=== PATIENT | female | born 1935 | race Caucasian/White ===

== ENCOUNTER 2018-02-04 23:51 | Inpatient (IN) | payer MEDICARE, SELFPAY ==
[2018-02-04 23:51] VITALS: BP 158/94; PULSE 125; RESP 20; TEMP 36.6; O2SAT 98; BMI 20.3
[2018-02-05] VITALS (23 sets, daily range): BP systolic 98–180; BP diastolic 54–114; PULSE 46–130; RESP 14–29; TEMP 36.6–37.2; O2SAT 89–99; BMI 21.7
--- NOTE | 2018-02-05 00:01 | EKG12_ITS ---
Test Reason : SOB Blood Pressure : / mmHG Vent. Rate : 132 BPM Atrial Rate : 113 BPM P-R Int : 000 ms QRS Dur : 090 ms QT Int : 356 ms P-R-T Axes : 000 -22 056 degrees QTc Int : 527 ms Atrial fibrillation Leftward axis Low voltage QRS (LIMB LEADS ) Poor R wave progression Abnormal ECG Confirmed by DAVIDA REYES, RUTHANN ([id number]), editorial manager ROWDY العراقي ([id number]) on 02/06/2018 1:15:18 PM Referred By: DAVID Confirmed By:RUTHANN HIGUERA MD
--- NOTE | 2018-02-05 00:01 | ED.VISSUMM ---
- ER Visit Summary Date of Service: 02/05/18 Chief Complaint: Shortness of breath History of Present Illness: The patient is a 82 F presents to the emergency department shortness of breath. Patient has a history of asthma and paroxysmal atrial fibrillation. She states she has been in normal state of health. She did have outpatient pulmonary function testing done about a month ago which did demonstrate moderate COPD. She states that she has not had any cough. She does admit over the past 3 days, she has had dyspnea that is worse with exertion. She will like her heart is racing. She states she does have a history of anxiety but this feels different. She thought it may be related to her underlying lung disease, so she did take 30 mg of prednisone today with no improvement. She denies any chest pain, but has had chest tightness. She feels like her heart is racing. She is not on any anticoagulants. She is not on any medications for rate control. She denies any fevers or chills. She does admit to some diaphoresis but denies nausea. She has no history of coronary vascular disease. Physical Examination: Vital signs reviewed General: Well-nourished, well-developed Head: Normocephalic, atraumatic Eyes: Pupils equal and reactive, extraocular muscles intact Neck, supple, no lymphadenopathy Heart: Irregular tachycardic rate Respiratory: No distress, crackles in bases bilaterally Abdomen: Soft, nontender, nondistended, no peritoneal signs Back: Nontender Extremities: Nontender, no edema, no cords Skin: Normal color no rash Neuro: Alert and oriented, no focal or lateralizing deficits Test Results: [] Emergency Department Course and Treatment: Patient presents to the emergency department with dyspnea. She did have some slight crackles in her bases. There was no wheezing. She has no peripheral edema. EKG was obtained which demonstrated atrial fibrillation with rapid ventricular response. Patient was given 10 mg of diltiazem and her heart rate decreased to 100. He was then started on a low-dose drip. Screening labs are relatively unremarkable. Chest x-ray does show evidence of volume overload and was read as questionable infiltrate, however the patient has had no cough, no fever, no chills, no infectious symptoms. I do feel that this is likely heart failure. Patient was sent for CTA of the chest. There is no evidence of pulmonary embolus. She does have a 1 cm mass in the upper left lobe. This will need further evaluation with the patient is hospitalized. Given her dyspnea with symptomatic A. fib with RVR, I do feel that she is going require admission, especially as she has new onset congestive heart failure. Patient was discussed with the hospitalist will be admitted at this time. Treatment Plan: [] Disposition: Admission Impression: 1. Dyspnea 2. New onset A. fib RVR 3. New onset congestive heart failure This note was generated with [employer] dictation software. It may contain incorrect words, spelling, and punctuation that were not noted in review of the chart prior to signing ED Disposition - Plan for ED Patient: Chief Complaint: Shortness of Breath Referrals: Cielo Ribeiro MD [Primary Care Provider] -
[2018-02-05] MEDS: 0.9% Normal Saline 1,000 ML 1000 ML IV (00:08)
[2018-02-05] MEDS: dilTIAZem 25 MG/5 ML Vial 10 MG IV BOLUS (00:08)
[2018-02-05 00:40] LABS: Absolute Neutrophil Count 4.4 X10^3/uL (2.0-7.7); Basophil# 0.01 X10^3/uL; Basophil% 0.2 % (0-1); Differential Indicated SCAN CRITERIA MET; Eosinophil# 0.01 X10^3/uL; Eosinophils% 0.2 % (0-5); Hematocrit 40.7 % (37-47); Hemoglobin 13.4 g/dl (12.0-15.0); Lymphocyte % 11.8 % (19-41); Mean Corp Hgb Conc 32.9 g/gl (32-36); Mean Corpuscular Volume 88.1 fL (81-99); Mean Platelet Vol. 11.1 fl (6.2-12.0); Monocyte# 0.07 X10^3/uL; Monocyte% 1.4 % (0-10); Neutrophil % 86.2 % (47-70); POSITIVE COUNT NO; POSITIVE DIFFERENTIAL YES; POSITIVE MORPHOLOGY NO; Platelet Count 198 K/mm3 (150-450); RBC Distribution Width CV 13.9 % (11.6-14.6); RBC Distribution Width SD 44.7 fl (35.1-43.9); Red Blood Count 4.62 M/mm3 (4.2-5.4); White Blood Count 5.1 K/mm3 (4.4-11.0)
--- NOTE | 2018-02-05 00:40 | RAD_ITS ---
STUDY: X-RAY CHEST REASON FOR EXAM: Female, 82 years old. Cough. TECHNIQUE: AP portable chest. COMPARISON: October 23, 2013 FINDINGS: There are now small bilateral pleural effusions. Patchy airspace opacity right lung base. No pneumothorax. Normal size heart. Normal mediastinum and valarie. Normal visualized pulmonary arteries. Normal visualized aortic arch and descending thoracic aorta. Normal visualized thoracic spine. Normal visualized ribs, clavicles, and shoulders. There is no demonstrated abnormality of the visualized soft tissue structures of the upper abdomen. RAD/Chest 1 View (Portable) IMPRESSION: New small bilateral pleural effusions with new right basilar airspace opacity. Consider a right middle and/or lower lobe pneumonia. Electronically Signed: Sixto Sánchez MD at 1:03 EDT , Service support ,
[2018-02-05 00:42] LABS: ALB/GLOB Ratio 1.1 RATIO (0.9-2.4); AST(SGOT) 43 U/L (15-37); Alanine Aminotransfer ALT/SGPT 45 U/L (13-56); Albumin, Serum 3.9 g/dL (3.2-5.0); Alkaline Phosphatase 78 U/L (45-117); Anion Gap 10 (5-15); BUN 26 mg/dL (7-18); BUN/Creat Ratio 24.1 RATIO (10-20); Calcium,Total 8.7 mg/dL (8.5-10.1); Chloride 107 mmol/L (98-107); Creatinine, Serum 1.08 mg/dL (0.55-1.02); EST Glomerular Filtration Rate 52 mL/min (>60); Est Glom Filt Rate - Afr Amer 63 mL/min (>60); Estimated Creatinine Clearance 38.03 ml/min; Globulin 3.5 g/dL (2.2-4.2); Glucose 139 mg/dL (74-106); Potassium 4.2 mmol/L (3.5-5.1); Protein, Total 7.4 g/dL (6.4-8.2); Sodium Level 138 mmol/L (136-145)
[2018-02-05 01:05] LABS: Differential Comment SCANNED
--- NOTE | 2018-02-05 01:06 | CT_ITS ---
STUDY: CTA CHEST REASON FOR EXAM: Female, 82 years old. Hypoxia. History of COPD. RADIATION DOSAGE (If Supplied By Facility): CTDIvol = ( 6.87 ) mGy, DLP = ( 200.60 ) mGycm TECHNIQUE: The examination was performed with the intravenous administration of 75ML ml of Isovue 370 contrast material. Post-processing of the angiographic images was performed, with multiplanar reformation and 3D reconstruction. Individualized dose optimization techniques were used for this CT. COMPARISON: Chest x-ray February 05, 2018 and October 23, 2013. FINDINGS: Normal enhancement of the main pulmonary artery and right and left pulmonary arteries. Normal enhancement of the bilateral peripheral pulmonary arteries. There is no demonstrated pulmonary embolism. Main pulmonary artery is dilated. Normal thoracic aorta and visualized great vessels. There is no demonstrated aortic dissection. Mild cardiomegaly with left atrial enlargement. Normal mediastinum. Normal hilar regions. Normal visualized trachea and bronchi. 1.0 x 0.9 cm spiculated noncalcified lung nodule, lateral pleural surface left lung apex, axial image 215 series 2. Wedge-shaped consolidation within the right middle lobe. Left lower lobe atelectasis. Small to moderate bilateral pleural effusions, right greater than left. Scattered groundglass opacities right middle lobe and both lung bases left greater than right suggestive of edema. Normal chest wall structures. Degenerative changes of the thoracic spine. Mild anterior wedging of the T8 vertebral body which is probably old. A fracture line is not identified. Normal visualized upper abdomen. CT/CTA Chest W/WO Contrast IMPRESSION: No pulmonary embolus or thoracic aortic dissection. 1 cm spiculated left apical lung nodule worrisome for malignancy. Recommend additional workup. Right middle lobe consolidation suggestive of pneumonia. Recommend continued follow-up until resolution to exclude a mass. Bilateral pleural effusions right greater than left. Dilatation of the main pulmonary artery suggestive of pulmonary arterial hypertension among other etiologies. Mild cardiomegaly. Groundglass lung opacities suggestive of mild vascular congestion. Left lower lobe atelectasis probably related to the left pleural effusion. Left lower lobe pneumonia is a consideration. Additional nonemergent findings as above. Electronically Signed: Sixto Sánchez MD at 1:59 EDT , Service support ,
[2018-02-05 01:09] LABS: BNP,B-Type NATRIURETIC PEPTIDE 469.7 pg/mL (0-100)
[2018-02-05] MEDS: LORazepam 2 MG/ML Syringe 0.5 MG IV ×2 (02:30→22:34)
--- NOTE | 2018-02-05 02:56 | HP.PCM_ITS ---
Problem List (1) Acute respiratory failure with hypoxia Status: Acute (2) New onset of congestive heart failure Status: Acute (3) Atrial fibrillation with RVR Status: Acute (4) Secondary pulmonary arterial hypertension Status: Chronic Comment: RVSP 43 mmhg per echo 09/22/2016 @ [facility] (5) PVCs (premature ventricular contractions) Status: Chronic (6) Ascending aorta dilatation Status: Chronic (7) Nonrheumatic tricuspid valve regurgitation Status: Chronic (8) Nonrheumatic mitral valve regurgitation Status: Chronic (9) First degree AV block Status: Chronic (10) Paroxysmal atrial fibrillation Status: Chronic History of Present Illness Date of Admission: 02/05/18 Chief Complaint: SOB The patient is a 82 year old female w/ h/o pulmonary HTN, tricuspid valve regurgitation, paroxysmal afib, and first degree AV block admitted for new onset heart failure. She has been getting progressively SOB for the last few months. Her SOB is so severe that it limited her ADLs. She has trouble walking out to get her mail without becoming severely SOB. She has a dry chronic cough. Nothing appeared to make her SOB better or worse. She has seen her PCP in August for SOB and was told that it may be secondary to her afib. She had palpitation associated with her SOB for the past few days. She took 30mg of prednisone to help with her SOB but it did not help. She has tightness around her chest. Tightness is constant and moderate. Nothing made it better or worse. Past Medical History Past Medical History (Chronic Problems): Chronic Problems (Last Reviewed 09/22/17 @ 12:39 by Jw Rodriguez MD) Abnormal electrocardiogram (Chronic) Secondary pulmonary arterial hypertension (Chronic) RVSP 43 mmhg per echo 09/22/2016 @ [facility] PVCs (premature ventricular contractions) (Chronic) Ascending aorta dilatation (Chronic) Nonrheumatic tricuspid valve regurgitation (Chronic) Nonrheumatic mitral valve regurgitation (Chronic) First degree AV block (Chronic) Paroxysmal atrial fibrillation (Chronic) Medical History: Medical History (Last Reviewed 02/05/18 @ 02:51 by Dhaval Barclay MD) Secondary pulmonary arterial hypertension (Chronic) I27.21 RVSP 43 mmhg per echo 09/22/2016 @ [facility] PVCs (premature ventricular contractions) (Chronic) I49.3 Ascending aorta dilatation (Chronic) I77.810 Nonrheumatic tricuspid valve regurgitation (Chronic) I36.1 Nonrheumatic mitral valve regurgitation (Chronic) I34.0 First degree AV block (Chronic) I44.0 Paroxysmal atrial fibrillation (Chronic) I48.0 Arthritis M19.90 Asthma J45.909 Fibromyalgia M79.7 Allergies No Known Allergies Allergy (Verified 02/04/18 23:53) Home Medications: Ambulatory Orders Medication Instructions Recorded Albuterol Sulfate [Proventil Hfa] 2 puff IH 4X/DAY PRN PRN 05/14/13 Calcium Carb/Vitamin D 2 tab PO DAILY 05/14/13 [Caltrate-600 With Vit D Tab] Montelukast [Singulair] 10 mg PO DAILY 05/14/13 Paroxetine HCl [Paxil] 10 mg PO DAILY 05/14/13 traZODone [Desyrel] 100 mg PO QHS 05/14/13 Clonazepam [Klonopin] 1 mg PO DAILY PRN PRN 09/14/16 Meloxicam [Mobic] 15 mg PO DAILY 09/14/16 aspirin 81 mg tablet,delayed 81 mg PO QDAY tab 09/21/17 release Beclomethasone Diprop Inhaler 2 puff INHALATION BID 02/05/18 [Qvar 80 Mcg Inhaler] Ergocalciferol [Vitamin D] 50,000 unit PO Q7D 02/05/18 Hydrocortisone [Anusol Hc] 25 mg RECTAL BID PRN PRN 02/05/18 Surgical History: Surgical History (Last Reviewed 02/05/18 @ 02:51 by Dhaval Barclay MD) History of bilateral hip replacements Z96.643 History of hysterectomy Z98.890, Z90.710 History of tonsillectomy Z98.890, Z90.89 Hx of cholecystectomy Z98.890, Z90.49 Surgical History: - - Partial hysterectomy, cholecystectomy, tonsillectomy, right total hip arthroplasty. 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 Denies: Fever, Weight Change HEENT: Denies: Head Aches, Sinus Congestion, Sinus Drainage Cardiovascular: Reports: Chest Pain. Denies: Palpitations Respiratory: Reports: Cough, Shortness of Breath. Denies: Shortness of breath at rest, Sputum production Gastrointestinal: Denies: Abdominal Pain, Nausea, Vomiting Genitourinary: Denies: Dysuria Musculoskeletal: Denies: Joint Pain, Joint Tenderness Skin: Denies: Rash, Wounds Neurological: Denies: Numbness, Tingling, Focal weakness Psychiatric: Denies: Anxiety, Depression, Homicidal Ideations, Suicidal Ideations Hematologic/ Lymphatic: Denies: Easy Bruising, Easy Bleeding VTE Information - Inpt Only VTE Present on Admission: No VTE Mechan Device Prophylaxis: SCD's VTE Pharm Prophylaxis ordered?: Yes Patient Problems: Active and Suspected Problems (Last Reviewed 09/22/17 @ 12:39 by Jw Rodriguez MD ) Acute respiratory failure with hypoxia (Acute) New onset of congestive heart failure (Acute) Atrial fibrillation with RVR (Acute) - Physical Exam General: Alert, Oriented x3, Cooperative HEENT: Atraumatic, PERRLA, EOMI, Normocephalic Neck: Supple, No JVD, Negative Carotid Bruits Lungs: Diminished, Rales Cardiovascular: Irregular Rate, Murmur, Tachycardic Abdomen: Bowel Sounds Present, Soft, Non Tender Extremities: No edema, Capillary Refill Less than 3 Seconds Skin: No rashes, No breakdown Musculoskeletal: No Tenderness to Palpation of Joints or Extremities Neurological: Cranial nerves II-XII grossly intact Psych/Mental Status: Normal Affect, Appropriate Vital Signs Temp Pulse Resp BP Pulse Ox 97.8 F 114 H 20 H 141/92 H 97 02/04/18 23:51 02/05/18 01:55 02/05/18 01:55 02/05/18 01:55 02/05/18 01:55 Assessment/Plan All Active Problems (Last Reviewed 09/22/17 @ 12:39 by Jw Rodriguez MD) Acute respiratory failure with hypoxia (Acute) New onset of congestive heart failure (Acute) Atrial fibrillation with RVR (Acute) 82 year old female w/ h/o pulmonary HTN, tricuspid valve regurgitation, paroxysmal afib, and first degree AV block admitted for new onset heart failure. 1) Acute hypoxic respiratory failure: Most likely secondary to new onset heart failure. CTA disclosed no PE and is consistent with effusion and atelectasis. Will start lasix 20mg IV Q8H. C/w oxygen. 2) New onset heart failure: Will get ECHO. Will also get trops. Followed trops. Consulted cards. C/w meds. 3) New onset afib with RVR: Will start heparin. C/w cardizem gtt. Will also start betablocker. Serial labs. 4) Left lobe mass: [address] Will consult pulmonary. H/o moderate COPD. Resume home meds. 5) Prophylaxis: SCD / heparin
[2018-02-05 03:20] LABS: Hematocrit 39.3 % (37-47); Hemoglobin 13.1 g/dl (12.0-15.0); Mean Corp Hgb Conc 33.3 g/gl (32-36); Mean Corpuscular Hgb 29.4 pg (27.0-32.0); Mean Corpuscular Volume 88.3 fL (81-99); Mean Platelet Vol. 10.8 fl (6.2-12.0); Platelet Count 203 K/mm3 (150-450); RBC Distribution Width CV 13.7 % (11.6-14.6); RBC Distribution Width SD 43.4 fl (35.1-43.9); Red Blood Count 4.45 M/mm3 (4.2-5.4); White Blood Count 6.2 K/mm3 (4.4-11.0)
[2018-02-05 03:23] LABS: Scan Indicated on CBC? Y/N NO
[2018-02-05] MEDS: HEPARIN/D5w 25,000 UNITS 25,000 UNITS/250 ML IV.SOLN. 10 UNITS IV (03:29)
[2018-02-05 03:59] LABS: D-Dimer Quantitative (DVT/PE) 0.69 FEU/ug/m (0.27-0.49)
[2018-02-05 04:53] LABS: International Normalized Ratio 1.1; Partial Thromboplast Time 33.2 Seconds (24.1-36.2)
[2018-02-05 04:55] LABS: ALB/GLOB Ratio 1.2 RATIO (0.9-2.4); AST(SGOT) 72 U/L (15-37); Alanine Aminotransfer ALT/SGPT 63 U/L (13-56); Albumin, Serum 3.7 g/dL (3.2-5.0); Alkaline Phosphatase 77 U/L (45-117); Anion Gap 12 (5-15); BUN 25 mg/dL (7-18); BUN/Creat Ratio 25.1 RATIO (10-20); Calcium,Total 8.3 mg/dL (8.5-10.1); Chloride 107 mmol/L (98-107); Cholesterol 209 mg/dL (200); EST Glomerular Filtration Rate 57 mL/min (>60); Est Glom Filt Rate - Afr Amer 69 mL/min (>60); Estimated Creatinine Clearance 42.91 ml/min; Globulin 3.2 g/dL (2.2-4.2); Glucose 146 mg/dL (74-106); High Density Lipoprotein 108 mg/dL; Potassium 4.1 mmol/L (3.5-5.1); Protein, Total 6.9 g/dL (6.4-8.2); Sodium Level 140 mmol/L (136-145); Thyroid Stim Hormone (TSH) 2.64 uIU/mL (0.358-3.74); Triglycerides 38 mg/dL; Very Low Density Lipoprotein 8 mg/dL (5-40)
[2018-02-05] MEDS: Heparin Injection (Vial) 5,000 UNIT/ML VIAL 4500 UNIT IV (05:01)
[2018-02-05] MEDS: Furosemide 20 MG/2 ML VIAL IV (05:02)
[2018-02-05] MEDS: 0.9% NaCl Peripheral Flush Adult/Peds IV ×3 (05:02→22:33)
[2018-02-05] MEDS: clonazePAM 1 MG Tablet PO (05:21)
--- NOTE | 2018-02-05 05:55 | ECHOD_ITS ---
Reason For Study: CHF Procedure This was a 2D Doppler, Color Flow transthoracic echocardiogram. The study was technically difficult. Exam performed portable in ICU/CCU. Left Ventricle Normal size and thickness. The estimated ejection fraction is 35-40 %. There is moderate global hypokinesis of the left ventricle. Right Ventricle Normal size and thickness. Normal systolic function. Atria The left atrium is severely enlarged. The right atrium is moderately enlarged. Normal atrial septum. Mitral Valve Mild diffuse mitral valve thickening. Moderate (2+) mitral valve insufficiency. Tricuspid Valve Normal tricuspid valve. Mild to moderate (1-2+) tricuspid valve insufficiency. Right ventricular systolic pressure estimated to be 35 mmHg. Aortic Valve Trisinus/trileaflet aortic valve. Normal aortic valve. Pulmonic Valve The pulmonic valve is not well visualized. Great Vessels Normal aortic root. Normal arch. The inferior vena cava is dilated. No collapse of the inferior vena cava. Pericardium/Pleural Trivial pericardial effusion. There are no echocardiographic indications of cardiac tamponade. Moderate size left pleural effusion. MMode/2D Measurements & Calculations LVIDd: 4.6 cm IVSd: 0.93 cm Ao root diam: 3.4 cm LVIDs: 3.5 cm LVPWd: 0.93 cm LA dimension: 4.3 cm RVDd: 2.7 cm FS: 23.9 % LAV(MOD-bp): 81.5 ml LA A4 area: 26.1 cm2 RA A4 area: 21.9 cm2 LAV(MOD-bp) Indexed: 48.4 ml/m2 LAV(MOD-sp2): 70.3 ml LAV(MOD-sp4): 91.1 ml Doppler Measurements & Calculations MV E max joaquin: 99.7 cm/sec Lat Peak E' Joaquin: 10.1 cm/sec Med Peak E' Joaquin: 5.5 cm/sec E/E' lat: 9.8 E/E' med: 18.2 Ao V2 max: 92.6 cm/sec LV V1 max: 81.1 cm/sec PA V2 max: 65.1 cm/sec Ao max P.4 mmHg LV V1 max P.6 mmHg TR max joaquin: 212.5 cm/sec TR max P.1 mmHg Interpretation Summary The estimated ejection fraction is 35-40 %. There is moderate global hypokinesis of the left ventricle. The left atrium is severely enlarged. The right atrium is moderately enlarged. Moderate (2+) mitral valve insufficiency. Mild to moderate (1-2+) tricuspid valve insufficiency. Right ventricular systolic pressure estimated to be 35 mmHg. Moderate size left pleural effusion. Pt appears to be in atrial fibrillatin. There is no comparison study available. Ordering Physician: Dhaval Barclay Referring Physician: Cielo Ribeiro Performed By: Aixa France RDCS, RVT
[2018-02-05] MEDS: Budesonide Respules 0.5 MG/2 ML AMPUL.NEB. INHALATION ×2 (06:39→19:05)
--- NOTE | 2018-02-05 06:44 | CON.PCM_ITS ---
Problem List (1) New onset of congestive heart failure Status: Acute (2) Atrial fibrillation with RVR Status: Acute (3) Secondary pulmonary arterial hypertension Status: Chronic Comment: RVSP 43 mmhg per echo 09/22/2016 @ [facility] (4) PVCs (premature ventricular contractions) Status: Chronic (5) Ascending aorta dilatation Status: Chronic (6) Nonrheumatic tricuspid valve regurgitation Status: Chronic (7) Nonrheumatic mitral valve regurgitation Status: Chronic (8) First degree AV block Status: Chronic Reason for Consult Date of Consultation: 02/05/18 Reason for Consultation: Lung nodule History of Present Illness: The patient is a 82 year old F, with past medical history listed below, who presented to [facility] on 02/05/2018 secondary to progressive shortness of breath. Patient does carry a history of moderate COPD/asthma and paroxysmal atrial fibrillation who presented with several weeks history of progressive shortness of breath. Patient states that this significantly worsened over the last 3 days and was associated with palpitations. Patient does report a history of anxiety, but feels this is different than previous. Patient stated that she noted significant symptoms with walking to the mailbox into the basement. Patient did attempt to take 30 mg of prednisone at home given her history of lung disease with no improvement. Patient does not normally take rate control medications or anticoagulants. Patient has not reported any constitutional symptoms such as fever, chills, nausea, vomiting or rash. Patient does report occasional night sweats. In the emergency room, patient was noted to have crackles on exam and A. fib with RVR. Patient was initiated on diltiazem. CTA did not show any pulmonary embolism. However, CTA did show a 1 cm spiculated nodule of the left upper lobe. Patient was admitted for new onset CHF secondary to A. fib with RVR, but consultation for lung nodule was also obtained. Patient denies any recent weight loss, hemoptysis or syncope. Patient does report the onset of an achy type sensation bilaterally over the last 3-4 days. Patient denies any sharp pleuritic type chest pain. Patient does report that she has Up with her routine cancer screening such as mammograms and colonoscopy and states they have always been normal. Patient denies any family history of malignancy. Patient reports that she has never been a smoker. Patient denies any exposure to asbestos or tuberculosis. Patient does report secondhand smoke from her . Patient denies ever requiring supplemental oxygen previously to maintain appropriate saturations. Past Medical History Past Medical History (Chronic Problems): Chronic Problems (Last Reviewed 02/05/18 @ 02:51 by Dhaval Barclay MD) Abnormal electrocardiogram (Chronic) Secondary pulmonary arterial hypertension (Chronic) RVSP 43 mmhg per echo 09/22/2016 @ [facility] PVCs (premature ventricular contractions) (Chronic) Ascending aorta dilatation (Chronic) Nonrheumatic tricuspid valve regurgitation (Chronic) Nonrheumatic mitral valve regurgitation (Chronic) First degree AV block (Chronic) Paroxysmal atrial fibrillation (Chronic) Medical History: Medical History (Last Reviewed 02/05/18 @ 02:51 by Dhaval Barclay MD) Secondary pulmonary arterial hypertension (Chronic) I27.21 RVSP 43 mmhg per echo 09/22/2016 @ [facility] PVCs (premature ventricular contractions) (Chronic) I49.3 Ascending aorta dilatation (Chronic) I77.810 Nonrheumatic tricuspid valve regurgitation (Chronic) I36.1 Nonrheumatic mitral valve regurgitation (Chronic) I34.0 First degree AV block (Chronic) I44.0 Paroxysmal atrial fibrillation (Chronic) I48.0 Arthritis M19.90 Asthma J45.909 Fibromyalgia M79.7 Allergies No Known Allergies Allergy (Verified 02/04/18 23:53) Home Medications: Ambulatory Orders Medication Instructions Recorded Albuterol Sulfate [Proventil Hfa] 2 puff IH 4X/DAY PRN PRN 05/14/13 Calcium Carb/Vitamin D 2 tab PO DAILY 05/14/13 [Caltrate-600 With Vit D Tab] Montelukast [Singulair] 10 mg PO DAILY 05/14/13 Paroxetine HCl [Paxil] 10 mg PO DAILY 05/14/13 traZODone [Desyrel] 100 mg PO QHS 05/14/13 Clonazepam [Klonopin] 1 mg PO DAILY PRN PRN 09/14/16 Meloxicam [Mobic] 15 mg PO DAILY 09/14/16 aspirin 81 mg tablet,delayed 81 mg PO QDAY tab 09/21/17 release Beclomethasone Diprop Inhaler 2 puff INHALATION BID 02/05/18 [Qvar 80 Mcg Inhaler] Ergocalciferol [Vitamin D] 50,000 unit PO Q7D 02/05/18 Hydrocortisone [Anusol Hc] 25 mg RECTAL BID PRN PRN 02/05/18 Surgical History: Surgical History (Last Reviewed 02/05/18 @ 02:51 by Dhaval Barclay MD) History of bilateral hip replacements Z96.643 History of hysterectomy Z98.890, Z90.710 History of tonsillectomy Z98.890, Z90.89 Hx of cholecystectomy Z98.890, Z90.49 Surgical History: - - Partial hysterectomy, cholecystectomy, tonsillectomy, right total hip arthroplasty. Psychiatric History: No pertinent psych hx MEDICAL SOCIAL WORKER History: No pertinent MEDICAL SOCIAL WORKER history Smoking Status: Never smoker Review of Systems Comment: See HPI, otherwise negative ?10 systems. Patient Problems: Active and Suspected Problems (Last Reviewed 02/05/18 @ 02:51 by Dhaval Barclay MD) Acute respiratory failure with hypoxia (Acute) New onset of congestive heart failure (Acute) Atrial fibrillation with RVR (Acute) Objective: CT scan of the chest was personally reviewed. This does show bilateral pleural effusions and a 1 cm left apical spiculated nodule. Patient also has a right middle lobe atelectatic versus mass noted. - Physical Exam General: Alert, Oriented x3, Cooperative, No apparent distress, - - Appears stated age. Speaking in full sentences. HEENT: Atraumatic, PERRLA, EOMI, Normocephalic, - - No scleral icterus or injection noted. Oral: Moist Mucosa, No Gingival or Mucosal Lesions/ Ulcerations Neck: Supple, No Nodes, Trachea Midline, JVD, Right Lungs: No rhonchi, No wheeze, Diminished, Rales, - - Symmetric expansion. Dullness to percussion at both bases. Cardiovascular: Regular rate, Regular Rhythm, Normal S1, Normal S2, Murmur - Grade 2 out of 6 systolic ejection murmur at the right sternal border, No rub noted, No Gallop, - - Telemetry shows continued atrial fibrillation, but rate controlled. Abdomen: Bowel Sounds Present, Soft, Non Tender, Non-Distended Extremities: No clubbing, No cyanosis, No edema, Capillary Refill Less than 3 Seconds Skin: No rashes, No breakdown Musculoskeletal: No Tenderness to Palpation of Joints or Extremities, No Muscle Wasting Lymphatic: No Cervical, Supraclavicular, or Inguinal Adenopathy Neurological: Cranial nerves II-XII grossly intact, Neuro grossly intact, Motor Exam 5/5 strength throughout Psych/Mental Status: Appropriate, Anxious Vital Signs Temp Pulse Resp BP Pulse Ox 36.6 C 92 24 H 149/82 H 93 02/05/18 05:00 02/05/18 05:00 02/05/18 05:00 02/05/18 05:00 02/05/18 05:00 Oxygen Flow Rate (L/min) 4 Oxygen Delivery Method Nasal Cannula Weight: 62.8 kg Body Mass Index (BMI) 21.7 Laboratory Tests Past 24 Hrs 02/05/18 02/05/18 02/05/18 03:05 03:05 03:05 WBC 6.2 RBC 4.45 Hgb 13.1 Hct 39.3 MCV 88.3 MCH 29.4 MCHC 33.3 RDW 13.7 RDW Differential 43.4 Plt Count 203 MPV 10.8 PT INR APTT D-Dimer Quant (PE/DVT) 0.69 H* Sodium 140 Potassium 4.1 Chloride 107 Carbon Dioxide 21.0 Anion Gap 12 BUN 25 H Creatinine 1.00 Estim Creat Clear Calc 42.91 Est GFR (MDRD) Af Amer 69 Est GFR (MDRD) Non-Af 57 L BUN/Creatinine Ratio 25.1 H Glucose 146 H Calcium 8.3 L Total Bilirubin 1.30 H AST 72 H ALT 63 H Alkaline Phosphatase 77 Troponin I B-Natriuretic Peptide Total Protein 6.9 Albumin 3.7 Globulin 3.2 Albumin/Globulin Ratio 1.2 Triglycerides 38 Cholesterol 209 H LDL Cholesterol 93 VLDL Cholesterol 8 HDL Cholesterol 108 TSH 2.64 02/05/18 02/05/18 02/05/18 03:05 03:05 03:05 WBC RBC Hgb Hct MCV MCH MCHC RDW RDW Differential Plt Count MPV PT 14.0 INR 1.1 APTT 33.2 D-Dimer Quant (PE/DVT) Sodium Potassium Chloride Carbon Dioxide Anion Gap BUN Creatinine Estim Creat Clear Calc Est GFR (MDRD) Af Amer Est GFR (MDRD) Non-Af BUN/Creatinine Ratio Glucose Calcium Total Bilirubin AST ALT Alkaline Phosphatase Troponin I < 0.015 B-Natriuretic Peptide Cancelled Total Protein Albumin Globulin Albumin/Globulin Ratio Triglycerides Cholesterol LDL Cholesterol VLDL Cholesterol HDL Cholesterol TSH Clinical Impression(s) from Imaging Studies Chest X-Ray 02/05/18 00:40 IMPRESSION: New small bilateral pleural effusions with new right basilar airspace opacity. Consider a right middle and/or lower lobe pneumonia. Electronically Signed: Sixto Sánchez MD at 1:03 EDT , Service support , Chest CTA 02/05/18 01:06 IMPRESSION: No pulmonary embolus or thoracic aortic dissection. 1 cm spiculated left apical lung nodule worrisome for malignancy. Recommend additional workup. Right middle lobe consolidation suggestive of pneumonia. Recommend continued follow-up until resolution to exclude a mass. Bilateral pleural effusions right greater than left. Dilatation of the main pulmonary artery suggestive of pulmonary arterial hypertension among other etiologies. Mild cardiomegaly. Groundglass lung opacities suggestive of mild vascular congestion. Left lower lobe atelectasis probably related to the left pleural effusion. Left lower lobe pneumonia is a consideration. Additional nonemergent findings as above. Electronically Signed: Sixto Sánchez MD at 1:59 EDT , Service support , Assessment/Plan All Active Problems (Last Reviewed 02/05/18 @ 02:51 by Dhaval Barclay MD) Acute respiratory failure with hypoxia (Acute) New onset of congestive heart failure (Acute) Atrial fibrillation with RVR (Acute) RECOMMENDATIONS: 1. Await echocardiogram 2. Diuresis as tolerated 3. Wean oxygen as tolerated 4. Repeat CT scan in 1-2 months 5. Incentive spirometer 6. No antibiotics or steroids are indicated from my perspective IMPRESSIONS: 1. Lung nodule/acute hypoxic respiratory insufficiency secondary to CHF with pleural effusions Unclear etiology at this time. Patient is significantly fluid overloaded at this time and this may represent pulmonary edema versus possible malignancy. Patient does carry a diagnosis of COPD, but decompensated congestive heart failure can appear as COPD on pulmonary function testing. Patient does not report any smoking history. Would not recommend CT-guided biopsy at this time. Patient should be volume optimized and have a repeat CT scan in the future. If condition continues to worsen, a thoracentesis (diagnostic/therapeutic) may be helpful in differentiating. Low clinical suspicion for pneumonia at this time given lack of constitutional symptoms. Do not believe antibiotics or steroids are necessary at this time. Do anticipate a possible increase in leukocytosis over the next 24 hours given patient's dosing of prednisone as an outpatient. Would not initiate antibiotics unless patient were to have other constitutional symptoms such as fever or productive cough. 2. Acute congestive heart failure secondary to A. fib with RVR Cardiology is currently consulted. Patient's rate is better controlled at this time. Patient does remain on heparin and diltiazem for rate control. Echocardiogram has been ordered. Patient reportedly has refused anticoagulation in the past. Patient sees Dr. Rodriguez as an outpatient. Patient reportedly does have mitral and tricuspid regurgitation with secondary pulmonary hypertension, but no echocardiogram is available for review at this time. Await cardiology recommendations. Patient is currently on anticoagulation. 3. Fibromyalgia/reported asthma/secondary pulmonary hypertension/advanced age/anxiety Complicates care, management, recovery and prognosis. Keep saturations greater than 90% to optimize pulmonary pressures. Okay to continue with baseline anxiety medications. Code Visit Inpatient E&M: 95511 Init Hosp L3
--- NOTE | 2018-02-05 07:20 | PN_ITS ---
Patient Problems: Active and Suspected Problems (Last Reviewed 02/05/18 @ 02:51 by Dhaval Barclay MD) Acute respiratory failure with hypoxia (Acute) New onset of congestive heart failure (Acute) Atrial fibrillation with RVR (Acute) Subjective: Patient was seen and examined. Admitted last night with shortness of breath and being managed as A. fib with RVR as well as new onset CHF. She still complains of feeling short of breath. She complains of some vague chest pain that radiates across upper abdomen to the left side. She has been unable to sleep yesterday. Denies any dizziness or palpitations or leg swelling Telemetry shows A. fib, rate controlled Vitals/I&O's: Vital Signs Temp Pulse Resp BP Pulse Ox 97.9 F 65 16 119/77 93 02/05/18 06:00 02/05/18 06:40 02/05/18 06:40 02/05/18 06:00 02/05/18 06:40 Oxygen Flow Rate (L/min) 4 Oxygen Delivery Method Nasal Cannula Weight: 62.8 kg Body Mass Index (BMI) 21.7 Intake and Output for Last 24 Hours 02/03/18 02/04/18 02/05/18 23:59 23:59 23:59 Intake Total 170.9 / 170.9 Output Total 400 / 400 Balance -229.1 / -229.1 General: Alert, Oriented x3, Cooperative, No apparent distress HEENT: Atraumatic, PERRLA, EOMI, Normocephalic Oral: Moist Mucosa Neck: Supple Lungs: Diminished, Rales - Decreased air entry in the middle and lower lung zones with crackles Cardiovascular: Regular rate, Regular Rhythm, Normal S1, Normal S2, No murmurs Abdomen: Bowel Sounds Present, Soft, Non Tender, Non-Distended, No Hepato- splenomegaly Extremities: Edema - Trace bilateral edema Skin: No rashes, No breakdown Musculoskeletal: No Tenderness to Palpation of Joints or Extremities Lymphatic: No Cervical, Supraclavicular, or Inguinal Adenopathy Neurological: Cranial nerves II-XII grossly intact, Neuro grossly intact Psych/Mental Status: Normal Affect, Appropriate Laboratory Results 02/05/18 03:05: WBC 6.2, RBC 4.45, Hgb 13.1, Hct 39.3, MCV 88.3, MCH 29.4, MCHC 33.3, RDW 13.7, RDW Differential 43.4, Plt Count 203, MPV 10.8 02/05/18 03:05: D-Dimer Quant (PE/DVT) 0.69 H* 02/05/18 03:05: Sodium 140, Potassium 4.1, Chloride 107, Carbon Dioxide 21.0, Anion Gap 12, BUN 25 H, Creatinine 1.00, Estim Creat Clear Calc 42.91, Est GFR ( MDRD) Af Amer 69, Est GFR (MDRD) Non-Af 57 L, BUN/Creatinine Ratio 25.1 H, Glucose 146 H, Calcium 8.3 L, Total Bilirubin 1.30 H, AST 72 H, ALT 63 H, Alkaline Phosphatase 77, Total Protein 6.9, Albumin 3.7, Globulin 3.2, Albumin/ Globulin Ratio 1.2, Triglycerides 38, Cholesterol 209 H, LDL Cholesterol 93, VLDL Cholesterol 8, HDL Cholesterol 108, TSH 2.64 02/05/18 03:05: B-Natriuretic Peptide Cancelled 02/05/18 03:05: PT 14.0, INR 1.1, APTT 33.2 02/05/18 03:05: Troponin I < 0.015 02/05/18 06:30: Troponin I < 0.015 Current Medications Aspirin (Ecotrin) 81 mg PO DAILYCM ASHER Budesonide (Pulmicort Aerosol) 0.5 mg INHALATION Q12H.RT ASHER Last Admin: 02/05/18 06:39 Dose: 0.5 mg Calcium/Vitamin D (Os-Deion 500mg + D) 2 tablet PO DAILY ASHER Carvedilol (Coreg) 6.25 mg PO BID ASHER Clonazepam (Klonopin) 1 mg PO DAILY PRN PRN PRN Reason: ANXIETY Last Admin: 02/05/18 05:21 Dose: 1 mg Ergocalciferol (Vitamin D) 50,000 unit PO Q7D ASHER Furosemide (Lasix) 20 mg IV Q8 ASHER Last Admin: 02/05/18 05:02 Dose: 20 mg Heparin Sodium (Porcine) (Heparin Na) 0 unit IV UD PRN PRN Reason: Protocol Hydrocortisone Acetate (Anusol Hc) 25 mg RECTAL BID PRN PRN PRN Reason: PAIN Diltiazem HCl 125 mg/ Dextrose 125 mls @ 5 mls/hr CONT INF .Q25H ASHER PRN Reason: 5 MG/HR Last Admin: 02/05/18 00:46 Dose: 5 mls/hr Heparin Sodium/Dextrose () 25,000 units in 250 mls @ 10 mls/hr IV .Q25H ASHER; As Directed PRN Reason: Protocol Last Admin: 02/05/18 03:29 Dose: 10 mls/hr Lisinopril (Zestril) 5 mg PO DAILY ASHER Lorazepam (Ativan) 0.5 mg IV Q4H PRN PRN PRN Reason: ANXIETY Montelukast Sodium (Singulair) 10 mg PO DAILY ASHER Paroxetine HCl (Paxil) 10 mg PO DAILY ASHER Sodium Chloride () 5 - 30 ml IV UD PRN PRN Reason: SALINE FLUSH Last Admin: 02/05/18 05:02 Dose: 30 ml Trazodone HCl (Desyrel) 100 mg PO QHS ASHER Medical Necessity - Tobacco Use Smoking Status: Never smoker Assessment/Plan All Active Problems (Last Reviewed 02/05/18 @ 02:51 by Dhaval Barclay MD) Acute respiratory failure with hypoxia (Acute) New onset of congestive heart failure (Acute) Atrial fibrillation with RVR (Acute) 82-year-old with history of paroxysmal atrial fibrillation about a year ago, not on anticoagulation, anxiety, asthma comes in with progressive shortness of breath ongoing for 1 week 1. Acute hypoxic respiratory insufficiency secondary to acute CHF/bilateral pleural effusions/atelectasis/A. fib with RVR, will continue management for above conditions, would wean off oxygen as can be tolerated, encourage use of incentive spirometer 2. Acute CHF, newly diagnosed, unclear EF, 2D echo pending, admitted to ICU under PCU status, started on Lasix, will increase to Lasix 40 mg IV twice daily , strict I's and O's, daily weights, follow-up on 2D echo results, cardiology consulted, would hold home meloxicam 3. Bilateral pleural effusion, likely secondary to acute CHF, will follow-up on effusions with treatment of CHF with diuretics, repeat chest x-ray in a.m. 4. Consolidation seen on both chest x-ray and CT of the chest concerning for possible right lower lobe pneumonia, no clinical evidence of pneumonia, will repeat chest x-ray in the morning 5. A. fib with RVR, rate controlled now, on Cardizem, and heparin, will follow up on 2D echo, cardiology consulted 6. Left lung nodule, pulmo consulted, needs to be followed up in the outpatient 7. COPD/asthma, no signs of exacerbation, will have as needed breathing treatment 8. Anxiety, on ativan prn, trazodone, Paxil , will continue same for now 9. DVT PPx- On heparin drip Code Visit Inpatient E&M: 47707 Init Hosp L3
[2018-02-05] MEDS: Furosemide 40 MG/4 ML Vial IV ×2 (08:53→22:33)
[2018-02-05] MEDS: Carvedilol 6.25 MG Tablet PO (08:57)
[2018-02-05] MEDS: Aspirin E.C. 81 MG Tablet PO (08:57)
[2018-02-05] MEDS: Calcium Carb/Vitamin D 1 TABLET Tablet 2 TABLET PO (08:57)
[2018-02-05] MEDS: PARoxetine 10 MG Tablet PO (08:58)
[2018-02-05] MEDS: Montelukast 10 MG Tablet PO (08:58)
[2018-02-05] MEDS: Lisinopril 5 MG Tablet PO (08:58)
--- NOTE | 2018-02-05 09:14 | PCM.CONS.C ---
Problem List (1) New onset of congestive heart failure Status: Acute (2) Atrial fibrillation with RVR Status: Acute (3) Secondary pulmonary arterial hypertension Status: Chronic Comment: RVSP 43 mmhg per echo 09/22/2016 @ [facility] (4) Paroxysmal atrial fibrillation Status: Chronic Reason for Consult Date of Consultation: 02/05/18 Reason for Consultation: Atrial fibrillation, pulmonary hypertension, History of Present Illness: The patient is a 82 year old F, patient of Dr. Rodriguez's who is seen by him for atrial fibrillation in the past, previous stress test on 10/05/16 the [facility] was negative for inducible ischemia, previous echocardiogram from September 2016 showed EF of 60-65%, moderate mitral regurgitation, 2+ TR, and an RVSP of 43 mmHg. Patient refused anticoagulation at that time. Patient was in normal health up until the last couple of weeks when she developed palpitations about 4 weeks ago. Apparently she is a lifelong non-smoker but apparently was diagnosed with COPD by Dr. Ribeiro approximately 1 year ago for shortness of breath. She states that she did undergo a pulmonary function tests. She has never had a TIA or CVA. She has had paroxysmal atrial fibrillation for the past 1-1/2 years. She denies any chest pain, angina, did complain of shortness of breath and apparently took a large dose of prednisone as she felt that this most likely was her lungs. CT scan done in the emergency room demonstrated a 1 cm right upper lobe spiculated mass suspicious for malignancy, bilateral pleural effusions, and pulmonary vascular redistribution. Her EKG on admission was atrial fibrillation with rapid ventricular response, no acute changes. Troponins are negative ?2. D-dimer is weakly elevated. [] Past Medical History Allergies/Adverse Reactions: Allergies No Known Allergies Allergy (Verified 02/04/18 23:53) Home Medications: Ambulatory Orders Medication Instructions Recorded Albuterol Sulfate [Proventil Hfa] 2 puff IH 4X/DAY PRN PRN 05/14/13 Calcium Carb/Vitamin D 2 tab PO DAILY 05/14/13 [Caltrate-600 With Vit D Tab] Montelukast [Singulair] 10 mg PO DAILY 05/14/13 Paroxetine HCl [Paxil] 10 mg PO DAILY 05/14/13 traZODone [Desyrel] 100 mg PO QHS 05/14/13 Clonazepam [Klonopin] 1 mg PO DAILY PRN PRN 09/14/16 Meloxicam [Mobic] 15 mg PO DAILY 09/14/16 aspirin 81 mg tablet,delayed 81 mg PO QDAY tab 09/21/17 release Beclomethasone Diprop Inhaler 2 puff INHALATION BID 02/05/18 [Qvar 80 Mcg Inhaler] Ergocalciferol [Vitamin D] 50,000 unit PO Q7D 02/05/18 Hydrocortisone [Anusol Hc] 25 mg RECTAL BID PRN PRN 02/05/18 Past Medical History (Chronic Problems): Chronic Problems (Last Reviewed 02/05/18 @ 02:51 by Dhaval Barclay MD) Abnormal electrocardiogram (Chronic) Secondary pulmonary arterial hypertension (Chronic) RVSP 43 mmhg per echo 09/22/2016 @ [facility] PVCs (premature ventricular contractions) (Chronic) Ascending aorta dilatation (Chronic) Nonrheumatic tricuspid valve regurgitation (Chronic) Nonrheumatic mitral valve regurgitation (Chronic) First degree AV block (Chronic) Paroxysmal atrial fibrillation (Chronic) Surgical History: - - Partial hysterectomy, cholecystectomy, tonsillectomy, right total hip arthroplasty. Psychiatric History: No pertinent psych hx SPECIAL AGENT History: No pertinent SPECIAL AGENT history Smoking Status: Never smoker Review of Systems - Review of Systems General: Denies: Fever, Night Sweats, Fatigue Cardiovascular: Reports: Shortness of Breath, Shortness of Breath with Exertion, Palpitations. Denies: Chest Discomfort, Orthopnea, PND, Peripheral Edema, Lightheadedness, Dizziness, Near Syncope, Syncope Respiratory: Denies: Cough, Sputum Production, Hemoptysis Gastrointestinal: Denies: Hematemesis, Hematochezia, Melena Genitourinary: Denies: Dysuria, Hematuria Skin: Denies: Rash Subjectve: Patient laying in bed, no acute distress. Objective: Vital Signs Temp Pulse Resp BP Pulse Ox 97.9 F 65 16 119/77 93 02/05/18 06:00 02/05/18 06:40 02/05/18 06:40 02/05/18 06:00 02/05/18 06:40 Oxygen Flow Rate (L/min) 4 Oxygen Delivery Method Nasal Cannula Weight: 138 lb 7.205 oz Body Mass Index (BMI) 21.7 Intake and Output for Last 24 Hours 02/03/18 02/04/18 02/05/18 23:59 23:59 23:59 Intake Total 170.9 / 170.9 Output Total 400 / 400 Balance -229.1 / -229.1 General: Awake, Alert, Oriented x 3 HEENT: PERRL, EOMI, Sclera Non Icteric Neck: Supple, Good ROM, No Lymph Node Enlargement Lungs: Clear to auscultation Cardiovascular: Irregular Rhythm, Normal S1, Normal S2, No Rubs, No Gallops Murmur Murmur: Grade 2/6, Holosystolic Vascular: No Carotid Bruits, Normal Femoral Pulses, Normal Radial Pulses, Normal Dorsalis Pedal Pulse, Normal Posterior Tibial Pulses Abdomen: Bowel Sounds Present, Soft, Non Tender, No HSM, No Organomegaly Extremities: No Cyanosis, No Clubbing, No edema Neurological: No Focal Motor or Sensory Deficit 02/05/18 03:05: WBC 6.2, RBC 4.45, Hgb 13.1, Hct 39.3, MCV 88.3, MCH 29.4, MCHC 33.3, RDW 13.7, RDW Differential 43.4, Plt Count 203, MPV 10.8 02/05/18 03:05: D-Dimer Quant (PE/DVT) 0.69 H* 02/05/18 03:05: Sodium 140, Potassium 4.1, Chloride 107, Carbon Dioxide 21.0, Anion Gap 12, BUN 25 H, Creatinine 1.00, Est GFR (MDRD) Af Amer 69, Est GFR (MDRD) Non-Af 57 L, BUN/Creatinine Ratio 25.1 H, Glucose 146 H, Calcium 8.3 L, Total Bilirubin 1.30 H, Triglycerides 38, Cholesterol 209 H, LDL Cholesterol 93, VLDL Cholesterol 8, HDL Cholesterol 108 02/05/18 03:05: B-Natriuretic Peptide Cancelled 02/05/18 03:05: PT 14.0, INR 1.1, APTT 33.2 02/05/18 03:05: Troponin I < 0.015 02/05/18 06:30: Troponin I < 0.015 Rhythm: EKG: ECHO: Stress Test: Cardiac Cath: PCI: CT Surgery: Holter monitor: EPS: PPM: CXR: Chest CT Scan: Assessment/Plan 1. Atrial fibrillation: The patient has had several episodes of atrial fibrillation and is at high risk for TIA/CVA, and possibly DVT as well. 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 Her heart rate is well controlled at this time on IV amiodarone. In addition she has been started on IV heparin drip for anticoagulation. Would recommend keeping her PTT between 50 and 70. Patient had a noninvasive nuclear stress test at the [facility] on 10/05/16 which was negative for inducible ischemia. Her recent echocardiogram showed intact LV function and mild pulmonary hypertension with an RVSP of approximately 43 mmHg. At this point I would recommend lifelong anticoagulation with Eliquis 2.5 mg p.o. twice daily. We will hold off on starting this until the workup for her spiculated lung mass has been completed. Patient has been seen by Dr. Jean-Paul Ramirez in consultation. In addition recommend titrating off her Cardizem drip to maintain heart rate less than 100. She is currently on Coreg would recommend decreasing her Coreg to 3.125 mg p.o. twice daily and titrating up from there. Mg p.o. twice daily. continue IV amiodarone until she is tolerating calcium channel dario therapy. Patient does come with a history of COPD although she is a lifelong non-smoker. This will need to be clarified by pulmonary. 2. It has been over a year since her echocardiogram, would recommend repeating her echocardiogram to monitor her LV function and pulmonary pressures. There was some suggestion the patient may have pulmonary congestion on her chest x-ray and is receiving IV Lasix at this time. She is currently laying down flat. 3. If the patient has a marked change in her echocardiogram from 1 year ago, and have a low threshold for diagnostic coronary angiogram prior to long-term anticoagulation therapy. 4. Discussed with Dr. Ramirez. Thank you very much for the opportunity to participate in the cardiac care of your patient. Consultation time took place between 9 AM and 9:30 AM. Code Visit Inpatient E&M: 43022 Init Hosp L2
--- NOTE | 2018-02-05 09:26 | CON.PCM_ITS ---
Problem List (1) New onset of congestive heart failure Status: Acute (2) Atrial fibrillation with RVR Status: Acute (3) Secondary pulmonary arterial hypertension Status: Chronic Comment: RVSP 43 mmhg per echo 09/22/2016 @ [facility] (4) Paroxysmal atrial fibrillation Status: Chronic Reason for Consult Date of Consultation: 02/05/18 Reason for Consultation: Atrial fibrillation, pulmonary hypertension, History of Present Illness: The patient is a 82 year old F, patient of Dr. Rodriguez's who is seen by him for atrial fibrillation in the past, previous stress test on 10/05/16 the [facility] was negative for inducible ischemia, previous echocardiogram from September 2016 showed EF of 60-65%, moderate mitral regurgitation, 2+ TR, and an RVSP of 43 mmHg. Patient refused anticoagulation at that time. Patient was in normal health up until the last couple of weeks when she developed palpitations about 4 weeks ago. Apparently she is a lifelong non- smoker but apparently was diagnosed with COPD by Dr. Ribeiro approximately 1 year ago for shortness of breath. She states that she did undergo a pulmonary function tests. She has never had a TIA or CVA. She has had paroxysmal atrial fibrillation for the past 1-1/2 years. She denies any chest pain, angina, did complain of shortness of breath and apparently took a large dose of prednisone as she felt that this most likely was her lungs. CT scan done in the emergency room demonstrated a 1 cm right upper lobe spiculated mass suspicious for malignancy, bilateral pleural effusions, and pulmonary vascular redistribution. Her EKG on admission was atrial fibrillation with rapid ventricular response, no acute changes. Troponins are negative ?2. D-dimer is weakly elevated. [] Past Medical History Allergies/Adverse Reactions: Allergies No Known Allergies Allergy (Verified 02/04/18 23:53) Home Medications: Ambulatory Orders Medication Instructions Recorded Albuterol Sulfate [Proventil Hfa] 2 puff IH 4X/DAY PRN PRN 05/14/13 Calcium Carb/Vitamin D 2 tab PO DAILY 05/14/13 [Caltrate-600 With Vit D Tab] Montelukast [Singulair] 10 mg PO DAILY 05/14/13 Paroxetine HCl [Paxil] 10 mg PO DAILY 05/14/13 traZODone [Desyrel] 100 mg PO QHS 05/14/13 Clonazepam [Klonopin] 1 mg PO DAILY PRN PRN 09/14/16 Meloxicam [Mobic] 15 mg PO DAILY 09/14/16 aspirin 81 mg tablet,delayed 81 mg PO QDAY tab 09/21/17 release Beclomethasone Diprop Inhaler 2 puff INHALATION BID 02/05/18 [Qvar 80 Mcg Inhaler] Ergocalciferol [Vitamin D] 50,000 unit PO Q7D 02/05/18 Hydrocortisone [Anusol Hc] 25 mg RECTAL BID PRN PRN 02/05/18 Past Medical History (Chronic Problems): Chronic Problems (Last Reviewed 02/05/18 @ 02:51 by Dhaval Barclay MD) Abnormal electrocardiogram (Chronic) Secondary pulmonary arterial hypertension (Chronic) RVSP 43 mmhg per echo 09/22/2016 @ [facility] PVCs (premature ventricular contractions) (Chronic) Ascending aorta dilatation (Chronic) Nonrheumatic tricuspid valve regurgitation (Chronic) Nonrheumatic mitral valve regurgitation (Chronic) First degree AV block (Chronic) Paroxysmal atrial fibrillation (Chronic) Surgical History: - - Partial hysterectomy, cholecystectomy, tonsillectomy, right total hip arthroplasty. 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 Denies: Chest Discomfort, Orthopnea, PND, Peripheral Edema, Lightheadedness, Dizziness, Near Syncope, Syncope Respiratory: Denies: Cough, Sputum Production, Hemoptysis Gastrointestinal: Denies: Hematemesis, Hematochezia, Melena Genitourinary: Denies: Dysuria, Hematuria Skin: Denies: Rash Subjectve: Patient laying in bed, no acute distress. Objective: Vital Signs Temp Pulse Resp BP Pulse Ox 97.9 F 65 16 119/77 93 02/05/18 06:00 02/05/18 06:40 02/05/18 06:40 02/05/18 06:00 02/05/18 06:40 Oxygen Flow Rate (L/min) 4 Oxygen Delivery Method Nasal Cannula Weight: 138 lb 7.205 oz Body Mass Index (BMI) 21.7 Intake and Output for Last 24 Hours 02/03/18 02/04/18 02/05/18 23:59 23:59 23:59 Intake Total 170.9 / 170.9 Output Total 400 / 400 Balance -229.1 / -229.1 General: Awake, Alert, Oriented x 3 HEENT: PERRL, EOMI, Sclera Non Icteric Neck: Supple, Good ROM, No Lymph Node Enlargement Lungs: Clear to auscultation Cardiovascular: Irregular Rhythm, Normal S1, Normal S2, No Rubs, No Gallops Murmur Murmur: Grade 2/6, Holosystolic Vascular: No Carotid Bruits, Normal Femoral Pulses, Normal Radial Pulses, Normal Dorsalis Pedal Pulse, Normal Posterior Tibial Pulses Abdomen: Bowel Sounds Present, Soft, Non Tender, No HSM, No Organomegaly Extremities: No Cyanosis, No Clubbing, No edema Neurological: No Focal Motor or Sensory Deficit 02/05/18 03:05: WBC 6.2, RBC 4.45, Hgb 13.1, Hct 39.3, MCV 88.3, MCH 29.4, MCHC 33.3, RDW 13.7, RDW Differential 43.4, Plt Count 203, MPV 10.8 02/05/18 03:05: D-Dimer Quant (PE/DVT) 0.69 H* 02/05/18 03:05: Sodium 140, Potassium 4.1, Chloride 107, Carbon Dioxide 21.0, Anion Gap 12, BUN 25 H, Creatinine 1.00, Est GFR (MDRD) Af Amer 69, Est GFR ( MDRD) Non-Af 57 L, BUN/Creatinine Ratio 25.1 H, Glucose 146 H, Calcium 8.3 L, Total Bilirubin 1.30 H, Triglycerides 38, Cholesterol 209 H, LDL Cholesterol 93 , VLDL Cholesterol 8, HDL Cholesterol 108 02/05/18 03:05: B-Natriuretic Peptide Cancelled 02/05/18 03:05: PT 14.0, INR 1.1, APTT 33.2 02/05/18 03:05: Troponin I < 0.015 02/05/18 06:30: Troponin I < 0.015 Rhythm: EKG: ECHO: Stress Test: Cardiac Cath: PCI: CT Surgery: Holter monitor: EPS: PPM: CXR: Chest CT Scan: Assessment/Plan 1. Atrial fibrillation: The patient has had several episodes of atrial fibrillation and is at high risk for TIA/CVA, and possibly DVT as well. 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 Her heart rate is well controlled at this time on IV amiodarone. In addition she has been started on IV heparin drip for anticoagulation. Would recommend keeping her PTT between 50 and 70. Patient had a noninvasive nuclear stress test at the [facility] on which was negative for inducible ischemia. Her recent echocardiogram showed intact LV function and mild pulmonary hypertension with an RVSP of approximately 43 mmHg. At this point I would recommend lifelong anticoagulation with Eliquis 2.5 mg p.o. twice daily. We will hold off on starting this until the workup for her spiculated lung mass has been completed. Patient has been seen by Dr. Jean-Paul Ramirez in consultation. In addition recommend titrating off her Cardizem drip to maintain heart rate less than 100. She is currently on Coreg would recommend decreasing her Coreg to 3.125 mg p.o. twice daily and titrating up from there. Mg p.o. twice daily. continue IV amiodarone until she is tolerating calcium channel dario therapy. Patient does come with a history of COPD although she is a lifelong non- smoker. This will need to be clarified by pulmonary. 2. It has been over a year since her echocardiogram, would recommend repeating her echocardiogram to monitor her LV function and pulmonary pressures. There was some suggestion the patient may have pulmonary congestion on her chest x- ray and is receiving IV Lasix at this time. She is currently laying down flat. 3. If the patient has a marked change in her echocardiogram from 1 year ago, and have a low threshold for diagnostic coronary angiogram prior to long-term anticoagulation therapy. 4. Discussed with Dr. Ramirez. Thank you very much for the opportunity to participate in the cardiac care of your patient. Consultation time took place between 9 AM and 9:30 AM. Code Visit Inpatient E&M: 73995 Init Hosp L2
--- NOTE | 2018-02-05 10:15 | CASEMGMT ---
Addendum entered by Anderson Medel 02/05/18 15:03: Second attempt to complete RN CM Assessment. Will revisit pt tomorrow. Richelle DOAN RN DANIELITOM Original Note: RN CM Note. Unable to complete RN CM assessment at this time. Richelle DOAN RN ACM
[2018-02-05 12:14] LABS: Anion Gap 11 (5-15); BUN 24 mg/dL (7-18); BUN/Creat Ratio 20.5 RATIO (10-20); Calcium,Total 8.2 mg/dL (8.5-10.1); Chloride 103 mmol/L (98-107); Creatinine, Serum 1.17 mg/dL (0.55-1.02); EST Glomerular Filtration Rate 47 mL/min (>60); Est Glom Filt Rate - Afr Amer 57 mL/min (>60); Estimated Creatinine Clearance 36.67 ml/min; Glucose 86 mg/dL (74-106); Magnesium 1.9 mg/dL (1.6-2.6); Phosphorus 3.9 mg/dL (2.5-4.9); Potassium 3.5 mmol/L (3.5-5.1); Sodium Level 141 mmol/L (136-145)
--- NOTE | 2018-02-05 14:52 | CHAPLAIN ---
patient was sleeping; MANAGER PRODUCT SUPPORT said pt has been too active in bed when awake so preferred that pt be allowed to sleep
[2018-02-05 18:02] LABS: Partial Thromboplast Time 72.2 Seconds (24.1-36.2)
[2018-02-05] MEDS: traZODone 100 MG Tablet PO (22:33)
[2018-02-05] MEDS: Carvedilol 3.125 MG TABLET PO (22:33)
[2018-02-05 23:07] LABS: Partial Thromboplast Time 106.8 Seconds (24.1-36.2)
[2018-02-06] VITALS (16 sets, daily range): BP systolic 77–121; BP diastolic 39–73; PULSE 58–113; RESP 11–25; TEMP 36.1–37.4; O2SAT 94–99
[2018-02-06 05:32] LABS: Partial Thromboplast Time 89.3 Seconds (24.1-36.2)
[2018-02-06 06:22] LABS: Absolute Lymphocyte Count 1.08 X10^3/ul (0.83-4.51); Absolute Neutrophil Count 2.5 X10^3/uL (2.0-7.7); Basophil# 0.03 X10^3/uL; Basophil% 0.7 % (0-1); Eosinophil# 0.13 X10^3/uL; Eosinophils% 3.1 % (0-5); Hemoglobin 12.1 g/dl (12.0-15.0); Lymphocyte # 1.08 X10^3/ul (4.0); Lymphocyte % 25.8 % (19-41); Mean Corp Hgb Conc 32.7 g/gl (32-36); Mean Corpuscular Hgb 29.4 pg (27.0-32.0); Mean Corpuscular Volume 89.8 fL (81-99); Mean Platelet Vol. 11.1 fl (6.2-12.0); Monocyte# 0.43 X10^3/uL; Monocyte% 10.3 % (0-10); Neutrophil # 2.51 X10^3/uL (2.7-7.7); Neutrophil % 60.1 % (47-70); Platelet Count 181 K/mm3 (150-450); RBC Distribution Width CV 13.7 % (11.6-14.6); RBC Distribution Width SD 43.8 fl (35.1-43.9); Red Blood Count 4.12 M/mm3 (4.2-5.4); White Blood Count 4.2 K/mm3 (4.4-11.0)
[2018-02-06 06:23] LABS: POSITIVE COUNT NO; POSITIVE DIFFERENTIAL NO; POSITIVE MORPHOLOGY NO
[2018-02-06 06:41] LABS: ALB/GLOB Ratio 1.1 RATIO (0.9-2.4); AST(SGOT) 39 U/L (15-37); Alanine Aminotransfer ALT/SGPT 47 U/L (13-56); Albumin, Serum 3.3 g/dL (3.2-5.0); Alkaline Phosphatase 66 U/L (45-117); Anion Gap 4 (5-15); BUN 21 mg/dL (7-18); BUN/Creat Ratio 19.3 RATIO (10-20); Calcium,Total 8.2 mg/dL (8.5-10.1); Chloride 106 mmol/L (98-107); Creatinine, Serum 1.09 mg/dL (0.55-1.02); EST Glomerular Filtration Rate 51 mL/min (>60); Est Glom Filt Rate - Afr Amer 62 mL/min (>60); Estimated Creatinine Clearance 37.77 ml/min; Globulin 3.1 g/dL (2.2-4.2); Glucose 87 mg/dL (74-106); Potassium 3.4 mmol/L (3.5-5.1); Protein, Total 6.4 g/dL (6.4-8.2); Sodium Level 142 mmol/L (136-145)
--- NOTE | 2018-02-06 06:58 | PN_ITS ---
Patient Problems: Active and Suspected Problems (Last Reviewed 02/05/18 @ 02:51 by Dhaval Barclay MD) Acute respiratory failure with hypoxia (Acute) New onset of congestive heart failure (Acute) Atrial fibrillation with RVR (Acute) Subjective: Patient did well overnight. Patient has responded to diuretic therapy appropriately and supplemental oxygen has been able to be weaned throughout the evening. Patient with no complaints this morning. Patient does feel subjectively improved compared to previous. Objective: Echocardiogram showed an EF of 35-40% with enlarged right atrium and RVSP of 35. Left pleural effusion was appreciated. - Physical Exam General: Alert, Oriented x3, Cooperative, No apparent distress, Well developed, Well nourished, - - Speaking in full sentences HEENT: Atraumatic, PERRLA, EOMI, Normocephalic, - - No scleral icterus or injection noted. Oral: Moist Mucosa, No Gingival or Mucosal Lesions/ Ulcerations Neck: Supple, No JVD, No Nodes, Trachea Midline Lungs: No rhonchi, No wheeze, No rales, Diminished - Left base, - - Symmetric expansion. Unable to appreciate dullness with percussion Cardiovascular: Normal S1, Normal S2, No murmurs, Irregular Rate, No rub noted, No Gallop Abdomen: Bowel Sounds Present, Soft, Non Tender, Non-Distended Extremities: No clubbing, No cyanosis, No edema, Capillary Refill Less than 3 Seconds Skin: No rashes, No breakdown Musculoskeletal: No Tenderness to Palpation of Joints or Extremities, No Muscle Wasting Lymphatic: No Cervical, Supraclavicular, or Inguinal Adenopathy Neurological: Cranial nerves II-XII grossly intact, Neuro grossly intact, Motor Exam 5/5 strength throughout Psych/Mental Status: Alert and oriented to time, place, person, mood and affect Vital Signs Temp Pulse Resp BP Pulse Ox 36.8 C 97 19 H 97/65 99 02/06/18 02:12 02/06/18 03:27 02/06/18 02:12 02/06/18 02:12 02/06/18 02:12 Oxygen Flow Rate (L/min) 4 Oxygen Delivery Method Nasal Cannula Weight: 59.1 kg Body Mass Index (BMI) 21.7 Intake and Output for Last 24 Hours 02/04/18 02/05/18 02/06/18 23:59 23:59 23:59 Intake Total 868.9 / 868.9 94 / 94 Output Total 3300 / 3300 800 / 800 Balance -2431.1 / -2431.1 -706 / -706 Laboratory Tests Past 24 Hrs 02/05/18 02/05/18 02/05/18 06:30 11:10 11:50 WBC RBC Hgb Hct MCV MCH MCHC RDW RDW Differential Plt Count MPV Immature Gran % (Auto) Neut % (Auto) Lymph % (Auto) Howard % (Auto) Eos % (Auto) Baso % (Auto) Absolute Neuts (auto) Absolute Lymphs (auto) Total Counted APTT 194.0 H* Sodium 141 Potassium 3.5 Chloride 103 Carbon Dioxide 27.0 Anion Gap 11 BUN 24 H Creatinine 1.17 H Estim Creat Clear Calc 36.67 Est GFR (MDRD) Af Amer 57 L Est GFR (MDRD) Non-Af 47 L BUN/Creatinine Ratio 20.5 H Glucose 86 Calcium 8.2 L Phosphorus 3.9 Magnesium 1.9 Total Bilirubin AST ALT Alkaline Phosphatase Troponin I < 0.015 Total Protein Albumin Globulin Albumin/Globulin Ratio 02/05/18 02/05/18 02/06/18 17:15 22:30 05:00 WBC RBC Hgb Hct MCV MCH MCHC RDW RDW Differential Plt Count MPV Immature Gran % (Auto) Neut % (Auto) Lymph % (Auto) Howard % (Auto) Eos % (Auto) Baso % (Auto) Absolute Neuts (auto) Absolute Lymphs (auto) Total Counted APTT 72.2 H 106.8 H* 89.3 H Sodium Potassium Chloride Carbon Dioxide Anion Gap BUN Creatinine Estim Creat Clear Calc Est GFR (MDRD) Af Amer Est GFR (MDRD) Non-Af BUN/Creatinine Ratio Glucose Calcium Phosphorus Magnesium Total Bilirubin AST ALT Alkaline Phosphatase Troponin I Total Protein Albumin Globulin Albumin/Globulin Ratio 02/06/18 02/06/18 05:45 05:45 WBC 4.2 L RBC 4.12 L Hgb 12.1 Hct 37.0 MCV 89.8 MCH 29.4 MCHC 32.7 RDW 13.7 RDW Differential 43.8 Plt Count 181 MPV 11.1 Immature Gran % (Auto) 0.000 Neut % (Auto) 60.1 Lymph % (Auto) 25.8 Howard % (Auto) 10.3 H Eos % (Auto) 3.1 Baso % (Auto) 0.7 Absolute Neuts (auto) 2.5 Absolute Lymphs (auto) 1.08 Total Counted Not Reportable APTT Sodium 142 Potassium 3.4 L Chloride 106 Carbon Dioxide 32.0 Anion Gap 4 L BUN 21 H Creatinine 1.09 H Estim Creat Clear Calc 37.77 Est GFR (MDRD) Af Amer 62 Est GFR (MDRD) Non-Af 51 L BUN/Creatinine Ratio 19.3 Glucose 87 Calcium 8.2 L Phosphorus Magnesium Total Bilirubin 1.40 H AST 39 H ALT 47 Alkaline Phosphatase 66 Troponin I Total Protein 6.4 Albumin 3.3 Globulin 3.1 Albumin/Globulin Ratio 1.1 Medical Necessity - Tobacco Use Smoking Status: Never smoker Assessment/Plan All Active Problems (Last Reviewed 02/05/18 @ 02:51 by Dhaval Barclay MD) Acute respiratory failure with hypoxia (Acute) New onset of congestive heart failure (Acute) Atrial fibrillation with RVR (Acute) RECOMMENDATIONS: 1. Potassium supplementation 2. Diuresis as tolerated 3. Wean oxygen as tolerated, walking oximetry prior to discharge 4. Repeat CT scan in 1-2 months 5. Incentive spirometer 6. No antibiotics or steroids are indicated from my perspective IMPRESSIONS: 1. Lung nodule/acute hypoxic respiratory insufficiency secondary to CHF with pleural effusions Unclear etiology at this time. Patient is significantly fluid overloaded at this time and this may represent pulmonary edema versus possible malignancy. Patient does carry a diagnosis of COPD, but decompensated congestive heart failure can appear as COPD on pulmonary function testing. Patient does not report any smoking history. Would not recommend CT-guided biopsy at this time. Patient appears to be responding well to diuretic therapy and is almost off of supplemental oxygen. Do not believe antibiotics or steroids are indicated at this time. Patient will need a walking oximetry prior to discharge. Would defer to cardiology on possible transition to 10A inhibitor in place of heparin drip. 2. Acute systolic congestive heart failure secondary to A. fib with RVR Cardiology is currently consulted. Patient's rate is better controlled at this time. Patient has been weaned off of diltiazem. Echocardiogram has been completed and shows moderate global hypokinesis of the left ventricle with an EF of 35%. Patient does have an enlarged right atrium and elevated pulmonary artery pressures. Patient reportedly has refused anticoagulation in the past. Patient sees Dr. Rodriguez as an outpatient. Await cardiology recommendations. Patient is currently on anticoagulation. 3. Fibromyalgia/reported asthma/secondary pulmonary hypertension/advanced age/anxiety Complicates care, management, recovery and prognosis. Keep saturations greater than 90% to optimize pulmonary pressures. Okay to continue with baseline anxiety medications. Code Visit Inpatient E&M: 98566 [facility] Hosp L3
--- NOTE | 2018-02-06 07:14 | PCM.PN.HOSP ---
Patient Problems: Active and Suspected Problems (Last Reviewed 02/05/18 @ 02:51 by Dhaval Barclay MD) Acute respiratory failure with hypoxia (Acute) New onset of congestive heart failure (Acute) Atrial fibrillation with RVR (Acute) Subjective: Patient was seen and examined. She feels much better. Able to sleep flat. Oxygen requirements has come down. Saturating almost 99% on 2 L of oxygen. Denies any chest pain, dizziness or worsening shortness of breath. Objective: Physical exam: General: Alert, Oriented x3, Cooperative, No apparent distress HEENT: Atraumatic, PERRLA, EOMI, Normocephalic Oral: Moist Mucosa Neck: Supple Lungs: Diminished, Rales - Decreased air entry in the right lower lung zones with crackles Cardiovascular: Regular rate, Regular Rhythm, Normal S1, Normal S2, No murmurs Abdomen: Bowel Sounds Present, Soft, Non Tender, Non-Distended, No Hepato-splenomegaly Extremities: Edema - Trace bilateral edema Skin: No rashes, No breakdown Musculoskeletal: No Tenderness to Palpation of Joints or Extremities Lymphatic: No Cervical, Supraclavicular, or Inguinal Adenopathy Neurological: Cranial nerves II-XII grossly intact, Neuro grossly intact Psych/Mental Status: Normal Affect, Appropriate Vitals/I&O's: Vital Signs Temp Pulse Resp BP Pulse Ox 98.2 F 97 19 H 97/65 99 02/06/18 02:12 02/06/18 03:27 02/06/18 02:12 02/06/18 02:12 02/06/18 02:12 Oxygen Flow Rate (L/min) 4 Oxygen Delivery Method Nasal Cannula Weight: 59.1 kg Body Mass Index (BMI) 21.7 Intake and Output for Last 24 Hours 02/04/18 02/05/18 02/06/18 23:59 23:59 23:59 Intake Total 868.9 / 868.9 94 / 94 Output Total 3300 / 3300 800 / 800 Balance -2431.1 / -2431.1 -706 / -706 Laboratory Results 02/05/18 11:10: APTT 194.0 H* 02/05/18 11:50: Sodium 141, Potassium 3.5, Chloride 103, Carbon Dioxide 27.0, Anion Gap 11, BUN 24 H, Creatinine 1.17 H, Estim Creat Clear Calc 36.67, Est GFR (MDRD) Af Amer 57 L, Est GFR (MDRD) Non-Af 47 L, BUN/Creatinine Ratio 20.5 H, Glucose 86, Calcium 8.2 L, Phosphorus 3.9, Magnesium 1.9 02/05/18 17:15: APTT 72.2 H 02/05/18 22:30: APTT 106.8 H* 02/06/18 05:00: APTT 89.3 H 02/06/18 05:45: WBC 4.2 L, RBC 4.12 L, Hgb 12.1, Hct 37.0, MCV 89.8, MCH 29.4, MCHC 32.7, RDW 13.7, RDW Differential 43.8, Plt Count 181, MPV 11.1, Immature Gran % (Auto) 0.000, Neut % (Auto) 60.1, Lymph % (Auto) 25.8, Carbon % (Auto) 10.3 H, Eos % (Auto) 3.1, Baso % (Auto) 0.7, Absolute Neuts (auto) 2.5, Absolute Lymphs (auto) 1.08, Total Counted Not Reportable 02/06/18 05:45: Sodium 142, Potassium 3.4 L, Chloride 106, Carbon Dioxide 32.0, Anion Gap 4 L, BUN 21 H, Creatinine 1.09 H, Estim Creat Clear Calc 37.77, Est GFR (MDRD) Af Amer 62, Est GFR (MDRD) Non-Af 51 L, BUN/Creatinine Ratio 19.3, Glucose 87, Calcium 8.2 L, Total Bilirubin 1.40 H, AST 39 H, ALT 47, Alkaline Phosphatase 66, Total Protein 6.4, Albumin 3.3, Globulin 3.1, Albumin/Globulin Ratio 1.1 Current Medications Aspirin (Ecotrin) 81 mg PO DAILYCM PENDING SALE TO [facility] Last Admin: 02/05/18 08:57 Dose: 81 mg Budesonide (Pulmicort Aerosol) 0.5 mg INHALATION Q12H.RT PENDING SALE TO [facility] Last Admin: 02/05/18 19:05 Dose: 0.5 mg Calcium/Vitamin D (Os-Deion 500mg + D) 2 tablet PO DAILY PENDING SALE TO [facility] Last Admin: 02/05/18 08:57 Dose: 2 tablet Carvedilol (Coreg) 3.125 mg PO BID PENDING SALE TO [facility] Last Admin: 02/05/18 22:33 Dose: 3.125 mg Clonazepam (Klonopin) 1 mg PO DAILY PRN PRN PRN Reason: ANXIETY Last Admin: 02/05/18 05:21 Dose: 1 mg Ergocalciferol (Vitamin D) 50,000 unit PO Q7D PENDING SALE TO [facility] Furosemide (Lasix) 40 mg IV BID PENDING SALE TO [facility] Last Admin: 02/05/18 22:33 Dose: 40 mg Heparin Sodium (Porcine) (Heparin Na) 0 unit IV UD PRN PRN Reason: Protocol Hydrocortisone Acetate (Anusol Hc) 25 mg RECTAL BID PRN PRN PRN Reason: PAIN Heparin Sodium/Dextrose () 25,000 units in 250 mls @ 10 mls/hr IV .Q25H ASHER; As Directed PRN Reason: Protocol Last Admin: 02/06/18 05:16 Dose: Not Given Lisinopril (Zestril) 5 mg PO DAILY PENDING SALE TO [facility] Last Admin: 02/05/18 08:58 Dose: 5 mg Lorazepam (Ativan) 0.5 mg IV Q4H PRN PRN PRN Reason: ANXIETY Last Admin: 02/05/18 22:34 Dose: 0.5 mg Montelukast Sodium (Singulair) 10 mg PO DAILY PENDING SALE TO [facility] Last Admin: 02/05/18 08:58 Dose: 10 mg Paroxetine HCl (Paxil) 10 mg PO DAILY PENDING SALE TO [facility] Last Admin: 02/05/18 08:58 Dose: 10 mg Potassium Chloride (K-Dur) 20 meq PO BIDCM PENDING SALE TO [facility] Stop: 02/06/18 17:01 Sodium Chloride () 5 - 30 ml IV UD PRN PRN Reason: SALINE FLUSH Last Admin: 02/05/18 22:33 Dose: 20 ml Trazodone HCl (Desyrel) 100 mg PO QHS PENDING SALE TO [facility] Last Admin: 02/05/18 22:33 Dose: 100 mg Medical Necessity - Tobacco Use Smoking Status: Never smoker Assessment/Plan All Active Problems (Last Reviewed 02/05/18 @ 02:51 by Dhaval Barclay MD) Acute respiratory failure with hypoxia (Acute) New onset of congestive heart failure (Acute) Atrial fibrillation with RVR (Acute) 82-year-old with history of paroxysmal atrial fibrillation about a year ago, not on anticoagulation, anxiety, asthma comes in with progressive shortness of breath ongoing for 1 week 1. Acute hypoxic respiratory insufficiency secondary to acute CHF/bilateral pleural effusions/atelectasis/A. fib with RVR, improving, will continue to wean off for SpO2>94% 2. Acute CHF, newly diagnosed, acute systolic, EF of 35-40% with pulmonary hypertension, continue on Lasix twice daily, strict I's and O's, daily weights 3. Bilateral pleural effusion, likely secondary to acute CHF, improving, chest x-ray this am reports left lower lobe pneumonia, doubt pneumonia 4. Consolidation seen on both chest x-ray and CT of the chest concerning for possible right lower lobe pneumonia, no clinical evidence of pneumonia, chest x-ray this morning reports left lower lobe pneumonia, doubt pneumonia, likely atelectasis, will not treat with antibiotics 5. A. fib with RVR, rate controlled now, off Cardizem, on Coreg, heparin drip, will discuss anticoagulation with cardiology 6. Left lung nodule, pulmo consulted, needs to be followed up in the outpatient, will discuss the timing of left lung nodule biopsy with pulmonology. 7. COPD/asthma, no signs of exacerbation, will have as needed breathing treatment 8. Anxiety, on ativan prn, trazodone, Paxil , will continue same for now 9. Hypokalemia, replaced, recheck in am 10. DVT PPx- On heparin drip Code Visit Inpatient E&M: 33967 [facility] Hosp L2
[2018-02-06] MEDS: Budesonide Respules 0.5 MG/2 ML AMPUL.NEB. INHALATION ×2 (07:16→19:46)
--- NOTE | 2018-02-06 08:22 | RAD_ITS ---
STUDY: X-RAY CHEST REASON FOR EXAM: Female, 82 years old. Shortness of breath TECHNIQUE: Single AP portable view of the chest. COMPARISON: 02/05/2018 FINDINGS: There is hyperinflation of the lungs consistent with chronic obstructive lung disease (COPD). Right lung is clear. Left lower lobe consolidation and small effusion, otherwise the left lung is clear. Normal size heart. Normal mediastinum and valarie. Normal visualized pulmonary arteries. Normal visualized aortic arch and descending thoracic aorta. There are diffuse degenerative changes of the visualized thoracic spine. There is degenerative osteoarthritis of the bilateral shoulders. There is no demonstrated abnormality of the visualized soft tissue structures of the upper abdomen. RAD/Chest PA and Lateral IMPRESSION: Left lower lobe consolidation and effusion. COPD. Electronically Signed: Niko Torres DO at 10:21 EDT Tel , Service support ,
[2018-02-06] MEDS: Aspirin E.C. 81 MG Tablet PO (09:28)
[2018-02-06] MEDS: Carvedilol 3.125 MG TABLET PO ×2 (09:28→21:50)
[2018-02-06] MEDS: Furosemide 40 MG/4 ML Vial IV ×2 (09:29→21:50)
[2018-02-06] MEDS: Calcium Carb/Vitamin D 1 TABLET Tablet 2 TABLET PO (09:30)
[2018-02-06] MEDS: Lisinopril 5 MG Tablet PO (09:31)
[2018-02-06] MEDS: PARoxetine 10 MG Tablet PO (09:31)
[2018-02-06] MEDS: Montelukast 10 MG Tablet PO (09:31)
[2018-02-06] MEDS: 0.9% NaCl Peripheral Flush Adult/Peds IV ×2 (09:34→21:50)
--- NOTE | 2018-02-06 12:15 | PCM.PN.CARD ---
Subjectve: Patient continues to improve clinically. He would lay down flat without difficulty and slept well. Telemetry showed atrial fibrillation with controlled ventricular response. Objective: Vital Signs Temp Pulse Resp BP Pulse Ox 98.4 F 109 H 18 104/73 96 02/06/18 09:44 02/06/18 11:56 02/06/18 09:44 02/06/18 09:44 02/06/18 09:44 Oxygen Flow Rate (L/min) 2 Oxygen Delivery Method Nasal Cannula Weight: 130 lb 4.691 oz Body Mass Index (BMI) 21.7 Intake and Output for Last 24 Hours 02/04/18 02/05/18 02/06/18 23:59 23:59 23:59 Intake Total 868.9 / 868.9 432 / 432 Output Total 3300 / 3300 1700 / 1700 Balance -2431.1 / -2431.1 -1268 / -1268 General: Awake, Alert, Oriented x 3 HEENT: PERRL, EOMI, Sclera Non Icteric Neck: Supple, Good ROM, No Lymph Node Enlargement Lungs: Clear to auscultation Cardiovascular: Irregular Rhythm, Normal S1, Normal S2, No Murmurs, No Rubs, No Gallops Murmur Murmur: Grade 2/6, Holosystolic Vascular: No Carotid Bruits, Normal Femoral Pulses, Normal Radial Pulses, Normal Dorsalis Pedal Pulse, Normal Posterior Tibial Pulses Abdomen: Bowel Sounds Present, Soft, Non Tender, No HSM, No Organomegaly Extremities: No Cyanosis, No Clubbing, No edema Neurological: No Focal Motor or Sensory Deficit 02/05/18 17:15: APTT 72.2 H 02/05/18 22:30: APTT 106.8 H* 02/06/18 05:00: APTT 89.3 H 02/06/18 05:45: WBC 4.2 L, RBC 4.12 L, Hgb 12.1, Hct 37.0, MCV 89.8, MCH 29.4, MCHC 32.7, RDW 13.7, RDW Differential 43.8, Plt Count 181, MPV 11.1, Immature Gran % (Auto) 0.000, Neut % (Auto) 60.1, Lymph % (Auto) 25.8, Holmes % (Auto) 10.3 H, Eos % (Auto) 3.1, Baso % (Auto) 0.7, Absolute Neuts (auto) 2.5, Total Counted Not Reportable 02/06/18 05:45: Sodium 142, Potassium 3.4 L, Chloride 106, Carbon Dioxide 32.0, Anion Gap 4 L, BUN 21 H, Creatinine 1.09 H, Est GFR (MDRD) Af Amer 62, Est GFR (MDRD) Non-Af 51 L, BUN/Creatinine Ratio 19.3, Glucose 87, Calcium 8.2 L, Total Bilirubin 1.40 H Rhythm: EKG: ECHO: Stress Test: Cardiac Cath: PCI: CT Surgery: Holter monitor: EPS: PPM: CXR: Chest CT Scan: Medical Necessity - Tobacco Use Smoking Status: Never smoker Assessment/Plan 1. Atrial fibrillation: The patient has had several episodes of atrial fibrillation and is at high risk for TIA/CVA, and possibly DVT as well. 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 Her heart rate is well controlled at this time on IV amiodarone. In addition she has been started on IV heparin drip for anticoagulation. Would recommend keeping her PTT between 50 and 70. Patient had a noninvasive nuclear stress test at the [facility] on 10/05/16 which was negative for inducible ischemia. Her recent echocardiogram showed intact LV function and mild pulmonary hypertension with an RVSP of approximately 43 mmHg. Her echocardiogram however yesterday showed moderate global LV dysfunction with an EF around 35-40%, 2+ mitral regurgitation, and an RVSP of at least 35 mmHg. This appears to be out of alignment with her LV function on her last echocardiogram and her clinical presentation of congestive heart failure with left pleural effusion. At this point I would recommend lifelong anticoagulation with Eliquis 2.5 mg p.o. twice daily once her cardiopulmonary workup has been completed.. We will hold off on starting this until the workup for her spiculated lung mass has been completed, and would recommend a left and right heart catheterization tomorrow morning to determine if she has any coronary disease that may have been missed on her stress test as well as to more concretely define her pulmonary pressures.. Patient has been seen by Dr. Jean-Paul Ramirez in consultation. She is currently on Coreg would recommend decreasing her Coreg to 3.125 mg p.o. twice daily and titrating up from there. Mg p.o. twice daily. continue IV amiodarone until she is tolerating calcium channel dario therapy. Patient does come with a history of COPD although she is a lifelong non-smoker. This will need to be clarified by pulmonary. 2. It has been over a year since her echocardiogram, would recommend repeating her echocardiogram to monitor her LV function and pulmonary pressures. There was some suggestion the patient may have pulmonary congestion on her chest x-ray and is receiving IV Lasix at this time. She is currently laying down flat. 3. Thank you very much for the opportunity to participate in the cardiac care of your patient. Catheterization to take place tomorrow morning. Code Visit Inpatient E&M: [id number] Subs Hosp L2
--- NOTE | 2018-02-06 12:21 | PN.CARD_ITS ---
Subjectve: Patient continues to improve clinically. He would lay down flat without difficulty and slept well. Telemetry showed atrial fibrillation with controlled ventricular response. Objective: Vital Signs Temp Pulse Resp BP Pulse Ox 98.4 F 109 H 18 104/73 96 02/06/18 09:44 02/06/18 11:56 02/06/18 09:44 02/06/18 09:44 02/06/18 09:44 Oxygen Flow Rate (L/min) 2 Oxygen Delivery Method Nasal Cannula Weight: 130 lb 4.691 oz Body Mass Index (BMI) 21.7 Intake and Output for Last 24 Hours 02/04/18 02/05/18 02/06/18 23:59 23:59 23:59 Intake Total 868.9 / 868.9 432 / 432 Output Total 3300 / 3300 1700 / 1700 Balance -2431.1 / -2431.1 -1268 / -1268 General: Awake, Alert, Oriented x 3 HEENT: PERRL, EOMI, Sclera Non Icteric Neck: Supple, Good ROM, No Lymph Node Enlargement Lungs: Clear to auscultation Cardiovascular: Irregular Rhythm, Normal S1, Normal S2, No Murmurs, No Rubs, No Gallops Murmur Murmur: Grade 2/6, Holosystolic Vascular: No Carotid Bruits, Normal Femoral Pulses, Normal Radial Pulses, Normal Dorsalis Pedal Pulse, Normal Posterior Tibial Pulses Abdomen: Bowel Sounds Present, Soft, Non Tender, No HSM, No Organomegaly Extremities: No Cyanosis, No Clubbing, No edema Neurological: No Focal Motor or Sensory Deficit 02/05/18 17:15: APTT 72.2 H 02/05/18 22:30: APTT 106.8 H* 02/06/18 05:00: APTT 89.3 H 02/06/18 05:45: WBC 4.2 L, RBC 4.12 L, Hgb 12.1, Hct 37.0, MCV 89.8, MCH 29.4, MCHC 32.7, RDW 13.7, RDW Differential 43.8, Plt Count 181, MPV 11.1, Immature Gran % (Auto) 0.000, Neut % (Auto) 60.1, Lymph % (Auto) 25.8, Lares % (Auto) 10.3 H, Eos % (Auto) 3.1, Baso % (Auto) 0.7, Absolute Neuts (auto) 2.5, Total Counted Not Reportable 02/06/18 05:45: Sodium 142, Potassium 3.4 L, Chloride 106, Carbon Dioxide 32.0, Anion Gap 4 L, BUN 21 H, Creatinine 1.09 H, Est GFR (MDRD) Af Amer 62, Est GFR ( MDRD) Non-Af 51 L, BUN/Creatinine Ratio 19.3, Glucose 87, Calcium 8.2 L, Total Bilirubin 1.40 H Rhythm: EKG: ECHO: Stress Test: Cardiac Cath: PCI: CT Surgery: Holter monitor: EPS: PPM: CXR: Chest CT Scan: Medical Necessity - Tobacco Use Smoking Status: Never smoker Assessment/Plan 1. Atrial fibrillation: The patient has had several episodes of atrial fibrillation and is at high risk for TIA/CVA, and possibly DVT as well. 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 Her heart rate is well controlled at this time on IV amiodarone. In addition she has been started on IV heparin drip for anticoagulation. Would recommend keeping her PTT between 50 and 70. Patient had a noninvasive nuclear stress test at the [facility] on which was negative for inducible ischemia. Her recent echocardiogram showed intact LV function and mild pulmonary hypertension with an RVSP of approximately 43 mmHg. Her echocardiogram however yesterday showed moderate global LV dysfunction with an EF around 35-40%, 2+ mitral regurgitation, and an RVSP of at least 35 mmHg. This appears to be out of alignment with her LV function on her last echocardiogram and her clinical presentation of congestive heart failure with left pleural effusion. At this point I would recommend lifelong anticoagulation with Eliquis 2.5 mg p.o. twice daily once her cardiopulmonary workup has been completed.. We will hold off on starting this until the workup for her spiculated lung mass has been completed, and would recommend a left and right heart catheterization tomorrow morning to determine if she has any coronary disease that may have been missed on her stress test as well as to more concretely define her pulmonary pressures.. Patient has been seen by Dr. Jean-Paul Ramirez in consultation. She is currently on Coreg would recommend decreasing her Coreg to 3.125 mg p.o. twice daily and titrating up from there. Mg p.o. twice daily. continue IV amiodarone until she is tolerating calcium channel dario therapy. Patient does come with a history of COPD although she is a lifelong non- smoker. This will need to be clarified by pulmonary. 2. It has been over a year since her echocardiogram, would recommend repeating her echocardiogram to monitor her LV function and pulmonary pressures. There was some suggestion the patient may have pulmonary congestion on her chest x- ray and is receiving IV Lasix at this time. She is currently laying down flat. 3. Thank you very much for the opportunity to participate in the cardiac care of your patient. Catheterization to take place tomorrow morning. Code Visit Inpatient E&M: [id number] Subs Hosp L2
[2018-02-06 12:31] LABS: Partial Thromboplast Time 34.2 Seconds (24.1-36.2)
--- NOTE | 2018-02-06 12:57 | CHAPLAIN ---
Type of Pastoral Visit _x__ Initial Visit ___ Follow-up Visit ___ On-call Visit ___ General Patient Visit ___ Spiritual Assessment ___ Family Conference ___ Bereavement ___ Rapid Response ___ Code Blue ___ Other (describe below) Pastoral Care Referral From _x__ Patient ___ Family ___ Nurse ___ Physician ___ Deicer Repairer Pneumatic ___ Vacation Sales Advisor ___ Other (describe below) Sacrament/Intervention _x__ Active listening ___ Anointing ___ Samaritan ___ Bereavement ___ Communion ___ Melony exploration ___ _x__ Life review _x__ Prayer ___ Reconciliation ___ Sacrament of Sick _x__ Supportive presence ___ Wedding ___ Other (describe below) Pastoral Comments
[2018-02-06] MEDS: Heparin Injection (Vial) 5,000 UNIT/ML VIAL IV ×2 (13:22→21:50)
[2018-02-06] MEDS: Clopidogrel Bisulfate 300 MG Tablet PO (13:29)
--- NOTE | 2018-02-06 14:17 | NURSING ---
dr neal notified bp 87/50 asympatomic will monitor for a couple hours then transfer to pcu
--- NOTE | 2018-02-06 14:41 | CASEMGMT ---
Face to Face with patient for initial transition planning/care coordination assessment. RN ALVERTO introduced self and role at [facility], pt voices understanding and consents to assessment at this time. Pt is lying in bed in no distress at this time. Pt is A/O x4 at this time and answers all questions appropriately at this time. Care providers, pharmacy, and demographics verified. See attached link. Pt voices no further concerns/needs at this time. Advised pt to ask for CM if any further questions/concerns/needs arise, voices understanding. CM to follow for any further discharge planning/needs. PLAN: [place]
--- NOTE | 2018-02-06 15:08 | CASEMGMT ---
According to [employer] website, the following are in-network tertiary facilities: [facility], [place], [facility], [facility], [facility], and . Albin FAULKNER CM
[2018-02-06 21:19] LABS: Partial Thromboplast Time 43.8 Seconds (24.1-36.2)
[2018-02-06] MEDS: traZODone 100 MG Tablet PO (21:50)
[2018-02-06] MEDS: clonazePAM 1 MG Tablet PO (21:50)
[2018-02-06] MEDS: HEPARIN/D5w 25,000 UNITS 25,000 UNITS/250 ML IV.SOLN. 10 UNITS IV (23:57)
[2018-02-07] VITALS (21 sets, daily range): BP systolic 89–138; BP diastolic 47–99; PULSE 68–115; RESP 16–18; TEMP 36.4–37.6; O2SAT 94–98; BMI 20.9
[2018-02-07 03:58] LABS: Partial Thromboplast Time 67.6 Seconds (24.1-36.2)
[2018-02-07 04:34] LABS: Absolute Lymphocyte Count 1.52 X10^3/ul (0.83-4.51); Basophil# 0.03 X10^3/uL; Basophil% 0.7 % (0-1); Eosinophil# 0.12 X10^3/uL; Eosinophils% 2.9 % (0-5); Hematocrit 40.2 % (37-47); Hemoglobin 13.4 g/dl (12.0-15.0); Lymphocyte # 1.52 X10^3/ul (4.0); Lymphocyte % 36.8 % (19-41); Mean Corp Hgb Conc 33.3 g/gl (32-36); Mean Corpuscular Hgb 29.3 pg (27.0-32.0); Mean Corpuscular Volume 87.8 fL (81-99); Mean Platelet Vol. 11.2 fl (6.2-12.0); Monocyte% 12.1 % (0-10); Neutrophil # 1.96 X10^3/uL (2.7-7.7); Neutrophil % 47.5 % (47-70); Platelet Count 199 K/mm3 (150-450); RBC Distribution Width CV 13.6 % (11.6-14.6); Red Blood Count 4.58 M/mm3 (4.2-5.4); White Blood Count 4.1 K/mm3 (4.4-11.0)
[2018-02-07 04:40] LABS: POSITIVE COUNT NO; POSITIVE DIFFERENTIAL NO; POSITIVE MORPHOLOGY NO
[2018-02-07 04:44] LABS: Anion Gap 10 (5-15); BUN 33 mg/dL (7-18); BUN/Creat Ratio 24.8 RATIO (10-20); Calcium,Total 8.4 mg/dL (8.5-10.1); Chloride 105 mmol/L (98-107); Creatinine, Serum 1.33 mg/dL (0.55-1.02); EST Glomerular Filtration Rate 41 mL/min (>60); Est Glom Filt Rate - Afr Amer 49 mL/min (>60); Estimated Creatinine Clearance 30.95 ml/min; Glucose 86 mg/dL (74-106); Potassium 3.5 mmol/L (3.5-5.1); Sodium Level 142 mmol/L (136-145)
--- NOTE | 2018-02-07 05:55 | EKG12_ITS ---
Test Reason : AM EKG Blood Pressure : / mmHG Vent. Rate : 097 BPM Atrial Rate : 092 BPM P-R Int : 000 ms QRS Dur : 094 ms QT Int : 414 ms P-R-T Axes : 000 -30 057 degrees QTc Int : 525 ms Atrial fibrillation Left axis deviation Prolonged QT Abnormal ECG Confirmed by DAVIDA REYES, RUTHANN ([id number]), newspaper editor managing ROWDY العراقي ([id number]) on 02/09/2018 1:50:15 PM Referred By: SEBASTIAN Confirmed By:RUTHANN HIGUERA MD
[2018-02-07] MEDS: Budesonide Respules 0.5 MG/2 ML AMPUL.NEB. INHALATION ×2 (06:50→22:02)
--- NOTE | 2018-02-07 08:00 | NURSING ---
Called report to lab instructor RN
[2018-02-07] MEDS: DiphenhydrAMINE 25 MG Capsule 50 MG PO (08:12)
[2018-02-07] MEDS: Carvedilol 3.125 MG TABLET PO ×2 (08:12→22:02)
[2018-02-07] MEDS: Aspirin E.C. 81 MG Tablet PO (08:12)
[2018-02-07] MEDS: Clopidogrel Bisulfate 75 MG Tablet PO (08:12)
[2018-02-07 09:35] LABS: Blood Gas Specimen Type VEN; VBG BASE EXCESS 2 mmol/L (-1.0-3.5); VBG Bicarbonate 26 mmol/L (22-26); VBG Oxygen Content 27 mmol/L (23-33); VBG PO2 28 mmHg (25-40); VBG SO2 58 % (50-70); VBG pCO2 36.2 mmHg (41-51); VBG pH 7.47 (7.32-7.42)
[2018-02-07 09:35] LABS: Blood Gas Specimen Type VEN; VBG BASE EXCESS 3 mmol/L (-1.0-3.5); VBG Bicarbonate 27 mmol/L (22-26); VBG Oxygen Content 28 mmol/L (23-33); VBG PO2 27 mmHg (25-40); VBG SO2 55 % (50-70); VBG pCO2 37.1 mmHg (41-51); VBG pH 7.46 (7.32-7.42)
[2018-02-07 09:35] LABS: Base Excess 1 mmol/L (-2 to +2); Bicarbonate 24.5 mmol/L (22-26); Blood Gas Specimen Type ART; PO2 61 mmHG (75-100); SO2 92 % (95-99); Total Carbon Dioxide 26 mmol/L; pCO2 34.7 mmHg (35-45); pH 7.46 (7.35-7.45)
--- NOTE | 2018-02-07 09:38 | CL.D_ITS ---
Patient Name: KAMLESH COLE Study Date: 02/07/2018 Performing: David Arzate MD Ht: 66.92 inches 170 cm : 1935 Wt: 130.07 lbs 59 kg Age: 82 Gender: female BSA: 1.68 PROCEDURE(S) PERFORMED [id number]/LHC/COR/LV CLINICAL PROFILE AND INDICATIONS Indications: Cardiac Arrythmia Heart Failure: NYHA Class: 3, Newly Diagnosed: Yes, Heart Failure Type: Systolic Stress/Imaging Stress Test w/SPECT MPI: Yes Result: NegativeStress Test with SPECT MPI: Negative Angina Classification Anginal Classification w/in 2 Weeks: No symptoms CAD Presentations: Other: CHF, LV dysfunction Comorbidities/Risk Factors: Hypertension CONCLUSIONS Normal coronary arteries Global LV systolic dysfunction- Moderate Cardiac output - Reduced Cardiomyopathy: Congestive Right heart pressures - Normal Mitral Valve Insufficiency Severe RECOMMENDATIONS LEA to better eval MR for possible MV repair. Start amiodarone for HR control and eventual DCCV in 4 weeks. Start low dose elquis 2.5mg bid in 3 d ays. F/u with Dr Rodriguez. DESCRIPTION OF PROCEDURE The patient arrived to the procedure lab. The risks and benefits of the procedure as well as a full d escription of our services here and current unavailability of surgical backup were fully explained to the patient and/or their significant other prior to the catheterization. The Timeout was completed, verifying the correct patient and procedure. The patient's procedural site was prepped and draped in the usual fashion. Local anesthetic was given subcutaneously to right groin region with Lidocaine 2%. Using a modified Seldinger technique, arterial access was obtained via the right femoral artery, a 4 Fr sheath was inserted Venous access was obtained via the right femoral vein, a 7Fr sheath was insert ed. A 7Fr thermal dilution catheter was inserted and right heart pressures were recorded, it was then advanced to PA position for cardiac outputs. Thermal dilution cardiac outputs were then recorded. O2 saturations were then obtained. The Thermal dilution catheter was then removed. Left Ventriculograph y was performed in ALEXANDER projection using a 4 Fr. Pigtail catheter. LV to AO pullback pressures were th en recorded. Left Coronary Artery selective angiography was performed in multiple views using a 4 Fr. JL5 catheter. Right Coronary Artery selective angiography was then performed in multiple views using a 4 Fr. 3DRC catheter.The arterial sheath was pulled and manual compression applied until hemostasis is achieved.. The venous sheath was then pulled and manual compression applied until hemostasis achi eved CORONARY ANGIOGRAPHY DOMINANCE: Right Dominant LEFT HEART ASSESSMENT Left Ventricular Ejection Fraction: by LV Gram 45 % Global Hypokinesis - Moderate Depressed Left Ventricular systolic function RIGHT HEART ASSESSMENT Thermal CO: 2.67 Thermal CI: 1.59 Gini CO: 3.5 Gini CI: 2.08 PW: /9 6 PA: / 12 RV: 18/-2 0 RA: /3 0 PVR: 180 Right Heart pressures - normal LEFT MAIN: Angiographically normal LEFT ANTERIOR DECENDING ARTERY: Angiographically normal CIRCUMFLEX ARTERY: Angiographically normal RIGHT CORONARY ARTERY: Angiographically normal VALVE FINDINGS: Mitral Valve Insufficiency - Grade 4 COMPLICATIONS No Complications PROCEDURE MEDICATIONS Fentanyl 25 mcg IV SUMMARY OF HEMODYNAMIC DATA Time AIR REST ECG 08:37:09 RA /3 (0) 08:55:16 RV 18/-2, 0 08:55:37 PA 22/6 (12) PA 09:00:26 PW /9 (6) PV 09:00:42 LV 130/-16, -4 09:05:18 LV 134/-17, 2 09:05:25 LV 131/-14, 4 09:05:37 PW /20 (12) 09:05:37 LV 131/-18, -1 09:05:46 PW /8 (7) 09:05:46 LV 131/-14, -1 09:06:22 RV 25/-2, 0 09:06:22 LV 131/-8, 10 09:07:48 LV 133/-15, -1 09:07:55 LVp 131/-15, -7 09:08:00 AOp 138/81 (99) 09:08:05 AO 111/74 (88) SA 09:09:49 Type SV CO (l/m) CI (l/m/ HR Time AIR REST Thermal 25.00 2.67 1.59 107 08:37:09 Gini 32.70 3.50 2.08 107 08:37:09 Label % O2 Pres/Loc Time AIR REST AO 92 PV 09:12:53 PA 57 PA 09:13:02 Signed By David Arzate MD On 02/07/2018 09:37:40 David Arzate MD
[2018-02-07] MEDS: 0.9% NaCl Peripheral Flush Adult/Peds IV (10:07)
[2018-02-07] MEDS: Morphine 2 MG/ML Syringe 1 MG IV (10:07)
[2018-02-07] MEDS: Amiodarone 200 MG Tablet 400 MG PO ×2 (10:32→22:01)
[2018-02-07] MEDS: PARoxetine 10 MG Tablet PO (10:32)
[2018-02-07] MEDS: Acetaminophen 325 MG Tablet 650 MG PO ×2 (10:32→17:17)
[2018-02-07] MEDS: Montelukast 10 MG Tablet PO (10:32)
[2018-02-07] MEDS: Calcium Carb/Vitamin D 1 TABLET Tablet 2 TABLET PO (10:33)
[2018-02-07] MEDS: Furosemide 40 MG Tablet PO ×2 (10:33→17:17)
--- NOTE | 2018-02-07 11:14 | PN_ITS ---
Patient Problems: Active and Suspected Problems (Last Reviewed 02/05/18 @ 02:51 by Dhaval Barclay MD) Acute respiratory failure with hypoxia (Acute) New onset of congestive heart failure (Acute) Atrial fibrillation with RVR (Acute) Subjective: Patient transferred out of the intensive care unit yesterday. Patient did have some hypotension following administration of antihypertensive medications leading to slight delay in transfer, but patient has done well overnight. Patient did have a heart catheterization this morning and will possibly have a LEA for evaluation of mitral valve function. Patient reports back discomfort on the left that she associates with having to lie flat following heart catheterization. - Physical Exam General: Alert, Oriented x3, Cooperative, No apparent distress, Well developed, Well nourished, - - Patient's son at the bedside. Speaking in full sentences. HEENT: Atraumatic, PERRLA, EOMI, Normocephalic, - - No scleral icterus or injection noted. Oral: Moist Mucosa, No Gingival or Mucosal Lesions/ Ulcerations Neck: Supple, No JVD, No Nodes, Trachea Midline Lungs: No rhonchi, No wheeze, No rales, Diminished - Left base, - - Symmetric expansion. No dullness to percussion. Cardiovascular: Normal S1, Normal S2, Murmur - Grade 2 out of 6 diastolic murmur , No rub noted, No Gallop, Tachycardic Abdomen: Bowel Sounds Present, Soft, Non Tender, Non-Distended Extremities: No clubbing, No cyanosis, No edema, Capillary Refill Less than 3 Seconds Skin: No rashes, No breakdown Musculoskeletal: No Tenderness to Palpation of Joints or Extremities Lymphatic: No Cervical, Supraclavicular, or Inguinal Adenopathy Neurological: Cranial nerves II-XII grossly intact, Neuro grossly intact, Motor Exam 5/5 strength throughout Psych/Mental Status: Alert and oriented to time, place, person, mood and affect Vital Signs Temp Pulse Resp BP Pulse Ox 37.3 C 106 H 16 128/99 H 98 02/07/18 08:11 02/07/18 11:03 02/07/18 10:30 02/07/18 10:30 02/07/18 10:30 Oxygen Flow Rate (L/min) 2 Oxygen Delivery Method Room Air Weight: 60.5 kg Body Mass Index (BMI) 21.7 Intake and Output for Last 24 Hours 02/05/18 02/06/18 02/07/18 23:59 23:59 23:59 Intake Total 868.9 / 868.9 721.9 / 721.9 304 / 304 Output Total 3300 / 3300 1700 / 1700 Balance -2431.1 / -2431.1 -978.1 / -978.1 304 / 304 Laboratory Tests Past 24 Hrs 02/06/18 02/06/18 02/07/18 12:15 20:46 03:32 WBC RBC Hgb Hct MCV MCH MCHC RDW RDW Differential Plt Count MPV Immature Gran % (Auto) Neut % (Auto) Lymph % (Auto) [place] % (Auto) Eos % (Auto) Baso % (Auto) Absolute Neuts (auto) Absolute Lymphs (auto) Total Counted APTT 34.2 43.8 H 67.6 H Specimen Type pH Bicarbonate Actual POC Total CO2 Base Excess O2 Saturation ABG pCO2 ABG pO2 VBG pH VBG pO2 VBG O2 Sat (Calc) VBG O2 Content VBG Base Excess POC Mix VBG pCO2 Pt Tmp Sodium Potassium Chloride Carbon Dioxide Anion Gap BUN Creatinine Estim Creat Clear Calc Est GFR (MDRD) Af Amer Est GFR (MDRD) Non-Af BUN/Creatinine Ratio Glucose Calcium 02/07/18 02/07/18 02/07/18 03:32 03:32 09:04 WBC 4.1 L RBC 4.58 Hgb 13.4 Hct 40.2 MCV 87.8 MCH 29.3 MCHC 33.3 RDW 13.6 RDW Differential 43.0 Plt Count 199 MPV 11.2 Immature Gran % (Auto) 0.000 Neut % (Auto) 47.5 Lymph % (Auto) 36.8 [place] % (Auto) 12.1 H Eos % (Auto) 2.9 Baso % (Auto) 0.7 Absolute Neuts (auto) 2.0 Absolute Lymphs (auto) 1.52 Total Counted Not Reportable APTT Specimen Type HARVEY pH Bicarbonate Actual POC Total CO2 Base Excess O2 Saturation ABG pCO2 ABG pO2 VBG pH 7.46 H VBG pO2 27 VBG O2 Sat (Calc) 55 VBG O2 Content 28 VBG Base Excess 3 POC Mix VBG pCO2 Pt Tmp 37.1 L Sodium 142 Potassium 3.5 Chloride 105 Carbon Dioxide 27.0 Anion Gap 10 BUN 33 H Creatinine 1.33 H Estim Creat Clear Calc 30.95 Est GFR (MDRD) Af Amer 49 L Est GFR (MDRD) Non-Af 41 L BUN/Creatinine Ratio 24.8 H Glucose 86 Calcium 8.4 L 02/07/18 02/07/18 09:07 09:11 WBC RBC Hgb Hct MCV MCH MCHC RDW RDW Differential Plt Count MPV Immature Gran % (Auto) Neut % (Auto) Lymph % (Auto) [place] % (Auto) Eos % (Auto) Baso % (Auto) Absolute Neuts (auto) Absolute Lymphs (auto) Total Counted APTT Specimen Type HARVEY ART pH 7.46 H Bicarbonate Actual 24.5 POC Total CO2 26 Base Excess 1 O2 Saturation 92 L ABG pCO2 34.7 L ABG pO2 61 L VBG pH 7.47 H VBG pO2 28 VBG O2 Sat (Calc) 58 VBG O2 Content 27 VBG Base Excess 2 POC Mix VBG pCO2 Pt Tmp 36.2 L Sodium Potassium Chloride Carbon Dioxide Anion Gap BUN Creatinine Estim Creat Clear Calc Est GFR (MDRD) Af Amer Est GFR (MDRD) Non-Af BUN/Creatinine Ratio Glucose Calcium Medical Necessity - Tobacco Use Smoking Status: Never smoker Assessment/Plan All Active Problems (Last Reviewed 02/05/18 @ 02:51 by Dhaval Barclay MD) Acute respiratory failure with hypoxia (Acute) New onset of congestive heart failure (Acute) Atrial fibrillation with RVR (Acute) RECOMMENDATIONS: 1. Potassium supplementation if indicated 2. Consider decreasing diuretics 3. Wean oxygen as tolerated, walking oximetry prior to discharge 4. Repeat CT scan in 1-2 months 5. Incentive spirometer 6. No thoracentesis, antibiotics or steroids are indicated from my perspective 7. Will sign off from a critical care/pulmonary perspective. Patient will need to follow-up as an outpatient 2 weeks after discharge with nurse practitioner IMPRESSIONS: 1. Lung nodule/acute hypoxic respiratory insufficiency secondary to CHF with pleural effusions Unclear etiology of patient's lung nodules. Clinical suspicion for shadows from acute fluid overload initially. Patient has been successfully diuresed and is on room air and tolerating well. Patient continues to have left lower lobe atelectasis that would respond to incentive spirometer. Encourage incentive spirometer. Patient does have significant mitral disease on heart catheterization, which likely led to current condition. Increase in creatinine is likely indicating little more can be done with diuretic therapy. Given patient is on room air, thoracentesis is likely not indicated at this time. Would recommend a walking oximetry prior to discharge. 2. Acute systolic congestive heart failure secondary to A. fib with RVR Cardiology is currently consulted. Patient's rate is better controlled at this time. Heart cath completed earlier today. Some concern for mitral valve function. Dr. Riley is discussing with the family about possible LEA. 3. Fibromyalgia/reported asthma/secondary pulmonary hypertension/advanced age/anxiety Complicates care, management, recovery and prognosis. Keep saturations greater than 90% to optimize pulmonary pressures. Okay to continue with baseline anxiety medications. Code Visit Inpatient E&M: 51638 Subs Hosp L2
[2018-02-07] MEDS: clonazePAM 1 MG Tablet PO (12:20)
--- NOTE | 2018-02-07 15:41 | PCM.PN.HOSP ---
Patient Problems: Active and Suspected Problems (Last Reviewed 02/05/18 @ 02:51 by Dhaval Barclay MD) Acute respiratory failure with hypoxia (Acute) New onset of congestive heart failure (Acute) Atrial fibrillation with RVR (Acute) Subjective: Patient was seen and examined. She had cardiac cath today that showed clean coronaries; moderate mitral regurgitation is present. She complains of pain in the left low back. Denies any fever or chills or shortness of breath. Objective: Physical exam: General: Alert, Oriented x3, Cooperative, No apparent distress, off oxygen HEENT: Atraumatic, PERRLA, EOMI, Normocephalic Oral: Moist Mucosa Neck: Supple Lungs: Diminished, Rales - Decreased air entry in the right lower lung zones with crackles Cardiovascular: Regular rate, Regular Rhythm, Normal S1, Normal S2, No murmurs Abdomen: Bowel Sounds Present, Soft, Non Tender, Non-Distended, No Hepato-splenomegaly Extremities: Edema - Trace bilateral edema Skin: No rashes, No breakdown Musculoskeletal: No Tenderness to Palpation of Joints or Extremities Lymphatic: No Cervical, Supraclavicular, or Inguinal Adenopathy Neurological: Cranial nerves II-XII grossly intact, Neuro grossly intact Psych/Mental Status: Normal Affect, Appropriate Vitals/I&O's: Vital Signs Temp Pulse Resp BP Pulse Ox 98.9 F 113 H 16 115/85 H 97 02/07/18 13:30 02/07/18 14:58 02/07/18 13:30 02/07/18 13:30 02/07/18 13:30 Oxygen Flow Rate (L/min) 2 Oxygen Delivery Method Room Air Weight: 60.5 kg Body Mass Index (BMI) 21.7 Intake and Output for Last 24 Hours 02/05/18 02/06/18 02/07/18 23:59 23:59 23:59 Intake Total 868.9 / 868.9 721.9 / 721.9 784 / 784 Output Total 3300 / 3300 1700 / 1700 Balance -2431.1 / -2431.1 -978.1 / -978.1 784 / 784 Laboratory Results 02/06/18 20:46: APTT 43.8 H 02/07/18 03:32: APTT 67.6 H 02/07/18 03:32: WBC 4.1 L, RBC 4.58, Hgb 13.4, Hct 40.2, MCV 87.8, MCH 29.3, MCHC 33.3, RDW 13.6, RDW Differential 43.0, Plt Count 199, MPV 11.2, Immature Gran % (Auto) 0.000, Neut % (Auto) 47.5, Lymph % (Auto) 36.8, [place] % (Auto) 12.1 H, Eos % (Auto) 2.9, Baso % (Auto) 0.7, Absolute Neuts (auto) 2.0, Absolute Lymphs (auto) 1.52, Total Counted Not Reportable 02/07/18 03:32: Sodium 142, Potassium 3.5, Chloride 105, Carbon Dioxide 27.0, Anion Gap 10, BUN 33 H, Creatinine 1.33 H, Estim Creat Clear Calc 30.95, Est GFR (MDRD) Af Amer 49 L, Est GFR (MDRD) Non-Af 41 L, BUN/Creatinine Ratio 24.8 H, Glucose 86, Calcium 8.4 L 02/07/18 09:04: Specimen Type HARVEY, VBG pH 7.46 H, VBG pO2 27, VBG O2 Sat (Calc) 55, VBG O2 Content 28, VBG Base Excess 3, POC Mix VBG pCO2 Pt Tmp 37.1 L 02/07/18 09:07: Specimen Type HARVEY, VBG pH 7.47 H, VBG pO2 28, VBG O2 Sat (Calc) 58, VBG O2 Content 27, VBG Base Excess 2, POC Mix VBG pCO2 Pt Tmp 36.2 L 02/07/18 09:11: Specimen Type ART, pH 7.46 H, Bicarbonate Actual 24.5, POC Total CO2 26, Base Excess 1, O2 Saturation 92 L, ABG pCO2 34.7 L, ABG pO2 61 L Current Medications Acetaminophen (Tylenol) 650 mg PO Q6H PRN PRN PRN Reason: PAIN Last Admin: 02/07/18 10:32 Dose: 650 mg Amiodarone HCl (Cordarone) 400 mg PO BID ASHER Stop: 02/11/18 22:01 Last Admin: 02/07/18 10:32 Dose: 400 mg Amiodarone HCl (Cordarone) 200 mg PO DAILY ASHER Aspirin (Ecotrin) 81 mg PO DAILYCM ASHER Last Admin: 02/07/18 08:12 Dose: 81 mg Budesonide (Pulmicort Aerosol) 0.5 mg INHALATION Q12H.RT [facility] Last Admin: 02/07/18 06:50 Dose: 0.5 mg Calcium/Vitamin D (Os-Deion 500mg + D) 2 tablet PO DAILY [facility] Last Admin: 02/07/18 10:33 Dose: 2 tablet Carvedilol (Coreg) 3.125 mg PO BID [facility] Last Admin: 02/07/18 08:12 Dose: 3.125 mg Clonazepam (Klonopin) 1 mg PO DAILY PRN PRN PRN Reason: ANXIETY Last Admin: 02/07/18 12:20 Dose: 1 mg Ergocalciferol (Vitamin D) 50,000 unit PO Q7D [facility] Last Admin: 02/07/18 10:32 Dose: 50,000 unit Furosemide (Lasix) 40 mg PO BID@1000,1800 [facility] Last Admin: 02/07/18 10:33 Dose: 40 mg Heparin Sodium (Beef Lung) (Heparin 500 Unit/5 Ml (100/Ml)) 500 unit IV UD PRN PRN Reason: HEPARIN FLUSH Heparin Sodium (Porcine) (Heparin Na) 0 unit IV UD PRN PRN Reason: Protocol Last Admin: 02/06/18 21:50 Dose: 1,000 u Hydrocortisone Acetate (Anusol Hc) 25 mg RECTAL BID PRN PRN PRN Reason: PAIN Sodium Chloride () 1,000 mls @ 15 mls/hr IV .Q48H [facility] PRN Reason: KVO Last Admin: 02/06/18 17:02 Dose: Not Given Labetalol HCl (Trandate) 5 mg IV X1 PRN PRN Reason: SBP > 160 prior to sheath pull Montelukast Sodium (Singulair) 10 mg PO DAILY [facility] Last Admin: 02/07/18 10:32 Dose: 10 mg Paroxetine HCl (Paxil) 10 mg PO DAILY [facility] Last Admin: 02/07/18 10:32 Dose: 10 mg Sodium Chloride () 5 - 30 ml IV UD PRN PRN Reason: SALINE FLUSH Last Admin: 02/07/18 10:07 Dose: 10 ml Trazodone HCl (Desyrel) 100 mg PO QHS [facility] Last Admin: 02/06/18 21:50 Dose: 100 mg Medical Necessity - Tobacco Use Smoking Status: Never smoker Assessment/Plan All Active Problems (Last Reviewed 02/05/18 @ 02:51 by Dhaval Barclay MD) Acute respiratory failure with hypoxia (Acute) New onset of congestive heart failure (Acute) Atrial fibrillation with RVR (Acute) 82-year-old with history of paroxysmal atrial fibrillation about a year ago, not on anticoagulation, anxiety, asthma comes in with progressive shortness of breath ongoing for 1 week 1. Acute hypoxic respiratory insufficiency secondary to acute CHF/bilateral pleural effusions/atelectasis/A. fib with RVR,resolved 2. Acute CHF, newly diagnosed, acute systolic, EF of 35-40% with pulmonary hypertension, switch to oral Lasix 40 mg p.o. twice daily, continue with strict I's and O's, daily weights. 3. Bilateral pleural effusion, likely secondary to acute CHF, improving. 4. Consolidation seen on both chest x-ray and CT of the chest concerning for possible right lower lobe pneumonia, no clinical evidence of pneumonia, doubt pneumonia, likely atelectasis, will not treat with antibiotics. 5. A. fib with RVR, rate controlled now, started on amiodarone by cardiology, on Coreg, remains on heparin drip, eventual discharge on oral eliquis by cardiology. 6. Left lung nodule, pulmo consulted, needs to be followed up in the outpatient, will have repeat CT scan of the chest for further evaluation in the outpatient. 7. COPD/asthma, no signs of exacerbation, will have as needed breathing treatment 8. Anxiety, on ativan prn, trazodone, Paxil , will continue same for now 9. Hypokalemia, replaced, recheck in am 10. Slightly elevated creatinine levels, likely secondary to diuretic use, not acute kidney injury, switch to oral diuretics, will trend BMP 11. DVT PPx- On heparin drip Code Visit Inpatient E&M: 63359 Subs Hosp L2
[2018-02-07] MEDS: traZODone 100 MG Tablet PO (21:51)
[2018-02-08] VITALS (17 sets, daily range): BP systolic 75–109; BP diastolic 44–72; PULSE 80–123; RESP 14–18; TEMP 36.4–36.9; O2SAT 93–97
[2018-02-08 05:41] LABS: Color, Urine Straw (Yellow); Glucose, Dipstick Normal (Normal); Ketone-Dipstick Negative (Negative); Leukocyte Esterase-Dipstick Negative /ul (Negative); Nitrite-Dipstick Negative (Negative); Occult Blood-Urine Negative /ul (Negative); Protein-Dipstick Negative (Negative); Urine Bilirubin Dipstick Negative (Negative); Urine Clarity Clear (Clear); Urine Urobilinogen Normal (Normal)
[2018-02-08 05:44] LABS: Absolute Lymphocyte Count 1.45 X10^3/ul (0.83-4.51); Basophil# 0.03 X10^3/uL; Basophil% 0.5 % (0-1); Eosinophil# 0.15 X10^3/uL; Eosinophils% 2.3 % (0-5); Hematocrit 42.3 % (37-47); Lymphocyte # 1.45 X10^3/ul (4.0); Lymphocyte % 22.7 % (19-41); Mean Corp Hgb Conc 33.1 g/gl (32-36); Mean Corpuscular Hgb 29.2 pg (27.0-32.0); Mean Corpuscular Volume 88.1 fL (81-99); Monocyte# 0.72 X10^3/uL; Monocyte% 11.3 % (0-10); Neutrophil # 4.04 X10^3/uL (2.7-7.7); Platelet Count 215 K/mm3 (150-450); RBC Distribution Width CV 13.8 % (11.6-14.6); RBC Distribution Width SD 43.9 fl (35.1-43.9); White Blood Count 6.4 K/mm3 (4.4-11.0)
[2018-02-08 06:03] LABS: Anion Gap 10 (5-15); BUN 36 mg/dL (7-18); BUN/Creat Ratio 26.7 RATIO (10-20); Calcium,Total 9.1 mg/dL (8.5-10.1); Chloride 105 mmol/L (98-107); Creatinine, Serum 1.35 mg/dL (0.55-1.02); EST Glomerular Filtration Rate 40 mL/min (>60); Est Glom Filt Rate - Afr Amer 48 mL/min (>60); Estimated Creatinine Clearance 31.01 ml/min; Glucose 89 mg/dL (74-106); Potassium 3.3 mmol/L (3.5-5.1); Sodium Level 143 mmol/L (136-145)
[2018-02-08 06:09] LABS: POSITIVE COUNT NO; POSITIVE DIFFERENTIAL NO; POSITIVE MORPHOLOGY NO
[2018-02-08] MEDS: Budesonide Respules 0.5 MG/2 ML AMPUL.NEB. INHALATION ×2 (07:02→21:30)
--- NOTE | 2018-02-08 08:56 | ECHOTEE_ITS ---
Reason For Study: MV DISORDER Medication LEA probe passed with minimal difficulty. No complications were noted. [id number] gargled and swallowed. Cetacaine Topical Melvin given X2 orally. Versed 6 mg given slow IVP. Fentanyl 50 mcg given slow IVP. Performed a rapid injection of agitated mix of 9 cc saline and 1cc air to assess for atrial septal defect. Left Ventricle Mildly dilated left ventricle. The estimated ejection fraction is 35-40 %. There is moderate global hypokinesis of the left ventricle. Right Ventricle Normal size and thickness. The right ventricular wall motion is normal. Atria Normal atrial septum. Bubble contrast study negative for right to left interatrial shunt. Normal left atrium. No thrombus is detected in the left atrial appendage. Diminshed LA contraction velocities c/w atrial fibrillation. Normal right atrium. Mitral Valve Mild focal mitral valve thickening. Moderately severe (3+) eccentric mitral valve insufficiency. Tricuspid Valve Normal tricuspid valve. Moderate (2+) tricuspid valve insufficiency. Aortic Valve Trisinus/trileaflet aortic valve. Normal aortic valve. Pulmonic Valve Normal pulmonic valve. Vessels Normal aortic root. Normal arch. The pulmonary artery is normal size. Pulmonary venous flow attenuated systolic component. Interpretation Summary The estimated ejection fraction is 35-40 %. There is moderate global hypokinesis of the left ventricle. Bubble contrast study negative for right to left interatrial shunt. Moderately severe (3+) eccentric mitral valve insufficiency. Moderate (2+) tricuspid valve insufficiency. No thrombus is detected in the left atrial appendage. Diminshed LA contraction velocities c/w atrial fibrillation. Pulmonary venous flow attenuated systolic component c/w signficant MR. Pt appears to be in atrial fibrillation. Ordering Physician: David Arzate Referring Physician: CAREN MATTHEWS Performed By: Rosalee Campo, RDCS, RVT ??? Reason For Study: MV DISORDER Interpretation Summary The estimated ejection fraction is 35-40 %. There is moderate global hypokinesis of the left ventricle. Bubble contrast study negative for right to left interatrial shunt. Moderately severe (3+) eccentric mitral valve insufficiency. Moderate (2+) tricuspid valve insufficiency. No thrombus is detected in the left atrial appendage. Diminshed LA contraction velocities c/w atrial fibrillation. Pulmonary venous flow attenuated systolic component c/w signficant MR. Pt appears to be in atrial fibrillation. Ordering Physician: David Arzate Referring Physician: CAREN MATTHEWS Performed By: Rosalee Campo, CONSTANTINO, RVT
--- NOTE | 2018-02-08 09:40 | PCM.PN.CARD ---
Subjectve: Patient doing very well this morning. No 24 hour events. Telemetry showed atrial fibrillation with controlled ventricular rate spots. No ventricular arrhythmias. LEA pending. Right groin is clean/dry/intact without evidence of thrills, bruits or hematoma. Objective: Vital Signs Temp Pulse Resp BP Pulse Ox 97.6 F L 97 16 86/50 L 94 02/08/18 09:23 02/08/18 09:23 02/08/18 09:23 02/08/18 09:23 02/08/18 09:23 Oxygen Flow Rate (L/min) 2 Oxygen Delivery Method Room Air Weight: 132 lb 7.965 oz Body Mass Index (BMI) 20.9 Intake and Output for Last 24 Hours 02/06/18 02/07/18 02/08/18 23:59 23:59 23:59 Intake Total 721.9 / 721.9 1024 / 1024 240 / 240 Output Total 1700 / 1700 Balance -978.1 / -978.1 1024 / 1024 240 / 240 General: Awake, Alert, Oriented x 3 HEENT: PERRL, EOMI, Sclera Non Icteric Neck: Supple, Good ROM, No Lymph Node Enlargement Lungs: Clear to auscultation Cardiovascular: Regular Rhythm, Normal S1, Normal S2, No Rubs, No Gallops Murmur Murmur: Grade 2/6, Holosystolic Vascular: No Carotid Bruits, Normal Femoral Pulses, Normal Radial Pulses, Normal Dorsalis Pedal Pulse, Normal Posterior Tibial Pulses Abdomen: Bowel Sounds Present, Soft, Non Tender, No HSM, No Organomegaly Extremities: No Cyanosis, No Clubbing, No edema Neurological: No Focal Motor or Sensory Deficit 02/07/18 05:30: Urine Color Straw, Urine Clarity Clear, Urine pH 7.0, Ur Specific [place] 1.010, Urine Protein Negative, Urine Glucose (UA) Normal, Urine Ketones Negative, Urine Occult Blood Negative, Urine Nitrite Negative, Urine Bilirubin Negative, Urine Urobilinogen Normal, Ur Leukocyte Esterase Negative 02/08/18 05:18: WBC 6.4, RBC 4.80, Hgb 14.0, Hct 42.3, MCV 88.1, MCH 29.2, MCHC 33.1, RDW 13.8, RDW Differential 43.9, Plt Count 215, MPV 11.0, Immature Gran % (Auto) 0.200, Neut % (Auto) 63.0, Lymph % (Auto) 22.7, [place] % (Auto) 11.3 H, Eos % (Auto) 2.3, Baso % (Auto) 0.5, Absolute Neuts (auto) 4.0, Total Counted Not Reportable 02/08/18 05:18: Sodium 143, Potassium 3.3 L, Chloride 105, Carbon Dioxide 28.0, Anion Gap 10, BUN 36 H, Creatinine 1.35 H, Est GFR (MDRD) Af Amer 48 L, Est GFR (MDRD) Non-Af 40 L, BUN/Creatinine Ratio 26.7 H, Glucose 89, Calcium 9.1 02/08/18 05:18: Magnesium 2.0 Rhythm: EKG: ECHO: Stress Test: Cardiac Cath: PCI: CT Surgery: Holter monitor: EPS: PPM: CXR: Chest CT Scan: Medical Necessity - Tobacco Use Smoking Status: Never smoker Assessment/Plan 1. Atrial fibrillation: The patient has had several episodes of atrial fibrillation and is at high risk for TIA/CVA, and possibly DVT as well. 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 Her heart rate is been well controlled with both IV and now p.o. amiodarone.. Patient had a noninvasive nuclear stress test at the [facility] on 10/05/16 which was negative for inducible ischemia. Her recent echocardiogram showed intact LV function and mild pulmonary hypertension with an RVSP of approximately 43 mmHg. Her echocardiogram however on this admission showed moderate global LV dysfunction with an EF around 35-40%, 2+ mitral regurgitation, and an RVSP of at least 35 mmHg. This appears to be out of alignment with her LV function on her last echocardiogram and her clinical presentation of congestive heart failure with left pleural effusion. Patient underwent diagnostic left and right heart catheterization yesterday which showed normal coronary arteries, moderate global LV dysfunction with an EF around 45%, and what appeared to be severe mitral regurgitation with illumination of the pulmonary veins during LV angiogram. Her pulmonary pressures fortunately have normalized with IV diuresis. At this point I recommended that she undergo a transesophageal echocardiogram to better evaluate her mitral regurgitation. If the patient has severe mitral regurgitation in the face of LV dysfunction, I would refer her to [facility] for possible mitral valve repair surgery despite her age. This would be predicated on making sure that the spiculated mass noted in her CT scan and chest x-ray was evaluated and ruled out to be malignancy. After her LEA is completed, and until her surgery takes place, I would recommend lifelong anticoagulation with Eliquis 2.5 mg p.o. twice day. Patient has been seen by Dr. Jean-Paul Ramirez in consultation. She is currently on Coreg would recommend decreasing her Coreg to 3.125 mg p.o. twice daily and titrating up from there. Mg p.o. twice daily. We will continue p.o. beta-dario as well as p.o. amiodarone going forward. Once the patient is on Eliquis for period of 3 weeks time we may entertain the option of DC cardioversion but the likelihood of successful cardioversion is fairly low given her severe left atrial enlargement and chronic atrial fibrillation. 2. Discussed the outcome of the catheterization with the patient's family, and explained the purpose for the transesophageal echocardiogram as well. 3. Thank you very much for the opportunity to participate in the cardiac care of your patient. LEA pending. Code Visit Inpatient E&M: 79394 Subs Hosp L2
--- NOTE | 2018-02-08 09:46 | PN.CARD_ITS ---
Subjectve: Patient doing very well this morning. No 24 hour events. Telemetry showed atrial fibrillation with controlled ventricular rate spots. No ventricular arrhythmias. LEA pending. Right groin is clean/dry/intact without evidence of thrills, bruits or hematoma. Objective: Vital Signs Temp Pulse Resp BP Pulse Ox 97.6 F L 97 16 86/50 L 94 02/08/18 09:23 02/08/18 09:23 02/08/18 09:23 02/08/18 09:23 02/08/18 09:23 Oxygen Flow Rate (L/min) 2 Oxygen Delivery Method Room Air Weight: 132 lb 7.965 oz Body Mass Index (BMI) 20.9 Intake and Output for Last 24 Hours 02/06/18 02/07/18 02/08/18 23:59 23:59 23:59 Intake Total 721.9 / 721.9 1024 / 1024 240 / 240 Output Total 1700 / 1700 Balance -978.1 / -978.1 1024 / 1024 240 / 240 General: Awake, Alert, Oriented x 3 HEENT: PERRL, EOMI, Sclera Non Icteric Neck: Supple, Good ROM, No Lymph Node Enlargement Lungs: Clear to auscultation Cardiovascular: Regular Rhythm, Normal S1, Normal S2, No Rubs, No Gallops Murmur Murmur: Grade 2/6, Holosystolic Vascular: No Carotid Bruits, Normal Femoral Pulses, Normal Radial Pulses, Normal Dorsalis Pedal Pulse, Normal Posterior Tibial Pulses Abdomen: Bowel Sounds Present, Soft, Non Tender, No HSM, No Organomegaly Extremities: No Cyanosis, No Clubbing, No edema Neurological: No Focal Motor or Sensory Deficit 02/07/18 05:30: Urine Color Straw, Urine Clarity Clear, Urine pH 7.0, Ur Specific [place] 1.010, Urine Protein Negative, Urine Glucose (UA) Normal, Urine Ketones Negative, Urine Occult Blood Negative, Urine Nitrite Negative, Urine Bilirubin Negative, Urine Urobilinogen Normal, Ur Leukocyte Esterase Negative 02/08/18 05:18: WBC 6.4, RBC 4.80, Hgb 14.0, Hct 42.3, MCV 88.1, MCH 29.2, MCHC 33.1, RDW 13.8, RDW Differential 43.9, Plt Count 215, MPV 11.0, Immature Gran % (Auto) 0.200, Neut % (Auto) 63.0, Lymph % (Auto) 22.7, Coffey % (Auto) 11.3 H, Eos % (Auto) 2.3, Baso % (Auto) 0.5, Absolute Neuts (auto) 4.0, Total Counted Not Reportable 02/08/18 05:18: Sodium 143, Potassium 3.3 L, Chloride 105, Carbon Dioxide 28.0, Anion Gap 10, BUN 36 H, Creatinine 1.35 H, Est GFR (MDRD) Af Amer 48 L, Est GFR (MDRD) Non-Af 40 L, BUN/Creatinine Ratio 26.7 H, Glucose 89, Calcium 9.1 02/08/18 05:18: Magnesium 2.0 Rhythm: EKG: ECHO: Stress Test: Cardiac Cath: PCI: CT Surgery: Holter monitor: EPS: PPM: CXR: Chest CT Scan: Medical Necessity - Tobacco Use Smoking Status: Never smoker Assessment/Plan 1. Atrial fibrillation: The patient has had several episodes of atrial fibrillation and is at high risk for TIA/CVA, and possibly DVT as well. 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 Her heart rate is been well controlled with both IV and now p.o. amiodarone.. Patient had a noninvasive nuclear stress test at the [facility] on which was negative for inducible ischemia. Her recent echocardiogram showed intact LV function and mild pulmonary hypertension with an RVSP of approximately 43 mmHg. Her echocardiogram however on this admission showed moderate global LV dysfunction with an EF around 35-40%, 2+ mitral regurgitation , and an RVSP of at least 35 mmHg. This appears to be out of alignment with her LV function on her last echocardiogram and her clinical presentation of congestive heart failure with left pleural effusion. Patient underwent diagnostic left and right heart catheterization yesterday which showed normal coronary arteries, moderate global LV dysfunction with an EF around 45%, and what appeared to be severe mitral regurgitation with illumination of the pulmonary veins during LV angiogram. Her pulmonary pressures fortunately have normalized with IV diuresis. At this point I recommended that she undergo a transesophageal echocardiogram to better evaluate her mitral regurgitation. If the patient has severe mitral regurgitation in the face of LV dysfunction, I would refer her to [facility] for possible mitral valve repair surgery despite her age. This would be predicated on making sure that the spiculated mass noted in her CT scan and chest x-ray was evaluated and ruled out to be malignancy. After her LEA is completed, and until her surgery takes place, I would recommend lifelong anticoagulation with Eliquis 2.5 mg p.o. twice day. Patient has been seen by Dr. Jean-Paul Ramirez in consultation. She is currently on Coreg would recommend decreasing her Coreg to 3.125 mg p.o. twice daily and titrating up from there. Mg p.o. twice daily. We will continue p.o. beta-dario as well as p.o. amiodarone going forward. Once the patient is on Eliquis for period of 3 weeks time we may entertain the option of DC cardioversion but the likelihood of successful cardioversion is fairly low given her severe left atrial enlargement and chronic atrial fibrillation. 2. Discussed the outcome of the catheterization with the patient's family, and explained the purpose for the transesophageal echocardiogram as well. 3. Thank you very much for the opportunity to participate in the cardiac care of your patient. LEA pending. Code Visit Inpatient E&M: 47221 Subs Hosp L2
--- NOTE | 2018-02-08 11:26 | NURSING ---
Called cardiovascular services and spoke with Aixa. Gave report on patient's condition and low bp with updated set of vitals.
[2018-02-08] MEDS: 0.9% NaCl Peripheral Flush Adult/Peds IV (11:29)
--- NOTE | 2018-02-08 14:11 | PN_ITS ---
<Eugene Haley - Last Filed: 02/08/18 14:02> Patient Problems: Active and Suspected Problems (Last Reviewed 02/05/18 @ 02:51 by Dhaval Barclay MD) Acute respiratory failure with hypoxia (Acute) New onset of congestive heart failure (Acute) Atrial fibrillation with RVR (Acute) Subjective: Pt resting comfortably in bed. No CP, no SOB, no palp. No SOB with exertion. Not dizzy or LH. Agreeable to LEA. Underwent, during procedure received versed, fentanyl, lopressor - post was hypotensive. Recovered with 500 cc bolus. - Physical Exam General: Alert, Oriented x3, Cooperative HEENT: Atraumatic, PERRLA, EOMI, Normocephalic Neck: Supple, No JVD, Negative Carotid Bruits Lungs: Clear to auscultation, Normal air movement Cardiovascular: No murmurs, Irregular Rate, Tachycardic Abdomen: Bowel Sounds Present, Soft, Non Tender Extremities: No edema, Capillary Refill Less than 3 Seconds Skin: No rashes, No breakdown Musculoskeletal: No Tenderness to Palpation of Joints or Extremities Neurological: Cranial nerves II-XII grossly intact Psych/Mental Status: Normal Affect, Appropriate, Alert and oriented to time, place, person, mood and affect Vital Signs Temp Pulse Resp BP Pulse Ox 97.8 F 108 H 14 99/59 L 94 02/08/18 13:48 02/08/18 13:48 02/08/18 13:48 02/08/18 13:48 02/08/18 13:48 Oxygen Flow Rate (L/min) 2 Oxygen Delivery Method Room Air Weight: 132 lb 7.965 oz Body Mass Index (BMI) 20.9 Intake and Output for Last 24 Hours 02/06/18 02/07/18 02/08/18 23:59 23:59 23:59 Intake Total 721.9 / 721.9 1024 / 1024 240 / 240 Output Total 1700 / 1700 Balance -978.1 / -978.1 1024 / 1024 240 / 240 Laboratory Tests Past 24 Hrs 02/07/18 02/08/18 02/08/18 05:30 05:18 05:18 WBC 6.4 RBC 4.80 Hgb 14.0 Hct 42.3 MCV 88.1 MCH 29.2 MCHC 33.1 RDW 13.8 RDW Differential 43.9 Plt Count 215 MPV 11.0 Immature Gran % (Auto) 0.200 Neut % (Auto) 63.0 Lymph % (Auto) 22.7 Coleman % (Auto) 11.3 H Eos % (Auto) 2.3 Baso % (Auto) 0.5 Absolute Neuts (auto) 4.0 Absolute Lymphs (auto) 1.45 Total Counted Not Reportable Sodium 143 Potassium 3.3 L Chloride 105 Carbon Dioxide 28.0 Anion Gap 10 BUN 36 H Creatinine 1.35 H Estim Creat Clear Calc 31.01 Est GFR (MDRD) Af Amer 48 L Est GFR (MDRD) Non-Af 40 L BUN/Creatinine Ratio 26.7 H Glucose 89 Calcium 9.1 Magnesium Urine Color Straw Urine Clarity Clear Urine pH 7.0 Ur Specific [place] 1.010 Urine Protein Negative Urine Glucose (UA) Normal Urine Ketones Negative Urine Occult Blood Negative Urine Nitrite Negative Urine Bilirubin Negative Urine Urobilinogen Normal Ur Leukocyte Esterase Negative 02/08/18 05:18 WBC RBC Hgb Hct MCV MCH MCHC RDW RDW Differential Plt Count MPV Immature Gran % (Auto) Neut % (Auto) Lymph % (Auto) [place] % (Auto) Eos % (Auto) Baso % (Auto) Absolute Neuts (auto) Absolute Lymphs (auto) Total Counted Sodium Potassium Chloride Carbon Dioxide Anion Gap BUN Creatinine Estim Creat Clear Calc Est GFR (MDRD) Af Amer Est GFR (MDRD) Non-Af BUN/Creatinine Ratio Glucose Calcium Magnesium 2.0 Urine Color Urine Clarity Urine pH Ur Specific [place] Urine Protein Urine Glucose (UA) Urine Ketones Urine Occult Blood Urine Nitrite Urine Bilirubin Urine Urobilinogen Ur Leukocyte Esterase Medical Necessity - Tobacco Use Smoking Status: Never smoker Assessment/Plan All Active Problems (Last Reviewed 02/05/18 @ 02:51 by Dhaval Barclay MD) Acute respiratory failure with hypoxia (Acute) New onset of congestive heart failure (Acute) Atrial fibrillation with RVR (Acute) 1. Acute hypoxic respiratory failure 2/2 Acute systolic/diastolic CHF - complicated by pulmonary htn, with BL pleural effusions. EF 35-40%, LEA today to assess valves. Cardiology following. s/p cath - clear coronaries. I/O have shifted to positive balance but weight continues to decline suggesting good overall output. 2. Hypotension - likely 2/2 procedural sedation + 1 dose lopressor for tachy, recovered with 500 cc bolus. 3. AF with RVR - amiodarone, heparin, transition to eliquis per cards. Still mildly tachy, however BP remains low normal. Monitor overnight. 4. Left lung nodule - pulm f/u as o/p. Needs CT chest - can be done as o/p. 5. COPD/asthma - stable. PRN aerosols. 6. Anxiety - continue current therapy 7. Hypokalemia - repleted, mag normal. 8. Elevated Creatinine - suspect CKD III. Stable. Trend with lasix therapy. On PO now. Lower dose of lasix if worse in am. DVT ppx: Heparin to Eliquis DC planning: possibly stable for DC tomorrow. This patient was seen by Eugene Haley PA-C under the supervision of Doctor Ventura. <Constance Ventura - Last Filed: 02/08/18 16:08> - Physical Exam Vital Signs Temp Pulse Resp BP Pulse Ox 97.8 F 108 H 14 99/59 L 94 02/08/18 13:48 02/08/18 13:48 02/08/18 13:48 02/08/18 13:48 02/08/18 13:48 Oxygen Flow Rate (L/min) 2 Oxygen Delivery Method Room Air Weight: 60.1 kg Body Mass Index (BMI) 20.9 Intake and Output for Last 24 Hours 02/06/18 02/07/18 02/08/18 23:59 23:59 23:59 Intake Total 721.9 / 721.9 1024 / 1024 240 / 240 Output Total 1700 / 1700 Balance -978.1 / -978.1 1024 / 1024 240 / 240 Laboratory Tests Past 24 Hrs 02/07/18 02/08/18 02/08/18 05:30 05:18 05:18 WBC 6.4 RBC 4.80 Hgb 14.0 Hct 42.3 MCV 88.1 MCH 29.2 MCHC 33.1 RDW 13.8 RDW Differential 43.9 Plt Count 215 MPV 11.0 Immature Gran % (Auto) 0.200 Neut % (Auto) 63.0 Lymph % (Auto) 22.7 [place] % (Auto) 11.3 H Eos % (Auto) 2.3 Baso % (Auto) 0.5 Absolute Neuts (auto) 4.0 Absolute Lymphs (auto) 1.45 Total Counted Not Reportable Sodium 143 Potassium 3.3 L Chloride 105 Carbon Dioxide 28.0 Anion Gap 10 BUN 36 H Creatinine 1.35 H Estim Creat Clear Calc 31.01 Est GFR (MDRD) Af Amer 48 L Est GFR (MDRD) Non-Af 40 L BUN/Creatinine Ratio 26.7 H Glucose 89 Calcium 9.1 Magnesium Urine Color Straw Urine Clarity Clear Urine pH 7.0 Ur Specific [place] 1.010 Urine Protein Negative Urine Glucose (UA) Normal Urine Ketones Negative Urine Occult Blood Negative Urine Nitrite Negative Urine Bilirubin Negative Urine Urobilinogen Normal Ur Leukocyte Esterase Negative 02/08/18 05:18 WBC RBC Hgb Hct MCV MCH MCHC RDW RDW Differential Plt Count MPV Immature Gran % (Auto) Neut % (Auto) Lymph % (Auto) [place] % (Auto) Eos % (Auto) Baso % (Auto) Absolute Neuts (auto) Absolute Lymphs (auto) Total Counted Sodium Potassium Chloride Carbon Dioxide Anion Gap BUN Creatinine Estim Creat Clear Calc Est GFR (MDRD) Af Amer Est GFR (MDRD) Non-Af BUN/Creatinine Ratio Glucose Calcium Magnesium 2.0 Urine Color Urine Clarity Urine pH Ur Specific [place] Urine Protein Urine Glucose (UA) Urine Ketones Urine Occult Blood Urine Nitrite Urine Bilirubin Urine Urobilinogen Ur Leukocyte Esterase Assessment/Plan Patient was seen and examined. Agree with the interval history, physical exam, assessment and plan as documented by physician blood and plasma laboratory assistant, Eugene Haley. Patient was kept n.p.o. for LEA today. No acute events overnight Discussed with cardiology, findings included moderate MR, will be medically managed. Said to be relatively hypotensive after procedure secondary to medications given. Telemetry showed A. fib with RVR which is still uncontrolled, transitioned to Eliquis from tomorrow Code Visit Inpatient E&M: 75509 Subs Hosp L2
[2018-02-08] MEDS: Amiodarone 200 MG Tablet 400 MG PO (20:18)
[2018-02-08] MEDS: Carvedilol 6.25 MG Tablet PO (20:23)
[2018-02-08] MEDS: traZODone 100 MG Tablet PO (21:34)
[2018-02-09] VITALS (14 sets, daily range): BP systolic 90–123; BP diastolic 54–85; PULSE 89–117; RESP 16–18; TEMP 36.6–36.8; O2SAT 96–97
[2018-02-09 06:42] LABS: Anion Gap 8 (5-15); BUN 33 mg/dL (7-18); BUN/Creat Ratio 28.9 RATIO (10-20); Calcium,Total 8.6 mg/dL (8.5-10.1); Chloride 108 mmol/L (98-107); Creatinine, Serum 1.14 mg/dL (0.55-1.02); EST Glomerular Filtration Rate 49 mL/min (>60); Est Glom Filt Rate - Afr Amer 59 mL/min (>60); Estimated Creatinine Clearance 36.72 ml/min; Glucose 80 mg/dL (74-106); Potassium 3.9 mmol/L (3.5-5.1); Sodium Level 143 mmol/L (136-145)
[2018-02-09] MEDS: Budesonide Respules 0.5 MG/2 ML AMPUL.NEB. INHALATION ×2 (07:01→19:35)
[2018-02-09] MEDS: Montelukast 10 MG Tablet PO (08:40)
[2018-02-09] MEDS: Aspirin E.C. 81 MG Tablet PO (08:40)
[2018-02-09] MEDS: Carvedilol 6.25 MG Tablet PO ×2 (08:41→21:34)
[2018-02-09] MEDS: Furosemide 40 MG Tablet PO ×2 (08:41→18:01)
[2018-02-09] MEDS: Amiodarone 200 MG Tablet 400 MG PO ×2 (08:41→21:34)
[2018-02-09] MEDS: PARoxetine 10 MG Tablet PO (08:41)
[2018-02-09] MEDS: Calcium Carb/Vitamin D 1 TABLET Tablet 2 TABLET PO (08:41)
--- NOTE | 2018-02-09 11:25 | CASEMGMT ---
RN CM NOTE: Pt sitting up in recliner chair. Spoke with pt re: preference of HHC agency and pt states does not have a preference. Call placed to Cleo @ [facility] and referral made. Cleo states they are able to accept pt. Cleo made aware of plan for discharge today. Haja DOAN RN CM
--- NOTE | 2018-02-09 11:28 | PCM.DC ---
- Discharge Diagnoses Current Active Problems: Current Active and Chronic Problems (Last Reviewed 02/05/18 @ 02:51 by Dhaval Barclay MD) Acute respiratory failure with hypoxia (Acute) New onset of congestive heart failure (Acute) Atrial fibrillation with RVR (Acute) You will use the following diet at home:: Cardiac Your food should be the consistency of: Regular Your liquids should be the consistency of: Regular/Thin Discharge Activity: Return to Normal Activity Allergies/Adverse Reactions: Allergies No Known Allergies Allergy (Verified 02/04/18 23:53) Medications to take at Discharge Albuterol Sulfate [Proventil Hfa] 2 puff IH 4X/DAY PRN PRN 05/14/13 Calcium Carb/Vitamin D [Caltrate-600 With Vit D Tab] 2 tab PO DAILY 05/14/13 Montelukast [Singulair] 10 mg PO DAILY 05/14/13 Paroxetine HCl [Paxil] 10 mg PO DAILY 05/14/13 traZODone [Desyrel] 100 mg PO QHS 05/14/13 Clonazepam [Klonopin] 1 mg PO DAILY PRN PRN 09/14/16 aspirin 81 mg tablet,delayed release 81 mg PO QDAY tab 09/21/17 Beclomethasone Diprop Inhaler [Qvar 80 Mcg Inhaler] 2 puff INHALATION BID 02/05/18 Ergocalciferol [Vitamin D] 50,000 unit PO Q7D 02/05/18 Hydrocortisone [Anusol Hc] 25 mg RECTAL BID PRN PRN 02/05/18 Amiodarone HCl [Cordarone] 200 mg PO DAILY #60 tab 02/09/18 Amiodarone HCl [Cordarone] 400 mg PO BID #10 tab 02/09/18 Apixaban [Eliquis] 2.5 mg PO BID #60 tab 02/09/18 Carvedilol [Coreg (Beta Vikki)] 6.25 mg PO BID #60 tab 02/09/18 Furosemide [Lasix] 40 mg PO BID@1000,1800 #60 tab 02/09/18 The following prescriptions were given: Amiodarone HCl [Cordarone] 400 mg PO BID #10 tab Amiodarone HCl [Cordarone] 200 mg PO DAILY #60 tab Apixaban [Eliquis] 2.5 mg PO BID #60 tab Carvedilol [Coreg (Beta Vikki)] 6.25 mg PO BID #60 tab Furosemide [Lasix] 40 mg PO BID@1000,1800 #60 tab Primary Care Physician: Cielo Ribeiro MD [Primary Care Provider] - Please follow up with your Primary Care Physician in: 1-2 weeks Test Results: Test results from this visit will be discussed in further detail at your follow-up appointment, if applicable. Please Follow Up With: Jw Rodriguez MD When: 2 weeks Proposed Discharge Date: 02/09/18
--- NOTE | 2018-02-09 11:50 | CASEMGMT ---
KAUSHIK DEL TORO LO-CHECK NOTE: Called [facility] for lo check on Eliquis. Co-pay is $29.10. Pt given 30-day free trial with explanation. Voices understanding. Haja DOAN RN CM
--- NOTE | 2018-02-09 12:55 | PCM.PN.CARD ---
Subjectve: Patient doing well this morning, no 24 hour events. No difficulty swallowing. Telemetry shows atrial fibrillation with controlled ventricular response. Objective: Vital Signs Temp Pulse Resp BP Pulse Ox 97.9 F 109 H 18 111/61 96 02/09/18 08:26 02/09/18 12:29 02/09/18 08:26 02/09/18 08:26 02/09/18 08:26 Oxygen Flow Rate (L/min) 2 Oxygen Delivery Method Room Air Weight: 123 lb 7.342 oz Body Mass Index (BMI) 20.9 Intake and Output for Last 24 Hours 02/07/18 02/08/18 02/09/18 23:59 23:59 23:59 Intake Total 1024 / 1024 720 / 720 745 / 745 Balance 1024 / 1024 720 / 720 745 / 745 General: Awake, Alert, Oriented x 3 HEENT: PERRL, EOMI, Sclera Non Icteric Neck: Supple, Good ROM, No Lymph Node Enlargement Lungs: Clear to auscultation Cardiovascular: Irregular Rhythm, Normal S1, Normal S2, No Rubs, No Gallops Murmur Murmur: Grade 2/6, Holosystolic Vascular: No Carotid Bruits, Normal Femoral Pulses, Normal Radial Pulses, Normal Dorsalis Pedal Pulse, Normal Posterior Tibial Pulses Abdomen: Bowel Sounds Present, Soft, Non Tender, No HSM, No Organomegaly Extremities: No Cyanosis, No Clubbing, No edema Neurological: No Focal Motor or Sensory Deficit 02/09/18 05:35: Sodium 143, Potassium 3.9, Chloride 108 H, Carbon Dioxide 27.0, Anion Gap 8, BUN 33 H, Creatinine 1.14 H, Est GFR (MDRD) Af Amer 59 L, Est GFR (MDRD) Non-Af 49 L, BUN/Creatinine Ratio 28.9 H, Glucose 80, Calcium 8.6 Rhythm: EKG: ECHO: Stress Test: Cardiac Cath: PCI: CT Surgery: Holter monitor: EPS: PPM: CXR: Chest CT Scan: Medical Necessity - Tobacco Use Smoking Status: Never smoker Assessment/Plan 1. Atrial fibrillation: The patient has had several episodes of atrial fibrillation and is at high risk for TIA/CVA, and possibly DVT as well. 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 Her heart rate is been well controlled with both IV and now p.o. amiodarone.. Patient had a noninvasive nuclear stress test at the [facility] on 10/05/16 which was negative for inducible ischemia. Her recent echocardiogram showed intact LV function and mild pulmonary hypertension with an RVSP of approximately 43 mmHg. Her echocardiogram however on this admission showed moderate global LV dysfunction with an EF around 35-40%, 2+ mitral regurgitation, and an RVSP of at least 35 mmHg. This appears to be out of alignment with her LV function on her last echocardiogram and her clinical presentation of congestive heart failure with left pleural effusion. Patient underwent diagnostic left and right heart catheterization yesterday which showed normal coronary arteries, moderate global LV dysfunction with an EF around 45%, and what appeared to be severe mitral regurgitation with illumination of the pulmonary veins during LV angiogram. Her pulmonary pressures fortunately have normalized with IV diuresis. To better evaluate her mitral valve regurgitation she underwent a transesophageal echocardiogram yesterday which shows at least moderate mitral regurgitation with blunting of pulmonary venous inflow velocities. This would be predicated on making sure that the spiculated mass noted in her CT scan and chest x-ray was evaluated and ruled out to be malignancy. Now that her LEA is completed, and until her surgery takes place, I would recommend lifelong anticoagulation with Eliquis 2.5 mg p.o. twice day. Patient has been seen by Dr. Jean-Paul Ramirez in consultation. She is currently on Coreg would recommend decreasing her Coreg to 3.125 mg p.o. twice daily and titrating up from there. Mg p.o. twice daily. Given her age and comorbidities, particularly with respect to her undiagnosed lung mass, I would hold off on referring her for mitral valve repair surgery at this time. I believe we can medically control her with beta-dario, amiodarone, diuretics and afterload reducing agents. She reports that she has been in atrial fibrillation about a year and a half to her knowledge, and she may hopefully be able to be cardioverted in 3 weeks time with amiodarone assistance. I believe she would benefit from resynchronization given her mitral regurgitation and LV dysfunction. We will continue p.o. beta-dario as well as p.o. amiodarone going forward. She will follow-up with Dr. Rodriguez in 4-6 weeks time. Also recommended that the patient be evaluated for an interim correction facility prior to going home given her social situation with her demented at home. She will be evaluated by social work today. 2. I thoroughly discussed the outcome of the catheterization and transesophageal echocardiogram with the patient, her family, and all questions have been answered. 3. Thank you very much for the opportunity to participate in the cardiac care of your patient. Patient may be transferred to correction facility once deemed appropriate by primary care for service. Code Visit Inpatient E&M: 13525 Subs Hosp L2
--- NOTE | 2018-02-09 12:57 | CASEMGMT ---
RN ALVERTO NOTE: Pt's son in room and voiced concerns about pt going home, stating he does not feel pt is well enough to go home and would like to look into options of a long term facility. Pt states would prefer to go home d/t concerns about her , as she is his primary caregiver, but states she is agreeable to SNF if that is what her son feels is best. JOANNE Newsome, notified and in to talk with pt and son w/KAUSHIK DEL TORO. Cleo @ [facility] notified that family requesting SNF placement for pt at this time. Haja DOAN RN CM
--- NOTE | 2018-02-09 12:59 | PN.CARD_ITS ---
Subjectve: Patient doing well this morning, no 24 hour events. No difficulty swallowing. Telemetry shows atrial fibrillation with controlled ventricular response. Objective: Vital Signs Temp Pulse Resp BP Pulse Ox 97.9 F 109 H 18 111/61 96 02/09/18 08:26 02/09/18 12:29 02/09/18 08:26 02/09/18 08:26 02/09/18 08:26 Oxygen Flow Rate (L/min) 2 Oxygen Delivery Method Room Air Weight: 123 lb 7.342 oz Body Mass Index (BMI) 20.9 Intake and Output for Last 24 Hours 02/07/18 02/08/18 02/09/18 23:59 23:59 23:59 Intake Total 1024 / 1024 720 / 720 745 / 745 Balance 1024 / 1024 720 / 720 745 / 745 General: Awake, Alert, Oriented x 3 HEENT: PERRL, EOMI, Sclera Non Icteric Neck: Supple, Good ROM, No Lymph Node Enlargement Lungs: Clear to auscultation Cardiovascular: Irregular Rhythm, Normal S1, Normal S2, No Rubs, No Gallops Murmur Murmur: Grade 2/6, Holosystolic Vascular: No Carotid Bruits, Normal Femoral Pulses, Normal Radial Pulses, Normal Dorsalis Pedal Pulse, Normal Posterior Tibial Pulses Abdomen: Bowel Sounds Present, Soft, Non Tender, No HSM, No Organomegaly Extremities: No Cyanosis, No Clubbing, No edema Neurological: No Focal Motor or Sensory Deficit 02/09/18 05:35: Sodium 143, Potassium 3.9, Chloride 108 H, Carbon Dioxide 27.0, Anion Gap 8, BUN 33 H, Creatinine 1.14 H, Est GFR (MDRD) Af Amer 59 L, Est GFR ( MDRD) Non-Af 49 L, BUN/Creatinine Ratio 28.9 H, Glucose 80, Calcium 8.6 Rhythm: EKG: ECHO: Stress Test: Cardiac Cath: PCI: CT Surgery: Holter monitor: EPS: PPM: CXR: Chest CT Scan: Medical Necessity - Tobacco Use Smoking Status: Never smoker Assessment/Plan 1. Atrial fibrillation: The patient has had several episodes of atrial fibrillation and is at high risk for TIA/CVA, and possibly DVT as well. 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 Her heart rate is been well controlled with both IV and now p.o. amiodarone.. Patient had a noninvasive nuclear stress test at the [facility] on which was negative for inducible ischemia. Her recent echocardiogram showed intact LV function and mild pulmonary hypertension with an RVSP of approximately 43 mmHg. Her echocardiogram however on this admission showed moderate global LV dysfunction with an EF around 35-40%, 2+ mitral regurgitation , and an RVSP of at least 35 mmHg. This appears to be out of alignment with her LV function on her last echocardiogram and her clinical presentation of congestive heart failure with left pleural effusion. Patient underwent diagnostic left and right heart catheterization yesterday which showed normal coronary arteries, moderate global LV dysfunction with an EF around 45%, and what appeared to be severe mitral regurgitation with illumination of the pulmonary veins during LV angiogram. Her pulmonary pressures fortunately have normalized with IV diuresis. To better evaluate her mitral valve regurgitation she underwent a transesophageal echocardiogram yesterday which shows at least moderate mitral regurgitation with blunting of pulmonary venous inflow velocities. This would be predicated on making sure that the spiculated mass noted in her CT scan and chest x-ray was evaluated and ruled out to be malignancy. Now that her LEA is completed, and until her surgery takes place, I would recommend lifelong anticoagulation with Eliquis 2.5 mg p.o. twice day. Patient has been seen by Dr. Jean-Paul Ramirez in consultation. She is currently on Coreg would recommend decreasing her Coreg to 3.125 mg p.o. twice daily and titrating up from there. Mg p.o. twice daily. Given her age and comorbidities, particularly with respect to her undiagnosed lung mass, I would hold off on referring her for mitral valve repair surgery at this time. I believe we can medically control her with beta-dario, amiodarone , diuretics and afterload reducing agents. She reports that she has been in atrial fibrillation about a year and a half to her knowledge, and she may hopefully be able to be cardioverted in 3 weeks time with amiodarone assistance. I believe she would benefit from resynchronization given her mitral regurgitation and LV dysfunction. We will continue p.o. beta-dario as well as p.o. amiodarone going forward. She will follow-up with Dr. Rodriguez in 4-6 weeks time. Also recommended that the patient be evaluated for an interim nursing home facility prior to going home given her social situation with her demented at home. She will be evaluated by social work today. 2. I thoroughly discussed the outcome of the catheterization and transesophageal echocardiogram with the patient, her family, and all questions have been answered. 3. Thank you very much for the opportunity to participate in the cardiac care of your patient. Patient may be transferred to nursing home facility once deemed appropriate by primary care for service. Code Visit Inpatient E&M: 89678 Subs Hosp L2
--- NOTE | 2018-02-09 13:21 | CASEMGMT ---
JOANNE was told patient's son wants her to go to a long term as she is too weak to care for herself and her . SW reviewed PT/OT. OT has discontinued their services as they feel they are no longer needed. PT has recommended home with home health as she is walking 150' no assistive device, contact guard min assist of 1. JOANNE spoke with patient and her son letting them know this information and that she likely will not be approved for a long term. Her son said she is not safe for home and he wants her to go to a facility. JOANNE told them she will be here through the weekend waiting on insurance. [facility] JOANNE told her the only way she could go to [facility] is if her in and out of network benefits are the same as [facility] does not have contracts worked out with insurance. JOANNE also told her SW is pretty sure [facility] is out of network, but SW can check. JOANNE did tell her [facility] and [facility] are in network and she did not want them. JOANNE told her there is [facility] in [place], a couple of facilities in [place], and [facility]. She said she wants to stay in [place]. JOANNE faxed referrals to [facility]. Await their responses. Mercedez DUFFY HEMP FIBER TAKER OFF
--- NOTE | 2018-02-09 13:47 | PN_ITS ---
<Eugene Haley - Last Filed: 02/09/18 13:44> Patient Problems: Active and Suspected Problems (Last Reviewed 02/05/18 @ 02:51 by Dhaval Barclay MD) Acute respiratory failure with hypoxia (Acute) New onset of congestive heart failure (Acute) Atrial fibrillation with RVR (Acute) Subjective: Pt without CP, palp, SOB. Still somewhat weak but did ok with therapy. Initially plan was Home with Home health however now the family is unsure if she will be ok at home. She will stay to see if she qualifies for pre cert. - Physical Exam General: Alert, Oriented x3, Cooperative HEENT: Atraumatic, PERRLA, EOMI, Normocephalic Neck: Supple, No JVD, Negative Carotid Bruits Lungs: Clear to auscultation, Normal air movement Cardiovascular: No murmurs, Irregular Rate Abdomen: Bowel Sounds Present, Soft, Non Tender Extremities: No edema, Capillary Refill Less than 3 Seconds Skin: No rashes, No breakdown Musculoskeletal: No Tenderness to Palpation of Joints or Extremities Neurological: Cranial nerves II-XII grossly intact Psych/Mental Status: Normal Affect, Appropriate, Alert and oriented to time, place, person, mood and affect Vital Signs Temp Pulse Resp BP Pulse Ox 97.9 F 109 H 18 111/61 96 02/09/18 08:26 02/09/18 12:29 02/09/18 08:26 02/09/18 08:26 02/09/18 08:26 Oxygen Flow Rate (L/min) 2 Oxygen Delivery Method Room Air Weight: 123 lb 7.342 oz Body Mass Index (BMI) 20.9 Intake and Output for Last 24 Hours 02/07/18 02/08/18 02/09/18 23:59 23:59 23:59 Intake Total 1024 / 1024 720 / 720 745 / 745 Balance 1024 / 1024 720 / 720 745 / 745 Laboratory Tests Past 24 Hrs 02/09/18 05:35 Sodium 143 Potassium 3.9 Chloride 108 H Carbon Dioxide 27.0 Anion Gap 8 BUN 33 H Creatinine 1.14 H Estim Creat Clear Calc 36.72 Est GFR (MDRD) Af Amer 59 L Est GFR (MDRD) Non-Af 49 L BUN/Creatinine Ratio 28.9 H Glucose 80 Calcium 8.6 Medical Necessity - Tobacco Use Smoking Status: Never smoker Assessment/Plan All Active Problems (Last Reviewed 02/05/18 @ 02:51 by Dhaval Barclay MD) Acute respiratory failure with hypoxia (Acute) New onset of congestive heart failure (Acute) Atrial fibrillation with RVR (Acute) 1. Acute hypoxic respiratory failure 2/2 Acute systolic/diastolic CHF - Resolved. No on PO lasix. complicated by pulmonary htn, with BL pleural effusions. EF 35-40%, LEA today to assess valves. Cardiology following. s/p cath - clear coronaries. 2. Mitral insufficiency - mod/sev. No need for transfer at this time per cardiology. 3. AF with RVR - Stable. amiodarone, eliquis. 4. Left lung nodule - pulm f/u as o/p. Needs CT chest - can be done as o/p. 5. COPD/asthma - stable. PRN aerosols. 6. Anxiety - continue current therapy 7. Hypokalemia - repleted, mag normal. 8. Elevated Creatinine - suspect CKD III. Stable. DVT ppx: Eliquis. DC planning: SNF vs C. This patient was seen by Eugene Haley PA-C under the supervision of Doctor Ventura. <Constance Ventura - Last Filed: 02/09/18 17:12> - Physical Exam Vital Signs Temp Pulse Resp BP Pulse Ox 97.9 F 108 H 18 94/54 L 96 02/09/18 16:27 02/09/18 16:27 02/09/18 16:27 02/09/18 16:27 02/09/18 16:27 Oxygen Flow Rate (L/min) 2 Oxygen Delivery Method Room Air Weight: 56 kg Body Mass Index (BMI) 20.9 Intake and Output for Last 24 Hours 02/07/18 02/08/18 02/09/18 23:59 23:59 23:59 Intake Total 1024 / 1024 720 / 720 745 / 745 Balance 1024 / 1024 720 / 720 745 / 745 Laboratory Tests Past 24 Hrs 02/09/18 05:35 Sodium 143 Potassium 3.9 Chloride 108 H Carbon Dioxide 27.0 Anion Gap 8 BUN 33 H Creatinine 1.14 H Estim Creat Clear Calc 36.72 Est GFR (MDRD) Af Amer 59 L Est GFR (MDRD) Non-Af 49 L BUN/Creatinine Ratio 28.9 H Glucose 80 Calcium 8.6 Assessment/Plan Patient was seen and examined. I agree with interval history, physical exam and assessment and plan as documented by physician assistant plant controller Eugene Haley. Patient appears improved. Family wants patient to go for short-term rehab Vitals reviewed, heart rates still high but less than 110, blood pressures running relatively low Lab investigation shows improvement in creatinine, Medications reviewed Continue all medications now, will work with care managers Code Visit Inpatient E&M: 34505 Subs Hosp L2
--- NOTE | 2018-02-09 14:20 | CASEMGMT ---
SW spoke with Pippa at [facility] and Christen at [facility]. They both will accept patient. SW spoke with patient and told her, her benefits. In network is coverage at 100% as long as insurance approves with a $150 deductible. Her out of network benefits are 92% coverage after a $500 deductible. She asked SW to come back when her son gets back. Mercedez DUFFY MSW
[2018-02-09] MEDS: 0.9% NaCl Peripheral Flush Adult/Peds IV (20:11)
[2018-02-09] MEDS: Acetaminophen 325 MG Tablet 650 MG PO (21:25)
[2018-02-09] MEDS: APIXABAN 2.5 MG TABLET PO (21:34)
[2018-02-09] MEDS: traZODone 100 MG Tablet PO (21:34)
[2018-02-10] VITALS (16 sets, daily range): BP systolic 79–136; BP diastolic 46–76; PULSE 74–122; RESP 13–18; TEMP 36.4–37.1; O2SAT 96–98
[2018-02-10] MEDS: Budesonide Respules 0.5 MG/2 ML AMPUL.NEB. INHALATION (06:59)
[2018-02-10] MEDS: Amiodarone 200 MG Tablet 400 MG PO ×2 (09:22→22:45)
[2018-02-10] MEDS: APIXABAN 2.5 MG TABLET PO ×2 (09:23→22:45)
[2018-02-10] MEDS: Aspirin E.C. 81 MG Tablet PO (09:23)
[2018-02-10] MEDS: Carvedilol 6.25 MG Tablet PO ×2 (09:23→22:45)
[2018-02-10] MEDS: Montelukast 10 MG Tablet PO (09:24)
[2018-02-10] MEDS: Furosemide 40 MG Tablet PO (09:24)
[2018-02-10] MEDS: PARoxetine 10 MG Tablet PO (09:24)
[2018-02-10] MEDS: Calcium Carb/Vitamin D 1 TABLET Tablet 2 TABLET PO (09:25)
--- NOTE | 2018-02-10 13:31 | PN_ITS ---
<Eugene Haley - Last Filed: 02/10/18 13:29> Patient Problems: Active and Suspected Problems (Last Reviewed 02/05/18 @ 02:51 by Dhaval Barclay MD) Acute respiratory failure with hypoxia (Acute) New onset of congestive heart failure (Acute) Atrial fibrillation with RVR (Acute) Subjective: Pt did complain of lightheadedness ambulating across the room. Orthos were positive. She has no CP, pressure, tightness, palpitations, or SOB. She is waiting for placement. - Physical Exam General: Alert, Oriented x3, Cooperative HEENT: Atraumatic, PERRLA, EOMI, Normocephalic Neck: Supple, No JVD, Negative Carotid Bruits Lungs: Clear to auscultation, Normal air movement Cardiovascular: Regular rate, No murmurs Abdomen: Bowel Sounds Present, Soft, Non Tender Extremities: No edema, Capillary Refill Less than 3 Seconds Skin: No rashes, No breakdown Musculoskeletal: No Tenderness to Palpation of Joints or Extremities Neurological: Cranial nerves II-XII grossly intact Psych/Mental Status: Normal Affect, Appropriate, Alert and oriented to time, place, person, mood and affect Vital Signs Temp Pulse Resp BP Pulse Ox 98.6 F 102 H 18 106/72 97 02/10/18 09:20 02/10/18 13:06 02/10/18 09:20 02/10/18 13:06 02/10/18 09:20 Oxygen Flow Rate (L/min) 2 Oxygen Delivery Method Room Air Weight: 123 lb 3.814 oz Body Mass Index (BMI) 20.9 Orthostatic Vital Signs Start: 02/10/18 13:06 Freq: q24h Status: Active Protocol: Activity Type Activity Date Activity User E-Sign Co-Sign Detail Recorded Client Recorded Date Recorded By Document 02/10/18 13:06 [facility] [id number] 02/10/18 13:12 [facility] 02/10/18 13:06 Orthostatic Vitals Standing -Blood Pressure (90/60-120/80) 79/62 L -Extremity Use Right Arm -Pulse Rate (60-100) 108 H Sitting -Blood Pressure (90/60-120/80) 90/56 L -Extremity Use Right Arm -Pulse Rate (60-100) 94 Lying -Blood Pressure (90/60-120/80) 106/72 -Extremity Use Right Arm -Pulse Rate (60-100) 102 H Intake and Output for Last 24 Hours 02/08/18 02/09/18 02/10/18 23:59 23:59 23:59 Intake Total 720 / 720 1510 / 1510 1777 / 1777 Balance 720 / 720 1510 / 1510 1777 / 1777 Medical Necessity - Tobacco Use Smoking Status: Never smoker Assessment/Plan All Active Problems (Last Reviewed 02/05/18 @ 02:51 by Dhaval Barclay MD) Acute respiratory failure with hypoxia (Acute) New onset of congestive heart failure (Acute) Atrial fibrillation with RVR (Acute) 1. Acute hypoxic respiratory failure 2/2 Acute systolic/diastolic CHF - Resolved. No on PO lasix, decrease dose for + orthos. complicated by pulmonary htn, with BL pleural effusions. EF 35-40%, LEA today to assess valves. Cardiology following. s/p cath - clear coronaries. 2. Orthostatic hypotension - she is likely dry from diuresis. I will lower her oral lasix dose as she does not have any sob, rales, swelling, and is lasix naive. 3. Mitral insufficiency - mod/sev. No need for transfer at this time per cardiology. 4. AF with RVR - Stable. amiodarone, eliquis. 5. Left lung nodule - pulm f/u as o/p. Needs CT chest - can be done as o/p. 6. COPD/asthma - stable. PRN aerosols. 7. Anxiety - continue current therapy 8. Hypokalemia - repleted, mag normal. 9. Elevated Creatinine - suspect CKD III. Recheck in AM. DVT ppx: Eliquis. DC planning: waiting for snf placement. This patient was seen by Eugene Haley PA-C under the supervision of Doctor Ventura. <Constance Ventura - Last Filed: 02/10/18 16:56> - Physical Exam Vital Signs Temp Pulse Resp BP Pulse Ox 98.6 F 102 H 18 106/72 97 02/10/18 09:20 02/10/18 13:06 02/10/18 09:20 02/10/18 13:06 02/10/18 09:20 Oxygen Flow Rate (L/min) 2 Oxygen Delivery Method Room Air Weight: 55.9 kg Body Mass Index (BMI) 20.9 Orthostatic Vital Signs Start: 02/10/18 13:06 Freq: q24h Status: Active Protocol: Activity Type Activity Date Activity User E-Sign Co-Sign Detail Recorded Client Recorded Date Recorded By Document 02/10/18 13:06 [facility] [id number] 02/10/18 13:12 [facility] 02/10/18 13:06 Orthostatic Vitals Standing -Blood Pressure (90/60-120/80) 79/62 L -Extremity Use Right Arm -Pulse Rate (60-100) 108 H Sitting -Blood Pressure (90/60-120/80) 90/56 L -Extremity Use Right Arm -Pulse Rate (60-100) 94 Lying -Blood Pressure (90/60-120/80) 106/72 -Extremity Use Right Arm -Pulse Rate (60-100) 102 H Intake and Output for Last 24 Hours 02/08/18 02/09/18 02/10/18 23:59 23:59 23:59 Intake Total 720 / 720 1510 / 1510 1777 / 1777 Balance 720 / 720 1510 / 1510 1777 / 1777 Assessment/Plan Patient was seen and examined. I agree with the interval history, and assessment and plan as documented by physician library media assistant Eugene Haley. She denies any new complains. She feels like she is getting better. Denies headache, dizziness, SOB. Orthostatic vitals are positive. Physical exam is unremarkable. On reduced dose of Lasix. Will give 250mls IV fluid bolus, hold Lasix today, recheck orthostatic vitals, resume lasix at 20mg po daily. Code Visit Inpatient E&M: 80694 Subs Hosp L2
[2018-02-10] MEDS: Acetaminophen 325 MG Tablet 650 MG PO (14:32)
[2018-02-10] MEDS: 0.9% NaCl Peripheral Flush Adult/Peds IV (14:35)
[2018-02-10] MEDS: traZODone 100 MG Tablet PO (22:45)
[2018-02-11] VITALS (14 sets, daily range): BP systolic 85–121; BP diastolic 52–81; PULSE 78–109; RESP 12–18; TEMP 36.6–36.9; O2SAT 95–98
[2018-02-11] MEDS: 0.9% NaCl Peripheral Flush Adult/Peds IV ×2 (05:50→18:20)
[2018-02-11 06:18] LABS: Anion Gap 9 (5-15); BUN 32 mg/dL (7-18); BUN/Creat Ratio 23.4 RATIO (10-20); Calcium,Total 8.7 mg/dL (8.5-10.1); Chloride 106 mmol/L (98-107); Creatinine, Serum 1.37 mg/dL (0.55-1.02); EST Glomerular Filtration Rate 39 mL/min (>60); Est Glom Filt Rate - Afr Amer 48 mL/min (>60); Estimated Creatinine Clearance 28.42 ml/min; Glucose 93 mg/dL (74-106); Potassium 3.6 mmol/L (3.5-5.1); Sodium Level 143 mmol/L (136-145)
[2018-02-11] MEDS: Aspirin E.C. 81 MG Tablet PO (09:57)
[2018-02-11] MEDS: Amiodarone 200 MG Tablet 400 MG PO ×2 (09:57→21:39)
[2018-02-11] MEDS: PARoxetine 10 MG Tablet PO (09:57)
[2018-02-11] MEDS: Furosemide 20 MG Tablet PO (09:58)
[2018-02-11] MEDS: APIXABAN 2.5 MG TABLET PO ×2 (09:58→21:39)
[2018-02-11] MEDS: Calcium Carb/Vitamin D 1 TABLET Tablet 2 TABLET PO (09:59)
[2018-02-11] MEDS: Carvedilol 6.25 MG Tablet PO ×2 (09:59→21:39)
[2018-02-11] MEDS: Montelukast 10 MG Tablet PO (10:01)
--- NOTE | 2018-02-11 12:14 | PCM.PROGNOTE ---
<Eugene Haley - Last Filed: 02/11/18 12:14> Patient Problems: Active and Suspected Problems (Last Reviewed 02/05/18 @ 02:51 by Dhaval Barclay MD) Acute respiratory failure with hypoxia (Acute) New onset of congestive heart failure (Acute) Atrial fibrillation with RVR (Acute) Subjective: No issues. Waiting for placement. No dizziness, LH, palp, chest pain/pressure/tightness, SOB. She is concerned about returning home as her smokes in the house. - Physical Exam General: Alert, Oriented x3, Cooperative HEENT: Atraumatic, PERRLA, EOMI, Normocephalic Neck: Supple, No JVD, Negative Carotid Bruits Lungs: Clear to auscultation, Normal air movement Cardiovascular: No murmurs, Irregular Rate Abdomen: Bowel Sounds Present, Soft, Non Tender Extremities: No edema, Capillary Refill Less than 3 Seconds Skin: No rashes, No breakdown Musculoskeletal: No Tenderness to Palpation of Joints or Extremities Neurological: Cranial nerves II-XII grossly intact Psych/Mental Status: Appropriate, Anxious, Alert and oriented to time, place, person, mood and affect Vital Signs Temp Pulse Resp BP Pulse Ox 97.8 F 96 16 94/62 95 02/11/18 09:52 02/11/18 09:52 02/11/18 09:52 02/11/18 09:52 02/11/18 09:52 Oxygen Flow Rate (L/min) 2 Oxygen Delivery Method Room Air Weight: 122 lb 12.76 oz Body Mass Index (BMI) 20.9 Orthostatic Vital Signs Start: 02/10/18 13:06 Freq: q24h Status: Active Protocol: Activity Type Activity Date Activity User E-Sign Co-Sign Detail Recorded Client Recorded Date Recorded By Document 02/11/18 04:47 [facility] [id number] 02/11/18 05:04 NIR[facility] 02/11/18 04:47 Orthostatic Vitals Standing -Extremity Use Right Arm Sitting -Blood Pressure (90/60-120/80) 85/52 L -Extremity Use Right Arm -Pulse Rate (60-100) 100 Lying -Blood Pressure (90/60-120/80) 121/81 H -Extremity Use Right Arm -Pulse Rate (60-100) 102 H Intake and Output for Last 24 Hours 02/09/18 02/10/18 02/11/18 23:59 23:59 23:59 Intake Total 1510 / 1510 2853 / 2853 540 / 540 Balance 1510 / 1510 2853 / 2853 540 / 540 Laboratory Tests Past 24 Hrs 02/11/18 05:17 Sodium 143 Potassium 3.6 Chloride 106 Carbon Dioxide 28.0 Anion Gap 9 BUN 32 H Creatinine 1.37 H Estim Creat Clear Calc 28.42 Est GFR (MDRD) Af Amer 48 L Est GFR (MDRD) Non-Af 39 L BUN/Creatinine Ratio 23.4 H Glucose 93 Calcium 8.7 Medical Necessity - Tobacco Use Smoking Status: Never smoker Assessment/Plan All Active Problems (Last Reviewed 02/05/18 @ 02:51 by Dhaval Barclay MD) Acute respiratory failure with hypoxia (Acute) New onset of congestive heart failure (Acute) Atrial fibrillation with RVR (Acute) 1. Acute hypoxic respiratory failure 2/2 Acute systolic/diastolic CHF - Resolved. Hold lasix for + orthos. complicated by pulmonary htn, with BL pleural effusions. EF 35-40%, LEA today to assess valves. Cardiology following. s/p cath - clear coronaries. 2. Orthostatic hypotension - she is likely dry from diuresis. Hold lasix. Received 250 cc bolus yesterday, 500 cc this AM after repeat + orthos. Recheck TID. 3. Mitral insufficiency - mod/sev. No need for transfer at this time per cardiology. 4. AF with RVR - Stable. amiodarone, eliquis. 5. Left lung nodule - pulm f/u as o/p. Needs CT chest - can be done as o/p. 6. COPD/asthma - stable. PRN aerosols. 7. Anxiety - continue current therapy 8. Hypokalemia - repleted, mag normal. 9. Elevated Creatinine - suspect CKD III. Stable. DVT ppx: Eliquis. DC planning: waiting for snf placement. This patient was seen by Eugene Haley PA-C under the supervision of Doctor Ventura. <Constance Ventura - Last Filed: 02/11/18 12:53> - Physical Exam Vital Signs Temp Pulse Resp BP Pulse Ox 97.8 F 96 16 94/62 95 02/11/18 09:52 02/11/18 09:52 02/11/18 09:52 02/11/18 09:52 02/11/18 09:52 Oxygen Flow Rate (L/min) 2 Oxygen Delivery Method Room Air Weight: 55.7 kg Body Mass Index (BMI) 20.9 Orthostatic Vital Signs Start: 02/10/18 13:06 Freq: q24h Status: Active Protocol: Activity Type Activity Date Activity User E-Sign Co-Sign Detail Recorded Client Recorded Date Recorded By Document 02/11/18 04:47 [facility] [id number] 02/11/18 05:04 [facility] 02/11/18 04:47 Orthostatic Vitals Standing -Extremity Use Right Arm Sitting -Blood Pressure (90/60-120/80 mm Hg) 85/52 L -Extremity Use Right Arm -Pulse Rate (60-100 beats/min) 100 Lying -Blood Pressure (90/60-120/80 mm Hg) 121/81 H -Extremity Use Right Arm -Pulse Rate (60-100 beats/min) 102 H Intake and Output for Last 24 Hours 02/09/18 02/10/18 02/11/18 23:59 23:59 23:59 Intake Total 1510 / 1510 2853 / 2853 1165 / 1165 Balance 1510 / 1510 2853 / 2853 1165 / 1165 Laboratory Tests Past 24 Hrs 02/11/18 05:17 Sodium 143 Potassium 3.6 Chloride 106 Carbon Dioxide 28.0 Anion Gap 9 BUN 32 H Creatinine 1.37 H Estim Creat Clear Calc 28.42 Est GFR (MDRD) Af Amer 48 L Est GFR (MDRD) Non-Af 39 L BUN/Creatinine Ratio 23.4 H Glucose 93 Calcium 8.7 Assessment/Plan Patient was seen and examined. I agree with the interval history, and assessment and plan as documented by physician assistant coach Eugene Haley. She denies any new complains. Denies chest pain, headache, dizziness, SOB. Orthostatic vitals remains positive. Received fluid boluses yesterday; Lasix held. Physical exam is unremarkable. Will give fluid boluses, recheck orthostatics today. Continue to hold off Lasix. Code Visit Inpatient E&M: [id number] Subs Hosp L2
--- NOTE | 2018-02-11 12:18 | PN_ITS ---
<Eugene Haley - Last Filed: 02/11/18 12:14> Patient Problems: Active and Suspected Problems (Last Reviewed 02/05/18 @ 02:51 by Dhaval Barclay MD) Acute respiratory failure with hypoxia (Acute) New onset of congestive heart failure (Acute) Atrial fibrillation with RVR (Acute) Subjective: No issues. Waiting for placement. No dizziness, LH, palp, chest pain/pressure/ tightness, SOB. She is concerned about returning home as her smokes in the house. - Physical Exam General: Alert, Oriented x3, Cooperative HEENT: Atraumatic, PERRLA, EOMI, Normocephalic Neck: Supple, No JVD, Negative Carotid Bruits Lungs: Clear to auscultation, Normal air movement Cardiovascular: No murmurs, Irregular Rate Abdomen: Bowel Sounds Present, Soft, Non Tender Extremities: No edema, Capillary Refill Less than 3 Seconds Skin: No rashes, No breakdown Musculoskeletal: No Tenderness to Palpation of Joints or Extremities Neurological: Cranial nerves II-XII grossly intact Psych/Mental Status: Appropriate, Anxious, Alert and oriented to time, place, person, mood and affect Vital Signs Temp Pulse Resp BP Pulse Ox 97.8 F 96 16 94/62 95 02/11/18 09:52 02/11/18 09:52 02/11/18 09:52 02/11/18 09:52 02/11/18 09:52 Oxygen Flow Rate (L/min) 2 Oxygen Delivery Method Room Air Weight: 122 lb 12.76 oz Body Mass Index (BMI) 20.9 Orthostatic Vital Signs Start: 02/10/18 13:06 Freq: q24h Status: Active Protocol: Activity Type Activity Date Activity User E-Sign Co-Sign Detail Recorded Client Recorded Date Recorded By Document 02/11/18 04:47 [facility] [place] [id number] 02/11/18 05:04 NIRANJAN 02/11/18 04:47 Orthostatic Vitals Standing -Extremity Use Right Arm Sitting -Blood Pressure (90/60-120/80) 85/52 L -Extremity Use Right Arm -Pulse Rate (60-100) 100 Lying -Blood Pressure (90/60-120/80) 121/81 H -Extremity Use Right Arm -Pulse Rate (60-100) 102 H Intake and Output for Last 24 Hours 02/09/18 02/10/18 02/11/18 23:59 23:59 23:59 Intake Total 1510 / 1510 2853 / 2853 540 / 540 Balance 1510 / 1510 2853 / 2853 540 / 540 Laboratory Tests Past 24 Hrs 02/11/18 05:17 Sodium 143 Potassium 3.6 Chloride 106 Carbon Dioxide 28.0 Anion Gap 9 BUN 32 H Creatinine 1.37 H Estim Creat Clear Calc 28.42 Est GFR (MDRD) Af Amer 48 L Est GFR (MDRD) Non-Af 39 L BUN/Creatinine Ratio 23.4 H Glucose 93 Calcium 8.7 Medical Necessity - Tobacco Use Smoking Status: Never smoker Assessment/Plan All Active Problems (Last Reviewed 02/05/18 @ 02:51 by Dhaval Barclay MD) Acute respiratory failure with hypoxia (Acute) New onset of congestive heart failure (Acute) Atrial fibrillation with RVR (Acute) 1. Acute hypoxic respiratory failure 2/2 Acute systolic/diastolic CHF - Resolved. Hold lasix for + orthos. complicated by pulmonary htn, with BL pleural effusions. EF 35-40%, LEA today to assess valves. Cardiology following. s/p cath - clear coronaries. 2. Orthostatic hypotension - she is likely dry from diuresis. Hold lasix. Received 250 cc bolus yesterday, 500 cc this AM after repeat + orthos. Recheck TID. 3. Mitral insufficiency - mod/sev. No need for transfer at this time per cardiology. 4. AF with RVR - Stable. amiodarone, eliquis. 5. Left lung nodule - pulm f/u as o/p. Needs CT chest - can be done as o/p. 6. COPD/asthma - stable. PRN aerosols. 7. Anxiety - continue current therapy 8. Hypokalemia - repleted, mag normal. 9. Elevated Creatinine - suspect CKD III. Stable. DVT ppx: Eliquis. DC planning: waiting for snf placement. This patient was seen by Eugene Haley PA-C under the supervision of Doctor Ventura. <Constance Ventura - Last Filed: 02/11/18 12:53> - Physical Exam Vital Signs Temp Pulse Resp BP Pulse Ox 97.8 F 96 16 94/62 95 02/11/18 09:52 02/11/18 09:52 02/11/18 09:52 02/11/18 09:52 02/11/18 09:52 Oxygen Flow Rate (L/min) 2 Oxygen Delivery Method Room Air Weight: 55.7 kg Body Mass Index (BMI) 20.9 Orthostatic Vital Signs Start: 02/10/18 13:06 Freq: q24h Status: Active Protocol: Activity Type Activity Date Activity User E-Sign Co-Sign Detail Recorded Client Recorded Date Recorded By Document 02/11/18 04:47 [facility] [place] [id number] 02/11/18 05:04 [facility] 02/11/18 04:47 Orthostatic Vitals Standing -Extremity Use Right Arm Sitting -Blood Pressure (90/60-120/80 mm Hg) 85/52 L -Extremity Use Right Arm -Pulse Rate (60-100 beats/min) 100 Lying -Blood Pressure (90/60-120/80 mm Hg) 121/81 H -Extremity Use Right Arm -Pulse Rate (60-100 beats/min) 102 H Intake and Output for Last 24 Hours 02/09/18 02/10/18 02/11/18 23:59 23:59 23:59 Intake Total 1510 / 1510 2853 / 2853 1165 / 1165 Balance 1510 / 1510 2853 / 2853 1165 / 1165 Laboratory Tests Past 24 Hrs 02/11/18 05:17 Sodium 143 Potassium 3.6 Chloride 106 Carbon Dioxide 28.0 Anion Gap 9 BUN 32 H Creatinine 1.37 H Estim Creat Clear Calc 28.42 Est GFR (MDRD) Af Amer 48 L Est GFR (MDRD) Non-Af 39 L BUN/Creatinine Ratio 23.4 H Glucose 93 Calcium 8.7 Assessment/Plan Patient was seen and examined. I agree with the interval history, and assessment and plan as documented by physician office support assistant Eugene Haley. She denies any new complains. Denies chest pain, headache, dizziness, SOB. Orthostatic vitals remains positive. Received fluid boluses yesterday; Lasix held. Physical exam is unremarkable. Will give fluid boluses, recheck orthostatics today. Continue to hold off Lasix. Code Visit Inpatient E&M: 16203 Subs Hosp L2
[2018-02-11] MEDS: traZODone 100 MG Tablet PO (21:40)
[2018-02-11] MEDS: MELATONIN 3 MG TABLET PO (21:42)
[2018-02-12] VITALS (9 sets, daily range): BP systolic 68–126; BP diastolic 50–76; PULSE 84–107; RESP 10–17; TEMP 36.5–36.7; O2SAT 95–97
--- NOTE | 2018-02-12 08:44 | CASEMGMT ---
Social Work Call from Abi at [facility] requesting updated therapy notes for insurance authorization. PT notes sent. Will await determination. SAGAR Richey
[2018-02-12] MEDS: Aspirin E.C. 81 MG Tablet PO (09:22)
[2018-02-12] MEDS: Calcium Carb/Vitamin D 1 TABLET Tablet 2 TABLET PO (09:23)
[2018-02-12] MEDS: Carvedilol 6.25 MG Tablet PO (09:23)
[2018-02-12] MEDS: APIXABAN 2.5 MG TABLET PO (09:23)
[2018-02-12] MEDS: Amiodarone 200 MG Tablet PO (09:23)
[2018-02-12] MEDS: PARoxetine 10 MG Tablet PO (09:24)
[2018-02-12] MEDS: Montelukast 10 MG Tablet PO (09:24)
--- NOTE | 2018-02-12 11:00 | CASEMGMT ---
Social Work Received phone call from [facility] and pt has been denied authorization for SNF. SW met with pt, spouse and daughter in law and explained that pt insurance feels she is functioning too well that insurance will not cover SNF stay. Presented options including appealing decision with insurance, going to [facility] private pay and home with home health services. Pt states she does not want to appeal and does not want to pay for a nursing facility. Pt feels she can return home with home health services. Pt family is agreeable. JOANNE inquired if pt son Calin needs called and pt and daughter in law denied as dil will call him. OMID Knight and RN CM notified of pt decision to return home. Plan: Home with [facility] SAGAR Richey
--- NOTE | 2018-02-12 11:07 | CASEMGMT ---
Insurance denied pt for SNF and pt would still like to go home with [facility] per Malcolm RUBIO. Call to Lacie at [facility] and she states they will still be able to take pt at this time. Order is already in for RN, PT/OT. Pt and family( and daughter in law) updated on all at this time, voice understanding. Pt/family voice no further questions/concerns/needs at this time. Pt awaiting disposition. Albin FAULKNER CM
[2018-02-12] MEDS: Loperamide 2 MG Capsule PO (11:14)
--- NOTE | 2018-02-12 14:47 | PCM.DC.SUM ---
<Eugene Haley - Last Filed: 02/12/18 14:47> Discharge Date and Diagnosis Date of Admission: 02/05/18 Date of Discharge: 02/12/18 - Primary Discharge Diagnosis Acute hypoxic respiratory failure 2/2 Acute systolic CHF (new onset) AFib with RVR Orthostatic hypotension Mod/severe Mitral insufficiency Left lung nodule COPD/asthma Anxiety Hypokalemia CKD III - Secondary Discharge Diagnosis Chronic Problems (Last Reviewed 02/05/18 @ 02:51 by Dhaval Barclay MD) Abnormal electrocardiogram (Chronic) Secondary pulmonary arterial hypertension (Chronic) RVSP 43 mmhg per echo 09/22/2016 @ [facility] PVCs (premature ventricular contractions) (Chronic) Ascending aorta dilatation (Chronic) Nonrheumatic tricuspid valve regurgitation (Chronic) Nonrheumatic mitral valve regurgitation (Chronic) First degree AV block (Chronic) Paroxysmal atrial fibrillation (Chronic) Hospital Course and Treatment Imaging Results: RAD/Chest 1 View (Portable) IMPRESSION: New small bilateral pleural effusions with new right basilar airspace opacity. Consider a right middle and/or lower lobe pneumonia. CT/CTA Chest W/WO Contrast IMPRESSION: No pulmonary embolus or thoracic aortic dissection. 1 cm spiculated left apical lung nodule worrisome for malignancy. Recommend additional workup. Right middle lobe consolidation suggestive of pneumonia. Recommend continued follow-up until resolution to exclude a mass. Bilateral pleural effusions right greater than left. Dilatation of the main pulmonary artery suggestive of pulmonary arterial hypertension among other etiologies. Mild cardiomegaly. Groundglass lung opacities suggestive of mild vascular congestion. Left lower lobe atelectasis probably related to the left pleural effusion. Left lower lobe pneumonia is a consideration. Additional nonemergent findings as above. Echo:Interpretation Summary The estimated ejection fraction is 35-40 %. There is moderate global hypokinesis of the left ventricle. The left atrium is severely enlarged. The right atrium is moderately enlarged. Moderate (2+) mitral valve insufficiency. Mild to moderate (1-2+) tricuspid valve insufficiency. Right ventricular systolic pressure estimated to be 35 mmHg. Moderate size left pleural effusion. Pt appears to be in atrial fibrillatin. There is no comparison study available. RAD/Chest PA and Lateral IMPRESSION: Left lower lobe consolidation and effusion. COPD. Cath report: RECOMMENDATIONS LEA to better eval MR for possible MV repair. Start amiodarone for HR control and eventual DCCV in 4 weeks. Start low dose elquis 2.5mg bid in 3 days. F/u with Dr Rodriguez. LEA: Interpretation Summary The estimated ejection fraction is 35-40 %. There is moderate global hypokinesis of the left ventricle. Bubble contrast study negative for right to left interatrial shunt. Moderately severe (3+) eccentric mitral valve insufficiency. Moderate (2+) tricuspid valve insufficiency. No thrombus is detected in the left atrial appendage. Diminshed LA contraction velocities c/w atrial fibrillation. Pulmonary venous flow attenuated systolic component c/w signficant MR. Pt appears to be in atrial fibrillation. Consults: [facility] - Cardiology Operations: None Procedures: 2-D Echocardiogram, Cardiac catheterization, Transesophageal Echo Summary of Care Provided: Physical exam on day of discharge: General: Resting comfortably NAD, frail Psych: A/Ox3 anxious affect HEENT: PEARRLA AT NC Neck: Supple NT CV: Irregularly irregular, 2 out of 6 systolic murmur best heard over the right sternal border at the second intercostal space. Resp: CTA Abd: [id number] Soft NT no guarding or rigidity Ext: DP2+= no edema Skin: W/D normal turgor Lymph/Heme: No active bleeding or adenopathy Neuro: CN2-12 intact Hospital course: The patient is a 82 year old F with a history of pulmonary hypertension, tricuspid valve regurgitation, paroxysmal atrial fibrillation, first-degree AV block, who presented to the emergency room with increased shortness of breath that have been progressively worsening over the past month. She appeared to be an acute congestive heart failure as she had pleural effusions, elevated beta natruretic peptide, and a chest x-ray consistent with heart failure. She was in atrial fibrillation with rapid ventricular response. Subsequently a follow-up CTA was done which revealed groundglass opacities, mild vascular congestion, pleural effusion, and a 1 cm spiculated left apical lung nodule worrisome for malignancy that will require further workup. She did not have a PE or dissection. She was admitted to the PCU with cardiology on consult for A. fib with RVR and associated congestive heart failure and placed on IV Lasix, Cardizem drip, beta-dario. An echocardiogram was obtained which demonstrated a 35-40%, moderate global hypokinesis of the left ventricle, 2+ MVI, 1-2+ TVI, and RVSP of 35 mmHg with a moderate sized pleural effusion. Cardiology placed her on an amiodarone drip. She then underwent a heart catheterization which did not reveal any significant coronary artery disease with normal angiography, EF 45%, global hypokinesis-moderate, depressed LV systolic function. She then underwent a LEA to better assess her valves. This demonstrated moderately severe 3+ MVI. Cardiology did not feel that this warranted an emergent workup or transfer to a higher level of care at this time. She was transitioned to oral amiodarone, Coreg was decreased to 3.125, and she was placed on oral Eliquis. Lasix was discontinued as she had significant orthostatic hypotension with standing and walking. She was given several fluid boluses however did continue to have mild degree of orthostasis. She had no further breathing issues and was weaned off oxygen. She had no edema in her legs and lungs were clear on exam. She was restarted at a lower dose for discharge 20 mg daily. She will need to follow-up closely with her PCP and cardiology in 1 week. She will also take 200 mg p.o. twice daily of amiodarone, 3.125 mg of Coreg twice daily. She will have a follow-up BMP in 3 days. She was not started on an MANUEL inhibitor while here due to her questionable renal function and hypotension. As discussed above she will need to follow-up with her PCP for repeat CAT scan and have appropriate referral as directed for her suspicious pulmonary nodule that was discovered on this admission. She remained significantly weak and her family was concerned about taking her home. She was kept over the weekend to work with PT and OT and to attempt placement at shelter, she did not qualify however. She did qualify for home health care. She was discharged home in stable condition with home health care. Follow-up as above. This patient was seen by Eugene Haley PA-C under the supervision of Doctor Kishore. [] Discharge Diet: Low fat/ Low Cholesterol, 2000 mg Sodium Diet Discharge Activity: Return to Normal Activity Home Medications: Medications to take at Discharge Albuterol Sulfate [Proventil Hfa] 2 puff IH 4X/DAY PRN PRN 05/14/13 Calcium Carb/Vitamin D [Caltrate-600 With Vit D Tab] 2 tab PO DAILY 05/14/13 Montelukast [Singulair] 10 mg PO DAILY 05/14/13 Paroxetine HCl [Paxil] 10 mg PO DAILY 05/14/13 traZODone [Desyrel] 100 mg PO QHS 05/14/13 Clonazepam [Klonopin] 1 mg PO DAILY PRN PRN 09/14/16 aspirin 81 mg tablet,delayed release 81 mg PO QDAY tab 09/21/17 Beclomethasone Diprop Inhaler [Qvar 80 Mcg Inhaler] 2 puff INHALATION BID 02/05/18 Ergocalciferol [Vitamin D] 50,000 unit PO Q7D 02/05/18 Hydrocortisone [Anusol Hc] 25 mg RECTAL BID PRN PRN 02/05/18 Amiodarone HCl [Cordarone] 200 mg PO DAILY #60 tab 02/09/18 Apixaban [Eliquis] 2.5 mg PO BID #60 tab 02/09/18 Carvedilol [Coreg] 3.125 mg PO BID #60 tab 02/12/18 Furosemide [Lasix] 20 mg PO DAILY #30 tab 02/12/18 Following Prescrptions Were Given to Patient: Amiodarone HCl [Cordarone] 200 mg PO DAILY #60 tab Apixaban [Eliquis] 2.5 mg PO BID #60 tab Carvedilol [Coreg] 3.125 mg PO BID #60 tab Furosemide [Lasix] 20 mg PO DAILY #30 tab Primary Care Physician: Cielo Ribeiro MD [Primary Care Provider] - Please follow up with your Primary Care Physician in: 1-2 weeks Please Follow Up With: Lacie Abad PA When: 2 weeks Please Follow Up With: Khadijah Christianson NP-C Disposition: Home Minutes spent on discharge:: 35 Patient Condition:: Stable Medical Necessity - Tobacco Use Smoking Status: Never smoker Meaningful Use Info Meaningful Use Diagnoses (Choose all that apply): CHF - CHF MANUEL/ARB ordered at discharge?: No Reason MANUEL/ARB not ordered?: Worsening renal disease, Hypotension Documented LVEF (%): 35 <Rae Novaka - Last Filed: 02/12/18 17:29> Discharge Date and Diagnosis - Secondary Discharge Diagnosis Chronic Problems (Last Reviewed 02/05/18 @ 02:51 by Dhaval Barclay MD) Abnormal electrocardiogram (Chronic) Secondary pulmonary arterial hypertension (Chronic) RVSP 43 mmhg per echo 09/22/2016 @ [facility] PVCs (premature ventricular contractions) (Chronic) Ascending aorta dilatation (Chronic) Nonrheumatic tricuspid valve regurgitation (Chronic) Nonrheumatic mitral valve regurgitation (Chronic) First degree AV block (Chronic) Paroxysmal atrial fibrillation (Chronic) Hospital Course and Treatment Summary of Care Provided: Patient seen by Eugene Haley PA-C under my supervision. The patient is a 82 year old F with an extensive past medical history as listed above admitted by the ED with a complaint of shortness of breath which had been worsening over 1 month. He was managed for acute congestive heart failure based BN pep of on 490 and chest x-ray consistent with heart failure. She was also managed for A. fib with RVR. CT of the chest done picked up a 1 cm spiculated left apical lung nodule worrisome for malignancy. Cardiology and pulmonology were consulted. She was started on IV Lasix and Cardizem drip and echo done showed a 35-40% EF and moderate global hypokinesis of the left ventricle as well as 2+ mitral valve insufficiency in 1-2+ tricuspid valve insufficiency. ICP was 35 m of mercury with moderate sized pleural effusion. She was started on amiodarone drip and a subsequent heart catheterization did not show any significant coronary artery disease. A LEA done to better assess her valves show moderately severe 3+ mitral valve insufficiency. She was switched to oral amiodarone. Patient was noted to have significant orthostatic hypotension, likely due to overdiuresis and Lasix was held during admission. Patient remained stable and plan was for her to go to alf person's request. However patient did not qualify and so was discharged home on 02/12/2018 with home health care. At discharge, per cardiology recommendation regular was decreased to 3.125 mg twice daily. She was discharged on Lasix 20 mg daily. 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 PCP informed about patient by Eugene Haley PA-C. She is to follow with pulmonology to monitor her lung nodule. Seen and examined prior to discharge o/e: General: Alert, Oriented x3, Cooperative, No apparent distress, off oxygen HEENT: Atraumatic, PERRLA, EOMI, Normocephalic Oral: Moist Mucosa Neck: Supple Lungs: clear to auscultation. Cardiovascular: Regular rate, Regular Rhythm, Normal S1, Normal S2, No murmurs Abdomen: Bowel Sounds Present, Soft, Non Tender, Non-Distended, No Hepato-splenomegaly Extremities: Edema - Trace bilateral edema Skin: No rashes, No breakdown Musculoskeletal: No Tenderness to Palpation of Joints or Extremities Lymphatic: No Cervical, Supraclavicular, or Inguinal Adenopathy Neurological: Cranial nerves II-XII grossly intact, Neuro grossly intact Psych/Mental Status: Normal Affect, Appropriate Plan as mentioned above. Agree with Eugene Haley's assessment and plan. [] Code Visit Inpatient E&M: 28375 Disch Hosp
--- NOTE | 2018-02-12 14:54 | DS.PCM_ITS ---
<Eugene Haley - Last Filed: 02/12/18 14:47> Discharge Date and Diagnosis Date of Admission: 02/05/18 Date of Discharge: 02/12/18 - Primary Discharge Diagnosis Acute hypoxic respiratory failure 2/2 Acute systolic CHF (new onset) AFib with RVR Orthostatic hypotension Mod/severe Mitral insufficiency Left lung nodule COPD/asthma Anxiety Hypokalemia CKD III - Secondary Discharge Diagnosis Chronic Problems (Last Reviewed 02/05/18 @ 02:51 by Dhaval Barclay MD) Abnormal electrocardiogram (Chronic) Secondary pulmonary arterial hypertension (Chronic) RVSP 43 mmhg per echo 09/22/2016 @ [facility] PVCs (premature ventricular contractions) (Chronic) Ascending aorta dilatation (Chronic) Nonrheumatic tricuspid valve regurgitation (Chronic) Nonrheumatic mitral valve regurgitation (Chronic) First degree AV block (Chronic) Paroxysmal atrial fibrillation (Chronic) Hospital Course and Treatment Imaging Results: RAD/Chest 1 View (Portable) IMPRESSION: New small bilateral pleural effusions with new right basilar airspace opacity. Consider a right middle and/or lower lobe pneumonia. CT/CTA Chest W/WO Contrast IMPRESSION: No pulmonary embolus or thoracic aortic dissection. 1 cm spiculated left apical lung nodule worrisome for malignancy. Recommend additional workup. Right middle lobe consolidation suggestive of pneumonia. Recommend continued follow-up until resolution to exclude a mass. Bilateral pleural effusions right greater than left. Dilatation of the main pulmonary artery suggestive of pulmonary arterial hypertension among other etiologies. Mild cardiomegaly. Groundglass lung opacities suggestive of mild vascular congestion. Left lower lobe atelectasis probably related to the left pleural effusion. Left lower lobe pneumonia is a consideration. Additional nonemergent findings as above. Echo:Interpretation Summary The estimated ejection fraction is 35-40 %. There is moderate global hypokinesis of the left ventricle. The left atrium is severely enlarged. The right atrium is moderately enlarged. Moderate (2+) mitral valve insufficiency. Mild to moderate (1-2+) tricuspid valve insufficiency. Right ventricular systolic pressure estimated to be 35 mmHg. Moderate size left pleural effusion. Pt appears to be in atrial fibrillatin. There is no comparison study available. RAD/Chest PA and Lateral IMPRESSION: Left lower lobe consolidation and effusion. COPD. Cath report: RECOMMENDATIONS LEA to better eval MR for possible MV repair. Start amiodarone for HR control and eventual DCCV in 4 weeks. Start low dose elquis 2.5mg bid in 3 days. F/u with Dr Rodriguez. LEA: Interpretation Summary The estimated ejection fraction is 35-40 %. There is moderate global hypokinesis of the left ventricle. Bubble contrast study negative for right to left interatrial shunt. Moderately severe (3+) eccentric mitral valve insufficiency. Moderate (2+) tricuspid valve insufficiency. No thrombus is detected in the left atrial appendage. Diminshed LA contraction velocities c/w atrial fibrillation. Pulmonary venous flow attenuated systolic component c/w signficant MR. Pt appears to be in atrial fibrillation. Consults: Arzate - Cardiology Operations: None Procedures: 2-D Echocardiogram, Cardiac catheterization, Transesophageal Echo Summary of Care Provided: Physical exam on day of discharge: General: Resting comfortably NAD, frail Psych: A/Ox3 anxious affect HEENT: PEARRLA AT NC Neck: Supple NT CV: Irregularly irregular, 2 out of 6 systolic murmur best heard over the right sternal border at the second intercostal space. Resp: CTA Abd: [id number] Soft NT no guarding or rigidity Ext: DP2+= no edema Skin: W/D normal turgor Lymph/Heme: No active bleeding or adenopathy Neuro: CN2-12 intact Hospital course: The patient is a 82 year old F with a history of pulmonary hypertension, tricuspid valve regurgitation, paroxysmal atrial fibrillation, first-degree AV block, who presented to the emergency room with increased shortness of breath that have been progressively worsening over the past month. She appeared to be an acute congestive heart failure as she had pleural effusions, elevated beta natruretic peptide, and a chest x-ray consistent with heart failure. She was in atrial fibrillation with rapid ventricular response. Subsequently a follow- up CTA was done which revealed groundglass opacities, mild vascular congestion, pleural effusion, and a 1 cm spiculated left apical lung nodule worrisome for malignancy that will require further workup. She did not have a PE or dissection. She was admitted to the PCU with cardiology on consult for A. fib with RVR and associated congestive heart failure and placed on IV Lasix, Cardizem drip, beta-dario. An echocardiogram was obtained which demonstrated a 35-40%, moderate global hypokinesis of the left ventricle, 2+ MVI, 1-2+ TVI, and RVSP of 35 mmHg with a moderate sized pleural effusion. Cardiology placed her on an amiodarone drip. She then underwent a heart catheterization which did not reveal any significant coronary artery disease with normal angiography, EF 45%, global hypokinesis-moderate, depressed LV systolic function. She then underwent a LEA to better assess her valves. This demonstrated moderately severe 3+ MVI. Cardiology did not feel that this warranted an emergent workup or transfer to a higher level of care at this time. She was transitioned to oral amiodarone, Coreg was decreased to 3.125, and she was placed on oral Eliquis. Lasix was discontinued as she had significant orthostatic hypotension with standing and walking. She was given several fluid boluses however did continue to have mild degree of orthostasis. She had no further breathing issues and was weaned off oxygen. She had no edema in her legs and lungs were clear on exam. She was restarted at a lower dose for discharge 20 mg daily. She will need to follow-up closely with her PCP and cardiology in 1 week. She will also take 200 mg p.o. twice daily of amiodarone, 3.125 mg of Coreg twice daily. She will have a follow-up BMP in 3 days. She was not started on an MANUEL inhibitor while here due to her questionable renal function and hypotension. As discussed above she will need to follow-up with her PCP for repeat CAT scan and have appropriate referral as directed for her suspicious pulmonary nodule that was discovered on this admission. She remained significantly weak and her family was concerned about taking her home. She was kept over the weekend to work with PT and OT and [facility], she did not qualify however. She did qualify for home health care. She was discharged home in stable condition with home health care. Follow-up as above. This patient was seen by Eugene Haley PA-C under the supervision of Doctor Kishore. [] Discharge Diet: Low fat/ Low Cholesterol, 2000 mg Sodium Diet Discharge Activity: Return to Normal Activity Home Medications: Medications to take at Discharge Albuterol Sulfate [Proventil Hfa] 2 puff IH 4X/DAY PRN PRN 05/14/13 Calcium Carb/Vitamin D [Caltrate-600 With Vit D Tab] 2 tab PO DAILY 05/14/13 Montelukast [Singulair] 10 mg PO DAILY 05/14/13 Paroxetine HCl [Paxil] 10 mg PO DAILY 05/14/13 traZODone [Desyrel] 100 mg PO QHS 05/14/13 Clonazepam [Klonopin] 1 mg PO DAILY PRN PRN 09/14/16 aspirin 81 mg tablet,delayed release 81 mg PO QDAY tab 09/21/17 Beclomethasone Diprop Inhaler [Qvar 80 Mcg Inhaler] 2 puff INHALATION BID Ergocalciferol [Vitamin D] 50,000 unit PO Q7D 02/05/18 Hydrocortisone [Anusol Hc] 25 mg RECTAL BID PRN PRN 02/05/18 Amiodarone HCl [Cordarone] 200 mg PO DAILY #60 tab 02/09/18 Apixaban [Eliquis] 2.5 mg PO BID #60 tab 02/09/18 Carvedilol [Coreg] 3.125 mg PO BID #60 tab 02/12/18 Furosemide [Lasix] 20 mg PO DAILY #30 tab 02/12/18 Following Prescrptions Were Given to Patient: Amiodarone HCl [Cordarone] 200 mg PO DAILY #60 tab Apixaban [Eliquis] 2.5 mg PO BID #60 tab Carvedilol [Coreg] 3.125 mg PO BID #60 tab Furosemide [Lasix] 20 mg PO DAILY #30 tab Primary Care Physician: Cielo Ribeiro MD [Primary Care Provider] - Please follow up with your Primary Care Physician in: 1-2 weeks Please Follow Up With: Lacie Abad PA When: 2 weeks Please Follow Up With: Khadijah Christianson NP-C Disposition: Home Minutes spent on discharge:: 35 Patient Condition:: Stable Medical Necessity - Tobacco Use Smoking Status: Never smoker Meaningful Use Info Meaningful Use Diagnoses (Choose all that apply): CHF - CHF MANUEL/ARB ordered at discharge?: No Reason MANUEL/ARB not ordered?: Worsening renal disease, Hypotension Documented LVEF (%): 35 <Rae Novaka - Last Filed: 02/12/18 17:29> Discharge Date and Diagnosis - Secondary Discharge Diagnosis Chronic Problems (Last Reviewed 02/05/18 @ 02:51 by Dhaval Barclay MD) Abnormal electrocardiogram (Chronic) Secondary pulmonary arterial hypertension (Chronic) RVSP 43 mmhg per echo 09/22/2016 @ [facility] PVCs (premature ventricular contractions) (Chronic) Ascending aorta dilatation (Chronic) Nonrheumatic tricuspid valve regurgitation (Chronic) Nonrheumatic mitral valve regurgitation (Chronic) First degree AV block (Chronic) Paroxysmal atrial fibrillation (Chronic) Hospital Course and Treatment Summary of Care Provided: Patient seen by Eugene Haley PA-C under my supervision. The patient is a 82 year old F with an extensive past medical history as listed above admitted by the ED with a complaint of shortness of breath which had been worsening over 1 month. He was managed for acute congestive heart failure based BN pep of on 490 and chest x-ray consistent with heart failure. She was also managed for A. fib with RVR. CT of the chest done picked up a 1 cm spiculated left apical lung nodule worrisome for malignancy. Cardiology and pulmonology were consulted. She was started on IV Lasix and Cardizem drip and echo done showed a 35-40% EF and moderate global hypokinesis of the left ventricle as well as 2+ mitral valve insufficiency in 1-2+ tricuspid valve insufficiency. ICP was 35 m of mercury with moderate sized pleural effusion. She was started on amiodarone drip and a subsequent heart catheterization did not show any significant coronary artery disease. A LEA done to better assess her valves show moderately severe 3+ mitral valve insufficiency. She was switched to oral amiodarone. Patient was noted to have significant orthostatic hypotension, likely due to overdiuresis and Lasix was held during admission. Patient remained stable and plan was for her to go to [facility] person's request. However patient did not qualify and so was discharged home on 2017 with home health care. At discharge, per cardiology recommendation regular was decreased to 3.125 mg twice daily. She was discharged on Lasix 20 mg daily. She is to follow-up with her primary care doctor and behavioral health director in 1 week. PCP informed about patient by Eugene Haley PA-C. She is to follow with pulmonology to monitor her lung nodule. Seen and examined prior to discharge o/e: General: Alert, Oriented x3, Cooperative, No apparent distress, off oxygen HEENT: Atraumatic, PERRLA, EOMI, Normocephalic Oral: Moist Mucosa Neck: Supple Lungs: clear to auscultation. Cardiovascular: Regular rate, Regular Rhythm, Normal S1, Normal S2, No murmurs Abdomen: Bowel Sounds Present, Soft, Non Tender, Non-Distended, No Hepato- splenomegaly Extremities: Edema - Trace bilateral edema Skin: No rashes, No breakdown Musculoskeletal: No Tenderness to Palpation of Joints or Extremities Lymphatic: No Cervical, Supraclavicular, or Inguinal Adenopathy Neurological: Cranial nerves II-XII grossly intact, Neuro grossly intact Psych/Mental Status: Normal Affect, Appropriate Plan as mentioned above. Agree with Eugene Haley's assessment and plan. [] Code Visit Inpatient E&M: 90971 Disch Hosp
--- NOTE | 2018-02-13 15:24 | CASEMGMT ---
RN ALVERTO DC Phone call note. Intro role of CM to patient via phone. She states she has seen BILINGUAL STUDENT TUTOR today, there were questions re: amiodarone. Office was going to call Dr. Arzate to check medication prescription and call pt back to clarify. Dose on dc was 200 mg once a day. Pt states no other questions. Call back for KAUSHIK DEL TORO given if pt needs assist with medication clarification tomorrow. Richelle DOAN RN ACM
== END 2018-02-12 13:36 | disposition home health service (06) | DRG 287 ==
LOC: ED 02-05 02:09 → ICU 02-05 02:12 → PCU 02-07 07:29
PROVIDERS: Internal Medicine; Internal Medicine Cardiovascular Disease; Internal Medicine Critical Care Medicine; Physician Assistant; Admitting Provider Internal Medicine; Emergency Provider Emergency Medicine; Family Provider Internal Medicine; PCP Internal Medicine; Visit Provider Student in an Organized Health Care Education/Training Program
DX: I50.41 Acute combined systolic (congestive) and diastolic (congestive) heart failure (principal); J98.11 Atelectasis; I48.2 Chronic atrial fibrillation; E87.6 Hypokalemia; I95.1 Orthostatic hypotension; R91.1 Solitary pulmonary nodule; I27.21 Secondary pulmonary arterial hypertension; I77.810 Thoracic aortic ectasia; R06.89 Other abnormalities of breathing; J44.9 Chronic obstructive pulmonary disease, unspecified; I44.0 Atrioventricular block, first degree; N18.3 Chronic kidney disease, stage 3 (moderate); M19.90 Unspecified osteoarthritis, unspecified site; F41.9 Anxiety disorder, unspecified; M79.7 Fibromyalgia; Z79.82 Long term (current) use of aspirin; Z79.01 Long term (current) use of anticoagulants; I08.1 Rheumatic disorders of both mitral and tricuspid valves; I27.29 Other secondary pulmonary hypertension
CPT/HCPCS: 36415; 71045; 71046; 71275; 80048; 80053; 80061; 81002; 82803; 83735; 83880; 84100; 84443; 84484; 85025; 85027; 85379; 85610; 85730; 93005; 93306; 93312; 93320; 93325; 93460; 94640; 97116; 97162; 97165; 97530; 99152; 99153; 99283; J7030; J7040; J7050; Q9967; A4216; C1751; C1769; C1894; J1940; J2310

== ENCOUNTER 2018-02-15 13:13 | Outpatient (RCR) | payer MEDICARE, SELFPAY ==
[2018-02-15 13:53] LABS: Anion Gap 5 (5-15); BUN 25 mg/dL (7-18); BUN/Creat Ratio 18.7 RATIO (10-20); Calcium,Total 8.8 mg/dL (8.5-10.1); Chloride 105 mmol/L (98-107); Creatinine, Serum 1.34 mg/dL (0.55-1.02); EST Glomerular Filtration Rate 40 mL/min (>60); Est Glom Filt Rate - Afr Amer 49 mL/min (>60); Glucose 89 mg/dL (74-106); Potassium 4.1 mmol/L (3.5-5.1); Sodium Level 140 mmol/L (136-145)
== END 2018-03-16 23:59 ==
LOC: HHLAB 13:13
PROVIDERS: Family Provider Internal Medicine; PCP Internal Medicine; Visit Provider Physician Assistant
DX: I50.9 Heart failure, unspecified (principal)
CPT/HCPCS: 80048

== ENCOUNTER 2020-04-21 11:28 | Emergency (ER) | payer MEDICARE, SELFPAY ==
[2020-04-21 11:29] VITALS: BP 135/89; PULSE 85; RESP 16; TEMP 36.1; O2SAT 100; BMI 19.8
--- NOTE | 2020-04-21 11:43 | ED.DCSUM_ITS ---
History of Present Illness Chief Complaint: Laceration Informant: Patient Occurred: Today Mechanism/Context: Injury - accidentally dropped a box of cola cans on her leg at the grocery, sustained laceration as a result; was through her jeans w/o puncturing her pants. Context: Sudden Onset Timing: Continuous Quality of Pain: - - sore Location: left lower leg Current Severity: Mild Maximum Severity: Moderate Worsened by: palpation Relieved by: leaving alone Associated Symptoms: Negative for: Parasthesia, Weakness, Loss of Funtion Narrative: Patient went to urgent care to have this repaired, they put some Steri-Strips over it along with some Surgicel, but she is on Eliquis for history of A. fib and the bleeding will not stop so she presents here as directed by urgent care. - Past Medical History (1) Ascending aorta dilatation Status: Chronic (2) Nonrheumatic mitral valve regurgitation Status: Chronic (3) Nonrheumatic tricuspid valve regurgitation Status: Chronic (4) Paroxysmal atrial fibrillation Status: Chronic (5) Secondary pulmonary arterial hypertension Status: Chronic Comment: RVSP 43 mmhg per echo 09/22/2016 @ [facility] Past Medical History - Allergies and Home Meds Allergies/Adverse Reactions: Allergies No Known Allergies Allergy (Verified 04/21/20 11:29) Primary Care Physician: Cielo Ribeiro MD [Primary Care Provider] - Surgical History: - - Partial hysterectomy, cholecystectomy, tonsillectomy, right total hip arthroplasty. Smoking Status: Never smoker Review of Systems General: Denies: Chills, Fever, Sweats Musculoskeletal: Reports: Extremity Pain Skin: Reports: Wounds. Denies: Rash Neurological: Denies: Headache, Weakness, Numbness Physical Exam Vital Signs/Narrative: Vital Signs Temp Pulse Resp BP Pulse Ox 04/21/20 11:29 97 F L 85 16 135/89 H 100 Inital Vital Signs reviewed: Yes - Extremity Exam Left Tib Fib: Hematoma - associated w/ laceration to anterolateral distal right lower leg, above ankle. no bony tenderness. laceration is full-thickness, into SQ tissue, 8cm curvilinear lateral/horizontal, clean-appearing, with profuse venous bleeding through pressure dressing and surgicel, worse after wound dressing taken down. General: Well nourished, Well developed, - - NAD. well-appearing. Head: Normocephalic, Atraumatic Skin: No rash, Trauma - see above. Neurological: Alert, Oriented x3, Cranial nerves II-XII grossly intact, Normal Strength, Normal Sensation Psychological: Normal affect, Normal Mood Diagnostic/Tx/Re-eval - Medical Decision Making With injecting lidocaine with epinephrine locally 8 cc, good hemostasis was obtained. This is a deep wound, and I do not think placing Steri-Strips is appropriate. They were all removed, and the wound was repaired. Given its depth, and inability to fully close the wound, it is still open slightly on some of the edges, but not into the deepest part of the wound, and the fact that she is on prednisone, I will put her on prophylactic antibiotics. We discussed signs and symptoms of infection and reasons to return to the ER. Otherwise she is following up with wound care. Procedures - Lacerations left lower leg Length: 8 cm Depth: Sub Q Shape: curvilinear Prep: Sterile Conditions, Chlorhexadine Laceration repair: Irrigated, Skin sutures Irrigated (ml): 150 Number of Sutures/Fly: 13 Suture Information: Ethilon, Simple, 4-0 Comment: Very difficult wound to repair due to tension from swelling/hematoma/bleeding, and very thin skin. Multiple sutures were placed to try to distribute the forces evenly to minimize tearing, which still occurred. Attempted closed as best possible, but impossible to oppose skin edges as they were prior to the laceration due to the above and tearing. ED Disposition - Plan for ED Patient: Disposition: Home or Assisted Living Diagnosis: Laceration of left lower leg Instructions: ED Laceration All Closures Prescriptions: Cephalexin [Keflex] 500 mg PO TID 7 Days #21 cap Transmission Status: Pending to [facility]/pharmacy #[id number] Referrals: Cielo Ribeiro MD [Primary Care Provider] - 5-7 Days (and/or wound care)
[2020-04-21] MEDS: BACITRACIN 15 GM Tube 1 APPLIC TOPICAL (14:30)
== END 2020-04-21 14:30 | disposition home or self-care (01) ==
PROVIDERS: Emergency Provider Emergency Medicine; PCP Internal Medicine
DX: S81.812A Laceration without foreign body, left lower leg, initial encounter (principal); I48.0 Paroxysmal atrial fibrillation; X58.XXXA Exposure to other specified factors, initial encounter; Z79.01 Long term (current) use of anticoagulants; Z79.82 Long term (current) use of aspirin
CPT/HCPCS: 12004; 99283

== ENCOUNTER 2020-08-29 17:32 | Emergency (ER) | payer MEDICARE, SELFPAY ==
[2020-08-29 17:33] VITALS: BP 111/81; PULSE 112; RESP 20; TEMP 36.8; O2SAT 97; BMI 20.3
--- NOTE | 2020-08-29 17:51 | EKG12_ITS ---
Test Reason : TIRED Blood Pressure : / mmHG Vent. Rate : 083 BPM Atrial Rate : 083 BPM P-R Int : 280 ms QRS Dur : 096 ms QT Int : 428 ms P-R-T Axes : 086 -65 049 degrees QTc Int : 502 ms Sinus rhythm with sinus arrhythmia with 1st degree A-V block Incomplete right bundle branch block Left anterior fascicular block Nonspecific ST abnormality Prolonged QT Abnormal ECG Confirmed by RICK REYES, YAJAIRA ([id number]), website/blog editor SHREYAS MATTHEWS ([id number]) on 08/31/2020 11:56:37 A M Referred By: SAM Confirmed By:KAIT CABRERA MD
--- NOTE | 2020-08-29 17:52 | ED.DCSUM_ITS ---
History of Present Illness Chief Complaint: General Illness Detail of Chief Complaint: Difficulty sleeping Informant: Patient Onset: Days Narrative: Patient present secondary to difficulty sleeping. She reportedly takes trazodone on a regular basis to help her sleep at night. For the past 1 week she has had difficulty sleeping more than just a few hours at night. She tried Tylenol PM as well as melatonin recently without any improvement. Patient presents today that she does feel like she is aching all over and feels very tired but she cannot sleep. She has an appointment to see a sleep medicine doctor next week. - Past Medical History (1) CHF (congestive heart failure) Status: Chronic (2) Paroxysmal atrial fibrillation Status: Chronic (3) Secondary pulmonary arterial hypertension Status: Chronic Comment: RVSP 43 mmhg per echo 09/22/2016 @ [facility] Past Medical History - Allergies and Home Meds Allergies/Adverse Reactions: Allergies No Known Allergies Allergy (Verified 08/29/20 17:33) Primary Care Physician: Cielo Ribeiro MD [Primary Care Provider] - Prior records reviewed: Yes Surgical History: - - Partial hysterectomy, cholecystectomy, tonsillectomy, right total hip arthroplasty. Lives: Alone Smoking Status: Never smoker Review of Systems General: Denies: Chills, Fever Eyes: Denies: Visual changes - bilaterally ENT: Denies: Bilateral ear pain Cardiovascular: Denies: Chest pain Respiratory: Denies: Dyspnea, Cough Gastrointestinal: Denies: Abdominal pain Genitourinary: Denies: Dysuria Musculoskeletal: Reports: Myalgias. Denies: Extremity Pain Skin: Denies: Rash Neurological: Denies: Headache Hematologic: Denies: Easy bruising, Easy bleeding Allergy: Denies: Uticaria Physical Exam Vital Signs/Narrative: Vital Signs Temp Pulse Resp BP Pulse Ox 08/29/20 17:33 98.2 F 112 H 20 H 111/81 H 97 Inital Vital Signs reviewed: Yes General: Well nourished, Well developed Head: Normocephalic ENT: Moist mucous membranes Neck: Supple Cardiovascular: Regular rate, Regular rhythm Respiratory: No distress, CTA bilaterally Abdomen: Soft, Nontender Extremities: Nontender Skin: Normal color Neurological: Alert, Oriented x3, Normal Strength, Normal Sensation Psychological: - - Anxious Diagnostic/Tx/Re-eval Laboratory Results 08/29/20 08/29/20 08/29/20 17:55 17:55 17:55 WBC 5.6 RBC 4.09 L Hgb 11.4 L Hct 36.1 L MCV 88.3 MCH 27.9 MCHC 31.6 L RDW Std Deviation 44.9 H RDW Coeff of Carey 13.9 Plt Count 237 MPV 9.8 Immature Gran % (Auto) 0.400 Neut % (Auto) 81.3 H Lymph % (Auto) 12.4 L [place] % (Auto) 5.4 Eos % (Auto) 0.0 Baso % (Auto) 0.5 Absolute Neuts (auto) 4.5 Absolute Lymphs (auto) 0.69 L Nucleated RBC % 0 Sodium 138 Potassium 4.0 Chloride 106 Carbon Dioxide 24.0 Anion Gap 8 BUN 28 H Creatinine 1.50 H Estim Creat Clear Calc 26.45 Est GFR (MDRD) Af Amer 43 L Est GFR (MDRD) Non-Af 35 L BUN/Creatinine Ratio 18.7 Glucose 113 H Calcium 9.0 Troponin I < 0.015 Urine Color Urine Clarity Urine pH Ur Specific [place] Urine Protein Urine Glucose (UA) Urine Ketones Urine Occult Blood Urine Nitrite Urine Bilirubin Urine Urobilinogen Ur Leukocyte Esterase Urine RBC Urine WBC Ur Squamous Epith Cells Urine Bacteria Urine Mucus 08/29/20 18:40 WBC RBC Hgb Hct MCV MCH MCHC RDW Std Deviation RDW Coeff of Carey Plt Count MPV Immature Gran % (Auto) Neut % (Auto) Lymph % (Auto) [place] % (Auto) Eos % (Auto) Baso % (Auto) Absolute Neuts (auto) Absolute Lymphs (auto) Nucleated RBC % Sodium Potassium Chloride Carbon Dioxide Anion Gap BUN Creatinine Estim Creat Clear Calc Est GFR (MDRD) Af Amer Est GFR (MDRD) Non-Af BUN/Creatinine Ratio Glucose Calcium Troponin I Urine Color Yellow Urine Clarity Clear Urine pH 7.0 Ur Specific [place] 1.010 Urine Protein Negative Urine Glucose (UA) Normal Urine Ketones Negative Urine Occult Blood 10 H Urine Nitrite Negative Urine Bilirubin Negative Urine Urobilinogen Normal Ur Leukocyte Esterase Negative Urine RBC 0 SEEN Urine WBC 0 SEEN Ur Squamous Epith Cells 0-5 SEEN Urine Bacteria 0 SEEN Urine Mucus 0 SEEN - EKG Initial EKG Interpretation: Sinus Rhythm - Sinus 83 with no acute ischemia. - Medical Decision Making Patient was placed on nuclear monitoring technician with no arrhythmia noted on the emergency room. She was given 0.5 mg IV Ativan. On repeat evaluation she states that she is more relaxed and resting comfortably but has not fallen asleep. Test results are discussed with her. She is reassured that blood work and EKG are otherwise unremarkable. Patient does have clonazepam listed on her medication list as well but states she is no longer taking this. I will write her a short course of Ativan to help her through the weekend and she has a follow-up appointment scheduled on Monday. ED Disposition - Plan for ED Patient: Disposition: Home or Assisted Living Diagnosis: Insomnia Instructions: ED Insomnia Prescriptions: Lorazepam [Ativan] 0.5 mg PO TID PRN #10 tablet PRN Reason: Insomnia Transmission Status: Sent to [id number] Referrals: Cielo Ribeiro MD [Primary Care Provider] - Additional Instructions: Follow-up with Dr Mccarthy on Monday as scheduled.
[2020-08-29] MEDS: LORazepam 2 MG/ML Syringe 0.5 MG IV (17:57)
[2020-08-29 18:17] LABS: Absolute Lymphocyte Count 0.69 X10^3/uL (0.83-4.51); Absolute Neutrophil Count 4.5 X10^3/uL (2.0-7.7); Basophil# 0.03 X10^3/uL; Basophil% 0.5 % (0-1); Hematocrit 36.1 % (37-47); Hemoglobin 11.4 g/dL (12.0-15.0); Lymphocyte # 0.69 X10^3/ul (4.0); Lymphocyte % 12.4 % (19-41); Mean Corp Hgb Conc 31.6 g/dL (32-36); Mean Corpuscular Hgb 27.9 pg (27.0-32.0); Mean Corpuscular Volume 88.3 fL (81-99); Mean Platelet Vol. 9.8 fl (6.2-12.0); Monocyte% 5.4 % (0-10); NRBC Flagged by Analyzer 0 % (0-5); Neutrophil # 4.53 X10^3/uL (2.7-7.7); Neutrophil % 81.3 % (47-70); Platelet Count 237 K/mm3 (150-450); RBC Distribution Width CV 13.9 % (11.6-14.6); RBC Distribution Width SD 44.9 fl (35.1-43.9); Red Blood Count 4.09 M/mm3 (4.2-5.4); White Blood Count 5.6 K/mm3 (4.4-11.0)
[2020-08-29 18:19] LABS: Anion Gap 8 (5-15); BUN 28 mg/dL (7-18); BUN/Creat Ratio 18.7 RATIO (10-20); Chloride 106 mmol/L (98-107); EST Glomerular Filtration Rate 35 mL/min (>60); Est Glom Filt Rate - Afr Amer 43 mL/min (>60); Estimated Creatinine Clearance 26.45 ml/min; Glucose 113 mg/dL (74-106); Sodium Level 138 mmol/L (136-145)
[2020-08-29 18:46] LABS: Bacteria 0 SEEN /hpf (None Seen); Mucous, Urine 0 SEEN /hpf (<or=2+); Red Blood Cells-Urine 0 SEEN /hpf (0-5); White Blood Cells 0 SEEN /hpf (0-5)
[2020-08-29 18:48] LABS: Color, Urine Yellow (Yellow); Glucose, Dipstick Normal (Normal); Ketone-Dipstick Negative (Negative); Leukocyte Esterase-Dipstick Negative /ul (Negative); Nitrite-Dipstick Negative (Negative); Occult Blood-Urine 10 /ul (Negative); Protein-Dipstick Negative (Negative); Urine Bilirubin Dipstick Negative (Negative); Urine Clarity Clear (Clear); Urine Urobilinogen Normal (Normal)
[2020-08-29 18:54] LABS: Squamous Epithelial Cells - UA 0-5 SEEN /hpf (5-10)
[2020-08-29 19:37] VITALS: BP 136/80; PULSE 106; RESP 15; O2SAT 97
[2020-08-29 19:46] VITALS: BP 136/80; PULSE 106; RESP 16; O2SAT 98
[2020-08-29 20:24] VITALS: BP 137/93; PULSE 106; RESP 16; O2SAT 96
== END 2020-08-29 20:25 | disposition home or self-care (01) ==
PROVIDERS: Emergency Provider Emergency Medicine; PCP Internal Medicine
DX: G47.00 Insomnia, unspecified (principal); I48.0 Paroxysmal atrial fibrillation; I50.9 Heart failure, unspecified; Z79.82 Long term (current) use of aspirin; Z90.49 Acquired absence of other specified parts of digestive tract
CPT/HCPCS: 80048; 81001; 84484; 85025; 93005; 96374; 99284; J7040; A4216

== ENCOUNTER 2021-02-13 09:11 | Emergency (ER) | payer MEDICARE, SELFPAY ==
[2021-02-13 09:12] VITALS: BP 131/74; PULSE 104; RESP 18; TEMP 37.6; O2SAT 100; BMI 21.9
--- NOTE | 2021-02-13 09:29 | EKG12_ITS ---
Test Reason : Blood Pressure : / mmHG Vent. Rate : 100 BPM Atrial Rate : 084 BPM P-R Int : 000 ms QRS Dur : 096 ms QT Int : 384 ms P-R-T Axes : 000 -58 080 degrees QTc Int : 495 ms Atrial fibrillation Left anterior fascicular block Nonspecific ST and T wave abnormality Prolonged QT Abnormal ECG Confirmed by DAVIDA REYES, RUTHANN ([id number]), state editor SHREYAS MATTHEWS ([id number]) on 02/18/2021 12:59:42 PM Referred By: SAM Confirmed By:RUTHANN HIGUERA MD
--- NOTE | 2021-02-13 09:29 | RAD_ITS ---
STUDY: X-RAY CHEST REASON FOR EXAM: Female, 85 years old. back pain TECHNIQUE: PA and lateral views of the chest. COMPARISON: 02/06/2018 FINDINGS: Sternotomy wires are midline. The alveolar prosthesis are in place. There is hyperinflation of the lungs consistent with chronic obstructive lung disease (COPD). Mild airspace disease overlies the right lower lobe medial segment with left costophrenic angle blunting and small effusion not excluded. There is no demonstrated pleural abnormality. There is moderate cardiac enlargement. Normal mediastinum and valarie. Normal visualized pulmonary arteries. Normal visualized aortic arch and descending thoracic aorta. Normal visualized thoracic spine. Normal visualized ribs, clavicles, and shoulders. There is no demonstrated abnormality of the visualized soft tissue structures of the upper abdomen. RAD/Chest 1 View (Portable) IMPRESSION: COPD related changes with right lower lobe medial segment airspace disease and minimal layering left effusion. Electronically Signed: Kaleb Tran DO at 10:09 EDT , Service support ,
[2021-02-13] MEDS: Lidocaine 5% Patch 1 PATCH TOPICAL (09:58)
[2021-02-13] MEDS: cycloBENZAPRine HCl 10 MG Tablet PO (09:58)
--- NOTE | 2021-02-13 10:25 | EX.ED.DYSGE1 ---
HPI History of Present Illness Chief Complaint: General Illness Informant: patient Onset/Context/Timing Onset: Weeks Context: Gradual Onset Current Severity: Mild Maximum Severity: Moderate Narrative Narrative: Patient presents with aching sensation in her upper body as well as difficulty sleeping. Patient ports a history of polymyalgia and follows with a nuclear technologist. She has had increased aches in bilateral arms, right posterior neck, and right posterior shoulder. She called her nuclear technologist who recently increased her prednisone from 4 mg to 6 mg. She had blood work done yesterday at the [facility]. Patient states she continues to have pain and has had increasing problems sleeping. She used to be on medication for insomnia but states she stopped all of that because none of it was working. [facility] Medical History (Updated 02/13/21 @ 12:[address] Halie Pedroza MD) Arthritis Ascending aorta dilatation Asthma Fibromyalgia First degree AV block Nonrheumatic mitral valve regurgitation Nonrheumatic tricuspid valve regurgitation Paroxysmal atrial fibrillation PVCs (premature ventricular contractions) Secondary pulmonary arterial hypertension Home Medications albuterol sulfate 2 puff IH 4X/DAY PRN PRN 05/14/13 [History Last Taken 05/27/13 05:55] montelukast 10 mg PO DAILY 05/14/13 [History Last Taken Unknown] aspirin 81 mg tablet,delayed release 81 mg PO QDAY tab 09/21/17 [History Last Taken Unknown] apixaban 2.5 mg PO BID 08/29/20 [History Last Taken Unknown] beclomethasone dipropionate 2 puff INHALATION BID 08/29/20 [History Last Taken Unknown] biotin 10,000 mcg PO BID 08/29/20 [History Last Taken Unknown] furosemide 20 mg PO DAILY 08/29/20 [History Last Taken Unknown] metoprolol succinate 25 mg PO DAILY 08/29/20 [History Last Taken Unknown] omeprazole 40 mg PO DAILY 08/29/20 [History Last Taken Unknown] prednisone 5 mg PO DAILY 08/29/20 [History Last Taken Unknown] trazodone 50 mg PO QHS 08/29/20 [History Last Taken Unknown] lorazepam [Ativan] 0.5 mg PO BID PRN #10 tab 02/13/21 [Rx Last Taken Unknown] Allergy/AdvReac Type Severity Reaction Status Date / Time No Known Allergies Allergy Verified 02/13/21 09:12 Family History Unknown No problems noted. Surgical History History of bilateral hip replacements History of hysterectomy History of tonsillectomy Hx of cholecystectomy Social History Smoking Status: Never smoker ROS ROS ED Constitutional Constitutional ED: Denies chills or fever(s) Eyes Eyes: Denies change in vision ENT ENT ED: Denies sore throat Cardiovascular Cardiovascular: Denies chest pain Respiratory/Chest Respiratory/Chest: Denies cough or dyspnea Gastrointestinal Gastrointestinal: Denies abdominal pain, diarrhea, nausea or vomiting Genitourinary Genitourinary ED: Denies dysuria Musculoskeletal Musculoskeletal: Reports back pain, myalgias and neck pain Integumentary Denies rash Neurologic Neurologic: Denies headache(s) or weakness Psychiatric Psychiatric: Denies anxiety or depression Endocrine Endocrinology: Denies polydipsia or polyuria Allergic/Immunologic Allergic/Immunologic ED: Denies urticaria EXAM Physical Exam Const Vital Signs: 02/13/21 09:12 02/13/21 11:16 02/13/21 12:41 Temperature 99.7 F H Temperature Source Temporal Pulse Rate 104 H 100 101 H Respiratory Rate 18 21 H 21 H Blood Pressure 131/74 H 139/78 H 136/74 H Blood Pressure Mean 93 98 Pulse Ox 100 97 96 Oxygen Delivery Method Room Air Room Air Positive well nourished and well developed General Appearance ED: well developed HEENT Reports normocephalic and head/scalp atraumatic Eyes PERRL and EOMs intact bilaterally Neck supple Chest Wall inspection of chest normal and palpation of chest normal Resp normal respiratory effort and clear to auscultation bilaterally Cardio regular rate and regular rhythm GI normal to inspection, nondistended, normoactive bowel sounds and non-tender Palpation: soft Back/Spine Back/Spine Narrative: Reproducible tenderness in the upper thoracic paraspinals on the right. No overlying skin change. Extremity normal to inspection Extremity Narrative: Diffuse muscle tenderness throughout the upper and lower arms bilaterally. No edema or overlying skin change. Strong and equal distal pulses. Neuro oriented x3 and no sensory deficits noted Sensorium / Orientation: alert Motor Exam: strength 5/5 throughout Psych mental status grossly normal Skin no rashes or lesions noted MDM MDM MDM Narrative Medical decision making narrative: Patient's lab work from [facility] yesterday was reviewed. CBC, chemistry studies, sed rate, CRP, TSH reviewed and unremarkable. CPK is added today. Patient is given a Lidoderm patch as well as a dose of Flexeril. Lab Data Attestation: I reviewed the patient's lab results. Labs: Laboratory Results - last 24 hr 02/13/21 09:45 Total Creatine Kinase 48 Radiography Chest X-Ray - ED: 1 View, Read by ED Physician and Chronic Changes Diagnostic Testing: Radiology Impression Chest X-Ray 02/13/21 09:29 IMPRESSION: COPD related changes with right lower lobe medial segment airspace disease and minimal layering left effusion. Electronically Signed: Kaleb Tran DO at 10:09 EDT , Service support , EKG Initial EKG: Attestation: I personally reviewed and interpreted this EKG as follows: Interpretation: Atrial Fibrillation (A. fib at 100. No acute ischemia.) Treatment and Re-Evaluation Comments:: On repeat evaluation patient reported only minimal improvement in her symptoms. She states that when she was here in August she got Ativan and that really seemed to help her symptoms. I did review that note. She was given 0.5 mg of IV Ativan here and on repeat evaluation states she is improving. She will be given another short-term prescription for Ativan to use at home to help her relax and sleep. She will call her nuclear technologist early next week to advise him or her of her current symptoms. Discharge Plan Triage Chief Complaint: General Illness ED Provider: Halie Pedroza Dx/Rx/DC Orders Clinical Impression: Myalgia, Insomnia Instructions: ED Insomnia, ED Myalgias Prescriptions: New lorazepam [Ativan] 0.5 mg tablet 0.5 mg PO BID PRN (Reason: anxiety) Qty: 10 RF: 0 No Action aspirin [Adult Low Dose Aspirin] 81 mg tablet,delayed release (DR/EC) 81 mg PO QDAY RF: 0 montelukast 10 MG tablet 10 mg PO DAILY RF: 0 albuterol sulfate 6.7 GM HFA aerosol inhaler 2 puff IH 4X/DAY PRN PRN (Reason: Sob &/Or Wheezing) RF: 0 trazodone 50 MG tablet 50 mg PO QHS RF: 0 omeprazole 40 MG capsule,delayed release(DR/EC) 40 mg PO DAILY RF: 0 prednisone 1 MG tablet 5 mg PO DAILY RF: 0 biotin 10,000 MCG capsule 10,000 mcg PO BID RF: 0 furosemide 20 MG tablet 20 mg PO DAILY RF: 0 metoprolol succinate 25 MG tablet extended release 24 hr 25 mg PO DAILY RF: 0 apixaban 2.5 MG tablet 2.5 mg PO BID RF: 0 beclomethasone dipropionate 1 PUFF inhaler 2 puff INHALATION BID RF: 0 Primary Care Provider: Cielo Ribeiro Referrals: Cielo Ribeiro MD [Primary Care Provider] - 5-7 Days Disposition Disposition: Home, Self Care Discharge Date/Time: 02/13/21 12:41
[2021-02-13 11:01] LABS: CPK Total, Creatine Kinase 48 U/L (26-192)
[2021-02-13 11:16] VITALS: BP 139/78; PULSE 100; RESP 21; O2SAT 97
[2021-02-13] MEDS: LORazepam 2 MG/ML Syringe 0.5 MG IV (11:33)
[2021-02-13 12:41] VITALS: BP 136/74; PULSE 101; RESP 21; O2SAT 96
== END 2021-02-13 12:41 | disposition home or self-care (01) ==
PROVIDERS: Emergency Provider Emergency Medicine; PCP Internal Medicine
DX: M79.10 Myalgia, unspecified site (principal); G47.00 Insomnia, unspecified; I48.0 Paroxysmal atrial fibrillation; J44.9 Chronic obstructive pulmonary disease, unspecified; M19.90 Unspecified osteoarthritis, unspecified site; Z79.52 Long term (current) use of systemic steroids; Z79.82 Long term (current) use of aspirin; Z79.899 Other long term (current) drug therapy
CPT/HCPCS: 71045; 82550; 93005; 96361; 96374; 99284; J7040; A4216

== ENCOUNTER 2021-09-13 15:33 | Emergency (ER) | payer MEDICARE, SELFPAY ==
[2021-09-13 15:34] VITALS: BP 141/77; PULSE 84; RESP 16; TEMP 37.1; O2SAT 98; BMI 20.9
--- NOTE | 2021-09-13 16:11 | EDS_ITS ---
HPI History of Present Illness Chief Complaint: Lower Extremity Injury Detail of Chief Complaint: Migratory intermittent left leg pain Informant: patient Occured/Mechanism Comment: Atraumatic intermittent migratory left leg pain Onset/Context/Timing Context: Sudden Onset Timing: Intermittent Quality of Pain: Dull and Aching Location: Location and quality varies left leg Current Severity: Mild Maximum Severity: Severe Worsened by: Walking Relieved by: Eventually rest Associated Symptoms Associated Symptoms: Negative for Parasthesia, Weakness and Loss of Funtion Narrative Narrative: Patient 85-year-old woman on prednisone for polymyalgia rheumatica who was sent to the emergency department by her laboratory equipment installer for evaluation of her intermittent migratory left leg pain. At times the pain is posterior. At times the pain is anterior. She denies history of trauma. She denies fever, chills night sweats. She denies weight gain or weight loss. She has had hair loss. She denies heat or cold intolerance. She denies history of cancer. She denies paresthesia, anesthesia or motor weakness. She denies swelling of her knee or ankle. She did not have this symptom when she saw her laboratory equipment installer last month. There is no history of VTE. She is status post valve replacement at [facility]. She also has history of atrial fibrillation. She is on no anticoagulant. Tetanus Immunization: 5-10 years Prior similar symptoms: No Recent Illness/Hospitalization: Yes [facility] Medical History (Updated 09/13/21 @ 17:[address] Galileo Kay MD) Arthritis Ascending aorta dilatation Asthma Fibromyalgia First degree AV block Nonrheumatic mitral valve regurgitation Nonrheumatic tricuspid valve regurgitation Paroxysmal atrial fibrillation PVCs (premature ventricular contractions) Secondary pulmonary arterial hypertension Home Medications albuterol sulfate 2 puff IH 4X/DAY PRN PRN 05/14/13 [History Last Taken 05/27/13 05:55] montelukast 10 mg PO DAILY 05/14/13 [History Last Taken Unknown] aspirin 81 mg tablet,delayed release 81 mg PO QDAY tab 09/21/17 [History Last Taken Unknown] apixaban 2.5 mg PO BID 08/29/20 [History Last Taken Unknown] beclomethasone dipropionate 2 puff INHALATION BID 08/29/20 [History Last Taken Unknown] biotin 10,000 mcg PO BID 08/29/20 [History Last Taken Unknown] furosemide 20 mg PO DAILY 08/29/20 [History Last Taken Unknown] metoprolol succinate 25 mg PO DAILY 08/29/20 [History Last Taken Unknown] omeprazole 40 mg PO DAILY 08/29/20 [History Last Taken Unknown] prednisone 5 mg PO DAILY 08/29/20 [History Last Taken Unknown] trazodone 50 mg PO QHS 08/29/20 [History Last Taken Unknown] lorazepam [Ativan] 0.5 mg PO BID PRN #10 tab 02/13/21 [Rx Last Taken Unknown] Allergy/AdvReac Type Severity Reaction Status Date / Time No Known Allergies Allergy Verified 02/13/21 09:12 Family History Unknown No problems noted. Surgical History History of bilateral hip replacements History of hysterectomy History of tonsillectomy Hx of cholecystectomy Social History (Updated 09/13/21 @ 16:[address] Galileo Kay MD) household members: none Smoking Status: Never smoker substance use type: does not use ROS ROS ED Constitutional Constitutional ED: Denies chills, fever(s), subjective, sweats or weight loss Eyes Eyes: Denies blurry vision, change in vision or diplopia ENT ENT ED: Reports other Details: Hair loss for the past month ; Denies ear pain, rhinorrhea or sore throat Cardiovascular Cardiovascular: Denies chest pain, orthopnea, palpitations, paroxysmal nocturnal dyspnea or racing heartbeat Respiratory/Chest Respiratory/Chest: Denies cough, dyspnea, dyspnea on exertion, orthopnea, paroxysmal nocturnal dyspnea or sputum Gastrointestinal Gastrointestinal: Denies abdominal pain, diarrhea, nausea or vomiting Genitourinary Genitourinary ED: Denies dysuria, hematuria or urinary frequency Musculoskeletal Musculoskeletal: Reports other Details: Per HPI ; Denies arthralgias, back pain, myalgias or neck pain Integumentary Denies Abrasions or rash Neurologic Neurologic: Denies headache(s), paresthesias or weakness Endocrine Endocrinology: Denies cold intolerance, excessive sweating, fatigue, heat intolerance, palpitations, polydipsia, polyphagia or polyuria Hematologic/Lymphatic Hematologic/Lymphatic: Denies easy bleeding or easy bruising EXAM Physical Exam Const Vital Signs: 09/13/21 15:34 Temperature 98.7 F Temperature Source Temporal Pulse Rate 84 Respiratory Rate 16 Blood Pressure 141/77 H Blood Pressure Mean 98 Pulse Ox 98 Oxygen Delivery Method Room Air Positive well nourished and well developed General Appearance ED: well developed and NAD HEENT normocephalic and atraumatic Eyes PERRL Eyes Narrative: Extract muscle intact. Sclerae anicteric. Conjunctive is pink. Neck full ROM and supple Thyroid: Negative for tender Resp normal respiratory effort and clear to auscultation bilaterally Cardio regular rate, regular rhythm, S1 normal heart sound, S2 normal heart sound and no murmurs Back/Spine no CVA tenderness Lumbar Spine / Lower Back: Negative for lumbar spinal tenderness Extremity normal to inspection and full ROM Extremity Narrative: DP and PT pulse are palpable. There is no joint effusion involving the left knee or ankle. There is no evidence of trauma to the left lower extremity. General Extremety ED: Negative for cyanosis, edema or weight-bearing difficulty General Extremity: Negative for cyanosis, edema or weight-bearing difficulty Neuro oriented x3, CN's II-XII intact bilaterally, moves all extremities and no sensory deficits noted Sensorium / Orientation: alert Motor Exam: strength 5/5 throughout Plantar Reflex: Downgoing: bilateral Psych mental status grossly normal Skin no wounds Lesions: no lesions Rashes: no rashes Trauma: Negative for abrasion MDM MDM MDM Narrative Medical decision making narrative: This may represent pain due to her rheumatologic disease. Will obtain appropriate blood work to assess her symptoms. Clinically there is no neurovascular findings or based on history there is no concern for neurovascular problems. Lab Data Attestation: I reviewed the patient's lab results. Lab results narrative: CBC reveals mild anemia with normal indices. Comprehensive metabolic panel reveals slight elevation in creatinine of 1.15 with a GFR of 58. ESR is normal. Patient was informed the cause of her pain is unknown. Recommend following up with her laboratory equipment installer. Labs: Laboratory Results - last 24 hr 09/13/21 09/13/21 16:40 16:40 WBC 6.0 RBC 4.07 L Hgb 11.8 L Hct 35.8 L MCV 88.0 MCH 29.0 MCHC 33.0 RDW Std Deviation 45.4 H RDW Coeff of Carey 14.2 Plt Count 223 MPV 9.9 Immature Gran % (Auto) 0.300 Neut % (Auto) 78.6 H Lymph % (Auto) 13.6 L Hand % (Auto) 6.5 Eos % (Auto) 0.3 Baso % (Auto) 0.7 Absolute Neuts (auto) 4.7 Absolute Lymphs (auto) 0.81 L Nucleated RBC % 0 ESR 10 Sodium 138 Potassium 3.9 Chloride 108 H Carbon Dioxide 26.0 Anion Gap 4 L BUN 23 H Creatinine 1.15 H Estim Creat Clear Calc 33.90 Est GFR (MDRD) Af Amer 58 L Est GFR (MDRD) Non-Af 48 L BUN/Creatinine Ratio 20.0 Glucose 102 Calcium 9.5 Total Bilirubin 0.90 AST 19 ALT 26 Alkaline Phosphatase 60 Total Creatine Kinase 58 Total Protein 6.8 Albumin 3.8 Globulin 3.0 Albumin/Globulin Ratio 1.3 Discharge Plan Triage Chief Complaint: Lower Extremity Injury ED Provider: Galileo Kay Dx/Rx/DC Orders Clinical Impression: Pain in left lower leg Instructions: ED Pain, Acute, Uncertain Cause Prescriptions: No Action aspirin [Adult Low Dose Aspirin] 81 mg tablet,delayed release (DR/EC) 81 mg PO QDAY RF: 0 montelukast 10 MG tablet 10 mg PO DAILY RF: 0 albuterol sulfate 6.7 GM HFA aerosol inhaler 2 puff IH 4X/DAY PRN PRN (Reason: Sob &/Or Wheezing) RF: 0 trazodone 50 MG tablet 50 mg PO QHS RF: 0 omeprazole 40 MG capsule,delayed release(DR/EC) 40 mg PO DAILY RF: 0 prednisone 1 MG tablet 5 mg PO DAILY RF: 0 biotin 10,000 MCG capsule 10,000 mcg PO BID RF: 0 furosemide 20 MG tablet 20 mg PO DAILY RF: 0 metoprolol succinate 25 MG tablet extended release 24 hr 25 mg PO DAILY RF: 0 apixaban 2.5 MG tablet 2.5 mg PO BID RF: 0 beclomethasone dipropionate 1 PUFF inhaler 2 puff INHALATION BID RF: 0 lorazepam [Ativan] 0.5 mg tablet 0.5 mg PO BID PRN (Reason: anxiety) Qty: 10 RF: 0 Primary Care Provider: Cielo Ribeiro Referrals: Cielo Ribeiro MD [Primary Care Provider] - Activity Restrictions/Additional Instructions: Recommend following up with your laboratory equipment installer. The cause of your pain is unknown. Disposition Disposition: Home, Self Care
[2021-09-13 16:56] LABS: Basophil% 0.7 % (0-1); Eosinophils% 0.3 % (0-5); Hematocrit 35.8 % (37-47); Hemoglobin 11.8 g/dL (12.0-15.0); Lymphocyte % 13.6 % (19-41); Mean Platelet Vol. 9.9 fl (6.2-12.0); Monocyte% 6.5 % (0-10); Neutrophil % 78.6 % (47-70); Platelet Count 223 K/mm3 (150-450); RBC Distribution Width CV 14.2 % (11.6-14.6); RBC Distribution Width SD 45.4 fl (35.1-43.9); Red Blood Count 4.07 M/mm3 (4.2-5.4)
[2021-09-13 16:57] LABS: Absolute Lymphocyte Count 0.81 X10^3/uL (0.83-4.51); Absolute Neutrophil Count 4.7 X10^3/uL (2.0-7.7); Basophil# 0.04 X10^3/uL; Eosinophil# 0.02 X10^3/uL; Lymphocyte # 0.81 X10^3/ul (0.83-4.51); Monocyte# 0.39 X10^3/uL; NRBC Flagged by Analyzer 0 % (0-5); Neutrophil # 4.69 X10^3/uL (2.7-7.7)
[2021-09-13 17:04] LABS: Erythrocyte Sedimentation Rate 10 mm/hr (0-30)
[2021-09-13 17:14] LABS: ALB/GLOB Ratio 1.3 RATIO (0.9-2.4); AST(SGOT) 19 U/L (15-37); Alanine Aminotransfer ALT/SGPT 26 U/L (13-56); Albumin, Serum 3.8 g/dL (3.2-5.0); Alkaline Phosphatase 60 U/L (45-117); Anion Gap 4 (5-15); BUN 23 mg/dL (7-18); CPK Total, Creatine Kinase 58 U/L (26-192); Calcium,Total 9.5 mg/dL (8.5-10.1); Chloride 108 mmol/L (98-107); Creatinine, Serum 1.15 mg/dL (0.55-1.02); EST Glomerular Filtration Rate 48 mL/min (>60); Est Glom Filt Rate - Afr Amer 58 mL/min (>60); Glucose 102 mg/dL (74-106); Potassium 3.9 mmol/L (3.5-5.1); Protein, Total 6.8 g/dL (6.4-8.2); Sodium Level 138 mmol/L (136-145)
== END 2021-09-13 17:59 | disposition home or self-care (01) ==
PROVIDERS: Emergency Provider Emergency Medicine; PCP Internal Medicine; Visit Provider Emergency Medicine
DX: M79.662 Pain in left lower leg (principal)
CPT/HCPCS: 80053; 82550; 85025; 85652; 99283; A4216

== ENCOUNTER 2021-11-24 08:55 | Observation (INO) | payer MEDICARE, SELFPAY ==
[2021-11-24] VITALS (17 sets, daily range): BP systolic 92–158; BP diastolic 46–111; PULSE 84–144; RESP 18–36; TEMP 36.7–37.7; O2SAT 85–98; BMI 20.3; BMI 21.1
--- NOTE | 2021-11-24 09:10 | EKG12_ITS ---
Test Reason : SOB Blood Pressure : / mmHG Vent. Rate : 132 BPM Atrial Rate : 136 BPM P-R Int : 000 ms QRS Dur : 076 ms QT Int : 308 ms P-R-T Axes : 000 -75 069 degrees QTc Int : 456 ms Atrial fibrillation Left axis deviation Nonspecific ST and T wave abnormality Abnormal ECG Confirmed by LANCE REYES, AGAPITO ([id number]), online editor SHREYAS MATTHEWS ([id number]) on 11/26/2021 11:44:25 AM Referred By: RAND Confirmed By:AGAPITO LUCAS MD
--- NOTE | 2021-11-24 09:14 | ED.VIS.DYS ---
HPI History of Present Illness Chief Complaint: Shortness of Breath Narrative Narrative: 86-year-old female with history of CHF, atrial fibrillation, asthma presenting with shortness of breath for the last 48 hours. Patient recently traveled to [facility] for a wedding. She reports that there she was dancing vigorously and did not have any shortness of breath. Upon returning she states that she has felt a chill and more shortness of breath. She has been using her albuterol treatments without relief. She states that she does feel tight but does not report any chest pain. No fever, however the patient states she thought she had one and when she checked her temperature was normal. She denies lower extremity edema. Patient anticoagulated on Eliquis for history of atrial fibrillation. [facility] Medical History Arthritis Ascending aorta dilatation Asthma Fibromyalgia First degree AV block Nonrheumatic mitral valve regurgitation Nonrheumatic tricuspid valve regurgitation Paroxysmal atrial fibrillation PVCs (premature ventricular contractions) Secondary pulmonary arterial hypertension Home Medications albuterol sulfate 2 puff IH 4X/DAY PRN PRN 05/14/13 [History Last Taken 05/27/13 05:55] montelukast 10 mg PO DAILY 05/14/13 [History Last Taken Unknown] aspirin 81 mg tablet,delayed release 81 mg PO QDAY tab 09/21/17 [History Last Taken Unknown] apixaban 2.5 mg PO BID 08/29/20 [History Last Taken Unknown] beclomethasone dipropionate 2 puff INHALATION BID 08/29/20 [History Last Taken Unknown] biotin 5,000 mcg PO BID 08/29/20 [History Last Taken Unknown] furosemide 20 mg PO DAILY 08/29/20 [History Last Taken Unknown] metoprolol succinate 25 mg PO BID 08/29/20 [History Last Taken Unknown] prednisone 5 mg PO DAILY 08/29/20 [History Last Taken Unknown] trazodone 50 mg PO QHS 08/29/20 [History Last Taken Unknown] Allergy/AdvReac Type Severity Reaction Status Date / Time No Known Allergies Allergy Verified 11/24/21 08:56 Family History Unknown No problems noted. Surgical History History of bilateral hip replacements History of hysterectomy History of tonsillectomy Hx of cholecystectomy Social History household members: none Smoking Status: Never smoker substance use type: does not use ROS ROS ED Constitutional Constitutional ED: Reports chills; Denies fever(s) or weight loss Eyes Eyes: Denies blurry vision ENT ENT ED: Reports rhinorrhea; Denies sore throat Cardiovascular Cardiovascular: Denies chest pain or palpitations Respiratory/Chest Respiratory/Chest: Reports cough and dyspnea Gastrointestinal Gastrointestinal: Denies abdominal pain, diarrhea, nausea or vomiting Genitourinary Genitourinary ED: Denies dysuria or hematuria Musculoskeletal Musculoskeletal: Reports myalgias; Denies arthralgias or neck pain Integumentary Denies rash Neurologic Neurologic: Denies headache(s) or weakness Psychiatric Psychiatric: Denies anxiety or depression EXAM Physical Exam Const Vital Signs: 11/24/21 08:57 11/24/21 09:00 11/24/21 09:10 Temperature 98.8 F 98.8 F Temperature Source Temporal Temporal Pulse Rate 115 H 144 H Respiratory Rate 22 H 24 H Respiratory Effort Respiratory Depth Respiratory Pattern Blood Pressure 145/111 H 158/84 H Blood Pressure Mean 122 108 Pulse Ox 96 85 Oxygen Delivery Method Room Air Nasal Cannula Nasal Cannula Oxygen Flow Rate (L/min) 2 2 11/24/21 09:26 11/24/21 10:00 11/24/21 10:15 Temperature 100 F H Temperature Source Temporal Pulse Rate 138 H 123 H Respiratory Rate 22 H 36 H Respiratory Effort Short of Breath Respiratory Depth Shallow Respiratory Pattern Tachypnea Blood Pressure 132/72 H Blood Pressure Mean 92 Pulse Ox 93 Oxygen Delivery Method Nasal Cannula Oxygen Flow Rate (L/min) 2 11/24/21 11:00 Temperature 99.6 F H Temperature Source Temporal Pulse Rate 126 H Respiratory Rate 24 H Respiratory Effort Respiratory Depth Respiratory Pattern Blood Pressure 120/104 H Blood Pressure Mean 109 Pulse Ox 96 Oxygen Delivery Method Nasal Cannula Oxygen Flow Rate (L/min) 2 Positive well nourished General Appearance ED: NAD; Negative for pallor HEENT Reports moist mucous membranes atraumatic Eyes PERRL and EOMs intact bilaterally Resp Auscultation: wheezes expiratory wheezes and throughout Cardio Rate: tachycardic Rhythm: abnormal rhythm irregularly irregular GI non-tender Palpation: soft Back/Spine normal to inspection Neuro oriented x3 and CN's II-XII intact bilaterally Sensorium / Orientation: alert Motor Exam: strength 5/5 throughout and general weakness Psych mental status grossly normal Skin General Skin Exam: Negative for jaundice or pallor Rashes: no rashes MDM MDM MDM Narrative Medical decision making narrative: Patient presenting with shortness of breath. She states that it does seem to be worse with exertion and when she got up to the bed she felt more short of breath and was placed on 2 L of oxygen for comfort. Her pulse ox is still in the 90s. Heart rate noted to be tachycardic with a history of atrial fibrillation and I obtained an EKG which shows atrial fibrillation with a ventricular rate of 132 bpm without sign of ischemic change on my interpretation. Patient did not take her home dose of metoprolol or Eliquis today and this was provided for her. Patient's wheezing on exam and is given Solu-Medrol and breathing treatments. Given that she is tachycardic and tachypneic sepsis work-up was started however patient does not look significantly ill on exam. I will test the patient for COVID/influenza given her symptoms of chills and shortness of breath. I did not initially give IV fluids given her history of heart failure. CBC shows a leukocytosis. Hemoglobin stable at 11.7. Platelets normal at 177. PT/INR normal. Creatinine at baseline 1.11. Electrolytes unremarkable. Lactic acid 1.5. AST and ALT are slightly elevated. Urinalysis negative for infection. After breathing treatments patient felt improved however when she stood to ambulate she felt weak and short of breath. She has 2 pulse ox readings in the mid 80s. Chest x-ray on my interpretation shows mild pulmonary vascular congestion. He tested positive for influenza today but she has a negative COVID swab. I have low suspicion for PE given that she is on Eliquis. I spoke with the hospitalist for admission due to hypoxic respiratory failure. Patient amenable to inpatient treatment at this time. After speaking with the hospitalist it was recommended give Lasix. Her heart rate was still in the 115?120 range and she was given 10 mg of Cardizem. Her heart rate did come down to about 100. Impression: 1. Influenza a 2. Dyspnea 3. Hypoxic respiratory failure 4. Atrial fibrillation with RVR 5. CHF Lab Data Attestation: I reviewed the patient's lab results. Labs: Laboratory Results - last 24 hr 11/24/21 11/24/21 11/24/21 09:30 09:30 09:30 WBC 6.3 RBC 4.10 L Hgb 11.7 L Hct 37.7 MCV 92.0 MCH 28.5 MCHC 31.0 L RDW Std Deviation 56.5 H RDW Coeff of Carey 16.9 H Plt Count 177 MPV 9.7 Immature Gran % (Auto) 0.600 Neut % (Auto) 86.2 H Lymph % (Auto) 8.9 L Dawes % (Auto) 3.3 Eos % (Auto) 0.8 Baso % (Auto) 0.2 Absolute Neuts (auto) 5.5 Absolute Lymphs (auto) 0.56 L Nucleated RBC % 0 Differential Comment Platelet Estimate ADEQUATE RBC Morphology NORM C+C PT 13.7 INR 1.1 APTT 33.1 Sodium 142 Potassium 4.0 Chloride 110 H Carbon Dioxide 26.0 Anion Gap 6 BUN 25 H Creatinine 1.11 H Estim Creat Clear Calc 33.43 Est GFR (MDRD) Af Amer 60 Est GFR (MDRD) Non-Af 50 L BUN/Creatinine Ratio 22.5 H Glucose 104 Lactic Acid Calcium 8.8 Total Bilirubin 0.80 AST 61 H ALT 76 H Alkaline Phosphatase 112 Troponin I High Sens 28 Total Protein 7.0 Albumin 3.3 Globulin 3.7 Albumin/Globulin Ratio 0.9 Urine Color Urine Clarity Urine pH Ur Specific Hamilton Urine Protein Urine Glucose (UA) Urine Ketones Urine Occult Blood Urine Nitrite Urine Bilirubin Urine Urobilinogen Ur Leukocyte Esterase Urine RBC Urine WBC Ur Squamous Epith Cells Urine Bacteria Urine Mucus 11/24/21 11/24/21 09:30 10:45 WBC RBC Hgb Hct MCV MCH MCHC RDW Std Deviation RDW Coeff of Carey Plt Count MPV Immature Gran % (Auto) Neut % (Auto) Lymph % (Auto) Dawes % (Auto) Eos % (Auto) Baso % (Auto) Absolute Neuts (auto) Absolute Lymphs (auto) Nucleated RBC % Differential Comment Platelet Estimate RBC Morphology PT INR APTT Sodium Potassium Chloride Carbon Dioxide Anion Gap BUN Creatinine Estim Creat Clear Calc Est GFR (MDRD) Af Amer Est GFR (MDRD) Non-Af BUN/Creatinine Ratio Glucose Lactic Acid 1.5 Calcium Total Bilirubin AST ALT Alkaline Phosphatase Troponin I High Sens Total Protein Albumin Globulin Albumin/Globulin Ratio Urine Color Yellow Urine Clarity Sl. Cloudy Urine pH 6.0 Ur Specific Hamilton 1.015 Urine Protein 15 H Urine Glucose (UA) Normal Urine Ketones Negative Urine Occult Blood 25 H Urine Nitrite Negative Urine Bilirubin Negative Urine Urobilinogen Normal Ur Leukocyte Esterase 25 H Urine RBC 0-5 SEEN Urine WBC 0-5 SEEN Ur Squamous Epith Cells 0-5 SEEN Urine Bacteria 0 SEEN Urine Mucus 0 SEEN Radiography Diagnostic Testing: Clinical Impression(s) from Imaging Studies Chest X-Ray 11/24/21 09:40 IMPRESSION: Vascular congestion and mild CHF with superimposed bibasilar atelectasis and blunting of the left costophrenic angle. Electronically Signed: Sudheer Griffin MD at 9:57 EDT , Discharge Plan Triage Chief Complaint: Shortness of Breath ED Provider: Ernie Martinez Dx/Rx/DC Orders Primary Care Provider: Cielo Ribeiro
[2021-11-24] MEDS: Ipratropium/Albuterol Sulfate 3 ML AMPUL.NEB INHALATION ×2 (09:25→18:29)
[2021-11-24] MEDS: Albuterol 2.5 MG/3 ML VIAL.NEB. INHALATION (09:25)
--- NOTE | 2021-11-24 09:40 | RAD_ITS ---
STUDY: X-RAY CHEST REASON FOR EXAM: Female, 86 years old. Dyspnea TECHNIQUE: Single AP portable view of the chest. COMPARISON: Comparison is made with prior study dated 02/13/2021. FINDINGS: EKG electrodes are seen. Mastoid congestion and mild CHF with superimposed bibasilar atelectasis. Blunting of the left costophrenic angle. Sternal cerclage wires are present from a prior sternotomy. Prior much of bowel repair. A clip is seen in the region of the aortic valve. Thyromegaly. Normal mediastinum and valarie. Normal visualized pulmonary arteries. There is atherosclerotic calcification of the aortic arch with tortuosity. There are diffuse degenerative changes of the visualized thoracic spine. Normal visualized ribs, clavicles, and shoulders. There is no demonstrated abnormality of the visualized soft tissue structures of the upper abdomen. RAD/Chest 1 View (Portable) IMPRESSION: Vascular congestion and mild CHF with superimposed bibasilar atelectasis and blunting of the left costophrenic angle. Electronically Signed: Sudheer Griffin MD at 9:57 EDT ,
[2021-11-24] MEDS: APIXABAN 2.5 MG TABLET PO ×2 (09:44→22:14)
[2021-11-24] MEDS: Metoprolol(XL)Succ 25 MG Tablet PO (09:44)
[2021-11-24] MEDS: MethylPREDNISolone 125 MG/2 ML Vial IV (09:45)
[2021-11-24 09:48] LABS: Absolute Lymphocyte Count 0.56 X10^3/uL (0.83-4.51); Absolute Neutrophil Count 5.5 X10^3/uL (2.0-7.7); Basophil# 0.01 X10^3/uL; Basophil% 0.2 % (0-1); Eosinophil# 0.05 X10^3/uL; Eosinophils% 0.8 % (0-5); Hematocrit 37.7 % (37-47); Hemoglobin 11.7 g/dL (12.0-15.0); Lymphocyte # 0.56 X10^3/ul (0.83-4.51); Lymphocyte % 8.9 % (19-41); Mean Corpuscular Hgb 28.5 pg (27.0-32.0); Mean Platelet Vol. 9.7 fl (6.2-12.0); Monocyte# 0.21 X10^3/uL; Monocyte% 3.3 % (0-10); NRBC Flagged by Analyzer 0 % (0-5); Neutrophil # 5.45 X10^3/uL (2.7-7.7); Neutrophil % 86.2 % (47-70); POSITIVE DIFFERENTIAL YES; Platelet Count 177 K/mm3 (150-450); RBC Distribution Width CV 16.9 % (11.6-14.6); RBC Distribution Width SD 56.5 fl (35.1-43.9); White Blood Count 6.3 K/mm3 (4.4-11.0)
[2021-11-24 09:55] LABS: Differential Indicated SCAN CRITERIA MET; International Normalized Ratio 1.1; Prothrombin Time (Protime)PT. 13.7 SECONDS (11.7-14.9)
[2021-11-24 09:56] LABS: Partial Thromboplast Time 33.1 Seconds (24.1-36.2)
[2021-11-24 10:10] LABS: ALB/GLOB Ratio 0.9 RATIO (0.9-2.4); AST(SGOT) 61 U/L (15-37); Alanine Aminotransfer ALT/SGPT 76 U/L (13-56); Albumin, Serum 3.3 g/dL (3.2-5.0); Alkaline Phosphatase 112 U/L (45-117); Anion Gap 6 (5-15); BUN 25 mg/dL (7-18); BUN/Creat Ratio 22.5 RATIO (10-20); Calcium,Total 8.8 mg/dL (8.5-10.1); Chloride 110 mmol/L (98-107); Creatinine, Serum 1.11 mg/dL (0.55-1.02); EST Glomerular Filtration Rate 50 mL/min (>60); Est Glom Filt Rate - Afr Amer 60 mL/min (>60); Estimated Creatinine Clearance 33.43 ml/min; Globulin 3.7 g/dL (2.2-4.2); Glucose 104 mg/dL (74-106); Sodium Level 142 mmol/L (136-145); Troponin-I HS 28 pg/mL (3.0-54.0)
[2021-11-24 10:18] LABS: Lactic Acid 1.5 mmol/L (0.4-1.9)
[2021-11-24 10:33] LABS: Platelet Estimate ADEQUATE (ADEQ); Red Cell Morphology NORM C+C NORMAL (NORM C&C)
[2021-11-24 10:55] LABS: Bacteria 0 SEEN /hpf (None Seen); Mucous, Urine 0 SEEN /hpf (<or=2+)
--- NOTE | 2021-11-24 10:58 | NURSING ---
pt on room air and o2 sats drop to 86%. pt placed back on 2L NC.
[2021-11-24 11:00] LABS: Color, Urine Yellow (Yellow); Glucose, Dipstick Normal (Normal); Ketone-Dipstick Negative (Negative); Leukocyte Esterase-Dipstick 25 /ul (Negative); Nitrite-Dipstick Negative (Negative); Occult Blood-Urine 25 /ul (Negative); Protein-Dipstick 15 mg/dl (Negative); Specific Gravity, Urine 1.015 (1.002-1.030); Urine Bilirubin Dipstick Negative (Negative); Urine Clarity Sl. Cloudy (Clear); Urine Urobilinogen Normal (Normal)
[2021-11-24 11:08] LABS: Red Blood Cells-Urine 0-5 SEEN /hpf (0-5); Squamous Epithelial Cells - UA 0-5 SEEN /hpf (5-10); White Blood Cells 0-5 SEEN /hpf (0-5)
--- NOTE | 2021-11-24 11:54 | NURSING ---
DR DANIA VILLAREAL
[2021-11-24] MEDS: Oseltamivir Phosphate 75 MG Capsule PO (12:15)
[2021-11-24] MEDS: Acetaminophen 500 MG Tablet 1000 MG PO (12:15)
[2021-11-24] MEDS: dilTIAZem 25 MG/5 ML Vial 10 MG IV BOLUS (12:15)
--- NOTE | 2021-11-24 12:47 | NURSING ---
115 DANIA, INFLUENZA, CHF
[2021-11-24] MEDS: Furosemide 40 MG/4 ML Vial IV ×2 (12:52→17:12)
--- NOTE | 2021-11-24 13:18 | PCM.HP.STD ---
Documented by User: Sujata Lopez NP, [employer]CIAL LOAN COLLECTION OFFICER-C 11/24/21 13:36 HPI - General General Date of Admission: 11/24/21 Date of Service: 11/24/21 Chief Complaint: Shortness of breath HPI Narrative KAMLESH COLE, is a 86 F who presents to the emergency room due to shortness of breath. Patient states she got back from a wedding in [place] on Monday and shortly following her return developed upper respiratory symptoms including sore throat, fever/chills, cough and shortness of breath. Patient states her shortness of breath has worsened over the past day or so. She reports general malaise and fatigue as well. She denies chest pain. Denies weight gain or swelling. States she uses an inhaler for asthma which has not significantly improved her symptoms. She states she is vaccinated for influenza and COVID-19. She has a past medical history of asthma, paroxysmal atrial fibrillation, valvular heart disease, pulmonary hypertension, asthma, fibromyalgia, CHF, history of lung nodule. [facility] Medical History Arthritis Ascending aorta dilatation Asthma Fibromyalgia First degree AV block Nonrheumatic mitral valve regurgitation Nonrheumatic tricuspid valve regurgitation Paroxysmal atrial fibrillation PVCs (premature ventricular contractions) Secondary pulmonary arterial hypertension Home Medications albuterol sulfate 2 puff IH 4X/DAY PRN PRN 05/14/13 [History Last Taken 05/27/13 05:55] montelukast 10 mg PO DAILY 05/14/13 [History Last Taken Unknown] aspirin 81 mg tablet,delayed release 81 mg PO QDAY tab 09/21/17 [History Last Taken Unknown] apixaban 2.5 mg PO BID 08/29/20 [History Last Taken Unknown] beclomethasone dipropionate 2 puff INHALATION BID 08/29/20 [History Last Taken Unknown] biotin 5,000 mcg PO BID 08/29/20 [History Last Taken Unknown] furosemide 20 mg PO DAILY 08/29/20 [History Last Taken Unknown] metoprolol succinate 25 mg PO BID 08/29/20 [History Last Taken Unknown] prednisone 5 mg PO DAILY 08/29/20 [History Last Taken Unknown] trazodone 50 mg PO QHS 08/29/20 [History Last Taken Unknown] Allergy/AdvReac Type Severity Reaction Status Date / Time No Known Allergies Allergy Verified 11/24/21 08:56 Family History (Updated 11/24/21 @ 13:22 by Sujata Lopez NP, [employer]CIAL LO[employer]LECTION OFFICER-C) Unknown No problems noted. Mother , at age 102 No cardiac disease Father Dementia Surgical History (Updated 11/24/21 @ 13:23 by Sujata Lopez NP, COMM[employer]CIAL LO[employer]LECTION OFFICER-C) H/O mitral valve repair History of bilateral hip replacements History of hysterectomy History of tonsillectomy Hx of cholecystectomy Social History household members: none Smoking Status: Never smoker substance use type: does not use ROS Constitutional Constitutional: Reports chills, fatigue, fever(s), malaise and weakness; Denies change in weight Cardiovascular Cardiovascular: Reports lightheadedness; Denies chest pain, edema, palpitations or syncope Respiratory/Chest Respiratory/Chest: Reports cough, dyspnea and wheezing Gastrointestinal Gastrointestinal: Denies abdominal pain, constipation, diarrhea, nausea or vomiting Genitourinary Genitourinary: Denies burning urination, difficulty urinating, dysuria, hematuria, urinary frequency, urinary incontinence or urinary urgency Musculoskeletal Musculoskeletal: Denies back pain, joint pain or muscle weakness Integumentary Integumentary: Denies erythema, lesions, rash or wounds Neurologic Neurologic: Denies abnormal speech, confusion, dizziness, focal weakness, numbness, paresthesias, seizure-like activity or syncope Psychiatric Psychiatric: Denies anxiety or depression Hematologic/Lymphatic Hematologic/Lymphatic: Denies anemia, easy bleeding or easy bruising Allergic/Immunologic Allergic/Immunologic: Denies hives or asthma Vital Signs Vital Signs Vital Signs: 11/24/21 08:57 11/24/21 09:00 11/24/21 09:10 Temperature 98.8 F 98.8 F Temperature Source Temporal Temporal Pulse Rate 115 H 144 H Respiratory Rate 22 H 24 H Respiratory Effort Respiratory Depth Respiratory Pattern Blood Pressure 145/111 H 158/84 H Blood Pressure Mean 122 108 Pulse Ox 96 85 Oxygen Delivery Method Room Air Nasal Cannula Nasal Cannula Oxygen Flow Rate (L/min) 2 2 11/24/21 09:26 11/24/21 10:00 11/24/21 10:15 Temperature 100 F H Temperature Source Temporal Pulse Rate 138 H 123 H Respiratory Rate 22 H 36 H Respiratory Effort Short of Breath Respiratory Depth Shallow Respiratory Pattern Tachypnea Blood Pressure 132/72 H Blood Pressure Mean 92 Pulse Ox 93 Oxygen Delivery Method Nasal Cannula Oxygen Flow Rate (L/min) 2 11/24/21 11:00 11/24/21 12:41 Temperature 99.6 F H 99.6 F H Temperature Source Temporal Temporal Pulse Rate 126 H 101 H Respiratory Rate 24 H 26 H Respiratory Effort Respiratory Depth Respiratory Pattern Blood Pressure 120/104 H 103/46 L Blood Pressure Mean 109 65 Pulse Ox 96 94 Oxygen Delivery Method Nasal Cannula Nasal Cannula Oxygen Flow Rate (L/min) 2 Weight Weight: 126 lb Body Mass Index (BMI) 20.3 Physical Exam Const alert and oriented x3 Orientation / Consciousness: awake, oriented to person, oriented to place and oriented to time HEENT normocephalic Mouth: dry mucous membranes Eyes PERRL, EOMs intact bilaterally and conjunctivae normal Neck no lymphadenopathy Resp Effort and Inspection: tachypneic Auscultation: crackles, wheezes and diminished lung sounds Cardio regular rhythm and no murmurs Rate: tachycardic Peripheral Pulses: pulses 2+ throughout GI normal to inspection, nondistended, normoactive bowel sounds, non-tender and non-distended Extremity normal to inspection Skin no rashes or lesions noted Lesions: no lesions Rashes: no rashes Trauma: no lacerations or abrasions Neuro CN's II-XII intact bilaterally, no focal motor deficits, no sensory deficits noted and deep tendon reflexes 2+ bilaterally Psych mental status grossly normal and affect normal Results Lab / Micro Data Result Diagrams: 11/24/21 09:30 11/24/21 09:30 Labs: Laboratory Results - last 24 hr 11/24/21 09:30: WBC 6.3, RBC 4.10 L, Hgb 11.7 L, Hct 37.7, MCV 92.0, MCH 28.5, MCHC 31.0 L, RDW Std Deviation 56.5 H, RDW Coeff of Carey 16.9 H, Plt Count 177, MPV 9.7, Immature Gran % (Auto) 0.600, Neut % (Auto) 86.2 H, Lymph % (Auto) 8.9 L, Hill % (Auto) 3.3, Eos % (Auto) 0.8, Baso % (Auto) 0.2, Absolute Neuts (auto) 5.5, Absolute Lymphs (auto) 0.56 L, Nucleated RBC % 0, Differential Comment , Platelet Estimate ADEQUATE, RBC Morphology NORM C+C 11/24/21 09:30: PT 13.7, INR 1.1, APTT 33.1 11/24/21 09:30: Sodium 142, Potassium 4.0, Chloride 110 H, Carbon Dioxide 26.0, Anion Gap 6, BUN 25 H, Creatinine 1.11 H, Estim Creat Clear Calc 33.43, Est GFR (MDRD) Af Amer 60, Est GFR (MDRD) Non-Af 50 L, BUN/Creatinine Ratio 22.5 H, Glucose 104, Calcium 8.8, Total Bilirubin 0.80, AST 61 H, ALT 76 H, Alkaline Phosphatase 112, Troponin I High Sens 28, Total Protein 7.0, Albumin 3.3, Globulin 3.7, Albumin/Globulin Ratio 0.9 11/24/21 09:30: Lactic Acid 1.5 11/24/21 10:45: Urine Color Yellow, Urine Clarity Sl. Cloudy, Urine pH 6.0, Ur Specific Naylor 1.015, Urine Protein 15 H, Urine Glucose (UA) Normal, Urine Ketones Negative, Urine Occult Blood 25 H, Urine Nitrite Negative, Urine Bilirubin Negative, Urine Urobilinogen Normal, Ur Leukocyte Esterase 25 H, Urine RBC 0-5 SEEN, Urine WBC 0-5 SEEN, Ur Squamous Epith Cells 0-5 SEEN, Urine Bacteria 0 SEEN, Urine Mucus 0 SEEN Micro: Microbiology 11/24/21 09:30 Nasal Secretion SARS-CoV-2 & FLU Antigen (Rapid) - Final Radiology Impression Chest X-Ray 11/24/21 09:40 IMPRESSION: Vascular congestion and mild CHF with superimposed bibasilar atelectasis and blunting of the left costophrenic angle. Electronically Signed: Sudheer Griffin MD at 9:57 EDT , Assessment & Plan Assessment/Plan (1) Acute respiratory failure with hypoxia: PLAN: 1. Acute hypoxic respiratory failure secondary to exacerbation of asthma as a result of influenza A as well as acute on chronic heart failure with reduced ejection fraction-continue supplemental oxygen to maintain O2 at or above 90%. Wean as tolerated. Walking pulse ox prior to discharge. Patient noted to be significantly tachypneic on admission. Oxygen documented to be 85% on 2 L nasal cannula. 2. Acute asthma exacerbation secondary to influenza A-albuterol DuoNeb aerosols. Initiate course of Tamiflu. IV Solu-Medrol. 3. Acute on chronic heart failure with reduced ejection fraction-chest x-ray with congestion. BNP pending. LEA in 2018 demonstrated an EF of 35 to 40%, moderately severe mitral valve insufficiency, moderate tricuspid valve insufficiency. IV Lasix. Strict I&O. Daily weight. Repeat echocardiogram. 4. Paroxysmal atrial fibrillation with RVR-Cardizem bolus in ED. Rate improved. Continue home metoprolol regimen, Eliquis. Increase metoprolol to 50 mg twice daily. 5. Valvular heart disease-patient reports history of mitral valve repair. 6. Chronic kidney disease stage IIIa-appears at baseline, trend BMP. 7. Pulmonary hypertension-repeat echo as noted above. 8. Fibromyalgia-on low-dose prednisone? 9. History of lung nodule-continue outpatient surveillance. DVT prophylaxis-Eliquis This patient was seen by JENNIFER JohnsonC under the supervision of Dr. Ellington. Time spent examining patient, reviewing data and subsequent management of care: 25 minutes Documented by User: Dr. Constance Ellington MD 11/24/21 14:47 HPI - General General Date of Admission: 11/24/21 [facility] Medical History Arthritis Ascending aorta dilatation Asthma Fibromyalgia First degree AV block Nonrheumatic mitral valve regurgitation Nonrheumatic tricuspid valve regurgitation Paroxysmal atrial fibrillation PVCs (premature ventricular contractions) Secondary pulmonary arterial hypertension Home Medications albuterol sulfate 2 puff IH 4X/DAY PRN PRN 05/14/13 [History Last Taken 05/27/13 05:55] montelukast 10 mg PO DAILY 05/14/13 [History Last Taken Unknown] aspirin 81 mg tablet,delayed release 81 mg PO QDAY tab 09/21/17 [History Last Taken Unknown] apixaban 2.5 mg PO BID 08/29/20 [History Last Taken Unknown] beclomethasone dipropionate 2 puff INHALATION BID 08/29/20 [History Last Taken Unknown] biotin 5,000 mcg PO BID 08/29/20 [History Last Taken Unknown] furosemide 20 mg PO DAILY 08/29/20 [History Last Taken Unknown] metoprolol succinate 25 mg PO BID 08/29/20 [History Last Taken Unknown] prednisone 5 mg PO DAILY 08/29/20 [History Last Taken Unknown] trazodone 50 mg PO QHS 08/29/20 [History Last Taken Unknown] Allergy/AdvReac Type Severity Reaction Status Date / Time No Known Allergies Allergy Verified 11/24/21 08:56 Family History (Updated 11/24/21 @ 13:22 by Sujata Lopez NP, COMM[employer]CIAL LOAN [employer]LECTION OFFICER-C) Unknown No problems noted. Mother , at age 102 No cardiac disease Father Dementia Surgical History (Updated 11/24/21 @ 13:23 by Sujata Lopez NP, COMM[employer]CIAL LO[employer] COLLECTION OFFICER-C) H/O mitral valve repair History of bilateral hip replacements History of hysterectomy History of tonsillectomy Hx of cholecystectomy Social History household members: none Smoking Status: Never smoker substance use type: does not use Results Lab / Micro Data Result Diagrams: 11/24/21 09:30 11/24/21 09:30 Charges/Coding Addendum Addendum: This patient was seen in conjunction with Sujata Lopez NP. I have independently interviewed and examined the patient and reviewed pertinent historical, laboratory, and other data. I have reviewed her note and concur with her documentation 82-year-old female with past medical history of paroxysmal atrial fibrillation, chronic systolic CHF, who presented with shortness of breath that happened a day prior to admission. Patient just returned from [place] 2 days prior to admission and developed upper respiratory symptoms including sore throat, fever, chills, cough, progressive shortness of breath. She admitted to some chest discomfort. Shortness of breath worsened throughout the day. She denied any weight gain. She has been vaccinated for influenza and COVID-19. In the emergency room, she was found to be hypoxic, saturating 85% on room air. She was saturating well on 2 L of oxygen. Her respiratory panel was negative for acute COVID-19 but positive for influenza A. BNP was 308, initial troponin was 28. EKG shows A. fib with RVR. Patient was started on her home metoprolol 25 mg p.o. daily and given a bolus of Cardizem Physical Exam: Gen: Comfortable, not pale, not jaundiced, on 2L oxygen CVS:HS I +II, regular, no murmurs RESP: Diminished at lung bases, wheezes++ GI: BS present and normal, soft, nontender, no palpable organs EXT:No edema ASSESSMENT: 1. Acute hypoxic respiratory failure 2. Acute influenza A 3. Acute asthma exacerbation 4. Acute exacerbation of heart failure reduced EF, EF 35% 5. CKD stage III Plan: Admit to PCU, breathing treatments IV Solu-Medrol, IV Lasix Tamiflu Continue with aspirin, apixaban, metoprolol Time spent coordinating patient's care, discussing with nursin minutes I discussed and explained in details the various types of CODE STATUS-full code, DNR CCA, DNR CC. Patient chose DNR-CCA, no intubation Time spent discussing CODE STATUS 16 minutes Visit Charges Inpatient E&M: 18342 Init Hosp L3 Procedures Hospitalists Procedures: 02079 Advncd Care Plan 30 Min
--- NOTE | 2021-11-24 13:34 | ECHOD_ITS ---
Reason For Study: CHF Procedure This was a 2D Doppler, Color Flow transthoracic echocardiogram. The exam was of adequate technical quality. Exam performed portable in patient room. Left Ventricle Normal LV size. Left ventricular systolic function is normal. The estimated ejection fraction is 60 %. Unable to assess diastolic dysfunction. No regional wall motion abnormalities noted. Right Ventricle Normal RV size. Normal systolic function. Atria The left atrium is moderately enlarged. The right atrium is mildly enlarged. No doppler evidence for ASD. Mitral Valve An annuloplasty ring is noted in the mitral position. MIld (1+) transvalvular insufficiency of the mitral valve. Tricuspid Valve Right ventricular systolic pressure estimated to be 32 mmHg. An annuloplasty ring is noted in the tricuspid position. Mild transvalvular insufficiency of the tricuspid valve. Aortic Valve Trisinus/trileaflet aortic valve. Normal aortic valve. Pulmonic Valve The pulmonic valve is not well visualized. Trivial pulmonic valve insufficiency. Great Vessels Normal sized aortic root. Pericardium/Pleural Small pericardial effusion. There are no echocardiographic indications of cardiac tamponade. Echolucency compatible with a pleural effusion. MMode/2D Measurements & Calculations LVIDd: 3.8 cm IVSd: 1.1 cm Ao root diam: 3.3 cm LVIDs: 2.1 cm LVPWd: 1.2 cm FS: 45.0 % LAV(MOD-bp): 69.5 ml LVAd ap4: 18.6 cm2 SV(MOD-sp4): 25.3 ml LAV(MOD-bp) Indexed: 42.3 ml/m2 LVLd ap4: 6.5 cm LAV(MOD-sp2): 89.0 ml EDV(MOD-sp4): 44.0 ml LAV(MOD-sp4): 52.2 ml EDV(sp4-el): 45.3 ml LVAs ap4: 11.2 cm2 LVLs ap4: 5.7 cm ESV(MOD-sp4): 18.7 ml ESV(sp4-el): 18.9 ml EF(MOD-sp4): 57.4 % EF(sp4-el): 58.4 % SV(sp4-el): 26.4 ml LA A4 area: 19.7 cm2 LA dimension(2D): 4.9 cm RA A4 area: 15.6 cm2 Time Measurements MV dec time: 0.32 sec Doppler Measurements & Calculations MV E max amy: 170.6 cm/sec MV V2 max: 181.8 cm/sec MV P1/2t max amy: 185.8 cm/sec MV max P.2 mmHg MV P1/2t: 94.3 msec MV V2 mean: 95.1 cm/sec MV dec slope: 576.8 cm/sec2 MV mean P.5 mmHg MVA(P1/2t): 2.3 cm2 MV V2 VTI: 44.4 cm Ao V2 max: 136.8 cm/sec LV V1 max: 121.5 cm/sec PA V2 max: 83.8 cm/sec Ao max P.5 mmHg LV V1 max P.9 mmHg Ao V2 mean: 95.9 cm/sec Ao mean P.1 mmHg Ao V2 VTI: 22.7 cm TR max amy: 269.2 cm/sec TR max P.0 mmHg ECHO/Echo Complete Interpretation Summary Left ventricular systolic function is normal. The estimated ejection fraction is 60 %. The left atrium is moderately enlarged. The right atrium is mildly enlarged. An annuloplasty ring is noted in the mitral position. MIld (1+) transvalvular insufficiency of the mitral valve. An annuloplasty ring is noted in the tricuspid position. Mild transvalvular insufficiency of the tricuspid valve. Trivial pulmonic valve insufficiency. Small pericardial effusion. There are no echocardiographic indications of cardiac tamponade. Echolucency compatible with a pleural effusion. Right ventricular systolic pressure estimated to be 32 mmHg. Unable to assess diastolic dysfunction. Ordering Physician: Sujata Lopez Referring Physician: Cielo Ribeiro Performed By: Rosaura Biggs, CONSTANTINO, RVT
[2021-11-24 13:56] LABS: Troponin-I HS 154 pg/mL (3.0-54.0)
[2021-11-24 14:05] LABS: BNP,B-Type NATRIURETIC PEPTIDE 308.5 pg/mL (0-100)
[2021-11-24 16:35] LABS: Troponin-I HS 172 pg/mL (3.0-54.0)
[2021-11-24] MEDS: 0.9% Saline Lock 10 ML Syringe IV ×2 (17:12→22:16)
[2021-11-24] MEDS: Budesonide Respules 0.5 MG/2 ML AMPUL.NEB. INHALATION (18:29)
[2021-11-24] MEDS: Acetaminophen 325 MG Tablet 650 MG PO (22:13)
[2021-11-24] MEDS: Metoprolol(XL)Succ 50 MG Tablet PO (22:13)
[2021-11-24] MEDS: traZODone 50 MG Tablet PO (22:14)
[2021-11-24] MEDS: Oseltamivir Phosphate 30 MG Capsule PO (22:17)
[2021-11-24] MEDS: Docusate Sodium 100 MG Capsule PO (23:41)
[2021-11-25] VITALS (11 sets, daily range): BP systolic 92–109; BP diastolic 62–71; PULSE 72–99; RESP 18–22; TEMP 36.6; O2SAT 91–96
[2021-11-25] MEDS: 0.9% Saline Lock 10 ML Syringe IV ×2 (05:19→10:25)
[2021-11-25 05:52] LABS: Absolute Lymphocyte Count 0.21 X10^3/uL (0.83-4.51); Absolute Neutrophil Count 7.8 X10^3/uL (2.0-7.7); Hematocrit 29.9 % (37-47); Hemoglobin 9.6 g/dL (12.0-15.0); Lymphocyte # 0.21 X10^3/ul (0.83-4.51); Lymphocyte % 2.6 % (19-41); Mean Corp Hgb Conc 32.1 g/dL (32-36); Mean Corpuscular Hgb 28.6 pg (27.0-32.0); Mean Platelet Vol. 9.7 fl (6.2-12.0); Monocyte# 0.15 X10^3/uL; Monocyte% 1.8 % (0-10); NRBC Flagged by Analyzer 0 % (0-5); Neutrophil # 7.77 X10^3/uL (2.7-7.7); POSITIVE DIFFERENTIAL YES; Platelet Count 155 K/mm3 (150-450); RBC Distribution Width CV 16.8 % (11.6-14.6); RBC Distribution Width SD 54.7 fl (35.1-43.9); Red Blood Count 3.36 M/mm3 (4.2-5.4); White Blood Count 8.2 K/mm3 (4.4-11.0)
[2021-11-25 06:08] LABS: Differential Indicated SCAN CRITERIA MET
[2021-11-25 06:36] LABS: ALB/GLOB Ratio 0.8 RATIO (0.9-2.4); AST(SGOT) 54 U/L (15-37); Alanine Aminotransfer ALT/SGPT 81 U/L (13-56); Albumin, Serum 2.7 g/dL (3.2-5.0); Alkaline Phosphatase 106 U/L (45-117); Anion Gap 8 (5-15); BUN 32 mg/dL (7-18); BUN/Creat Ratio 28.6 RATIO (10-20); Calcium,Total 8.1 mg/dL (8.5-10.1); Chloride 106 mmol/L (98-107); Creatinine, Serum 1.12 mg/dL (0.55-1.02); EST Glomerular Filtration Rate 49 mL/min (>60); Est Glom Filt Rate - Afr Amer 60 mL/min (>60); Estimated Creatinine Clearance 33.51 ml/min; Globulin 3.2 g/dL (2.2-4.2); Glucose 147 mg/dL (74-106); Potassium 3.7 mmol/L (3.5-5.1); Protein, Total 5.9 g/dL (6.4-8.2); Sodium Level 139 mmol/L (136-145)
[2021-11-25 06:37] LABS: Anisocytosis 1+
[2021-11-25] MEDS: Ipratropium/Albuterol Sulfate 3 ML AMPUL.NEB INHALATION ×2 (06:38→10:32)
[2021-11-25] MEDS: Budesonide Respules 0.5 MG/2 ML AMPUL.NEB. INHALATION (06:39)
[2021-11-25] MEDS: Oseltamivir Phosphate 30 MG Capsule PO (08:17)
[2021-11-25] MEDS: Metoprolol(XL)Succ 50 MG Tablet PO (08:17)
[2021-11-25] MEDS: APIXABAN 2.5 MG TABLET PO (08:17)
[2021-11-25] MEDS: Aspirin E.C. 81 MG Tablet PO (08:17)
[2021-11-25] MEDS: Montelukast 10 MG Tablet PO (08:17)
[2021-11-25] MEDS: Furosemide 40 MG/4 ML Vial IV (10:25)
--- NOTE | 2021-11-25 10:45 | PCM.DC ---
Discharge Instructions Diet Discharge Diet: No restrictions Activity Discharge Activity: Return to Normal Activity Weight Bearing Status: Weight bearing as tolerated Dressing / Incision Call your doctor if you observe: Fever of 101 or Higher, Numbness or Tingling, Shortness of breath, Dizziness, Chest pain, Increased palpitations (irregular heartbeat) and Calf discomfort Follow Up Care Please Follow Up With: Primary care provider When: Within the next two weeks. Test Results: Test results from this visit will be discussed in further detail at your follow-up appointment, if applicable. Discharge Plan Admission Admit Date/Time: 11/24/21 11:55 Primary Reason for Your Visit: Shortness of breath Attending Provider: Constance Ellington Primary Care Provider: Cielo Ribeiro Instructions Additional Instructions / Restrictions: * Hold taking your 5mg tablet of Prednisone, resume when your 40mg prescription is complete. * Continue to wear a mask around others for another 5 days after discharging from the hospital to prevent spread of Flu A. Discharge Orders/Prescriptions Prescriptions: New oseltamivir 30 mg Capsule 30 mg PO BID Qty: 10 RF: 0 prednisone 20 mg tablet 40 mg PO DAILY Qty: 10 RF: 0 Continued aspirin [Adult Low Dose Aspirin] 81 mg tablet,delayed release (DR/EC) 81 mg PO QDAY RF: 0 montelukast 10 MG tablet 10 mg PO DAILY RF: 0 albuterol sulfate 6.7 GM HFA aerosol inhaler 2 puff IH 4X/DAY PRN PRN (Reason: Sob &/Or Wheezing) RF: 0 trazodone 50 MG tablet 50 mg PO QHS RF: 0 biotin 10,000 MCG capsule 5,000 mcg PO BID RF: 0 furosemide 20 MG tablet 20 mg PO DAILY RF: 0 apixaban 2.5 MG tablet 2.5 mg PO BID RF: 0 beclomethasone dipropionate 1 PUFF inhaler 2 puff INHALATION BID RF: 0 metoprolol succinate 25 MG tablet extended release 24 hr 25 mg PO BID Qty: 0 RF: 0 Held prednisone 1 MG tablet 5 mg PO DAILY RF: 0 Hold Instructions: Hold while taking 40mg Prednisone, resume thereafter. Referrals / Follow Up: Jw Rodriguez MD [STAFF PHYSICIAN] - Within 2 Weeks Cielo Ribeiro MD [Primary Care Provider] - Within 1 Week Disposition Disposition (needs filled in before D/C Order can be placed): Home, Self Care
--- NOTE | 2021-11-25 11:00 | CASEMGMT ---
Addendum entered by Guera Garrido 11/25/21 15:00: Pt does not qualify for home oxygen at this time. Albin FAULKNER CM Original Note: KAUSHIK DEL TORO assessment: Face to Face with patient for initial transition planning/care coordination assessment. KAUSHIK DEL TORO introduced self and role at [facility], pt voices understanding and consents to assessment. Pt is sitting up in chair in no distress on room air. Pt is A/Ox4 and answers all questions appropriately. Care providers, pharmacy, and demographics verified/updated. Presentation: Pt c/o increased SOB/cough starting monday. Pt traveled to [place] a week ago and got back to [place] last night Admitting dx: Hypoxia, Influenza A PCP: [facility] Specialists: [facility] cardiology and rheumatology Preferred [facility]acy[facility] Insurance: AeR Prescription Benefit: AeR Living Will/HPOA: Pt has LW/HPOA and is aware that they are not on file at [facility]. LNOK: Say Lopez, son; Gelacio Lopez, son Living Arrangements: Pt lives alone in 1 story home with finished basement and states no concerns at home. Pt is independent with ADL's. Transportation: Pt drives self and states no transportation concerns. DME/HHC: Pt has grab bars in shower and states no need for any further DME. 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 Pt voices no concerns with going home at time of discharge. Pt is retired. Pt states does not smoke cigarettes but does occasionally drink ETOH. Pt voices no further concerns/needs. CM to follow for any further discharge planning/needs. Advised pt to ask for CM if any further questions/concerns/needs arise, voices understanding. Pt Goal: Home Plan: Home Albin FAULKNER CM
--- NOTE | 2021-11-25 12:56 | PCM.DC.SUM ---
Documented by User: Roger ANNE 11/25/21 13:13 Providers Date of Admission: 11/24/21 Date of Discharge: 11/25/21 Primary Care Physician: Dr. Cielo Ribeiro MD Reason For Visit: HYPOXIA / INFLUENZA Diagnosis Discharge Diagnosis (1) Acute respiratory failure with hypoxia: Status: Acute Code(s): J96.01 - Acute respiratory failure with hypoxia Medications at Discharge Home Medications albuterol sulfate 2 puff IH 4X/DAY PRN PRN 05/14/13 montelukast 10 mg PO DAILY 05/14/13 aspirin 81 mg tablet,delayed release 81 mg PO QDAY tab 09/21/17 apixaban 2.5 mg PO BID 08/29/20 beclomethasone dipropionate 2 puff INHALATION BID 08/29/20 biotin 5,000 mcg PO BID 08/29/20 furosemide 20 mg PO DAILY 08/29/20 prednisone 5 mg PO DAILY 08/29/20 trazodone 50 mg PO QHS 08/29/20 metoprolol succinate 25 mg PO BID #0 tab 11/25/21 oseltamivir 30 mg PO BID #10 cap 11/25/21 prednisone 40 mg PO DAILY #10 tab 11/25/21 Hospital Course Procedures 2-D Echocardiogram and Transthoracic echo Summary of Care Provided Minutes Spent on Discharge: 25 Hospital Course: Patient is an 86-year-old female who was admitted to [facility] on 11/24/2021 for evaluation and management of shortness of breath with hypoxia. Patient's acute hypoxic respiratory failure was believed to be multifactorial mainly due to an asthma exacerbation as well as having influenza A. Patient was placed on steroids as well as given Tamiflu during admission. Patient's symptoms abated quickly and patient was able to maintain oxygen saturations at 90% or greater after 1 evening of administration. Patient did not qualify for home oxygen as she was able to maintain oxygen saturations with ambulation. Patient will be placed on prednisone burst for 5 days on discharge, Tamiflu will also be continued for another 5 days. Patient was advised to wear a mask when in the presence of others to prevent the spread of Tamiflu. 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 Patient was advised to hold home prednisone while taking prednisone burst, all other home medications were continued. Patient seen by Roger Stoner PA-C, under the supervision of Dr. Ellington. Time spent on patient care: 20 minutes. Physical Exam Narrative Patient is an 86-year-old female comfortably resting in a chair, alert and orient x3. Patient reports that her shortness of breath has improved from admission. Denies any further wheezing or chest pain. Does not appear in acute distress. Const alert, oriented x3 and no apparent distress HEENT normocephalic, head/scalp atraumatic and hearing grossly normal bilaterally Eyes PERRL, EOMs intact bilaterally and conjunctivae normal Neck no lymphadenopathy, supple and no JVD Resp normal respiratory effort, no retractions and no use of accessory muscles Cardio regular rate, regular rhythm and no JVD GI normal to inspection, nondistended, normoactive bowel sounds and soft to palpation Extremity normal to inspection, full ROM and no clubbing, cyanosis or edema Skin no rashes or lesions noted, no wounds and skin turgor normal Neuro CN's II-XII intact bilaterally Psych affect normal Weight / BMI Weight Weight: 127 lb 6.835 oz Body Mass Index (BMI) 21.1 ABG / Lab / Microbiology Data Result Diagrams: 11/25/21 05:38 11/25/21 05:38 Laboratory: Laboratory Results - last 24 hr 11/24/21 09:30: B-Natriuretic Peptide 308.5 H 11/24/21 13:25: Troponin I High Sens 154 H* 11/24/21 15:40: Troponin I High Sens 172 H* 11/25/21 05:38: WBC 8.2, RBC 3.36 L, Hgb 9.6 L, Hct 29.9 L, MCV 89.0, MCH 28.6, MCHC 32.1, RDW Std Deviation 54.7 H, RDW Coeff of Carey 16.8 H, Plt Count 155, MPV 9.7, Immature Gran % (Auto) 0.600, Neut % (Auto) 95.0 H, Lymph % (Auto) 2.6 L, [place] % (Auto) 1.8, Eos % (Auto) 0.0, Baso % (Auto) 0.0, Absolute Neuts (auto) 7.8 H, Absolute Lymphs (auto) 0.21 L, Nucleated RBC % 0, Anisocytosis 1+ 11/25/21 05:38: Sodium 139, Potassium 3.7, Chloride 106, Carbon Dioxide 25.0, Anion Gap 8, BUN 32 H, Creatinine 1.12 H, Estim Creat Clear Calc 33.51, Est GFR (MDRD) Af Amer 60, Est GFR (MDRD) Non-Af 49 L, BUN/Creatinine Ratio 28.6 H, Glucose 147 H, Calcium 8.1 L, Total Bilirubin 0.80, AST 54 H, ALT 81 H, Alkaline Phosphatase 106, Total Protein 5.9 L, Albumin 2.7 L, Globulin 3.2, Albumin/Globulin Ratio 0.8 L Microbiology: Microbiology 11/24/21 10:45 Urine, Clean Catch Urine Culture - Final Mixed Gram Positive Organisms 11/24/21 09:30 Nasal Secretion SARS-CoV-2 & FLU Antigen (Rapid) - Final Influenzae A Radiography Diagnostic Testing: Radiology Impression Echocardiogram 11/24/21 13:34 Interpretation Summary Left ventricular systolic function is normal. The estimated ejection fraction is 60 %. The left atrium is moderately enlarged. The right atrium is mildly enlarged. An annuloplasty ring is noted in the mitral position. MIld (1+) transvalvular insufficiency of the mitral valve. An annuloplasty ring is noted in the tricuspid position. Mild transvalvular insufficiency of the tricuspid valve. Trivial pulmonic valve insufficiency. Small pericardial effusion. There are no echocardiographic indications of cardiac tamponade. Echolucency compatible with a pleural effusion. Right ventricular systolic pressure estimated to be 32 mmHg. Unable to assess diastolic dysfunction. Ordering Physician: Sujata Lopez Referring Physician: Cielo Ribeiro Performed By: Rosaura Biggs, RDCS, RVT D/C Instructions Discharge Diet: No restrictions Weight Bearing Status: Weight bearing as tolerated Call your doctor if you observe: Fever of 101 or Higher, Numbness or Tingling, Shortness of breath, Dizziness, Chest pain, Increased palpitations (irregular heartbeat) and Calf discomfort Please Follow Up With: Primary care provider When: Within the next two weeks. Meaningful Use Info Meaningful Use Diagnoses (Choose all that apply): None applicable Discharge Plan Admission Admit Date/Time: 11/24/21 11:55 Primary Reason for Your Visit: Shortness of breath Attending Provider: Constance Ellington Primary Care Provider: Cielo Ribeiro Instructions Additional Instructions / Restrictions: * Hold taking your 5mg tablet of Prednisone, resume when your 40mg prescription is complete. * Continue to wear a mask around others for another 5 days after discharging from the hospital to prevent spread of Flu A. Discharge Orders/Prescriptions Prescriptions: New oseltamivir 30 mg Capsule 30 mg PO BID Qty: 10 RF: 0 prednisone 20 mg tablet 40 mg PO DAILY Qty: 10 RF: 0 Continued aspirin [Adult Low Dose Aspirin] 81 mg tablet,delayed release (DR/EC) 81 mg PO QDAY RF: 0 montelukast 10 MG tablet 10 mg PO DAILY RF: 0 albuterol sulfate 6.7 GM HFA aerosol inhaler 2 puff IH 4X/DAY PRN PRN (Reason: Sob &/Or Wheezing) RF: 0 trazodone 50 MG tablet 50 mg PO QHS RF: 0 biotin 10,000 MCG capsule 5,000 mcg PO BID RF: 0 furosemide 20 MG tablet 20 mg PO DAILY RF: 0 apixaban 2.5 MG tablet 2.5 mg PO BID RF: 0 beclomethasone dipropionate 1 PUFF inhaler 2 puff INHALATION BID RF: 0 metoprolol succinate 25 MG tablet extended release 24 hr 25 mg PO BID Qty: 0 RF: 0 Held prednisone 1 MG tablet 5 mg PO DAILY RF: 0 Hold Instructions: Hold while taking 40mg Prednisone, resume thereafter. Referrals / Follow Up: Jw Rodriguez MD [STAFF PHYSICIAN] - 02/23/22 2:00 pm Cielo Ribeiro MD [Primary Care Provider] - Within 1 Week Disposition Disposition (needs filled in before D/C Order can be placed): Home, Self Care Documented by User: Dr. Constance Ellington MD 11/25/21 14:25 Providers Date of Admission: 11/24/21 Reason For Visit: HYPOXIA / INFLUENZA Medications at Discharge Home Medications albuterol sulfate 2 puff IH 4X/DAY PRN PRN 05/14/13 montelukast 10 mg PO DAILY 05/14/13 aspirin 81 mg tablet,delayed release 81 mg PO QDAY tab 09/21/17 apixaban 2.5 mg PO BID 08/29/20 beclomethasone dipropionate 2 puff INHALATION BID 08/29/20 biotin 5,000 mcg PO BID 08/29/20 furosemide 20 mg PO DAILY 08/29/20 prednisone 5 mg PO DAILY 08/29/20 trazodone 50 mg PO QHS 08/29/20 metoprolol succinate 25 mg PO BID #0 tab 11/25/21 oseltamivir 30 mg PO BID #10 cap 11/25/21 prednisone 40 mg PO DAILY #10 tab 11/25/21 ABG / Lab / Microbiology Data Result Diagrams: 11/25/21 05:38 11/25/21 05:38 Discharge Plan Admission Admit Date/Time: 11/24/21 11:55 Primary Reason for Your Visit: Shortness of breath Attending Provider: Constance Ellington Primary Care Provider: Cielo Ribeiro Instructions Additional Instructions / Restrictions: * Hold taking your 5mg tablet of Prednisone, resume when your 40mg prescription is complete. * Continue to wear a mask around others for another 5 days after discharging from the hospital to prevent spread of Flu A. Discharge Orders/Prescriptions Prescriptions: New oseltamivir 30 mg Capsule 30 mg PO BID Qty: 10 RF: 0 prednisone 20 mg tablet 40 mg PO DAILY Qty: 10 RF: 0 Continued aspirin [Adult Low Dose Aspirin] 81 mg tablet,delayed release (DR/EC) 81 mg PO QDAY RF: 0 montelukast 10 MG tablet 10 mg PO DAILY RF: 0 albuterol sulfate 6.7 GM HFA aerosol inhaler 2 puff IH 4X/DAY PRN PRN (Reason: Sob &/Or Wheezing) RF: 0 trazodone 50 MG tablet 50 mg PO QHS RF: 0 biotin 10,000 MCG capsule 5,000 mcg PO BID RF: 0 furosemide 20 MG tablet 20 mg PO DAILY RF: 0 apixaban 2.5 MG tablet 2.5 mg PO BID RF: 0 beclomethasone dipropionate 1 PUFF inhaler 2 puff INHALATION BID RF: 0 metoprolol succinate 25 MG tablet extended release 24 hr 25 mg PO BID Qty: 0 RF: 0 Held prednisone 1 MG tablet 5 mg PO DAILY RF: 0 Hold Instructions: Hold while taking 40mg Prednisone, resume thereafter. Referrals / Follow Up: Jw Rodriguez MD [STAFF PHYSICIAN] - 02/23/22 2:00 pm Cielo Ribeiro MD [Primary Care Provider] - Within 1 Week Disposition Disposition (needs filled in before D/C Order can be placed): Home, Self Care Charges/Coding Addendum Addendum: his patient was seen in conjunction with Roger Stoner NP. I have independently interviewed and examined the patient and reviewed pertinent historical, laboratory, and other data. I have reviewed her note and concur with her documentation 82-year-old female with past medical history of paroxysmal atrial fibrillation, chronic systolic CHF, who presented with shortness of breath that happened a day prior to admission. Patient just returned from [place] 2 days prior to admission and developed upper respiratory symptoms including sore throat, fever, chills, cough, progressive shortness of breath. She admitted to some chest discomfort. Shortness of breath worsened throughout the day. She denied any weight gain. She has been vaccinated for influenza and COVID-19. In the emergency room, she was found to be hypoxic, saturating 85% on room air. She was saturating well on 2 L of oxygen. Her respiratory panel was negative for acute COVID-19 but positive for influenza A. BNP was 308, initial troponin was 28. EKG shows A. fib with RVR. Patient was started on her home metoprolol 25 mg p.o. daily and given a bolus of Cardizem. Patient was continued on IV Solu-Medrol, breathing treatments, Tamiflu, and Lasix. She improved much rapidly than expected for her proposed hospital course. She was off oxygen. She was evaluated for oxygen at discharge and did not qualify. She felt improved. On the day of discharge, there was no new complaints. No acute events overnight. Physical Exam: Gen: Comfortable, not pale, not jaundiced, off oxygen CVS:HS I +II, regular, no murmurs RESP: Diminished at lung bases GI: BS present and normal, soft, nontender, no palpable organs EXT:No edema Time spent coordinating all aspects of patient's care, discussing with nursing, answering questions from patient and his son: 35 minutes Visit Charges Inpatient E&M: 83321 Disch Hosp
== END 2021-11-25 14:12 | disposition home or self-care (01) | DRG 193 ==
LOC: ED 09:48 → PCU 11-25 07:45
PROVIDERS: Nurse Practitioner Family; Admitting Provider Internal Medicine; Emergency Provider Student in an Organized Health Care Education/Training Program; PCP Internal Medicine; Visit Provider Internal Medicine
DX: J10.1 Influenza due to other identified influenza virus with other respiratory manifestations (principal); I50.23 Acute on chronic systolic (congestive) heart failure; I13.0 Hypertensive heart and chronic kidney disease with heart failure and stage 1 through stage 4 chronic kidney disease, or unspecified chronic kidney disease; I27.20 Pulmonary hypertension, unspecified; J96.01 Acute respiratory failure with hypoxia; I48.0 Paroxysmal atrial fibrillation; N18.31 Chronic kidney disease, stage 3a; J45.901 Unspecified asthma with (acute) exacerbation; M79.7 Fibromyalgia; M19.90 Unspecified osteoarthritis, unspecified site; I34.0 Nonrheumatic mitral (valve) insufficiency; Z79.899 Other long term (current) drug therapy; Z79.82 Long term (current) use of aspirin; Z79.01 Long term (current) use of anticoagulants; R91.1 Solitary pulmonary nodule
CPT/HCPCS: 36415; 71045; 80053; 81001; 83605; 83880; 84484; 85025; 85610; 85730; 87040; 87086; 87088; 87428; 93005; 93306; 94640; 96374; 96375; 96376; 97161; 97802; 99218; 99251; 99285; Q9957; A4216; G0378; G0463; J1940

== ENCOUNTER 2021-12-09 16:20 | Emergency (ER) | payer MEDICARE, SELFPAY ==
[2021-12-09 16:21] VITALS: BP 111/93; PULSE 123; RESP 26; TEMP 36.9; O2SAT 96; BMI 20.1
--- NOTE | 2021-12-09 16:56 | EKG12_ITS ---
Test Reason : SOB Blood Pressure : / mmHG Vent. Rate : 109 BPM Atrial Rate : 102 BPM P-R Int : 000 ms QRS Dur : 086 ms QT Int : 342 ms P-R-T Axes : 000 -32 076 degrees QTc Int : 460 ms Atrial fibrillation Left axis deviation Nonspecific ST and T wave abnormality Abnormal ECG Confirmed by LANCE REYES, AGAPITO ([id number]), online content editor JAMEE JAMESON ([id number]) on 12/10/2021 10:19:36 AM Referred By: KRYSTEN Confirmed By:AGAPITO LUCAS MD
--- NOTE | 2021-12-09 17:10 | ED.RN ---
Per dr sainz, pt does not need lopressor at this time. pts HR is under 100 & BP is 120/82.
[2021-12-09 17:12] LABS: Absolute Lymphocyte Count 0.83 X10^3/uL (0.83-4.51); Absolute Neutrophil Count 7.1 X10^3/uL (2.0-7.7); Basophil# 0.03 X10^3/uL; Basophil% 0.3 % (0-1); Eosinophil# 0.03 X10^3/uL; Eosinophils% 0.3 % (0-5); Hemoglobin 11.1 g/dL (12.0-15.0); Lymphocyte # 0.83 X10^3/ul (0.83-4.51); Lymphocyte % 9.5 % (19-41); Mean Corp Hgb Conc 30.8 g/dL (32-36); Mean Corpuscular Hgb 28.2 pg (27.0-32.0); Mean Corpuscular Volume 91.4 fL (81-99); Mean Platelet Vol. 9.3 fl (6.2-12.0); Monocyte# 0.64 X10^3/uL; Monocyte% 7.3 % (0-10); NRBC Flagged by Analyzer 0 % (0-5); Neutrophil # 7.14 X10^3/uL (2.7-7.7); Neutrophil % 81.9 % (47-70); Platelet Count 273 K/mm3 (150-450); RBC Distribution Width CV 16.4 % (11.6-14.6); RBC Distribution Width SD 55.5 fl (35.1-43.9); Red Blood Count 3.94 M/mm3 (4.2-5.4); White Blood Count 8.7 K/mm3 (4.4-11.0)
[2021-12-09 17:13] VITALS: BP 138/96; PULSE 98; RESP 14; O2SAT 97
--- NOTE | 2021-12-09 17:18 | RAD_ITS ---
INDICATION: Shortness of Breath EXAMINATION/TECHNIQUE: X-RAY - XR Chest 2 Views COMPARISON: 11/24/2021 FINDINGS: LIFE-SUPPORT AND LINES: 1. Mediastinal wires, vascular clips, atrial appendage clip and prosthetic valve ring noted. 2. No pneumothorax HEART AND VESSELS: Cardiac silhouette is unchanged LUNGS AND PLEURAL SPACES: Diffuse by basilar interstitial prominence and atelectasis. Bilateral pleural fluid collections noted. Findings likely represent sequelae of resolving interstitial edema with only minimal residua. No pulmonary mass is noted. MEDIASTINUM AND HILAR REGIONS: No masses adenopathy noted. No areas of calcification. Visualized upper airway is normal in position. BONY ELEMENTS: No acute bony changes noted. RAD/Chest PA and Lateral IMPRESSION: 1. Postop changes as detailed. 2. No evidence of acute congestive failure, however interstitial prominence at the lung bases and small bilateral effusions which may represent sequelae of resolving edema. 3. No consolidation Electronically Signed: Ruel Batres MD at 17:58 EDT ,
[2021-12-09 17:32] LABS: BNP,B-Type NATRIURETIC PEPTIDE 192.4 pg/mL (0-100)
[2021-12-09 17:35] LABS: Anion Gap 8 (5-15); BUN 22 mg/dL (7-18); BUN/Creat Ratio 20.4 RATIO (10-20); Chloride 105 mmol/L (98-107); Creatinine, Serum 1.08 mg/dL (0.55-1.02); EST Glomerular Filtration Rate 51 mL/min (>60); Est Glom Filt Rate - Afr Amer 62 mL/min (>60); Estimated Creatinine Clearance 34.09 ml/min; Glucose 103 mg/dL (74-106); Potassium 3.8 mmol/L (3.5-5.1); Sodium Level 139 mmol/L (136-145); Troponin-I HS 10 pg/mL (3.0-54.0)
--- NOTE | 2021-12-09 19:42 | ED.VIS.DYS ---
HPI History of Present Illness Chief Complaint: Shortness of Breath Narrative Narrative: Patient presents with shortness of breath that she has had for 2 weeks. She and her son relate history that she had influenza and was admitted to the hospital because of low oxygen level. She did not go home on oxygen. She states she was in [place] never had problems with her asthma. She took her pulse ox at home today and was reportedly in the 80s. She was told to come to the emergency department for evaluation. She has had a cough and states that she cannot seem to shake her shortness of breath and dyspnea on exertion. She does have a past medical history of CHF as well. She denies any leg swelling. No chest pain or other symptoms. [facility] Medical History Arthritis Ascending aorta dilatation Asthma Fibromyalgia First degree AV block Nonrheumatic mitral valve regurgitation Nonrheumatic tricuspid valve regurgitation Paroxysmal atrial fibrillation PVCs (premature ventricular contractions) Secondary pulmonary arterial hypertension Home Medications albuterol sulfate 2 puff IH 4X/DAY PRN PRN 05/14/13 [History Last Taken 05/27/13 05:55] montelukast 10 mg PO DAILY 05/14/13 [History Last Taken Unknown] aspirin 81 mg tablet,delayed release 81 mg PO QDAY tab 09/21/17 [History Last Taken Unknown] apixaban 2.5 mg PO BID 08/29/20 [History Last Taken Unknown] beclomethasone dipropionate 2 puff INHALATION BID 08/29/20 [History Last Taken Unknown] biotin 5,000 mcg PO BID 08/29/20 [History Last Taken Unknown] furosemide 20 mg PO DAILY 08/29/20 [History Last Taken Unknown] prednisone 5 mg PO DAILY 08/29/20 [History Last Taken Unknown] metoprolol succinate 25 mg PO BID #0 tab 11/25/21 [Rx Last Taken Unknown] calcium 600 mg PO DAILY 12/09/21 [History Last Taken Unknown] tizanidine 4 mg PO PRN PRN 12/09/21 [History Last Taken Unknown] trazodone 50 mg PO QHS 12/09/21 [History Last Taken Unknown] vitamin A 2,400 mcg PO DAILY 12/09/21 [History Last Taken Unknown] Allergy/AdvReac Type Severity Reaction Status Date / Time No Known Allergies Allergy Verified 12/09/21 16:24 Family History Unknown No problems noted. Mother , at age 102 No cardiac disease Father Dementia Surgical History H/O mitral valve repair History of bilateral hip replacements History of hysterectomy History of tonsillectomy Hx of cholecystectomy Social History household members: none Smoking Status: Never smoker substance use type: does not use ROS ROS ED ROS Narrative Constitutional: No fever, no chills. Low pulse ox at home in the 80s. HEENT: No sore throat. No neck pain. No loss of vision. No rhinorrhea. Cardiovascular: No chest pain. No palpitations. No pedal edema. Respiratory: Positive cough, positive dyspnea on exertion and shortness of breath. Abdominal: No abdominal pain. No nausea. No vomiting. Genitourinary: No dysuria. No hematuria. Musculoskeletal: No myalgias. No arthralgias. Neurologic: No headaches. No dizziness. No lightheadedness. Skin: No rash. No change in color. Psychiatric: No depression. No anxiety. EXAM Physical Exam Narrative Exam Narrative: Afebrile. Vital signs noted. HEENT: Normocephalic. Atraumatic. PERRL, EOMI. Neck soft and supple. No point tenderness or step off. Cardiovascular: Regular rate and rhythm. No murmurs, rubs, or gallops appreciated. Respiratory: No tachypnea. Lungs clear to auscultation bilaterally. Occasional cough on examination. Gastrointestinal: Abdomen soft, nontender, with normoactive bowel sounds. No rebound or guarding. Neurological: Awake. Alert. Nonfocal, nonlateralizing. Skin: No rash. Normal color. No pallor. Musculoskeletal: No pedal edema. Full range of motion extremities. Const Vital Signs: 12/09/21 16:21 12/09/21 17:13 12/09/21 18:17 Temperature 98.5 F Temperature Source Temporal Pulse Rate 123 H 98 Respiratory Rate 26 H 14 Respiratory Depth Normal Respiratory Pattern Normal Blood Pressure 111/93 H 138/96 H Blood Pressure Mean 99 110 Pulse Ox 96 97 Oxygen Delivery Method Room Air Room Air MDM MDM MDM Narrative Medical decision making narrative: Comprehensive work-up was pursued. Her EKG demonstrates atrial fibrillation at 109 bpm. I did order Lopressor 5 mg intravenously because she had a heart rate of the 120's in triage, but has come down to normal on its own. CBC is grossly normal with a normal white count of 8.7, hemoglobin slightly low 11.1, platelet count normal at 273. Electrolyte panel is grossly unremarkable except for elevated BUN of 22 and slightly elevated creatinine of 1.08. Glucose normal at 103. High-sensitivity troponin normal at 10. Although her BNP is elevated at 192, it has been in the 300s previously. I interpreted her chest x-ray and I see no evidence of consolidation or pneumonia. No pneumothorax. She may have small bilateral pleural effusions. Her pulse ox here is 96 to 97% on room air. At this point in time, I do not feel she meets any observation or admission criteria. She has a normal pulse ox here. She will use her inhaler that she has at home for asthma and follow-up with her new supervisor telephone answering service as she states her old one is retiring at the end of the month. Return instructions to the emergency department were reviewed. Disposition is discharged home in stable condition. Lab Data Attestation: I reviewed the patient's lab results. Labs: Laboratory Results - last 24 hr 12/09/21 12/09/21 12/09/21 17:05 17:05 17:05 WBC 8.7 RBC 3.94 L Hgb 11.1 L Hct 36.0 L MCV 91.4 MCH 28.2 MCHC 30.8 L RDW Std Deviation 55.5 H RDW Coeff of Carey 16.4 H Plt Count 273 MPV 9.3 Immature Gran % (Auto) 0.700 Neut % (Auto) 81.9 H Lymph % (Auto) 9.5 L [place] % (Auto) 7.3 Eos % (Auto) 0.3 Baso % (Auto) 0.3 Absolute Neuts (auto) 7.1 Absolute Lymphs (auto) 0.83 Nucleated RBC % 0 Sodium 139 Potassium 3.8 Chloride 105 Carbon Dioxide 26.0 Anion Gap 8 BUN 22 H Creatinine 1.08 H Estim Creat Clear Calc 34.09 Est GFR (MDRD) Af Amer 62 Est GFR (MDRD) Non-Af 51 L BUN/Creatinine Ratio 20.4 H Glucose 103 Calcium 10.0 Troponin I High Sens 10 B-Natriuretic Peptide 192.4 H Radiography Diagnostic Testing: Clinical Impression(s) from Imaging Studies Chest X-Ray 12/09/21 17:18 IMPRESSION: 1. Postop changes as detailed. 2. No evidence of acute congestive failure, however interstitial prominence at the lung bases and small bilateral effusions which may represent sequelae of resolving edema. 3. No consolidation Electronically Signed: Ruel Batres MD at 17:58 EDT , Discharge Plan Triage Chief Complaint: Shortness of Breath ED Provider: Arya Espino Dx/Rx/DC Orders Clinical Impression: AMBRIZ (dyspnea on exertion), SOB (shortness of breath), Asthma Instructions: ED Dyspnea, ED Inhaler Use Prescriptions: No Action aspirin [Adult Low Dose Aspirin] 81 mg tablet,delayed release (DR/EC) 81 mg PO QDAY RF: 0 montelukast 10 MG tablet 10 mg PO DAILY RF: 0 albuterol sulfate 6.7 GM HFA aerosol inhaler 2 puff IH 4X/DAY PRN PRN (Reason: Sob &/Or Wheezing) RF: 0 prednisone 1 MG tablet 5 mg PO DAILY RF: 0 Hold Instructions: Hold while taking 40mg Prednisone, resume thereafter. biotin 10,000 MCG capsule 5,000 mcg PO BID RF: 0 furosemide 20 MG tablet 20 mg PO DAILY RF: 0 apixaban 2.5 MG tablet 2.5 mg PO BID RF: 0 beclomethasone dipropionate 1 PUFF inhaler 2 puff INHALATION BID RF: 0 metoprolol succinate 25 MG tablet extended release 24 hr 25 mg PO BID Qty: 0 RF: 0 calcium 600 mg Capsule 600 mg PO DAILY RF: 0 vitamin A 2,400 mcg Capsule 2,400 mcg PO DAILY RF: 0 trazodone 50 mg Tablet 50 mg PO QHS RF: 0 tizanidine 4 mg tablet 4 mg PO PRN PRN (Reason: Anxiety) RF: 0 Primary Care Provider: Cielo Ribeiro Referrals: Cielo Ribeiro MD [Primary Care Provider] - 3-5 Days if not improving Activity Restrictions/Additional Instructions: Use your inhaler every 4-6 hours as needed. Follow-up with your new supervisor telephone answering service as soon as possible. Disposition Disposition: Home, Self Care Discharge Date/Time: 12/09/21 19:47
== END 2021-12-09 19:47 | disposition home or self-care (01) ==
PROVIDERS: Emergency Provider Emergency Medicine; PCP Internal Medicine; Visit Provider Emergency Medicine
DX: R06.00 Dyspnea, unspecified (principal); I50.9 Heart failure, unspecified; R06.02 Shortness of breath; J45.909 Unspecified asthma, uncomplicated; Z79.82 Long term (current) use of aspirin; Z79.899 Other long term (current) drug therapy; Z79.01 Long term (current) use of anticoagulants
CPT/HCPCS: 71046; 80048; 83880; 84484; 85025; 93005; 99283

== ENCOUNTER 2021-12-26 19:08 | Observation (INO) | payer MEDICARE, SELFPAY ==
[2021-12-26 19:09] VITALS: BP 150/131; PULSE 123; RESP 16; TEMP 38.6; O2SAT 94; BMI 19.5
[2021-12-26 19:21] VITALS: BP 115/73; PULSE 117; RESP 20; O2SAT 96
--- NOTE | 2021-12-26 19:47 | RAD_ITS ---
STUDY: X-RAY CHEST REASON FOR EXAM: Female, 86 years old. fever TECHNIQUE: AP portable COMPARISON: 12/09/2021 FINDINGS: Small right pleural effusion and right lower lobe infiltrate. Tiny left pleural effusion. Postop change status post median sternotomy and valve replacement Heart is enlarged. Normal mediastinum and valarie. Normal visualized pulmonary arteries. Mildly calcified aortic arch and descending thoracic aorta. Dorsal spine and shoulders demonstrate degenerative change. Normal visualized ribs, and clavicles. There is no demonstrated abnormality of the visualized soft tissue structures of the upper abdomen. RAD/Chest 1 View (Portable) IMPRESSION: Small bilateral effusions slightly larger on the right with right lower lobe infiltrate or atelectasis. Electronically Signed: Maciel Nava MD at 21:07 EDT ,
--- NOTE | 2021-12-26 19:47 | EDS_ITS ---
HPI History of Present Illness Chief Complaint: General Illness Informant: patient Onset/Context/Timing Onset: Days Context: Gradual Onset Timing: Continuous Current Severity: Mild Maximum Severity: Moderate Narrative Narrative: 86-year-old female history of A. fib, CHF recent shingles and a history of polymyalgia rheumatica. She had influenza in November really has not been feeling well. Had to be hospitalized in the last several weeks. States that she was diagnosed with shingles in the last several weeks. She is already on chronic prednisone for polymyalgia rheumatica. She is also been placed on gabapentin for pain and oxycodone. States she has diffuse body aches. She denies any cough or shortness of breath. No chest pain or abdominal pain. States that the shingles on her left lower flank and abdomen and back are improving. She denies any dysuria. No diarrhea. Prior similar symptoms: No Recent Illness/Hospitalization: Yes [facility] Medical History Arthritis Ascending aorta dilatation Asthma Fibromyalgia First degree AV block Nonrheumatic mitral valve regurgitation Nonrheumatic tricuspid valve regurgitation Paroxysmal atrial fibrillation PVCs (premature ventricular contractions) Secondary pulmonary arterial hypertension Home Medications albuterol sulfate 2 puff IH 4X/DAY PRN PRN 05/14/13 [History Last Taken 05/27/13 05:55] montelukast 10 mg PO DAILY 05/14/13 [History Last Taken Unknown] aspirin 81 mg tablet,delayed release 81 mg PO QDAY tab 09/21/17 [History Last Taken Unknown] apixaban 2.5 mg PO BID 08/29/20 [History Last Taken Unknown] beclomethasone dipropionate 2 puff INHALATION BID 08/29/20 [History Last Taken Unknown] biotin 5,000 mcg PO DAILY 08/29/20 [History Last Taken Unknown] furosemide 20 mg PO DAILY 08/29/20 [History Last Taken Unknown] prednisone 5 mg PO DAILY 08/29/20 [History Last Taken Unknown] metoprolol succinate 25 mg PO BID #0 tab 11/25/21 [Rx Last Taken Unknown] calcium 600 mg PO DAILY 12/09/21 [History Last Taken Unknown] tizanidine 4 mg PO PRN PRN 12/09/21 [History Last Taken Unknown] trazodone 50 mg PO QHS 12/09/21 [History Last Taken Unknown] vitamin A 2,400 mcg PO DAILY 12/09/21 [History Last Taken Unknown] gabapentin 100 mg PO BID 12/26/21 [History Last Taken Unknown] oxycodone 5 mg PO BID 12/26/21 [History Last Taken Unknown] Allergy/AdvReac Type Severity Reaction Status Date / Time No Known Allergies Allergy Verified 12/26/21 19:13 Family History Unknown No problems noted. Mother , at age 102 No cardiac disease Father Dementia Surgical History H/O mitral valve repair History of bilateral hip replacements History of hysterectomy History of tonsillectomy Hx of cholecystectomy Social History household members: none Smoking Status: Never smoker substance use type: does not use ROS ROS ED ROS Narrative Body aches. Fever. Shingles. Review of Systems ROS Unobtainable: Denies due to encephalopathy Constitutional Constitutional ED: Reports fever(s) Eyes Eyes: Denies change in vision ENT ENT ED: Denies ear pain, rhinorrhea or sore throat Cardiovascular Cardiovascular: Denies chest pain or palpitations Respiratory/Chest Respiratory/Chest: Denies cough or dyspnea Gastrointestinal Gastrointestinal: Denies abdominal pain, diarrhea, nausea or vomiting Genitourinary Genitourinary ED: Denies dysuria or hematuria Musculoskeletal Musculoskeletal: Reports arthralgias and myalgias; Denies neck pain Integumentary Reports rash; Denies abscess Neurologic Neurologic: Denies headache(s) Psychiatric Psychiatric: Denies depression Endocrine Endocrinology: Denies polyuria Allergic/Immunologic Allergic/Immunologic ED: Denies urticaria EXAM Physical Exam Narrative Exam Narrative: 86-year-old female no acute distress. Vital signs are stable. She has a temperature one 1.5. Does not look septic or toxic. H EENT exam unremarkable. Moist with membranes. No trouble swallowing or breathing. No stridor. Neck nontender no meningismus. No lymphadenopathy. Lungs clear to auscultation bilaterally. Heart tachycardic rate about 110. No murmur. Irregular consistent with A. fib. Abdomen soft nontender normal bowel sounds no peritoneal signs. She does have a shingles resolving rash that is on her left lower abdomen left flank and left lower back. Moving all 4 extremities. She is mild tenderness to her left wrist. There is no signs of septic joint. She is able to do flexion-extension. There is no significant swelling. Neurologically she is awake and alert with no focal motor deficits. Const Vital Signs: 12/26/21 19:09 12/26/21 19:19 12/26/21 19:21 Temperature 101.5 F H Temperature Source Temporal Pulse Rate 123 H 117 H Respiratory Rate 16 20 H Respiratory Pattern Normal Blood Pressure 150/131 H 115/73 Blood Pressure Mean 137 87 Pulse Ox 94 96 Oxygen Delivery Method Room Air Room Air 12/26/21 21:55 Temperature 99.0 F Temperature Source Oral Pulse Rate 106 H Respiratory Rate 20 H Respiratory Pattern Blood Pressure 99/57 L Blood Pressure Mean 71 Pulse Ox 95 Oxygen Delivery Method Room Air Positive well nourished and well developed; Negative for obese, cachectic, contractures or unkempt General Appearance ED: well developed and NAD; Negative for unkempt, cachectic, contractures, cyanotic, diaphoretic or pallor Nutritional Appearance: Negative for cachectic or obese HEENT Reports moist mucous membranes Negative for trauma or tenderness Eyes PERRL and EOMs intact bilaterally General Eye ED: Negative for pale conjunctiva or scleral icterus Neck no lymphadenopathy, supple and no JVD General: Negative for tenderness Chest Wall inspection of chest normal and palpation of chest normal Resp normal respiratory effort and clear to auscultation bilaterally Effort and Inspection: Negative for pain with movement Auscultation: Negative for rales, rhonchi or wheezes Cardio regular rhythm, S1 normal heart sound, S2 normal heart sound and no murmurs; Negative for regular rate Cardio Narrative: A. fib rate about 115. Rate: tachycardic GI normal to inspection, nondistended, normoactive bowel sounds, non-tender, non- distended and no masses Inspection: Negative for abdominal distention Auscultation: normoactive bowel sounds Palpation: soft; Negative for tender, guarding or rebound tenderness present Back/Spine no CVA tenderness General Back: Negative for CVA tenderness Cervical Spine: Negative for cervical spine tenderness Thoracic Spine / Upper Back: Negative for thoracic spinal tenderness or p araspinal muscle tenderness Extremity normal to inspection Extremity Narrative: Left wrist tenderness. No swelling. No edema. General Extremety ED: Yes tenderness; Negative for edema General Extremity: Negative for edema Neuro oriented x3 Sensorium / Orientation: alert; Negative for orientation impaired, lethargic or stuporous Motor Exam: strength 5/5 throughout Psych mental status grossly normal Appearance: Negative for unkempt Attitude: No agitated Mood & Affect: Negative for depressed, anxious or tearful Skin No no rashes or lesions noted and no wounds Skin Narrative: Left lower back, flank and abdomen resolving shingles. General Skin Exam: Negative for jaundice or pallor MDM MDM MDM Narrative Medical decision making narrative: 86-year-old female history of fibromyalgia, A. fib and recent shingles. Complaining of body aches and fever. Infectious work-up will be performed. She will be treated with IV fluids and Tylenol. Lab Data Attestation: I reviewed the patient's lab results. Lab results narrative: CBC shows a white count 13.6. H&H 11.4 and 35.4. Electrolytes show sodium 132 gap at 9 BUN and creatinine of 20 and 1. Glucose of 110. UA negative. No nitrates. No white or red cells. No bacteria. Lactic acid normal 1.4. Labs: Laboratory Results - last 24 hr 12/26/21 12/26/21 12/26/21 20:05 20:05 20:05 WBC 13.6 H RBC 3.93 L Hgb 11.4 L Hct 35.4 L MCV 90.1 MCH 29.0 MCHC 32.2 RDW Std Deviation 53.9 H RDW Coeff of Carey 16.4 H Plt Count 314 MPV 9.6 Immature Gran % (Auto) 0.700 Neut % (Auto) 77.4 H Lymph % (Auto) 5.9 L [place] % (Auto) 11.9 H Eos % (Auto) 3.9 Baso % (Auto) 0.2 Absolute Neuts (auto) 10.5 H Absolute Lymphs (auto) 0.80 L Nucleated RBC % 0 Sodium 132 L Potassium 3.7 Chloride 96 L Carbon Dioxide 27.0 Anion Gap 9 BUN 20 H Creatinine 1.05 H Estim Creat Clear Calc 33.94 Est GFR (MDRD) Af Amer 64 Est GFR (MDRD) Non-Af 53 L BUN/Creatinine Ratio 19.0 Glucose 110 H Lactic Acid 1.4 Calcium 9.6 Urine Color Urine Clarity Urine pH Ur Specific [place] Urine Protein Urine Glucose (UA) Urine Ketones Urine Occult Blood Urine Nitrite Urine Bilirubin Urine Urobilinogen Ur Leukocyte Esterase Urine RBC Urine WBC Ur Squamous Epith Cells Urine Bacteria Urine Mucus 12/26/21 20:15 WBC RBC Hgb Hct MCV MCH MCHC RDW Std Deviation RDW Coeff of Carey Plt Count MPV Immature Gran % (Auto) Neut % (Auto) Lymph % (Auto) [place] % (Auto) Eos % (Auto) Baso % (Auto) Absolute Neuts (auto) Absolute Lymphs (auto) Nucleated RBC % Sodium Potassium Chloride Carbon Dioxide Anion Gap BUN Creatinine Estim Creat Clear Calc Est GFR (MDRD) Af Amer Est GFR (MDRD) Non-Af BUN/Creatinine Ratio Glucose Lactic Acid Calcium Urine Color Yellow Urine Clarity Clear Urine pH 7.0 Ur Specific [place] 1.005 Urine Protein Negative Urine Glucose (UA) Normal Urine Ketones Negative Urine Occult Blood 25 H Urine Nitrite Negative Urine Bilirubin Negative Urine Urobilinogen 1 H Ur Leukocyte Esterase Negative Urine RBC 0-5 SEEN Urine WBC 0-5 SEEN Ur Squamous Epith Cells 0-5 SEEN Urine Bacteria 0 SEEN Urine Mucus 0 SEEN Radiography Chest X-Ray - ED: 1 View, Read by ED Physician, Heart, Mediastinum, Bony Structures, No Acute Disease and Chronic Changes Diagnostic Testing: Clinical Impression(s) from Imaging Studies Chest X-Ray 12/26/21 19:47 IMPRESSION: Small bilateral effusions slightly larger on the right with right lower lobe infiltrate or atelectasis. Electronically Signed: Maciel Nava MD at 21:07 EDT Reading Location ID and State: [facility] / [place] , Service support , Chest portable, single view interpreted by myself shows atelectasis in the right lower lung. Cannot rule out effusion. Cannot rule out infiltrate. However this is been seen on prior x-rays. Appears to be chronic. Also read by the radiologist. Rhythm Strip Rhythm Strip: A-fib Rate: 114 Ectopy: None EKG Initial EKG: Attestation: I personally reviewed and interpreted this EKG as follows: Interpretation: Atrial Fibrillation Comments: Atrial fibrillation rate of 114 no acute signs of TN or ischemia. History of A. fib. Discharge Plan Triage Chief Complaint: General Illness ED Provider: David Ahn Dx/Rx/DC Orders Prescriptions: No Action aspirin [Adult Low Dose Aspirin] 81 mg tablet,delayed release (DR/EC) 81 mg PO QDAY RF: 0 montelukast 10 MG tablet 10 mg PO DAILY RF: 0 albuterol sulfate 6.7 GM HFA aerosol inhaler 2 puff IH 4X/DAY PRN PRN (Reason: Sob &/Or Wheezing) RF: 0 prednisone 1 MG tablet 5 mg PO DAILY RF: 0 Hold Instructions: Hold while taking 40mg Prednisone, resume thereafter. biotin 10,000 MCG capsule 5,000 mcg PO DAILY RF: 0 furosemide 20 MG tablet 20 mg PO DAILY RF: 0 apixaban 2.5 MG tablet 2.5 mg PO BID RF: 0 beclomethasone dipropionate 1 PUFF inhaler 2 puff INHALATION BID RF: 0 metoprolol succinate 25 MG tablet extended release 24 hr 25 mg PO BID Qty: 0 RF: 0 calcium 600 mg Capsule 600 mg PO DAILY RF: 0 vitamin A 2,400 mcg Capsule 2,400 mcg PO DAILY RF: 0 trazodone 50 mg Tablet 50 mg PO QHS RF: 0 tizanidine 4 mg tablet 4 mg PO PRN PRN (Reason: Anxiety) RF: 0 gabapentin 100 mg capsule 100 mg PO BID RF: 0 oxycodone 5 mg tablet 5 mg PO BID RF: 0 Primary Care Provider: Cielo Ribeiro
--- NOTE | 2021-12-26 19:53 | EKG12_ITS ---
Test Reason : DYSRYTHMIA Blood Pressure : / mmHG Vent. Rate : 114 BPM Atrial Rate : 115 BPM P-R Int : 000 ms QRS Dur : 086 ms QT Int : 302 ms P-R-T Axes : 000 -63 083 degrees QTc Int : 416 ms Atrial fibrillation Left anterior fascicular block Abnormal ECG Present Confirmed by LANCE REYES, AGAPITO ([id number]), scientific publications editor SHREYAS MATTHEWS ([id number]) on 12/27/2021 11:25:21 AM Referred By: DEONTE Confirmed By:AGAPITO LUCAS MD
[2021-12-26] MEDS: Acetaminophen 500 MG Tablet 1000 MG PO (19:54)
[2021-12-26] MEDS: 0.9% Normal Saline 1,000 ML 1000 ML IV (20:08)
[2021-12-26 20:26] LABS: Bacteria 0 SEEN /hpf (None Seen); Mucous, Urine 0 SEEN /hpf (<or=2+)
[2021-12-26 20:29] LABS: Absolute Neutrophil Count 10.5 X10^3/uL (2.0-7.7); Basophil# 0.03 X10^3/uL; Basophil% 0.2 % (0-1); Eosinophil# 0.53 X10^3/uL; Eosinophils% 3.9 % (0-5); Hematocrit 35.4 % (37-47); Hemoglobin 11.4 g/dL (12.0-15.0); Lymphocyte % 5.9 % (19-41); Mean Corp Hgb Conc 32.2 g/dL (32-36); Mean Corpuscular Volume 90.1 fL (81-99); Mean Platelet Vol. 9.6 fl (6.2-12.0); Monocyte# 1.61 X10^3/uL; Monocyte% 11.9 % (0-10); NRBC Flagged by Analyzer 0 % (0-5); Neutrophil # 10.51 X10^3/uL (2.7-7.7); Neutrophil % 77.4 % (47-70); POSITIVE DIFFERENTIAL YES; Platelet Count 314 K/mm3 (150-450); RBC Distribution Width CV 16.4 % (11.6-14.6); RBC Distribution Width SD 53.9 fl (35.1-43.9); Red Blood Count 3.93 M/mm3 (4.2-5.4); White Blood Count 13.6 K/mm3 (4.4-11.0)
[2021-12-26 20:31] LABS: Color, Urine Yellow (Yellow); Glucose, Dipstick Normal (Normal); Ketone-Dipstick Negative (Negative); Leukocyte Esterase-Dipstick Negative /ul (Negative); Nitrite-Dipstick Negative (Negative); Occult Blood-Urine 25 /ul (Negative); Protein-Dipstick Negative (Negative); Specific Gravity, Urine 1.005 (1.002-1.030); Urine Bilirubin Dipstick Negative (Negative); Urine Clarity Clear (Clear); Urine Urobilinogen 1 mg/dl (Normal)
[2021-12-26 20:40] LABS: Red Blood Cells-Urine 0-5 SEEN /hpf (0-5); Squamous Epithelial Cells - UA 0-5 SEEN /hpf (5-10); White Blood Cells 0-5 SEEN /hpf (0-5)
[2021-12-26 20:43] LABS: Anion Gap 9 (5-15); BUN 20 mg/dL (7-18); Calcium,Total 9.6 mg/dL (8.5-10.1); Chloride 96 mmol/L (98-107); Creatinine, Serum 1.05 mg/dL (0.55-1.02); EST Glomerular Filtration Rate 53 mL/min (>60); Est Glom Filt Rate - Afr Amer 64 mL/min (>60); Estimated Creatinine Clearance 33.94 ml/min; Glucose 110 mg/dL (74-106); Potassium 3.7 mmol/L (3.5-5.1); Sodium Level 132 mmol/L (136-145)
[2021-12-26 21:01] LABS: Differential Indicated SCAN CRITERIA MET
[2021-12-26 21:09] LABS: Lactic Acid 1.4 mmol/L (0.4-1.9)
[2021-12-26 21:55] VITALS: BP 99/57; PULSE 106; RESP 20; TEMP 37.2; O2SAT 95
[2021-12-26] MEDS: 0.9% Normal Saline 1,000 ML 150 ML IV (22:01)
[2021-12-26 22:33] LABS: Differential Comment SCANNED
--- NOTE | 2021-12-26 22:53 | HP.PCM.HOS_ITS ---
[facility] - General General Date of Admission: 12/26/21 HPI Narrative KAMLESH COLE, is a 86 F with a significant history of proximal A. fib on apixaban; mitral valve and tricuspid valve repair; polymyalgia rheumatica; and fibromyalgia who presents to the emergency department with a 2-week history of persistent generalized pain. Also she has pain in her joints. Her pain is worse in a left wrist. Also patient complains of pain in her face. She thinks she has pain from her nerve endings. Patient is on chronic prednisone 5 mg daily for pulmonary rheumatica. Patient sees a levelman. Discussion was made to increase her prednisone outpatient but patient declined. Patient with reports of fever of about 101 Fahrenheit at home. She denies any shortness of breath. She reports poor appetite. About 3 weeks ago she had influenza A. With her influenza A her prednisone was increased to 40 mg briefly. Also recently patient had shingles. Recently patient was started on oxycodone and gabapentin. At the emergency department patient was found to have a fever of 101.5. [facility] Medical History Arthritis Ascending aorta dilatation Asthma Fibromyalgia First degree AV block Nonrheumatic mitral valve regurgitation Nonrheumatic tricuspid valve regurgitation Paroxysmal atrial fibrillation PVCs (premature ventricular contractions) Secondary pulmonary arterial hypertension Home Medications albuterol sulfate 2 puff IH 4X/DAY PRN PRN 05/14/13 [History Last Taken 05/27/13 05:55] montelukast 10 mg PO DAILY 05/14/13 [History Last Taken Unknown] aspirin 81 mg tablet,delayed release 81 mg PO QDAY tab 09/21/17 [History Last Taken Unknown] apixaban 2.5 mg PO BID 08/29/20 [History Last Taken Unknown] beclomethasone dipropionate 2 puff INHALATION BID 08/29/20 [History Last Taken Unknown] biotin 5,000 mcg PO DAILY 08/29/20 [History Last Taken Unknown] furosemide 20 mg PO DAILY 08/29/20 [History Last Taken Unknown] prednisone 5 mg PO DAILY 08/29/20 [History Last Taken Unknown] metoprolol succinate 25 mg PO BID #0 tab 11/25/21 [Rx Last Taken Unknown] calcium 600 mg PO DAILY 12/09/21 [History Last Taken Unknown] tizanidine 4 mg PO PRN PRN 12/09/21 [History Last Taken Unknown] trazodone 50 mg PO QHS 12/09/21 [History Last Taken Unknown] vitamin A 2,400 mcg PO DAILY 12/09/21 [History Last Taken Unknown] gabapentin 100 mg PO BID 12/26/21 [History Last Taken Unknown] oxycodone 5 mg PO BID 12/26/21 [History Last Taken Unknown] Allergy/AdvReac Type Severity Reaction Status Date / Time No Known Allergies Allergy Verified 12/26/21 19:13 Family History Unknown No problems noted. Mother , at age 102 No cardiac disease Father Dementia Surgical History H/O mitral valve repair History of bilateral hip replacements History of hysterectomy History of tonsillectomy Hx of cholecystectomy Social History household members: none Smoking Status: Never smoker substance use type: does not use ROS ROS Narrative Pertinent positives and pertinent negatives as noted in HPI. All other systems were reviewed and are negative. Vital Signs Vital Signs Vital Signs: 12/26/21 19:09 12/26/21 19:19 12/26/21 19:21 Temperature 101.5 F H Temperature Source Temporal Pulse Rate 123 H 117 H Respiratory Rate 16 20 H Respiratory Pattern Normal Blood Pressure 150/131 H 115/73 Blood Pressure Mean 137 87 Pulse Ox 94 96 Oxygen Delivery Method Room Air Room Air 12/26/21 21:55 Temperature 99.0 F Temperature Source Oral Pulse Rate 106 H Respiratory Rate 20 H Respiratory Pattern Blood Pressure 99/57 L Blood Pressure Mean 71 Pulse Ox 95 Oxygen Delivery Method Room Air Weight Weight: 54.885 kg Body Mass Index (BMI) 19.5 Physical Exam Narrative Physical exam: General: Well-nourished, well-developed. Head: Normocephalic, atraumatic, no tenderness Eyes: Vision is grossly intact. EOMI ENT, no trauma, moist mucous membranes, no rhinorrhea Neck: Nontender, full range of motion, no spinal tenderness, deformities, step- off CVS: Regular rate and rhythm. S1-S2 present. No murmur, gallop or rub. Respiratory : Bibasilar Rales, chest wall nontender, no wheezing Abdomen: Soft, nontender, nondistended, normal bowel sounds, no masses : Deferred Back: Nontender, no CVA tenderness, no midline spinal tenderness, deformities, step-offs Extremities: Left wrist with mild erythema and tenderness. Right wrist with no erythema or tenderness. Skin: Left flank with a crusted rashes extending to left lower abdomen. Normal color, no trauma, abrasions Neuro: Alert, oriented, cranial nerves II through XII grossly intact. Psychiatry: Normal mood. Normal affect. Not depressed. Not anxious. Results Lab / Micro Data Result Diagrams: 12/26/21 20:05 12/26/21 20:05 Labs: Laboratory Results - last 24 hr 12/26/21 20:05: WBC 13.6 H, RBC 3.93 L, Hgb 11.4 L, Hct 35.4 L, MCV 90.1, MCH 29.0, MCHC 32.2, RDW Std Deviation 53.9 H, RDW Coeff of Carey 16.4 H, Plt Count 314, MPV 9.6, Immature Gran % (Auto) 0.700, Neut % (Auto) 77.4 H, Lymph % (Auto) 5.9 L, [place] % (Auto) 11.9 H, Eos % (Auto) 3.9, Baso % (Auto) 0.2, Absolute Neuts (auto) 10.5 H, Absolute Lymphs (auto) 0.80 L, Nucleated RBC % 0, Differential Comment SCANNED 12/26/21 20:05: Sodium 132 L, Potassium 3.7, Chloride 96 L, Carbon Dioxide 27.0, Anion Gap 9, BUN 20 H, Creatinine 1.05 H, Estim Creat Clear Calc 33.94, Est GFR (MDRD) Af Amer 64, Est GFR (MDRD) Non-Af 53 L, BUN/Creatinine Ratio 19.0, Glucose 110 H, Calcium 9.6 12/26/21 20:05: Lactic Acid 1.4 12/26/21 20:15: Urine Color Yellow, Urine Clarity Clear, Urine pH 7.0, Ur Specific [place] 1.005, Urine Protein Negative, Urine Glucose (UA) Normal, Urine Ketones Negative, Urine Occult Blood 25 H, Urine Nitrite Negative, Urine Bilirubin Negative, Urine Urobilinogen 1 H, Ur Leukocyte Esterase Negative, U rine RBC 0-5 SEEN, Urine WBC 0-5 SEEN, Ur Squamous Epith Cells 0-5 SEEN, Urine Bacteria 0 SEEN, Urine Mucus 0 SEEN Micro: Microbiology 12/26/21 20:15 Nasal Secretion SARS-CoV-2 Antigen (Rapid) - Final Rhythm Strip Rhythm Strip: A-fib Rate: 114 Ectopy: None Radiology Impression Chest X-Ray 12/26/21 19:47 IMPRESSION: Small bilateral effusions slightly larger on the right with right lower lobe infiltrate or atelectasis. Electronically Signed: Maciel Nava MD at 21:07 EDT Reading Location ID and State: [facility] / [place] , Service support , Assessment & Plan Assessment/Plan (1) Polymyalgia rheumatica: PLAN: Acute flare of polymyalgia rheumatica Chest x-ray was visualized and independent interpreted and I agree with radiologist interpretation above. CBC showed white count of 13.6. Of note patient is on steroids. However while patient has been on chronic steroids a previous white count has been normal or low. Trend CBC. Urinalysis on presentation reviewed; unremarkable. Patient agreeable to escalated dose of steroids. P.o. steroids escalated. Rapid COVID-negative. Comprehensive respiratory pathogen panel ordered. Blood culture x2 ordered emergency department; follow. Tylenol for fever. Left wrist pain X-ray ordered. Home oxycodone and gabapentin continued. Tizanidine continued Prednisone as above. CKD stage IIIa Stable Trend BMP. Atrial fibrillation Heart rate 85 to 123 on presentation Metoprolol continued with blood pressure parameters placed. Eliquis continued. Chronic anemia Stable Trend CBC. DVT prophylaxis: Home Eliquis for A. fib continued. Charges/Coding Visit Charges OBSV E&M: 30902 Initial observation care L3
[2021-12-26 23:23] VITALS: BP 101/77; PULSE 85; RESP 18; TEMP 37.2; O2SAT 95
[2021-12-26 23:41] VITALS: BMI 20.2
--- NOTE | 2021-12-26 23:41 | RAD_ITS ---
EXAM: XR LEFT WRIST, 2 VIEWS CLINICAL INDICATION: pain TECHNIQUE: Frontal and lateral views of the left wrist. This report was created using [employer] report generation technology. COMPARISON: None. FINDINGS: BONES/JOINTS: Degenerative changes of the radiocarpal joint. No acute fracture. No subluxation. Normal alignment. SOFT TISSUES: Unremarkable. No soft tissue swelling or gas. No radiopaque foreign body. RAD/Wrist 2 Views IMPRESSION: Degenerative changes of the radiocarpal joint. No acute abnormalities identified. Electronically Signed: George Macedo MD at 4:31 EDT ,
[2021-12-27] VITALS (7 sets, daily range): BP systolic 97–144; BP diastolic 58–72; PULSE 80–90; RESP 16–20; TEMP 36.1–37.2; O2SAT 95–100
[2021-12-27] MEDS: Senna/Docusate Sodium 1 Tablet 2 TABLET PO (00:31)
[2021-12-27] MEDS: oxyCODONE 5 MG Tablet PO ×2 (00:31→09:18)
[2021-12-27] MEDS: Gabapentin 100 MG Capsule PO ×2 (00:31→09:15)
[2021-12-27] MEDS: tiZANidine HCl 2 MG Tablet 4 MG PO (00:31)
[2021-12-27] MEDS: traZODone 50 MG Tablet PO (00:32)
[2021-12-27] MEDS: predniSONE 5 MG Tablet 15 MG PO (00:36)
[2021-12-27 04:55] LABS: Absolute Neutrophil Count 8.8 X10^3/uL (2.0-7.7); Basophil# 0.02 X10^3/uL; Basophil% 0.2 % (0-1); Hematocrit 28.2 % (37-47); Hemoglobin 8.9 g/dL (12.0-15.0); Lymphocyte % 5.9 % (19-41); Mean Corp Hgb Conc 31.6 g/dL (32-36); Mean Corpuscular Hgb 28.8 pg (27.0-32.0); Mean Corpuscular Volume 91.3 fL (81-99); Mean Platelet Vol. 9.2 fl (6.2-12.0); Monocyte# 0.68 X10^3/uL; Monocyte% 6.7 % (0-10); NRBC Flagged by Analyzer 0 % (0-5); Neutrophil # 8.79 X10^3/uL (2.7-7.7); Neutrophil % 86.8 % (47-70); POSITIVE DIFFERENTIAL YES; Platelet Count 238 K/mm3 (150-450); RBC Distribution Width CV 16.6 % (11.6-14.6); RBC Distribution Width SD 54.5 fl (35.1-43.9); Red Blood Count 3.09 M/mm3 (4.2-5.4); White Blood Count 10.1 K/mm3 (4.4-11.0)
[2021-12-27 05:15] LABS: Differential Indicated SCAN CRITERIA MET
[2021-12-27 05:33] LABS: Anion Gap 6 (5-15); BUN 20 mg/dL (7-18); BUN/Creat Ratio 23.3 RATIO (10-20); Calcium,Total 8.1 mg/dL (8.5-10.1); Chloride 105 mmol/L (98-107); Creatinine, Serum 0.86 mg/dL (0.55-1.02); EST Glomerular Filtration Rate 67 mL/min (>60); Est Glom Filt Rate - Afr Amer 81 mL/min (>60); Estimated Creatinine Clearance 43.05 ml/min; Glucose 156 mg/dL (74-106); Sodium Level 135 mmol/L (136-145)
[2021-12-27 06:17] LABS: Differential Comment SCANNED
[2021-12-27] MEDS: Metoprolol(XL)Succ 25 MG Tablet PO ×2 (09:08→22:08)
[2021-12-27] MEDS: Aspirin E.C. 81 MG Tablet PO (09:08)
[2021-12-27] MEDS: predniSONE 20 MG Tablet PO (09:08)
[2021-12-27] MEDS: Furosemide 20 MG Tablet PO (09:08)
[2021-12-27] MEDS: APIXABAN 2.5 MG TABLET PO (09:08)
[2021-12-27] MEDS: Montelukast 10 MG Tablet PO (09:08)
[2021-12-27] MEDS: Calcium Carbonate 500 MG Tablet PO (09:09)
--- NOTE | 2021-12-27 11:30 | CASEMGMT ---
KAUSHIK DEL TORO Assessment: Face to Face with pt for initial transition planning/care coordination assessment. KAUSHIK DEL TORO introduced self and role at [facility], pt voices understanding and consents to assessment. Pt is A/O x4 and answers all questions appropriately at this time. Pt sitting up in bed in no distress. Care providers, pharmacy, and demographics verified/updated. Admitting Dx: fever, malaise PCP:Gema Specialists:zuleyma Rao; kevin Moreno Preferred Pharmacy: [facility] Insurance: [facility] Prescription Benefit: yes LW/HPOA: Pt has a LW on file at [facility]. She does not have a DPOA. She states she does have a DPOA and she is aware she can bring in to be scanned into the chart. She believes her DPOA to be her son, Say Lopez. LNOK: Say Lopez, son; Gelacio Lopez, son Living Arrangements: Pt lives alone in a single story house with one small step to enter. Pt reports she is I in ADL's and denies concerns at home. Transportation: Pt drives self and denies concerns with transportation. DME/HHC/SNF: Pt has canes but does not use. She has had HHC in the past but is unsure of the name of the agency. Pt denies SNF stays. Pt states no concerns with going home at time of dc. Pt declined to designate a bus person for dc planning. She states she will notify her family. Pt is up SBA in room. Pt states no further concerns/needs. CM to follow. Advised pt to ask CM if any further question/concerns/needs arise, voices understanding. Pt Goal: Home Plan: Home
[2021-12-27 11:36] LABS: Absolute Lymphocyte Count 0.46 X10^3/uL (0.83-4.51); Absolute Neutrophil Count 8.2 X10^3/uL (2.0-7.7); Basophil# 0.01 X10^3/uL; Basophil% 0.1 % (0-1); Hematocrit 30.1 % (37-47); Hemoglobin 9.6 g/dL (12.0-15.0); Lymphocyte # 0.46 X10^3/ul (0.83-4.51); Lymphocyte % 4.9 % (19-41); Mean Corp Hgb Conc 31.9 g/dL (32-36); Mean Corpuscular Volume 90.9 fL (81-99); Mean Platelet Vol. 9.5 fl (6.2-12.0); Monocyte# 0.61 X10^3/uL; Monocyte% 6.5 % (0-10); NRBC Flagged by Analyzer 0 % (0-5); Neutrophil # 8.17 X10^3/uL (2.7-7.7); Neutrophil % 87.7 % (47-70); POSITIVE DIFFERENTIAL YES; Platelet Count 249 K/mm3 (150-450); RBC Distribution Width CV 16.3 % (11.6-14.6); RBC Distribution Width SD 54.6 fl (35.1-43.9); Red Blood Count 3.31 M/mm3 (4.2-5.4); White Blood Count 9.3 K/mm3 (4.4-11.0)
--- NOTE | 2021-12-27 11:39 | CASEMGMT ---
KAUSHIK CM in to discuss LANE form with patient. RN CM explained LANE form, patient voiced understanding. Pt signed form and filed in chart. Pt provided with a copy of signed LANE form. Patient had no further questions or concerns at this time.
[2021-12-27 11:48] LABS: Differential Indicated SCAN CRITERIA MET
[2021-12-27 11:54] LABS: Erythrocyte Sedimentation Rate 47 mm/hr (0-30)
[2021-12-27 12:33] LABS: Platelet Estimate ADEQUATE (ADEQ); Red Cell Morphology NORM C+C NORMAL (NORM C&C)
[2021-12-27 12:56] LABS: Ferritin 238 ng/mL (8-252); Iron 14 ug/dL (50-170); Iron Binding Capacity,Total 175 ug/dL (250-450)
[2021-12-27 13:58] LABS: Pathologist Review Reviewed
--- NOTE | 2021-12-27 17:37 | PCM.PN.HOSP ---
Subjective Subjective Patient was seen and examined today, her CBC this morning showed a low hemoglobin at 8.9, this was repeated later in the morning and was 9.6. I obtained a serum iron level on the patient-it was low at 14. Patient's ferritin was normal at 238. I had a long discussion with her concerning her anemia, patient is currently taking Eliquis chronically as an outpatient, I told her I would advise her to get endoscopy performed before resuming her Eliquis, she is agreed to have the testing done while she is in the hospital. Also talked to the patient's son about her lab results and medical care. Objective Data Objective Data Vital Signs: Vital Signs Temp Pulse Resp BP Pulse Ox 98.3 F 90 20 H 119/66 98 12/27/21 14:00 12/27/21 14:00 12/27/21 14:00 12/27/21 14:00 12/27/21 14:00 Oxygen Delivery Method Room Air Weight: 57.017 kg Body Mass Index (BMI) 20.2 Intake & Output: Intake and Output for Last 24 Hours 12/25/21 12/26/21 12/27/21 23:59 23:59 23:59 Intake Total 1000 / 1000 1247.5 / 1247.5 Balance 1000 / 1000 1247.5 / 1247.5 Lab / Micro Data Result Diagrams: 12/27/21 11:20 12/27/21 04:43 Labs: Laboratory Results - last 24 hr 12/26/21 20:05: WBC 13.6 H, RBC 3.93 L, Hgb 11.4 L, Hct 35.4 L, MCV 90.1, MCH 29.0, MCHC 32.2, RDW Std Deviation 53.9 H, RDW Coeff of Carey 16.4 H, Plt Count 314, MPV 9.6, Immature Gran % (Auto) 0.700, Neut % (Auto) 77.4 H, Lymph % (Auto) 5.9 L, [place] % (Auto) 11.9 H, Eos % (Auto) 3.9, Baso % (Auto) 0.2, Absolute Neuts (auto) 10.5 H, Absolute Lymphs (auto) 0.80 L, Nucleated RBC % 0, Differential Comment SCANNED, Diff Path Review Reviewed 12/26/21 20:05: Sodium 132 L, Potassium 3.7, Chloride 96 L, Carbon Dioxide 27.0, Anion Gap 9, BUN 20 H, Creatinine 1.05 H, Estim Creat Clear Calc 33.94, Est GFR (MDRD) Af Amer 64, Est GFR (MDRD) Non-Af 53 L, BUN/Creatinine Ratio 19.0, Glucose 110 H, Calcium 9.6 12/26/21 20:05: Lactic Acid 1.4 12/26/21 20:15: Urine Color Yellow, Urine Clarity Clear, Urine pH 7.0, Ur Specific [place] 1.005, Urine Protein Negative, Urine Glucose (UA) Normal, Urine Ketones Negative, Urine Occult Blood 25 H, Urine Nitrite Negative, Urine Bilirubin Negative, Urine Urobilinogen 1 H, Ur Leukocyte Esterase Negative, Urine RBC 0-5 SEEN, Urine WBC 0-5 SEEN, Ur Squamous Epith Cells 0-5 SEEN, Urine Bacteria 0 SEEN, Urine Mucus 0 SEEN 12/27/21 04:43: Sodium 135 L, Potassium 4.0, Chloride 105, Carbon Dioxide 24.0, Anion Gap 6, BUN 20 H, Creatinine 0.86, Estim Creat Clear Calc 43.05, Est GFR (MDRD) Af Amer 81, Est GFR (MDRD) Non-Af 67, BUN/Creatinine Ratio 23.3 H, Glucose 156 H, Calcium 8.1 L 12/27/21 04:43: WBC 10.1, RBC 3.09 L, Hgb 8.9 L, Hct 28.2 L, MCV 91.3, MCH 28.8, MCHC 31.6 L, RDW Std Deviation 54.5 H, RDW Coeff of Carey 16.6 H, Plt Count 238, MPV 9.2, Immature Gran % (Auto) 0.400, Neut % (Auto) 86.8 H, Lymph % (Auto) 5.9 L, [place] % (Auto) 6.7, Eos % (Auto) 0.0, Baso % (Auto) 0.2, Absolute Neuts (auto) 8.8 H, Absolute Lymphs (auto) 0.60 L, Nucleated RBC % 0, Differential Comment SCANNED 12/27/21 04:43: Iron 14 L, TIBC 175 L, Iron Saturation 8.0 L, Ferritin 238 12/27/21 11:20: WBC 9.3, RBC 3.31 L, Hgb 9.6 L, Hct 30.1 L, MCV 90.9, MCH 29.0, MCHC 31.9 L, RDW Std Deviation 54.6 H, RDW Coeff of [place] 16.3 H, Plt Count 249, MPV 9.5, Immature Gran % (Auto) 0.800, Neut % (Auto) 87.7 H, Lymph % (Auto) 4.9 L, [place] % (Auto) 6.5, Eos % (Auto) 0.0, Baso % (Auto) 0.1, Absolute Neuts (auto) 8.2 H, Absolute Lymphs (auto) 0.46 L, Nucleated RBC % 0, Differential Comment , Platelet Estimate ADEQUATE, RBC Morphology NORM C+C, ESR 47 H Micro: Microbiology 12/27/21 04:15 Mucosa - Nasopharyngeal Respiratory Panel (PCR) - Final 12/26/21 20:15 Nasal Secretion SARS-CoV-2 Antigen (Rapid) - Final Radiography Diagnostic Testing: Radiology Impression Chest X-Ray 12/26/21 19:47 IMPRESSION: Small bilateral effusions slightly larger on the right with right lower lobe infiltrate or atelectasis. Electronically Signed: Maciel Nava MD at 21:07 EDT , Wrist X-Ray 12/26/21 23:41 IMPRESSION: Degenerative changes of the radiocarpal joint. No acute abnormalities identified. Electronically Signed: George Macedo MD at 4:31 EDT , Rhythm Strip Rhythm Strip: A-fib Rate: 114 Ectopy: None Physical Exam Const alert and oriented x3 Constitutional Narrative: Patient appears nervous on examination General Appearance: cooperative, well kempt and well developed Orientation / Consciousness: awake, oriented to person, oriented to place and oriented to time HEENT normocephalic, head/scalp atraumatic and moist oral mucous membranes Head and Scalp: normocephalic Eyes PERRL, EOMs intact bilaterally and conjunctivae normal Neck nuchal rigidity, supple, no JVD, thyroid normal and no carotid bruits General: trachea midline Resp normal respiratory effort, no retractions, no use of accessory muscles and clear to auscultation bilaterally Resp Narrative: Patient has pursed lip breathing at time Auscultation: Negative for rales, rhonchi or wheezes Cardio S1 normal heart sound, S2 normal heart sound, no murmurs, no rub and no gallops Cardio Narrative: Heart rate and rhythm is irregular GI normal to inspection, nondistended, normoactive bowel sounds, soft to palpation, non-tender and non-distended Extremity no clubbing, cyanosis or edema Skin Skin Narrative: Patient has evidence of chronic ecchymosis to her lower legs, she has ecchymosis of healing shingles lesions over her left lateral and left mid abdominal area General Skin Exam: no breakdown Neuro oriented x3, CN's II-XII intact bilaterally, no focal motor deficits and no sensory deficits noted Sensorium / Orientation: awake and alert Speech: speech normal Psych Mood & Affect: anxious Assessment & Plan Assessment/Plan (1) Hx of polymyalgia rheumatica: PLAN: 1. Febrile illness-resolved at this time, exact etiology unclear, patient's white blood cell count is normal this morning #2 acute anemia-etiology unclear, patient's last hemoglobin today at 1120 was 9.6-patient will undergo an upper and a lower endoscopy tomorrow to rule out GI blood loss, patient's Eliquis will be held, she will be seen by gastroenterology. #3 chronic atrial fibrillation-again patient is on Eliquis as an outpatient, this will be held for now #4 iron deficiency anemia-etiology unclear, patient will receive IV Venofer, CBC will be rechecked tomorrow #5 polymyalgia rheumatica-patient's sed rate was 47 today, patient is on prednisone 20 mg daily at this time Charges/Coding Visit Charges OBSV E&M: 23890 Subsequent observation care L3
--- NOTE | 2021-12-27 17:53 | PCM.CONS.GEN ---
Assessment & Plan Assessment/Plan (1) Anemia: PLAN: She seems to have anemia chronic disease in the setting of possible acute blood loss anemia. Her ferritin is normal at 238. However it is of acute phase reactant and can be falsely elevated secondary to a chronic condition such as polymyalgia rheumatica. Also she has had recent influenza infection which can also elevate her ferritin level. Her risk factors for GI bleed are Eliquis in the setting of prednisone therapy. This can result in gastritis, duodenitis and peptic ulcer disease. Also she is at risk for AVMs and neoplasia of the GI tract. She should undergo an upper lower endoscopy evaluate upper lower GI tract due to the fact that she needs to be on Eliquis therapy. She was explained alternatives, risk, benefits include not withstanding bleeding, infection, sepsis, perforation, need for urgent . I will also talk with her son Gary on the phone and explained to him her plan while in the hospital. HPI Consult Data Date of Consult: 12/27/21 HPI Narrative HPI Narrative: KAMLESH COLE, is a 86 F who presents with worsening lethargy and generally does not feel well. She has a history of A. fib, CHF recent shingles and a history of polymyalgia rheumatica. She had influenza in November really has not been feeling well. Had to be hospitalized in the last several weeks. States that she was diagnosed with shingles in the last several weeks. She is already on chronic prednisone for polymyalgia rheumatica. She is also been placed on gabapentin for pain and oxycodone. States she has diffuse body aches. I was called for consultation because the patient was noted to be anemic at a hemoglobin of 8.9. It was rechecked and it was discovered to be 9.6. Her Eliquis was given this morning. She did admit to some darker colored stools. [facility] Medical History (Updated 12/27/21 @ 17:[address] Marley Friend, DO) Arthritis Ascending aorta dilatation Asthma Asthma Chronic pain Fibromyalgia First degree AV block Nonrheumatic mitral valve regurgitation Nonrheumatic tricuspid valve regurgitation Osteoporosis Paroxysmal atrial fibrillation PVCs (premature ventricular contractions) Secondary pulmonary arterial hypertension Home Medications albuterol sulfate 2 puff IH 4X/DAY PRN PRN 05/14/13 [History Last Taken 05/27/13 05:55] montelukast 10 mg PO DAILY 05/14/13 [History Last Taken Unknown] aspirin 81 mg tablet,delayed release 81 mg PO QDAY tab 09/21/17 [History Last Taken Unknown] apixaban 2.5 mg PO BID 08/29/20 [History Last Taken Unknown] beclomethasone dipropionate 2 puff INHALATION BID 08/29/20 [History Last Taken Unknown] biotin 5,000 mcg PO DAILY 08/29/20 [History Last Taken Unknown] furosemide 20 mg PO DAILY 08/29/20 [History Last Taken Unknown] prednisone 5 mg PO DAILY 08/29/20 [History Last Taken Unknown] metoprolol succinate 25 mg PO BID #0 tab 11/25/21 [Rx Last Taken Unknown] calcium 600 mg PO DAILY 12/09/21 [History Last Taken Unknown] tizanidine 4 mg PO PRN PRN 12/09/21 [History Last Taken Unknown] trazodone 50 mg PO QHS 12/09/21 [History Last Taken Unknown] vitamin A 2,400 mcg PO DAILY 12/09/21 [History Last Taken Unknown] gabapentin 100 mg PO BID 12/26/21 [History Last Taken Unknown] oxycodone 5 mg PO BID 12/26/21 [History Last Taken Unknown] Allergy/AdvReac Type Severity Reaction Status Date / Time No Known Allergies Allergy Verified 12/26/21 19:13 Family History Unknown No problems noted. Mother , at age 102 No cardiac disease Father Dementia Surgical History (Updated 12/27/21 @ 00:19 by Alicia Tomas) H/O mitral valve repair History of bilateral hip replacements History of cholecystectomy History of hysterectomy History of tonsillectomy Hx of cholecystectomy Social History household members: none Smoking Status: Never smoker substance use type: does not use ROS Review of Systems ROS Unobtainable: other Constitutional Constitutional: Denies fatigue, fever(s), poor appetite, weight gain or weight loss ENT HEENT: Denies mouth lesions Cardiovascular Cardiovascular: Denies abdominal bloating, abdominal edema or abdominal pain Respiratory/Chest Respiratory/Chest: Denies change in mental status, change in phlegm color, chest congestion or chest tightness Gastrointestinal Gastrointestinal: Denies belching, bloating, change in bowel habits, change in stool character, chewing difficulty, coffee ground emesis, constipation, cramping, diarrhea, dyspepsia, dysphagia, early satiety, excessive flatus, fecal incontinence, heartburn, hematemesis, hematochezia, hemorrhoids, loose stools, melena, nausea, odynophagia, rectal bleeding, tenesmus, vomiting or weight changes Genitourinary Genitourinary: Denies abdominal discomfort, burning urination or itching Musculoskeletal Musculoskeletal: Reports as per HPI; Denies muscle weakness or myalgias Integumentary Integumentary: Denies jaundice Neurologic Neurologic: Denies lack of coordination or weakness Psychiatric Psychiatric: Denies confusion, depression, memory loss, mood swings, paranoia or suicidal ideation Endocrine Endocrinology: Denies systems reviewed and no addt'l complaints, except as documented Hematologic/Lymphatic Hematologic/Lymphatic: Denies anemia, easy bleeding, easy bruising or lymphadenopathy Allergic/Immunologic Allergic/Immunologic: Denies systems reviewed and no addt'l complaints, except as documented Physical Exam Const alert General Appearance: cooperative Orientation / Consciousness: oriented to person HEENT hearing grossly normal bilaterally Head and Scalp: normal to inspection Face and Sinus: face symmetric Nose: external nose normal Mouth: oral and palatal mucosa normal Eyes conjunctivae normal General Eye: normal appearance of both eyes Neck full ROM General: normal visual inspection Lymph Lymphatic: no lymphadenopathy noted Chest inspection of chest normal and palpation of chest normal Chest: symmetrical chest wall rise Resp normal respiratory effort Effort and Inspection: able to speak in complete sentences Cardio regular rate GI non-distended Percussion: normal to percussion Rectal Exam: deferred Neuro Speech: speech normal Gait (Neuro): normal gait Lab / Micro Data Result Diagrams: 12/27/21 11:20 12/27/21 04:43 Labs: Laboratory Results - last 24 hr 12/26/21 20:05: WBC 13.6 H, RBC 3.93 L, Hgb 11.4 L, Hct 35.4 L, MCV 90.1, MCH 29.0, MCHC 32.2, RDW Std Deviation 53.9 H, RDW Coeff of Carey 16.4 H, Plt Count 314, MPV 9.6, Immature Gran % (Auto) 0.700, Neut % (Auto) 77.4 H, Lymph % (Auto) 5.9 L, Jefferson % (Auto) 11.9 H, Eos % (Auto) 3.9, Baso % (Auto) 0.2, Absolute Neuts (auto) 10.5 H, Absolute Lymphs (auto) 0.80 L, Nucleated RBC % 0, Differential Comment SCANNED, Diff Path Review Reviewed 12/26/21 20:05: Sodium 132 L, Potassium 3.7, Chloride 96 L, Carbon Dioxide 27.0, Anion Gap 9, BUN 20 H, Creatinine 1.05 H, Estim Creat Clear Calc 33.94, Est GFR (MDRD) Af Amer 64, Est GFR (MDRD) Non-Af 53 L, BUN/Creatinine Ratio 19.0, Glucose 110 H, Calcium 9.6 12/26/21 20:05: Lactic Acid 1.4 12/26/21 20:15: Urine Color Yellow, Urine Clarity Clear, Urine pH 7.0, Ur Specific [place] 1.005, Urine Protein Negative, Urine Glucose (UA) Normal, Urine Ketones Negative, Urine Occult Blood 25 H, Urine Nitrite Negative, Urine Bilirubin Negative, Urine Urobilinogen 1 H, Ur Leukocyte Esterase Negative, Urine RBC 0-5 SEEN, Urine WBC 0-5 SEEN, Ur Squamous Epith Cells 0-5 SEEN, Urine Bacteria 0 SEEN, Urine Mucus 0 SEEN 12/27/21 04:43: Sodium 135 L, Potassium 4.0, Chloride 105, Carbon Dioxide 24.0, Anion Gap 6, BUN 20 H, Creatinine 0.86, Estim Creat Clear Calc 43.05, Est GFR (MDRD) Af Amer 81, Est GFR (MDRD) Non-Af 67, BUN/Creatinine Ratio 23.3 H, Glucose 156 H, Calcium 8.1 L 12/27/21 04:43: WBC 10.1, RBC 3.09 L, Hgb 8.9 L, Hct 28.2 L, MCV 91.3, MCH 28.8, MCHC 31.6 L, RDW Std Deviation 54.5 H, RDW Coeff of Carey 16.6 H, Plt Count 238, MPV 9.2, Immature Gran % (Auto) 0.400, Neut % (Auto) 86.8 H, Lymph % (Auto) 5.9 L, Jefferson % (Auto) 6.7, Eos % (Auto) 0.0, Baso % (Auto) 0.2, Absolute Neuts (auto) 8.8 H, Absolute Lymphs (auto) 0.60 L, Nucleated RBC % 0, Differential Comment SCANNED 12/27/21 04:43: Iron 14 L, TIBC 175 L, Iron Saturation 8.0 L, Ferritin 238 12/27/21 11:20: WBC 9.3, RBC 3.31 L, Hgb 9.6 L, Hct 30.1 L, MCV 90.9, MCH 29.0, MCHC 31.9 L, RDW Std Deviation 54.6 H, RDW Coeff of Carey 16.3 H, Plt Count 249, MPV 9.5, Immature Gran % (Auto) 0.800, Neut % (Auto) 87.7 H, Lymph % (Auto) 4.9 L, Jefferson % (Auto) 6.5, Eos % (Auto) 0.0, Baso % (Auto) 0.1, Absolute Neuts (auto) 8.2 H, Absolute Lymphs (auto) 0.46 L, Nucleated RBC % 0, Differential Comment , Platelet Estimate ADEQUATE, RBC Morphology NORM C+C, ESR 47 H Micro: Microbiology 12/27/21 04:15 Mucosa - Nasopharyngeal Respiratory Panel (PCR) - Final 12/26/21 20:15 Nasal Secretion SARS-CoV-2 Antigen (Rapid) - Final Rhythm Strip Rhythm Strip: A-fib Rate: 114 Ectopy: None Radiology Impression Chest X-Ray 12/26/21 19:47 IMPRESSION: Small bilateral effusions slightly larger on the right with right lower lobe infiltrate or atelectasis. Electronically Signed: Maciel Nava MD at 21:07 EDT , Wrist X-Ray 12/26/21 23:41 IMPRESSION: Degenerative changes of the radiocarpal joint. No acute abnormalities identified. Electronically Signed: George Macedo MD at 4:31 EDT , Charges/Coding Visit Charges Inpatient E&M: 68401 Init Hosp L2
[2021-12-27] MEDS: Bisacodyl 5 MG Tablet 10 MG PO (19:39)
[2021-12-27] MEDS: Electrolyte Solution/Peg's 4000 ML 2000 ML PO (19:40)
[2021-12-27] MEDS: 0.9% Saline Lock 10 ML Syringe IV ×2 (19:40→22:07)
[2021-12-27] MEDS: Ondansetron 4 MG/2 ML Vial IV (22:07)
[2021-12-28] VITALS (12 sets, daily range): BP systolic 89–148; BP diastolic 53–80; PULSE 62–97; RESP 16–18; TEMP 36.6–37.2; O2SAT 91–100; BMI 20.2
[2021-12-28] MEDS: oxyCODONE 5 MG Tablet PO (00:01)
[2021-12-28] MEDS: Gabapentin 100 MG Capsule PO (00:01)
[2021-12-28] MEDS: traZODone 50 MG Tablet PO (00:02)
[2021-12-28 05:55] LABS: Absolute Lymphocyte Count 1.22 X10^3/uL (0.83-4.51); Absolute Neutrophil Count 9.4 X10^3/uL (2.0-7.7); Basophil# 0.02 X10^3/uL; Basophil% 0.2 % (0-1); Hemoglobin 9.2 g/dL (12.0-15.0); Lymphocyte # 1.22 X10^3/ul (0.83-4.51); Lymphocyte % 10.5 % (19-41); Mean Corp Hgb Conc 31.7 g/dL (32-36); Mean Corpuscular Hgb 28.8 pg (27.0-32.0); Mean Corpuscular Volume 90.6 fL (81-99); Mean Platelet Vol. 9.9 fl (6.2-12.0); Monocyte# 0.94 X10^3/uL; Monocyte% 8.1 % (0-10); NRBC Flagged by Analyzer 0 % (0-5); Neutrophil # 9.37 X10^3/uL (2.7-7.7); Neutrophil % 80.8 % (47-70); Platelet Count 293 K/mm3 (150-450); RBC Distribution Width CV 16.5 % (11.6-14.6); RBC Distribution Width SD 54.2 fl (35.1-43.9); White Blood Count 11.6 K/mm3 (4.4-11.0)
[2021-12-28 06:03] LABS: International Normalized Ratio 1.4; Prothrombin Time (Protime)PT. 16.9 SECONDS (11.7-14.9)
[2021-12-28 06:04] LABS: Partial Thromboplast Time 40.1 Seconds (24.1-36.2)
[2021-12-28] MEDS: Metoprolol(XL)Succ 25 MG Tablet PO (10:39)
--- NOTE | 2021-12-28 11:45 | NURSING ---
Pt visitor was updated on the time of procedure. Per Endo pt is schedule for 3 pm but can be picked up as early as 12 noon. Visitor is given instructions as to where to come when she comes to the hospital. Pt later iron cutter light and she is upset stating my visitor just called me and said they told her I am not schedule until 4 pm, I cannot wait that long. My lips are dry and I am so worried about this. Nurse redirect pt to the prep she did in her previous scope the necessity of NPO. Pt refuse to acknowledge this information and continue to obsess. She is further encourage to verbalize what is it what is making her worried. She is unable to specify problem. Visitor at bedside with pt.
[2021-12-28] MEDS: Ondansetron 4 MG/2 ML Vial IV (14:59)
[2021-12-28] MEDS: Lactated Ringers 1,000 ML 15 ML IV ×2 (15:30→17:04)
--- NOTE | 2021-12-28 16:55 | OP.EGD_ITS ---
Patient Name: Estela Lopez Procedure Date: 12/28/2021 4:14 PM Date of : 1935 Age: 86 Procedure: Upper GI endoscopy Indications: Acute post hemorrhagic anemia, Iron deficiency anemia Providers: Donell Onofre DO Medicines: Monitored Anesthesia Care Patient Profile: This is an 86 year old female. Refer to note in patient chart for documentation of history and physical. Patient has symptoms. Complications: No immediate complications. Procedure: Pre-Anesthesia Assessment: - Prior to the procedure, a History and Physical was performed, and patient medications and allergies were reviewed. The patient is competent. The risks and benefits of the procedure and the sedation options and risks were discussed with the patient. All questions were answered and informed consent was obtained. Patient identification and proposed procedure were verified by the physician in the pre-procedure area. Mental Status Examination: alert and oriented. Airway Examination: normal oropharyngeal airway and neck mobility. Respiratory Examination: clear to auscultation. CV Examination: normal. Prophylactic Antibiotics: The patient does not require prophylactic antibiotics. Prior Anticoagulants: The patient has taken no previous anticoagulant or antiplatelet agents. After reviewing the risks and benefits, the patient was deemed in satisfactory condition to undergo the procedure. The anesthesia plan was to use moderate sedation / analgesia (conscious sedation). Immediately prior to administration of medications, the patient was re-assessed for adequacy to receive sedatives. The heart rate, respiratory rate, oxygen saturations, blood pressure, adequacy of pulmonary ventilation, and response to care were monitored throughout the procedure. The physical status of the patient was re-assessed after the procedure. After obtaining informed consent, the endoscope was passed under direct vision. Throughout the procedure, the patient's blood pressure, pulse, and oxygen saturations were monitored continuously. The Colonoscope was introduced through the mouth, and advanced to the second part of duodenum. The gastroscope was introduced through the mouth, and advanced to the second part of duodenum. The upper GI endoscopy was accomplished without difficulty. The patient tolerated the procedure well. Scope In: 4:18:23 PM Scope Out: 4:26:11 PM Total Procedure Duration Time 0 hours 7 minutes 48 seconds Findings: The upper third of the esophagus and middle third of the esophagus were normal. A non-obstructing Schatzki ring was found in the lower third of the esophagus. A small hiatal hernia was present. Multiple 5 mm bleeding angioectasias were found in the cardia, in the gastric fundus and in the gastric body. Coagulation for hemostasis using heater probe was successful. Estimated blood loss was minimal. The second portion of the duodenum was normal. Impression: - Normal upper third of esophagus and middle third of esophagus. - Non-obstructing Schatzki ring. - Small hiatal hernia. - Multiple bleeding angioectasias in the stomach. Treated with a heater probe. - Normal second portion of the duodenum. - No specimens collected. Recommendation: - [facility]. - Resume previous diet today. - Use a proton pump inhibitor PO BID for 4 weeks. - Use sucralfate tablets 1 gram PO QID for 7 days. - Continue present medications. Procedure Code(s): --- Professional --- 12193, Esophagogastroduodenoscopy, flexible, transoral; with control of bleeding, any method CPT copyright 2017 [employer]. All rights reserved. The codes documented in this report are preliminary and upon spray cementer review may be revised to meet current compliance requirements. Donell Onofre DO 12/28/2021 4:55:24 PM This report has been signed electronically. Number of Addenda: 1 Note Initiated On: 12/28/2021 4:14 PM Addendum Number: 1 Addendum Date: 04/19/2022 6:21:38 AM MAC was used as sedation for this procedure. Donell Onofre DO 04/19/2022 6:21:43 AM This report has been signed electronically.
--- NOTE | 2021-12-28 16:57 | OP.CCLET_ITS ---
04/19/2022 Cielo Ribeiro [address] [place] [address] Re : Upper GI endoscopy procedure for Estela Lopez Dear Dr. Ribeiro This procedure was performed on Tuesday, December 28, 2021. My impressions and recommendations are as follows: Impressions : - Normal upper third of esophagus and middle third of esophagus. - Non-obstructing Schatzki ring. - Small hiatal hernia. - Multiple bleeding angioectasias in the stomach. Treated with a heater probe. - Normal second portion of the duodenum. - No specimens collected. Recommendations : - [facility]. - Resume previous diet today. - Use a proton pump inhibitor PO BID for 4 weeks. - Use sucralfate tablets 1 gram PO QID for 7 days. - Continue present medications. My findings are described in the full procedure note, which is enclosed. If I can be of further assistance, please feel free to contact me at . Sincerely, Donell Onofre, 12/28/2021 4:55:24 PM This report has been signed electronically.
--- NOTE | 2021-12-28 17:06 | OP.COLON_ITS ---
Patient Name: Estela Lopez Procedure Date: 12/28/2021 4:26 PM Date of : 1935 Age: 86 Procedure: Colonoscopy Indications: Iron deficiency anemia Providers: Donell Onofre DO Medicines: Monitored Anesthesia Care Patient Profile: This is an 86 year old female. Refer to note in patient chart for documentation of history and physical. Patient has symptoms. Last Colonoscopy: 5 years ago. Complications: No immediate complications. Procedure: Pre-Anesthesia Assessment: - Prior to the procedure, a History and Physical was performed, and patient medications and allergies were reviewed. The patient is competent. The risks and benefits of the procedure and the sedation options and risks were discussed with the patient. All questions were answered and informed consent was obtained. Patient identification and proposed procedure were verified by the physician in the pre-procedure area. Mental Status Examination: alert and oriented. Airway Examination: normal oropharyngeal airway and neck mobility. Respiratory Examination: clear to auscultation. CV Examination: normal. Prophylactic Antibiotics: The patient does not require prophylactic antibiotics. Prior Anticoagulants: The patient has taken no previous anticoagulant or antiplatelet agents. After reviewing the risks and benefits, the patient was deemed in satisfactory condition to undergo the procedure. The anesthesia plan was to use moderate sedation / analgesia (conscious sedation). Immediately prior to administration of medications, the patient was re-assessed for adequacy to receive sedatives. The heart rate, respiratory rate, oxygen saturations, blood pressure, adequacy of pulmonary ventilation, and response to care were monitored throughout the procedure. The physical status of the patient was re-assessed after the procedure. After I obtained informed consent, the scope was passed under direct vision. Throughout the procedure, the patient's blood pressure, pulse, and oxygen saturations were monitored continuously. The Colonoscope was introduced through the anus and advanced to the cecum, identified by the appendiceal orifice, IC valve and transillumination. The Colonoscope was introduced through the anus and advanced to the cecum, identified by appendiceal orifice and ileocecal valve. The colonoscopy was performed with ease. The patient tolerated the procedure well. The quality of the bowel preparation was good. Moderate Sedation: Moderate (conscious) sedation was personally administered by an anesthesia professional. The following parameters were monitored: oxygen saturation, heart rate, blood pressure, and response to care. Total physician intraservice time was 15 minutes. Scope In: 4:30:50 PM Scope Withdrawal Time 0 hours 6 minutes 32 seconds Scope Out: 4:48:52 PM Total Procedure Duration Time 0 hours 18 minutes 2 seconds Findings: The perianal and digital rectal examinations were normal. A few small-mouthed diverticula were found in the sigmoid colon. The entire examined colon appeared normal on direct and retroflexion views. Non-bleeding internal hemorrhoids were found during retroflexion. The hemorrhoids were Grade I (internal hemorrhoids that do not prolapse). Impression: - Diverticulosis in the sigmoid colon. - The entire examined colon is normal on direct and retroflexion views. - No specimens collected. Recommendation: - Discharge patient to home. - Resume previous diet. - Continue present medications. - No recommendation at this time regarding repeat colonoscopy due to age. Procedure Code(s): --- Professional --- 71026, Colonoscopy, flexible; diagnostic, including collection of specimen(s) by brushing or washing, when performed (separate procedure) CPT copyright 2017 [employer]. All rights reserved. The codes documented in this report are preliminary and upon remote inpatient coder review may be revised to meet current compliance requirements. Donell Onofre DO 12/28/2021 5:06:04 PM This report has been signed electronically. Number of Addenda: 1 Note Initiated On: 12/28/2021 4:26 PM Addendum Number: 1 Addendum Date: 04/19/2022 6:21:50 AM MAC was used as sedation for this procedure. Donell Onofre DO 04/19/2022 6:21:56 AM This report has been signed electronically.
--- NOTE | 2021-12-28 17:07 | OP.CCLET_ITS ---
04/19/2022 Cielo Ribeiro [address] [place] [address] Re : Colonoscopy procedure for Estela Lopez Dear Dr. Ribeiro This procedure was performed on Tuesday, December 28, 2021. My impressions and recommendations are as follows: Impressions : - Diverticulosis in the sigmoid colon. - The entire examined colon is normal on direct and retroflexion views. - No specimens collected. Recommendations : - Discharge patient to home. - Resume previous diet. - Continue present medications. - No recommendation at this time regarding repeat colonoscopy due to age. My findings are described in the full procedure note, which is enclosed. If I can be of further assistance, please feel free to contact me at . Sincerely, Donell Friend, 12/28/2021 5:06:04 PM This report has been signed electronically.
--- NOTE | 2021-12-28 18:04 | PCM.DC ---
Discharge Instructions Diet Discharge Diet: No restrictions Activity Discharge Activity: Return to Normal Activity Weight Bearing Status: Full weight bearing Follow Up Care Test Results: Test results from this visit will be discussed in further detail at your follow-up appointment, if applicable. Discharge Plan Admission Admit Date/Time: 12/26/21 22:44 Primary Reason for Your Visit: acute blood loss anemia, iron deficiency anemia Attending Provider: Ketan Teran Primary Care Provider: Cielo Ribeiro Consulting Providers: Ge Acosta Discharge Orders/Prescriptions Prescriptions: New sucralfate [Carafate] 1 gram tablet 1 g PO .QID Qty: 28 RF: 0 pantoprazole [Protonix] 40 mg tablet,delayed release (DR/EC) 40 mg PO BID Qty: 60 RF: 0 ferrous sulfate 325 mg (65 mg iron) tablet 325 mg PO BID Qty: 60 RF: 0 Continued montelukast 10 MG tablet 10 mg PO DAILY RF: 0 albuterol sulfate 6.7 GM HFA aerosol inhaler 2 puff IH 4X/DAY PRN PRN (Reason: Sob &/Or Wheezing) RF: 0 prednisone 1 MG tablet 5 mg PO DAILY RF: 0 Hold Instructions: Hold while taking 40mg Prednisone, resume thereafter. biotin 10,000 MCG capsule 5,000 mcg PO DAILY RF: 0 furosemide 20 MG tablet 20 mg PO DAILY RF: 0 beclomethasone dipropionate 1 PUFF inhaler 2 puff INHALATION BID RF: 0 metoprolol succinate 25 MG tablet extended release 24 hr 25 mg PO BID Qty: 0 RF: 0 calcium 600 mg Capsule 600 mg PO DAILY RF: 0 vitamin A 2,400 mcg Capsule 2,400 mcg PO DAILY RF: 0 trazodone 50 mg Tablet 50 mg PO QHS RF: 0 tizanidine 4 mg tablet 4 mg PO PRN PRN (Reason: Anxiety) RF: 0 gabapentin 100 mg capsule 100 mg PO BID RF: 0 oxycodone 5 mg tablet 5 mg PO BID RF: 0 Held apixaban 2.5 MG tablet 2.5 mg PO BID RF: 0 Hold Instructions: Resume on 12/29/21. Resume on 12/29/2021 at your evening dose Discontinued aspirin [Adult Low Dose Aspirin] 81 mg tablet,delayed release (DR/EC) 81 mg PO QDAY RF: 0 Referrals / Follow Up: Cielo Ribeiro MD [Primary Care Provider] - Within 2 Weeks FriendDonell DO [STAFF PHYSICIAN] - See Referral Note (in three weeks-call for an appointment) Disposition Disposition (needs filled in before D/C Order can be placed): Home, Self Care
--- NOTE | 2021-12-28 18:42 | DS.PCM_ITS ---
Providers Date of Admission: 12/26/21 Date of Discharge: 12/28/21 Primary Care Physician: Dr. Cielo Ribeiro MD Consultations 12/27/21 17:19 Consult: Gastroenterology Routine Consulting Provider: Shruthi G[facility] Reason for Consult: iron def anemia, on Eliquis EMERGENT Consult: No MD Notified: Yes Date Notified: 12/27/21 Time Notified: 17:20 Method of Notification: Verbal Reason For Visit: FEVER,MALISE Diagnosis Discharge Diagnosis (1) Anemia: Status: Acute Code(s): D64.9 - Anemia, unspecified Plan: ?1.? Febrile illness-etiology unknown #2 acute anemia-secondary to acute hemorrhage from gastric bleeding angioectasi as #3 chronic atrial fibrillation #4 iron deficiency anemia-etiology unclear #5 polymyalgia rheumatica-patient's sed rate was 47 today, patient is on prednisone 20 mg daily at this time #6 gastric angiectasia Medications at Discharge Home Medications albuterol sulfate 90 mcg/actuation aerosol inhaler 2 puff IH 4X/DAY PRN PRN Sob &/Or Wheezing 05/14/13 montelukast 10 mg tablet 10 mg PO DAILY allergies 05/14/13 apixaban 2.5 mg tablet 2.5 mg PO BID blood thinner 08/29/20 beclomethasone dipropionate 80 mcg/actuation HFA breath activated aerosol 2 puff inhalation BID breathing 08/29/20 biotin 10,000 mcg capsule 5,000 mcg PO DAILY supplement 08/29/20 furosemide 20 mg tablet 20 mg PO DAILY diuretic 08/29/20 prednisone 1 mg tablet 5 mg PO DAILY inflammation 08/29/20 metoprolol succinate 25 mg tablet,extended release 24 hr 25 mg PO BID #0 tabs 11/25/21 calcium 600 mg capsule 600 mg PO DAILY 12/09/21 tizanidine 4 mg tablet 4 mg PO PRN PRN Anxiety 12/09/21 trazodone 50 mg tablet 50 mg PO QHS 12/09/21 vitamin A 2,400 mcg capsule 2,400 mcg PO DAILY 12/09/21 gabapentin 100 mg capsule 100 mg PO BID 12/26/21 oxycodone 5 mg tablet 5 mg PO BID 12/26/21 ferrous sulfate 325 mg (65 mg iron) tablet 325 mg PO BID #60 tabs 12/28/21 pantoprazole 40 mg tablet,delayed release (Protonix) 40 mg PO BID #60 tabs 12/28/21 sucralfate 1 gram tablet (Carafate) 1 g PO .QID #28 tabs 12/28/21 Hospital Course Operations None Procedures Colonoscopy and EGD Summary of Care Provided Minutes Spent on Discharge: 30 Hospital Course: This 86-year-old white female was seen in the emergency room at [facility] with complaints of feeling unwell and having a fever at home. Patient denied any shortness of breath, she denied any cough. Patient recently had shingles, she had also had influenza A a few weeks before. Work-up in the emergency room included a chest x-ray which showed small bilateral pleural effusions slightly larger on the right with right lower lobe infiltrate or atelectasis, patient had no evidence of pneumonia however on examination and it was not felt that she had pneumonia. Patient's white blood cell count was elevated at 13.6, however the patient had been taking chronic prednisone at home for polymyalgia rheumatica. Patient was placed in observation status on MedSurg 3, she was given an escalation of her home steroid dosage, she was not treated for pneumonia. I evaluated the patient and did not feel that she had a flareup of polymyalgia rheumatica, patient was found to have a drop in her hemoglobin during her hospit alization, iron studies revealed her to be iron deficient and she was seen in consultation by gastroenterology who performed an EGD and colonoscopy. EGD was remarkable for showing angioectasias in the stomach, these were cauterized. Patient did not require any blood transfusion, she was given IV iron during her hospitalization. On 12/28/2021, patient was seen and examined: On examination she appeared in good health and spirits, she does not appear to be in any distress. Vital signs as documented. Skin warm and dry and without overt rashes. Neck without JVD, thyroid appears normal, trachea is midline, neck is supple. Lungs clear, normal air movement was noted. Heart exam notable for irregular rhythm, normal sounds and absence of murmurs, rubs or gallops. Abdomen unremarkable and without e vidence of organomegaly, masses, or abdominal aortic enlargement, bowel sounds are present in all 4 quadrants, no abdominal tenderness was noted. Extremities nonedematous, no cyanosis was noted, no clubbing was noted. Neuro: Cranial nerves II through XII are grossly intact, no focal motor deficits were noted, sensation to light touch and pinprick is intact, motor exam 5/5 throughout. Psych: Patient is alert and oriented x3, she does not appear anxious or depressed, she does not appear agitated. Patient was discharged home in stable condition on 12/28/2021. Weight / BMI Weight Weight: 57.017 kg Body Mass Index (BMI) 20.2 ABG / Lab / Microbiology Data Result Diagrams: 12/28/21 05:40 12/27/21 04:43 Laboratory: Laboratory Results - last 24 hr 12/28/21 05:40: WBC 11.6 H, RBC 3.20 L, Hgb 9.2 L, Hct 29.0 L, MCV 90.6, MCH 28.8, MCHC 31.7 L, RDW Std Deviation 54.2 H, RDW Coeff of Carey 16.5 H, Plt Count 293, MPV 9.9, Immature Gran % (Auto) 0.400, Neut % (Auto) 80.8 H, Lymph % (Auto) 10.5 L, Brown % (Auto) 8.1, Eos % (Auto) 0.0, Baso % (Auto) 0.2, Absolute Neuts (auto) 9.4 H, Absolute Lymphs (auto) 1.22, Nucleated RBC % 0 12/28/21 05:40: PT 16.9 H, INR 1.4, APTT 40.1 H Microbiology: Microbiology 12/27/21 18:37 Stool Stool Occult Blood ([facility]) - Final 12/27/21 04:15 Mucosa - Nasopharyngeal Respiratory Panel (PCR) - Final 12/26/21 20:15 Nasal Secretion SARS-CoV-2 Antigen (Rapid) - Final D/C Instructions Discharge Diet: No restrictions Weight Bearing Status: Full weight bearing Meaningful Use Info Meaningful Use Diagnoses (Choose all that apply): None applicable Discharge Plan Admission Admit Date/Time: 12/26/21 22:44 Primary Reason for Your Visit: acute blood loss anemia, iron deficiency anemia Attending Provider: Ketan Teran Primary Care Provider: Cielo Ribeiro Consulting Providers: Ge Acosta Discharge Orders/Prescriptions Prescriptions: New sucralfate [Carafate] 1 gram tablet 1 g PO .QID Qty: 28 0RF Rx Instructions: If you are unable to swallow this medication, stop it-make sure you take your pantoprazole pantoprazole [Protonix] 40 mg tablet,delayed release (DR/EC) 40 mg PO BID Qty: 60 0RF ferrous sulfate 325 mg (65 mg iron) tablet 325 mg PO BID Qty: 60 0RF Continued montelukast 10 MG tablet 10 mg PO DAILY Label Comments: [employer] albuterol sulfate 6.7 GM HFA aerosol inhaler 2 puff IH 4X/DAY PRN PRN (Reason: Sob &/Or Wheezing) Label Comments: BREATHING prednisone 1 MG tablet 5 mg PO DAILY Hold Instructions: Hold while taking 40mg Prednisone, resume thereafter. biotin 10,000 MCG capsule 5,000 mcg PO DAILY furosemide 20 MG tablet 20 mg PO DAILY beclomethasone dipropionate 1 PUFF inhaler 2 puff INHALATION BID metoprolol succinate 25 MG tablet extended release 24 hr 25 mg PO BID Qty: 0 0RF Rx Instructions: Take one 25mg Tablets, twice daily (once in there morning, once in the evening). calcium 600 mg Capsule 600 mg PO DAILY vitamin A 2,400 mcg Capsule 2,400 mcg PO DAILY trazodone 50 mg Tablet 50 mg PO QHS tizanidine 4 mg tablet 4 mg PO PRN PRN (Reason: Anxiety) gabapentin 100 mg capsule 100 mg PO BID Label Comments: TAKE 1 CAPSULE BY MOUTH ONCE DAILY AT BEDTIME FOR 30 DAYS oxycodone 5 mg tablet 5 mg PO BID Label Comments: TAKE 1 TABLET BY MOUTH TWICE DAILY NEEDED FOR PAIN FOR UP TO 7 DAYS Held apixaban 2.5 MG tablet 2.5 mg PO BID Hold Instructions: Resume on 12/29/21. Resume on 12/29/2021 at your evening dose Discontinued aspirin [Adult Low Dose Aspirin] 81 mg tablet,delayed release (DR/EC) 81 mg PO QDAY Referrals / Follow Up: Cielo Ribeiro MD [Primary Care Provider] - Within 2 Weeks FriendDonell DO [STAFF PHYSICIAN] - See Referral Note (in three weeks-call for an appointment) Disposition Disposition (needs filled in before D/C Order can be placed): Home, Self Care Charges/Coding Visit Charges OBSV E&M: 60038 Observation care discharge
== END 2021-12-28 18:52 | disposition home or self-care (01) ==
LOC: ED 22:53 → MS3 23:19
PROVIDERS: Anesthesiology; Internal Medicine Gastroenterology; Admitting Provider Hospitalist; Emergency Provider Emergency Medicine; PCP Internal Medicine; Visit Provider Internal Medicine
PROC: 0DJD8ZZ Inspection of Lower Intestinal Tract, Via Natural or Artificial Opening Endoscopic (ICD-10-PCS; CPT 45378; principal; 2021-12-28 15:55)
DX: K31.811 Angiodysplasia of stomach and duodenum with bleeding (principal); M35.3 Polymyalgia rheumatica; I27.21 Secondary pulmonary arterial hypertension; I50.9 Heart failure, unspecified; I48.0 Paroxysmal atrial fibrillation; K57.30 Diverticulosis of large intestine without perforation or abscess without bleeding; K44.9 Diaphragmatic hernia without obstruction or gangrene; M25.532 Pain in left wrist; K64.0 First degree hemorrhoids; D50.9 Iron deficiency anemia, unspecified; M79.7 Fibromyalgia; Z79.01 Long term (current) use of anticoagulants; Z79.52 Long term (current) use of systemic steroids; I44.4 Left anterior fascicular block; R94.31 Abnormal electrocardiogram [ECG] [EKG]; Z79.899 Other long term (current) drug therapy; B02.9 Zoster without complications; K22.2 Esophageal obstruction; J45.909 Unspecified asthma, uncomplicated; M19.90 Unspecified osteoarthritis, unspecified site
CPT/HCPCS: 43255; 45378; 36415; 71045; 73100; 80048; 81001; 82274; 82728; 83540; 83550; 83605; 85025; 85610; 85652; 85730; 87040; 87633; 87811; 93005; 96361; 96365; 96366; 96367; 96375; 96376; 97166; 97802; 99218; 99284; J7030; J7050; J7120; P9612; A4216; G0378; J2405; J2916

== ENCOUNTER 2022-11-02 09:54 | Emergency (ER) | payer MEDICARE, SELFPAY ==
[2022-11-02 09:55] VITALS: BP 119/76; PULSE 78; RESP 16; TEMP 36.9; O2SAT 99; BMI 19.5
--- NOTE | 2022-11-02 10:33 | ED.VIS.LOWEX ---
HPI History of Present Illness Chief Complaint: Laceration Narrative Narrative: Patient has brittle skin, she is on Eliquis, she sustained a laceration of her right leg after a vacuum stitch cleaner fell on her leg. She is able to ambulate and has no bony tenderness. Tetanus is up-to-date. [facility] Medical History (Updated 11/02/22 @ 10:[address] Devonte Easton MD) Arthritis Ascending aorta dilatation Asthma Asthma Chronic pain Fibromyalgia First degree AV block Nonrheumatic mitral valve regurgitation Nonrheumatic tricuspid valve regurgitation Osteoporosis Paroxysmal atrial fibrillation PVCs (premature ventricular contractions) Secondary pulmonary arterial hypertension Home Medications albuterol sulfate 90 mcg/actuation aerosol inhaler 2 puff IH 4X/DAY PRN PRN Sob &/Or Wheezing 05/14/13 [History Last Taken 05/27/13 05:55] montelukast 10 mg tablet 10 mg PO DAILY allergies 05/14/13 [History Last Taken Unknown] apixaban 2.5 mg tablet 2.5 mg PO BID blood thinner 08/29/20 [History Last Taken Unknown] beclomethasone dipropionate 80 mcg/actuation HFA breath activated aerosol 2 puff inhalation BID breathing 08/29/20 [History Last Taken Unknown] biotin 10,000 mcg capsule 5,000 mcg PO DAILY supplement 08/29/20 [History Last Taken Unknown] furosemide 20 mg tablet 20 mg PO DAILY diuretic 08/29/20 [History Last Taken Unknown] prednisone 1 mg tablet 5 mg PO DAILY inflammation 08/29/20 [History Last Taken Unknown] metoprolol succinate 25 mg tablet,extended release 24 hr 25 mg PO BID #0 tabs 11/25/21 [Rx Last Taken Unknown] calcium 600 mg capsule 600 mg PO DAILY 12/09/21 [History Last Taken Unknown] tizanidine 4 mg tablet 4 mg PO PRN PRN Anxiety 12/09/21 [History Last Taken Unknown] trazodone 50 mg tablet 50 mg PO QHS 12/09/21 [History Last Taken Unknown] vitamin A 2,400 mcg capsule 2,400 mcg PO DAILY 12/09/21 [History Last Taken Unknown] gabapentin 100 mg capsule 100 mg PO BID 12/26/21 [History Last Taken Unknown] oxycodone 5 mg tablet 5 mg PO BID 12/26/21 [History Last Taken Unknown] ferrous sulfate 325 mg (65 mg iron) tablet 325 mg PO BID #60 tabs 12/28/21 [Rx Last Taken Unknown] pantoprazole 40 mg tablet,delayed release (Protonix) 40 mg PO BID #60 tabs 12/28/21 [Rx Last Taken Unknown] sucralfate 1 gram tablet (Carafate) 1 g PO .QID #28 tabs 12/28/21 [Rx Last Taken Unknown] Allergy/AdvReac Type Severity Reaction Status Date / Time No Known Allergies Allergy Verified 11/02/22 09:55 Family History Unknown No problems noted. Mother , at age 102 No cardiac disease Father Dementia Surgical History H/O mitral valve repair History of bilateral hip replacements History of cholecystectomy History of hysterectomy History of tonsillectomy Hx of cholecystectomy Social History household members: none Smoking Status: Never smoker substance use type: does not use ROS ROS ED ROS Narrative Past medical history: none Medications: Reviewed Social history: Noncontributory Review of systems: Musculoskeletal: As in HPI Skin: Laceration as in HPI Neurological: No weakness or paresthesias Hematologic: No easy bleeding or easy bruising EXAM Physical Exam Narrative Exam Narrative: Physical exam General: Patient does not appear in significant distress . Head: Normocephalic, Atraumatic Neck: No C-spine tenderness Cardiovascular: Normal distal pulses Back: Nontender, Normal Inspection. Extremities: There is a flap laceration in the form of the V, it is 5 cm on either side. This is anterior ibrahim region no bony tenderness. Skin: As above Neurological: Normal strength and sensation Const Vital Signs: 11/02/22 09:55 Temperature 98.4 F Temperature Source Temporal Pulse Rate 78 Respiratory Rate 16 Blood Pressure 119/76 Blood Pressure Mean 90 Pulse Ox 99 Oxygen Delivery Method Room Air MDM MDM MDM Narrative Medical decision making narrative: I thought about doing an x-ray however patient has no bony tenderness and she is able to ambulate. She is on Eliquis therefore an INR would not help at this time. I thought about suturing her however at this time she is quite brittle skin and we will Steri-Strip instead, I discussed with the patient and the son who is in the room who also gave me a history. Patient be discharged with follow-up with PCP. Discharge Plan Triage Chief Complaint: Laceration ED Provider: Devonte Easton Dx/Rx/DC Orders Clinical Impression: Laceration of leg, Contusion of leg Instructions: ED Laceration: All Closures Prescriptions: No Action montelukast 10 MG tablet 10 mg PO DAILY Label Comments: [employer] albuterol sulfate 6.7 GM HFA aerosol inhaler 2 puff IH 4X/DAY PRN PRN (Reason: Sob &/Or Wheezing) Label Comments: BREATHING prednisone 1 MG tablet 5 mg PO DAILY Hold Instructions: Hold while taking 40mg Prednisone, resume thereafter. biotin 10,000 MCG capsule 5,000 mcg PO DAILY furosemide 20 MG tablet 20 mg PO DAILY apixaban 2.5 MG tablet 2.5 mg PO BID Hold Instructions: Resume on 12/29/21. Resume on 12/29/2021 at your evening dose beclomethasone dipropionate 1 PUFF inhaler 2 puff INHALATION BID metoprolol succinate 25 MG tablet extended release 24 hr 25 mg PO BID Qty: 0 0RF Rx Instructions: Take one 25mg Tablets, twice daily (once in there morning, once in the evening). calcium 600 mg Capsule 600 mg PO DAILY vitamin A 2,400 mcg Capsule 2,400 mcg PO DAILY trazodone 50 mg Tablet 50 mg PO QHS tizanidine 4 mg tablet 4 mg PO PRN PRN (Reason: Anxiety) gabapentin 100 mg capsule 100 mg PO BID Label Comments: TAKE 1 CAPSULE BY MOUTH ONCE DAILY AT BEDTIME FOR 30 DAYS oxycodone 5 mg tablet 5 mg PO BID Label Comments: TAKE 1 TABLET BY MOUTH TWICE DAILY NEEDED FOR PAIN FOR UP TO 7 DAYS sucralfate [Carafate] 1 gram tablet 1 g PO .QID Qty: 28 0RF Rx Instructions: If you are unable to swallow this medication, stop it-make sure you take your pantoprazole pantoprazole [Protonix] 40 mg tablet,delayed release (DR/EC) 40 mg PO BID Qty: 60 0RF ferrous sulfate 325 mg (65 mg iron) tablet 325 mg PO BID Qty: 60 0RF Primary Care Provider: Cielo Ribeiro Referrals: Cielo Ribeiro MD [Primary Care Provider] - 2 Days for wound check Disposition Disposition: Home, Self Care
== END 2022-11-02 10:48 | disposition home or self-care (01) ==
LOC: ED 10:45
PROVIDERS: Emergency Provider Emergency Medicine; PCP Internal Medicine; Visit Provider Emergency Medicine
DX: S81.811A Laceration without foreign body, right lower leg, initial encounter (principal); I48.0 Paroxysmal atrial fibrillation; S80.11XA Contusion of right lower leg, initial encounter; Z79.01 Long term (current) use of anticoagulants; X58.XXXA Exposure to other specified factors, initial encounter
CPT/HCPCS: 99282

== ENCOUNTER 2022-11-13 11:26 | Emergency (ER) | payer MEDICARE, SELFPAY ==
[2022-11-13 11:27] VITALS: BP 112/63; PULSE 90; RESP 18; TEMP 37.2; O2SAT 97
--- NOTE | 2022-11-13 11:53 | EX.ED.DYSGE1 ---
HPI <AYAN Spencer - Last Filed: 11/13/22 12:51> History of Present Illness Chief Complaint: Wound Narrative Narrative: Patient is an 87-year-old female with history of atrial fibrillation on Eliquis, polymyalgia, chronic prednisone use who presents to the emergency department for concern for infected wound. Patient was seen here on November 02, 2022, she was cleaning a house when a vacuum fell on her left leg causing a skin tear. She does have some difficulty healing secondary to chronic steroid use, she noticed 3 to 4 days ago that is getting more swollen, more red more painful and she is here for evaluation. She states to have subjective fevers, chills. She denies any gross drainage. She did see a hydramatic mechanic who did put a bandage on it however she states it is continuing to seep. Patient is here with her son. [facility] <AYAN Spencer - Last Filed: 11/13/22 12:51> [facility] Medical History (Updated 11/13/22 @ 12:47 by AYAN Spencer) Arthritis Ascending aorta dilatation Asthma Asthma Chronic pain Fibromyalgia First degree AV block Nonrheumatic mitral valve regurgitation Nonrheumatic tricuspid valve regurgitation Osteoporosis Paroxysmal atrial fibrillation PVCs (premature ventricular contractions) Secondary pulmonary arterial hypertension Home Medications albuterol sulfate 90 mcg/actuation aerosol inhaler 2 puff IH 4X/DAY PRN PRN Sob &/Or Wheezing 05/14/13 [History Last Taken 05/27/13 05:55] montelukast 10 mg tablet 10 mg PO DAILY allergies 05/14/13 [History Last Taken Unknown] apixaban 2.5 mg tablet 2.5 mg PO BID blood thinner 08/29/20 [History Last Taken Unknown] beclomethasone dipropionate 80 mcg/actuation HFA breath activated aerosol 2 puff inhalation BID breathing 08/29/20 [History Last Taken Unknown] biotin 10,000 mcg capsule 5,000 mcg PO DAILY supplement 08/29/20 [History Last Taken Unknown] furosemide 20 mg tablet 20 mg PO DAILY diuretic 08/29/20 [History Last Taken Unknown] prednisone 1 mg tablet 5 mg PO DAILY inflammation 08/29/20 [History Last Taken Unknown] metoprolol succinate 25 mg tablet,extended release 24 hr 25 mg PO BID #0 tabs 11/25/21 [Rx Last Taken Unknown] calcium 600 mg capsule 600 mg PO DAILY 12/09/21 [History Last Taken Unknown] tizanidine 4 mg tablet 4 mg PO PRN PRN Anxiety 12/09/21 [History Last Taken Unknown] trazodone 50 mg tablet 50 mg PO QHS 12/09/21 [History Last Taken Unknown] vitamin A 2,400 mcg capsule 2,400 mcg PO DAILY 12/09/21 [History Last Taken Unknown] gabapentin 100 mg capsule 100 mg PO BID 12/26/21 [History Last Taken Unknown] oxycodone 5 mg tablet 5 mg PO BID 12/26/21 [History Last Taken Unknown] ferrous sulfate 325 mg (65 mg iron) tablet 325 mg PO BID #60 tabs 12/28/21 [Rx Last Taken Unknown] pantoprazole 40 mg tablet,delayed release (Protonix) 40 mg PO BID #60 tabs 12/28/21 [Rx Last Taken Unknown] sucralfate 1 gram tablet (Carafate) 1 g PO .QID #28 tabs 12/28/21 [Rx Last Taken Unknown] cephalexin 500 mg capsule 500 mg PO Q6 #40 CAPSULES 11/13/22 [Rx Last Taken Unknown] oxycodone-acetaminophen 5 mg-325 mg tablet (Percocet) 1 tab PO Q8H PRN pain 2 days #7 tabs 11/13/22 [Rx Last Taken Unknown] sulfamethoxazole 800 mg-trimethoprim 160 mg tablet (Bactrim DS) 1 tab PO BID #20 tabs 11/13/22 [Rx Last Taken Unknown] Allergy/AdvReac Type Severity Reaction Status Date / Time No Known Allergies Allergy Verified 11/13/22 11:31 Family History Unknown No problems noted. Mother , at age 102 No cardiac disease Father Dementia Surgical History H/O mitral valve repair History of bilateral hip replacements History of cholecystectomy History of hysterectomy History of tonsillectomy Hx of cholecystectomy Social History household members: none Smoking Status: Never smoker substance use type: does not use ROS <AYAN Spencer - Last Filed: 11/13/22 12:51> ROS ED ROS Narrative Constitutional: Negative for fever, chills, weight loss, weakness Eyes: Negative for vision loss, vision change, double vision ENT: Negative for any sore throat, ear pain, congestion Cardiovascular: Negative for any chest pain, tightness, palpitations Respiratory: Negative for any cough, sputum production, hemoptysis, dyspnea, dyspnea on exertion, orthopnea Gastrointestinal: Negative for any abdominal pain, nausea, vomiting, diarrhea, constipation, blood in stool, blood in vomit : Negative for any urinary frequency, dysuria, retention, blood in urine Muscle skeletal: Negative for any muscle joint pain, stiffness, myalgias, arthralgias, neck pain, back pain Neurological: Negative for any headache, syncope, numbness or tingling, dizziness Skin: Negative for any rashes, lumps, itching, abrasions, lacerations. Positive for wound to the left lateral leg Psychiatric: Negative for any depression, anxiety, stress, suicidal ideation, homicidal ideation Hematologic: Negative for any easy bruising, excessive bruising, easy bleeding Allergies: Negative for any eczema, hives, rash EXAM <AYAN Spencer - Last Filed: 11/13/22 12:51> Physical Exam Narrative Exam Narrative: Vital signs reviewed. Patient alert and orient x4. Patient's vital signs are stable. No signs or symptoms of sepsis HEET: Head normocephalic atraumatic, TMs clear bilaterally. Posterior pharynx is clear, moist mucous membranes. Nares clear bilaterally. Neck: Supple with no lymphadenopathy or tenderness. No signs of meningismus, negative jolt sign. Cardiac: Regular rate and rhythm no murmurs gallops or rubs, equal peripheral pulses bilaterally. Respiratory: Lungs clear to auscultation bilaterally. No chest tenderness. Abdomen: Soft, nontender, nondistended. No abdominal bruit or pulsatile masses. No hepatosplenomegaly Extremities: Patient does have a 3 cm x 4 cm wound to the lateral left lower extremity just above the lateral malleolus. There is no foul-smelling odor, patient does have some cellulitis surrounding the area that goes down to the dorsal aspect of the foot. Pain on palpation. No neurological focal deficit. There is a blister around the wound. Active full range of motion of all extremities. Neuro: Cranial nerves II through XII intact, no focal neurological deficits. Skin: Clean dry and intact with no rash, purpura, petechiae, vesicles or pustules. Backs/flank: No CVA tenderness, no midline spinal tenderness, no deformity. Psych: Normal mood and affect. No SI, HI or acute psychosis. Const Vital Signs: 11/13/22 11:27 Temperature 98.9 F Temperature Source Temporal Pulse Rate 90 Respiratory Rate 18 Blood Pressure 112/63 Blood Pressure Mean 79 Pulse Ox 97 Oxygen Delivery Method Room Air Positive well nourished and well developed General Appearance ED: well developed <Dr. Halie Pedroza MD - Last Filed: 11/13/22 13:16> Physical Exam Const Vital Signs: 11/13/22 11:27 Temperature 98.9 F Temperature Source Temporal Pulse Rate 90 Respiratory Rate 18 Blood Pressure 112/63 Blood Pressure Mean 79 Pulse Ox 97 Oxygen Delivery Method Room Air MDM <AYAN Spencer - Last Filed: 11/13/22 12:51> MDM Lab Data Labs: Laboratory Results - last 24 hr 11/13/22 11/13/22 12:02 12:02 WBC 9.1 RBC 4.08 L Hgb 11.8 L Hct 37.3 MCV 91.4 MCH 28.9 MCHC 31.6 L RDW Std Deviation 48.2 H RDW Coeff of Carey 14.3 Plt Count 211 MPV 9.4 Immature Gran % (Auto) 1.100 H Neut % (Auto) 79.3 H Lymph % (Auto) 8.9 L [place] % (Auto) 9.7 Eos % (Auto) 0.7 Baso % (Auto) 0.3 Absolute Neuts (auto) 7.2 Absolute Lymphs (auto) 0.81 L Nucleated RBC % 0 Sodium 138 Potassium 3.6 Chloride 106 Carbon Dioxide 26.0 Anion Gap 6 BUN 23 H Creatinine 1.06 H Est GFR (MDRD) Af Amer 63 Est GFR (MDRD) Non-Af 52 L BUN/Creatinine Ratio 21.7 H Glucose 95 Calcium 9.3 Treatment and Re-Evaluation :: Patient appears well, patient appears nontoxic, vital signs are stable. Patient presents to the emergency department with complaints of increased pain to a wound to the left lower extremity. Patient is concerned for infection. There does appear to be some cellulitis surrounding the wound which is 3 x 4 cm. There is a blister noted. There is no gross yellow drainage. There is redness that surrounds the wound to the dorsal aspect the foot. Basic laboratory values will be drawn, as well as an IV dose of antibiotics. She will be started on Ancef here. Patient appears well, patient appears nontoxic, vital signs are stable. Patient presents to the emergency department with wound to the left lateral leg that occurred greater than 10 days ago. Patient presents emerged department for concern for infection. Patient's physical examination is consistent with cellulitis. Consider an x-ray of the tibia-fibula however do not believe that this is necessary at this time as this does not show some deep tissue infection. Differential diagnosis could include gout, osteomyelitis, patient has no fever or chills, no blood cell count. Patient's laboratory values were unremarkable. Patient was given Ancef IV here. She be placed on Keflex, as well as Bactrim for 10 days. She will be referred to the wound care center here, and to follow-up closely. She and her son were given discharge instructions, all questions were answered. Return precautions given. <Dr. Halie Pedroza MD - Last Filed: 11/13/22 13:16> [facility] Lab Data Labs: Laboratory Results - last 24 hr 11/13/22 11/13/22 12:02 12:02 WBC 9.1 RBC 4.08 L Hgb 11.8 L Hct 37.3 MCV 91.4 MCH 28.9 MCHC 31.6 L RDW Std Deviation 48.2 H RDW Coeff of [place] 14.3 Plt Count 211 MPV 9.4 Immature Gran % (Auto) 1.100 H Neut % (Auto) 79.3 H Lymph % (Auto) 8.9 L [place] % (Auto) 9.7 Eos % (Auto) 0.7 Baso % (Auto) 0.3 Absolute Neuts (auto) 7.2 Absolute Lymphs (auto) 0.81 L Nucleated RBC % 0 Sodium 138 Potassium 3.6 Chloride 106 Carbon Dioxide 26.0 Anion Gap 6 BUN 23 H Creatinine 1.06 H Est GFR (MDRD) Af Amer 63 Est GFR (MDRD) Non-Af 52 L BUN/Creatinine Ratio 21.7 H Glucose 95 Calcium 9.3 Treatment and Re-Evaluation :: Patient appears well, patient appears nontoxic, vital signs are stable. Patient presents to the emergency department with complaints of increased pain to a wound to the left lower extremity. Patient is concerned for infection. There does appear to be some cellulitis surrounding the wound which is 3 x 4 cm. There is a blister noted. There is no gross yellow drainage. There is redness that surrounds the wound to the dorsal aspect the foot. Basic laboratory values will be drawn, as well as an IV dose of antibiotics. She will be started on Ancef here. Patient appears well, patient appears nontoxic, vital signs are stable. Patient presents to the emergency department with wound to the left lateral leg that occurred greater than 10 days ago. Patient presents emerged department for concern for infection. Patient's physical examination is consistent with cellulitis. Consider an x-ray of the tibia-fibula however do not believe that this is necessary at this time as this does not show some deep tissue infection. Differential diagnosis could include gout, osteomyelitis, patient has no fever or chills, no blood cell count. Patient's laboratory values were unremarkable. Patient was given Ancef IV here. She be placed on Keflex, as well as Bactrim for 10 days. She will be referred to the wound care center here, and to follow-up closely. She and her son were given discharge instructions, all questions were answered. Return precautions given. Patient seen and evaluated with LIS. I personally interviewed and examined the patient. I was involved in all aspects of patient's orders, interpretation of results, and treatment. Patient presents for evaluation of right lower extremity wound. She was seen here earlier this month after a vacuum fell and injured her right lower leg. She had a V shaped flap laceration that was Steri-Strips and dressing applied. Patient states that over the past couple days she has not had increased redness and pain. She had subjective fever. Patient sitting upright in bed no acute distress. Nontoxic-appearing. Head and neck examination unremarkable. Heart is regular rate and rhythm. Lung sounds are clear. Abdomen is soft and nontender. Right lower extremity examination reveals a partially healed V shaped flap laceration over the right lower leg. There is minimal surrounding erythema that extends onto the foot. CBC and chemistry studies obtained. White count is unremarkable at this time. Patient given a dose of Ancef here and be treated with Keflex and Bactrim at home. She was referred to wound care center for follow-up. Disposition: Discharge Discharge Plan Triage Chief Complaint: Wound Other Complaint: Edema ED Midlevel Provider: Devonte Bray ED Provider: Halie Pedroza Dx/Rx/DC Orders Clinical Impression: Cellulitis, Wound cellulitis Instructions: ED Cellulitis Prescriptions: New oxycodone-acetaminophen [Percocet] 5-325 mg tablet 1 tab PO Q8H PRN (Reason: pain) 2 Days Qty: 7 0RF cephalexin 500 mg capsule 500 mg PO Q6 Qty: 40 0RF sulfamethoxazole-trimethoprim [Bactrim DS] 800-160 mg tablet 1 tab PO BID Qty: 20 0RF No Action montelukast 10 MG tablet 10 mg PO DAILY Label Comments: [employer] albuterol sulfate 6.7 GM HFA aerosol inhaler 2 puff IH 4X/DAY PRN PRN (Reason: Sob &/Or Wheezing) Label Comments: BREATHING prednisone 1 MG tablet 5 mg PO DAILY Hold Instructions: Hold while taking 40mg Prednisone, resume thereafter. biotin 10,000 MCG capsule 5,000 mcg PO DAILY furosemide 20 MG tablet 20 mg PO DAILY apixaban 2.5 MG tablet 2.5 mg PO BID Hold Instructions: Resume on 12/29/21. Resume on 12/29/2021 at your evening dose beclomethasone dipropionate 1 PUFF inhaler 2 puff INHALATION BID metoprolol succinate 25 MG tablet extended release 24 hr 25 mg PO BID Qty: 0 0RF Rx Instructions: Take one 25mg Tablets, twice daily (once in there morning, once in the evening). calcium 600 mg Capsule 600 mg PO DAILY vitamin A 2,400 mcg Capsule 2,400 mcg PO DAILY trazodone 50 mg Tablet 50 mg PO QHS tizanidine 4 mg tablet 4 mg PO PRN PRN (Reason: Anxiety) gabapentin 100 mg capsule 100 mg PO BID Label Comments: TAKE 1 CAPSULE BY MOUTH ONCE DAILY AT BEDTIME FOR 30 DAYS oxycodone 5 mg tablet 5 mg PO BID Label Comments: TAKE 1 TABLET BY MOUTH TWICE DAILY NEEDED FOR PAIN FOR UP TO 7 DAYS sucralfate [Carafate] 1 gram tablet 1 g PO .QID Qty: 28 0RF Rx Instructions: If you are unable to swallow this medication, stop it-make sure you take your pantoprazole pantoprazole [Protonix] 40 mg tablet,delayed release (DR/EC) 40 mg PO BID Qty: 60 0RF ferrous sulfate 325 mg (65 mg iron) tablet 325 mg PO BID Qty: 60 0RF Primary Care Provider: Cielo Ribeiro Referrals: Cielo Ribeiro MD [Primary Care Provider] - Wound,Center [Non-Staff] - (Please follow-up with the wound care center. Please call Monday. You need constant work-up for this wound.) Activity Restrictions/Additional Instructions: Please return for worsening redness, pain, gross drainage. Please return for any fever chills Disposition Disposition: Home, Self Care
[2022-11-13] MEDS: oxyCODONE 5 MG Tablet PO (11:57)
[2022-11-13 12:06] LABS: Absolute Lymphocyte Count 0.81 X10^3/uL (0.83-4.51); Absolute Neutrophil Count 7.2 X10^3/uL (2.0-7.7); Basophil# 0.03 X10^3/uL; Basophil% 0.3 % (0-1); Eosinophil# 0.06 X10^3/uL; Eosinophils% 0.7 % (0-5); Hematocrit 37.3 % (37-47); Hemoglobin 11.8 g/dL (12.0-15.0); Lymphocyte # 0.81 X10^3/ul (0.83-4.51); Lymphocyte % 8.9 % (19-41); Mean Corp Hgb Conc 31.6 g/dL (32-36); Mean Corpuscular Hgb 28.9 pg (27.0-32.0); Mean Corpuscular Volume 91.4 fL (81-99); Mean Platelet Vol. 9.4 fl (6.2-12.0); Monocyte# 0.88 X10^3/uL; Monocyte% 9.7 % (0-10); NRBC Flagged by Analyzer 0 % (0-5); Neutrophil # 7.22 X10^3/uL (2.7-7.7); Neutrophil % 79.3 % (47-70); Platelet Count 211 K/mm3 (150-450); RBC Distribution Width CV 14.3 % (11.6-14.6); RBC Distribution Width SD 48.2 fl (35.1-43.9); Red Blood Count 4.08 M/mm3 (4.2-5.4); White Blood Count 9.1 K/mm3 (4.4-11.0)
[2022-11-13] MEDS: Cefazolin 1 GM/50 ML BAG IV (12:09)
[2022-11-13 12:27] LABS: Anion Gap 6 (5-15); BUN 23 mg/dL (7-18); BUN/Creat Ratio 21.7 RATIO (10-20); Calcium,Total 9.3 mg/dL (8.5-10.1); Chloride 106 mmol/L (98-107); Creatinine, Serum 1.06 mg/dL (0.55-1.02); EST Glomerular Filtration Rate 52 mL/min (>60); Est Glom Filt Rate - Afr Amer 63 mL/min (>60); Glucose 95 mg/dL (74-106); Potassium 3.6 mmol/L (3.5-5.1); Sodium Level 138 mmol/L (136-145)
== END 2022-11-13 13:21 | disposition home or self-care (01) ==
PROVIDERS: Nurse Practitioner; Emergency Provider Emergency Medicine; PCP Internal Medicine; Referring Provider Emergency Medicine; Visit Provider Emergency Medicine
DX: L03.116 Cellulitis of left lower limb (principal); I48.0 Paroxysmal atrial fibrillation; J45.909 Unspecified asthma, uncomplicated; Z79.01 Long term (current) use of anticoagulants; Z79.899 Other long term (current) drug therapy
CPT/HCPCS: 80048; 85025; 96365; 99282; A4216

== ENCOUNTER 2022-11-14 20:37 | Emergency (ER) | payer MEDICARE, SELFPAY ==
[2022-11-14 20:38] VITALS: BP 84/59; PULSE 86; RESP 14; TEMP 37.3; O2SAT 94
[2022-11-14 20:55] VITALS: BP 109/57; PULSE 104; RESP 18; TEMP 37.3; O2SAT 96
[2022-11-14 20:57] VITALS: BMI 19.4
--- NOTE | 2022-11-14 21:10 | ED.VIS.LOWEX ---
HPI History of Present Illness Chief Complaint: Wound Informant: patient Narrative Narrative: Patient was seen here yesterday for a wound that was suspected to have become infected over the past 4 days or so, and she presents for a wound reevaluation. It has been about 24 hours since she started antibiotics after receiving an injection of Ancef here, today she had a fever that was transient and no longer present despite not treating it, she is having increased swelling and redness distal to the wound on her right lower leg, but not proximally, and the wound itself is unchanged. She originally sustained a small minor flap wound about 2 weeks ago when a vacuum hit her in the leg. She is on prednisone daily chronically because of PMR, according to what she and the family are saying, and therefore her skin is always sensitive and she has trouble healing. Not a diabetic. She denies any other symptoms such as dysuria, cough, dyspnea, focal neurologic symptoms. [facility] Medical History Arthritis Ascending aorta dilatation Asthma Asthma Chronic pain Fibromyalgia First degree AV block Nonrheumatic mitral valve regurgitation Nonrheumatic tricuspid valve regurgitation Osteoporosis Paroxysmal atrial fibrillation PVCs (premature ventricular contractions) Secondary pulmonary arterial hypertension Home Medications albuterol sulfate 90 mcg/actuation aerosol inhaler 2 puff IH 4X/DAY PRN PRN Sob &/Or Wheezing 05/14/13 [History Last Taken 05/27/13 05:55] montelukast 10 mg tablet 10 mg PO DAILY allergies 05/14/13 [History Last Taken Unknown] apixaban 2.5 mg tablet 2.5 mg PO BID blood thinner 08/29/20 [History Last Taken Unknown] beclomethasone dipropionate 80 mcg/actuation HFA breath activated aerosol 2 puff inhalation BID breathing 08/29/20 [History Last Taken Unknown] biotin 10,000 mcg capsule 5,000 mcg PO DAILY supplement 08/29/20 [History Last Taken Unknown] furosemide 20 mg tablet 20 mg PO DAILY diuretic 08/29/20 [History Last Taken Unknown] prednisone 1 mg tablet 5 mg PO DAILY inflammation 08/29/20 [History Last Taken Unknown] metoprolol succinate 25 mg tablet,extended release 24 hr 25 mg PO BID #0 tabs 11/25/21 [Rx Last Taken Unknown] calcium 600 mg capsule 600 mg PO DAILY 12/09/21 [History Last Taken Unknown] tizanidine 4 mg tablet 4 mg PO PRN PRN Anxiety 12/09/21 [History Last Taken Unknown] trazodone 50 mg tablet 50 mg PO QHS 12/09/21 [History Last Taken Unknown] vitamin A 2,400 mcg capsule 2,400 mcg PO DAILY 12/09/21 [History Last Taken Unknown] gabapentin 100 mg capsule 100 mg PO BID 12/26/21 [History Last Taken Unknown] oxycodone 5 mg tablet 5 mg PO BID 12/26/21 [History Last Taken Unknown] ferrous sulfate 325 mg (65 mg iron) tablet 325 mg PO BID #60 tabs 12/28/21 [Rx Last Taken Unknown] pantoprazole 40 mg tablet,delayed release (Protonix) 40 mg PO BID #60 tabs 12/28/21 [Rx Last Taken Unknown] sucralfate 1 gram tablet (Carafate) 1 g PO .QID #28 tabs 12/28/21 [Rx Last Taken Unknown] cephalexin 500 mg capsule 500 mg PO Q6 #40 CAPSULES 11/13/22 [Rx Last Taken Unknown] oxycodone-acetaminophen 5 mg-325 mg tablet (Percocet) 1 tab PO Q8H PRN pain 2 days #7 tabs 11/13/22 [Rx Last Taken Unknown] sulfamethoxazole 800 mg-trimethoprim 160 mg tablet (Bactrim DS) 1 tab PO BID #20 tabs 11/13/22 [Rx Last Taken Unknown] ondansetron 4 mg disintegrating tablet 8 mg PO Q8H PRN PRN Nausea #14 tabs 11/14/22 [Rx Last Taken Unknown] Allergy/AdvReac Type Severity Reaction Status Date / Time No Known Allergies Allergy Verified 11/14/22 20:38 Family History Unknown No problems noted. Mother , at age 102 No cardiac disease Father Dementia Surgical History H/O mitral valve repair History of bilateral hip replacements History of cholecystectomy History of hysterectomy History of tonsillectomy Hx of cholecystectomy Social History household members: none Smoking Status: Never smoker substance use type: does not use ROS ROS ED Constitutional Constitutional ED: Reports fever(s) and malaise; Denies chills Musculoskeletal Musculoskeletal: Reports extremity pain; Denies neck pain Integumentary Reports rash and wounds; Denies Abrasions Neurologic Neurologic: Denies paresthesias or weakness Psychiatric Psychiatric: Reports anxiety EXAM Physical Exam Const Vital Signs: 11/14/22 20:38 11/14/22 20:55 Temperature 99.2 F H 99.1 F Temperature Source Temporal Oral Pulse Rate 86 104 H Respiratory Rate 14 18 Blood Pressure 84/59 L 109/57 L Blood Pressure Mean 67 74 Pulse Ox 94 96 Oxygen Delivery Method Room Air Room Air Positive well nourished and well developed Constitutional Narrative: Well-appearing in no distress conversive in full sentences General Appearance ED: well developed and NAD Neck full ROM and supple Back/Spine normal ROM and normal to inspection Extremity full ROM Extremity Narrative: Right lower leg wound, there is distal/dependent swelling and blanching erythema, all of it is tender, including areas that are normal-appearing see below skin exam Neuro oriented x3, no focal motor deficits and no sensory deficits noted Sensorium / Orientation: alert Psych mental status grossly normal and thought process normal Mood & Affect: anxious Skin Skin Narrative: Wound right lower leg, mildly tender but the entire leg is tender even normal-appearing areas, patient saying I am very sensitive, no discharge from the wound, no abscess. Blanching erythema and swelling distal to this mostly dependent in the foot, some in the ankle as well, all of which is tender no subcutaneous emphysema, full range of motion of all joints. MDM MDM MDM Narrative Medical decision making narrative: Patient appears well. Her initial vital signs, her systolic pressure was a little low but on recheck without treatment she is 109/57, she is a little anxious but I think she appears well. I did not see this wound yesterday, however not overly concerned about the wound, more the erythema distal to it which may be cellulitis, which she is being treated for. If her fever is due to this, she is not feeling outpatient treatment since she just barely has had 24 hours worth of antibiotics. I reassured them. Since she is relatively no compromise given the steroids, I think it is reasonable to obtain some blood cultures which were not done yesterday, to help cover her bases and screen for bacteremia, I am at a very low suspicion for that here. She had blood counts less than 24 hours ago that were normal and I do not think there is necessarily need to be repeated. We redressed the wound for her, she has an appointment with her PCP tomorrow for reevaluation. Discussed all this with she and family and they are comfortable with that plan. Discharge Plan Triage Chief Complaint: Wound ED Provider: Jabari Guzman Dx/Rx/DC Orders Clinical Impression: Encounter for wound re-check, Wound cellulitis Instructions: Cellulitis Dc Prescriptions: New ondansetron [ondansetron] 4 mg tablet,disintegrating 8 mg PO Q8H PRN PRN (Reason: Nausea) Qty: 14 0RF No Action montelukast 10 MG tablet 10 mg PO DAILY Label Comments: [employer] albuterol sulfate 6.7 GM HFA aerosol inhaler 2 puff IH 4X/DAY PRN PRN (Reason: Sob &/Or Wheezing) Label Comments: BREATHING prednisone 1 MG tablet 5 mg PO DAILY Hold Instructions: Hold while taking 40mg Prednisone, resume thereafter. biotin 10,000 MCG capsule 5,000 mcg PO DAILY furosemide 20 MG tablet 20 mg PO DAILY apixaban 2.5 MG tablet 2.5 mg PO BID Hold Instructions: Resume on 12/29/21. Resume on 12/29/2021 at your evening dose beclomethasone dipropionate 1 PUFF inhaler 2 puff INHALATION BID metoprolol succinate 25 MG tablet extended release 24 hr 25 mg PO BID Qty: 0 0RF Rx Instructions: Take one 25mg Tablets, twice daily (once in there morning, once in the evening). calcium 600 mg Capsule 600 mg PO DAILY vitamin A 2,400 mcg Capsule 2,400 mcg PO DAILY trazodone 50 mg Tablet 50 mg PO QHS tizanidine 4 mg tablet 4 mg PO PRN PRN (Reason: Anxiety) gabapentin 100 mg capsule 100 mg PO BID Label Comments: TAKE 1 CAPSULE BY MOUTH ONCE DAILY AT BEDTIME FOR 30 DAYS oxycodone 5 mg tablet 5 mg PO BID Label Comments: TAKE 1 TABLET BY MOUTH TWICE DAILY NEEDED FOR PAIN FOR UP TO 7 DAYS sucralfate [Carafate] 1 gram tablet 1 g PO .QID Qty: 28 0RF Rx Instructions: If you are unable to swallow this medication, stop it-make sure you take your pantoprazole pantoprazole [Protonix] 40 mg tablet,delayed release (DR/EC) 40 mg PO BID Qty: 60 0RF ferrous sulfate 325 mg (65 mg iron) tablet 325 mg PO BID Qty: 60 0RF oxycodone-acetaminophen [Percocet] 5-325 mg tablet 1 tab PO Q8H PRN (Reason: pain) 2 Days Qty: 7 0RF cephalexin 500 mg capsule 500 mg PO Q6 Qty: 40 0RF sulfamethoxazole-trimethoprim [Bactrim DS] 800-160 mg tablet 1 tab PO BID Qty: 20 0RF Primary Care Provider: Cielo Ribeiro Referrals: Cielo Ribeiro MD [Primary Care Provider] - (as scheduled/directed) Activity Restrictions/Additional Instructions: Continue antibiotics as prescribed Disposition Disposition: Home, Self Care Discharge Date/Time: 11/14/22 21:46
== END 2022-11-14 21:46 | disposition home or self-care (01) ==
LOC: ED 21:25
PROVIDERS: Emergency Provider Emergency Medicine; PCP Internal Medicine; Visit Provider Emergency Medicine
DX: Z51.89 Encounter for other specified aftercare (principal); L03.115 Cellulitis of right lower limb
CPT/HCPCS: 87040; 99282

== ENCOUNTER 2022-12-08 08:45 | Outpatient (RCR) | payer MEDICARE, SELFPAY ==
[2022-11-17 08:14] VITALS: BP 110/58; PULSE 84; RESP 16; TEMP 36.4; BMI 18.8
--- NOTE | 2022-11-17 08:33 | WC ---
PT STATES NO CHANGES IN MEDS SINCE RECENT DISCHARGE FROM ER.. VERIFIED W/ SON.
--- NOTE | 2022-11-17 09:18 | PCM.WC.HP ---
History of Present Illness Date of Service: 11/17/22 Chief Complaint: Right Leg Wound History of Wound: Ms. Lopez is an 87 yo who was referred to the wound center due to nonhealing right leg wound. Sustained wound about 3 weeks ago. 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 Initially seen in the emergency room and had Steri-Strips placed on it however this did not help. Subsequently seen by her barrel endshaker adjuster and was given DuoDERM however, with the application of DuoDERM wound became infected. Discontinued DuoDERM and has been applying Jerod pads and antibiotic ointment. She is also currently on oral antibiotics. Chronic steroid use with history of recurrent wounds thin skin. She feels well otherwise, no chills, nausea, vomiting or change in bowel habits reported. [facility] Medical History (Updated 11/17/22 @ 09:[address] Jerry Chaves MD) Arthritis Ascending aorta dilatation Asthma Asthma Chronic pain Fibromyalgia First degree AV block detention (current) use of systemic steroids detention current use of anticoagulant Nonrheumatic mitral valve regurgitation Nonrheumatic tricuspid valve regurgitation Osteoporosis Paroxysmal atrial fibrillation PVCs (premature ventricular contractions) Secondary pulmonary arterial hypertension Wound of right lower extremity Home Medications albuterol sulfate 90 mcg/actuation aerosol inhaler 2 puff IH 4X/DAY PRN PRN Sob &/Or Wheezing 05/14/13 [History Last Taken 05/27/13 05:55] montelukast 10 mg tablet 10 mg PO DAILY allergies 05/14/13 [History Last Taken Unknown] apixaban 2.5 mg tablet 2.5 mg PO BID blood thinner 08/29/20 [History Last Taken Unknown] beclomethasone dipropionate 80 mcg/actuation HFA breath activated aerosol 2 puff inhalation BID breathing 08/29/20 [History Last Taken Unknown] biotin 10,000 mcg capsule 5,000 mcg PO DAILY supplement 08/29/20 [History Last Taken Unknown] furosemide 20 mg tablet 20 mg PO DAILY diuretic 08/29/20 [History Last Taken Unknown] prednisone 1 mg tablet 5 mg PO DAILY inflammation 08/29/20 [History Last Taken Unknown] metoprolol succinate 25 mg tablet,extended release 24 hr 25 mg PO BID #0 tabs 11/25/21 [Rx Last Taken Unknown] calcium 600 mg capsule 600 mg PO DAILY 05/26/22 [History Last Taken Unknown] tizanidine 4 mg tablet 4 mg PO PRN PRN Anxiety 12/09/21 [History Last Taken Unknown] trazodone 50 mg tablet 50 mg PO QHS 12/09/21 [History Last Taken Unknown] vitamin A 2,400 mcg capsule 2,400 mcg PO DAILY 12/09/21 [History Last Taken Unknown] gabapentin 100 mg capsule 100 mg PO BID 12/26/21 [History Last Taken Unknown] oxycodone 5 mg tablet 5 mg PO BID 12/26/21 [History Last Taken Unknown] ferrous sulfate 325 mg (65 mg iron) tablet 325 mg PO BID #60 tabs 12/28/21 [Rx Last Taken Unknown] pantoprazole 40 mg tablet,delayed release (Protonix) 40 mg PO BID #60 tabs 12/28/21 [Rx Last Taken Unknown] sucralfate 1 gram tablet (Carafate) 1 g PO .QID #28 tabs 12/28/21 [Rx Last Taken Unknown] cephalexin 500 mg capsule 500 mg PO Q6 #40 CAPSULES 11/13/22 [Rx Last Taken Unknown] oxycodone-acetaminophen 5 mg-325 mg tablet (Percocet) 1 tab PO Q8H PRN pain 2 days #7 tabs 11/13/22 [Rx Last Taken Unknown] sulfamethoxazole 800 mg-trimethoprim 160 mg tablet (Bactrim DS) 1 tab PO BID #20 tabs 11/13/22 [Rx Last Taken Unknown] ondansetron 4 mg disintegrating tablet 8 mg PO Q8H PRN PRN Nausea #14 tabs 11/14/22 [Rx Last Taken Unknown] Allergy/AdvReac Type Severity Reaction Status Date / Time No Known Allergies Allergy Verified 11/17/22 08:33 Family History Unknown No problems noted. Mother , at age 102 No cardiac disease Father Dementia Surgical History H/O mitral valve repair History of bilateral hip replacements History of cholecystectomy History of hysterectomy History of tonsillectomy Hx of cholecystectomy Social History household members: none Smoking Status: Never smoker substance use type: does not use ROS Review of Systems ROS Unobtainable: other Constitutional Constitutional: Denies fatigue, fever(s), poor appetite, weight gain or weight loss ENT HEENT: Denies mouth lesions Cardiovascular Cardiovascular: Denies abdominal bloating, abdominal edema or abdominal pain Respiratory/Chest Respiratory/Chest: Denies change in mental status, change in phlegm color, chest congestion or chest tightness Gastrointestinal Gastrointestinal: Denies belching, bloating, change in bowel habits, change in stool character, chewing difficulty, coffee ground emesis, constipation, cramping, diarrhea, dyspepsia, dysphagia, early satiety, excessive flatus, fecal incontinence, heartburn, hematemesis, hematochezia, hemorrhoids, loose stools, melena, nausea, odynophagia, rectal bleeding, tenesmus, vomiting or weight changes Genitourinary Genitourinary: Denies abdominal discomfort, burning urination or itching Musculoskeletal Musculoskeletal: Denies muscle weakness or myalgias Integumentary Integumentary: Denies jaundice Neurologic Neurologic: Denies lack of coordination or weakness Psychiatric Psychiatric: Denies confusion, depression, memory loss, mood swings, paranoia or suicidal ideation Hematologic/Lymphatic Hematologic/Lymphatic: Denies anemia, easy bleeding, easy bruising or lymphadenopathy Allergic/Immunologic Allergic/Immunologic: Denies systems reviewed and no addt'l complaints, except as documented Vital Signs Vital Signs Vital Signs: 11/17/22 08:14 Temperature 97.5 F L Temperature Source Temporal Pulse Rate 84 Respiratory Rate 16 Blood Pressure 110/58 L Blood Pressure Mean 75 Blood Pressure Source Monitor Blood Pressure Position Sitting Blood Pressure Location Left Arm Oxygen Delivery Method Room Air Weight Weight: 120 lb Body Mass Index (BMI) 18.8 Physical Exam Const alert, oriented x3 and no apparent distress General Appearance: cooperative and comfortable Orientation / Consciousness: oriented to person HEENT hearing grossly normal bilaterally Head and Scalp: normal to inspection Face and Sinus: face symmetric Nose: external nose normal Eyes conjunctivae normal General Eye: normal appearance of both eyes Neck full ROM General: normal visual inspection Resp normal respiratory effort Effort and Inspection: able to speak in complete sentences Extremity General Extremity: edema Skin Wounds: wounds noted Neuro oriented x3, CN's II-XII intact bilaterally, moves all extremities and no focal motor deficits Speech: speech normal Gait (Neuro): normal gait Psych mental status grossly normal, thought process normal, cooperative and affect normal Debridement Note Debridement Note Wound debrided: Right leg Type of Debridement: Excisional debridement Anesthesia Used: 4% Lidocaine Solution Depth: Down to and including healthy tissue and in the subcutaneous layer Percentage of wound debrided: 100 Instrument Used: 5mm curette Tissue Removed: Slough and devitalized tissue Severity: Fat Layer Exposed Amount of bleeding with debridement: Mild Bleeding Controlled with: Compression and gauze Patient tolerated procedure: Patient tolerated procedure well Post-Debridement Measurements and Additional Note: Post-Debridement Measurements/Treatment - Nurse 1 - General Ulcer Assessment Start: 11/17/22 08:13 Freq: Status: Active Protocol: JONATAHN Activity Type Activity Date Activity User E-sign Co-sign Detail Recorded Client Recorded Date Recorded By Document 11/17/22 08:14 [facility] [id number] 11/17/22 08:30 [facility] 11/17/22 08:14 - Today's Visit Information Type of service Initial Visit Arrival Mode Ambulatory Transfer Assistance None Accompanied by son Patient Identification Verified (Name & Yes ) Patient Requires Transmission-Based No Precautions Height and Weight Height 5 ft 7 in Weight 120 lb Weight in Pounds 120.0 lbs Weight Measurement Method Stated by Patient Body Mass Index (BMI) 18.8 BMI Classification Normal BSA - Delfino 1.63 Vital Signs Temperature (97.8 F-99.1 F) 97.5 F L Temperature Source Temporal Pulse Rate (60-100) 84 Pulse Location Monitor Respiratory Rate (12-18) 16 Respiratory rate source Observation Oxygen Delivery Method Room Air Blood Pressure (90/60-120/80) 110/58 L Blood Pressure Mean 75 Source Monitor Position Sitting Blood Pressure Location Left Arm History Since Last Visit- (Skip if this is Patient's initial visit) Left Footwear Regular Shoe Right Footwear Regular Shoe Pain Scale: 0-10 Numeric Is Patient Pain Free? Yes Lower Extremity Assessment/ Foot Assessment/ Toe Nail Assessment Right -Posterior Tibial Palpable No -Posterior Tibial Doppler Multiphasic -Dorsalis Pedis Palpable Yes -Dorsalis Pedis Doppler Multiphasic -Extremity Color Hyperpigmented, Hemosiderin -Hair Growth on Legs No -Hair Growth on Toes No -Temperature of Extremity Warm -Other Deformity No -Prior Foot Ulcer No -Charcot Joint No -Prior Amputation No -Thick Yes -Discolored Yes -Deformed No -Improper Length & Hygeine No Left -Posterior Tibial Palpable No -Posterior Tibial Doppler Multiphasic -Dorsalis Pedis Palpable Yes -Dorsalis Pedis Doppler Multiphasic -Extremity Color Hyperpigmented, Hemosiderin -Hair Growth on Legs No -Hair Growth on Toes No -Temperature of Extremity Warm -Other Deformity No -Prior Foot Ulcer No -Charcot Joint No -Prior Amputation No -Thick Yes -Discolored Yes -Deformed No -Improper Length & Hygeine No Neuropathy Assessment Feet - Top Side and Bottom <Entered> (a) (a) 1 - + WC - Nurse 1 - General Ulcer Measurement Start: 11/17/22 08:13 Freq: Status: Active Protocol: Activity Type Activity Date Activity User E-sign Co-sign Detail Recorded Client Recorded Date Recorded By Document 11/17/22 08:14 [facility] [id number] 11/17/22 08:30 [facility] 11/17/22 08:14 Wound Center Nurse 1 #1- RLE LACERATION -Combined with other wound No -Current Size (cm) - Length 4.1 -Current Size (cm) - Width 4 -Current Size (cm) - Depth 0.1 -Total Square Cm 16.4 -Date of Last Picture (Recall this 11/17/22 field) -Photo Taken Yes -Epithelialization None Present -Tunneling No -Undermining/Tunneling No -Circular Undermining No -Exudate Amt Medium -Exudate Type Serosanguineous -Wound Margin Distinct, Outline Attached -Granulation Amt Medium (34-66%) -Granulation Quality Red -Slough/Fibrin Yes -Necrosis Amt Small (1-33%) -Necrotic Tissue Type Eschar -Texture (Genesis-wound Skin Appearance) Assessed, Scarring -Moisture (Genesis-wound Skin Appearance) Assessed -Color (Genesis-wound Skin Appearance) Assessed, Hemosiderin Staining -Temperature (Genesis-wound Skin No Abnormality Appearance) (Pt Warm) -Tenderness on Palpation (Genesis-wound No Skin Appearance) -Ulcer Cleansing Rinsed/ Irrigated with Saline -Foul Odor after Cleansing No -Anesthetic Used 5% Lidocaine Gel Right Calf (cm) 32 Right Ankle (cm) 21.8 Left Calf (cm) 30.8 Left Ankle (cm) 19.7 WC - Nurse 2 - General Ulcer CM Notes Start: 11/17/22 08:13 Freq: Status: Active Protocol: Activity Type Activity Date Activity User E-sign Co-sign Detail Recorded Client Recorded Date Recorded By Document 11/17/22 08:43 MW [id number] 11/17/22 08:52 MW 11/17/22 08:43 Wound Center Nurse 2 #1- RLE LACERATION -Time 08:45 -Correct Patient Yes -Correct Side, Site, Position Yes -Correct Procedure Yes -Procedure Performed Yes -Type of Procedure Debridement -Clinical Debridement Subcutaneous -Tissue Removed Subcutaneous -Post Debridement (cm) - Length 4.5 -Post Debridement (cm) - Width 4.0 -Post Debridement (cm) - Depth 0.1 -Total Square (Post) (cm) 18.00 -Area of Debridement (cm) - Length 4.5 -Area of Debridement (cm) - Width 4.0 -Total Square (Area) (cm) 18.00 -Tunneling No -Undermining/Tunneling No -Circular Undermining No -Wound/Ulcer Outcome Not Healed -Ulcer Cleansing Rinsed/ Irrigated with Saline -Foul Odor after Cleansing No -Bioengineered Tissue No -Bleeding Controlled with Pressure -Treatment Response Procedure Tolerated Well -Offloading No -Debridement - Subq, 1st 20sq cm Yes Pain Scale: 0-10 Numeric Is Patient Pain Free? Yes WC - Nurse 3 - General Ulcer D/C NN Start: 11/17/22 08:13 Freq: Status: Active Protocol: Activity Type Activity Date Activity User E-sign Co-sign Detail Recorded Client Recorded Date Recorded By Document 11/17/22 08:53 MW [id number] 11/17/22 08:55 MW 11/17/22 08:53 Wound Care Center Nurse 3 #1- RLE LACERATION -Ulcer Cleansing Rinsed/ Irrigated with Saline -Foul Odor after Cleansing No -Negative Pressure Wound Therapy N/A -Primary Dressing Applied Aquacel Extra, NonAdherent Contact Layer -Primary Dressing Covered/Secured with Dry Gauze & Roll Gauze, Secured with Tape -Other Covering abd -Aquacel Extra 1 Treatment Response Procedure Tolerated Well Pain Scale: 0-10 Numeric Is Patient Pain Free? Yes Teaching: Wound Center Control Swelling with Leg Elevation -Person Taught Patient,Family -Teaching Method Discussion -Response to teaching Verbalize understanding Compression Wraps & Stockings -Person Taught Patient,Family -Teaching Method Discussion -Response to teaching Verbalize understanding Dressing Your Wound -Person Taught Patient,Family -Teaching Method Discussion -Response to teaching Verbalize understanding WC - Visit Discharge Discharge Condition Stable Ambulatory Status Ambulatory Transportation Private Auto Accompanied by son Medication Reconcilliation completed & No provided to patient/care provider Clinical Summary of Care Provided Yes Charges/Coding Visit Charges Office Visits / Consults: 16032 OV L4 Est Procedures Integumentary [id number]: [id number] Melissa subq tissue 20 sq cm/< Assessment/Plan Assessment/Plan (1) Wound of right lower extremity: CODE(S): S81.801A - Unspecified open wound, right lower leg, initial encounter (2) detention (current) use of systemic steroids: CODE(S): 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 No cultures taken, currently on antibiotics. Aquacel extra, Adaptic and foam dressing. Change daily. She reports difficulty with wearing compression so Jorge wraps recommended for compression. Leg elevation, exercise and compression compliance strongly recommended. Increase protein intake also discussed, she voiced understanding. She was here with her son, their questions were answered and they were advised to let us know if they have any further questions or concerns. Follow-up in a week or sooner if needed. This note was generated with [employer] dictation software. It may contain incorrect words, spelling, and punctuation that were not noted in checking the note before signing.
[2022-11-24 09:00] VITALS: BP 135/71; PULSE 74; RESP 18; TEMP 36.4; BMI 18.8
--- NOTE | 2022-11-24 12:17 | PN.PCM_ITS ---
History of Present Illness Date of Service: 11/24/22 Chief Complaint: Right Leg Wound History of Wound: Ms. Lopez is an 87 yo who was referred to the wound center due to nonhealing right leg wound. Sustained wound about 3 weeks ago. 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 Initially seen in the emergency room and had Steri-Strips placed on it however this did not help. Subsequently seen by her financial retirement plan specialist and was given DuoDERM however, with the application of DuoDERM wound became infected. Discontinued DuoDERM and has been applying Jerod pads and antibiotic ointment. She is also currently on oral antibiotics. Chronic steroid use with history of recurrent wounds thin skin. She feels well otherwise, no chills, nausea, vomiting or change in bowel habits reported. Progress of Wound: No new concerns at this time. Still significant in size but some improvement noted. Objective Data Objective Data Vital Signs: Vital Signs Temp Pulse Resp BP O2 Del Method 97.5 F L 74 18 135/71 H Room Air 11/24/22 09:00 11/24/22 09:00 11/24/22 09:00 11/24/22 09:00 11/24/22 09:00 Oxygen Delivery Method Room Air Weight: 120 lb Body Mass Index (BMI) 18.8 Charges/Coding Procedures Integumentary 111xxx-113xx: 12057 Melissa subq tissue 20 sq cm/< Physical Exam Const alert, oriented x3 and no apparent distress General Appearance: cooperative and comfortable Orientation / Consciousness: oriented to person HEENT hearing grossly normal bilaterally Head and Scalp: normal to inspection Face and Sinus: face symmetric Eyes conjunctivae normal General Eye: normal appearance of both eyes Neck full ROM General: normal visual inspection Resp normal respiratory effort Effort and Inspection: able to speak in complete sentences Extremity General Extremity: edema Skin Wounds: wounds noted Neuro oriented x3, CN's II-XII intact bilaterally, moves all extremities and no focal motor deficits Speech: speech normal Gait (Neuro): normal gait Psych mental status grossly normal, thought process normal, cooperative and affect normal Debridement Note Debridement Note Wound debrided: Right lower extremity Type of Debridement: Excisional debridement Anesthesia Used: 4% Lidocaine Solution Depth: Down to and including healthy tissue and in the subcutaneous layer Percentage of wound debrided: 100 Instrument Used: 5mm curette Tissue Removed: Slough and devitalized tissue Severity: Fat Layer Exposed Amount of bleeding with debridement: Mild Bleeding Controlled with: Pressure Patient tolerated procedure: Patient tolerated procedure well Post-Debridement Measurements and Additional Note: Post-Debridement Measurements/Treatment - Nurse 1 - General Ulcer Assessment Start: 11/17/22 08:13 Freq: Status: Active Protocol: JONATHAN Activity Type Activity Date Activity User E-sign Co-sign Detail Recorded Client Recorded Date Recorded By Document 11/17/22 08:14 [facility] [id number] 11/17/22 08:30 BM Document 11/24/22 09:00 [id number] 11/24/22 09:12 MW 11/17/22 11/24/22 08:14 09:00 WC - Today's Visit Information Type of service Initial Visit Follow-up Visit (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/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 ) Arrival Mode Ambulatory Ambulatory Transfer Assistance None None Accompanied by son son Patient Identification Verified (Name & Yes Yes ) Patient Requires Transmission-Based No No Precautions Safety Precautions NA Height and Weight Height 5 ft 7 in Weight 120 lb Weight in Pounds 120.0 lbs Weight Measurement Method Stated by Patient Body Mass Index (BMI) 18.8 18.8 BMI Classification Normal Normal BSA - Delfino 1.63 Vital Signs Temperature (97.8 F-99.1 F) 97.5 F L 97.5 F L Temperature Source Temporal Temporal Pulse Rate (60-100) 84 74 Pulse Location Monitor Monitor Respiratory Rate (12-18) 16 18 Respiratory rate source Observation Observation Oxygen Delivery Method Room Air Room Air Blood Pressure (90/60-120/80) 110/58 L 135/71 H Blood Pressure Mean (mm Hg) 75 92 Source Monitor Monitor Position Sitting Sitting Blood Pressure Location Left Arm Right Arm History Since Last Visit- (Skip if this is Patient's initial visit) Have you changed medications since your No last visit? Any new allergies or adverse reactions No Had a fall/change in ADL's that may No increase risk of falls Signs or symptoms of abuse and/or No neglect since last visit Have you been in the hospital since your No last visit? Has dressing in place as prescribed Yes Has compression in place as prescribed No Has offloadiing in place as prescribed N/A Experienced any changes in pain level or No management Left Footwear Regular Shoe Regular Shoe Right Footwear Regular Shoe Regular Shoe Pain Scale: 0-10 Numeric Is Patient Pain Free? Yes Yes Lower Extremity Assessment/ Foot Assessment/ Toe Nail Assessment Right -Posterior Tibial Palpable No -Posterior Tibial Doppler Multiphasic -Dorsalis Pedis Palpable Yes -Dorsalis Pedis Doppler Multiphasic -Extremity Color Hyperpigmented, Hemosiderin -Hair Growth on Legs No -Hair Growth on Toes No -Temperature of Extremity Warm -Other Deformity No -Prior Foot Ulcer No -Charcot Joint No -Prior Amputation No -Thick Yes -Discolored Yes -Deformed No -Improper Length & Hygeine No Left -Posterior Tibial Palpable No -Posterior Tibial Doppler Multiphasic -Dorsalis Pedis Palpable Yes -Dorsalis Pedis Doppler Multiphasic -Extremity Color Hyperpigmented, Hemosiderin -Hair Growth on Legs No -Hair Growth on Toes No -Temperature of Extremity Warm -Other Deformity No -Prior Foot Ulcer No -Charcot Joint No -Prior Amputation No -Thick Yes -Discolored Yes -Deformed No -Improper Length & Hygeine No Neuropathy Assessment Feet - Top Side and Bottom <Entered> (a) (a) 1 - + WC - Nurse 1 - General Ulcer Measurement Start: 11/17/22 08:13 Freq: Status: Active Protocol: Activity Type Activity Date Activity User E-sign Co-sign Detail Recorded Client Recorded Date Recorded By Document 11/17/22 08:14 [facility] [id number] 11/17/22 08:30 BM Document 11/24/22 09:00 MW [id number] 11/24/22 09:12 MW 11/17/22 11/24/22 08:14 09:00 Wound Center Nurse 1 #1- RLE LACERATION -Combined with other wound No No -Current Size (cm) - Length 4.1 3.8 -Current Size (cm) - Width 4 3.3 -Current Size (cm) - Depth 0.1 0.2 -Total Square Cm 16.4 12.54 -Date of Last Picture (Recall this 11/17/22 field) -Photo Taken Yes No -Epithelialization None Present None Present -Tunneling No No -Undermining/Tunneling No No -Circular Undermining No No -Exudate Amt Medium Medium -Exudate Type Serosanguineous Serosanguineous -Wound Margin Distinct, Flat & Intact Outline Attached -Granulation Amt Medium (34-66%) Medium (34-66%) -Granulation Quality [place] -Slough/Fibrin Yes Yes -Necrosis Amt Small (1-33%) Small (1-33%) -Necrotic Tissue Type Eschar Adherent Slough -Structure Exposed N/A -Texture (Genesis-wound Skin Appearance) Assessed, Assessed, Scarring Scarring -Moisture (Genesis-wound Skin Appearance) Assessed No Abnormality, Assessed -Color (Genesis-wound Skin Appearance) Assessed, Assessed, Hemosiderin Erythema Staining -Temperature (Genesis-wound Skin No Abnormality No Abnormality Appearance) (Pt Warm) (Pt Warm) -Tenderness on Palpation (Genesis-wound No No Skin Appearance) -Ulcer Cleansing Rinsed/ Soap and Water Irrigated with Saline -Foul Odor after Cleansing No No -Anesthetic Used 5% Lidocaine 5% Lidocaine Gel Gel Lower Limb Edema Present Yes Right Calf (cm) 32 31.5 Right Ankle (cm) 21.8 21.0 Left Calf (cm) 30.8 Left Ankle (cm) 19.7 WC - Nurse 2 - General Ulcer CM Notes Start: 11/17/22 08:13 Freq: Status: Active Protocol: Activity Type Activity Date Activity User E-sign Co-sign Detail Recorded Client Recorded Date Recorded By Document 11/17/22 08:43 MW [id number] 11/17/22 08:52 MW Document 11/24/22 09:26 MW [id number] 11/24/22 09:30 MW 11/17/22 11/24/22 08:43 09:26 Wound Center Nurse 2 #1- RLE LACERATION -Time 08:45 09:26 -Correct Patient Yes Yes -Correct Side, Site, Position Yes Yes -Correct Procedure Yes Yes -Procedure Performed Yes Yes -Type of Procedure Debridement Debridement -Clinical Debridement Subcutaneous Subcutaneous -Tissue Removed Subcutaneous Subcutaneous -Post Debridement (cm) - Length 4.5 3.7 -Post Debridement (cm) - Width 4.0 3.0 -Post Debridement (cm) - Depth 0.1 0.1 -Total Square (Post) (cm) 18.00 11.10 -Area of Debridement (cm) - Length 4.5 3.7 -Area of Debridement (cm) - Width 4.0 3.0 -Total Square (Area) (cm) 18.00 11.10 -Tunneling No No -Undermining/Tunneling No No -Circular Undermining No No -Wound/Ulcer Outcome Not Healed Not Healed -Ulcer Cleansing Rinsed/ Rinsed/ Irrigated with Irrigated with Saline Saline -Foul Odor after Cleansing No No -Bioengineered Tissue No No -Bleeding Controlled with Pressure Pressure -Treatment Response Procedure Procedure Tolerated Well Tolerated Well -Offloading No No -Debridement - Subq, 1st 20sq cm Yes Yes Pain Scale: 0-10 Numeric Is Patient Pain Free? Yes Yes WC - Nurse 3 - General Ulcer D/C NN Start: 11/17/22 08:13 Freq: Status: Active Protocol: Activity Type Activity Date Activity User E-sign Co-sign Detail Recorded Client Recorded Date Recorded By Document 11/17/22 08:53 MW [id number] 11/17/22 08:55 MW Document 11/24/22 09:46 RB [id number] 11/24/22 09:46 RB 11/17/22 11/24/22 08:53 09:46 Wound Care Center Nurse 3 #1- RLE LACERATION -Ulcer Cleansing Rinsed/ Rinsed/ Irrigated with Irrigated with Saline Saline -Foul Odor after Cleansing No -Negative Pressure Wound Therapy N/A -Primary Dressing Applied Aquacel Extra, Aquacel Extra, NonAdherent NonAdherent Contact Layer Contact Layer -Primary Dressing Covered/Secured with Dry Gauze & Dry Gauze,Dry Roll Gauze, Gauze & Roll Secured with Gauze,Secured Tape with Tape -Other Covering abd -Aquacel Extra 1 1 Treatment Response Procedure Procedure Tolerated Well Tolerated Well Pain Scale: 0-10 Numeric Is Patient Pain Free? Yes Yes Teaching: Wound Center Control Swelling with Leg Elevation -Person Taught Patient,Family -Teaching Method Discussion -Response to teaching Verbalize understanding Compression Wraps & Stockings -Person Taught Patient,Family -Teaching Method Discussion -Response to teaching Verbalize understanding Dressing Your Wound -Person Taught Patient,Family -Teaching Method Discussion -Response to teaching Verbalize understanding WC - Visit Discharge Discharge Condition Stable Stable Ambulatory Status Ambulatory Ambulatory Transportation Private Auto Private Auto Accompanied by son Medication Reconcilliation completed & No No provided to patient/care provider Clinical Summary of Care Provided Yes Yes Assessment/Plan Assessment/Plan (1) Wound of right lower extremity: CODE(S): S81.801A - Unspecified open wound, right lower leg, initial encounter (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 Some improvement noted but still significant in size. She is currently on senior care steroids which would delay wound healing. She will benefit from an advanced wound care product/ skin substitute. Application started. For now, continue Aquacel extra, adaptic and ABD. Change daily. Jorge wraps recommended for compression. Leg elevation, exercise and compression compliance strongly recommended. Increase protein intake also discussed, she voiced understanding. She was here with her son, their questions were answered and they were advised to let us know if they have any further questions or concerns. Follow-up in a week or sooner if needed. This note was generated with [employer] dictation software. It may contain incorrect words, spelling, and punctuation that were not noted in checking the note before signing.
[2022-12-01 08:32] VITALS: BP 125/59; PULSE 79; RESP 16; TEMP 35.9; BMI 18.8
--- NOTE | 2022-12-01 08:56 | PN.PCM_ITS ---
History of Present Illness Date of Service: 12/01/22 Chief Complaint: Right Leg Wound History of Wound: Ms. Lopez is an 87 yo who was referred to the wound center due to nonhealing right leg wound. Sustained wound about 3 weeks ago. 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 Initially seen in the emergency room and had Steri-Strips placed on it however this did not help. Subsequently seen by her guest relations associate and was given DuoDERM however, with the application of DuoDERM wound became infected. Discontinued DuoDERM and has been applying Jerod pads and antibiotic ointment. She is also currently on oral antibiotics. Chronic steroid use with history of recurrent wounds thin skin. She feels well otherwise, no chills, nausea, vomiting or change in bowel habits reported. Progress of Wound: No new concerns at this time. Minimal improvement in 1 week. Now approved for Epifix. Objective Data Objective Data Vital Signs: Vital Signs Temp Pulse Resp BP O2 Del Method 96.7 F L 79 16 125/59 H Room Air 12/01/22 08:32 12/01/22 08:32 12/01/22 08:32 12/01/22 08:32 11/24/22 09:00 Oxygen Delivery Method Room Air Weight: 120 lb Body Mass Index (BMI) 18.8 Charges/Coding Procedures Integumentary 150xxx-152xx: 55008 Skin sub graft trnk/arm/leg Physical Exam Const alert, oriented x3 and no apparent distress General Appearance: cooperative and comfortable Orientation / Consciousness: oriented to person HEENT hearing grossly normal bilaterally Head and Scalp: normal to inspection Eyes conjunctivae normal General Eye: normal appearance of both eyes Neck full ROM General: normal visual inspection Resp normal respiratory effort Effort and Inspection: able to speak in complete sentences Extremity General Extremity: edema Skin Wounds: wounds noted Neuro oriented x3, CN's II-XII intact bilaterally, moves all extremities and no focal motor deficits Speech: speech normal Gait (Neuro): normal gait Psych mental status grossly normal, thought process normal, cooperative and affect normal Debridement Note Debridement Note Wound debrided: Right lower extremity Type of Debridement: Excisional debridement Anesthesia Used: 5% Lidocaine Gel Depth: Down to and including healthy tissue and in the subcutaneous layer Percentage of wound debrided: 100 Instrument Used: 5mm curette Tissue Removed: Slough and devitalized tissue Severity: Fat Layer Exposed Amount of bleeding with debridement: Mild Bleeding Controlled with: Pressure Patient tolerated procedure: Patient tolerated procedure well Post-Debridement Measurements and Additional Note: Post-Debridement Measurements/Treatment - Nurse 1 - General Ulcer Assessment Start: 11/17/22 08:13 Freq: Status: Active Protocol: JONATHAN Activity Type Activity Date Activity User E-sign Co-sign Detail Recorded Client Recorded Date Recorded By Document 11/17/22 08:14 BMF [id number] 11/17/22 08:30 BMF Document 11/24/22 09:00 MW [id number] 11/24/22 09:12 MW Document 12/01/22 08:32 JF [id number] 12/01/22 08:38 JF 11/17/22 11/24/22 12/01/22 08:14 09:00 08:32 - Today's Visit Information Type of service Initial Visit Follow-up Visit Follow-up Visit (Physician/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 (Physician/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 ) ) Arrival Mode Ambulatory Ambulatory Ambulatory Transfer Assistance None None Accompanied by son son Say--son Patient Identification Verified (Name & Yes Yes Yes ) Patient Requires Transmission-Based No No No Precautions Safety Precautions NA Height and Weight Height 5 ft 7 in Weight 120 lb Weight in Pounds 120.0 lbs Weight Measurement Method Stated by Patient Body Mass Index (BMI) 18.8 18.8 18.8 BMI Classification Normal Normal Normal BSA - Delfino 1.63 Vital Signs Temperature (97.8 F-99.1 F) 97.5 F L 97.5 F L 96.7 F L Temperature Source Temporal Temporal Temporal Pulse Rate (60-100) 84 74 79 Pulse Location Monitor Monitor Monitor Respiratory Rate (12-18) 16 18 16 Respiratory rate source Observation Observation Observation Oxygen Delivery Method Room Air Room Air Blood Pressure (90/60-120/80) 110/58 L 135/71 H 125/59 H Blood Pressure Mean (mm Hg) 75 92 81 Source Monitor Monitor Monitor Position Sitting Sitting Semi-Fowlers Blood Pressure Location Left Arm Right Arm Right Arm History Since Last Visit- (Skip if this is Patient's initial visit) Have you changed medications since your No No last visit? Any new allergies or adverse reactions No No Had a fall/change in ADL's that may No No increase risk of falls Signs or symptoms of abuse and/or No No neglect since last visit Have you been in the hospital since your No No last visit? Has dressing in place as prescribed Yes Yes Has compression in place as prescribed No Yes Has offloadiing in place as prescribed N/A N/A Experienced any changes in pain level or No No management Left Footwear Regular Shoe Regular Shoe Regular Shoe Right Footwear Regular Shoe Regular Shoe Regular Shoe Pain Scale: 0-10 Numeric Is Patient Pain Free? Yes Yes Yes Lower Extremity Assessment/ Foot Assessment/ Toe Nail Assessment Right -Posterior Tibial Palpable No -Posterior Tibial Doppler Multiphasic -Dorsalis Pedis Palpable Yes -Dorsalis Pedis Doppler Multiphasic -Extremity Color Hyperpigmented, Hemosiderin -Hair Growth on Legs No -Hair Growth on Toes No -Temperature of Extremity Warm -Other Deformity No -Prior Foot Ulcer No -Charcot Joint No -Prior Amputation No -Thick Yes -Discolored Yes -Deformed No -Improper Length & Hygeine No Left -Posterior Tibial Palpable No -Posterior Tibial Doppler Multiphasic -Dorsalis Pedis Palpable Yes -Dorsalis Pedis Doppler Multiphasic -Extremity Color Hyperpigmented, Hemosiderin -Hair Growth on Legs No -Hair Growth on Toes No -Temperature of Extremity Warm -Other Deformity No -Prior Foot Ulcer No -Charcot Joint No -Prior Amputation No -Thick Yes -Discolored Yes -Deformed No -Improper Length & Hygeine No Neuropathy Assessment Feet - Top Side and Bottom <Entered> (a) (a) 1 - + WC - Nurse 1 - General Ulcer Measurement Start: 11/17/22 08:13 Freq: Status: Active Protocol: Activity Type Activity Date Activity User E-sign Co-sign Detail Recorded Client Recorded Date Recorded By Document 11/17/22 08:14 BM [id number] 11/17/22 08:30 BM Document 11/24/22 09:00 MW [id number] 11/24/22 09:12 MW Document 12/01/22 08:32 [id number] 12/01/22 08:38 JF 11/17/22 11/24/22 12/01/22 08:14 09:00 08:32 Wound Center Nurse 1 #1- RLE LACERATION -Combined with other wound No No No -Current Size (cm) - Length 4.1 3.8 3.7 -Current Size (cm) - Width 4 3.3 3.0 -Current Size (cm) - Depth 0.1 0.2 0.1 -Total Square Cm 16.4 12.54 11.10 -Date of Last Picture (Recall this 11/17/22 field) -Photo Taken Yes No No -Epithelialization None Present None Present Small 1-33% -Tunneling No No No -Undermining/Tunneling No No No -Circular Undermining No No No -Exudate Amt Medium Medium Medium -Exudate Type Serosanguineous Serosanguineous Serosanguineous -Wound Margin Distinct, Flat & Intact Flat & Intact Outline Attached -Granulation Amt Medium (34-66%) Medium (34-66%) Medium (34-66%) -Granulation Quality [place] -Slough/Fibrin Yes Yes Yes -Necrosis Amt Small (1-33%) Small (1-33%) Medium (34-66%) -Necrotic Tissue Type Eschar Adherent Slough Adherent Slough -Structure Exposed N/A N/A -Texture (Genesis-wound Skin Appearance) Assessed, Assessed, Assessed, Scarring Scarring Localized Edema -Moisture (Genesis-wound Skin Appearance) Assessed No Abnormality, Assessed,Dry/ Assessed Scaly -Color (Genesis-wound Skin Appearance) Assessed, Assessed, Not Assessed Hemosiderin Erythema Staining -Temperature (Genesis-wound Skin No Abnormality No Abnormality No Abnormality Appearance) (Pt Warm) (Pt Warm) (Pt Warm) -Tenderness on Palpation (Genesis-wound No No No Skin Appearance) -Ulcer Cleansing Rinsed/ Soap and Water Rinsed/ Irrigated with Irrigated with Saline Saline -Foul Odor after Cleansing No No No -Anesthetic Used 5% Lidocaine 5% Lidocaine 5% Lidocaine Gel Gel Gel Lower Limb Edema Present Yes Yes Right Calf (cm) 32 31.5 31.3 Right Ankle (cm) 21.8 21.0 21.6 Left Calf (cm) 30.8 Left Ankle (cm) 19.7 WC - Nurse 2 - General Ulcer CM Notes Start: 11/17/22 08:13 Freq: Status: Active Protocol: Activity Type Activity Date Activity User E-sign Co-sign Detail Recorded Client Recorded Date Recorded By Document 11/17/22 08:43 MW [id number] 11/17/22 08:52 MW Document 11/24/22 09:26 MW [id number] 11/24/22 09:30 MW Document 12/01/22 08:46 JF [id number] 12/01/22 08:52 JF 11/17/22 11/24/22 12/01/22 08:43 09:26 08:46 Wound Center Nurse 2 #1- RLE LACERATION -Time 08:45 09:26 08:51 -Correct Patient Yes Yes Yes -Correct Side, Site, Position Yes Yes Yes -Correct Procedure Yes Yes Yes -Procedure Performed Yes Yes Yes -Type of Procedure Debridement Debridement Debridement -Clinical Debridement Subcutaneous Subcutaneous Subcutaneous -Tissue Removed Subcutaneous Subcutaneous Subcutaneous -Post Debridement (cm) - Length 4.5 3.7 3.5 -Post Debridement (cm) - Width 4.0 3.0 3.0 -Post Debridement (cm) - Depth 0.1 0.1 0.1 -Total Square (Post) (cm) 18.00 11.10 10.50 -Area of Debridement (cm) - Length 4.5 3.7 3.5 -Area of Debridement (cm) - Width 4.0 3.0 3.0 -Total Square (Area) (cm) 18.00 11.10 10.50 -Tunneling No No No -Undermining/Tunneling No No No -Circular Undermining No No No -Wound/Ulcer Outcome Not Healed Not Healed Not Healed -Ulcer Cleansing Rinsed/ Rinsed/ Rinsed/ Irrigated with Irrigated with Irrigated with Saline Saline Saline -Foul Odor after Cleansing No No No -Bioengineered Tissue No No Yes -Type of Bioengineered Tissue Epifix Mesh -Expiration Date 08/17/27 -Product Lot Number [id number] -Percent Used 100 -Lot number of Saline Used [id number] -Bleeding Controlled with Pressure Pressure Pressure -Treatment Response Procedure Procedure Procedure Tolerated Well Tolerated Well Tolerated Well -Offloading No No No -Debridement - Subq, 1st 20sq cm Yes Yes No -Apply Skin Sub - 1st 25 sq cm - Legs 1 -Epifix Mesh (per sq cm) 11 Pain Scale: 0-10 Numeric Is Patient Pain Free? Yes Yes Yes WC - Nurse 3 - General Ulcer D/C NN Start: 11/17/22 08:13 Freq: Status: Active Protocol: Activity Type Activity Date Activity User E-sign Co-sign Detail Recorded Client Recorded Date Recorded By Document 11/17/22 08:53 MW [id number] 11/17/22 08:55 MW Document 11/24/22 09:46 RB [id number] 11/24/22 09:46 RB 11/17/22 11/24/22 08:53 09:46 Wound Care Center Nurse 3 #1- RLE LACERATION -Ulcer Cleansing Rinsed/ Rinsed/ Irrigated with Irrigated with Saline Saline -Foul Odor after Cleansing No -Negative Pressure Wound Therapy N/A -Primary Dressing Applied Aquacel Extra, Aquacel Extra, NonAdherent NonAdherent Contact Layer Contact Layer -Primary Dressing Covered/Secured with Dry Gauze & Dry Gauze,Dry Roll Gauze, Gauze & Roll Secured with Gauze,Secured Tape with Tape -Other Covering abd -Aquacel Extra 1 1 Treatment Response Procedure Procedure Tolerated Well Tolerated Well Pain Scale: 0-10 Numeric Is Patient Pain Free? Yes Yes Teaching: Wound Center Control Swelling with Leg Elevation -Person Taught Patient,Family -Teaching Method Discussion -Response to teaching Verbalize understanding Compression Wraps & Stockings -Person Taught Patient,Family -Teaching Method Discussion -Response to teaching Verbalize understanding Dressing Your Wound -Person Taught Patient,Family -Teaching Method Discussion -Response to teaching Verbalize understanding WC - Visit Discharge Discharge Condition Stable Stable Ambulatory Status Ambulatory Ambulatory Transportation Private Auto Private Auto Accompanied by son Medication Reconcilliation completed & No No provided to patient/care provider Clinical Summary of Care Provided Yes Yes Assessment/Plan Assessment/Plan (1) Wound of right lower extremity: CODE(S): S81.801A - Unspecified open wound, right lower leg, initial encounter (2) senior care (current) use of systemic steroids: CODE(S): Z79.52 - terminal make up operator (current) use of systemic steroids (3) terminal make up operator current use of anticoagulant: CODE(S): Z79.01 - terminal make up operator (current) use of anticoagulants PLAN: Plan Debridement done as documented above, procedure was well-tolerated. Minimal improvement noted since last week. Now approved for EpiFix. Initial application of EpiFix done using 100% of product, moistened with saline and covered with Adaptic touch which was secured with Steri-Strips. Keep covered always, may change outer dressing if soaked. Jorge wraps for edema management. Leg elevation, exercise and compression compliance strongly recommended. Increase protein intake also discussed, she voiced understanding. She was here with her son, their questions were answered and they were advised to let us know if they have any further questions or concerns. Follow-up in a week or sooner if needed. This note was generated with [employer] dictation software. It may contain incorrect words, spelling, and punctuation that were not noted in checking the note before signing.
[2022-12-08 08:51] VITALS: BP 127/55; PULSE 73; RESP 16; TEMP 36.4; BMI 18.8
--- NOTE | 2022-12-08 10:47 | PN.PCM_ITS ---
History of Present Illness Date of Service: 12/08/22 Chief Complaint: Right Leg Wound History of Wound: Ms. Lopez is an 87 yo who was referred to the wound center due to nonhealing right leg wound. Sustained wound about 3 weeks ago. Vacuum filter cleaner fell on her leg while she was trying to pull on a coat. Initially seen in the emergency room and had Steri-Strips placed on it however this did not help. 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 Discontinued DuoDERM and has been applying Jerod pads and antibiotic ointment. She is also currently on oral antibiotics. Chronic steroid use with history of recurrent wounds thin skin. She feels well otherwise, no chills, nausea, vomiting or change in bowel habits reported. Progress of Wound: Improving, no new concerns at this time. Has had 1 application of EpiFix. Objective Data Objective Data Vital Signs: Vital Signs Temp Pulse Resp BP O2 Del Method 97.6 F L 73 16 127/55 H Room Air 12/08/22 08:51 12/08/22 08:51 12/08/22 08:51 12/08/22 08:51 12/08/22 08:51 Oxygen Delivery Method Room Air Weight: 120 lb Body Mass Index (BMI) 18.8 Charges/Coding Procedures Integumentary 150xxx-152xx: [id number] Skin sub graft trnk/arm/leg Physical Exam Const alert, oriented x3 and no apparent distress General Appearance: cooperative and comfortable Orientation / Consciousness: oriented to person HEENT hearing grossly normal bilaterally Head and Scalp: normal to inspection Eyes conjunctivae normal General Eye: normal appearance of both eyes Neck full ROM General: normal visual inspection Resp normal respiratory effort Effort and Inspection: able to speak in complete sentences Extremity General Extremity: edema Skin Wounds: wounds noted Neuro oriented x3, CN's II-XII intact bilaterally, moves all extremities and no focal motor deficits Speech: speech normal Gait (Neuro): normal gait Psych mental status grossly normal, thought process normal, cooperative and affect normal Debridement Note Debridement Note Wound debrided: Right lower extremity Type of Debridement: Excisional debridement Anesthesia Used: 5% Lidocaine Gel Depth: Down to and including healthy tissue and in the subcutaneous layer Percentage of wound debrided: 100 Instrument Used: 5mm curette Tissue Removed: Slough and devitalized tissue Severity: Fat Layer Exposed Amount of bleeding with debridement: Mild Bleeding Controlled with: Pressure Patient tolerated procedure: Patient tolerated procedure well Post-Debridement Measurements and Additional Note: Post-Debridement Measurements/Treatment WC - Nurse 1 - General Ulcer Assessment Start: 11/17/22 08:13 Freq: Status: Active Protocol: JONATHAN Activity Type Activity Date Activity User E-sign Co-sign Detail Recorded Client Recorded Date Recorded By Document 11/17/22 08:14 BMF [id number] 11/17/22 08:30 BMF Document 11/24/22 09:00 MW [id number] 11/24/22 09:12 MW Document 12/01/22 08:32 JF [id number] 12/01/22 08:38 JF Document 12/08/22 08:51 BMF [id number] 12/08/22 08:58 BMF 11/17/22 11/24/22 12/01/22 08:14 09:00 08:32 WC - Today's Visit Information Type of service Initial Visit Follow-up Visit Follow-up Visit (Physician/ENFORCEMENT MANAGER (Physician/ENFORCEMENT MANAGER ) ) Arrival Mode Ambulatory Ambulatory Ambulatory Transfer Assistance None None Accompanied by son son Say--son Patient Identification Verified (Name & Yes Yes Yes ) Patient Requires Transmission-Based No No No Precautions Safety Precautions NA Height and Weight Height 5 ft 7 in Weight 120 lb Weight in Pounds 120.0 lbs Weight Measurement Method Stated by Patient Body Mass Index (BMI) 18.8 18.8 18.8 BMI Classification Normal Normal Normal BSA - Delfino 1.63 Vital Signs Temperature (97.8 F-99.1 F) 97.5 F L 97.5 F L 96.7 F L Temperature Source Temporal Temporal Temporal Pulse Rate (60-100) 84 74 79 Pulse Location Monitor Monitor Monitor Respiratory Rate (12-18) 16 18 16 Respiratory rate source Observation Observation Observation Oxygen Delivery Method Room Air Room Air Blood Pressure (90/60-120/80) 110/58 L 135/71 H 125/59 H Blood Pressure Mean (mm Hg) 75 92 81 Source Monitor Monitor Monitor Position Sitting Sitting Semi-Fowlers Blood Pressure Location Left Arm Right Arm Right Arm History Since Last Visit- (Skip if this is Patient's initial visit) Have you changed medications since your No No last visit? Any new allergies or adverse reactions No No Had a fall/change in ADL's that may No No increase risk of falls Signs or symptoms of abuse and/or No No neglect since last visit Have you been in the hospital since your No No last visit? Has dressing in place as prescribed Yes Yes Has compression in place as prescribed No Yes Has offloadiing in place as prescribed N/A N/A Experienced any changes in pain level or No No management Left Footwear Regular Shoe Regular Shoe Regular Shoe Right Footwear Regular Shoe Regular Shoe Regular Shoe Pain Scale: 0-10 Numeric Is Patient Pain Free? Yes Yes Yes Lower Extremity Assessment/ Foot Assessment/ Toe Nail Assessment Right -Posterior Tibial Palpable No -Posterior Tibial Doppler Multiphasic -Dorsalis Pedis Palpable Yes -Dorsalis Pedis Doppler Multiphasic -Extremity Color Hyperpigmented, Hemosiderin -Hair Growth on Legs No -Hair Growth on Toes No -Temperature of Extremity Warm -Other Deformity No -Prior Foot Ulcer No -Charcot Joint No -Prior Amputation No -Thick Yes -Discolored Yes -Deformed No -Improper Length & Hygeine No Left -Posterior Tibial Palpable No -Posterior Tibial Doppler Multiphasic -Dorsalis Pedis Palpable Yes -Dorsalis Pedis Doppler Multiphasic -Extremity Color Hyperpigmented, Hemosiderin -Hair Growth on Legs No -Hair Growth on Toes No -Temperature of Extremity Warm -Other Deformity No -Prior Foot Ulcer No -Charcot Joint No -Prior Amputation No -Thick Yes -Discolored Yes -Deformed No -Improper Length & Hygeine No Neuropathy Assessment Feet - Top Side and Bottom <Entered> (a) 12/08/22 08:51 WC - Today's Visit Information Type of service Follow-up Visit (Physician/ENFORCEMENT MANAGER ) Arrival Mode Ambulatory Transfer Assistance None Accompanied by Patient Identification Verified (Name & Yes ) Patient Requires Transmission-Based Precautions Safety Precautions Height and Weight Height Weight Weight in Pounds Weight Measurement Method Body Mass Index (BMI) 18.8 BMI Classification Normal BSA - Delfino Vital Signs Temperature (97.8 F-99.1 F) 97.6 F L Temperature Source Temporal Pulse Rate (60-100) 73 Pulse Location Monitor Respiratory Rate (12-18) 16 Respiratory rate source Observation Oxygen Delivery Method Room Air Blood Pressure (90/60-120/80) 127/55 H Blood Pressure Mean (mm Hg) 79 Source Monitor Position Sitting Blood Pressure Location Left Arm History Since Last Visit- (Skip if this is Patient's initial visit) Have you changed medications since your No last visit? Any new allergies or adverse reactions No Had a fall/change in ADL's that may No increase risk of falls Signs or symptoms of abuse and/or No neglect since last visit Have you been in the hospital since your No last visit? Has dressing in place as prescribed Yes Has compression in place as prescribed Yes Has offloadiing in place as prescribed N/A Experienced any changes in pain level or No management Left Footwear Regular Shoe Right Footwear Regular Shoe Pain Scale: 0-10 Numeric Is Patient Pain Free? Yes Lower Extremity Assessment/ Foot Assessment/ Toe Nail Assessment Right -Posterior Tibial Palpable -Posterior Tibial Doppler -Dorsalis Pedis Palpable -Dorsalis Pedis Doppler -Extremity Color -Hair Growth on Legs -Hair Growth on Toes -Temperature of Extremity -Other Deformity -Prior Foot Ulcer -Charcot Joint -Prior Amputation -Thick -Discolored -Deformed -Improper Length & Hygeine Left -Posterior Tibial Palpable -Posterior Tibial Doppler -Dorsalis Pedis Palpable -Dorsalis Pedis Doppler -Extremity Color -Hair Growth on Legs -Hair Growth on Toes -Temperature of Extremity -Other Deformity -Prior Foot Ulcer -Charcot Joint -Prior Amputation -Thick -Discolored -Deformed -Improper Length & Hygeine Neuropathy Assessment Feet - Top Side and Bottom (a) 1 - + WC - Nurse 1 - General Ulcer Measurement Start: 11/17/22 08:13 Freq: Status: Active Protocol: Activity Type Activity Date Activity User E-sign Co-sign Detail Recorded Client Recorded Date Recorded By Document 11/17/22 08:14 BM [id number] 11/17/22 08:30 BMF Document 11/24/22 09:00 MW [id number] 11/24/22 09:12 MW Document 12/01/22 08:32 JF [id number] 12/01/22 08:38 JF Document 12/08/22 08:51 BM [id number] 12/08/22 08:58 BMF 11/17/22 11/24/22 12/01/22 08:14 09:00 08:32 Wound Center Nurse 1 #1- RLE LACERATION -Combined with other wound No No No -Current Size (cm) - Length 4.1 3.8 3.7 -Current Size (cm) - Width 4 3.3 3.0 -Current Size (cm) - Depth 0.1 0.2 0.1 -Total Square Cm 16.4 12.54 11.10 -Date of Last Picture (Recall this 11/17/22 field) -Photo Taken Yes No No -Epithelialization None Present None Present Small 1-33% -Tunneling No No No -Undermining/Tunneling No No No -Circular Undermining No No No -Exudate Amt Medium Medium Medium -Exudate Type Serosanguineous Serosanguineous Serosanguineous -Wound Margin Distinct, Flat & Intact Flat & Intact Outline Attached -Granulation Amt Medium (34-66%) Medium (34-66%) Medium (34-66%) -Granulation Quality Red [place] -Slough/Fibrin Yes Yes Yes -Necrosis Amt Small (1-33%) Small (1-33%) Medium (34-66%) -Necrotic Tissue Type Eschar Adherent Slough Adherent Slough -Structure Exposed N/A N/A -Texture (Genesis-wound Skin Appearance) Assessed, Assessed, Assessed, Scarring Scarring Localized Edema -Moisture (Genesis-wound Skin Appearance) Assessed No Abnormality, Assessed,Dry/ Assessed Scaly -Color (Genesis-wound Skin Appearance) Assessed, Assessed, Not Assessed Hemosiderin Erythema Staining -Temperature (Genesis-wound Skin No Abnormality No Abnormality No Abnormality Appearance) (Pt Warm) (Pt Warm) (Pt Warm) -Tenderness on Palpation (Genesis-wound No No No Skin Appearance) -Ulcer Cleansing Rinsed/ Soap and Water Rinsed/ Irrigated with Irrigated with Saline Saline -Foul Odor after Cleansing No No No -Anesthetic Used 5% Lidocaine 5% Lidocaine 5% Lidocaine Gel Gel Gel Lower Limb Edema Present Yes Yes Right Calf (cm) 32 31.5 31.3 Right Ankle (cm) 21.8 21.0 21.6 Left Calf (cm) 30.8 Left Ankle (cm) 19.7 12/08/22 08:51 Wound Center Nurse 1 #1- RLE LACERATION -Combined with other wound No -Current Size (cm) - Length 3.2 -Current Size (cm) - Width 2.8 -Current Size (cm) - Depth 0.1 -Total Square Cm 8.96 -Date of Last Picture (Recall this 12/08/22 field) -Photo Taken Yes -Epithelialization None Present -Tunneling No -Undermining/Tunneling No -Circular Undermining No -Exudate Amt Medium -Exudate Type Serosanguineous -Wound Margin Distinct, Outline Attached -Granulation Amt Small (1-33%) -Granulation Quality Red -Slough/Fibrin Yes -Necrosis Amt Large (67-100%) -Necrotic Tissue Type Adherent Slough -Structure Exposed -Texture (Genesis-wound Skin Appearance) Assessed, Scarring -Moisture (Genesis-wound Skin Appearance) Assessed,Dry/ Scaly -Color (Genesis-wound Skin Appearance) Assessed -Temperature (Genesis-wound Skin No Abnormality Appearance) (Pt Warm) -Tenderness on Palpation (Genesis-wound Yes Skin Appearance) -Ulcer Cleansing Soap and Water -Foul Odor after Cleansing No -Anesthetic Used 5% Lidocaine Gel Lower Limb Edema Present Right Calf (cm) Right Ankle (cm) Left Calf (cm) Left Ankle (cm) WC - Nurse 2 - General Ulcer CM Notes Start: 11/17/22 08:13 Freq: Status: Active Protocol: Activity Type Activity Date Activity User E-sign Co-sign Detail Recorded Client Recorded Date Recorded By Document 11/17/22 08:43 MW [id number] 11/17/22 08:52 MW Document 11/24/22 09:26 MW [id number] 11/24/22 09:30 MW Document 12/01/22 08:46 [id number] 12/01/22 08:52 Document 12/08/22 09:15 MW [id number] 12/08/22 09:24 MW 11/17/22 11/24/22 12/01/22 08:43 09:26 08:46 Wound Center Nurse 2 #1- RLE LACERATION -Time 08:45 09:26 08:51 -Correct Patient Yes Yes Yes -Correct Side, Site, Position Yes Yes Yes -Correct Procedure Yes Yes Yes -Procedure Performed Yes Yes Yes -Type of Procedure Debridement Debridement Debridement -Clinical Debridement Subcutaneous Subcutaneous Subcutaneous -Tissue Removed Subcutaneous Subcutaneous Subcutaneous -Post Debridement (cm) - Length 4.5 3.7 3.5 -Post Debridement (cm) - Width 4.0 3.0 3.0 -Post Debridement (cm) - Depth 0.1 0.1 0.1 -Total Square (Post) (cm) 18.00 11.10 10.50 -Area of Debridement (cm) - Length 4.5 3.7 3.5 -Area of Debridement (cm) - Width 4.0 3.0 3.0 -Total Square (Area) (cm) 18.00 11.10 10.50 -Tunneling No No No -Undermining/Tunneling No No No -Circular Undermining No No No -Wound/Ulcer Outcome Not Healed Not Healed Not Healed -Ulcer Cleansing Rinsed/ Rinsed/ Rinsed/ Irrigated with Irrigated with Irrigated with Saline Saline Saline -Foul Odor after Cleansing No No No -Bioengineered Tissue No No Yes -Type of Bioengineered Tissue Epifix Mesh -Expiration Date 08/17/27 -Product Lot Number [id number] -Percent Used 100 -Lot number of Saline Used [id number] -Bleeding Controlled with Pressure Pressure Pressure -Treatment Response Procedure Procedure Procedure Tolerated Well Tolerated Well Tolerated Well -Offloading No No No -Debridement - Subq, 1st 20sq cm Yes Yes No -Apply Skin Sub - 1st 25 sq cm - Legs 1 -Epifix Mesh (per sq cm) 11 Pain Scale: 0-10 Numeric Is Patient Pain Free? Yes Yes Yes 12/08/22 09:15 Wound Center Nurse 2 #1- RLE LACERATION -Time 09:16 -Correct Patient Yes -Correct Side, Site, Position Yes -Correct Procedure Yes -Procedure Performed Yes -Type of Procedure Debridement -Clinical Debridement Subcutaneous -Tissue Removed Subcutaneous -Post Debridement (cm) - Length 3.0 -Post Debridement (cm) - Width 2.5 -Post Debridement (cm) - Depth 0.1 -Total Square (Post) (cm) 7.50 -Area of Debridement (cm) - Length 3.0 -Area of Debridement (cm) - Width 2.5 -Total Square (Area) (cm) 7.50 -Tunneling No -Undermining/Tunneling No -Circular Undermining No -Wound/Ulcer Outcome Not Healed -Ulcer Cleansing Rinsed/ Irrigated with Saline -Foul Odor after Cleansing No -Bioengineered Tissue Yes -Type of Bioengineered Tissue Epifix Mesh -Expiration Date 09/15/27 -Product Lot Number [id number] -Percent Used 100 -Lot number of Saline Used [id number] -Bleeding Controlled with Pressure -Treatment Response Procedure Tolerated Well -Offloading No -Debridement - Subq, 1st 20sq cm No -Apply Skin Sub - 1st 25 sq cm - Legs 1 -Epifix Mesh (per sq cm) 11 Pain Scale: 0-10 Numeric Is Patient Pain Free? Yes WC - Nurse 3 - General Ulcer D/C NN Start: 11/17/22 08:13 Freq: Status: Active Protocol: Activity Type Activity Date Activity User E-sign Co-sign Detail Recorded Client Recorded Date Recorded By Document 11/17/22 08:53 MW [id number] 11/17/22 08:55 MW Document 11/24/22 09:46 RB [id number] 11/24/22 09:46 RB Document 12/01/22 09:00 JF [id number] 12/01/22 09:02 JF Document 12/08/22 09:29 DL [id number] 12/08/22 09:32 DL 11/17/22 11/24/22 12/01/22 08:53 09:46 09:00 Wound Care Center Nurse 3 #1- RLE LACERATION -Ulcer Cleansing Rinsed/ Rinsed/ Rinsed/ Irrigated with Irrigated with Irrigated with Saline Saline Saline -Foul Odor after Cleansing No No -Negative Pressure Wound Therapy N/A -Primary Dressing Applied Aquacel Extra, Aquacel Extra, Mepilex Border NonAdherent NonAdherent Contact Layer Contact Layer -Other Dressing -Primary Dressing Covered/Secured with Dry Gauze & Dry Gauze,Dry Dry Gauze Roll Gauze, Gauze & Roll Secured with Gauze,Secured Tape with Tape -Other Covering abd -Aquacel Extra 1 1 -Mepilex Border 1 Treatment Response Procedure Procedure Tolerated Well Tolerated Well Pain Scale: 0-10 Numeric Is Patient Pain Free? Yes Yes Yes Teaching: Wound Center Control Swelling with Leg Elevation -Person Taught Patient,Family -Teaching Method Discussion -Response to teaching Verbalize understanding Compression Wraps & Stockings -Person Taught Patient,Family -Teaching Method Discussion -Response to teaching Verbalize understanding Dressing Your Wound -Person Taught Patient,Family -Teaching Method Discussion -Response to teaching Verbalize understanding WC - Visit Discharge Discharge Condition Stable Stable Stable Ambulatory Status Ambulatory Ambulatory Ambulatory, Wheelchair Transportation Private Auto Private Auto Private Auto Accompanied by son son Medication Reconcilliation completed & No No Yes provided to patient/care provider Clinical Summary of Care Provided Yes Yes Yes 12/08/22 09:29 Wound Care Center Nurse 3 #1- RLE LACERATION -Ulcer Cleansing -Foul Odor after Cleansing No -Negative Pressure Wound Therapy -Primary Dressing Applied Mepilex Border -Other Dressing Epimesh -Primary Dressing Covered/Secured with Dry Gauze -Other Covering -Aquacel Extra -Mepilex Border 1 Treatment Response Pain Scale: 0-10 Numeric Is Patient Pain Free? Yes Teaching: Wound Center Control Swelling with Leg Elevation -Person Taught -Teaching Method -Response to teaching Compression Wraps & Stockings -Person Taught -Teaching Method -Response to teaching Dressing Your Wound -Person Taught -Teaching Method -Response to teaching WC - Visit Discharge Discharge Condition Stable Ambulatory Status Ambulatory Transportation Private Auto Accompanied by Medication Reconcilliation completed & provided to patient/care provider Clinical Summary of Care Provided Assessment/Plan Assessment/Plan (1) Wound of right lower extremity: CODE(S): S81.801A - Unspecified open wound, right lower leg, initial encounter (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 Significant improvement noted in 1 week. Second application of EpiFix done using 100% of product, moistened with saline and covered with Adaptic touch which was secured with Steri-Strips. Keep covered always, may change outer dressing if soaked. Jorge wraps for edema management. Leg elevation, exercise and compression compliance strongly recommended. Increase protein intake also discussed, she voiced understanding. Her questions were answered and she was advised to call if she has any further questions or concerns. This note was generated with [employer] software. It may contain incorrect words, spelling, and punctuation that were not noted in checking the note before signing.
== END 2022-12-14 23:59 | disposition home or self-care (01) ==
LOC: WC 08:45
PROVIDERS: PCP Internal Medicine; Referring Provider Internal Medicine; Visit Provider Internal Medicine
DX: S81.811A Laceration without foreign body, right lower leg, initial encounter (principal); I48.0 Paroxysmal atrial fibrillation; G62.9 Polyneuropathy, unspecified; I10 Essential (primary) hypertension; Z79.01 Long term (current) use of anticoagulants; M79.7 Fibromyalgia; Z79.52 Long term (current) use of systemic steroids
CPT/HCPCS: 11042; 15271; 99213; Q4186; G0463

== ENCOUNTER 2023-01-12 13:00 | Outpatient (RCR) | payer MEDICARE, SELFPAY ==
[2022-12-15 00:42] VITALS: BP 127/55; PULSE 73; RESP 16; TEMP 36.4; BMI 18.8
[2022-12-15 08:30] VITALS: BP 154/64; PULSE 98; RESP 18; TEMP 35.9; BMI 18.8
--- NOTE | 2022-12-15 08:56 | PCM.WC.PN ---
History of Present Illness Date of Service: 12/15/22 Chief Complaint: Right Leg Wound History of Wound: Ms. Lopez is an 87 yo who was referred to the wound center due to nonhealing right leg wound. Sustained wound about 3 weeks ago. Vacuum floor cleaner fell on her leg while she was trying to pull on a coat. Initially seen in the emergency room and had Steri-Strips placed on it however this did not help. Subsequently seen by her wallpaper embosser helper and was given DuoDERM however, with the application of DuoDERM wound became infected. Discontinued DuoDERM and has been applying Jerod pads and antibiotic ointment. She is also currently on oral antibiotics. Chronic steroid use with history of recurrent wounds thin skin. She feels well otherwise, no chills, nausea, vomiting or change in bowel habits reported. Progress of Wound: Improving, has had 2 applications of Epifix so far. No new concerns at this time. Objective Data Objective Data Vital Signs: Vital Signs Temp Pulse Resp BP 96.7 F L 98 18 154/64 H 12/15/22 08:30 12/15/22 08:30 12/15/22 08:30 12/15/22 08:30 Weight: 120 lb Body Mass Index (BMI) 18.8 Charges/Coding Procedures Integumentary 150xxx-152xx: 45714 Skin sub graft trnk/arm/leg Physical Exam Const alert, oriented x3 and no apparent distress General Appearance: cooperative and comfortable Orientation / Consciousness: oriented to person HEENT hearing grossly normal bilaterally Head and Scalp: normal to inspection Eyes conjunctivae normal General Eye: normal appearance of both eyes Neck full ROM General: normal visual inspection Resp normal respiratory effort Effort and Inspection: able to speak in complete sentences Extremity General Extremity: edema Skin Wounds: wounds noted Neuro oriented x3, CN's II-XII intact bilaterally, moves all extremities and no focal motor deficits Speech: speech normal Gait (Neuro): normal gait Psych mental status grossly normal, thought process normal, cooperative and affect normal Debridement Note Debridement Note Wound debrided: Right lower extremity Type of Debridement: Excisional debridement Anesthesia Used: 5% Lidocaine Gel Depth: Down to and including healthy tissue and in the subcutaneous layer Percentage of wound debrided: 100 Instrument Used: 5mm curette Tissue Removed: Slough and devitalized tissue Severity: Fat Layer Exposed Amount of bleeding with debridement: Mild Bleeding Controlled with: Pressure Patient tolerated procedure: Patient tolerated procedure well Post-Debridement Measurements and Additional Note: Post-Debridement Measurements/Treatment RAYA - Nurse 1 - General Ulcer Assessment Start: 12/15/22 08:30 Freq: Status: Active Protocol: JONATHAN Activity Type Activity Date Activity User E-sign Co-sign Detail Recorded Client Recorded Date Recorded By Document 12/15/22 08:30 DL [id number] 12/15/22 08:35 DL 12/15/22 08:30 WC - Today's Visit Information Type of service Follow-up Visit (Physician/MANAGER MEDICAL WRITING ) Arrival Mode Ambulatory Transfer Assistance None Patient Identification Verified (Name & Yes ) Patient Requires Transmission-Based No Precautions Height and Weight Body Mass Index (BMI) 18.8 BMI Classification Normal Vital Signs Temperature (97.8 F-99.1 F) 96.7 F L Temperature Source Temporal Pulse Rate (60-100) 98 Pulse Location Monitor Respiratory Rate (12-18) 18 Respiratory rate source Observation Blood Pressure (90/60-120/80) 154/64 H Blood Pressure Mean (mm Hg) 94 Source Monitor History Since Last Visit- (Skip if this is Patient's initial visit) Have you changed medications since your No last visit? Any new allergies or adverse reactions No Had a fall/change in ADL's that may No increase risk of falls Signs or symptoms of abuse and/or No neglect since last visit Have you been in the hospital since your No last visit? Has dressing in place as prescribed Yes Has compression in place as prescribed No Has offloadiing in place as prescribed N/A Experienced any changes in pain level or No management Pain Scale: 0-10 Numeric Is Patient Pain Free? Yes - Nurse 1 - General Ulcer Measurement Start: 12/15/22 08:30 Freq: Status: Active Protocol: Activity Type Activity Date Activity User E-sign Co-sign Detail Recorded Client Recorded Date Recorded By Document 12/15/22 08:30 DL [id number] 12/15/22 08:35 DL 12/15/22 08:30 Wound Center Nurse 1 #1- RLE LACERATION -Current Size (cm) - Length 2.8 -Current Size (cm) - Width 1.9 -Current Size (cm) - Depth 0.1 -Total Square Cm 5.32 -Photo Taken Yes -Exudate Amt Medium -Exudate Type Serosanguineous -Wound Margin Distinct, Outline Attached -Granulation Amt Medium (34-66%) -Necrosis Amt Medium (34-66%) -Necrotic Tissue Type Adherent Slough -Structure Exposed N/A -Texture (Genesis-wound Skin Appearance) Scarring -Moisture (Genesis-wound Skin Appearance) Dry/Scaly -Color (Genesis-wound Skin Appearance) Hemosiderin Staining -Temperature (Genesis-wound Skin No Abnormality Appearance) (Pt Warm) -Ulcer Cleansing Soap and Water -Foul Odor after Cleansing No -Anesthetic Used 5% Lidocaine Gel Right Calf (cm) 30 Right Ankle (cm) 21.4 WC - Nurse 2 - General Ulcer CM Notes Start: 12/15/22 08:30 Freq: Status: Active Protocol: Activity Type Activity Date Activity User E-sign Co-sign Detail Recorded Client Recorded Date Recorded By Document 12/15/22 08:48 MW [id number] 12/15/22 08:54 MW 12/15/22 08:48 Wound Center Nurse 2 #1- RLE LACERATION -Time 08:51 -Correct Patient Yes -Correct Side, Site, Position Yes -Correct Procedure Yes -Procedure Performed Yes -Type of Procedure Debridement -Clinical Debridement Subcutaneous -Tissue Removed Subcutaneous -Post Debridement (cm) - Length 3.0 -Post Debridement (cm) - Width 2.1 -Post Debridement (cm) - Depth 0.1 -Total Square (Post) (cm) 6.30 -Area of Debridement (cm) - Length 3.0 -Area of Debridement (cm) - Width 2.1 -Total Square (Area) (cm) 6.30 -Tunneling No -Undermining/Tunneling No -Circular Undermining No -Wound/Ulcer Outcome Not Healed -Ulcer Cleansing Rinsed/ Irrigated with Saline -Foul Odor after Cleansing No -Bioengineered Tissue Yes -Type of Bioengineered Tissue Epifix Mesh -Expiration Date 09/15/27 -Product Lot Number [id number] -Percent Used 100 -Lot number of Saline Used [id number] -Bleeding Controlled with Pressure -Treatment Response Procedure Tolerated Well -Offloading No -Debridement - Subq, 1st 20sq cm No -Apply Skin Sub - 1st 25 sq cm - Legs 1 -Epifix Mesh (per sq cm) 11 Pain Scale: 0-10 Numeric Is Patient Pain Free? Yes Assessment/Plan Assessment/Plan (1) Wound of right lower extremity: CODE(S): S81.801A - Unspecified open wound, right lower leg, initial encounter (2) group home (current) use of systemic steroids: CODE(S): Z79.52 - group home (current) use of systemic steroids (3) group home current use of anticoagulant: CODE(S): Z79.01 - director long term care (current) use of anticoagulants PLAN: Plan Debridement done as documented above, procedure was well-tolerated. Improving. No new concerns at this time. Third application of EpiFix done using 100% of product, moistened with saline and covered with Adaptic touch which was secured with Steri-Strips. Keep covered always, may change outer dressing if soaked. Jorge wraps for edema management. Leg elevation, exercise and compression compliance strongly recommended. Increase protein intake also discussed, she voiced understanding. Her questions were answered and she was advised to call if she has any further questions or concerns. This note was generated with [employer] dictation software. It may contain incorrect words, spelling, and punctuation that were not noted in checking the note before signing.
[2022-12-22 08:50] VITALS: BP 120/41; PULSE 93; RESP 18; TEMP 36.1; BMI 18.8
--- NOTE | 2022-12-22 09:31 | PN.PCM_ITS ---
History of Present Illness Date of Service: 12/22/22 Chief Complaint: Right Leg Wound History of Wound: Ms. Lopez is an 87 yo who was referred to the wound center due to nonhealing right leg wound. Sustained wound about 3 weeks ago. Vacuum brush cleaner fell on her leg while she was trying to pull on a coat. Initially seen in the emergency room and had Steri-Strips placed on it however this did not help. Subsequently seen by her counterintelligence agent and was given DuoDERM however, with the application of DuoDERM wound became infected. Discontinued DuoDERM and has been applying Jerod pads and antibiotic ointment. She is also currently on oral antibiotics. Chronic steroid use with history of recurrent wounds thin skin. She feels well otherwise, no chills, nausea, vomiting or change in bowel habits reported. Progress of Wound: Improving, has had 3 applications of Epifix so far. No new concerns at this time. Objective Data Objective Data Vital Signs: Vital Signs Temp Pulse Resp BP 96.9 F L 93 18 120/41 L 12/22/22 08:50 12/22/22 08:50 12/22/22 08:50 12/22/22 08:50 Weight: 120 lb Body Mass Index (BMI) 18.8 Charges/Coding Procedures Integumentary 150xxx-152xx: 77015 Skin sub graft trnk/arm/leg Physical Exam Const alert, oriented x3 and no apparent distress General Appearance: cooperative and comfortable Orientation / Consciousness: oriented to person HEENT hearing grossly normal bilaterally Head and Scalp: normal to inspection Eyes conjunctivae normal General Eye: normal appearance of both eyes Neck full ROM General: normal visual inspection Resp normal respiratory effort Effort and Inspection: able to speak in complete sentences Extremity General Extremity: edema Skin Wounds: wounds noted Neuro oriented x3, CN's II-XII intact bilaterally, moves all extremities and no focal motor deficits Speech: speech normal Gait (Neuro): normal gait Psych mental status grossly normal, thought process normal, cooperative and affect normal Debridement Note Debridement Note Wound debrided: Right lower extremity Type of Debridement: Excisional debridement Anesthesia Used: 5% Lidocaine Gel Depth: Down to and including healthy tissue and in the subcutaneous layer Percentage of wound debrided: 100 Instrument Used: 5mm curette Tissue Removed: Slough and devitalized tissue Severity: Fat Layer Exposed Amount of bleeding with debridement: Mild Bleeding Controlled with: Pressure Patient tolerated procedure: Patient tolerated procedure well Post-Debridement Measurements and Additional Note: Post-Debridement Measurements/Treatment WC - Nurse 1 - General Ulcer Assessment Start: 12/15/22 08:30 Freq: Status: Active Protocol: JONATHAN Activity Type Activity Date Activity User E-sign Co-sign Detail Recorded Client Recorded Date Recorded By Document 12/15/22 08:30 DL [id number] 12/15/22 08:35 DL Document 12/22/22 08:50 DL [id number] 12/22/22 08:54 DL 12/15/22 12/22/22 08:30 08:50 WC - Today's Visit Information Type of service Follow-up Visit Follow-up Visit (Physician/REWORK OPERATOR (Physician/REWORK OPERATOR ) ) Arrival Mode Ambulatory Ambulatory Transfer Assistance None None Patient Identification Verified (Name & Yes Yes ) Patient Requires Transmission-Based No No Precautions Height and Weight Body Mass Index (BMI) 18.8 18.8 BMI Classification Normal Normal Vital Signs Temperature (97.8 F-99.1 F) 96.7 F L 96.9 F L Temperature Source Temporal Temporal Pulse Rate (60-100) 98 93 Pulse Location Monitor Monitor Respiratory Rate (12-18) 18 18 Respiratory rate source Observation Observation Blood Pressure (90/60-120/80) 154/64 H 120/41 L Blood Pressure Mean (mm Hg) 94 67 Source Monitor Monitor History Since Last Visit- (Skip if this is Patient's initial visit) Have you changed medications since your No No last visit? Any new allergies or adverse reactions No No Had a fall/change in ADL's that may No No increase risk of falls Signs or symptoms of abuse and/or No No neglect since last visit Have you been in the hospital since your No No last visit? Has dressing in place as prescribed Yes Yes Has compression in place as prescribed No Yes Has offloadiing in place as prescribed N/A Yes Experienced any changes in pain level or No No management Pain Scale: 0-10 Numeric Is Patient Pain Free? Yes Yes - Nurse 1 - General Ulcer Measurement Start: 12/15/22 08:30 Freq: Status: Active Protocol: Activity Type Activity Date Activity User E-sign Co-sign Detail Recorded Client Recorded Date Recorded By Document 12/15/22 08:30 DL [id number] 12/15/22 08:35 DL Document 12/22/22 08:50 DL [id number] 12/22/22 08:54 DL 12/15/22 12/22/22 08:30 08:50 Wound Center Nurse 1 #1- RLE LACERATION -Current Size (cm) - Length 2.8 2.3 -Current Size (cm) - Width 1.9 2 -Current Size (cm) - Depth 0.1 0.1 -Total Square Cm 5.32 4.6 -Photo Taken Yes Yes -Exudate Amt Medium Medium -Exudate Type Serosanguineous Serosanguineous -Wound Margin Distinct, Distinct, Outline Outline Attached Attached -Granulation Amt Medium (34-66%) Small (1-33%) -Granulation Quality Red -Necrosis Amt Medium (34-66%) Large (67-100%) -Necrotic Tissue Type Adherent Slough Adherent Slough -Structure Exposed N/A N/A -Texture (Genesis-wound Skin Appearance) Scarring Scarring -Moisture (Genesis-wound Skin Appearance) Dry/Scaly No Abnormality -Color (Genesis-wound Skin Appearance) Hemosiderin Hemosiderin Staining Staining -Temperature (Genesis-wound Skin No Abnormality No Abnormality Appearance) (Pt Warm) (Pt Warm) -Tenderness on Palpation (Genesis-wound No Skin Appearance) -Ulcer Cleansing Soap and Water Soap and Water -Foul Odor after Cleansing No No -Anesthetic Used 5% Lidocaine 5% Lidocaine Gel Gel Right Calf (cm) 30 30.4 Right Ankle (cm) 21.4 20.3 WC - Nurse 2 - General Ulcer CM Notes Start: 12/15/22 08:30 Freq: Status: Active Protocol: Activity Type Activity Date Activity User E-sign Co-sign Detail Recorded Client Recorded Date Recorded By Document 12/15/22 08:48 MW [id number] 12/15/22 08:54 MW Document 12/22/22 09:19 MW [id number] 12/22/22 09:26 MW 12/15/22 12/22/22 08:48 09:19 Wound Center Nurse 2 #1- RLE LACERATION -Time 08:51 09:19 -Correct Patient Yes Yes -Correct Side, Site, Position Yes Yes -Correct Procedure Yes Yes -Procedure Performed Yes Yes -Type of Procedure Debridement Debridement -Clinical Debridement Subcutaneous Subcutaneous -Tissue Removed Subcutaneous Subcutaneous -Post Debridement (cm) - Length 3.0 2.8 -Post Debridement (cm) - Width 2.1 1.8 -Post Debridement (cm) - Depth 0.1 0.1 -Total Square (Post) (cm) 6.30 5.04 -Area of Debridement (cm) - Length 3.0 2.8 -Area of Debridement (cm) - Width 2.1 1.8 -Total Square (Area) (cm) 6.30 5.04 -Tunneling No No -Undermining/Tunneling No No -Circular Undermining No No -Wound/Ulcer Outcome Not Healed Not Healed -Ulcer Cleansing Rinsed/ Rinsed/ Irrigated with Irrigated with Saline Saline -Foul Odor after Cleansing No No -Bioengineered Tissue Yes Yes -Type of Bioengineered Tissue Epifix Mesh Epifix -Expiration Date 09/15/27 08/17/27 -Product Lot Number [id number] -Percent Used 100 100 -Lot number of Saline Used [id number] -Bleeding Controlled with Pressure Pressure -Treatment Response Procedure Procedure Tolerated Well Tolerated Well -Offloading No No -Debridement - Subq, 1st 20sq cm No No -Apply Skin Sub - 1st 25 sq cm - Legs 1 1 -Epifix (per sq cm) 4 -Epifix Mesh (per sq cm) 11 Pain Scale: 0-10 Numeric Is Patient Pain Free? Yes Yes WC - Nurse 3 - General Ulcer D/C NN Start: 12/15/22 08:30 Freq: Status: Active Protocol: Activity Type Activity Date Activity User E-sign Co-sign Detail Recorded Client Recorded Date Recorded By Document 12/15/22 09:00 DL [id number] 12/15/22 09:02 DL Document 12/22/22 09:28 MW [id number] 12/22/22 09:29 MW 12/15/22 12/22/22 09:00 09:28 Wound Care Center Nurse 3 #1- RLE LACERATION -Ulcer Cleansing Not Cleansed -Foul Odor after Cleansing No -Primary Dressing Applied Mepilex Border Mepilex Border -Other Dressing Epimesh -Primary Dressing Covered/Secured with Dry Gauze Dry Gauze -Mepilex Border 1 1 Right -Lotion applied to leg before No compression wrap -Compression Wrap Jorge Wrap Treatment Response Procedure Procedure Tolerated Well Tolerated Well Pain Scale: 0-10 Numeric Is Patient Pain Free? Yes Yes Teaching: Wound Center Dressing Your Wound -Person Taught Patient -Teaching Method Discussion -Response to teaching Verbalize understanding WC - Visit Discharge Discharge Condition Stable Stable Ambulatory Status Ambulatory Ambulatory Transportation Private Auto Private Auto Accompanied by self Medication Reconcilliation completed & No provided to patient/care provider Clinical Summary of Care Provided Yes Assessment/Plan Assessment/Plan (1) Wound of right lower extremity: CODE(S): S81.801A - Unspecified open wound, right lower leg, initial encounter (2) skilled nursing (current) use of systemic steroids: CODE(S): Z79.52 - skilled nursing (current) use of systemic steroids (3) supervisor intermediates current use of anticoagulant: CODE(S): Z79.01 - skilled nursing (current) use of anticoagulants PLAN: Plan Debridement done as documented above, procedure was well-tolerated. Improving. No new concerns at this time. 4th application of EpiFix done using 100% of product, moistened with hydrogel,covered with Adaptic touch and secured with Steri-Strips. Keep covered always, may change outer dressing if soaked. Jorge wraps for edema management. Leg elevation, exercise and compression compliance strongly recommended. Increase protein intake also discussed, she voiced understanding. Her questions were answered and she was advised to call if she has any further questions or concerns. This note was generated with [employer] dictation software. It may contain incorrect words, spelling, and punctuation that were not noted in checking the note before signing.
[2022-12-29 08:37] VITALS: BP 120/69; PULSE 89; TEMP 36.2; BMI 18.8
--- NOTE | 2022-12-29 09:11 | PCM.WC.PN ---
History of Present Illness Date of Service: 12/29/22 Chief Complaint: Right Leg Wound History of Wound: Ms. Lopez is an 87 yo who was referred to the wound center due to nonhealing right leg wound. Sustained wound about 3 weeks ago. Vacuum die cleaner fell on her leg while she was trying to pull on a coat. Initially seen in the emergency room and had Steri-Strips placed on it however this did not help. 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 Discontinued DuoDERM and has been applying Jerod pads and antibiotic ointment. She is also currently on oral antibiotics. Chronic steroid use with history of recurrent wounds thin skin. She feels well otherwise, no chills, nausea, vomiting or change in bowel habits reported. Progress of Wound: Improving, has had 4 applications of Epifix so far. No new concerns at this time. Objective Data Objective Data Vital Signs: Vital Signs Temp Pulse Resp BP 97.1 F L 89 18 120/69 12/29/22 08:37 12/29/22 08:37 12/22/22 08:50 12/29/22 08:37 Weight: 120 lb Body Mass Index (BMI) 18.8 Charges/Coding Procedures Integumentary 150xxx-152xx: 34195 Skin sub graft trnk/arm/leg Physical Exam Const alert, oriented x3 and no apparent distress General Appearance: cooperative and comfortable Orientation / Consciousness: oriented to person HEENT hearing grossly normal bilaterally Head and Scalp: normal to inspection Eyes conjunctivae normal General Eye: normal appearance of both eyes Neck full ROM General: normal visual inspection Resp normal respiratory effort Effort and Inspection: able to speak in complete sentences Extremity General Extremity: edema Skin Wounds: wounds noted Neuro oriented x3, CN's II-XII intact bilaterally, moves all extremities and no focal motor deficits Speech: speech normal Gait (Neuro): normal gait Psych mental status grossly normal, thought process normal, cooperative and affect normal Debridement Note Debridement Note Wound debrided: Right lower extremity Type of Debridement: Excisional debridement Anesthesia Used: 5% Lidocaine Gel Depth: Down to and including healthy tissue and in the subcutaneous layer Percentage of wound debrided: 100 Instrument Used: 5mm curette Tissue Removed: Slough and devitalized tissue Severity: Fat Layer Exposed Amount of bleeding with debridement: Mild Bleeding Controlled with: Pressure Patient tolerated procedure: Patient tolerated procedure well Post-Debridement Measurements and Additional Note: Post-Debridement Measurements/Treatment WC - Nurse 1 - General Ulcer Assessment Start: 12/15/22 08:30 Freq: Status: Active Protocol: JONATHAN Activity Type Activity Date Activity User E-sign Co-sign Detail Recorded Client Recorded Date Recorded By Document 12/15/22 08:30 DL [id number] 12/15/22 08:35 DL Document 12/22/22 08:50 DL [id number] 12/22/22 08:54 DL Document 12/29/22 08:37 AK [id number] 12/29/22 08:40 AK 12/15/22 12/22/22 12/29/22 08:30 08:50 08:37 WC - Today's Visit Information Type of service Follow-up Visit Follow-up Visit Follow-up Visit (Physician/SENIOR DATA MINING ANALYST (Physician/SENIOR DATA MINING ANALYST (Physician/SENIOR DATA MINING ANALYST ) ) ) Arrival Mode Ambulatory Ambulatory Ambulatory Transfer Assistance None None Patient Identification Verified (Name & Yes Yes Yes ) Patient Requires Transmission-Based No No No Precautions Safety Precautions NA Height and Weight Body Mass Index (BMI) 18.8 18.8 18.8 BMI Classification Normal Normal Normal Vital Signs Temperature (97.8 F-99.1 F) 96.7 F L 96.9 F L 97.1 F L Temperature Source Temporal Temporal Temporal Pulse Rate (60-100) 98 93 89 Pulse Location Monitor Monitor Monitor Respiratory Rate (12-18) 18 18 Respiratory rate source Observation Observation Blood Pressure (90/60-120/80) 154/64 H 120/41 L 120/69 Blood Pressure Mean (mm Hg) 94 67 86 Source Monitor Monitor Monitor History Since Last Visit- (Skip if this is Patient's initial visit) Have you changed medications since your No No No last visit? Any new allergies or adverse reactions No No No Had a fall/change in ADL's that may No No No increase risk of falls Signs or symptoms of abuse and/or No No No neglect since last visit Have you been in the hospital since your No No No last visit? Has dressing in place as prescribed Yes Yes Yes Has compression in place as prescribed No Yes N/A Has offloadiing in place as prescribed N/A Yes N/A Experienced any changes in pain level or No No No management Left Footwear Regular Shoe Right Footwear Regular Shoe Pain Scale: 0-10 Numeric Is Patient Pain Free? Yes Yes Yes WC - Nurse 1 - General Ulcer Measurement Start: 12/15/22 08:30 Freq: Status: Active Protocol: Activity Type Activity Date Activity User E-sign Co-sign Detail Recorded Client Recorded Date Recorded By Document 12/15/22 08:30 DL [id number] 12/15/22 08:35 DL Document 12/22/22 08:50 DL [id number] 12/22/22 08:54 DL Document 12/29/22 08:37 AK [id number] 12/29/22 08:40 AK 12/15/22 12/22/22 12/29/22 08:30 08:50 08:37 Wound Center Nurse 1 #1- RLE LACERATION -Combined with other wound No -Current Size (cm) - Length 2.8 2.3 1.5 -Current Size (cm) - Width 1.9 2 1 -Current Size (cm) - Depth 0.1 0.1 0.1 -Total Square Cm 5.32 4.6 1.5 -Photo Taken Yes Yes Yes -Tunneling No -Undermining/Tunneling No -Circular Undermining No -Change in Wound Grade/Stage No -Exudate Amt Medium Medium None Present -Exudate Type Serosanguineous Serosanguineous Serosanguineous -Wound Margin Distinct, Distinct, Distinct, Outline Outline Outline Attached Attached Attached -Granulation Amt Medium (34-66%) Small (1-33%) Medium (34-66%) -Granulation Quality [place] -Slough/Fibrin Yes -Necrosis Amt Medium (34-66%) Large (67-100%) Medium (34-66%) -Necrotic Tissue Type Adherent Slough Adherent Slough Adherent Slough -Structure Exposed N/A N/A N/A -Texture (Genesis-wound Skin Appearance) Scarring Scarring No Abnormality, Assessed -Moisture (Genesis-wound Skin Appearance) Dry/Scaly No Abnormality No Abnormality, Assessed -Color (Genesis-wound Skin Appearance) Hemosiderin Hemosiderin No Abnormality, Staining Staining Assessed -Temperature (Genesis-wound Skin No Abnormality No Abnormality No Abnormality Appearance) (Pt Warm) (Pt Warm) (Pt Warm) -Tenderness on Palpation (Genesis-wound No No Skin Appearance) -Ulcer Cleansing Soap and Water Soap and Water Rinsed/ Irrigated with Saline -Foul Odor after Cleansing No No No -Anesthetic Used 5% Lidocaine 5% Lidocaine 5% Lidocaine Gel Gel Gel Right Calf (cm) 30 30.4 Right Ankle (cm) 21.4 20.3 WC - Nurse 2 - General Ulcer CM Notes Start: 12/15/22 08:30 Freq: Status: Active Protocol: Activity Type Activity Date Activity User E-sign Co-sign Detail Recorded Client Recorded Date Recorded By Document 12/15/22 08:48 MW [id number] 12/15/22 08:54 MW Document 12/22/22 09:19 MW [id number] 12/22/22 09:26 MW Document 12/29/22 08:51 MW Desktop 12/29/22 08:59 MW 12/15/22 12/22/22 12/29/22 08:48 09:19 08:51 Wound Center Nurse 2 #1- RLE LACERATION -Time 08:51 09:19 08:51 -Correct Patient Yes Yes Yes -Correct Side, Site, Position Yes Yes Yes -Correct Procedure Yes Yes Yes -Procedure Performed Yes Yes Yes -Type of Procedure Debridement Debridement Debridement -Clinical Debridement Subcutaneous Subcutaneous Subcutaneous -Tissue Removed Subcutaneous Subcutaneous Subcutaneous -Post Debridement (cm) - Length 3.0 2.8 1.9 -Post Debridement (cm) - Width 2.1 1.8 1.4 -Post Debridement (cm) - Depth 0.1 0.1 0.1 -Total Square (Post) (cm) 6.30 5.04 2.66 -Area of Debridement (cm) - Length 3.0 2.8 1.9 -Area of Debridement (cm) - Width 2.1 1.8 1.4 -Total Square (Area) (cm) 6.30 5.04 2.66 -Tunneling No No No -Undermining/Tunneling No No No -Circular Undermining No No No -Wound/Ulcer Outcome Not Healed Not Healed Not Healed -Ulcer Cleansing Rinsed/ Rinsed/ Rinsed/ Irrigated with Irrigated with Irrigated with Saline Saline Saline -Foul Odor after Cleansing No No No -Bioengineered Tissue Yes Yes Yes -Type of Bioengineered Tissue Epifix Mesh Epifix Epifix -Expiration Date 09/15/27 08/17/27 08/17/22 -Product Lot Number [id number] -Percent Used 100 100 100 -Lot number of Saline Used [id number] -Bleeding Controlled with Pressure Pressure Pressure -Treatment Response Procedure Procedure Procedure Tolerated Well Tolerated Well Tolerated Well -Offloading No No No -Debridement - Subq, 1st 20sq cm No No No -Apply Skin Sub - 1st 25 sq cm - Legs 1 1 1 -Epifix (per sq cm) 4 4 -Epifix Mesh (per sq cm) 11 Pain Scale: 0-10 Numeric Is Patient Pain Free? Yes Yes Yes WC - Nurse 3 - General Ulcer D/C NN Start: 12/15/22 08:30 Freq: Status: Active Protocol: Activity Type Activity Date Activity User E-sign Co-sign Detail Recorded Client Recorded Date Recorded By Document 12/15/22 09:00 DL [id number] 12/15/22 09:02 DL Document 12/22/22 09:28 MW [id number] 12/22/22 09:29 MW Document 12/29/22 08:59 MW Desktop 12/29/22 09:00 MW 12/15/22 12/22/22 12/29/22 09:00 09:28 08:59 Wound Care Center Nurse 3 #1- RLE LACERATION -Ulcer Cleansing Not Cleansed Not Cleansed -Foul Odor after Cleansing No No -Negative Pressure Wound Therapy N/A -Primary Dressing Applied Mepilex Border Mepilex Border Mepilex Border -Other Dressing Epimesh -Primary Dressing Covered/Secured with Dry Gauze Dry Gauze Dry Gauze -Mepilex Border 1 1 1 Right -Lotion applied to leg before No No compression wrap -Compression Wrap Jorge Wrap Jorge Wrap Treatment Response Procedure Procedure Procedure Tolerated Well Tolerated Well Tolerated Well Pain Scale: 0-10 Numeric Is Patient Pain Free? Yes Yes Yes Teaching: Wound Center Control Swelling with Leg Elevation -Person Taught Patient -Teaching Method Discussion -Response to teaching Verbalize understanding Dressing Your Wound -Person Taught Patient -Teaching Method Discussion -Response to teaching Verbalize understanding WC - Visit Discharge Discharge Condition Stable Stable Stable Ambulatory Status Ambulatory Ambulatory Ambulatory Transportation Private Auto Private Auto Private Auto Accompanied by self self Medication Reconcilliation completed & No No provided to patient/care provider Clinical Summary of Care Provided Yes Yes Assessment/Plan Assessment/Plan (1) Wound of right lower extremity: CODE(S): S81.801A - Unspecified open wound, right lower leg, initial encounter (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 Improving. No new concerns at this time. 5th application of EpiFix done using 100% of product, moistened with hydrogel,covered with Adaptic touch and secured with Steri-Strips. Keep covered always, may change outer dressing if soaked. Jorge wraps for edema management. Leg elevation, exercise and compression compliance strongly recommended. Increase protein intake also discussed, she voiced understanding. Her questions were answered and she was advised to call if she has any further questions or concerns. This note was generated with [employer] dictation software. It may contain incorrect words, spelling, and punctuation that were not noted in checking the note before signing.
[2023-01-05 08:51] VITALS: BP 124/74; PULSE 84; RESP 16; TEMP 36.2; BMI 18.8
--- NOTE | 2023-01-05 11:05 | PCM.WC.PN ---
History of Present Illness Date of Service: 01/05/23 Chief Complaint: Right Leg Wound History of Wound: Ms. Lopez is an 87 yo who was referred to the wound center due to nonhealing right leg wound. Sustained wound about 3 weeks ago. Vacuum sleeping room cleaner fell on her leg while she was trying to pull on a coat. Initially seen in the emergency room and had Steri-Strips placed on it however this did not help. Subsequently seen by her bookkeeping machine mechanic and was given DuoDERM however, with the application of DuoDERM wound became infected. Discontinued DuoDERM and has been applying Jerod pads and antibiotic ointment. She is also currently on oral antibiotics. Chronic steroid use with history of recurrent wounds thin skin. She feels well otherwise, no chills, nausea, vomiting or change in bowel habits reported. Progress of Wound: Improving, has had 5 applications of Epifix so far. No new concerns at this time. Objective Data Objective Data Vital Signs: Vital Signs Temp Pulse Resp BP O2 Del Method 97.1 F L 84 16 124/74 H Room Air 01/05/23 08:51 01/05/23 08:51 01/05/23 08:51 01/05/23 08:51 01/05/23 08:51 Oxygen Delivery Method Room Air Weight: 120 lb Body Mass Index (BMI) 18.8 Charges/Coding Procedures Integumentary 150xxx-152xx: [id number] Skin sub graft trnk/arm/leg Physical Exam Const alert, oriented x3 and no apparent distress General Appearance: cooperative and comfortable Orientation / Consciousness: oriented to person HEENT hearing grossly normal bilaterally Head and Scalp: normal to inspection Eyes conjunctivae normal General Eye: normal appearance of both eyes Neck full ROM General: normal visual inspection Resp normal respiratory effort Effort and Inspection: able to speak in complete sentences Extremity General Extremity: edema Skin Wounds: wounds noted Neuro oriented x3, CN's II-XII intact bilaterally, moves all extremities and no focal motor deficits Speech: speech normal Gait (Neuro): normal gait Psych mental status grossly normal, thought process normal, cooperative and affect normal Debridement Note Debridement Note Wound debrided: Right lower extremity Type of Debridement: Excisional debridement Anesthesia Used: 5% Lidocaine Gel Depth: Down to and including healthy tissue and in the subcutaneous layer Percentage of wound debrided: 100 Instrument Used: 5mm curette Tissue Removed: Slough and devitalized tissue Severity: Fat Layer Exposed Amount of bleeding with debridement: Mild Bleeding Controlled with: Pressure Patient tolerated procedure: Patient tolerated procedure well Post-Debridement Measurements and Additional Note: Post-Debridement Measurements/Treatment - Nurse 1 - General Ulcer Assessment Start: 12/15/22 08:30 Freq: Status: Active Protocol: JONATHAN Activity Type Activity Date Activity User E-sign Co-sign Detail Recorded Client Recorded Date Recorded By Document 12/15/22 08:30 DL [id number] 12/15/22 08:35 DL Document 12/22/22 08:50 DL [id number] 12/22/22 08:54 DL Document 12/29/22 08:37 AK [id number] 12/29/22 08:40 AK Document 01/05/23 08:51 BMF [id number] 01/05/23 08:58 BMF 12/15/22 12/22/22 12/29/22 08:30 08:50 08:37 - Today's Visit Information Type of service Follow-up Visit Follow-up Visit Follow-up Visit (Physician/CAE ENGINEER (Physician/CAE ENGINEER (Physician/CAE ENGINEER ) ) ) Arrival Mode Ambulatory Ambulatory Ambulatory Transfer Assistance None None Patient Identification Verified (Name & Yes Yes Yes ) Patient Requires Transmission-Based No No No Precautions Safety Precautions NA Height and Weight Body Mass Index (BMI) 18.8 18.8 18.8 BMI Classification Normal Normal Normal Vital Signs Temperature (97.8 F-99.1 F) 96.7 F L 96.9 F L 97.1 F L Temperature Source Temporal Temporal Temporal Pulse Rate (60-100) 98 93 89 Pulse Location Monitor Monitor Monitor Respiratory Rate (12-18) 18 18 Respiratory rate source Observation Observation Oxygen Delivery Method Blood Pressure (90/60-120/80) 154/64 H 120/41 L 120/69 Blood Pressure Mean (mm Hg) 94 67 86 Source Monitor Monitor Monitor Position Blood Pressure Location History Since Last Visit- (Skip if this is Patient's initial visit) Have you changed medications since your No No No last visit? Any new allergies or adverse reactions No No No Had a fall/change in ADL's that may No No No increase risk of falls Signs or symptoms of abuse and/or No No No neglect since last visit Have you been in the hospital since your No No No last visit? Has dressing in place as prescribed Yes Yes Yes Has compression in place as prescribed No Yes N/A Has offloadiing in place as prescribed N/A Yes N/A Experienced any changes in pain level or No No No management Left Footwear Regular Shoe Right Footwear Regular Shoe Pain Scale: 0-10 Numeric Is Patient Pain Free? Yes Yes Yes 01/05/23 08:51 WC - Today's Visit Information Type of service Follow-up Visit (Physician/CAE ENGINEER ) Arrival Mode Ambulatory Transfer Assistance None Patient Identification Verified (Name & Yes ) Patient Requires Transmission-Based No Precautions Safety Precautions Height and Weight Body Mass Index (BMI) 18.8 BMI Classification Normal Vital Signs Temperature (97.8 F-99.1 F) 97.1 F L Temperature Source Temporal Pulse Rate (60-100) 84 Pulse Location Monitor Respiratory Rate (12-18) 16 Respiratory rate source Observation Oxygen Delivery Method Room Air Blood Pressure (90/60-120/80) 124/74 H Blood Pressure Mean (mm Hg) 90 Source Monitor Position Sitting Blood Pressure Location Left Arm History Since Last Visit- (Skip if this is Patient's initial visit) Have you changed medications since your No last visit? Any new allergies or adverse reactions No Had a fall/change in ADL's that may No increase risk of falls Signs or symptoms of abuse and/or No neglect since last visit Have you been in the hospital since your No last visit? Has dressing in place as prescribed Yes Has compression in place as prescribed No Has offloadiing in place as prescribed N/A Experienced any changes in pain level or No management Left Footwear Regular Shoe Right Footwear Regular Shoe Pain Scale: 0-10 Numeric Is Patient Pain Free? Yes - Nurse 1 - General Ulcer Measurement Start: 12/15/22 08:30 Freq: Status: Active Protocol: Activity Type Activity Date Activity User E-sign Co-sign Detail Recorded Client Recorded Date Recorded By Document 12/15/22 08:30 DL [id number] 12/15/22 08:35 DL Document 12/22/22 08:50 DL [id number] 12/22/22 08:54 DL Document 12/29/22 08:37 AK [id number] 12/29/22 08:40 AK Document 01/05/23 08:51 BMF [id number] 01/05/23 08:58 BMF 12/15/22 12/22/22 12/29/22 08:30 08:50 08:37 Wound Center Nurse 1 #1- RLE LACERATION -Combined with other wound No -Current Size (cm) - Length 2.8 2.3 1.5 -Current Size (cm) - Width 1.9 2 1 -Current Size (cm) - Depth 0.1 0.1 0.1 -Total Square Cm 5.32 4.6 1.5 -Date of Last Picture (Recall this field) -Photo Taken Yes Yes Yes -Epithelialization -Tunneling No -Undermining/Tunneling No -Circular Undermining No -Change in Wound Grade/Stage No -Exudate Amt Medium Medium None Present -Exudate Type Serosanguineous Serosanguineous Serosanguineous -Wound Margin Distinct, Distinct, Distinct, Outline Outline Outline Attached Attached Attached -Granulation Amt Medium (34-66%) Small (1-33%) Medium (34-66%) -Granulation Quality Red [place] -Slough/Fibrin Yes -Necrosis Amt Medium (34-66%) Large (67-100%) Medium (34-66%) -Necrotic Tissue Type Adherent Slough Adherent Slough Adherent Slough -Structure Exposed N/A N/A N/A -Texture (Genesis-wound Skin Appearance) Scarring Scarring No Abnormality, Assessed -Moisture (Genesis-wound Skin Appearance) Dry/Scaly No Abnormality No Abnormality, Assessed -Color (Genesis-wound Skin Appearance) Hemosiderin Hemosiderin No Abnormality, Staining Staining Assessed -Temperature (Genesis-wound Skin No Abnormality No Abnormality No Abnormality Appearance) (Pt Warm) (Pt Warm) (Pt Warm) -Tenderness on Palpation (Genesis-wound No No Skin Appearance) -Ulcer Cleansing Soap and Water Soap and Water Rinsed/ Irrigated with Saline -Foul Odor after Cleansing No No No -Anesthetic Used 5% Lidocaine 5% Lidocaine 5% Lidocaine Gel Gel Gel Right Calf (cm) 30 30.4 Right Ankle (cm) 21.4 20.3 01/05/23 08:51 Wound Center Nurse 1 #1- RLE LACERATION -Combined with other wound No -Current Size (cm) - Length 1.7 -Current Size (cm) - Width 1.5 -Current Size (cm) - Depth 1.1 -Total Square Cm 2.55 -Date of Last Picture (Recall this 01/05/23 field) -Photo Taken Yes -Epithelialization None Present -Tunneling No -Undermining/Tunneling No -Circular Undermining No -Change in Wound Grade/Stage -Exudate Amt Medium -Exudate Type Serosanguineous -Wound Margin Distinct, Outline Attached -Granulation Amt None Present (0 %) -Granulation Quality -Slough/Fibrin Yes -Necrosis Amt Large (67-100%) -Necrotic Tissue Type Adherent Slough -Structure Exposed -Texture (Genesis-wound Skin Appearance) Assessed, Scarring -Moisture (Genesis-wound Skin Appearance) Assessed -Color (Genesis-wound Skin Appearance) Assessed -Temperature (Genesis-wound Skin No Abnormality Appearance) (Pt Warm) -Tenderness on Palpation (Genesis-wound No Skin Appearance) -Ulcer Cleansing Soap and Water -Foul Odor after Cleansing No -Anesthetic Used 5% Lidocaine Gel Right Calf (cm) 30 Right Ankle (cm) 20.6 WC - Nurse 2 - General Ulcer CM Notes Start: 12/15/22 08:30 Freq: Status: Active Protocol: Activity Type Activity Date Activity User E-sign Co-sign Detail Recorded Client Recorded Date Recorded By Document 12/15/22 08:48 MW [id number] 12/15/22 08:54 MW Document 12/22/22 09:19 MW [id number] 12/22/22 09:26 MW Document 12/29/22 08:51 MW Desktop 12/29/22 08:59 MW Document 01/05/23 09:29 MW [id number] 01/05/23 09:34 MW 12/15/22 12/22/22 12/29/22 08:48 09:19 08:51 Wound Center Nurse 2 #1- RLE LACERATION -Time 08:51 09:19 08:51 -Correct Patient Yes Yes Yes -Correct Side, Site, Position Yes Yes Yes -Correct Procedure Yes Yes Yes -Procedure Performed Yes Yes Yes -Type of Procedure Debridement Debridement Debridement -Clinical Debridement Subcutaneous Subcutaneous Subcutaneous -Tissue Removed Subcutaneous Subcutaneous Subcutaneous -Post Debridement (cm) - Length 3.0 2.8 1.9 -Post Debridement (cm) - Width 2.1 1.8 1.4 -Post Debridement (cm) - Depth 0.1 0.1 0.1 -Total Square (Post) (cm) 6.30 5.04 2.66 -Area of Debridement (cm) - Length 3.0 2.8 1.9 -Area of Debridement (cm) - Width 2.1 1.8 1.4 -Total Square (Area) (cm) 6.30 5.04 2.66 -Tunneling No No No -Undermining/Tunneling No No No -Circular Undermining No No No -Wound/Ulcer Outcome Not Healed Not Healed Not Healed -Ulcer Cleansing Rinsed/ Rinsed/ Rinsed/ Irrigated with Irrigated with Irrigated with Saline Saline Saline -Foul Odor after Cleansing No No No -Bioengineered Tissue Yes Yes Yes -Type of Bioengineered Tissue Epifix Mesh Epifix Epifix -Expiration Date 09/15/27 08/17/27 08/17/22 -Product Lot Number [id number] -Percent Used 100 100 100 -Lot number of Saline Used [id number] -Bleeding Controlled with Pressure Pressure Pressure -Treatment Response Procedure Procedure Procedure Tolerated Well Tolerated Well Tolerated Well -Offloading No No No -Debridement - Subq, 1st 20sq cm No No No -Apply Skin Sub - 1st 25 sq cm - Legs 1 1 1 -Epifix (per sq cm) 4 4 -Epifix 18mm Disc -Epifix Mesh (per sq cm) 11 Pain Scale: 0-10 Numeric Is Patient Pain Free? Yes Yes Yes 01/05/23 09:29 Wound Center Nurse 2 #1- RLE LACERATION -Time 09:33 -Correct Patient Yes -Correct Side, Site, Position Yes -Correct Procedure Yes -Procedure Performed Yes -Type of Procedure Debridement -Clinical Debridement Subcutaneous -Tissue Removed Subcutaneous -Post Debridement (cm) - Length 1.6 -Post Debridement (cm) - Width 1.3 -Post Debridement (cm) - Depth 0.1 -Total Square (Post) (cm) 2.08 -Area of Debridement (cm) - Length 1.6 -Area of Debridement (cm) - Width 1.3 -Total Square (Area) (cm) 2.08 -Tunneling No -Undermining/Tunneling No -Circular Undermining No -Wound/Ulcer Outcome Not Healed -Ulcer Cleansing Rinsed/ Irrigated with Saline -Foul Odor after Cleansing No -Bioengineered Tissue Yes -Type of Bioengineered Tissue Epifix 18mm Disc -Expiration Date 10/16/27 -Product Lot Number [id number] -Percent Used 100 -Lot number of Saline Used [id number] -Bleeding Controlled with Pressure -Treatment Response Procedure Tolerated Well -Offloading No -Debridement - Subq, 1st 20sq cm No -Apply Skin Sub - 1st 25 sq cm - Legs 1 -Epifix (per sq cm) -Epifix 18mm Disc 3 -Epifix Mesh (per sq cm) Pain Scale: 0-10 Numeric Is Patient Pain Free? Yes WC - Nurse 3 - General Ulcer D/C NN Start: 12/15/22 08:30 Freq: Status: Active Protocol: Activity Type Activity Date Activity User E-sign Co-sign Detail Recorded Client Recorded Date Recorded By Document 12/15/22 09:00 DL [id number] 12/15/22 09:02 DL Document 12/22/22 09:28 MW [id number] 12/22/22 09:29 MW Document 12/29/22 08:59 MW Desktop 12/29/22 09:00 MW Document 01/05/23 09:39 BMF [id number] 01/05/23 09:39 BMF 12/15/22 12/22/22 12/29/22 09:00 09:28 08:59 Wound Care Center Nurse 3 #1- RLE LACERATION -Ulcer Cleansing Not Cleansed Not Cleansed -Foul Odor after Cleansing No No -Negative Pressure Wound Therapy N/A -Primary Dressing Applied Mepilex Border Mepilex Border Mepilex Border -Other Dressing Epimesh -Primary Dressing Covered/Secured with Dry Gauze Dry Gauze Dry Gauze -Other Covering -Mepilex Border 1 1 1 Right -Lotion applied to leg before No No compression wrap -Compression Wrap Jorge Wrap Jorge Wrap Treatment Response Procedure Procedure Procedure Tolerated Well Tolerated Well Tolerated Well Pain Scale: 0-10 Numeric Is Patient Pain Free? Yes Yes Yes Teaching: Wound Center Control Swelling with Leg Elevation -Person Taught Patient -Teaching Method Discussion -Response to teaching Verbalize understanding Dressing Your Wound -Person Taught Patient -Teaching Method Discussion -Response to teaching Verbalize understanding WC - Visit Discharge Discharge Condition Stable Stable Stable Ambulatory Status Ambulatory Ambulatory Ambulatory Transportation Private Auto Private Auto Private Auto Accompanied by self self Medication Reconcilliation completed & No No provided to patient/care provider Clinical Summary of Care Provided Yes Yes 01/05/23 09:39 Wound Care Center Nurse 3 #1- RLE LACERATION -Ulcer Cleansing -Foul Odor after Cleansing -Negative Pressure Wound Therapy -Primary Dressing Applied Mepilex Border -Other Dressing epifix -Primary Dressing Covered/Secured with Dry Gauze -Other Covering per dl makeup editor -Mepilex Border 1 Right -Lotion applied to leg before compression wrap -Compression Wrap Treatment Response Procedure Tolerated Well Pain Scale: 0-10 Numeric Is Patient Pain Free? Yes Teaching: Wound Center Control Swelling with Leg Elevation -Person Taught -Teaching Method -Response to teaching Dressing Your Wound -Person Taught -Teaching Method -Response to teaching WC - Visit Discharge Discharge Condition Stable Ambulatory Status Ambulatory Transportation Private Auto Accompanied by Medication Reconcilliation completed & provided to patient/care provider Clinical Summary of Care Provided Assessment/Plan Assessment/Plan (1) Wound of right lower extremity: CODE(S): S81.801A - Unspecified open wound, right lower leg, initial encounter (2) long-term (current) use of systemic steroids: CODE(S): Z79.52 - 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 Improving. No new concerns at this time. 6th application of EpiFix done using 100% of product, moistened with hydrogel,covered with Adaptic touch and secured with Steri-Strips. Keep covered always, may change outer dressing if soaked. Jorge wraps for edema management. Leg elevation, exercise and compression compliance strongly recommended. Increase protein intake also discussed, she voiced understanding. Her questions were answered and she was advised to call if she has any further questions or concerns. Follow up in 2 weeks. This note was generated with Every[employer]ation software. It may contain incorrect words, spelling, and punctuation that were not noted in checking the note before signing.
[2023-01-12 13:06] VITALS: BP 128/68; PULSE 83; RESP 20; TEMP 35.9; BMI 18.8
== END 2023-01-13 23:59 | disposition home or self-care (01) ==
LOC: WC 13:00
PROVIDERS: PCP Internal Medicine; Referring Provider Internal Medicine; Visit Provider Internal Medicine
DX: S81.811A Laceration without foreign body, right lower leg, initial encounter (principal); W22.09XA Striking against other stationary object, initial encounter
CPT/HCPCS: 15271; 99211; Q4186; G0463

== ENCOUNTER 2023-02-09 08:15 | Outpatient (RCR) | payer MEDICARE, SELFPAY ==
[2023-01-14 01:28] VITALS: BP 128/68; PULSE 83; RESP 20; TEMP 35.9; BMI 18.8
[2023-01-19 09:20] VITALS: BP 107/65; PULSE 99; RESP 18; TEMP 35.5; BMI 18.8
--- NOTE | 2023-01-19 12:33 | PN.PCM_ITS ---
History of Present Illness Date of Service: 01/19/23 Chief Complaint: Bilateral Lower Extremity Wound History of Wound: Ms. Lopez is an 87 yo who was referred to the wound center due to nonhealing right leg wound. Sustained wound about 3 weeks ago. 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 Initially seen in the emergency room and had Steri-Strips placed on it however this did not help. Subsequently seen by her church warden and was given DuoDERM however, with the application of DuoDERM wound became infected. Discontinued DuoDERM and has been applying Jerod pads and antibiotic ointment. She is also currently on oral antibiotics. Chronic steroid use with history of recurrent wounds thin skin. She feels well otherwise, no chills, nausea, vomiting or change in bowel habits reported. 01-18-2023 Presents with a new wound which she sustained 2 weeks ago. Very thin skin due to chronic steroid use. Brushed her left leg against the side of the bed subsequently sustaining wound. Has tried some wound care at home without any significant improvement. Progress of Wound: Improving, has had 6 applications of Epifix so far. No new concerns at this time. Objective Data Objective Data Vital Signs: Vital Signs Temp Pulse Resp BP 96 F L 99 18 107/65 01/19/23 09:20 01/19/23 09:20 01/19/23 09:20 01/19/23 09:20 Weight: 120 lb Body Mass Index (BMI) 18.8 Charges/Coding Procedures Integumentary 150xxx-152xx: [id number] Skin sub graft trnk/arm/leg Physical Exam Const alert, oriented x3 and no apparent distress General Appearance: cooperative and comfortable Orientation / Consciousness: oriented to person HEENT hearing grossly normal bilaterally Head and Scalp: normal to inspection Eyes conjunctivae normal General Eye: normal appearance of both eyes Neck full ROM General: normal visual inspection Resp normal respiratory effort Effort and Inspection: able to speak in complete sentences Extremity General Extremity: edema Skin Wounds: wounds noted Neuro oriented x3, CN's II-XII intact bilaterally, moves all extremities and no focal motor deficits Speech: speech normal Gait (Neuro): normal gait Psych mental status grossly normal, thought process normal, cooperative and affect normal Debridement Note Debridement Note Wound debrided: Right lower extremity Type of Debridement: Excisional debridement Anesthesia Used: 5% Lidocaine Gel Depth: Down to and including healthy tissue and in the subcutaneous layer Percentage of wound debrided: 100 Instrument Used: 5mm curette Tissue Removed: Slough and devitalized tissue Severity: Fat Layer Exposed Amount of bleeding with debridement: Mild Bleeding Controlled with: Pressure Patient tolerated procedure: Patient tolerated procedure well Post-Debridement Measurements and Additional Note: Post-Debridement Measurements/Treatment - Nurse 1 - General Ulcer Assessment Start: 01/19/23 09:19 Freq: Status: Active Protocol: JONATHAN Activity Type Activity Date Activity User E-sign Co-sign Detail Recorded Client Recorded Date Recorded By Document 01/19/23 09:20 RB [id number] 01/19/23 09:26 RB 01/19/23 09:20 WC - Today's Visit Information Type of service 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 ) Arrival Mode Ambulatory Transfer Assistance None Patient Identification Verified (Name & Yes ) Patient Requires Transmission-Based No Precautions Height and Weight Body Mass Index (BMI) 18.8 BMI Classification Normal Vital Signs Temperature (97.8 F-99.1 F) 96 F L Temperature Source Temporal Pulse Rate (60-100) 99 Pulse Location Monitor Respiratory Rate (12-18) 18 Respiratory rate source Observation Blood Pressure (90/60-120/80) 107/65 Blood Pressure Mean (mm Hg) 79 Source Monitor Position Semi-Fowlers Blood Pressure Location Left Arm History Since Last Visit- (Skip if this is Patient's initial visit) Have you changed medications since your No last visit? Any new allergies or adverse reactions No Had a fall/change in ADL's that may No increase risk of falls Signs or symptoms of abuse and/or No neglect since last visit Have you been in the hospital since your No last visit? Has dressing in place as prescribed Yes Has compression in place as prescribed No Has offloadiing in place as prescribed No Experienced any changes in pain level or No management Pain Scale: 0-10 Numeric Is Patient Pain Free? Yes - Nurse 1 - General Ulcer Measurement Start: 01/19/23 09:19 Freq: Status: Active Protocol: Activity Type Activity Date Activity User E-sign Co-sign Detail Recorded Client Recorded Date Recorded By Document 01/19/23 09:20 RB [id number] 01/19/23 09:26 RB 01/19/23 09:20 Wound Center Nurse 1 2. LLE laceration -Combined with other wound No -Current Size (cm) - Length 4.2 -Current Size (cm) - Width 1.9 -Current Size (cm) - Depth 0.1 -Total Square Cm 7.98 -Photo Taken Yes -Tunneling No -Undermining/Tunneling No -Circular Undermining No -Exudate Amt Large -Exudate Type Serosanguineous -Wound Margin Distinct, Outline Attached -Granulation Amt Medium (34-66%) -Granulation Quality [place] -Slough/Fibrin Yes -Necrosis Amt Medium (34-66%) -Necrotic Tissue Type Adherent Slough -Structure Exposed N/A -Texture (Genesis-wound Skin Appearance) Assessed -Moisture (Genesis-wound Skin Appearance) Assessed -Color (Genesis-wound Skin Appearance) Assessed -Temperature (Genesis-wound Skin No Abnormality Appearance) (Pt Warm) -Tenderness on Palpation (Genesis-wound No Skin Appearance) -Ulcer Cleansing Wound Cleanser -Foul Odor after Cleansing No -Anesthetic Used 5% Lidocaine Gel #1- RLE LACERATION -Combined with other wound No -Current Size (cm) - Length 1.5 -Current Size (cm) - Width 0.9 -Current Size (cm) - Depth 0.1 -Total Square Cm 1.35 -Photo Taken Yes -Tunneling No -Undermining/Tunneling No -Circular Undermining No -Exudate Amt Medium -Exudate Type Serosanguineous -Wound Margin Distinct, Outline Attached -Granulation Amt Small (1-33%) -Granulation Quality [place] -Slough/Fibrin Yes -Necrosis Amt Large (67-100%) -Necrotic Tissue Type Adherent Slough -Structure Exposed N/A -Texture (Genesis-wound Skin Appearance) Assessed -Moisture (Genesis-wound Skin Appearance) Assessed -Color (Genesis-wound Skin Appearance) Assessed -Temperature (Genesis-wound Skin No Abnormality Appearance) (Pt Warm) -Tenderness on Palpation (Genesis-wound No Skin Appearance) -Ulcer Cleansing Wound Cleanser -Foul Odor after Cleansing No -Anesthetic Used 5% Lidocaine Gel Lower Limb Edema Present Yes Right Calf (cm) 30.5 Right Ankle (cm) 20.6 Left Calf (cm) 31.1 Left Ankle (cm) 19.8 WC - Nurse 2 - General Ulcer CM Notes Start: 01/19/23 09:19 Freq: Status: Active Protocol: Activity Type Activity Date Activity User E-sign Co-sign Detail Recorded Client Recorded Date Recorded By Document 01/19/23 09:49 MW [id number] 01/19/23 10:01 MW 01/19/23 09:49 Wound Center Nurse 2 2. LLE laceration -Time 09:50 -Correct Patient Yes -Correct Side, Site, Position Yes -Correct Procedure Yes -Procedure Performed Yes -Type of Procedure Debridement -Clinical Debridement Subcutaneous -Tissue Removed Subcutaneous -Post Debridement (cm) - Length 4.8 -Post Debridement (cm) - Width 2.0 -Post Debridement (cm) - Depth 0.1 -Total Square (Post) (cm) 9.60 -Area of Debridement (cm) - Length 4.8 -Area of Debridement (cm) - Width 2.0 -Total Square (Area) (cm) 9.60 -Tunneling No -Undermining/Tunneling No -Circular Undermining No -Wound/Ulcer Outcome Not Healed -Ulcer Cleansing Rinsed/ Irrigated with Saline -Foul Odor after Cleansing No -Bioengineered Tissue No -Bleeding Controlled with Pressure -Treatment Response Procedure Tolerated Well -Offloading No -Debridement - Subq, 1st 20sq cm Yes #1- RLE LACERATION -Time 09:51 -Correct Patient Yes -Correct Side, Site, Position Yes -Correct Procedure Yes -Procedure Performed Yes -Type of Procedure Debridement -Clinical Debridement Subcutaneous -Tissue Removed Subcutaneous -Post Debridement (cm) - Length 0.5 -Post Debridement (cm) - Width 0.2 -Post Debridement (cm) - Depth 0.1 -Total Square (Post) (cm) 0.10 -Area of Debridement (cm) - Length 0.5 -Area of Debridement (cm) - Width 0.2 -Total Square (Area) (cm) 0.10 -Tunneling No -Undermining/Tunneling No -Circular Undermining No -Wound/Ulcer Outcome Not Healed -Foul Odor after Cleansing No -Bioengineered Tissue Yes -Type of Bioengineered Tissue Epifix 18mm Disc -Expiration Date 11/15/27 -Product Lot Number [id number] -Percent Used 100 -Lot number of Saline Used [id number] -Bleeding Controlled with Pressure -Treatment Response Procedure Tolerated Well -Offloading No -Debridement - Subq, 1st 20sq cm No -Apply Skin Sub - 1st 25 sq cm - Legs 1 -Epifix 18mm Disc 3 Pain Scale: 0-10 Numeric Is Patient Pain Free? Yes - Nurse 3 - General Ulcer D/C NN Start: 01/19/23 09:19 Freq: Status: Active Protocol: Activity Type Activity Date Activity User E-sign Co-sign Detail Recorded Client Recorded Date Recorded By Document 01/19/23 10:03 MW [id number] 01/19/23 10:04 MW 01/19/23 10:03 Wound Care Center Nurse 3 2. LLE laceration -Ulcer Cleansing Not Cleansed -Foul Odor after Cleansing No -Negative Pressure Wound Therapy N/A -Primary Dressing Applied Mepilex Border -Primary Dressing Covered/Secured with Dry Gauze -Mepilex Border 1 #1- RLE LACERATION -Ulcer Cleansing Not Cleansed -Foul Odor after Cleansing No -Negative Pressure Wound Therapy N/A -Primary Dressing Applied Mepilex Border -Primary Dressing Covered/Secured with Dry Gauze -Mepilex Border 1 Right -Lotion applied to leg before No compression wrap -Compression Wrap Jorge Wrap Left -Lotion applied to leg before No compression wrap -Compression Wrap Jorge Wrap Treatment Response Procedure Tolerated Well Pain Scale: 0-10 Numeric Is Patient Pain Free? Yes Teaching: Wound Center Compression Wraps & Stockings -Person Taught Patient -Teaching Method Discussion -Response to teaching Verbalize understanding WC - Visit Discharge Discharge Condition Stable Ambulatory Status Ambulatory Transportation Private Auto Accompanied by self Medication Reconcilliation completed & No provided to patient/care provider Clinical Summary of Care Provided Yes Additional Wound Wound debrided: Left Lower Extremity Type of Debridement: Excisional debridement Anesthesia Used: 5% Lidocaine Gel Depth: in the subcutaneous layer Percentage of wound debrided: 100 Instrument Used: 5mm curette Tissue Removed: Slough and devitalized tissue Severity: Fat Layer Exposed Amount of bleeding with debridement: Mild Bleeding Controlled with: Pressure Patient tolerated procedure: Patient tolerated procedure well Assessment/Plan Assessment/Plan (1) Wound of right lower extremity: CODE(S): S81.801A - Unspecified open wound, right lower leg, initial encounter QUALIFIERS: Encounter type: subsequent encounter Qualified Code(s): S81.801D - Unspecified open wound, right lower leg, subsequent encounter PLAN: Traumatic, Penetrating (2) Wound of left lower extremity: CODE(S): S81.802A - Unspecified open wound, left lower leg, initial encounter QUALIFIERS: Encounter type: initial encounter Qualified Code(s): S81.802A - Unspecified open wound, left lower leg, initial encounter PLAN: Traumatic, Penetrating (3) group home (current) use of systemic steroids: CODE(S): Z79.52 - group home (current) use of systemic steroids (4) group home current use of anticoagulant: CODE(S): 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 New left lower extremity wound. Improving right lower extremity wound. 7th application of EpiFix done using 100% of product, moistened with hydrogel,covered with [employer] touch and secured with Steri-Strips. Keep covered always, may change outer dressing if soaked. Promogran to left lower extremity. Jorge wraps for edema management. Leg elevation, exercise and compression compliance strongly recommended. Increase protein intake also discussed, she voiced understanding. Her questions were answered and she was advised to call if she has any further questions or concerns. Follow up in 1 week. This note was generated with [employer] dictation software. It may contain incorrect words, spelling, and punctuation that were not noted in checking the note before signing.
[2023-01-26 08:26] VITALS: BP 112/71; PULSE 92; RESP 16; TEMP 36.2; BMI 18.8
--- NOTE | 2023-01-26 09:37 | PCM.WC.PN ---
History of Present Illness Date of Service: 01/26/23 Chief Complaint: Bilateral Lower Extremity Wound History of Wound: Ms. Lopez is an 87 yo who was referred to the wound center due to nonhealing right leg wound. Sustained wound about 3 weeks ago. Vacuum septic cleaner fell on her leg while she was trying to pull on a coat. Initially seen in the emergency room and had Steri-Strips placed on it however this did not help. Subsequently seen by her cherry pitter and was given DuoDERM however, with the application of DuoDERM wound became infected. Discontinued DuoDERM and has been applying Jerod pads and antibiotic ointment. She is also currently on oral antibiotics. Chronic steroid use with history of recurrent wounds thin skin. She feels well otherwise, no chills, nausea, vomiting or change in bowel habits reported. 01-18-2023 Presents with a new wound which she sustained 2 weeks ago. Very thin skin due to chronic steroid use. Brushed her left leg against the side of the bed subsequently sustaining wound. Has tried some wound care at home without any significant improvement. Progress of Wound: Improving, has had 7 applications of Epifix so far. Right lower extremity is healed. Left with some improvement. Objective Data Objective Data Vital Signs: Vital Signs Temp Pulse Resp BP O2 Del Method 97.1 F L 92 16 112/71 Room Air 01/26/23 08:26 01/26/23 08:26 01/26/23 08:26 01/26/23 08:26 01/26/23 08:26 Oxygen Delivery Method Room Air Weight: 120 lb Body Mass Index (BMI) 18.8 Charges/Coding Procedures Integumentary 111xxx-113xx: [id number] Melissa subq tissue 20 sq cm/< Physical Exam Const alert, oriented x3 and no apparent distress General Appearance: cooperative and comfortable Orientation / Consciousness: oriented to person HEENT hearing grossly normal bilaterally Head and Scalp: normal to inspection Eyes conjunctivae normal General Eye: normal appearance of both eyes Neck full ROM General: normal visual inspection Resp normal respiratory effort Effort and Inspection: able to speak in complete sentences Extremity General Extremity: edema Skin Wounds: wounds noted Neuro oriented x3, CN's II-XII intact bilaterally, moves all extremities and no focal motor deficits Speech: speech normal Gait (Neuro): normal gait Psych mental status grossly normal, thought process normal, cooperative and affect normal Debridement Note Debridement Note Wound debrided: Left lower extremity Type of Debridement: Excisional debridement Anesthesia Used: 4% Lidocaine Solution Depth: Down to and including healthy tissue and in the subcutaneous layer Percentage of wound debrided: 100 Instrument Used: 5mm curette Tissue Removed: Slough and devitalized tissue Severity: Fat Layer Exposed Amount of bleeding with debridement: Mild Bleeding Controlled with: Pressure Patient tolerated procedure: Patient tolerated procedure well Post-Debridement Measurements and Additional Note: Post-Debridement Measurements/Treatment - Nurse 1 - General Ulcer Assessment Start: 01/19/23 09:19 Freq: Status: Active Protocol: JONATHAN Activity Type Activity Date Activity User E-sign Co-sign Detail Recorded Client Recorded Date Recorded By Document 01/19/23 09:20 RB [id number] 01/19/23 09:26 RB Document 01/26/23 08:26 KW [id number] 01/26/23 08:38 KW 01/19/23 01/26/23 09:20 08:26 - Today's Visit Information Type of service Follow-up Visit Follow-up Visit (Physician/IMPORT COORDINATOR (Physician/IMPORT COORDINATOR ) ) Arrival Mode Ambulatory Ambulatory Transfer Assistance None Patient Identification Verified (Name & Yes Yes ) Patient Requires Transmission-Based No No Precautions Safety Precautions NA Height and Weight Body Mass Index (BMI) 18.8 18.8 BMI Classification Normal Normal Vital Signs Temperature (97.8 F-99.1 F) 96 F L 97.1 F L Temperature Source Temporal Temporal Pulse Rate (60-100) 99 92 Pulse Location Monitor Monitor Respiratory Rate (12-18) 18 16 Respiratory rate source Observation Observation Oxygen Delivery Method Room Air Blood Pressure (90/60-120/80) 107/65 112/71 Blood Pressure Mean (mm Hg) 79 84 Source Monitor Monitor Position Semi-Fowlers Sitting Blood Pressure Location Left Arm Right Arm History Since Last Visit- (Skip if this is Patient's initial visit) Have you changed medications since your No No last visit? Any new allergies or adverse reactions No No Had a fall/change in ADL's that may No No increase risk of falls Signs or symptoms of abuse and/or No No neglect since last visit Have you been in the hospital since your No No last visit? Has dressing in place as prescribed Yes Yes Has compression in place as prescribed No No Has offloadiing in place as prescribed No No Experienced any changes in pain level or No No management Left Footwear Regular Shoe Right Footwear Regular Shoe Pain Scale: 0-10 Numeric Is Patient Pain Free? Yes Yes WC - Nurse 1 - General Ulcer Measurement Start: 01/19/23 09:19 Freq: Status: Active Protocol: Activity Type Activity Date Activity User E-sign Co-sign Detail Recorded Client Recorded Date Recorded By Document 01/19/23 09:20 RB [id number] 01/19/23 09:26 RB Document 01/26/23 08:26 KW [id number] 01/26/23 08:38 KW 01/19/23 01/26/23 09:20 08:26 Wound Center Nurse 1 2. LLE laceration -Combined with other wound No No -Current Size (cm) - Length 4.2 4.9 -Current Size (cm) - Width 1.9 2.3 -Current Size (cm) - Depth 0.1 0.1 -Total Square Cm 7.98 11.27 -Date of Last Picture (Recall this 01/26/23 field) -Photo Taken Yes Yes -Epithelialization Medium 34-66% -Tunneling No No -Undermining/Tunneling No No -Circular Undermining No No -Exudate Amt Large Small -Exudate Type Serosanguineous Serosanguineous -Wound Margin Distinct, Distinct, Outline Outline Attached Attached -Granulation Amt Medium (34-66%) Small (1-33%) -Granulation Quality [place] Red -Slough/Fibrin Yes -Necrosis Amt Medium (34-66%) Small (1-33%) -Necrotic Tissue Type Adherent Slough Adherent Slough -Structure Exposed N/A -Texture (Genesis-wound Skin Appearance) Assessed Assessed -Moisture (Genesis-wound Skin Appearance) Assessed Assessed,Dry/ Scaly -Color (Genesis-wound Skin Appearance) Assessed Assessed -Temperature (Genesis-wound Skin No Abnormality No Abnormality Appearance) (Pt Warm) (Pt Warm) -Tenderness on Palpation (Genesis-wound No Yes Skin Appearance) -Ulcer Cleansing Wound Cleanser Soap and Water -Foul Odor after Cleansing No No -Anesthetic Used 5% Lidocaine 5% Lidocaine Gel Gel #1- RLE LACERATION -Combined with other wound No -Current Size (cm) - Length 1.5 1.7 -Current Size (cm) - Width 0.9 0.3 -Current Size (cm) - Depth 0.1 0.1 -Total Square Cm 1.35 0.51 -Date of Last Picture (Recall this 01/26/23 field) -Photo Taken Yes Yes -Epithelialization None Present -Tunneling No No -Undermining/Tunneling No No -Circular Undermining No No -Exudate Amt Medium Small -Exudate Type Serosanguineous Serosanguineous -Wound Margin Distinct, Distinct, Outline Outline Attached Attached -Granulation Amt Small (1-33%) None Present (0 %) -Granulation Quality [place] -Slough/Fibrin Yes -Necrosis Amt Large (67-100%) None Present (0 %) -Necrotic Tissue Type Adherent Slough -Structure Exposed N/A -Texture (Genesis-wound Skin Appearance) Assessed Assessed -Moisture (Genesis-wound Skin Appearance) Assessed Assessed -Color (Genesis-wound Skin Appearance) Assessed Erythema -Temperature (Genesis-wound Skin No Abnormality No Abnormality Appearance) (Pt Warm) (Pt Warm) -Tenderness on Palpation (Genesis-wound No Yes Skin Appearance) -Ulcer Cleansing Wound Cleanser Soap and Water -Foul Odor after Cleansing No -Anesthetic Used 5% Lidocaine 5% Lidocaine Gel Gel Lower Limb Edema Present Yes Right Calf (cm) 30.5 Right Ankle (cm) 20.6 Left Calf (cm) 31.1 Left Ankle (cm) 19.8 WC - Nurse 2 - General Ulcer CM Notes Start: 01/19/23 09:19 Freq: Status: Active Protocol: Activity Type Activity Date Activity User E-sign Co-sign Detail Recorded Client Recorded Date Recorded By Document 01/19/23 09:49 MW [id number] 01/19/23 10:01 MW Document 01/26/23 08:49 MW [id number] 01/26/23 08:58 MW 01/19/23 01/26/23 09:49 08:49 Wound Center Nurse 2 2. LLE laceration -Time 09:50 08:51 -Correct Patient Yes Yes -Correct Side, Site, Position Yes Yes -Correct Procedure Yes Yes -Procedure Performed Yes Yes -Type of Procedure Debridement Debridement -Clinical Debridement Subcutaneous Subcutaneous -Tissue Removed Subcutaneous Subcutaneous -Post Debridement (cm) - Length 4.8 3.6 -Post Debridement (cm) - Width 2.0 1.8 -Post Debridement (cm) - Depth 0.1 0.1 -Total Square (Post) (cm) 9.60 6.48 -Area of Debridement (cm) - Length 4.8 3.6 -Area of Debridement (cm) - Width 2.0 1.8 -Total Square (Area) (cm) 9.60 6.48 -Tunneling No No -Undermining/Tunneling No No -Circular Undermining No No -Wound/Ulcer Outcome Not Healed Not Healed -Ulcer Cleansing Rinsed/ Rinsed/ Irrigated with Irrigated with Saline Saline -Foul Odor after Cleansing No No -Bioengineered Tissue No No -Bleeding Controlled with Pressure Pressure -Treatment Response Procedure Procedure Tolerated Well Tolerated Well -Offloading No No -Debridement - Subq, 1st 20sq cm Yes Yes #1- RLE LACERATION -Time 09:51 08:51 -Correct Patient Yes Yes -Correct Side, Site, Position Yes Yes -Correct Procedure Yes Yes -Procedure Performed Yes No -Type of Procedure Debridement -Clinical Debridement Subcutaneous -Tissue Removed Subcutaneous -Post Debridement (cm) - Length 0.5 0 -Post Debridement (cm) - Width 0.2 0 -Post Debridement (cm) - Depth 0.1 0 -Total Square (Post) (cm) 0.10 0 -Area of Debridement (cm) - Length 0.5 -Area of Debridement (cm) - Width 0.2 -Total Square (Area) (cm) 0.10 -Tunneling No No -Undermining/Tunneling No No -Circular Undermining No No -Wound/Ulcer Outcome Not Healed Healed- Epithelialized -Foul Odor after Cleansing No -Bioengineered Tissue Yes -Type of Bioengineered Tissue Epifix 18mm Disc -Expiration Date 11/15/27 -Product Lot Number [id number] -Percent Used 100 -Lot number of Saline Used [id number] -Bleeding Controlled with Pressure -Treatment Response Procedure Tolerated Well -Offloading No -Debridement - Subq, 1st 20sq cm No -Apply Skin Sub - 1st 25 sq cm - Legs 1 -Epifix 18mm Disc 3 Pain Scale: 0-10 Numeric Is Patient Pain Free? Yes Yes WC - Nurse 3 - General Ulcer D/C NN Start: 01/19/23 09:19 Freq: Status: Active Protocol: Activity Type Activity Date Activity User E-sign Co-sign Detail Recorded Client Recorded Date Recorded By Document 01/19/23 10:03 MW [id number] 01/19/23 10:04 MW Document 01/26/23 09:08 DL [id number] 01/26/23 09:10 DL 01/19/23 01/26/23 10:03 09:08 Wound Care Center Nurse 3 2. LLE laceration -Ulcer Cleansing Not Cleansed Rinsed/ Irrigated with Saline -Foul Odor after Cleansing No No -Negative Pressure Wound Therapy N/A -Primary Dressing Applied Mepilex Border NonAdherent Contact Layer, Promogran -Primary Dressing Covered/Secured with Dry Gauze Dry Gauze & Roll Gauze, Secured with Tape -Mepilex Border 1 -Promogran 1 #1- RLE LACERATION -Ulcer Cleansing Not Cleansed Rinsed/ Irrigated with Saline -Foul Odor after Cleansing No No -Negative Pressure Wound Therapy N/A -Primary Dressing Applied Mepilex Border Mepilex Border, NonAdherent Contact Layer -Primary Dressing Covered/Secured with Dry Gauze -Mepilex Border 1 1 Right -Lotion applied to leg before No compression wrap -Compression Wrap Jorge Wrap Jorge Wrap -Other refusing jorge for RLE Left -Lotion applied to leg before No compression wrap -Compression Wrap Jorge Wrap Treatment Response Procedure Procedure Tolerated Well Tolerated Well Pain Scale: 0-10 Numeric Is Patient Pain Free? Yes Yes Teaching: Wound Center Compression Wraps & Stockings -Person Taught Patient -Teaching Method Discussion -Response to teaching Verbalize understanding WC - Visit Discharge Discharge Condition Stable Stable Ambulatory Status Ambulatory Ambulatory Transportation Private Auto Private Auto Accompanied by self Medication Reconcilliation completed & No provided to patient/care provider Clinical Summary of Care Provided Yes Assessment/Plan Assessment/Plan (1) Wound of right lower extremity: CODE(S): S81.801A - Unspecified open wound, right lower leg, initial encounter QUALIFIERS: Encounter type: subsequent encounter Qualified Code(s): S81.801D - Unspecified open wound, right lower leg, subsequent encounter PLAN: Traumatic, Penetrating (2) Wound of left lower extremity: CODE(S): S81.802A - Unspecified open wound, left lower leg, initial encounter QUALIFIERS: Encounter type: initial encounter Qualified Code(s): S81.802A - Unspecified open wound, left lower leg, initial encounter PLAN: Traumatic, Penetrating (3) detention (current) use of systemic steroids: CODE(S): Z79.52 - 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 Right lower extremity is healed. Adaptic and gauze to right lower extremity, may change daily or every other day. Keep area protected. Promogran daily to left lower extremity. Jorge wraps for edema management. Leg elevation, exercise and compression compliance strongly recommended. Increase protein intake also discussed, she voiced understanding. Her questions were answered and she was advised to call if she has any further questions or concerns. Follow up in 1 week. This note was generated with [employer] dictation software. It may contain incorrect words, spelling, and punctuation that were not noted in checking the note before signing.
[2023-02-02 08:54] VITALS: BP 120/57; PULSE 98; RESP 18; TEMP 35.8; BMI 18.8
--- NOTE | 2023-02-02 10:02 | PN.PCM_ITS ---
History of Present Illness Date of Service: 02/02/23 Chief Complaint: Bilateral Lower Extremity Wound History of Wound: Ms. Lpoez is an 87 yo who was referred to the wound center due to nonhealing right leg wound. Sustained wound about 3 weeks ago. Vacuum peanut cleaner fell on her leg while she was trying to pull on a coat. Initially seen in the emergency room and had Steri-Strips placed on it however this did not help. Subsequently seen by her major donor coordinator and was given DuoDERM however, with the application of DuoDERM wound became infected. Discontinued DuoDERM and has been applying Jerod pads and antibiotic ointment. She is also currently on oral antibiotics. Chronic steroid use with history of recurrent wounds thin skin. She feels well otherwise, no chills, nausea, vomiting or change in bowel habits reported. 01-18-2023 Presents with a new wound which she sustained 2 weeks ago. Very thin skin due to chronic steroid use. Brushed her left leg against the side of the bed subsequently sustaining wound. Has tried some wound care at home without any significant improvement. Progress of Wound: Right lower extremity remains healed however now has new surrounding area of dermatitis. Left with good improvement. Objective Data Objective Data Vital Signs: Vital Signs Temp Pulse Resp BP O2 Del Method 96.5 F L 98 18 120/57 L Room Air 02/02/23 08:54 02/02/23 08:54 02/02/23 08:54 02/02/23 08:54 01/26/23 08:26 Oxygen Delivery Method Room Air Weight: 120 lb Body Mass Index (BMI) 18.8 Charges/Coding Procedures Integumentary 111xxx-113xx: [id number] Melissa subq tissue 20 sq cm/< Physical Exam Const alert, oriented x3 and no apparent distress General Appearance: cooperative and comfortable Orientation / Consciousness: oriented to person HEENT hearing grossly normal bilaterally Head and Scalp: normal to inspection Eyes conjunctivae normal General Eye: normal appearance of both eyes Neck full ROM General: normal visual inspection Resp normal respiratory effort Effort and Inspection: able to speak in complete sentences Extremity General Extremity: edema Skin Wounds: wounds noted Neuro oriented x3, CN's II-XII intact bilaterally, moves all extremities and no focal motor deficits Speech: speech normal Gait (Neuro): normal gait Psych mental status grossly normal, thought process normal, cooperative and affect normal Debridement Note Debridement Note Wound debrided: Left lower extremity Type of Debridement: Excisional debridement Anesthesia Used: 5% Lidocaine Gel Depth: Down to and including healthy tissue and in the subcutaneous layer Percentage of wound debrided: 100 Instrument Used: 5mm curette Tissue Removed: Slough and devitalized tissue Severity: Fat Layer Exposed Amount of bleeding with debridement: Mild Bleeding Controlled with: Pressure Patient tolerated procedure: Patient tolerated procedure well Post-Debridement Measurements and Additional Note: Post-Debridement Measurements/Treatment WC - Nurse 1 - General Ulcer Assessment Start: 01/19/23 09:19 Freq: Status: Active Protocol: JONATHAN Activity Type Activity Date Activity User E-sign Co-sign Detail Recorded Client Recorded Date Recorded By Document 01/19/23 09:20 RB [id number] 01/19/23 09:26 RB Document 01/26/23 08:26 KW [id number] 01/26/23 08:38 KW Document 02/02/23 08:54 DL [id number] 02/02/23 08:59 DL 01/19/23 01/26/23 02/02/23 09:20 08:26 08:54 - Today's Visit Information Type of service Follow-up Visit Follow-up Visit Follow-up Visit (Physician/PHYSICIAN SPECIALIST (Physician/PHYSICIAN SPECIALIST (Physician/PHYSICIAN SPECIALIST ) ) ) Arrival Mode Ambulatory Ambulatory Ambulatory Transfer Assistance None None Patient Identification Verified (Name & Yes Yes ) Patient Requires Transmission-Based No No No Precautions Safety Precautions NA Height and Weight Body Mass Index (BMI) 18.8 18.8 18.8 BMI Classification Normal Normal Normal Vital Signs Temperature (97.8 F-99.1 F) 96 F L 97.1 F L 96.5 F L Temperature Source Temporal Temporal Temporal Pulse Rate (60-100) 99 92 98 Pulse Location Monitor Monitor Monitor Respiratory Rate (12-18) 18 16 18 Respiratory rate source Observation Observation Observation Oxygen Delivery Method Room Air Blood Pressure (90/60-120/80) 107/65 112/71 120/57 L Blood Pressure Mean (mm Hg) 79 84 78 Source Monitor Monitor Monitor Position Semi-Fowlers Sitting Blood Pressure Location Left Arm Right Arm History Since Last Visit- (Skip if this is Patient's initial visit) Have you changed medications since your No No No last visit? Any new allergies or adverse reactions No No No Had a fall/change in ADL's that may No No No increase risk of falls Signs or symptoms of abuse and/or No No No neglect since last visit Have you been in the hospital since your No No No last visit? Has dressing in place as prescribed Yes Yes Yes Has compression in place as prescribed No No Yes Has offloadiing in place as prescribed No No N/A Experienced any changes in pain level or No No No management Left Footwear Regular Shoe Right Footwear Regular Shoe Pain Scale: 0-10 Numeric Is Patient Pain Free? Yes Yes Yes WC - Nurse 1 - General Ulcer Measurement Start: 01/19/23 09:19 Freq: Status: Active Protocol: Activity Type Activity Date Activity User E-sign Co-sign Detail Recorded Client Recorded Date Recorded By Document 01/19/23 09:20 RB [id number] 01/19/23 09:26 RB Document 01/26/23 08:26 KW [id number] 01/26/23 08:38 KW Document 02/02/23 08:54 DL [id number] 02/02/23 08:59 DL 01/19/23 01/26/23 02/02/23 09:20 08:26 08:54 Wound Center Nurse 1 #1- RLE LACERATION -Combined with other wound No -Current Size (cm) - Length 1.5 1.7 -Current Size (cm) - Width 0.9 0.3 -Current Size (cm) - Depth 0.1 0.1 -Total Square Cm 1.35 0.51 -Date of Last Picture (Recall this 01/26/23 field) -Photo Taken Yes Yes -Epithelialization None Present -Tunneling No No -Undermining/Tunneling No No -Circular Undermining No No -Exudate Amt Medium Small -Exudate Type Serosanguineous Serosanguineous -Wound Margin Distinct, Distinct, Outline Outline Attached Attached -Granulation Amt Small (1-33%) None Present (0 %) -Granulation Quality [place] -Slough/Fibrin Yes -Necrosis Amt Large (67-100%) None Present (0 %) -Necrotic Tissue Type Adherent Slough -Structure Exposed N/A -Texture (Genesis-wound Skin Appearance) Assessed Assessed -Moisture (Genesis-wound Skin Appearance) Assessed Assessed -Color (Genesis-wound Skin Appearance) Assessed Erythema -Temperature (Genesis-wound Skin No Abnormality No Abnormality Appearance) (Pt Warm) (Pt Warm) -Tenderness on Palpation (Genesis-wound No Yes Skin Appearance) -Ulcer Cleansing Wound Cleanser Soap and Water -Foul Odor after Cleansing No -Anesthetic Used 5% Lidocaine 5% Lidocaine Gel Gel 2. LLE laceration -Combined with other wound No No -Current Size (cm) - Length 4.2 4.9 1.2 -Current Size (cm) - Width 1.9 2.3 1.4 -Current Size (cm) - Depth 0.1 0.1 0.1 -Total Square Cm 7.98 11.27 1.68 -Date of Last Picture (Recall this 01/26/23 field) -Photo Taken Yes Yes -Epithelialization Medium 34-66% -Tunneling No No -Undermining/Tunneling No No -Circular Undermining No No -Exudate Amt Large Small Medium -Exudate Type Serosanguineous Serosanguineous Serosanguineous -Wound Margin Distinct, Distinct, Distinct, Outline Outline Outline Attached Attached Attached -Granulation Amt Medium (34-66%) Small (1-33%) Medium (34-66%) -Granulation Quality [place] -Slough/Fibrin Yes -Necrosis Amt Medium (34-66%) Small (1-33%) Medium (34-66%) -Necrotic Tissue Type Adherent Slough Adherent Slough Adherent Slough -Structure Exposed N/A N/A -Texture (Genesis-wound Skin Appearance) Assessed Assessed Scarring -Moisture (Genesis-wound Skin Appearance) Assessed Assessed,Dry/ Dry/Scaly Scaly -Color (Genesis-wound Skin Appearance) Assessed Assessed Hemosiderin Staining -Temperature (Genesis-wound Skin No Abnormality No Abnormality No Abnormality Appearance) (Pt Warm) (Pt Warm) (Pt Warm) -Tenderness on Palpation (Genesis-wound No Yes No Skin Appearance) -Ulcer Cleansing Wound Cleanser Soap and Water Soap and Water -Foul Odor after Cleansing No No No -Anesthetic Used 5% Lidocaine 5% Lidocaine 5% Lidocaine Gel Gel Gel Lower Limb Edema Present Yes Right Calf (cm) 30.5 Right Ankle (cm) 20.6 Left Calf (cm) 31.1 30.8 Left Ankle (cm) 19.8 20 WC - Nurse 2 - General Ulcer CM Notes Start: 01/19/23 09:19 Freq: Status: Active Protocol: Activity Type Activity Date Activity User E-sign Co-sign Detail Recorded Client Recorded Date Recorded By Document 01/19/23 09:49 MW [id number] 01/19/23 10:01 MW Document 01/26/23 08:49 MW [id number] 01/26/23 08:58 MW Document 02/02/23 09:20 MW [id number] 02/02/23 09:24 MW 01/19/23 01/26/23 02/02/23 09:49 08:49 09:20 Wound Center Nurse 2 #1- RLE LACERATION -Time 09:51 08:51 -Correct Patient Yes Yes -Correct Side, Site, Position Yes Yes -Correct Procedure Yes Yes -Procedure Performed Yes No -Type of Procedure Debridement -Clinical Debridement Subcutaneous -Tissue Removed Subcutaneous -Post Debridement (cm) - Length 0.5 0 -Post Debridement (cm) - Width 0.2 0 -Post Debridement (cm) - Depth 0.1 0 -Total Square (Post) (cm) 0.10 0 -Area of Debridement (cm) - Length 0.5 -Area of Debridement (cm) - Width 0.2 -Total Square (Area) (cm) 0.10 -Tunneling No No -Undermining/Tunneling No No -Circular Undermining No No -Wound/Ulcer Outcome Not Healed Healed- Epithelialized -Foul Odor after Cleansing No -Bioengineered Tissue Yes -Type of Bioengineered Tissue Epifix 18mm Disc -Expiration Date 11/15/27 -Product Lot Number [id number] -Percent Used 100 -Lot number of Saline Used [id number] -Bleeding Controlled with Pressure -Treatment Response Procedure Tolerated Well -Offloading No -Debridement - Subq, 1st 20sq cm No -Apply Skin Sub - 1st 25 sq cm - Legs 1 -Epifix 18mm Disc 3 2. LLE laceration -Time 09:50 08:51 09:21 -Correct Patient Yes Yes Yes -Correct Side, Site, Position Yes Yes Yes -Correct Procedure Yes Yes Yes -Procedure Performed Yes Yes Yes -Type of Procedure Debridement Debridement Debridement -Clinical Debridement Subcutaneous Subcutaneous Subcutaneous -Tissue Removed Subcutaneous Subcutaneous Subcutaneous -Post Debridement (cm) - Length 4.8 3.6 1.9 -Post Debridement (cm) - Width 2.0 1.8 1.1 -Post Debridement (cm) - Depth 0.1 0.1 0.1 -Total Square (Post) (cm) 9.60 6.48 2.09 -Area of Debridement (cm) - Length 4.8 3.6 1.9 -Area of Debridement (cm) - Width 2.0 1.8 1.1 -Total Square (Area) (cm) 9.60 6.48 2.09 -Tunneling No No No -Undermining/Tunneling No No No -Circular Undermining No No No -Wound/Ulcer Outcome Not Healed Not Healed Not Healed -Ulcer Cleansing Rinsed/ Rinsed/ Rinsed/ Irrigated with Irrigated with Irrigated with Saline Saline Saline -Foul Odor after Cleansing No No No -Bioengineered Tissue No No No -Bleeding Controlled with Pressure Pressure Pressure -Treatment Response Procedure Procedure Procedure Tolerated Well Tolerated Well Tolerated Well -Offloading No No No -Debridement - Subq, 1st 20sq cm Yes Yes Yes Pain Scale: 0-10 Numeric Is Patient Pain Free? Yes Yes Yes - Nurse 3 - General Ulcer D/C NN Start: 01/19/23 09:19 Freq: Status: Active Protocol: Activity Type Activity Date Activity User E-sign Co-sign Detail Recorded Client Recorded Date Recorded By Document 01/19/23 10:03 [id number] 01/19/23 10:04 MW Document 01/26/23 09:08 DL [id number] 01/26/23 09:10 DL Document 02/02/23 09:36 RB [id number] 02/02/23 09:37 RB 01/19/23 01/26/23 02/02/23 10:03 09:08 09:36 Wound Care Center Nurse 3 #1- RLE LACERATION -Ulcer Cleansing Not Cleansed Rinsed/ Irrigated with Saline -Foul Odor after Cleansing No No -Negative Pressure Wound Therapy N/A -Primary Dressing Applied Mepilex Border Mepilex Border, NonAdherent Contact Layer -Primary Dressing Covered/Secured with Dry Gauze -Mepilex Border 1 1 2. LLE laceration -Ulcer Cleansing Not Cleansed Rinsed/ Rinsed/ Irrigated with Irrigated with Saline Saline -Foul Odor after Cleansing No No -Negative Pressure Wound Therapy N/A -Primary Dressing Applied Mepilex Border NonAdherent NonAdherent Contact Layer, Contact Layer, Promogran Promogran -Primary Dressing Covered/Secured with Dry Gauze Dry Gauze & Dry Gauze,Dry Roll Gauze, Gauze & Roll Secured with Gauze,Secured Tape with Tape -Mepilex Border 1 -Promogran 1 1 Right -Lotion applied to leg before No compression wrap -Compression Wrap Jorge Wrap Jorge Wrap -Other refusing jorge for RLE Left -Lotion applied to leg before No compression wrap -Compression Wrap Jorge Wrap -Other jorge Treatment Response Procedure Procedure Procedure Tolerated Well Tolerated Well Tolerated Well Pain Scale: 0-10 Numeric Is Patient Pain Free? Yes Yes Yes Teaching: Wound Center Compression Wraps & Stockings -Person Taught Patient -Teaching Method Discussion -Response to teaching Verbalize understanding WC - Visit Discharge Discharge Condition Stable Stable Stable Ambulatory Status Ambulatory Ambulatory Ambulatory Transportation Private Auto Private Auto Private Auto Accompanied by self Medication Reconcilliation completed & No No provided to patient/care provider Clinical Summary of Care Provided Yes Yes Assessment/Plan Assessment/Plan (1) Wound of right lower extremity: CODE(S): S81.801A - Unspecified open wound, right lower leg, initial encounter QUALIFIERS: Encounter type: subsequent encounter Qualified Code(s): S81.801D - Unspecified open wound, right lower leg, subsequent encounter PLAN: Traumatic, Penetrating (2) Wound of left lower extremity: CODE(S): S81.802A - Unspecified open wound, left lower leg, initial encounter QUALIFIERS: Encounter type: initial encounter Qualified Code(s): S81.802A - Unspecified open wound, left lower leg, initial encounter PLAN: Traumatic, Penetrating (3) [facility] (current) use of systemic steroids: CODE(S): Z79.52 - [facility] (current) use of systemic steroids (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 Continue pomogran daily to left lower extremity. No further adaptic to right lower extremity due to area of irritation. Moisturize adequately using Aquaphor healing ointment. Jorge wraps for edema management. Leg elevation, exercise and compression compliance strongly recommended. Her questions were answered and she was advised to call if she has any further questions or concerns. Follow up in 1 week. This note was generated with [employer] dictation software. It may contain incorrect words, spelling, and punctuation that were not noted in checking the note before signing.
[2023-02-09 08:34] VITALS: BP 90/65; PULSE 88; RESP 18; TEMP 36.1; BMI 18.8
--- NOTE | 2023-02-09 09:06 | PCM.WC.PN ---
History of Present Illness Date of Service: 02/09/23 Chief Complaint: Bilateral Lower Extremity Wound History of Wound: Ms. Lopez is an 87 yo who was referred to the wound center due to nonhealing right leg wound. Sustained wound about 3 weeks ago. Vacuum floor cleaner fell on her leg while she was trying to pull on a coat. Initially seen in the emergency room and had Steri-Strips placed on it however this did not help. Subsequently seen by her senior mobile developer and was given DuoDERM however, with the application of DuoDERM wound became infected. Discontinued DuoDERM and has been applying Jerod pads and antibiotic ointment. She is also currently on oral antibiotics. Chronic steroid use with history of recurrent wounds thin skin. She feels well otherwise, no chills, nausea, vomiting or change in bowel habits reported. 01-18-2023 Presents with a new wound which she sustained 2 weeks ago. Very thin skin due to chronic steroid use. Brushed her left leg against the side of the bed subsequently sustaining wound. Has tried some wound care at home without any significant improvement. Progress of Wound: No new concerns at this time. Improving. Objective Data Objective Data Vital Signs: Vital Signs Temp Pulse Resp BP O2 Del Method 97 F L 88 18 90/65 Room Air 02/09/23 08:34 02/09/23 08:34 02/09/23 08:34 02/09/23 08:34 01/26/23 08:26 Oxygen Delivery Method Room Air Weight: 120 lb Body Mass Index (BMI) 18.8 Charges/Coding Procedures Integumentary 111xxx-113xx: [id number] Melissa subq tissue 20 sq cm/< Physical Exam Const alert, oriented x3 and no apparent distress General Appearance: cooperative and comfortable Orientation / Consciousness: oriented to person HEENT hearing grossly normal bilaterally Head and Scalp: normal to inspection Eyes conjunctivae normal General Eye: normal appearance of both eyes Neck full ROM General: normal visual inspection Resp normal respiratory effort Effort and Inspection: able to speak in complete sentences Extremity General Extremity: edema Skin Wounds: wounds noted Neuro oriented x3, CN's II-XII intact bilaterally, moves all extremities and no focal motor deficits Speech: speech normal Gait (Neuro): normal gait Psych mental status grossly normal, thought process normal, cooperative and affect normal Debridement Note Debridement Note Wound debrided: Left lower extremity Type of Debridement: Excisional debridement Anesthesia Used: 5% Lidocaine Gel Depth: Down to and including healthy tissue and in the subcutaneous layer Percentage of wound debrided: 100 Instrument Used: 5mm curette Tissue Removed: Slough and devitalized tissue Severity: Fat Layer Exposed Amount of bleeding with debridement: Mild Bleeding Controlled with: Pressure Patient tolerated procedure: Patient tolerated procedure well Post-Debridement Measurements and Additional Note: Post-Debridement Measurements/Treatment RAYA - Nurse 1 - General Ulcer Assessment Start: 01/19/23 09:19 Freq: Status: Active Protocol: JONATHAN Activity Type Activity Date Activity User E-sign Co-sign Detail Recorded Client Recorded Date Recorded By Document 01/19/23 09:20 RB [id number] 01/19/23 09:26 RB Document 01/26/23 08:26 KW [id number] 01/26/23 08:38 KW Document 02/02/23 08:54 DL [id number] 02/02/23 08:59 DL Document 02/09/23 08:34 RB [id number] 02/09/23 08:36 RB 01/19/23 01/26/23 02/02/23 09:20 08:26 08:54 - Today's Visit Information Type of service Follow-up Visit Follow-up Visit Follow-up Visit (Physician/IMPLEMENTATION DIRECTOR (Physician/IMPLEMENTATION DIRECTOR (Physician/IMPLEMENTATION DIRECTOR ) ) ) Arrival Mode Ambulatory Ambulatory Ambulatory Transfer Assistance None None Patient Identification Verified (Name & Yes Yes ) Patient Requires Transmission-Based No No No Precautions Safety Precautions NA Height and Weight Body Mass Index (BMI) 18.8 18.8 18.8 BMI Classification Normal Normal Normal Vital Signs Temperature (97.8 F-99.1 F) 96 F L 97.1 F L 96.5 F L Temperature Source Temporal Temporal Temporal Pulse Rate (60-100) 99 92 98 Pulse Location Monitor Monitor Monitor Respiratory Rate (12-18) 18 16 18 Respiratory rate source Observation Observation Observation Oxygen Delivery Method Room Air Blood Pressure (90/60-120/80) 107/65 112/71 120/57 L Blood Pressure Mean (mm Hg) 79 84 78 Source Monitor Monitor Monitor Position Semi-Fowlers Sitting Blood Pressure Location Left Arm Right Arm History Since Last Visit- (Skip if this is Patient's initial visit) Have you changed medications since your No No No last visit? Any new allergies or adverse reactions No No No Had a fall/change in ADL's that may No No No increase risk of falls Signs or symptoms of abuse and/or No No No neglect since last visit Have you been in the hospital since your No No No last visit? Has dressing in place as prescribed Yes Yes Yes Has compression in place as prescribed No No Yes Has offloadiing in place as prescribed No No N/A Experienced any changes in pain level or No No No management Left Footwear Regular Shoe Right Footwear Regular Shoe Pain Scale: 0-10 Numeric Is Patient Pain Free? Yes Yes Yes 02/09/23 08:34 WC - Today's Visit Information Type of service Follow-up Visit (Physician/IMPLEMENTATION DIRECTOR ) Arrival Mode Ambulatory Transfer Assistance None Patient Identification Verified (Name & Yes ) Patient Requires Transmission-Based No Precautions Safety Precautions Height and Weight Body Mass Index (BMI) 18.8 BMI Classification Normal Vital Signs Temperature (97.8 F-99.1 F) 97 F L Temperature Source Temporal Pulse Rate (60-100) 88 Pulse Location Monitor Respiratory Rate (12-18) 18 Respiratory rate source Observation Oxygen Delivery Method Blood Pressure (90/60-120/80) 90/65 Blood Pressure Mean (mm Hg) 73 Source Monitor Position Semi-Fowlers Blood Pressure Location Left Arm History Since Last Visit- (Skip if this is Patient's initial visit) Have you changed medications since your No last visit? Any new allergies or adverse reactions No Had a fall/change in ADL's that may No increase risk of falls Signs or symptoms of abuse and/or No neglect since last visit Have you been in the hospital since your No last visit? Has dressing in place as prescribed Yes Has compression in place as prescribed No Has offloadiing in place as prescribed No Experienced any changes in pain level or No management Left Footwear Right Footwear Pain Scale: 0-10 Numeric Is Patient Pain Free? Yes - Nurse 1 - General Ulcer Measurement Start: 01/19/23 09:19 Freq: Status: Active Protocol: Activity Type Activity Date Activity User E-sign Co-sign Detail Recorded Client Recorded Date Recorded By Document 01/19/23 09:20 RB [id number] 01/19/23 09:26 RB Document 01/26/23 08:26 KW [id number] 01/26/23 08:38 KW Document 02/02/23 08:54 DL [id number] 02/02/23 08:59 DL Document 02/09/23 08:34 RB [id number] 02/09/23 08:36 RB 01/19/23 01/26/23 02/02/23 09:20 08:26 08:54 Wound Center Nurse 1 #1- RLE LACERATION -Combined with other wound No -Current Size (cm) - Length 1.5 1.7 -Current Size (cm) - Width 0.9 0.3 -Current Size (cm) - Depth 0.1 0.1 -Total Square Cm 1.35 0.51 -Date of Last Picture (Recall this 01/26/23 field) -Photo Taken Yes Yes -Epithelialization None Present -Tunneling No No -Undermining/Tunneling No No -Circular Undermining No No -Exudate Amt Medium Small -Exudate Type Serosanguineous Serosanguineous -Wound Margin Distinct, Distinct, Outline Outline Attached Attached -Granulation Amt Small (1-33%) None Present (0 %) -Granulation Quality [facility] -Slough/Fibrin Yes -Necrosis Amt Large (67-100%) None Present (0 %) -Necrotic Tissue Type Adherent Slough -Structure Exposed N/A -Texture (Genesis-wound Skin Appearance) Assessed Assessed -Moisture (Genesis-wound Skin Appearance) Assessed Assessed -Color (Genesis-wound Skin Appearance) Assessed Erythema -Temperature (Genesis-wound Skin No Abnormality No Abnormality Appearance) (Pt Warm) (Pt Warm) -Tenderness on Palpation (Genesis-wound No Yes Skin Appearance) -Ulcer Cleansing Wound Cleanser Soap and Water -Foul Odor after Cleansing No -Anesthetic Used 5% Lidocaine 5% Lidocaine Gel Gel 2. LLE laceration -Combined with other wound No No -Current Size (cm) - Length 4.2 4.9 1.2 -Current Size (cm) - Width 1.9 2.3 1.4 -Current Size (cm) - Depth 0.1 0.1 0.1 -Total Square Cm 7.98 11.27 1.68 -Date of Last Picture (Recall this 01/26/23 field) -Photo Taken Yes Yes -Epithelialization Medium 34-66% -Tunneling No No -Undermining/Tunneling No No -Circular Undermining No No -Exudate Amt Large Small Medium -Exudate Type Serosanguineous Serosanguineous Serosanguineous -Wound Margin Distinct, Distinct, Distinct, Outline Outline Outline Attached Attached Attached -Granulation Amt Medium (34-66%) Small (1-33%) Medium (34-66%) -Granulation Quality [facility] [place] [facility] -Slough/Fibrin Yes -Necrosis Amt Medium (34-66%) Small (1-33%) Medium (34-66%) -Necrotic Tissue Type Adherent Slough Adherent Slough Adherent Slough -Structure Exposed N/A N/A -Texture (Genesis-wound Skin Appearance) Assessed Assessed Scarring -Moisture (Genesis-wound Skin Appearance) Assessed Assessed,Dry/ Dry/Scaly Scaly -Color (Genesis-wound Skin Appearance) Assessed Assessed Hemosiderin Staining -Temperature (Genesis-wound Skin No Abnormality No Abnormality No Abnormality Appearance) (Pt Warm) (Pt Warm) (Pt Warm) -Tenderness on Palpation (Genesis-wound No Yes No Skin Appearance) -Ulcer Cleansing Wound Cleanser Soap and Water Soap and Water -Foul Odor after Cleansing No No No -Anesthetic Used 5% Lidocaine 5% Lidocaine 5% Lidocaine Gel Gel Gel Lower Limb Edema Present Yes Right Calf (cm) 30.5 Right Ankle (cm) 20.6 Left Calf (cm) 31.1 30.8 Left Ankle (cm) 19.8 20 02/09/23 08:34 Wound Center Nurse 1 #1- RLE LACERATION -Combined with other wound -Current Size (cm) - Length -Current Size (cm) - Width -Current Size (cm) - Depth -Total Square Cm -Date of Last Picture (Recall this field) -Photo Taken -Epithelialization -Tunneling -Undermining/Tunneling -Circular Undermining -Exudate Amt -Exudate Type -Wound Margin -Granulation Amt -Granulation Quality -Slough/Fibrin -Necrosis Amt -Necrotic Tissue Type -Structure Exposed -Texture (Genesis-wound Skin Appearance) -Moisture (Genesis-wound Skin Appearance) -Color (Genesis-wound Skin Appearance) -Temperature (Genesis-wound Skin Appearance) -Tenderness on Palpation (Genesis-wound Skin Appearance) -Ulcer Cleansing -Foul Odor after Cleansing -Anesthetic Used 2. LLE laceration -Combined with other wound No -Current Size (cm) - Length 0.1 -Current Size (cm) - Width 0.1 -Current Size (cm) - Depth 0.1 -Total Square Cm 0.01 -Date of Last Picture (Recall this field) -Photo Taken Yes -Epithelialization -Tunneling No -Undermining/Tunneling No -Circular Undermining No -Exudate Amt Medium -Exudate Type Serosanguineous -Wound Margin Distinct, Outline Attached -Granulation Amt Medium (34-66%) -Granulation Quality [facility] -Slough/Fibrin Yes -Necrosis Amt Small (1-33%) -Necrotic Tissue Type Adherent Slough -Structure Exposed N/A -Texture (Genesis-wound Skin Appearance) Assessed -Moisture (Genesis-wound Skin Appearance) Assessed -Color (Genesis-wound Skin Appearance) Assessed -Temperature (Genesis-wound Skin No Abnormality Appearance) (Pt Warm) -Tenderness on Palpation (Genesis-wound No Skin Appearance) -Ulcer Cleansing Wound Cleanser -Foul Odor after Cleansing No -Anesthetic Used 5% Lidocaine Gel Lower Limb Edema Present Right Calf (cm) Right Ankle (cm) Left Calf (cm) Left Ankle (cm) WC - Nurse 2 - General Ulcer CM Notes Start: 01/19/23 09:19 Freq: Status: Active Protocol: Activity Type Activity Date Activity User E-sign Co-sign Detail Recorded Client Recorded Date Recorded By Document 01/19/23 09:49 MW [id number] 01/19/23 10:01 MW Document 01/26/23 08:49 MW [id number] 01/26/23 08:58 MW Document 02/02/23 09:20 MW [id number] 02/02/23 09:24 MW Document 02/09/23 08:44 MW [id number] 02/09/23 08:47 MW 01/19/23 01/26/23 02/02/23 09:49 08:49 09:20 Wound Center Nurse 2 #1- RLE LACERATION -Time 09:51 08:51 -Correct Patient Yes Yes -Correct Side, Site, Position Yes Yes -Correct Procedure Yes Yes -Procedure Performed Yes No -Type of Procedure Debridement -Clinical Debridement Subcutaneous -Tissue Removed Subcutaneous -Post Debridement (cm) - Length 0.5 0 -Post Debridement (cm) - Width 0.2 0 -Post Debridement (cm) - Depth 0.1 0 -Total Square (Post) (cm) 0.10 0 -Area of Debridement (cm) - Length 0.5 -Area of Debridement (cm) - Width 0.2 -Total Square (Area) (cm) 0.10 -Tunneling No No -Undermining/Tunneling No No -Circular Undermining No No -Wound/Ulcer Outcome Not Healed Healed- Epithelialized -Foul Odor after Cleansing No -Bioengineered Tissue Yes -Type of Bioengineered Tissue Epifix 18mm Disc -Expiration Date 11/15/27 -Product Lot Number [id number] -Percent Used 100 -Lot number of Saline Used [id number] -Bleeding Controlled with Pressure -Treatment Response Procedure Tolerated Well -Offloading No -Debridement - Subq, 1st 20sq cm No -Apply Skin Sub - 1st 25 sq cm - Legs 1 -Epifix 18mm Disc 3 2. LLE laceration -Time 09:50 08:51 09:21 -Correct Patient Yes Yes Yes -Correct Side, Site, Position Yes Yes Yes -Correct Procedure Yes Yes Yes -Procedure Performed Yes Yes Yes -Type of Procedure Debridement Debridement Debridement -Clinical Debridement Subcutaneous Subcutaneous Subcutaneous -Tissue Removed Subcutaneous Subcutaneous Subcutaneous -Post Debridement (cm) - Length 4.8 3.6 1.9 -Post Debridement (cm) - Width 2.0 1.8 1.1 -Post Debridement (cm) - Depth 0.1 0.1 0.1 -Total Square (Post) (cm) 9.60 6.48 2.09 -Area of Debridement (cm) - Length 4.8 3.6 1.9 -Area of Debridement (cm) - Width 2.0 1.8 1.1 -Total Square (Area) (cm) 9.60 6.48 2.09 -Tunneling No No No -Undermining/Tunneling No No No -Circular Undermining No No No -Wound/Ulcer Outcome Not Healed Not Healed Not Healed -Ulcer Cleansing Rinsed/ Rinsed/ Rinsed/ Irrigated with Irrigated with Irrigated with Saline Saline Saline -Foul Odor after Cleansing No No No -Bioengineered Tissue No No No -Bleeding Controlled with Pressure Pressure Pressure -Treatment Response Procedure Procedure Procedure Tolerated Well Tolerated Well Tolerated Well -Offloading No No No -Debridement - Subq, 1st 20sq cm Yes Yes Yes Pain Scale: 0-10 Numeric Is Patient Pain Free? Yes Yes Yes 02/09/23 08:44 Wound Center Nurse 2 #1- RLE LACERATION -Time -Correct Patient -Correct Side, Site, Position -Correct Procedure -Procedure Performed -Type of Procedure -Clinical Debridement -Tissue Removed -Post Debridement (cm) - Length -Post Debridement (cm) - Width -Post Debridement (cm) - Depth -Total Square (Post) (cm) -Area of Debridement (cm) - Length -Area of Debridement (cm) - Width -Total Square (Area) (cm) -Tunneling -Undermining/Tunneling -Circular Undermining -Wound/Ulcer Outcome -Foul Odor after Cleansing -Bioengineered Tissue -Type of Bioengineered Tissue -Expiration Date -Product Lot Number -Percent Used -Lot number of Saline Used -Bleeding Controlled with -Treatment Response -Offloading -Debridement - Subq, 20sq cm -Apply Skin Sub - 1st 25 sq cm - Legs -Epifix 18mm Disc 2. LLE laceration -Time 08:44 -Correct Patient Yes -Correct Side, Site, Position Yes -Correct Procedure Yes -Procedure Performed Yes -Type of Procedure Debridement -Clinical Debridement Subcutaneous -Tissue Removed Subcutaneous -Post Debridement (cm) - Length 1.5 -Post Debridement (cm) - Width 0.7 -Post Debridement (cm) - Depth 0.1 -Total Square (Post) (cm) 1.05 -Area of Debridement (cm) - Length 1.5 -Area of Debridement (cm) - Width 0.7 -Total Square (Area) (cm) 1.05 -Tunneling No -Undermining/Tunneling No -Circular Undermining No -Wound/Ulcer Outcome Not Healed -Ulcer Cleansing Rinsed/ Irrigated with Saline -Foul Odor after Cleansing No -Bioengineered Tissue No -Bleeding Controlled with Pressure -Treatment Response Procedure Tolerated Well -Offloading No -Debridement - Subq, 20sq cm Yes Pain Scale: 0-10 Numeric Is Patient Pain Free? Yes - Nurse 3 - General Ulcer D/C NN Start: 01/19/23 09:19 Freq: Status: Active Protocol: Activity Type Activity Date Activity User E-sign Co-sign Detail Recorded Client Recorded Date Recorded By Document 01/19/23 10:03 MW [id number] 01/19/23 10:04 MW Document 01/26/23 09:08 DL [id number] 01/26/23 09:10 DL Document 02/02/23 09:36 RB [id number] 02/02/23 09:37 RB Document 02/09/23 08:56 RB [id number] 02/09/23 08:57 RB 01/19/23 01/26/23 02/02/23 10:03 09:08 09:36 Wound Care Center Nurse 3 #1- RLE LACERATION -Ulcer Cleansing Not Cleansed Rinsed/ Irrigated with Saline -Foul Odor after Cleansing No No -Negative Pressure Wound Therapy N/A -Primary Dressing Applied Mepilex Border Mepilex Border, NonAdherent Contact Layer -Primary Dressing Covered/Secured with Dry Gauze -Mepilex Border 1 1 2. LLE laceration -Ulcer Cleansing Not Cleansed Rinsed/ Rinsed/ Irrigated with Irrigated with Saline Saline -Foul Odor after Cleansing No No -Negative Pressure Wound Therapy N/A -Primary Dressing Applied Mepilex Border NonAdherent NonAdherent Contact Layer, Contact Layer, Promogran Promogran -Primary Dressing Covered/Secured with Dry Gauze Dry Gauze & Dry Gauze,Dry Roll Gauze, Gauze & Roll Secured with Gauze,Secured Tape with Tape -Mepilex Border 1 -Promogran 1 1 Right -Lotion applied to leg before No compression wrap -Compression Wrap Jorge Wrap Jorge Wrap -Other refusing jorge for RLE Left -Lotion applied to leg before No compression wrap -Compression Wrap Jorge Wrap -Other jorge Treatment Response Procedure Procedure Procedure Tolerated Well Tolerated Well Tolerated Well Pain Scale: 0-10 Numeric Is Patient Pain Free? Yes Yes Yes Teaching: Wound Center Compression Wraps & Stockings -Person Taught Patient -Teaching Method Discussion -Response to teaching Verbalize understanding WC - Visit Discharge Discharge Condition Stable Stable Stable Ambulatory Status Ambulatory Ambulatory Ambulatory Transportation Private Auto Private Auto Private Auto Accompanied by self Medication Reconcilliation completed & No No provided to patient/care provider Clinical Summary of Care Provided Yes Yes Notes: 02/09/23 08:56 Wound Care Center Nurse 3 #1- RLE LACERATION -Ulcer Cleansing -Foul Odor after Cleansing -Negative Pressure Wound Therapy -Primary Dressing Applied -Primary Dressing Covered/Secured with -Mepilex Border 2. LLE laceration -Ulcer Cleansing Rinsed/ Irrigated with Saline -Foul Odor after Cleansing -Negative Pressure Wound Therapy -Primary Dressing Applied Mepilex Border, NonAdherent Contact Layer, Promogran -Primary Dressing Covered/Secured with -Mepilex Border 1 -Promogran 1 Right -Lotion applied to leg before compression wrap -Compression Wrap -Other Left -Lotion applied to leg before compression wrap -Compression Wrap -Other Treatment Response Procedure Tolerated Well Pain Scale: 0-10 Numeric Is Patient Pain Free? Yes Teaching: Wound Center Compression Wraps & Stockings -Person Taught -Teaching Method -Response to teaching WC - Visit Discharge Discharge Condition Stable Ambulatory Status Ambulatory Transportation Private Auto Accompanied by Medication Reconcilliation completed & No provided to patient/care provider Clinical Summary of Care Provided Yes Notes: jorge to RLE Assessment/Plan Assessment/Plan (1) Wound of left lower extremity: CODE(S): S81.802A - Unspecified open wound, left lower leg, initial encounter QUALIFIERS: Encounter type: initial encounter Qualified Code(s): S81.802A - Unspecified open wound, left lower leg, initial encounter PLAN: Traumatic, Penetrating (2) Wound of right lower extremity: CODE(S): S81.801A - Unspecified open wound, right lower leg, initial encounter QUALIFIERS: Encounter type: subsequent encounter Qualified Code(s): S81.801D - Unspecified open wound, right lower leg, subsequent encounter PLAN: Traumatic, Penetrating (3) intermediate (current) use of systemic steroids: CODE(S): Z79.52 - intermediate (current) use of systemic steroids (4) intermediate current use of anticoagulant: CODE(S): Z79.01 - founder and president (current) use of anticoagulants PLAN: Plan Debridement done as documented above, procedure was well-tolerated. Continue promogran daily to left lower extremity. Moisturize adequately using Aquaphor healing ointment. Jorge wraps for edema management. Leg elevation, exercise and compression compliance strongly recommended. Her questions were answered and she was advised to call if she has any further questions or concerns. Follow up in 1 week. This note was generated with [employer] software. It may contain incorrect words, spelling, and punctuation that were not noted in checking the note before signing.
== END 2023-02-13 23:59 | disposition home or self-care (01) ==
LOC: WC 08:15
PROVIDERS: PCP Internal Medicine; Referring Provider Internal Medicine; Visit Provider Internal Medicine
DX: S81.811A Laceration without foreign body, right lower leg, initial encounter (principal); W20.8XXA Other cause of strike by thrown, projected or falling object, initial encounter; Z79.52 Long term (current) use of systemic steroids; S81.812A Laceration without foreign body, left lower leg, initial encounter; W22.03XA Walked into furniture, initial encounter
CPT/HCPCS: 11042; 15271; Q4186

== ENCOUNTER 2023-02-16 09:20 | Outpatient (RCR) | payer MEDICARE, SELFPAY ==
[2023-02-14 00:19] VITALS: BP 90/65; PULSE 88; RESP 18; TEMP 36.1; BMI 18.8
[2023-02-16 08:50] VITALS: BP 92/41; PULSE 70; RESP 16; TEMP 35.5; BMI 18.8
--- NOTE | 2023-02-16 12:35 | PCM.WC.PN ---
History of Present Illness Date of Service: 02/16/23 Chief Complaint: Bilateral Lower Extremity Wound History of Wound: Ms. Lopez is an 87 yo who was referred to the wound center due to nonhealing right leg wound. Sustained wound about 3 weeks ago. Vacuum curtain cleaner fell on her leg while she was trying to pull on a coat. Initially seen in the emergency room and had Steri-Strips placed on it however this did not help. 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 Discontinued DuoDERM and has been applying Jerod pads and antibiotic ointment. She is also currently on oral antibiotics. Chronic steroid use with history of recurrent wounds thin skin. She feels well otherwise, no chills, nausea, vomiting or change in bowel habits reported. 01-18-2023 Presents with a new wound which she sustained 2 weeks ago. Very thin skin due to chronic steroid use. Brushed her left leg against the side of the bed subsequently sustaining wound. Has tried some wound care at home without any significant improvement. Progress of Wound: No new concerns at this time. Very minimal area present. She has not been using her compression as recommended. Objective Data Objective Data Vital Signs: Vital Signs Temp Pulse Resp BP O2 Del Method 96 F L 70 16 92/41 L Room Air 02/16/23 08:50 02/16/23 08:50 02/16/23 08:50 02/16/23 08:50 02/16/23 08:50 Oxygen Delivery Method Room Air Weight: 120 lb Body Mass Index (BMI) 18.8 Charges/Coding Visit Charges Office Visits / Consults: 66405 OV L3 Est Physical Exam Const alert, oriented x3 and no apparent distress General Appearance: cooperative and comfortable Orientation / Consciousness: oriented to person HEENT hearing grossly normal bilaterally Head and Scalp: normal to inspection Eyes conjunctivae normal General Eye: normal appearance of both eyes Neck full ROM General: normal visual inspection Resp normal respiratory effort Effort and Inspection: able to speak in complete sentences Extremity General Extremity: edema Neuro oriented x3, CN's II-XII intact bilaterally, moves all extremities and no focal motor deficits Speech: speech normal Gait (Neuro): normal gait Psych mental status grossly normal, thought process normal, cooperative and affect normal Debridement Note Debridement Note Post-Debridement Measurements and Additional Note: Post-Debridement Measurements/Treatment WC - Nurse 1 - General Ulcer Assessment Start: 02/16/23 08:50 Freq: Status: Active Protocol: JEAN-CLAUDE Activity Type Activity Date Activity User E-sign Co-sign Detail Recorded Client Recorded Date Recorded By Document 02/16/23 08:50 [facility] [id number] 02/16/23 08:53 [facility] 02/16/23 08:50 - Today's Visit Information Type of service Follow-up Visit (Physician/GUN STOCK CHECKER ) Arrival Mode Ambulatory Transfer Assistance None Patient Identification Verified (Name & Yes ) Patient Requires Transmission-Based No Precautions Height and Weight Body Mass Index (BMI) 18.8 BMI Classification Normal Vital Signs Temperature (97.8 F-99.1 F) 96 F L Temperature Source Temporal Pulse Rate (60-100) 70 Pulse Location Monitor Respiratory Rate (12-18) 16 Respiratory rate source Observation Oxygen Delivery Method Room Air Blood Pressure (90/60-120/80) 92/41 L Blood Pressure Mean (mm Hg) 58 Source Monitor Position Sitting Blood Pressure Location Right Arm History Since Last Visit- (Skip if this is Patient's initial visit) Have you changed medications since your No last visit? Any new allergies or adverse reactions No Had a fall/change in ADL's that may No increase risk of falls Signs or symptoms of abuse and/or No neglect since last visit Have you been in the hospital since your No last visit? Has dressing in place as prescribed Yes Has compression in place as prescribed No Has offloadiing in place as prescribed N/A Experienced any changes in pain level or No management Left Footwear Regular Shoe Right Footwear Regular Shoe Pain Scale: 0-10 Numeric Is Patient Pain Free? Yes - Nurse 1 - General Ulcer Measurement Start: 02/16/23 08:50 Freq: Status: Active Protocol: Activity Type Activity Date Activity User E-sign Co-sign Detail Recorded Client Recorded Date Recorded By Document 02/16/23 08:50 [facility] [id number] 02/16/23 08:53 [facility] 02/16/23 08:50 Wound Center Nurse 1 2. LLE laceration -Combined with other wound No -Current Size (cm) - Length 0.1 -Current Size (cm) - Width 0.1 -Current Size (cm) - Depth 0.1 -Total Square Cm 0.01 -Epithelialization Large 67-100% -Tunneling No -Undermining/Tunneling No -Circular Undermining No -Exudate Amt None Present -Wound Margin Flat & Intact -Slough/Fibrin Yes -Necrotic Tissue Type Eschar -Texture (Genesis-wound Skin Appearance) Assessed, Scarring -Moisture (Genesis-wound Skin Appearance) Assessed,Dry/ Scaly -Color (Genesis-wound Skin Appearance) Assessed -Temperature (Genesis-wound Skin No Abnormality Appearance) (Pt Warm) -Tenderness on Palpation (Genesis-wound No Skin Appearance) -Ulcer Cleansing Rinsed/ Irrigated with Saline -Foul Odor after Cleansing No -Anesthetic Used 5% Lidocaine Gel Lower Limb Edema Present Yes Left Calf (cm) 31 Left Ankle (cm) 20.5 WC - Nurse 2 - General Ulcer CM Notes Start: 02/16/23 08:50 Freq: Status: Active Protocol: Activity Type Activity Date Activity User E-sign Co-sign Detail Recorded Client Recorded Date Recorded By Document 02/16/23 09:21 MW [id number] 02/16/23 09:22 MW 02/16/23 09:21 Wound Center Nurse 2 2. LLE laceration -Time 09:21 -Correct Patient Yes -Correct Side, Site, Position Yes -Correct Procedure Yes -Procedure Performed No -Post Debridement (cm) - Length 0 -Post Debridement (cm) - Width 0 -Total Square (Post) (cm) 0 -Tunneling No -Undermining/Tunneling No -Circular Undermining No -Wound/Ulcer Outcome Healed- Epithelialized Pain Scale: 0-10 Numeric Is Patient Pain Free? Yes - Nurse 3 - General Ulcer D/C NN Start: 02/16/23 08:50 Freq: Status: Active Protocol: Activity Type Activity Date Activity User E-sign Co-sign Detail Recorded Client Recorded Date Recorded By Document 02/16/23 09:26 MW [id number] 02/16/23 09:28 MW 02/16/23 09:26 Wound Care Center Nurse 3 2. LLE laceration -Ulcer Cleansing Rinsed/ Irrigated with Saline -Foul Odor after Cleansing No -Negative Pressure Wound Therapy N/A -Primary Dressing Applied Mepilex Border, NonAdherent Contact Layer, Promogran -Primary Dressing Covered/Secured with Dry Gauze -Mepilex Border 1 -Promogran 1 Treatment Response Procedure Tolerated Well Pain Scale: 0-10 Numeric Is Patient Pain Free? Yes Teaching: Wound Center Discharge Instructions -Person Taught Patient -Teaching Method Discussion -Response to teaching Verbalize understanding WC - Visit Discharge Discharge Condition Stable Ambulatory Status Ambulatory Transportation Private Auto Accompanied by self Medication Reconcilliation completed & No provided to patient/care provider Clinical Summary of Care Provided Yes Notes: healed discharged from clinic Assessment/Plan Assessment/Plan (1) Wound of left lower extremity: CODE(S): S81.802A - Unspecified open wound, left lower leg, initial encounter QUALIFIERS: Encounter type: initial encounter Qualified Code(s): S81.802A - Unspecified open wound, left lower leg, initial encounter PLAN: Traumatic, Penetrating (2) Wound of right lower extremity: CODE(S): S81.801A - Unspecified open wound, right lower leg, initial encounter QUALIFIERS: Encounter type: subsequent encounter Qualified Code(s): S81.801D - Unspecified open wound, right lower leg, subsequent encounter PLAN: Traumatic, Penetrating (3) longterm (current) use of systemic steroids: CODE(S): Z79.52 - technician terminal and repeater (current) use of systemic steroids (4) longterm current use of anticoagulant: CODE(S): Z79.01 - technician terminal and repeater (current) use of anticoagulants PLAN: Plan Very minimal area left. No debridement completed today. Promogran daily with adaptic over top x 2 weeks. Jorge wraps for edema management. Leg elevation, exercise and compression compliance strongly recommended. Her questions were answered and she was advised to call if she has any further questions or concerns. Discharge from the wound center. This note was generated with [employer] dictation software. It may contain incorrect words, spelling, and punctuation that were not noted in checking the note before signing.
== END 2023-02-17 14:58 | disposition home or self-care (01) ==
LOC: WC 09:20
PROVIDERS: PCP Internal Medicine; Referring Provider Internal Medicine; Visit Provider Internal Medicine
DX: S81.832A Puncture wound without foreign body, left lower leg, initial encounter (principal); W20.8XXA Other cause of strike by thrown, projected or falling object, initial encounter; Z79.52 Long term (current) use of systemic steroids; S81.801A Unspecified open wound, right lower leg, initial encounter; W22.03XA Walked into furniture, initial encounter
CPT/HCPCS: 99213; G0463

== ENCOUNTER 2024-06-13 18:17 | Inpatient (IN) | payer MEDICARE, SELFPAY ==
[2024-06-13 18:17] VITALS: BP 91/79; PULSE 117; RESP 19; TEMP 36.4; O2SAT 90
[2024-06-13 18:19] VITALS: BMI 19.7
--- NOTE | 2024-06-13 18:30 | ED.RN ---
PT FELL ONTO CONCRETE. LOST HER FOOTING AT AN UNFAMILIAR HOME SHE WAS VISITING. DENIES LOC. PT HIT HER HEAD AND C/O RIGHT HIP PAIN AND KNEE PAIN. FULL SENSATION IN TACT. NEG SHORTENING OR ROTATION.
--- NOTE | 2024-06-13 19:14 | RAD_ITS ---
EXAM: XR RIGHT FEMUR, 2 VIEWS CLINICAL INDICATION: Trauma, pain TECHNIQUE: Frontal and lateral views of the right femur. COMPARISON: 07/23/2012. FINDINGS: BONES/JOINTS: Acute fracture of the right superior pubic ramus/right symphysis pubis junction. Suspicious acute incomplete fracture of the right inferior pubic ramus. Oblique views will help. Preservation of the joint space. No sclerotic or destructive changes observed. SOFT TISSUES: Unremarkable. No soft tissue swelling or gas. No radiopaque foreign body. RAD/Femur Min 2 Views IMPRESSION: 1. Acute fracture of the right superior pubic ramus/junction with the symphysis pubis and suspicious acute incomplete fracture of the right inferior pubic ramus. Oblique views of the right hip will be helpful. 2. Intact right metallic hip arthroplasty and unchanged. 3. No suspicious acute fracture or dislocation of the right femur. Electronically Signed: Arya Yao MD at 20:37 EST ,
--- NOTE | 2024-06-13 19:14 | CT_ITS ---
EXAM: CT CERVICAL SPINE WITHOUT INTRAVENOUS CONTRAST CLINICAL INDICATION: Trauma injury. TECHNIQUE: Helically acquired images were obtained of the cervical spine without intravenous contrast. 2D reformatted images were reviewed. This CT exam was performed using one or more of the following dose reduction techniques: automated exposure control, adjustment of the mA and/or kV according to patient size, and/or use of iterative reconstruction technique. RADIATION DOSE: CTDIvol = 13.51 mGy, DLP = 301.07 mGy-cm COMPARISON: No relevant prior studies available. FINDINGS: VERTEBRAE: Mild dextroscoliosis of the cervical spine. Mild degenerative anterolisthesis of C4 on C5. Minimal degenerative retrolisthesis of C7 on T1. No suspicious acute fractures of the vertebral bodies and posterior osseous elements. Pronounced left C4-C5 degenerative facet arthropathy. No significant facet arthropathy and remaining cervical facet joints. No discrete lytic or blastic abnormality. DISCS/SPINAL CANAL/NEURAL FORAMINA: Pronounced C4-C5 disc space height narrowing. Normal remaining cervical disc space heights. Minimal intradiscal calcifications at C2-C3, C3-C4 and C7-T1 disc space levels. SOFT TISSUES: Soft tissue thickening with calcifications behind the odontoid process due to CPPD arthropathy. No prevertebral soft tissue swelling. LYMPH NODES: Unremarkable. No cervical adenopathy. LUNG APICES: 4 mm pulmonary nodule in the right upper lobe with slight spiculated borders. THYROID GLAND: AT least 2 hypodense nodules in the right thyroid lobe measuring 1.1 x [address]/Spine Cervical without Contras IMPRESSION: 1. No CT evidence of acute fractures of the cervical spine, craniocervical junction and cervicothoracic junction. 2. Pronounced C4-C5 disc space height narrowing with mild degenerative anterolisthesis of C4 on C5. 3. Minimal degenerative anterolisthesis of C7 on T1. 4. Pronounced left C4-C5 degenerative facet arthropathy. 5. 4 mm pulmonary nodule in the right lung apex. Fleischner Society Guidelines for low-risk or high-risk patients recommend that one should consider chest CT at 12 months due to the morphology and/or location of this nodule. 6. At least 2 hypodense nodules in the right thyroid lobe. They measure 1.1 x 1 cm and 1.2 x 0.9 cm. ACR White Paper guidelines (Hector JK, et al. JACR 2015;12(2):143-50) suggest no follow-up is necessary. Electronically Signed: Arya Yao MD at 20:26 EST ,
--- NOTE | 2024-06-13 19:14 | RAD_ITS ---
EXAM: XR PELVIS, 1 OR 2 VIEWS CLINICAL INDICATION: Trauma, pain TECHNIQUE: Frontal view of the pelvis. COMPARISON: 07/23/2012. FINDINGS: BONES/JOINTS: Acute fracture of the right superior pubic ramus/junction with the right upper symphysis pubis. Suspicious acute incomplete fracture in the upper surface of the right inferior pubic ramus. Intact bilateral metallic hip arthroplasties. No destructive or sclerotic lesions. Note that overlapping bowel shadows may however obscure fine detail. Sacroiliac joints are unremarkable. SOFT TISSUES: Unremarkable. No soft tissue swelling or gas. RAD/Pelvis 1 or 2 Views IMPRESSION: 1. Acute incomplete fracture of the right superior ramus extending to the right upper symphysis pubis. 2. Suspicious acute incomplete fracture in the upper surface of the right inferior pubic ramus. 3. No acute fracture or dislocation of the bilateral metallic hip arthroplasties. Left metallic hip arthroplasty was not present on 07/23/2012 Electronically Signed: Arya Yao MD at 20:39 EST ,
--- NOTE | 2024-06-13 19:14 | CT_ITS ---
EXAM: CT HEAD WITHOUT INTRAVENOUS CONTRAST CLINICAL INDICATION: Trauma TECHNIQUE: Multiple axial images were obtained of the head without intravenous contrast. This CT exam was performed using one or more of the following dose reduction techniques: automated exposure control, adjustment of the mA and/or kV according to patient size, and/or use of iterative reconstruction technique. RADIATION DOSE: CTDIvol = 44.99 mGy, DLP = 846.73 mGy-cm COMPARISON: No relevant prior studies available. FINDINGS: BRAIN AND EXTRA-AXIAL SPACES: Unremarkable. No intra- or extra-axial hemorrhage. No evidence of acute infarct. No intracranial mass or mass effect. There is preservation of the barrientos/white matter interface. Posterior fossa structures are unremarkable. Ventricles are appropriate for age. No hydrocephalus. Basal cisterns are patent. BONES/JOINTS: Unremarkable. No discrete lytic or blastic abnormalities. VASCULATURE: Tubular calcifications in the cavernous segments of the internal carotid arteries. SINUSES: Unremarkable as visualized. Clear. MASTOID AIR CELLS: Unremarkable. Clear. ORBITS: Visualized globes, extraocular muscles, optic nerves and retrobulbar fat appear unremarkable. CT/Brain/Head without Contrast IMPRESSION: No acute findings in the head/brain. Electronically Signed: Arya Yao MD at 20:19 EST ,
--- NOTE | 2024-06-13 19:45 | ED.VIS.FALL ---
HPI HPI - Fall History of Present Illness Chief Complaint: Fall Narrative Narrative: Chief complaint and HPI: Fall. 88-year-old female with history of atrial fibrillation on Eliquis presents for evaluation of right hip pain after a fall. Patient states she was walking to get leftovers when she missed a step and fell. She fell mostly on her right hip. Patient has not ambulated after the fall secondary to pain. She has bilateral hip replacements. Patient hit her posterior right head. No LOC. Patient also has a skin abrasion to the right anterior ibrahim. She denies any headache, vision changes, neck pain, shortness of breath, chest pain abdominal:, Nausea, vomiting, dysuria. She states it was purely mechanical fall. Review of systems: See HPI Medications: As listed on the chart Allergies: As listed on the chart PFSH: Per chart Vital signs: As listed on the chart. Reviewed. Physical exam: Gen: A&O x3, NAD Head: Normocephalic, moderate hematoma to the right posterior scalp Eyes: No sclera icterus, conjunctiva clear, PERRL, EOMI ENT: TMs clear BL, moist mucous membranes, no swelling/lacerations/blood in the mouth or the nares, No nasal septal hematoma, no facial tenderness Neck: Trachea midline, No JVD, Nontender CV: RRR, no murmurs, no chest wall TTP Resp: Lungs CTA BL, no w/r/c GI: Abd soft, non-distended, non-tender, no r/r/g Musc: Full range of motion of all extremities except for the right lower extremity secondary to pain, patient is mildly tender to palpation of the right hip and femur, no deformity, no spinal TTP, no lonnie step-offs, DP/PT pulses plus 2 out of 4 bilaterally Skin: Warm, skin abrasion to the right anterior calf Neuro: Alert, oriented, grossly intact, sensation intact, GCS 15 Psych: Cooperative, appropriate mood and affect [facility] Medical History (Updated 06/13/24 @ 23:08 by Lilo Herrera) Scarlet fever Wound of left lower extremity [facility] 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 Wound of right lower extremity Chronic pain Osteoporosis Asthma Fibromyalgia Arthritis Secondary pulmonary arterial hypertension Asthma PVCs (premature ventricular contractions) Ascending aorta dilatation Nonrheumatic tricuspid valve regurgitation Nonrheumatic mitral valve regurgitation First degree AV block Paroxysmal atrial fibrillation Home Medications ?Medication ?Instructions ?Recorded ?Last Taken ?Type albuterol sulfate 90 mcg/actuation 2 puff IH 4X/DAY PRN PRN Sob &/Or 05/14/13 05/27/13 05:55 History aerosol inhaler Wheezing montelukast 10 mg tablet 10 mg PO DAILY allergies 05/14/13 Unknown History apixaban 2.5 mg tablet 2.5 mg PO BID blood thinner 08/29/20 Unknown History beclomethasone dipropionate 80 2 puff inhalation BID breathing 08/29/20 Unknown History mcg/actuation HFA breath activated aerosol biotin 10,000 mcg capsule 5,000 mcg PO DAILY supplement 08/29/20 Unknown History furosemide 20 mg tablet 20 mg PO DAILY diuretic 08/29/20 Unknown History prednisone 1 mg tablet 5 mg PO DAILY inflammation 08/29/20 Unknown History metoprolol succinate 25 mg 25 mg PO BID ASK PCP #0 tabs 11/25/21 Unknown Rx tablet,extended release 24 hr calcium 600 mg capsule 600 mg PO DAILY 12/09/21 Unknown History tizanidine 4 mg tablet 4 mg PO PRN PRN Anxiety 12/09/21 Unknown History vitamin A 2,400 mcg capsule 2,400 mcg PO DAILY ASK PCP 12/09/21 Unknown History gabapentin 100 mg capsule 100 mg PO BID 12/26/21 Unknown History oxycodone 5 mg tablet 5 mg PO BID 12/26/21 Unknown History pantoprazole 40 mg tablet,delayed 40 mg PO BID ASK PCP #60 tabs 12/28/21 Unknown Rx release (Protonix) sucralfate 1 gram tablet (Carafate) 1 g PO .QID #28 tabs 12/28/21 Unknown Rx cephalexin 500 mg capsule 500 mg PO Q6 #40 CAPSULES 11/13/22 Unknown Rx oxycodone-acetaminophen 5 mg-325 1 tab PO Q8H PRN pain 2 days #7 11/13/22 Unknown Rx mg tablet (Percocet) tabs sulfamethoxazole 800 1 tab PO BID #20 tabs 11/13/22 Unknown Rx mg-trimethoprim 160 mg tablet (Bactrim DS) ondansetron 4 mg disintegrating 8 mg (2 x 4 mg) PO Q8H PRN PRN 11/14/22 Unknown Rx tablet Nausea #14 tabs ascorbic acid (vitamin C) 1,000 mg 1 g PO DAILY ASK PCP 06/13/24 Unknown History capsule clobetasol 0.05 % shampoo 1 applic topical DAILY PRN ASK PCP 06/13/24 Unknown History cyanocobalamin (vitamin B-12) 1,000 mcg PO DAILY ASK PCP 06/13/24 Unknown History 1,000 mcg tablet ferrous sulfate 325 mg (65 mg 325 mg PO .COMPLEX ASK PCP 06/13/24 Unknown History iron) tablet fluticasone propionate 115 2 inh inhalation BID ASK PCP 06/13/24 Unknown History mcg-salmeterol 21 mcg/actuation HFA inhaler (Advair HFA) ketoconazole 2 % shampoo 1 applic topical .COMPLEX ASK PCP 06/13/24 Unknown History potassium chloride 10 mEq 10 meq PO BID ASK PCP 06/13/24 Unknown History capsule,extended release torsemide 20 mg tablet 20 mg PO BID ASK PCP 06/13/24 Unknown History trazodone 50 mg tablet 50 mg PO QHS ASK PCP 06/13/24 Unknown History Allergy/AdvReac Type Severity Reaction Status Date / Time No Known Allergies Allergy Verified 11/17/22 08:33 Family History Unknown No problems noted. Mother , at age 102 No cardiac disease Father Dementia Surgical History History of cholecystectomy H/O mitral valve repair Hx of cholecystectomy History of hysterectomy History of tonsillectomy History of bilateral hip replacements Social History household members: none Smoking Status: Never smoker substance use type: does not use EXAM Physical Exam Const Vital Signs: 06/13/24 18:17 06/13/24 18:27 06/13/24 20:17 Temperature 97.6 F L Temperature Source Temporal Pulse Rate 117 H 96 Respiratory Rate 19 H 15 Respiratory Effort Normal Respiratory Depth Normal Respiratory Pattern Normal Blood Pressure 91/79 121/62 H Blood Pressure Mean 83 81 Pulse Ox 90 98 Oxygen Delivery Method Room Air MDM MDM MDM Narrative Medical decision making narrative: 88-year-old female with history of atrial fibrillation on Eliquis presents for evaluation of right hip pain after a fall. Has posterior right scalp hematoma and left hip pain. Differential diagnosis includes but is not limited to closed head injury, scalp hematoma, intracranial bleed, skull fracture, cervical fracture, hip fracture, pelvic fracture, femur fracture. I do not think any laboratory workup is needed at this time given this was a purely mechanical fall. Abrasion/skin tear was cleaned and dressed. CT head and neck ordered including x-rays of the pelvis, hip, femur. CT of the head without any acute intracranial injury. CT of the cervical spine without any acute traumatic injury. Patient has degenerative changes. She is a 4 mm pulmonary nodule in the right lung apex, recommend CT follow-up in 12 months. Patient was informed of this and states she has known pulmonary nodules. She has at least 2 hypodense nodules in the right thyroid lobe. No follow-up is necessary per radiology. However patient was informed of this And told to follow-up with her PCP. X-rays of the pelvis, hip, femur were personally reviewed and interpreted by myself. Total hip replacements intact without femur fracture. Patient has pelvic fracture. Per radiology she has an acute incomplete fracture of the right superior ramus extending to the right upper symphysis pubis. She has suspicious acute incomplete fracture in the upper surface of the right inferior pubic ramus. Sacroiliac joints are unremarkable. Patient used to follow with [facility] therefore Dr. Polanco was contacted and patient was discussed. Nonoperative management. Weightbearing as tolerated. Follow-up outpatient. Patient given IM fentanyl prior to ambulation trial. Patient unable to ambulate with walker secondary to pain. Her blood pressure is soft in the low 100s/upper 90s. Have to be careful with narcotics. Patient will warrant admission for pain control and PT/OT evaluation for possible rehab. Patient and family confirmed understand the plan. Will place IV easier pain control as well as admission. Patient was discussed with the hospitalist and accepted. Impression: 1. Acute incomplete fracture of the right superior ramus extending to the right upper symphysis pubis 2. Suspicious acute incomplete fracture in the upper surface of the right inferior pubic ramus 3. Intractable pain secondary to #1 and 2 with inability to ambulate 4. Mechanical fall on Eliquis 5. Close injury with scalp hematoma 6. Abrasion/skin tear to the right anterior calf 7. Incidental pulmonary nodule 8. Incidental thyroid nodules Lab Data Labs: Laboratory Results - last 24 hr 06/13/24 18:52 WBC 6.1 RBC 3.76 L Hgb 10.8 L Hct 34.4 L MCV 91.5 MCH 28.7 MCHC 31.4 L RDW Std Deviation 46.7 H RDW Coeff of Carey 14.2 Plt Count 228 MPV 11.2 Immature Gran % (Auto) 0.800 Neut % (Auto) 60.0 Lymph % (Auto) 26.2 [place] % (Auto) 9.0 Eos % (Auto) 3.3 Baso % (Auto) 0.7 Absolute Neuts (auto) 3.7 Absolute Lymphs (auto) 1.61 Nucleated RBC % 0.3 Sodium 139 Potassium 4.3 Chloride 106 Carbon Dioxide 24.0 Anion Gap 9 BUN 45 H Creatinine 2.17 H Estim Creat Clear Calc 16.49 Est GFR (MDRD) Af Amer 28 L Est GFR (MDRD) Non-Af 23 L BUN/Creatinine Ratio 20.7 H Glucose 84 Calcium 8.8 Total Bilirubin 0.80 AST 27 ALT 25 Alkaline Phosphatase 90 Total Protein 7.2 Albumin 4.1 Globulin 3.1 Albumin/Globulin Ratio 1.3 Radiography Diagnostic Testing: Clinical Impression(s) from Imaging Studies Brain CT 06/13/24 19:14 IMPRESSION: No acute findings in the head/brain. Electronically Signed: Arya Yao MD at 20:19 EST , Cervical Spine CT 06/13/24 19:14 IMPRESSION: 1. No CT evidence of acute fractures of the cervical spine, craniocervical junction and cervicothoracic junction. 2. Pronounced C4-C5 disc space height narrowing with mild degenerative anterolisthesis of C4 on C5. 3. Minimal degenerative anterolisthesis of C7 on T1. 4. Pronounced left C4-C5 degenerative facet arthropathy. 5. 4 mm pulmonary nodule in the right lung apex. Fleischner Society Guidelines for low-risk or high-risk patients recommend that one should consider chest CT at 12 months due to the morphology and/or location of this nodule. 6. At least 2 hypodense nodules in the right thyroid lobe. They measure 1.1 x 1 cm and 1.2 x 0.9 cm. ACR White Paper guidelines (Hector VARGAS, et al. JACR 2015;12(2):143-50) suggest no follow-up is necessary. Electronically Signed: Arya Yao MD at 20:26 EST , Femur X-Ray 06/13/24 19:14 IMPRESSION: 1. Acute fracture of the right superior pubic ramus/junction with the symphysis pubis and suspicious acute incomplete fracture of the right inferior pubic ramus. Oblique views of the right hip will be helpful. 2. Intact right metallic hip arthroplasty and unchanged. 3. No suspicious acute fracture or dislocation of the right femur. Electronically Signed: Arya Yao MD at 20:37 EST , Pelvis X-Ray 06/13/24 19:14 IMPRESSION: 1. Acute incomplete fracture of the right superior ramus extending to the right upper symphysis pubis. 2. Suspicious acute incomplete fracture in the upper surface of the right inferior pubic ramus. 3. No acute fracture or dislocation of the bilateral metallic hip arthroplasties. Left metallic hip arthroplasty was not present on 07/23/2012 Electronically Signed: Arya Yao MD at 20:39 EST , Discharge Plan Disposition Disposition: Acute Care Hospital [facility] Discharge Date/Time: 06/13/24 22:51
[2024-06-13 20:17] VITALS: BP 121/62; PULSE 96; RESP 15; O2SAT 98
[2024-06-13] MEDS: fentaNYL 100 MCG/2 ML Ampul 50 MCG IM (21:15)
[2024-06-13 22:00] VITALS: BP 120/63; PULSE 88; RESP 16; O2SAT 99
[2024-06-13 22:12] LABS: Absolute Lymphocyte Count 1.61 X10^3/uL (0.83-4.51); Absolute Neutrophil Count 3.7 X10^3/uL (2.0-7.7); Basophil# 0.04 X10^3/uL; Basophil% 0.7 % (0-1); Eosinophils% 3.3 % (0-5); Hematocrit 34.4 % (37-47); Hemoglobin 10.8 g/dL (12.0-15.0); Lymphocyte # 1.61 X10^3/ul (0.83-4.51); Lymphocyte % 26.2 % (19-41); Mean Corp Hgb Conc 31.4 g/dL (32-36); Mean Corpuscular Hgb 28.7 pg (27.0-32.0); Mean Corpuscular Volume 91.5 fL (81-99); Mean Platelet Vol. 11.2 fl (6.2-12.0); Monocyte# 0.55 X10^3/uL; NRBC Flagged by Analyzer 0.3 % (0-5); Neutrophil # 3.69 X10^3/uL (2.7-7.7); Platelet Count 228 K/mm3 (150-450); RBC Distribution Width CV 14.2 % (11.6-14.6); RBC Distribution Width SD 46.7 fl (35.1-43.9); Red Blood Count 3.76 M/mm3 (4.2-5.4); White Blood Count 6.1 K/mm3 (4.4-11.0)
[2024-06-13 22:25] LABS: ALB/GLOB Ratio 1.3 RATIO (0.9-2.4); AST(SGOT) 27 U/L (15-37); Alanine Aminotransfer ALT/SGPT 25 U/L (13-56); Albumin, Serum 4.1 g/dL (3.2-5.0); Alkaline Phosphatase 90 U/L (45-117); Anion Gap 9 (5-15); BUN 45 mg/dL (7-18); BUN/Creat Ratio 20.7 RATIO (10-20); Calcium,Total 8.8 mg/dL (8.5-10.1); Chloride 106 mmol/L (98-107); Creatinine, Serum 2.17 mg/dL (0.55-1.02); EST Glomerular Filtration Rate 23 mL/min (>60); Est Glom Filt Rate - Afr Amer 28 mL/min (>60); Estimated Creatinine Clearance 16.49 ml/min; Globulin 3.1 g/dL (2.2-4.2); Glucose 84 mg/dL (74-106); Potassium 4.3 mmol/L (3.5-5.1); Protein, Total 7.2 g/dL (6.4-8.2); Sodium Level 139 mmol/L (136-145)
[2024-06-13 22:26] VITALS: BP 93/68; PULSE 78; RESP 15; TEMP 36.8; O2SAT 96
[2024-06-13 23:04] VITALS: BMI 19.5
[2024-06-13 23:22] VITALS: BP 140/63; PULSE 84; RESP 16; TEMP 36.6; O2SAT 96
[2024-06-13] MEDS: APIXABAN 2.5 MG TABLET (WCH) PO (23:50)
[2024-06-13] MEDS: Acetaminophen 500 MG Tablet 1000 MG PO (23:50)
--- NOTE | 2024-06-14 02:05 | HP.PCM.HOS_ITS ---
HPI - General General Date of Admission: 06/13/24 Date of Service: 06/13/24 Chief Complaint: Fall with right hip/pelvic pain HPI Narrative KAMLESH COLE, is a 88 F who presented to [facility] ED on 06/13/2024 with right hip/pelvic pain after a fall at home. Patient lives at home alone, family lives in the area. Has history of bilateral hip replacements and uses a 4 point walker for ambulation. Patient was with family today when she missed a step and fell. She denies any lightheadedness or dizziness prior to the fall and states it was simply a mechanical fall. Fell onto her right hip and had right hip/pelvis pain afterward. EMS was called and patient was brought in for further evaluation. Hip/pelvis x-ray showed acute incomplete fracture of the right superior ramus extending to the right upper pubic symphysis, as well as suspicious acute incomplete fracture in the upper surface of the right inferior pubic ramus. Notably with no acute fracture or dislocation of bilateral metallic hip arthroplasties. Case was discussed with orthopedics who noted no surgical needs. Patient had significant pain and difficulty with ambulation in the ED and she and family felt she was not safe to go home. Hospitalist was then contacted for admission. I saw the patient at bedside in the ED, son and [id number] were present. Patient was laying back in bed fairly comfortably, conversing normally, in no acute distress. Patient is sharp mentally and answer questions appropriately for me. States that when she remains still she does not have any pain but does have significant right hip/pelvis pain with any movement. Was given a dose of IV fentanyl 25 mcg in the ED and had only mild relief of pain. Patient's blood pressure typically runs lower in the 90s over 60s and ED physician gave a low dose of fentanyl to minimize blood pressure drop. Patient denies any other acute concerns currently. Will be admitted for further management. [facility] Medical History (Updated 06/14/24 @ 02:[address] Craig Purdy, ) Scarlet fever Wound of left lower extremity correction current use of anticoagulant correction (current) use of systemic steroids Wound of right lower extremity Chronic pain Osteoporosis Asthma Fibromyalgia Arthritis Secondary pulmonary arterial hypertension Asthma PVCs (premature ventricular contractions) Ascending aorta dilatation Nonrheumatic tricuspid valve regurgitation Nonrheumatic mitral valve regurgitation First degree AV block Paroxysmal atrial fibrillation Home Medications ?Medication ?Instructions ?Recorded ?Last Taken ?Type albuterol sulfate 90 mcg/actuation 2 puff IH 4X/DAY PRN PRN Sob &/Or 05/14/13 05/27/13 05:55 History aerosol inhaler Wheezing montelukast 10 mg tablet 10 mg PO DAILY allergies 05/14/13 Unknown History apixaban 2.5 mg tablet 2.5 mg PO BID blood thinner 08/29/20 Unknown History beclomethasone dipropionate 80 2 puff inhalation BID breathing 08/29/20 Unknown History mcg/actuation HFA breath activated aerosol biotin 10,000 mcg capsule 5,000 mcg PO DAILY supplement 08/29/20 Unknown History furosemide 20 mg tablet 20 mg PO DAILY diuretic 08/29/20 Unknown History prednisone 1 mg tablet 5 mg PO DAILY inflammation 08/29/20 Unknown History metoprolol succinate 25 mg 25 mg PO BID ASK PCP #0 tabs 11/25/21 Unknown Rx tablet,extended release 24 hr calcium 600 mg capsule 600 mg PO DAILY 12/09/21 Unknown History tizanidine 4 mg tablet 4 mg PO PRN PRN Anxiety 12/09/21 Unknown History vitamin A 2,400 mcg capsule 2,400 mcg PO DAILY ASK PCP 12/09/21 Unknown History gabapentin 100 mg capsule 100 mg PO BID 12/26/21 Unknown History oxycodone 5 mg tablet 5 mg PO BID 12/26/21 Unknown History pantoprazole 40 mg tablet,delayed 40 mg PO BID ASK PCP #60 tabs 12/28/21 Unknown Rx release (Protonix) sucralfate 1 gram tablet (Carafate) 1 g PO .QID #28 tabs 12/28/21 Unknown Rx cephalexin 500 mg capsule 500 mg PO Q6 #40 CAPSULES 11/13/22 Unknown Rx oxycodone-acetaminophen 5 mg-325 1 tab PO Q8H PRN pain 2 days #7 11/13/22 Unknown Rx mg tablet (Percocet) tabs sulfamethoxazole 800 1 tab PO BID #20 tabs 11/13/22 Unknown Rx mg-trimethoprim 160 mg tablet (Bactrim DS) ondansetron 4 mg disintegrating 8 mg (2 x 4 mg) PO Q8H PRN PRN 11/14/22 Unknown Rx tablet Nausea #14 tabs ascorbic acid (vitamin C) 1,000 mg 1 g PO DAILY ASK PCP 06/13/24 Unknown History capsule clobetasol 0.05 % shampoo 1 applic topical DAILY PRN ASK PCP 06/13/24 Unknown History cyanocobalamin (vitamin B-12) 1,000 mcg PO DAILY ASK PCP 06/13/24 Unknown History 1,000 mcg tablet ferrous sulfate 325 mg (65 mg 325 mg PO .COMPLEX ASK PCP 06/13/24 Unknown History iron) tablet fluticasone propionate 115 2 inh inhalation BID ASK PCP 06/13/24 Unknown History mcg-salmeterol 21 mcg/actuation HFA inhaler (Advair HFA) ketoconazole 2 % shampoo 1 applic topical .COMPLEX ASK PCP 06/13/24 Unknown History potassium chloride 10 mEq 10 meq PO BID ASK PCP 06/13/24 Unknown History capsule,extended release torsemide 20 mg tablet 20 mg PO BID ASK PCP 06/13/24 Unknown History trazodone 50 mg tablet 50 mg PO QHS ASK PCP 06/13/24 Unknown History Allergy/AdvReac Type Severity Reaction Status Date / Time No Known Allergies Allergy Verified 11/17/22 08:33 Family History Unknown No problems noted. Mother , at age 102 No cardiac disease Father Dementia Surgical History History of cholecystectomy H/O mitral valve repair Hx of cholecystectomy History of hysterectomy History of tonsillectomy History of bilateral hip replacements Social History household members: none Smoking Status: Never smoker substance use type: does not use ROS Constitutional Constitutional: Denies chills, fatigue, fever(s) or weakness Eyes Eyes: Denies change in vision Cardiovascular Cardiovascular: Denies chest pain Respiratory/Chest Respiratory/Chest: Denies shortness of breath at rest Gastrointestinal Gastrointestinal: Denies abdominal pain Musculoskeletal Musculoskeletal: Reports joint pain; Denies arthralgias, back pain or myalgias Neurologic Neurologic: Denies dizziness or headache(s) Vital Signs Vital Signs Vital Signs: 06/13/24 18:17 06/13/24 18:27 06/13/24 20:17 Temperature 97.6 F L Temperature Source Temporal Pulse Rate 117 H 96 Pulse Strength Respiratory Rate 19 H 15 Respiratory Effort Normal Respiratory Depth Normal Respiratory Pattern Normal Blood Pressure 91/79 121/62 H Blood Pressure Mean 83 81 Blood Pressure Source Blood Pressure Position Blood Pressure Location Pulse Ox 90 98 Oxygen Delivery Method Room Air 06/13/24 22:00 06/13/24 22:26 06/13/24 23:22 Temperature 98.2 F Temperature Source Pulse Rate 88 78 Pulse Strength Respiratory Rate 16 15 Respiratory Effort Normal Respiratory Depth Normal Respiratory Pattern Normal Blood Pressure 120/63 93/68 Blood Pressure Mean 82 76 Blood Pressure Source Blood Pressure Position Blood Pressure Location Pulse Ox 99 96 Oxygen Delivery Method Room Air 06/13/24 23:22 06/13/24 23:29 Temperature 98 F Temperature Source Oral Pulse Rate 84 Pulse Strength Normal (2+) Respiratory Rate 16 Respiratory Effort Respiratory Depth Respiratory Pattern Blood Pressure 140/63 H Blood Pressure Mean 88 Blood Pressure Source Monitor Blood Pressure Position Semi-Fowlers Blood Pressure Location Right Arm Pulse Ox 96 Oxygen Delivery Method Room Air Weight Weight: 54.885 kg Body Mass Index (BMI) 19.5 Physical Exam Const alert, oriented x3 and no apparent distress Constitutional Narrative: Pleasant elderly female, thin appearing, laying back fairly comfortably in bed, conversing normally, in no acute distress. General Appearance: cooperative and comfortable HEENT normocephalic, head/scalp atraumatic, hearing grossly normal bilaterally, nasal mucous membranes and turbinates normal and moist oral mucous membranes Eyes PERRL, EOMs intact bilaterally and conjunctivae normal Neck full ROM Chest inspection of chest normal Resp normal respiratory effort, normal air movement, no use of accessory muscles and clear to auscultation bilaterally Cardio regular rate, regular rhythm, no murmurs and peripheral pulses 2+ throughout GI normal to inspection, nondistended, normoactive bowel sounds, soft to palpation, non-tender and non-distended Back/Spine normal ROM Extremity normal to inspection Extremity Narrative: Mild tenderness to palpation in right hip and pelvic area. No skin changes noted. Did not attempt any motion of the patient. Skin no rashes or lesions noted Psych mental status grossly normal Results Lab / Micro Data 06/13/24 18:52 06/13/24 18:52 Labs: Laboratory Results - last 24 hr 06/13/24 18:52: WBC 6.1, RBC 3.76 L, Hgb 10.8 L, Hct 34.4 L, MCV 91.5, MCH 28.7, MCHC 31.4 L, RDW Std Deviation 46.7 H, RDW Coeff of Carey 14.2, Plt Count 228, MPV 11.2, Immature Gran % (Auto) 0.800, Neut % (Auto) 60.0, Lymph % (Auto) 26.2, [place] % (Auto) 9.0, Eos % (Auto) 3.3, Baso % (Auto) 0.7, Absolute Neuts (auto) 3.7, Absolute Lymphs (auto) 1.61, Nucleated RBC % 0.3, Sodium 139, Potassium 4.3, Chloride 106, Carbon Dioxide 24.0, Anion Gap 9, BUN 45 H, Creatinine 2.17 H , Estim Creat Clear Calc 16.49, Est GFR (MDRD) Af Amer 28 L, Est GFR (MDRD) Non- Af 23 L, BUN/Creatinine Ratio 20.7 H, Glucose 84, Calcium 8.8, Total Bilirubin 0.80, AST 27, ALT 25, Alkaline Phosphatase 90, Total Protein 7.2, Albumin 4.1, Globulin 3.1, Albumin/Globulin Ratio 1.3 Imaging Radiology Impression Brain CT 06/13/24 19:14 IMPRESSION: No acute findings in the head/brain. Electronically Signed: Arya Yao MD at 20:19 EST , Cervical Spine CT 06/13/24 19:14 IMPRESSION: 1. No CT evidence of acute fractures of the cervical spine, craniocervical junction and cervicothoracic junction. 2. Pronounced C4-C5 disc space height narrowing with mild degenerative anterolisthesis of C4 on C5. 3. Minimal degenerative anterolisthesis of C7 on T1. 4. Pronounced left C4-C5 degenerative facet arthropathy. 5. 4 mm pulmonary nodule in the right lung apex. Fleischner Society Guidelines for low-risk or high-risk patients recommend that one should consider chest CT at 12 months due to the morphology and/or location of this nodule. 6. At least 2 hypodense nodules in the right thyroid lobe. They measure 1.1 x 1 cm and 1.2 x 0.9 cm. ACR White Paper guidelines (Young JK, et al. JACR 2015;12(2):143-50) suggest no follow-up is necessary. Electronically Signed: Arya Yao MD at 20:26 EST , Femur X-Ray 06/13/24 19:14 IMPRESSION: 1. Acute fracture of the right superior pubic ramus/junction with the symphysis pubis and suspicious acute incomplete fracture of the right inferior pubic ramus. Oblique views of the right hip will be helpful. 2. Intact right metallic hip arthroplasty and unchanged. 3. No suspicious acute fracture or dislocation of the right femur. Electronically Signed: Arya Yao MD at 20:37 EST , Pelvis X-Ray 06/13/24 19:14 IMPRESSION: 1. Acute incomplete fracture of the right superior ramus extending to the right upper symphysis pubis. 2. Suspicious acute incomplete fracture in the upper surface of the right inferior pubic ramus. 3. No acute fracture or dislocation of the bilateral metallic hip arthroplasties. Left metallic hip arthroplasty was not present on 07/23/2012 Electronically Signed: Arya Yao MD at 20:39 EST , Assessment & Plan Assessment/Plan (1) Pelvic fracture: (2) Difficulty in walking: (3) LIA (acute kidney injury): PLAN: Plan Patient is an 88-year-old female [facility] with right hip/pelvis pain after a fall. 1. Right sided pelvis fracture with intractable pain and difficulty with ambulation ? Admit under inpatient status to [facility]. PT/OT/case management consulted. Pain control with scheduled Tylenol, p.o. oxycodone as needed and IV Dilaudid as needed. Suspect patient will require SNF placement on discharge. 2. LIA ? Creatinine 2.17 on admit, baseline from 2022 around 1.0. Suspect prerenal from mild dehydration on diuretics for heart failure as noted below. 1 L IV fluid bolus given on admit. Follow-up a.m. BMP and monitor urine output. 3. Chronic iron deficiency anemia ? Hemoglobin 10.8 on admit, baseline 9-10. Continue home iron supplement. 4. Paroxysmal A-fib on Eliquis ? In normal sinus rhythm on admit. Notably CT head and C-spine in ED were negative after fall. Continue home Eliquis. Not on any rate controlling agents at this time. 5. HFpEF with pulmonary arterial hypertension ? Last echo in 2021 showed EF 60%, unable to assess diastolic function, RVSP 32 mmHg. On home torsemide 20 mg twice daily. Suspect patient may be dry due to over diuresis at home. Hold torsemide for now. 6. GERD ? Continue home PPI. 7. Asthma/allergies ? Continue home inhalers and montelukast. DVT prophylaxis: Not indicated, on Eliquis CODE STATUS: DNR CCA, DNI Expected disposition: SNF, 2 to 3 days Total clinical time spent by myself addressing the patient's medical issues, reviewing all the data, and collaborating with patient's care team: 55 minutes. Charges/Coding Visit Charges Inpatient E&M: 79595 Init Hosp L2
[2024-06-14] MEDS: Acetaminophen 500 MG Tablet 1000 MG PO ×3 (05:17→20:36)
[2024-06-14] MEDS: oxyCODONE 5 MG Tablet PO ×3 (05:18→20:36)
[2024-06-14 05:24] VITALS: BP 106/62; PULSE 75; RESP 16; TEMP 36.6; O2SAT 96
[2024-06-14] MEDS: Budesonide Respules 0.5 MG/2 ML AMPUL.NEB. INHALATION (07:24)
[2024-06-14] MEDS: Albuterol 2.5 MG/3 ML VIAL.NEB. INHALATION (07:24)
[2024-06-14 07:25] VITALS: PULSE 78; RESP 16; O2SAT 92
[2024-06-14 07:54] LABS: Hematocrit 27.6 % (37-47); Hemoglobin 8.9 g/dL (12.0-15.0); Mean Corp Hgb Conc 32.2 g/dL (32-36); Mean Corpuscular Hgb 28.7 pg (27.0-32.0); Mean Platelet Vol. 10.5 fl (6.2-12.0); Platelet Count 188 K/mm3 (150-450); RBC Distribution Width CV 13.7 % (11.6-14.6); RBC Distribution Width SD 44.3 fl (35.1-43.9); White Blood Count 6.1 K/mm3 (4.4-11.0)
[2024-06-14 09:01] VITALS: BP 85/61; PULSE 90; RESP 16; TEMP 36.8; O2SAT 95
[2024-06-14] MEDS: Ferrous Sulfate 325 MG Tablet PO (09:02)
[2024-06-14] MEDS: APIXABAN 2.5 MG TABLET (WCH) PO ×2 (09:02→20:36)
[2024-06-14] MEDS: Cyanocobalamin 500 MCG Tablet 1000 MCG PO (09:03)
[2024-06-14] MEDS: Montelukast 10 MG Tablet PO (09:03)
[2024-06-14] MEDS: Pantoprazole Sodium 40 MG Tablet PO ×2 (09:03→23:04)
[2024-06-14 09:06] LABS: Anion Gap 9 (5-15); BUN 43 mg/dL (7-18); BUN/Creat Ratio 25.6 RATIO (10-20); Calcium,Total 8.3 mg/dL (8.5-10.1); Chloride 106 mmol/L (98-107); Creatinine, Serum 1.68 mg/dL (0.55-1.02); EST Glomerular Filtration Rate 31 mL/min (>60); Est Glom Filt Rate - Afr Amer 37 mL/min (>60); Estimated Creatinine Clearance 20.44 ml/min; Glucose 116 mg/dL (74-106); Potassium 3.8 mmol/L (3.5-5.1); Sodium Level 138 mmol/L (136-145)
--- NOTE | 2024-06-14 09:46 | PN.HOSP_ITS ---
Subjective Subjective Doing well, no issues overnight Objective Data Objective Data Vital Signs: Vital Signs Temp Pulse Resp BP Pulse Ox O2 Del Method 98.2 F 90 16 85/61 L 95 Room Air 06/14/24 09:01 06/14/24 09:01 06/14/24 09:01 06/14/24 09:01 06/14/24 09:01 06/14/24 09:11 Oxygen Delivery Method Room Air Weight: 121 lb Body Mass Index (BMI) 19.5 Intake & Output: Intake and Output for Last 24 Hours 06/13/24 06/14/24 06/15/24 03:59 03:59 03:59 Intake Total 150 / 150 800 / 800 Balance 150 / 150 800 / 800 Lab / Micro Data 06/14/24 07:12 06/14/24 07:12 Labs: Laboratory Results - last 24 hr 06/13/24 18:52: WBC 6.1, RBC 3.76 L, Hgb 10.8 L, Hct 34.4 L, MCV 91.5, MCH 28.7, MCHC 31.4 L, RDW Std Deviation 46.7 H, RDW Coeff of Carey 14.2, Plt Count 228, MPV 11.2, Immature Gran % (Auto) 0.800, Neut % (Auto) 60.0, Lymph % (Auto) 26.2, [place] % (Auto) 9.0, Eos % (Auto) 3.3, Baso % (Auto) 0.7, Absolute Neuts (auto) 3.7, Absolute Lymphs (auto) 1.61, Nucleated RBC % 0.3, Sodium 139, Potassium 4.3, Chloride 106, Carbon Dioxide 24.0, Anion Gap 9, BUN 45 H, Creatinine 2.17 H , Estim Creat Clear Calc 16.49, Est GFR (MDRD) Af Amer 28 L, Est GFR (MDRD) Non- Af 23 L, BUN/Creatinine Ratio 20.7 H, Glucose 84, Calcium 8.8, Total Bilirubin 0.80, AST 27, ALT 25, Alkaline Phosphatase 90, Total Protein 7.2, Albumin 4.1, Globulin 3.1, Albumin/Globulin Ratio 1.3 06/14/24 07:12: WBC 6.1, RBC 3.10 L, Hgb 8.9 L, Hct 27.6 L, MCV 89.0, MCH 28.7, MCHC 32.2, RDW Std Deviation 44.3 H, RDW Coeff of Carey 13.7, Plt Count 188, MPV 10.5, Sodium 138, Potassium 3.8, Chloride 106, Carbon Dioxide 24.0, Anion Gap 9, BUN 43 H, Creatinine 1.68 H, Estim Creat Clear Calc 20.44, Est GFR (MDRD) Af Amer 37 L, Est GFR (MDRD) Non-Af 31 L, BUN/Creatinine Ratio 25.6 H, Glucose 116 H, Calcium 8.3 L Radiography Diagnostic Testing: Radiology Impression Brain CT 06/13/24 19:14 IMPRESSION: No acute findings in the head/brain. Electronically Signed: Arya Yao MD at 20:19 EST , Cervical Spine CT 06/13/24 19:14 IMPRESSION: 1. No CT evidence of acute fractures of the cervical spine, craniocervical junction and cervicothoracic junction. 2. Pronounced C4-C5 disc space height narrowing with mild degenerative anterolisthesis of C4 on C5. 3. Minimal degenerative anterolisthesis of C7 on T1. 4. Pronounced left C4-C5 degenerative facet arthropathy. 5. 4 mm pulmonary nodule in the right lung apex. Fleischner Society Guidelines for low-risk or high-risk patients recommend that one should consider chest CT at 12 months due to the morphology and/or location of this nodule. 6. At least 2 hypodense nodules in the right thyroid lobe. They measure 1.1 x 1 cm and 1.2 x 0.9 cm. ACR White Paper guidelines (Hector VARGAS, et al. JACR 2015;12(2):143-50) suggest no follow-up is necessary. Electronically Signed: Arya Yao MD at 20:26 EST , Femur X-Ray 06/13/24 19:14 IMPRESSION: 1. Acute fracture of the right superior pubic ramus/junction with the symphysis pubis and suspicious acute incomplete fracture of the right inferior pubic ramus. Oblique views of the right hip will be helpful. 2. Intact right metallic hip arthroplasty and unchanged. 3. No suspicious acute fracture or dislocation of the right femur. Electronically Signed: Arya Yao MD at 20:37 EST Reading Location ID and State: [facility] / [place] , Service support , Pelvis X-Ray 06/13/24 19:14 IMPRESSION: 1. Acute incomplete fracture of the right superior ramus extending to the right upper symphysis pubis. 2. Suspicious acute incomplete fracture in the upper surface of the right inferior pubic ramus. 3. No acute fracture or dislocation of the bilateral metallic hip arthroplasties. Left metallic hip arthroplasty was not present on 07/23/2012 Electronically Signed: Arya Yao MD at 20:39 EST , Physical Exam Narrative General: Alert, Oriented x3, Cooperative, No apparent distress HEENT: Atraumatic, PERRLA, EOMI, Normocephalic Oral: Moist Mucosa Neck: Supple, No JVD Lungs: Clear to auscultation, Normal air movement, No rhonchi, No wheeze, No rales Cardiovascular: Regular rate, Regular Rhythm, Normal S1, Normal S2, No murmurs Abdomen: Soft, Non Tender, Non-Distended, No Hepato-splenomegaly Extremities: No edema, Capillary Refill Less than 3 Seconds Skin: No rashes, No breakdown Musculoskeletal: No Tenderness to Palpation of Joints or Extremities Neurological: No focal neurological deficits, Motor Exam 5/5 strength throughout, Sensory exam intact to light touch and pain Psych/Mental Status: Normal Affect, Appropriate Assessment & Plan Assessment/Plan (1) Pelvic fracture: (2) Difficulty in walking: (3) LIA (acute kidney injury): PLAN: Plan 1. Right sided pubic rami fracture secondary to mechanical fall/LIA ? PT/OT ? Continue with pain control ? Will evaluate for the possibility of going home versus SNF ? She presented with an LIA with creatinine of 2.17 baseline is around 1. Will hold her Lasix continue with IV fluids as necessary 2. Chronic diastolic CHF with pulmonary hypertension/paroxysmal A-fib/essential HTN ? Continue with home blood pressure medications, will hold her Lasix secondary to her LIA ? Continue with Eliquis as she is not a surgical candidate at this time ? Echo in 2021 with an EF of 60% and RVSP of 32 mmHg 3. Chronic iron deficiency anemia ? Continue with her iron supplementation ? Hemoglobin is at baseline 4. GERD ? Stable/continue with PPI DVT: Alo Charges/Coding Visit Charges Inpatient E&M: 99343 Subs Hosp L2
--- NOTE | 2024-06-14 10:31 | CASEMGMT ---
Discharge Planning A list of SNF providers including quality and resource use data and consistent with the patient's preferred geographic region, medical needs, and insurance network was created in [employer] Guide.? This list was provided to the SW. Tahira Ralph Discharge Planning Asst.
[2024-06-14 11:07] VITALS: BP 120/65; PULSE 89; RESP 16; TEMP 36.8; O2SAT 97
--- NOTE | 2024-06-14 13:00 | CASEMGMT ---
Social Work- A list of SNF providers including quality and resource use data and consistent with the patient?s preferred geographic region, medical needs, and insurance network were provided from the [facility] Guide. Pt selected [facility] as [facility]. Pt son,Say, will be in at 14:00 to assist with additional choices. SW completed referral to TCU. SW remains available to follow. SAGAR Edwards
[2024-06-14 14:17] VITALS: BP 105/55; PULSE 85; RESP 16; TEMP 36.8; O2SAT 95
--- NOTE | 2024-06-14 14:26 | CASEMGMT ---
Social Work- SW met with pt and pt son, Say, to discuss alternate choices to TCU if needed. SW provided [facility] navigator card and also provided education on SNF list medicare ratings. Pt and son selected [facility] as alternate choice. SW notified [facility]. SW will remain available to follow. SAGAR Edwards
--- NOTE | 2024-06-14 14:29 | CASEMGMT ---
Case Management Assessment Social Work SW?to room to meet with patient for initial transition planning/care coordination?assessment.?SW?introduced self and role at [facility].? Pt voices understanding and consents to?assessment.? Pt is A/Ox4 and answers all questions appropriately.?? Care providers, pharmacy, and demographics verified. PCP: Cielo Ribeiro Preferred Pharmacy: [facility] Insurance: [employer] Living Will/HPOA:?Has living will on file; no POA. DNRCC-A code status LNOK: Say Lopez [phone] Living Arrangements: Lives alone in a single story home. Pt has a walk-in shower with grab bars and standard height toilet. PT sleeps in a standard bed. Transportation:?Pt drives and is independent DME: Has a WW in storage in the home. Does not use a baseline. PLAN: Pt would like referral to TCU (FOC) with [facility] as alternate SAGAR Edwards
--- NOTE | 2024-06-14 14:48 | CASEMGMT ---
Discharge Planning Referral sent via [facility] to [facility]. Tahira Ralph DC Planning Asst.
[2024-06-14 20:04] VITALS: BP 97/55; PULSE 87; RESP 18; TEMP 36.8; O2SAT 93
[2024-06-14] MEDS: traZODone 50 MG Tablet PO (20:36)
[2024-06-15] VITALS (8 sets, daily range): BP systolic 92–129; BP diastolic 50–60; PULSE 83–94; RESP 16–18; TEMP 36.2–37.1; O2SAT 92–97
[2024-06-15] MEDS: oxyCODONE 5 MG Tablet PO ×3 (05:18→21:29)
[2024-06-15] MEDS: Acetaminophen 500 MG Tablet 1000 MG PO ×3 (05:18→21:29)
[2024-06-15 06:12] LABS: Absolute Lymphocyte Count 0.73 X10^3/uL (0.83-4.51); Absolute Neutrophil Count 4.7 X10^3/uL (2.0-7.7); Basophil# 0.04 X10^3/uL; Basophil% 0.6 % (0-1); Eosinophil# 0.29 X10^3/uL; Eosinophils% 4.6 % (0-5); Hematocrit 26.4 % (37-47); Hemoglobin 8.3 g/dL (12.0-15.0); Lymphocyte # 0.73 X10^3/ul (0.83-4.51); Lymphocyte % 11.6 % (19-41); Mean Corp Hgb Conc 31.4 g/dL (32-36); Mean Corpuscular Hgb 28.5 pg (27.0-32.0); Mean Corpuscular Volume 90.7 fL (81-99); Mean Platelet Vol. 10.2 fl (6.2-12.0); Monocyte# 0.52 X10^3/uL; Monocyte% 8.3 % (0-10); NRBC Flagged by Analyzer 0 % (0-5); Neutrophil # 4.68 X10^3/uL (2.7-7.7); Neutrophil % 74.6 % (47-70); Platelet Count 162 K/mm3 (150-450); RBC Distribution Width CV 13.7 % (11.6-14.6); RBC Distribution Width SD 44.9 fl (35.1-43.9); Red Blood Count 2.91 M/mm3 (4.2-5.4); White Blood Count 6.3 K/mm3 (4.4-11.0)
[2024-06-15 06:37] LABS: Anion Gap 7 (5-15); BUN 35 mg/dL (7-18); BUN/Creat Ratio 26.7 RATIO (10-20); Calcium,Total 8.3 mg/dL (8.5-10.1); Chloride 105 mmol/L (98-107); Creatinine, Serum 1.31 mg/dL (0.55-1.02); EST Glomerular Filtration Rate 41 mL/min (>60); Est Glom Filt Rate - Afr Amer 49 mL/min (>60); Estimated Creatinine Clearance 26.21 ml/min; Glucose 113 mg/dL (74-106); Potassium 3.5 mmol/L (3.5-5.1); Sodium Level 137 mmol/L (136-145)
[2024-06-15 07:35] LABS: Iron 21 ug/dL (50-170); Iron Binding Capacity,Total 205 ug/dL (250-450); PERCENT IRON SATURATION 10.2 % (15.0-55.0)
--- NOTE | 2024-06-15 09:21 | PN.HOSP_ITS ---
Subjective Subjective Doing well, no issues overnight Objective Data Objective Data Vital Signs: Vital Signs Temp Pulse Resp BP Pulse Ox O2 Del Method 98.1 F 88 17 92/52 L 95 Room Air 06/15/24 08:52 06/15/24 08:52 06/15/24 08:52 06/15/24 08:52 06/15/24 08:52 06/15/24 08:52 Oxygen Delivery Method Room Air Weight: 121 lb Body Mass Index (BMI) 19.5 Intake & Output: Intake and Output for Last 24 Hours 06/14/24 06/15/24 06/16/24 03:59 03:59 03:59 Intake Total 150 / 150 1200 / 1200 200 / 200 Output Total 300 / 300 Balance 150 / 150 900 / 900 200 / 200 Lab / Micro Data 06/15/24 05:45 06/15/24 05:45 Labs: Laboratory Results - last 24 hr 06/15/24 05:45: WBC 6.3, RBC 2.91 L, Hgb 8.3 L, Hct 26.4 L, MCV 90.7, MCH 28.5, MCHC 31.4 L, RDW Std Deviation 44.9 H, RDW Coeff of Carey 13.7, Plt Count 162, MPV 10.2, Immature Gran % (Auto) 0.300, Neut % (Auto) 74.6 H, Lymph % (Auto) 11.6 L, [place] % (Auto) 8.3, Eos % (Auto) 4.6, Baso % (Auto) 0.6, Absolute Neuts (auto) 4.7, Absolute Lymphs (auto) 0.73 L, Nucleated RBC % 0, Sodium 137, Potassium 3.5, Chloride 105, Carbon Dioxide 25.0, Anion Gap 7, BUN 35 H, Creatinine 1.31 H , Estim Creat Clear Calc 26.21, Est GFR (MDRD) Af Amer 49 L, Est GFR (MDRD) Non- Af 41 L, BUN/Creatinine Ratio 26.7 H, Glucose 113 H, Calcium 8.3 L, Iron 21 L, T IBC 205 L, Iron Saturation 10.2 L Physical Exam Narrative General: Alert, Oriented x3, Cooperative, No apparent distress HEENT: Atraumatic, PERRLA, EOMI, Normocephalic Oral: Moist Mucosa Neck: Supple, No JVD Lungs: Clear to auscultation, Normal air movement, No rhonchi, No wheeze, No rales Cardiovascular: Regular rate, Regular Rhythm, Normal S1, Normal S2, No murmurs Abdomen: Soft, Non Tender, Non-Distended, No Hepato-splenomegaly Extremities: No edema, Capillary Refill Less than 3 Seconds Skin: No rashes, No breakdown Musculoskeletal: No Tenderness to Palpation of Joints or Extremities Neurological: No focal neurological deficits, Motor Exam 5/5 strength throughout, Sensory exam intact to light touch and pain Psych/Mental Status: Normal Affect, Appropriate Assessment & Plan Assessment/Plan (1) Pelvic fracture: (2) Difficulty in walking: (3) LIA (acute kidney injury): PLAN: Plan 1. Right sided pubic rami fracture secondary to mechanical fall/LIA ? PT/OT ? Continue with pain control ? Will evaluate for the possibility of going home versus SNF ?LIA is resolved with a creatinine of 1.31 today, baseline is 1 2. Chronic diastolic CHF with pulmonary hypertension/paroxysmal A-fib/essential HTN ? Continue with home blood pressure medications, will hold her Lasix secondary to her LIA, can likely resume Lasix in 24 to 48 hours ? Continue with Eliquis as she is not a surgical candidate at this time ? Echo in 2021 with an EF of 60% and RVSP of 32 mmHg 3. Chronic iron deficiency anemia ? Continue with her iron supplementation ? Hemoglobin is at baseline ? Will give her a dose of IV iron today 4. GERD ? Stable/continue with PPI DVT: SCDs Charges/Coding Visit Charges Inpatient E&M: 37322 Subs Hosp L2
[2024-06-15] MEDS: Sodium Ferric Gluconat/Sucrose 250 MG in 0.9% Normal Saline (250mL Bag) 250 ML 135 MG IV (10:53)
[2024-06-15] MEDS: 0.9% Saline Lock 10 ML Syringe IV (10:58)
[2024-06-15] MEDS: Montelukast 10 MG Tablet PO (11:04)
[2024-06-15] MEDS: Cyanocobalamin 500 MCG Tablet 1000 MCG PO (11:04)
[2024-06-15] MEDS: Pantoprazole Sodium 40 MG Tablet PO ×2 (11:04→21:29)
[2024-06-15] MEDS: traZODone 50 MG Tablet PO (21:28)
[2024-06-15] MEDS: Albuterol 2.5 MG/3 ML VIAL.NEB. INHALATION (21:39)
[2024-06-16 04:00] VITALS: BP 113/50; PULSE 74; RESP 16; TEMP 36.9; O2SAT 92
[2024-06-16] MEDS: Acetaminophen 500 MG Tablet 1000 MG PO ×3 (05:27→21:25)
[2024-06-16] MEDS: oxyCODONE 5 MG Tablet PO ×2 (05:27→16:15)
[2024-06-16 06:04] LABS: Absolute Lymphocyte Count 1.02 X10^3/uL (0.83-4.51); Absolute Neutrophil Count 3.3 X10^3/uL (2.0-7.7); Basophil# 0.03 X10^3/uL; Basophil% 0.6 % (0-1); Eosinophil# 0.27 X10^3/uL; Eosinophils% 5.2 % (0-5); Hematocrit 25.1 % (37-47); Hemoglobin 7.9 g/dL (12.0-15.0); Lymphocyte # 1.02 X10^3/ul (0.83-4.51); Lymphocyte % 19.7 % (19-41); Mean Corp Hgb Conc 31.5 g/dL (32-36); Mean Corpuscular Hgb 28.7 pg (27.0-32.0); Mean Corpuscular Volume 91.3 fL (81-99); Mean Platelet Vol. 10.2 fl (6.2-12.0); Monocyte# 0.51 X10^3/uL; Monocyte% 9.8 % (0-10); NRBC Flagged by Analyzer 0 % (0-5); Neutrophil # 3.33 X10^3/uL (2.7-7.7); Neutrophil % 64.3 % (47-70); Platelet Count 149 K/mm3 (150-450); RBC Distribution Width CV 13.7 % (11.6-14.6); RBC Distribution Width SD 45.6 fl (35.1-43.9); Red Blood Count 2.75 M/mm3 (4.2-5.4); White Blood Count 5.2 K/mm3 (4.4-11.0)
[2024-06-16 06:44] LABS: Anion Gap 7 (5-15); BUN 29 mg/dL (7-18); BUN/Creat Ratio 25.2 RATIO (10-20); Calcium,Total 8.3 mg/dL (8.5-10.1); Chloride 106 mmol/L (98-107); Creatinine, Serum 1.15 mg/dL (0.55-1.02); EST Glomerular Filtration Rate 47 mL/min (>60); Est Glom Filt Rate - Afr Amer 57 mL/min (>60); Estimated Creatinine Clearance 29.86 ml/min; Glucose 95 mg/dL (74-106); Potassium 3.7 mmol/L (3.5-5.1); Sodium Level 138 mmol/L (136-145)
[2024-06-16 07:31] VITALS: O2SAT 93
[2024-06-16] MEDS: Montelukast 10 MG Tablet PO (08:29)
[2024-06-16] MEDS: Cyanocobalamin 500 MCG Tablet 1000 MCG PO (08:29)
[2024-06-16] MEDS: Pantoprazole Sodium 40 MG Tablet PO ×2 (08:29→21:25)
[2024-06-16 09:06] VITALS: BP 103/60; PULSE 83; RESP 16; TEMP 36.6; O2SAT 92
--- NOTE | 2024-06-16 10:48 | PCM.PN.HOSP ---
Subjective Subjective Doing well, no issues overnight Objective Data Objective Data Vital Signs: Vital Signs Temp Pulse Resp BP Pulse Ox O2 Del Method 98 F 83 16 103/60 92 Room Air 06/16/24 09:06 06/16/24 09:06 06/16/24 09:06 06/16/24 09:06 06/16/24 09:06 06/16/24 09:06 Oxygen Delivery Method Room Air Weight: 121 lb Body Mass Index (BMI) 19.5 Intake & Output: Intake and Output for Last 24 Hours 06/15/24 06/16/24 06/17/24 03:59 03:59 03:59 Intake Total 1200 / 1200 470 / 470 Output Total 300 / 300 Balance 900 / 900 470 / 470 Lab / Micro Data 06/16/24 04:45 06/16/24 04:45 Labs: Laboratory Results - last 24 hr 06/16/24 04:45: WBC 5.2, RBC 2.75 L, Hgb 7.9 L, Hct 25.1 L, MCV 91.3, MCH 28.7, MCHC 31.5 L, RDW Std Deviation 45.6 H, RDW Coeff of Carey 13.7, Plt Count 149 L, MPV 10.2, Immature Gran % (Auto) 0.400, Neut % (Auto) 64.3, Lymph % (Auto) 19.7, [place] % (Auto) 9.8, Eos % (Auto) 5.2 H, Baso % (Auto) 0.6, Absolute Neuts (auto) 3.3, Absolute Lymphs (auto) 1.02, Nucleated RBC % 0, Sodium 138, Potassium 3.7, Chloride 106, Carbon Dioxide 25.0, Anion Gap 7, BUN 29 H, Creatinine 1.15 H, Estim Creat Clear Calc 29.86, Est GFR (MDRD) Af Amer 57 L, Est GFR (MDRD) Non-Af 47 L, BUN/Creatinine Ratio 25.2 H, Glucose 95, Calcium 8.3 L Physical Exam Narrative General: Alert, Oriented x3, Cooperative, No apparent distress HEENT: Atraumatic, PERRLA, EOMI, Normocephalic Oral: Moist Mucosa Neck: Supple, No JVD Lungs: Clear to auscultation, Normal air movement, No rhonchi, No wheeze, No rales Cardiovascular: Regular rate, Regular Rhythm, Normal S1, Normal S2, No murmurs Abdomen: Soft, Non Tender, Non-Distended, No Hepato-splenomegaly Extremities: No edema, Capillary Refill Less than 3 Seconds Skin: No rashes, No breakdown Musculoskeletal: No Tenderness to Palpation of Joints or Extremities Neurological: No focal neurological deficits, Motor Exam 5/5 strength throughout, Sensory exam intact to light touch and pain Psych/Mental Status: Normal Affect, Appropriate Assessment & Plan Assessment/Plan (1) Pelvic fracture: (2) Difficulty in walking: (3) LIA (acute kidney injury): PLAN: Plan 1. Right sided pubic rami fracture secondary to mechanical fall/LIA ? PT/OT ? Continue with pain control ? Will evaluate for the possibility of going home versus SNF ?LIA is resolved 2. Chronic diastolic CHF with pulmonary hypertension/paroxysmal A-fib/essential HTN ? Continue with home blood pressure medications, will hold her Lasix secondary to her LIA, can likely resume Lasix in 24 to 48 hours ? Continue with Eliquis as she is not a surgical candidate at this time ? Echo in 2021 with an EF of 60% and RVSP of 32 mmHg 3. Chronic iron deficiency anemia ? Continue with her iron supplementation ?Hemoglobin is down to 7.9, continue to hold Eliquis and will obtain a Hemoccult ? Will give her a dose of IV iron today 4. GERD ? Stable/continue with PPI DVT: SCDs Charges/Coding Visit Charges Inpatient E&M: 91308 Subs Hosp L2
[2024-06-16] MEDS: Polyethylene Glycol 3350 17 GM PACKET PO (10:57)
[2024-06-16] MEDS: 0.9% Saline Lock 10 ML Syringe IV (11:01)
[2024-06-16 16:20] VITALS: BP 110/58; PULSE 95; RESP 18; TEMP 36.6; O2SAT 96
[2024-06-16] MEDS: 0.9% Normal Saline (1000mL) 1,000 ML 75 ML IV (18:32)
[2024-06-16 19:40] VITALS: BP 102/46; PULSE 85; RESP 16; TEMP 36.3; O2SAT 94
[2024-06-17] VITALS (7 sets, daily range): BP systolic 98–141; BP diastolic 54–56; PULSE 86–100; RESP 16–18; TEMP 36.7–37.3; O2SAT 92–96
[2024-06-17] MEDS: oxyCODONE 5 MG Tablet PO ×2 (03:43→15:13)
[2024-06-17] MEDS: Albuterol 2.5 MG/3 ML VIAL.NEB. INHALATION (04:04)
[2024-06-17] MEDS: Acetaminophen 500 MG Tablet 1000 MG PO ×3 (06:40→20:56)
[2024-06-17 07:13] LABS: Absolute Neutrophil Count 6.1 X10^3/uL (2.0-7.7); Basophil# 0.04 X10^3/uL; Basophil% 0.5 % (0-1); Eosinophil# 0.15 X10^3/uL; Hematocrit 24.8 % (37-47); Lymphocyte % 9.3 % (19-41); Mean Corp Hgb Conc 32.3 g/dL (32-36); Mean Corpuscular Hgb 29.4 pg (27.0-32.0); Mean Corpuscular Volume 91.2 fL (81-99); Mean Platelet Vol. 10.3 fl (6.2-12.0); Monocyte# 0.54 X10^3/uL; Monocyte% 7.2 % (0-10); NRBC Flagged by Analyzer 0 % (0-5); Neutrophil # 6.05 X10^3/uL (2.7-7.7); Neutrophil % 80.6 % (47-70); Platelet Count 159 K/mm3 (150-450); RBC Distribution Width CV 13.8 % (11.6-14.6); RBC Distribution Width SD 46.1 fl (35.1-43.9); Red Blood Count 2.72 M/mm3 (4.2-5.4); White Blood Count 7.5 K/mm3 (4.4-11.0)
[2024-06-17 07:33] LABS: Anion Gap 7 (5-15); BUN 29 mg/dL (7-18); BUN/Creat Ratio 30.6 RATIO (10-20); Calcium,Total 7.8 mg/dL (8.5-10.1); Chloride 108 mmol/L (98-107); Creatinine, Serum 0.95 mg/dL (0.55-1.02); EST Glomerular Filtration Rate 59 mL/min (>60); Est Glom Filt Rate - Afr Amer 72 mL/min (>60); Estimated Creatinine Clearance 36.15 ml/min; Glucose 112 mg/dL (74-106); Potassium 3.7 mmol/L (3.5-5.1); Sodium Level 138 mmol/L (136-145)
[2024-06-17] MEDS: Pantoprazole Sodium 40 MG Tablet PO ×2 (08:47→20:56)
[2024-06-17] MEDS: Cyanocobalamin 500 MCG Tablet 1000 MCG PO (08:47)
[2024-06-17] MEDS: Polyethylene Glycol 3350 17 GM PACKET PO (08:47)
[2024-06-17] MEDS: Montelukast 10 MG Tablet PO (08:47)
[2024-06-17] MEDS: Ferrous Sulfate 325 MG Tablet PO (08:47)
--- NOTE | 2024-06-17 09:00 | CASEMGMT ---
Discharge Planning Updates sent to [facility]. Acceptance pending. Tahira Ralph DC Planning Asst.
--- NOTE | 2024-06-17 10:39 | CASEMGMT ---
Addendum entered by Tahira Ralph 06/19/24 08:20: Updates sent to [facility]. Precert remains pending. Tahira Ralph DC Planning Asst. Addendum entered by Tahira Ralph 06/17/24 11:18: [facility] asked to submit for precert. Tahira Ralph DC Planning Asst. Original Note: Discharge Planning [facility] has accepted. SW updated. Tahira Ralph DC Planning Asst.
--- NOTE | 2024-06-17 15:24 | PCM.PN.HOSP ---
Reason for Visit Reason for Visit: Diagnoses Acute kidney failure, unspecified (06/13/24) Difficulty in walking, not elsewhere classified (06/13/24) Fracture of unspecified parts of lumbosacral spine and pelvis, initial encounter for closed fracture (06/13/24) Objective Data Objective Data Vital Signs: Vital Signs Temp Pulse Resp BP Pulse Ox O2 Del Method 98.1 F 95 18 120/54 L 95 Room Air 06/17/24 15:10 06/17/24 15:10 06/17/24 15:10 06/17/24 15:10 06/17/24 15:10 06/17/24 15:10 Oxygen Delivery Method Room Air Weight: 121 lb 0.011 oz Body Mass Index (BMI) 19.5 Intake & Output: Intake and Output for Last 24 Hours 06/15/24 06/16/24 06/17/24 23:59 23:59 23:59 Intake Total 470 / 470 600 / 800 1500 / 1500 Output Total 200 / 200 Balance 470 / 470 400 / 600 1500 / 1500 Lab / Micro Data 06/17/24 06:41 06/17/24 06:41 Labs: Laboratory Results - last 24 hr 06/17/24 06:41: WBC 7.5, RBC 2.72 L, Hgb 8.0 L, Hct 24.8 L, MCV 91.2, MCH 29.4, MCHC 32.3, RDW Std Deviation 46.1 H, RDW Coeff of Carey 13.8, Plt Count 159, MPV 10.3, Immature Gran % (Auto) 0.400, Neut % (Auto) 80.6 H, Lymph % (Auto) 9.3 L, [place] % (Auto) 7.2, Eos % (Auto) 2.0, Baso % (Auto) 0.5, Absolute Neuts (auto) 6.1, Absolute Lymphs (auto) 0.70 L, Nucleated RBC % 0, Sodium 138, Potassium 3.7, Chloride 108 H, Carbon Dioxide 23.0, Anion Gap 7, BUN 29 H, Creatinine 0.95, Estim Creat Clear Calc 36.15, Est GFR (MDRD) Af Amer 72, Est GFR (MDRD) Non-Af 59 L, BUN/Creatinine Ratio 30.6 H, Glucose 112 H, Calcium 7.8 L Physical Exam Narrative Seen and examined Patient here with the pubic rami fracture fracture. She also has severe anemia. Patient not had bowel movement for occult blood testing Physical exam General: Alert, Oriented x3, Cooperative HEENT: Atraumatic, PERRLA, EOMI, Normocephalic Oral: No Gingival or Mucosal Lesions/ Ulcerations Neck: Supple, No JVD, Negative Carotid Bruits Chest wall/Lungs: Air entry diminished in bilateral lung bases. No crepitation/rhonchi Cardiovascular: Regular rate, Regular Rhythm, Normal S1, Normal S2, No M/G/R Abdomen: Bowel Sounds Present, Soft, Non Tender, Non-Distended : No dysuria. No renal angle tenderness. No suprapubic tenderness. Extremities: No edema, Capillary Refill Less than 3 Seconds Skin: No rashes, No breakdown Musculoskeletal: Mild tenderness on right pubic rami. No Tenderness to Palpation of Joints or Extremities Neurological: Cranial nerves II-XII grossly intact, DTR 2+/4. No acute focal neurological deficit. Psych/Mental Status: Normal Affect, Appropriate. Assessment & Plan Assessment/Plan (1) Pelvic fracture: (2) Difficulty in walking: (3) LIA (acute kidney injury): PLAN: Plan 1. Right sided pubic rami fracture secondary to mechanical fall/LIA ? PT/OT ? Continue with pain control ? Will evaluate for the possibility of going home versus SNF ?LIA is resolved 2. Chronic diastolic CHF with pulmonary hypertension/paroxysmal A-fib/essential HTN ? Continue with home blood pressure medications, will hold her Lasix secondary to her LIA, can likely resume Lasix in 24 to 48 hours ? Continue with Eliquis as she is not a surgical candidate at this time ? Echo in 2021 with an EF of 60% and RVSP of 32 mmHg 06/17: Blood pressure and heart rate normal. 3. Chronic iron deficiency anemia ? Continue with her iron supplementation ?Hemoglobin is down to 7.9, continue to hold Eliquis and will obtain a Hemoccult ? 06/17: Patient had IV iron infusion. Will order 1 more. H&H 8.0/24.8%. 4. GERD continue with PPI DVT: SCDs Charges/Coding Visit Charges Inpatient E&M: 10431 Subs Hosp L2
--- NOTE | 2024-06-17 15:27 | CASEMGMT ---
Social Work- SW met with pt to discuss TCU declination and [facility] acceptance. Pt is agreeable to [facility] starting precert. SW notified [facility]. SW remains available to follow. SAGAR Edwards
[2024-06-17] MEDS: 0.9% Saline Lock 10 ML Syringe IV (16:25)
[2024-06-17] MEDS: Sodium Ferric Gluconat/Sucrose 250 MG in 0.9% Normal Saline (250mL Bag) 250 ML 135 MG IV (16:25)
[2024-06-18] VITALS (7 sets, daily range): BP systolic 94–134; BP diastolic 44–65; PULSE 82–95; RESP 18–20; TEMP 36.6–37; O2SAT 93–98
[2024-06-18] MEDS: oxyCODONE 5 MG Tablet PO ×3 (02:22→22:00)
[2024-06-18] MEDS: Acetaminophen 500 MG Tablet 1000 MG PO ×3 (05:48→22:04)
[2024-06-18 06:58] LABS: Absolute Lymphocyte Count 0.73 X10^3/uL (0.83-4.51); Absolute Neutrophil Count 6.8 X10^3/uL (2.0-7.7); Basophil# 0.03 X10^3/uL; Basophil% 0.4 % (0-1); Eosinophil# 0.13 X10^3/uL; Eosinophils% 1.5 % (0-5); Hematocrit 23.6 % (37-47); Hemoglobin 7.6 g/dL (12.0-15.0); Lymphocyte # 0.73 X10^3/ul (0.83-4.51); Lymphocyte % 8.7 % (19-41); Mean Corp Hgb Conc 32.2 g/dL (32-36); Mean Corpuscular Hgb 29.2 pg (27.0-32.0); Mean Corpuscular Volume 90.8 fL (81-99); Mean Platelet Vol. 10.4 fl (6.2-12.0); Monocyte# 0.68 X10^3/uL; Monocyte% 8.1 % (0-10); NRBC Flagged by Analyzer 0 % (0-5); Neutrophil # 6.79 X10^3/uL (2.7-7.7); Neutrophil % 80.9 % (47-70); Platelet Count 178 K/mm3 (150-450); RBC Distribution Width CV 14.2 % (11.6-14.6); RBC Distribution Width SD 46.6 fl (35.1-43.9); White Blood Count 8.4 K/mm3 (4.4-11.0)
[2024-06-18 08:18] LABS: Anion Gap 8 (5-15); BUN 25 mg/dL (7-18); BUN/Creat Ratio 25.9 RATIO (10-20); Calcium,Total 8.1 mg/dL (8.5-10.1); Chloride 109 mmol/L (98-107); Creatinine, Serum 0.96 mg/dL (0.55-1.02); EST Glomerular Filtration Rate 58 mL/min (>60); Est Glom Filt Rate - Afr Amer 70 mL/min (>60); Estimated Creatinine Clearance 35.77 ml/min; Glucose 105 mg/dL (74-106); Potassium 4.3 mmol/L (3.5-5.1); Sodium Level 137 mmol/L (136-145)
[2024-06-18] MEDS: Pantoprazole Sodium 40 MG Tablet PO ×2 (09:38→22:00)
[2024-06-18] MEDS: Cyanocobalamin 500 MCG Tablet 1000 MCG PO (09:38)
[2024-06-18] MEDS: Montelukast 10 MG Tablet PO (09:38)
[2024-06-18] MEDS: Polyethylene Glycol 3350 17 GM PACKET PO ×2 (10:25→21:59)
[2024-06-18] MEDS: Bisacodyl 5 MG Tablet 10 MG PO (10:25)
[2024-06-18] MEDS: Sodium Ferric Gluconat/Sucrose 250 MG in 0.9% Normal Saline (250mL Bag) 250 ML 135 MG IV (10:55)
--- NOTE | 2024-06-18 14:25 | PCM.PN.HOSP ---
Reason for Visit Reason for Visit: Diagnoses Acute kidney failure, unspecified (06/13/24) Difficulty in walking, not elsewhere classified (06/13/24) Fracture of unspecified parts of lumbosacral spine and pelvis, initial encounter for closed fracture (06/13/24) Objective Data Objective Data Vital Signs: Vital Signs Temp Pulse Resp BP Pulse Ox O2 Del Method 98 F 94 20 H 134/65 H 98 Room Air 06/18/24 13:16 06/18/24 13:16 06/18/24 13:16 06/18/24 13:16 06/18/24 13:16 06/18/24 13:22 Oxygen Delivery Method Room Air Weight: 121 lb 0.011 oz Body Mass Index (BMI) 19.5 Intake & Output: Intake and Output for Last 24 Hours 06/16/24 06/17/24 06/18/24 23:59 23:59 23:59 Intake Total 600 / 800 1770 / 1770 270 / 270 Output Total 200 / 200 Balance 400 / 600 1770 / 1770 270 / 270 Lab / Micro Data 06/18/24 06:43 06/18/24 06:43 Labs: Laboratory Results - last 24 hr 06/18/24 06:43: WBC 8.4, RBC 2.60 L, Hgb 7.6 L, Hct 23.6 L, MCV 90.8, MCH 29.2, MCHC 32.2, RDW Std Deviation 46.6 H, RDW Coeff of Carey 14.2, Plt Count 178, MPV 10.4, Immature Gran % (Auto) 0.400, Neut % (Auto) 80.9 H, Lymph % (Auto) 8.7 L, [place] % (Auto) 8.1, Eos % (Auto) 1.5, Baso % (Auto) 0.4, Absolute Neuts (auto) 6.8, Absolute Lymphs (auto) 0.73 L, Nucleated RBC % 0, Sodium 137, Potassium 4.3, Chloride 109 H, Carbon Dioxide 20.0 L, Anion Gap 8, BUN 25 H, Creatinine 0.96, Estim Creat Clear Calc 35.77, Est GFR (MDRD) Af Amer 70, Est GFR (MDRD) Non-Af 58 L, BUN/Creatinine Ratio 25.9 H, Glucose 105, Calcium 8.1 L Physical Exam Narrative Seen and examined Patient has chronic constipation. Last BM was last . She also states she has difficulty in micturition with weak stream and sometimes incontinence. Prior related to constipation. Patient here with the pubic rami fracture fracture. She also has severe anemia. Patient not had bowel movement for occult blood testing Physical exam General: Alert, Oriented x3, Cooperative HEENT: Atraumatic, PERRLA, EOMI, Normocephalic Oral: No Gingival or Mucosal Lesions/ Ulcerations Neck: Supple, No JVD, Negative Carotid Bruits Chest wall/Lungs: Air entry diminished in bilateral lung bases. No crepitation/rhonchi Cardiovascular: Regular rate, Regular Rhythm, Normal S1, Normal S2, No M/G/R Abdomen: Bowel Sounds Present, Soft, Non Tender, Non-Distended : No dysuria. No renal angle tenderness. No suprapubic tenderness. Extremities: No edema, Capillary Refill Less than 3 Seconds Skin: No rashes, No breakdown Musculoskeletal: Mild tenderness on right pubic rami. No Tenderness to Palpation of Joints or Extremities Neurological: Cranial nerves II-XII grossly intact, DTR 2+/4. No acute focal neurological deficit. Psych/Mental Status: Normal Affect, Appropriate. Assessment & Plan Assessment/Plan (1) Pelvic fracture: (2) Difficulty in walking: (3) LIA (acute kidney injury): PLAN: Plan 1. Right sided pubic rami fracture secondary to mechanical fall/LIA ? PT/OT ? Continue with pain control ? Will evaluate for the possibility of going home versus SNF ?LIA is resolved 2. Chronic diastolic CHF with pulmonary hypertension/paroxysmal A-fib/essential HTN ? Continue with home blood pressure medications, will hold her Lasix secondary to her LIA, can likely resume Lasix in 24 to 48 hours ? Continue with Eliquis as she is not a surgical candidate at this time ? Echo in 2021 with an EF of 60% and RVSP of 32 mmHg 06/17: Blood pressure and heart rate normal. 3. Chronic iron deficiency anemia ? Continue with her iron supplementation ?Hemoglobin is down to 7.9, continue to hold Eliquis and will obtain a Hemoccult ? 06/17: Patient had IV iron infusion. Will order 1 more. H&H 8.0/24.8%. 4. GERD continue with PPI Chronic constipation and intermittent urinary incontinence: Dulcolax 10 mg oral and if unsuccessful then Dulcolax suppository. On MiraLAX 17 g p.o. twice daily and senna S2 tablet twice daily. DVT: SCDs Charges/Coding Visit Charges Inpatient E&M: 44577 Subs Hosp L2
[2024-06-18] MEDS: Bisacodyl 10 MG Suppository RC (17:59)
[2024-06-18] MEDS: Senna/Docusate Sodium 1 Tablet 2 TABLET PO (21:59)
[2024-06-19] MEDS: Acetaminophen 500 MG Tablet 1000 MG PO ×3 (06:00→20:55)
[2024-06-19 07:42] LABS: Absolute Lymphocyte Count 0.79 X10^3/uL (0.83-4.51); Absolute Neutrophil Count 5.3 X10^3/uL (2.0-7.7); Basophil# 0.04 X10^3/uL; Basophil% 0.6 % (0-1); Eosinophil# 0.15 X10^3/uL; Eosinophils% 2.1 % (0-5); Hematocrit 23.6 % (37-47); Hemoglobin 7.5 g/dL (12.0-15.0); Lymphocyte # 0.79 X10^3/ul (0.83-4.51); Lymphocyte % 11.3 % (19-41); Mean Corp Hgb Conc 31.8 g/dL (32-36); Mean Corpuscular Hgb 29.4 pg (27.0-32.0); Mean Corpuscular Volume 92.5 fL (81-99); Mean Platelet Vol. 10.4 fl (6.2-12.0); NRBC Flagged by Analyzer 0 % (0-5); Neutrophil # 5.31 X10^3/uL (2.7-7.7); Neutrophil % 75.7 % (47-70); Platelet Count 197 K/mm3 (150-450); RBC Distribution Width CV 14.2 % (11.6-14.6); RBC Distribution Width SD 48.1 fl (35.1-43.9); Red Blood Count 2.55 M/mm3 (4.2-5.4)
[2024-06-19 07:58] LABS: Anion Gap 7 (5-15); BUN 21 mg/dL (7-18); BUN/Creat Ratio 22.8 RATIO (10-20); Calcium,Total 8.3 mg/dL (8.5-10.1); Chloride 110 mmol/L (98-107); Creatinine, Serum 0.92 mg/dL (0.55-1.02); EST Glomerular Filtration Rate 61 mL/min (>60); Est Glom Filt Rate - Afr Amer 74 mL/min (>60); Estimated Creatinine Clearance 37.33 ml/min; Glucose 102 mg/dL (74-106); Sodium Level 139 mmol/L (136-145)
[2024-06-19 08:59] VITALS: BP 107/50; PULSE 85; RESP 20; TEMP 36.4; O2SAT 95
[2024-06-19] MEDS: Pantoprazole Sodium 40 MG Tablet PO ×2 (09:07→20:53)
[2024-06-19] MEDS: Senna/Docusate Sodium 1 Tablet 2 TABLET PO ×2 (09:07→20:53)
[2024-06-19] MEDS: Cyanocobalamin 500 MCG Tablet 1000 MCG PO (09:07)
[2024-06-19] MEDS: Polyethylene Glycol 3350 17 GM PACKET PO ×2 (09:07→20:53)
[2024-06-19] MEDS: Ferrous Sulfate 325 MG Tablet PO (09:08)
[2024-06-19] MEDS: Montelukast 10 MG Tablet PO (09:08)
[2024-06-19] MEDS: oxyCODONE 5 MG Tablet PO ×3 (09:12→22:28)
[2024-06-19 17:20] VITALS: BP 117/66; PULSE 89; RESP 17; TEMP 36.7; O2SAT 92
--- NOTE | 2024-06-19 17:21 | PN.HOSP_ITS ---
Reason for Visit Reason for Visit: Diagnoses Acute kidney failure, unspecified (06/13/24) Difficulty in walking, not elsewhere classified (06/13/24) Fracture of unspecified parts of lumbosacral spine and pelvis, initial encounter for closed fracture (06/13/24) Objective Data Objective Data Vital Signs: Vital Signs Temp Pulse Resp BP Pulse Ox O2 Del Method 98.1 F 89 17 117/66 92 Room Air 06/19/24 17:20 06/19/24 17:20 06/19/24 17:20 06/19/24 17:20 06/19/24 17:20 06/19/24 17:20 Oxygen Delivery Method Room Air Weight: 121 lb 0.011 oz Body Mass Index (BMI) 19.5 Intake & Output: Intake and Output for Last 24 Hours 06/17/24 06/18/24 06/19/24 23:59 23:59 23:59 Intake Total 1770 / 1770 270 / 470 560 / 560 Balance 1770 / 1770 270 / 470 560 / 560 Lab / Micro Data 06/19/24 05:37 06/19/24 05:37 Labs: Laboratory Results - last 24 hr 06/19/24 05:37: WBC 7.0, RBC 2.55 L, Hgb 7.5 L, Hct 23.6 L, MCV 92.5, MCH 29.4, MCHC 31.8 L, RDW Std Deviation 48.1 H, RDW Coeff of Carey 14.2, Plt Count 197, MPV 10.4, Immature Gran % (Auto) 0.300, Neut % (Auto) 75.7 H, Lymph % (Auto) 11.3 L, [place] % (Auto) 10.0, Eos % (Auto) 2.1, Baso % (Auto) 0.6, Absolute Neuts (auto) 5.3, Absolute Lymphs (auto) 0.79 L, Nucleated RBC % 0, Sodium 139, Potassium 4.0, Chloride 110 H, Carbon Dioxide 22.0, Anion Gap 7, BUN 21 H, Creatinine 0.92, Estim Creat Clear Calc 37.33, Est GFR (MDRD) Af Amer 74, Est GFR (MDRD) Non-Af 61, BUN/Creatinine Ratio 22.8 H, Glucose 102, Calcium 8.3 L Micro: Microbiology 06/18/24 19:00 Stool Stool Occult Blood ([facility]) - Final Physical Exam Narrative Seen and examined Patient moved bowel yesterday. She still has severe anemia 7.5 even after 3 IV infusion. It is normocytic anemia with normal platelet count and WBC count. She also states she has difficulty in micturition with weak stream and sometimes incontinence. Patient here with the pubic rami fracture fracture. She also has severe anemia. Physical exam General: Alert, Oriented x3, Cooperative HEENT: Atraumatic, PERRLA, EOMI, Normocephalic Oral: No Gingival or Mucosal Lesions/ Ulcerations Neck: Supple, No JVD, Negative Carotid Bruits Chest wall/Lungs: Air entry diminished in bilateral lung bases. No crepitation/rhonchi Cardiovascular: Regular rate, Regular Rhythm, Normal S1, Normal S2, No M/G/R Abdomen: Bowel Sounds Present, Soft, Non Tender, Non-Distended : No dysuria. No renal angle tenderness. No suprapubic tenderness. Extremities: No edema, Capillary Refill Less than 3 Seconds Skin: No rashes, No breakdown Musculoskeletal: Mild tenderness on right pubic rami. No Tenderness to Palpation of Joints or Extremities Neurological: Cranial nerves II-XII grossly intact, DTR 2+/4. No acute focal neurological deficit. Psych/Mental Status: Normal Affect, Appropriate. Assessment & Plan Assessment/Plan (1) Pelvic fracture: (2) Difficulty in walking: (3) LIA (acute kidney injury): PLAN: Plan 1. Right sided pubic rami fracture secondary to mechanical fall/LIA ? PT/OT ? Continue with pain control ? Will evaluate for the possibility of going home versus SNF ?LIA is resolved 2. Chronic diastolic CHF with pulmonary hypertension/paroxysmal A-fib/essential HTN ? Continue with home blood pressure medications, will hold her Lasix secondary to her LIA, can likely resume Lasix in 24 to 48 hours ? Continue with Eliquis as she is not a surgical candidate at this time ? Echo in 2021 with an EF of 60% and RVSP of 32 mmHg 06/17: Blood pressure and heart rate normal. 3. Chronic iron deficiency anemia ? Continue with her iron supplementation ?Hemoglobin is down to 7.9, continue to hold Eliquis and will obtain a Hemoccult ? 06/17: Patient had IV iron infusion. Will order 1 more. H&H 8.0/24.8%. 06/19: Hemoglobin still 7.5. Stool for occult blood negative. Patient has follow-up with wireless retail manager Dr. Devonte Mares in July. I think she does not have iron versus anemia as MCV is normal but probably other causes including inflammatory anemia or anemia of chronic disease or ineffective erythropoiesis/MDS 4. GERD continue with PPI Chronic constipation and intermittent urinary incontinence: Dulcolax 10 mg oral and if unsuccessful then Dulcolax suppository. On MiraLAX 17 g p.o. twice daily and senna S2 tablet twice daily. DVT: SCDs Charges/Coding Visit Charges Inpatient E&M: 30581 Subs Hosp L2
[2024-06-19] MEDS: 0.9% Saline Lock 10 ML Syringe IV (17:23)
[2024-06-19 21:00] VITALS: BP 133/76; PULSE 86; RESP 17; TEMP 37.1; O2SAT 94
[2024-06-20] VITALS (17 sets, daily range): BP systolic 98–152; BP diastolic 48–94; PULSE 88–116; RESP 15–20; TEMP 36.5–37.2; O2SAT 92–99
[2024-06-20] MEDS: Albuterol 2.5 MG/3 ML VIAL.NEB. INHALATION ×2 (00:02→05:56)
[2024-06-20] MEDS: Acetaminophen 500 MG Tablet 1000 MG PO ×3 (05:27→20:57)
[2024-06-20] MEDS: oxyCODONE 5 MG Tablet PO ×2 (05:30→11:28)
--- NOTE | 2024-06-20 06:32 | EKG12_ITS ---
Test Reason : CP Blood Pressure : */* mmHG Vent. Rate : 103 BPM Atrial Rate : * BPM P-R Int : * ms QRS Dur : 96 ms QT Int : 356 ms P-R-T Axes : * -38 75 degrees QTcB Int : 466 ms Atrial fibrillation with rapid ventricular response Left axis deviation Pulmonary disease pattern Incomplete right bundle branch block Abnormal ECG When compared with ECG of 26-Dec-2021 19:58, Incomplete right bundle branch block is now Present Confirmed by Harley Hernandez [id number]), subeditor JAMEE JAMESON ([id number]) on 06/21/2024 6:50:39 AM Referred By: Jose Osullivan Confirmed By: Harley Hernandez
--- NOTE | 2024-06-20 06:33 | NURSING ---
Pt c/o chest pain across her chest. Feels like her muscles are all tight and squeezing. Resp called for ekg.
--- NOTE | 2024-06-20 07:08 | CT_ITS ---
STUDY: CTA CHEST REASON FOR EXAM: Female, 88 years old. r/o pe, chest pain RADIATION DOSAGE (If Supplied By Facility): CTDIvol = ( 24.83 ) mGy, DLP = ( 286.27 ) mGycm TECHNIQUE: The examination was performed with the intravenous administration of IV 100mL Isovue-370. Post-processing of the angiographic images was performed, with multiplanar reformation and 3D reconstruction. Individualized dose optimization techniques were used for this CT. COMPARISON: Chest x-ray dated December 26, 2021 FINDINGS: * Moderate sized bilateral pleural effusions are present with moderate bibasilar atelectasis. Mild patchy consolidation is also present in the hilar and superior segment of the right lower lobe. * Diffuse interstitial thickening and edema and mild cystic emphysematous changes * Hyperinflated lungs * No nodules or masses or spiculated lesions are seen * No pneumothorax * Normal trachea and bilateral mainstem bronchi Normal enhancement of the main pulmonary artery and right and left pulmonary arteries. Normal enhancement of the bilateral peripheral pulmonary arteries. There is no demonstrated pulmonary embolism. There is atherosclerotic calcification of the aortic arch with tortuosity. There is no demonstrated aortic dissection. Sternal cerclage wires and vascular clips are present from a prior sternotomy and coronary artery bypass graft procedure (CABG). There are calcifications of the coronary arteries. Mild cardiomegaly. No pericardial effusion is present. Normal mediastinum. Normal hilar regions. Normal visualized trachea and bronchi. Normal chest wall structures. There are degenerative changes of thoracic spine. Normal visualized upper abdomen. Moderate degenerative changes are present in the right shoulder. No demonstrated lytic or blastic process. CT/CTA Chest W/WO Contrast IMPRESSION: No demonstrated pulmonary embolism or arterial dissection. 1. Moderate sized bilateral pleural effusions are present with moderate bibasilar atelectasis. 2. Right lower lobe mild pneumonia = Mild patchy consolidation is also present in the hilar and superior segment of the right lower lobe. 3. Diffuse interstitial thickening and edema and mild cystic emphysematous changes 4. Hyperinflated lungs 5. No nodules or masses or spiculated lesions are seen Electronically Signed: Natanael Srinivasan MD at 13:03 EST ,
[2024-06-20 07:40] LABS: Anion Gap 9 (5-15); BUN 21 mg/dL (7-18); BUN/Creat Ratio 21.8 RATIO (10-20); Calcium,Total 8.6 mg/dL (8.5-10.1); Chloride 110 mmol/L (98-107); Creatinine, Serum 0.96 mg/dL (0.55-1.02); EST Glomerular Filtration Rate 58 mL/min (>60); Est Glom Filt Rate - Afr Amer 70 mL/min (>60); Estimated Creatinine Clearance 35.77 ml/min; Glucose 118 mg/dL (74-106); Magnesium 2.7 mg/dL (1.6-2.6); Sodium Level 138 mmol/L (136-145)
[2024-06-20 07:47] LABS: Phosphorus 3.5 mg/dL (2.5-4.9)
[2024-06-20 08:01] LABS: Troponin-I HS 29 pg/mL (3.0-54.0)
[2024-06-20] MEDS: HYDROmorphone 1 MG/ML Syringe 0.5 MG IV (08:15)
[2024-06-20] MEDS: 0.9% Saline Lock 10 ML Syringe IV ×2 (08:15→20:22)
[2024-06-20 08:43] LABS: Absolute Lymphocyte Count 0.75 X10^3/uL (0.83-4.51); Absolute Neutrophil Count 6.7 X10^3/uL (2.0-7.7); Basophil# 0.04 X10^3/uL; Basophil% 0.5 % (0-1); Eosinophil# 0.09 X10^3/uL; Eosinophils% 1.1 % (0-5); Hematocrit 26.5 % (37-47); Hemoglobin 8.2 g/dL (12.0-15.0); Lymphocyte # 0.75 X10^3/ul (0.83-4.51); Lymphocyte % 9.1 % (19-41); Mean Corp Hgb Conc 30.9 g/dL (32-36); Mean Corpuscular Hgb 28.6 pg (27.0-32.0); Mean Corpuscular Volume 92.3 fL (81-99); Monocyte# 0.56 X10^3/uL; Monocyte% 6.8 % (0-10); NRBC Flagged by Analyzer 0 % (0-5); Neutrophil # 6.72 X10^3/uL (2.7-7.7); Platelet Count 253 K/mm3 (150-450); RBC Distribution Width CV 14.3 % (11.6-14.6); RBC Distribution Width SD 48.4 fl (35.1-43.9); Red Blood Count 2.87 M/mm3 (4.2-5.4); White Blood Count 8.2 K/mm3 (4.4-11.0)
[2024-06-20] MEDS: 0.9% Normal Saline (1000mL) 1,000 ML 50 ML IV (08:48)
[2024-06-20] MEDS: APIXABAN 2.5 MG TABLET (WCH) PO ×2 (08:48→20:56)
[2024-06-20] MEDS: Montelukast 10 MG Tablet PO (08:49)
[2024-06-20] MEDS: Senna/Docusate Sodium 1 Tablet 2 TABLET PO (08:49)
[2024-06-20] MEDS: Pantoprazole Sodium 40 MG Tablet PO ×2 (08:49→20:58)
[2024-06-20] MEDS: Cyanocobalamin 500 MCG Tablet 1000 MCG PO (08:49)
[2024-06-20 09:39] LABS: Troponin-I HS 45 pg/mL (3.0-54.0)
[2024-06-20] MEDS: Furosemide 20 MG/2 ML VIAL IV ×2 (13:12→20:04)
[2024-06-20] MEDS: QUEtiapine 25 MG Tablet 50 MG PO (13:12)
--- NOTE | 2024-06-20 13:14 | PN.HOSP_ITS ---
Reason for Visit Reason for Visit: Diagnoses Acute kidney failure, unspecified (06/13/24) Difficulty in walking, not elsewhere classified (06/13/24) Fracture of unspecified parts of lumbosacral spine and pelvis, initial encounter for closed fracture (06/13/24) Objective Data Objective Data Vital Signs: Vital Signs Temp Pulse Resp BP Pulse Ox O2 Del Method O2 Flow Rate 97.7 F L 94 16 117/79 97 Nasal Cannula 2 06/20/24 11:32 06/20/24 11:32 06/20/24 11:32 06/20/24 11:32 06/20/24 11:32 06/20/24 11:32 06/20/24 11:32 Oxygen Flow Rate (L/min) 2 Oxygen Delivery Method Nasal Cannula Weight: 121 lb 0.011 oz Body Mass Index (BMI) 19.5 Intake & Output: Intake and Output for Last 24 Hours 06/18/24 06/19/24 06/20/24 23:59 23:59 23:59 Intake Total 270 / 470 980 / 1220 815.83 / 815.83 Balance 270 / 470 980 / 1220 815.83 / 815.83 Lab / Micro Data 06/20/24 07:12 06/20/24 07:12 Labs: Laboratory Results - last 24 hr 06/20/24 07:12: WBC 8.2, RBC 2.87 L, Hgb 8.2 L, Hct 26.5 L, MCV 92.3, MCH 28.6, MCHC 30.9 L, RDW Std Deviation 48.4 H, RDW Coeff of Carey 14.3, Plt Count 253, MPV 10.0, Immature Gran % (Auto) 0.500, Neut % (Auto) 82.0 H, Lymph % (Auto) 9.1 L, Bay % (Auto) 6.8, Eos % (Auto) 1.1, Baso % (Auto) 0.5, Absolute Neuts (auto) 6.7, Absolute Lymphs (auto) 0.75 L, Nucleated RBC % 0, Sodium 138, Potassium 4.0, Chloride 110 H, Carbon Dioxide 20.0 L, Anion Gap 9, BUN 21 H, Creatinine 0.96, Estim Creat Clear Calc 35.77, Est GFR (MDRD) Af Amer 70, Est GFR (MDRD) Non-Af 58 L, BUN/Creatinine Ratio 21.8 H, Glucose 118 H, Calcium 8.6, Phosphorus 3.5, Magnesium 2.7 H, Troponin I High Sens 29 06/20/24 09:08: Troponin I High Sens 45 Micro: Microbiology 06/18/24 19:00 Stool Stool Occult Blood ([facility]) - Final Radiography Diagnostic Testing: Radiology Impression Chest CTA 06/20/24 07:08 IMPRESSION: No demonstrated pulmonary embolism or arterial dissection. 1. Moderate sized bilateral pleural effusions are present with moderate bibasilar atelectasis. 2. Right lower lobe mild pneumonia = Mild patchy consolidation is also present in the hilar and superior segment of the right lower lobe. 3. Diffuse interstitial thickening and edema and mild cystic emphysematous changes 4. Hyperinflated lungs 5. No nodules or masses or spiculated lesions are seen Electronically Signed: Natanael Srinivasan MD at 13:03 EST Reading Location ID and State: [address] [place] [address] , Service support , Physical Exam Narrative Seen and examined Complaint of chest pain and shortness of breath earlier in the morning. It lasted for about 10 minutes and then resolved. Patient is chest pain-free. She stated she could not sleep last night and feeling restless and or some short of breath. Discussed with the patient some nausea meds Physical exam General: Alert, Oriented x3, Cooperative HEENT: Atraumatic, PERRLA, EOMI, Normocephalic Oral: No Gingival or Mucosal Lesions/ Ulcerations Neck: Supple, No JVD, Negative Carotid Bruits Chest wall/Lungs: Air entry diminished in bilateral lung bases. No crepitation/rhonchi Cardiovascular: A-fib, Normal S1, Normal S2, soft murmur at cardiac apex Abdomen: Bowel Sounds Present, Soft, Non Tender, Non-Distended : No dysuria. No renal angle tenderness. No suprapubic tenderness. Extremities: No edema, Capillary Refill Less than 3 Seconds Skin: No rashes, No breakdown Musculoskeletal: Mild tenderness on right pubic rami. No Tenderness to Palpation of Joints or Extremities Neurological: Cranial nerves II-XII grossly intact, DTR 2+/4. No acute focal neurological deficit. Psych/Mental Status: Flat affect anxiety Assessment & Plan Assessment/Plan (1) Pelvic fracture: (2) Difficulty in walking: (3) LIA (acute kidney injury): PLAN: Plan 1. Right sided pubic rami fracture secondary to mechanical fall/LIA ? PT/OT ? Continue with pain control ? Will evaluate for the possibility of going home versus SNF ?LIA is resolved Atypical chest pain and shortness of breath, exact etiology unclear possible due to bilateral pleural effusion and right basilar pneumonia: Patient had mild dull ache chest pain in the morning from right to left with shortness of breath. She states she could not sleep last night and was little short of breath. CTPA was done which shows moderate-sized bilateral pleural effusion, right more than left but negative for PE and right basilar consolidation. Patient started on IV antibiotic. Pneumonia workup ordered. Patient started on IV ceftriaxone and Zithromax. Serial troponin shows mild delta increase. Twelve-lead EKG shows A- fib with RVR 103 bpm, LAD, LAFB. QTc 466 ms. Discussed with balance truer Dr. Hernandez. 2D echo ordered. Patient on Eliquis 2.5 mg for paroxysmal A-fib, regimen. Lasix also resumed. Patient BP is 117/79 therefore started on 20 mg IV twice daily. Previous EKG showed similar A-fib about 2 years ago 2. Chronic diastolic CHF with pulmonary hypertension/paroxysmal A-fib/essential HTN ? Continue with home blood pressure medications, will hold her Lasix secondary to her LIA, can likely resume Lasix in 24 to 48 hours ? Continue with Eliquis as she is not a surgical candidate at this time ? Echo in 2021 with an EF of 60% and RVSP of 32 mmHg 06/17: Blood pressure and heart rate normal. 3. Chronic iron deficiency anemia ? Continue with her iron supplementation ?Hemoglobin is down to 7.9, continue to hold Eliquis and will obtain a Hemoccult ? 06/17: Patient had IV iron infusion. Will order 1 more. H&H 8.0/24.8%. 06/19: Hemoglobin still 7.5. Stool for occult blood negative. Patient has follow-up with education reviewer Dr. Devonte Mares in July. I think she does not have iron versus anemia as MCV is normal but probably other causes including inflammatory anemia or anemia of chronic disease or ineffective erythropoiesis/MDS 06/20: Hemoglobin 8.2. 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 4. GERD continue with PPI 5. Chronic constipation and intermittent urinary incontinence: Dulcolax 10 mg oral and if unsuccessful then Dulcolax suppository. On MiraLAX 17 g p.o. twice daily and senna S2 tablet twice daily. DVT: SCDs Chest CTA 06/20/24 07:08 IMPRESSION: No demonstrated pulmonary embolism or arterial dissection. 1. Moderate sized bilateral pleural effusions are present with moderate bibasilar atelectasis. 2. Right lower lobe mild pneumonia = Mild patchy consolidation is also present in the hilar and superior segment of the right lower lobe. 3. Diffuse interstitial thickening and edema and mild cystic emphysematous changes 4. Hyperinflated lungs 5. No nodules or masses or spiculated lesions are seen Charges/Coding Visit Charges Inpatient E&M: 37374 Subs Hosp L2
[2024-06-20] MEDS: Azithromycin 250 MG Tablet 500 MG PO (13:28)
[2024-06-20] MEDS: guaiFENesin 1,200 MG Tablet 1200 MG PO (13:28)
[2024-06-20 13:37] LABS: Troponin-I HS 65 pg/mL (3.0-54.0)
--- NOTE | 2024-06-20 14:10 | ECHOD_ITS ---
Reason For Study: Dyspnea/SOB Procedure This was a 2D Doppler, Color Flow transthoracic echocardiogram. The study was technically difficult. Exam performed portable in patient room. Left Ventricle Normal LV size. The estimated ejection fraction is 60 %. Unable to assess diastolic dysfunction due to arrhythmia. No regional wall motion abnormalities noted. Right Ventricle Normal RV size. Normal systolic function. Atria The left atrium is mildly enlarged. The right atrium is mildly enlarged. Mitral Valve Mean transmitral valve gradient 8 mmHg. Mild restriction of the mitral valve leaflets. Trivial mitral valve insufficiency. An annuloplasty ring is noted in the mitral position. Tricuspid Valve Mild (1+) tricuspid valve insufficiency. Pulmonary artery systolic pressure is 34 mmHg. An annuloplasty ring is noted in the tricuspid position. Aortic Valve Trisinus/trileaflet aortic valve. Pulmonic Valve Normal pulmonic valve. Great Vessels Normal aortic root. Pericardium/Pleural No pericardial effusion. Large pleural effusion noted. MMode/2D Measurements & Calculations LVIDd: 4.0 cm IVSd: 1.1 cm LVOT diam: 1.9 cm LVIDs: 2.7 cm LVPWd: 0.92 cm LVOT area: 2.8 cm2 RVDd: 3.2 cm FS: 32.6 % asc Aorta Diam: 3.1 cm LAV(MOD-bp): 64.7 ml LA A4 area: 22.3 cm2 LAV(MOD-bp) Indexed: 40.1 ml/m2 LAV(MOD-sp2): 66.5 ml LAV(MOD-sp4): 62.5 ml RA A4 area: 23.3 cm2 Doppler Measurements & Calculations MV E max amy: 179.3 cm/sec MV V2 max: 228.2 cm/sec Ao V2 max: 103.8 cm/sec MV max P.9 mmHg Ao max P.3 mmHg MV V2 mean: 130.1 cm/sec Ao V2 mean: 74.2 cm/sec MV mean P.2 mmHg Ao mean P.5 mmHg MV V2 VTI: 45.4 cm Ao V2 VTI: 17.8 cm MVA(VTI): 1.1 cm2 AV (velocity ratio): 1.0 VEENA(I,D): 2.9 cm2 VEENA(V,D): 2.9 cm2 LV V1 max: 110.0 cm/sec SV(LVOT): 50.8 ml PA V2 max: 87.8 cm/sec LV V1 max P.9 mmHg LV V1 mean P.6 mmHg LV V1 mean: 75.7 cm/sec LV V1 VTI: 18.3 cm TR max amy: 253.6 cm/sec TR max P.7 mmHg ECHO/Echo Complete Interpretation Summary The estimated ejection fraction is 60 %. The left atrium is mildly enlarged. The right atrium is mildly enlarged. Mean transmitral valve gradient 8 mmHg. Mild (1+) tricuspid valve insufficiency. Pulmonary artery systolic pressure is 34 mmHg. Large pleural effusion noted. Ordering Physician: Jack Booth Referring Physician: Jose Osullivan Performed By: Jose Flores and Student
[2024-06-20] MEDS: Ceftriaxone 2 GM in 0.9% Normal Saline (50mL MB+) 50 ML IV (14:47)
[2024-06-20] MEDS: Metoprolol(XL)Succ 25 MG Tablet PO (23:57)
[2024-06-21] VITALS (9 sets, daily range): BP systolic 106–112; BP diastolic 59–66; PULSE 79–96; RESP 15–18; TEMP 36.6–37; O2SAT 93–97
[2024-06-21 06:32] LABS: Absolute Lymphocyte Count 0.67 X10^3/uL (0.83-4.51); Absolute Neutrophil Count 6.3 X10^3/uL (2.0-7.7); Basophil# 0.04 X10^3/uL; Basophil% 0.5 % (0-1); Eosinophil# 0.16 X10^3/uL; Hematocrit 26.1 % (37-47); Hemoglobin 7.8 g/dL (12.0-15.0); Lymphocyte # 0.67 X10^3/ul (0.83-4.51); Lymphocyte % 8.5 % (19-41); Mean Corp Hgb Conc 29.9 g/dL (32-36); Mean Corpuscular Hgb 28.2 pg (27.0-32.0); Mean Corpuscular Volume 94.2 fL (81-99); Mean Platelet Vol. 9.9 fl (6.2-12.0); Monocyte# 0.69 X10^3/uL; Monocyte% 8.8 % (0-10); NRBC Flagged by Analyzer 0 % (0-5); Neutrophil # 6.26 X10^3/uL (2.7-7.7); Neutrophil % 79.9 % (47-70); Platelet Count 267 K/mm3 (150-450); RBC Distribution Width CV 14.5 % (11.6-14.6); RBC Distribution Width SD 49.1 fl (35.1-43.9); Red Blood Count 2.77 M/mm3 (4.2-5.4); White Blood Count 7.8 K/mm3 (4.4-11.0)
[2024-06-21 06:53] LABS: Anion Gap 5 (5-15); BUN 21 mg/dL (7-18); BUN/Creat Ratio 21.1 RATIO (10-20); Calcium,Total 8.4 mg/dL (8.5-10.1); Chloride 110 mmol/L (98-107); EST Glomerular Filtration Rate 56 mL/min (>60); Est Glom Filt Rate - Afr Amer 68 mL/min (>60); Estimated Creatinine Clearance 34.34 ml/min; Glucose 89 mg/dL (74-106); Potassium 4.9 mmol/L (3.5-5.1); Sodium Level 139 mmol/L (136-145)
[2024-06-21] MEDS: Acetaminophen 500 MG Tablet 1000 MG PO ×3 (06:59→21:48)
[2024-06-21] MEDS: 0.9% Saline Lock 10 ML Syringe IV (08:10)
[2024-06-21] MEDS: Metoprolol(XL)Succ 25 MG Tablet PO ×2 (08:10→21:48)
[2024-06-21] MEDS: Ceftriaxone 2 GM in 0.9% Normal Saline (50mL MB+) 50 ML IV (08:10)
[2024-06-21] MEDS: Pantoprazole Sodium 40 MG Tablet PO ×2 (08:11→21:43)
[2024-06-21] MEDS: Cyanocobalamin 500 MCG Tablet 1000 MCG PO (08:11)
[2024-06-21] MEDS: Montelukast 10 MG Tablet PO (08:11)
[2024-06-21] MEDS: Azithromycin 250 MG Tablet 500 MG PO (08:11)
[2024-06-21] MEDS: Furosemide 20 MG/2 ML VIAL IV ×2 (08:12→16:37)
[2024-06-21] MEDS: Ferrous Sulfate 325 MG Tablet PO (08:12)
[2024-06-21] MEDS: APIXABAN 2.5 MG TABLET (WCH) PO ×2 (08:15→21:48)
[2024-06-21] MEDS: oxyCODONE 5 MG Tablet PO ×2 (10:36→16:39)
--- NOTE | 2024-06-21 13:31 | PN.HOSP_ITS ---
Reason for Visit Reason for Visit: Diagnoses Acute kidney failure, unspecified (06/13/24) Difficulty in walking, not elsewhere classified (06/13/24) Fracture of unspecified parts of lumbosacral spine and pelvis, initial encounter for closed fracture (06/13/24) Objective Data Objective Data Vital Signs: Vital Signs Temp Pulse Resp BP Pulse Ox O2 Del Method O2 Flow Rate 98.1 F 91 18 112/59 L 94 Nasal Cannula 2 06/21/24 09:00 06/21/24 09:00 06/21/24 09:00 06/21/24 09:00 06/21/24 09:00 06/21/24 09:00 06/21/24 09:00 Oxygen Flow Rate (L/min) 2 Oxygen Delivery Method Nasal Cannula Weight: 121 lb 0.011 oz Body Mass Index (BMI) 19.5 Intake & Output: Intake and Output for Last 24 Hours 06/19/24 06/20/24 06/21/24 23:59 23:59 23:59 Intake Total 980 / 1220 965.83 / 965.83 550 / 550 Output Total 1500 / 1500 Balance 980 / 1220 965.83 / 765.83 -950 / -950 Lab / Micro Data 06/21/24 05:21 06/21/24 05:21 Labs: Laboratory Results - last 24 hr 06/20/24 13:03: Troponin I High Sens 65 H 06/21/24 05:21: WBC 7.8, RBC 2.77 L, Hgb 7.8 L, Hct 26.1 L, MCV 94.2, MCH 28.2, MCHC 29.9 L, RDW Std Deviation 49.1 H, RDW Coeff of Carey 14.5, Plt Count 267, MPV 9.9, Immature Gran % (Auto) 0.300, Neut % (Auto) 79.9 H, Lymph % (Auto) 8.5 L, Young % (Auto) 8.8, Eos % (Auto) 2.0, Baso % (Auto) 0.5, Absolute Neuts (auto) 6.3, Absolute Lymphs (auto) 0.67 L, Nucleated RBC % 0, Sodium 139, Potassium 4.9, Chloride 110 H, Carbon Dioxide 24.0, Anion Gap 5, BUN 21 H, Creatinine 1.00, Estim Creat Clear Calc 34.34, Est GFR (MDRD) Af Amer 68, Est GFR (MDRD) Non-Af 56 L, BUN/Creatinine Ratio 21.1 H, Glucose 89, Calcium 8.4 L Micro: Microbiology 06/20/24 19:45 Urine, Clean Catch Legionella Antigen - Final 06/20/24 19:45 Urine, Clean Catch Streptococcus pneumoniae Antigen (M - Final 06/20/24 13:20 Nasal Secretion MRSA (PCR) - Final 06/20/24 13:20 Mucosa - Nose SARS-CoV-2, Influenza & RSV (PCR) - Final 06/18/24 19:00 Stool Stool Occult Blood ([facility]) - Final Physical Exam Narrative Seen and examined Patient does not have chest pain today. Sometimes he gets sometimes short of breath on walking but mostly she is fine. Physical exam General: Alert, Oriented x3, Cooperative HEENT: Atraumatic, PERRLA, EOMI, Normocephalic Oral: No Gingival or Mucosal Lesions/ Ulcerations Neck: Supple, No JVD, Negative Carotid Bruits Chest wall/Lungs: Air entry diminished in bilateral lung bases. No crepitation/rhonchi Cardiovascular: A-fib, Normal S1, Normal S2, soft murmur at cardiac apex Abdomen: Bowel Sounds Present, Soft, Non Tender, Non-Distended : No dysuria. No renal angle tenderness. No suprapubic tenderness. Extremities: No edema, Capillary Refill Less than 3 Seconds Skin: No rashes, No breakdown Musculoskeletal: Mild deep tenderness on right pubic rami. No Tenderness to Palpation of Joints or Extremities Neurological: Cranial nerves II-XII grossly intact, DTR 2+/4. No acute focal neurological deficit. Psych/Mental Status: Flat affect anxiety Assessment & Plan Assessment/Plan (1) Pelvic fracture: (2) Difficulty in walking: (3) LIA (acute kidney injury): PLAN: Plan 88-year-old female was admitted with right hip/pelvic pain after a fall at home. She has history of bilateral hip replacement and uses 4 point walker for ambulation. 1. Right sided pubic rami fracture secondary to mechanical fall/LIA ? PT/OT ? Continue with pain control ? Will evaluate for the possibility of going home versus SNF Her admitting creatinine was high 2.17 therefore Lasix was held. ?LIA is resolved It dropped to 0.92 and after starting Lasix started going up today 1.0 2. Atypical chest pain and shortness of breath, exact etiology unclear possible due to bilateral pleural effusion and right basilar pneumonia: Patient had mild dull ache chest pain in the morning from right to left with shortness of breath. She states she could not sleep last night and was little short of breath. CTPA was done which shows moderate-sized bilateral pleural effusion, right more than left but negative for PE and right basilar consolidation. Patient started on IV antibiotic. Pneumonia workup ordered. Patient started on IV ceftriaxone and Zithromax. Serial troponin shows mild delta increase. Twelve-lead EKG shows A- fib with RVR 103 bpm, LAD, LAFB. QTc 466 ms. Discussed with consumer services advisor Dr. Hernandez. 2D echo ordered. Patient on Eliquis 2.5 mg for paroxysmal A-fib, regimen. Lasix also resumed. Patient BP is 117/79 therefore started on 20 mg IV twice daily. Previous EKG showed similar A-fib about 2 years ago 06/21: Patient denies chest pain or shortness of breath today. She gets easily tired. On Lasix and Eliquis. Discussed with the consumer services advisor. Location And Measurement Technician consult requested. 2D echo pending 3 chronic diastolic CHF with pulmonary hypertension/paroxysmal A-fib/essential HTN ? Continue with home blood pressure medications, will hold her Lasix secondary to her LIA, can likely resume Lasix in 24 to 48 hours ? Continue with Eliquis as she is not a surgical candidate at this time ? Echo in 2021 with an EF of 60% and RVSP of 32 mmHg 06/17: Blood pressure and heart rate normal. 06/21: Discussed with consumer services advisor. 3. Chronic iron deficiency anemia ? Continue with her iron supplementation ?Hemoglobin is down to 7.9, continue to hold Eliquis and will obtain a Hemoccult ? 06/17: Patient had IV iron infusion. Will order 1 more. H&H 8.0/24.8%. 06/19: Hemoglobin still 7.5. Stool for occult blood negative. Patient has follow-up with children's attendant Dr. Devonte Mares in July. I think she does not have iron versus anemia as MCV is normal but probably other causes including inflammatory anemia or anemia of chronic disease or ineffective erythropoiesis/MDS 06/20: Hemoglobin 8.2. 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 06/21: Discussed with Dr. Devonte Mares. 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 She had an echo in [facility] and she had mitral and tricuspid valve repair. She also has Hamzah repair. LV function normal, EF 55%. RV normal. Cannot comment on diastolic function due to A-fib. 4. GERD continue with PPI 5. Chronic constipation and intermittent urinary incontinence: Dulcolax 10 mg oral and if unsuccessful then Dulcolax suppository. On MiraLAX 17 g p.o. twice daily and senna S2 tablet twice daily. DVT: SCDs Chest CTA 06/20/24 07:08 IMPRESSION: No demonstrated pulmonary embolism or arterial dissection. 1. Moderate sized bilateral pleural effusions are present with moderate bibasilar atelectasis. 2. Right lower lobe mild pneumonia = Mild patchy consolidation is also present in the hilar and superior segment of the right lower lobe. 3. Diffuse interstitial thickening and edema and mild cystic emphysematous changes 4. Hyperinflated lungs 5. No nodules or masses or spiculated lesions are seen Charges/Coding Visit Charges Inpatient E&M: 75971 Subs Hosp L2
[2024-06-21 13:53] LABS: Vitamin B12 > 2000 pg/mL (211-911)
--- NOTE | 2024-06-21 15:21 | CASEMGMT ---
Social Work Phone call to [employer]inder Cedeno to check on precert. Determination has not yet been made by insurance. SW met with pt in room and updated on insurance precert. SW inquired if pt can return home alone if insurance denies stay. Pt stating that she cannot return home and that insurance should approve stay or pay for private duty aids in the home. SW attempted to educate patient that insurance holds the right to deny SNF and does not pay for private duty aids. Pt stating she will not talk about this topic any longer and will address the concern if it happens. SW will await determination from insurance. PASRR completed in [facility] in the event precert is obtained. Plan: Mohinder Cedeno, pending precert SAGAR Richey
--- NOTE | 2024-06-21 16:11 | PCM.CONS.C ---
Assessment & Plan Assessment/Plan (1) Atrial fibrillation: QUALIFIERS: Atrial fibrillation type: longstanding persistent Qualified Code(s): I48.11 - Longstanding persistent atrial fibrillation PLAN: Patient has a history of persistent atrial fibrillation. She has enlarged atria both right and left. She also has some mitral regurgitation and mitral stenosis which are both mild. She is status post mitral and tricuspid valve interventions. She has a mitral valve ring. The patient's heart rate appears to be appropriately controlled. She is on long-term oral anticoagulation with Eliquis 2.5 mg twice daily given her age and weight less than 60 kg. The patient follows with Dr. Peterson at the [facility]. Dr. Cheng is primarily structural heart person. (2) AMBRIZ (dyspnea on exertion): PLAN: Patient's dyspnea on exertion is multifactorial. She is severely anemic at 7.8 today she has a history of pleural effusions on the left she is cachectic and she has atrial fibrillation as well as valvular heart disease with a normal LV function but a history of diastolic dysfunction. The patient has been off of her diuretic therapy due to renal insufficiency which is now recovered and the diuretics were restarted today. The patient is hemoglobin needs to be monitored closely. All of her iron studies were low on admission. The patient's total protein was 7 and albumin was 4.1 on admission. There is a question of patient also may have a pneumonia and she is being treated. The patient has a history of having thoracenteses in the past. Addressing her anemia and her pulmonary status may benefit her from a comfort standpoint. (3) Nonrheumatic mitral valve regurgitation: PLAN: The patient's valvular heart disease appears to be stable since a year ago June 2023's echo. LV function is also stable in the 60% range. (4) Secondary pulmonary arterial hypertension: PLAN: The patient secondary pulmonary hypertension is actually improved on the test today showing that her PA pressures were 34 mmHg historically they have been 40?50. However, the October 2023 [facility] echo showed PA pressures in the 38 mmHg range. (5) USP current use of anticoagulant: PLAN: The patient should be maintained on Eliquis as tolerated for stroke prevention given her persistent atrial fibrillation. If she continues to be anemic and there is any evidence of slow blood loss consideration should be given of stopping the Eliquis although her [id number] score is significant. PLAN: Plan 1. Recommend continue with supportive care. 2. Continue to treat the pulmonary status. 3. Addressed iron deficiency anemia if at all possible. 4. Continue with Eliquis 2.5 mg twice daily as hemoglobin will tolerate. 5. No further cardiac evaluation is indicated at this point in time. 6. The patient should follow-up with her primary gynaecological oncologist at the [facility] following discharge from the hospital. HPI Consult Data Date of Consult: 06/21/24 HPI Narrative Reason for Consultation: Family request HPI Narrative: KAMLESH COLE, is a 88 F who presents with a pelvic fracture and possible pneumonia. Patient carries a history of significant valvular heart disease. She is status post remote mitral valve repair with a ring and tricuspid valve repair at the [facility] several years ago. The patient also has a history of atrial fibrillation she is status post maze procedure at the time of her valvular surgery and has had cardioversions at the [facility] in the past. She has been in atrial fibrillation for quite some time by her report at this time. The patient has been on Eliquis long-term she is 88 years of age she is less than 60 kg and is appropriately on 2.5 mg twice daily. Patient had a history of acute kidney injury pelvic fracture anemia with hemoglobin down in the 7 range. She has chronic atrial fibrillation history of diastolic heart failure she had been on oral diuretic therapy in her home environment she has secondary pulmonary artery hypertension pulmonary artery pressures measured in the 35-40 mmHg range by echo. Patient has had echocardiograms done at the [facility] June 2023, October 2023 and then again on this admission 06/20/2024 at [facility]. All 3 of these echos show normal LV function EF in the 55 to 60% range. Both atria are dilated. There is a mitral ring in place she has mild mitral stenosis with a mean gradient being either 8 or 9 on all 3 echocardiograms. She also has a history of tricuspid valve mild regurgitation there is mild mitral regurgitation as well. There is really no significant difference in any of the echocardiograms. The patient was noted to have a large left pleural effusion. The patient denies any significant lower extremity edema. She does report shortness of breath with minimal activity just getting to the restroom and back. She is also noticing significant weakness and fatigue. On admission with the patient's pelvic fracture and her anemia her hemoglobin was dropping and her Eliquis was held until today. She was actually admitted Thanks day. The patient also had her diuretics held due to acute kidney injury these were reinstituted today. [facility] Medical History (Updated 06/21/24 @ 16:[address] 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 USP (current) use of systemic steroids Wound of right lower extremity Chronic pain Osteoporosis Asthma Fibromyalgia Arthritis Secondary pulmonary arterial hypertension Asthma PVCs (premature ventricular contractions) Ascending aorta dilatation Nonrheumatic tricuspid valve regurgitation Nonrheumatic mitral valve regurgitation First degree AV block Paroxysmal atrial fibrillation Home Medications ?Medication ?Instructions ?Recorded ?Last Taken ?Type albuterol sulfate 90 mcg/actuation 2 puff IH 4X/DAY PRN PRN Sob &/Or 05/14/13 05/27/13 05:55 History aerosol inhaler Wheezing montelukast 10 mg tablet 10 mg PO DAILY allergies 05/14/13 Unknown History apixaban 2.5 mg tablet 2.5 mg PO BID blood thinner 08/29/20 Unknown History beclomethasone dipropionate 80 2 puff inhalation BID breathing 08/29/20 Unknown History mcg/actuation HFA breath activated aerosol biotin 10,000 mcg capsule 5,000 mcg PO DAILY supplement 08/29/20 Unknown History furosemide 20 mg tablet 20 mg PO DAILY diuretic 08/29/20 Unknown History prednisone 1 mg tablet 5 mg PO DAILY inflammation 08/29/20 Unknown History metoprolol succinate 25 mg 25 mg PO BID AFIB #0 tabs 11/25/21 Unknown Rx tablet,extended release 24 hr calcium 600 mg capsule 600 mg PO DAILY 12/09/21 Unknown History tizanidine 4 mg tablet 4 mg PO PRN PRN Anxiety 12/09/21 Unknown History vitamin A 2,400 mcg capsule 2,400 mcg PO DAILY ASK PCP 12/09/21 Unknown History gabapentin 100 mg capsule 100 mg PO BID 12/26/21 Unknown History oxycodone 5 mg tablet 5 mg PO BID 12/26/21 Unknown History pantoprazole 40 mg tablet,delayed 40 mg PO BID ASK PCP #60 tabs 12/28/21 Unknown Rx release (Protonix) sucralfate 1 gram tablet (Carafate) 1 g PO .QID #28 tabs 12/28/21 Unknown Rx cephalexin 500 mg capsule 500 mg PO Q6 #40 CAPSULES 11/13/22 Unknown Rx oxycodone-acetaminophen 5 mg-325 1 tab PO Q8H PRN pain 2 days #7 11/13/22 Unknown Rx mg tablet (Percocet) tabs sulfamethoxazole 800 1 tab PO BID #20 tabs 11/13/22 Unknown Rx mg-trimethoprim 160 mg tablet (Bactrim DS) ondansetron 4 mg disintegrating 8 mg (2 x 4 mg) PO Q8H PRN PRN 11/14/22 Unknown Rx tablet Nausea #14 tabs ascorbic acid (vitamin C) 1,000 mg 1 g PO DAILY ASK PCP 06/13/24 Unknown History capsule clobetasol 0.05 % shampoo 1 applic topical DAILY PRN ASK PCP 06/13/24 Unknown History cyanocobalamin (vitamin B-12) 1,000 mcg PO DAILY ASK PCP 06/13/24 Unknown History 1,000 mcg tablet ferrous sulfate 325 mg (65 mg 325 mg PO .COMPLEX ASK PCP 06/13/24 Unknown History iron) tablet fluticasone propionate 115 2 inh inhalation BID ASK PCP 06/13/24 Unknown History mcg-salmeterol 21 mcg/actuation HFA inhaler (Advair HFA) ketoconazole 2 % shampoo 1 applic topical .COMPLEX ASK PCP 06/13/24 Unknown History potassium chloride 10 mEq 10 meq PO BID ASK PCP 06/13/24 Unknown History capsule,extended release torsemide 20 mg tablet 20 mg PO BID ASK PCP 06/13/24 Unknown History trazodone 50 mg tablet 50 mg PO QHS ASK PCP 06/13/24 Unknown History Allergy/AdvReac Type Severity Reaction Status Date / Time No Known Allergies Allergy Verified 11/17/22 08:33 Family History Unknown No problems noted. Mother , at age 102 No cardiac disease Father Dementia Surgical History History of cholecystectomy H/O mitral valve repair Hx of cholecystectomy History of hysterectomy History of tonsillectomy History of bilateral hip replacements Social History household members: none Smoking Status: Never smoker substance use type: does not use ROS ROS Narrative Primary complaint is fatigue and weakness with dyspnea on minimal exertion Constitutional Constitutional: Reports as per HPI Eyes Eyes: Reports systems reviewed and no addt'l complaints, except as documented ENT HEENT: Reports systems reviewed and no addt'l complaints, except as documented Cardiovascular Cardiovascular: Reports as per HPI Respiratory/Chest Respiratory/Chest: Reports as per HPI Gastrointestinal Gastrointestinal: Reports systems reviewed and no addt'l complaints, except as documented Genitourinary Genitourinary: Reports as per HPI Musculoskeletal Musculoskeletal: Reports as per HPI Integumentary Integumentary: Reports systems reviewed and no addt'l complaints, except as documented Neurologic Neurologic: Reports systems reviewed and no addt'l complaints, except as documented Psychiatric Psychiatric: Reports systems reviewed and no addt'l complaints, except as documented Endocrine Endocrinology: Reports systems reviewed and no addt'l complaints, except as documented Hematologic/Lymphatic Hematologic/Lymphatic: Reports as per HPI Allergic/Immunologic Allergic/Immunologic: Reports systems reviewed and no addt'l complaints, except as documented Physical Exam Narrative Patient is cachectic with mild conversational dyspnea. O2 saturation is good on 2 L nasal cannula at rest in the recumbent position. Const alert and oriented x3 HEENT normocephalic Eyes EOMs intact bilaterally Neck Neck Narrative: JVD is noted mcc to the angle of the jaw at 30 degrees. Carotids: Negative for bruit Chest Chest Narrative: Thin cachectic appearing chest wall. Resp Auscultation: diminished lung sounds bilateral lower Cardio Rate: regular rate Rhythm: abnormal rhythm irregularly irregular Heart Sounds: S1 normal, S2 normal and murmur systolic II/ blowing base, left sternal border and right sternal border; Negative for click or gallop Extremity General Extremity: edema bilateral lower extremity Details: trace Skin Skin Narrative: Mild hyperpigmentation of the lower extremities. Neuro Neuro Narrative: Alert and oriented x 3 Psych mental status grossly normal Risk Stratification Risk Stratification Applicable: No Charges/Coding Visit Charges Inpatient E&M: 98630 Init Hosp L3 Objective Data Vital Signs: Vital Signs Temp Pulse Resp BP Pulse Ox O2 Del Method O2 Flow Rate 98.1 F 91 18 112/59 L 94 Nasal Cannula 2 06/21/24 09:00 06/21/24 09:00 06/21/24 09:00 06/21/24 09:00 06/21/24 09:00 06/21/24 09:00 06/21/24 09:00 Oxygen Flow Rate (L/min) 2 Oxygen Delivery Method Nasal Cannula Weight: 121 lb 0.011 oz Body Mass Index (BMI) 19.5 Intake & Output: Intake and Output for Last 24 Hours 06/19/24 06/20/24 06/21/24 23:59 23:59 23:59 Intake Total 980 / 1220 965.83 / 965.83 550 / 550 Output Total 1500 / 1500 Balance 980 / 1220 965.83 / 765.83 -950 / -950 Lab / Micro Data Attestation: I reviewed the patient's lab results. 06/21/24 05:21 06/21/24 05:21 Labs: Laboratory Results - last 24 hr 06/21/24 05:21: WBC 7.8, RBC 2.77 L, Hgb 7.8 L, Hct 26.1 L, MCV 94.2, MCH 28.2, MCHC 29.9 L, RDW Std Deviation 49.1 H, RDW Coeff of Carey 14.5, Plt Count 267, MPV 9.9, Immature Gran % (Auto) 0.300, Neut % (Auto) 79.9 H, Lymph % (Auto) 8.5 L, Swisher % (Auto) 8.8, Eos % (Auto) 2.0, Baso % (Auto) 0.5, Absolute Neuts (auto) 6.3, Absolute Lymphs (auto) 0.67 L, Nucleated RBC % 0, Sodium 139, Potassium 4.9, Chloride 110 H, Carbon Dioxide 24.0, Anion Gap 5, BUN 21 H, Creatinine 1.00, Estim Creat Clear Calc 34.34, Est GFR (MDRD) Af Amer 68, Est GFR (MDRD) Non-Af 56 L, BUN/Creatinine Ratio 21.1 H, Glucose 89, Calcium 8.4 L, Vitamin B12 > 2000 H, Folate 15.20 Micro: Microbiology 06/20/24 19:45 Urine, Clean Catch Legionella Antigen - Final 06/20/24 19:45 Urine, Clean Catch Streptococcus pneumoniae Antigen (M - Final 06/20/24 13:20 Nasal Secretion MRSA (PCR) - Final 06/20/24 13:20 Mucosa - Nose SARS-CoV-2, Influenza & RSV (PCR) - Final Cardiology Labs/Tests 06/21/24 05:21: WBC 7.8, RBC 2.77 L, Hgb 7.8 L, Hct 26.1 L, MCV 94.2, MCH 28.2, MCHC 29.9 L, Plt Count 267, MPV 9.9, Immature Gran % (Auto) 0.300, Neut % (Auto) 79.9 H, Lymph % (Auto) 8.5 L, Swisher % (Auto) 8.8, Eos % (Auto) 2.0, Baso % (Auto) 0.5, Absolute Neuts (auto) 6.3, Nucleated RBC % 0, Sodium 139, Potassium 4.9, Chloride 110 H, Carbon Dioxide 24.0, Anion Gap 5, BUN 21 H, Creatinine 1.00, Est GFR (MDRD) Af Amer 68, Est GFR (MDRD) Non-Af 56 L, BUN/Creatinine Ratio 21.1 H, Glucose 89, Calcium 8.4 L Rhythm: EKG: ECHO: Stress Test: Cardiac Cath: PCI: CT Surgery: Holter monitor: EPS: PPM: CXR: Chest CT Scan: Radiography Diagnostic Testing: Radiology Impression Echocardiogram 06/20/24 14:10 Interpretation Summary The estimated ejection fraction is 60 %. The left atrium is mildly enlarged. The right atrium is mildly enlarged. Mean transmitral valve gradient 8 mmHg. Mild (1+) tricuspid valve insufficiency. Pulmonary artery systolic pressure is 34 mmHg. Large pleural effusion noted. Ordering Physician: Jack Booth Referring Physician: Jose Osullivan Performed By: Jose Flores and Student
[2024-06-21] MEDS: Polyethylene Glycol 3350 17 GM PACKET PO (21:41)
[2024-06-21] MEDS: guaiFENesin 1,200 MG Tablet 1200 MG PO (21:41)
[2024-06-21] MEDS: traZODone 50 MG Tablet PO (21:42)
[2024-06-22] VITALS (8 sets, daily range): BP systolic 101–124; BP diastolic 54–83; PULSE 77–85; RESP 16–18; TEMP 36.6–37.2; O2SAT 94–98
[2024-06-22 05:56] LABS: Absolute Lymphocyte Count 0.91 X10^3/uL (0.83-4.51); Absolute Neutrophil Count 4.3 X10^3/uL (2.0-7.7); Basophil# 0.04 X10^3/uL; Basophil% 0.6 % (0-1); Eosinophil# 0.32 X10^3/uL; Eosinophils% 5.1 % (0-5); Hematocrit 24.3 % (37-47); Hemoglobin 7.5 g/dL (12.0-15.0); Lymphocyte # 0.91 X10^3/ul (0.83-4.51); Lymphocyte % 14.6 % (19-41); Mean Corp Hgb Conc 30.9 g/dL (32-36); Mean Corpuscular Hgb 29.1 pg (27.0-32.0); Mean Corpuscular Volume 94.2 fL (81-99); Mean Platelet Vol. 9.6 fl (6.2-12.0); Monocyte# 0.64 X10^3/uL; Monocyte% 10.3 % (0-10); NRBC Flagged by Analyzer 0 % (0-5); Neutrophil # 4.29 X10^3/uL (2.7-7.7); Neutrophil % 69.1 % (47-70); Platelet Count 290 K/mm3 (150-450); RBC Distribution Width CV 14.6 % (11.6-14.6); RBC Distribution Width SD 49.5 fl (35.1-43.9); Red Blood Count 2.58 M/mm3 (4.2-5.4); White Blood Count 6.2 K/mm3 (4.4-11.0)
[2024-06-22 06:19] LABS: Anion Gap 6 (5-15); BUN 23 mg/dL (7-18); BUN/Creat Ratio 22.3 RATIO (10-20); Calcium,Total 8.3 mg/dL (8.5-10.1); Chloride 111 mmol/L (98-107); Creatinine, Serum 1.03 mg/dL (0.55-1.02); EST Glomerular Filtration Rate 54 mL/min (>60); Est Glom Filt Rate - Afr Amer 65 mL/min (>60); Estimated Creatinine Clearance 33.34 ml/min; Glucose 94 mg/dL (74-106); Potassium 4.2 mmol/L (3.5-5.1); Sodium Level 141 mmol/L (136-145)
[2024-06-22] MEDS: Acetaminophen 500 MG Tablet 1000 MG PO ×3 (06:20→22:10)
[2024-06-22] MEDS: Furosemide 20 MG/2 ML VIAL IV ×2 (08:53→17:32)
[2024-06-22] MEDS: Cyanocobalamin 500 MCG Tablet 1000 MCG PO (08:54)
[2024-06-22] MEDS: Metoprolol(XL)Succ 25 MG Tablet PO ×2 (08:54→22:06)
[2024-06-22] MEDS: guaiFENesin 1,200 MG Tablet 1200 MG PO ×2 (08:54→22:06)
[2024-06-22] MEDS: Pantoprazole Sodium 40 MG Tablet PO ×2 (08:55→22:07)
[2024-06-22] MEDS: Montelukast 10 MG Tablet PO (08:56)
[2024-06-22] MEDS: Ceftriaxone 2 GM in 0.9% Normal Saline (50mL MB+) 50 ML IV (09:08)
[2024-06-22] MEDS: Isosorbide Mononitrate 20 MG Tablet 10 MG PO (09:19)
[2024-06-22] MEDS: Azithromycin 250 MG Tablet 500 MG PO (09:20)
[2024-06-22] MEDS: APIXABAN 2.5 MG TABLET (WCH) PO ×2 (09:20→22:10)
[2024-06-22] MEDS: oxyCODONE 5 MG Tablet PO (10:58)
--- NOTE | 2024-06-22 11:42 | PCM.PN.HOSP ---
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 (06/13/24) Objective Data Objective Data Vital Signs: Vital Signs Temp Pulse Resp BP Pulse Ox O2 Del Method O2 Flow Rate 97.8 F 87 16 106/50 L 94 Nasal Cannula 2 06/23/24 08:55 06/23/24 09:05 06/23/24 08:55 06/23/24 08:55 06/23/24 08:55 06/23/24 10:30 06/23/24 10:30 FiO2 98 06/23/24 02:13 Oxygen Flow Rate (L/min) 2 Oxygen Delivery Method Nasal Cannula Weight: 121 lb 0.011 oz Body Mass Index (BMI) 19.5 Intake & Output: Intake and Output for Last 24 Hours 06/21/24 06/22/24 06/23/24 23:59 23:59 23:59 Intake Total 900 / 900 750 / 750 100 / 100 Output Total 1800 / 1800 Balance -900 / -900 750 / 750 100 / 100 Lab / Micro Data 06/22/24 05:30 06/22/24 05:30 Micro: Microbiology 06/20/24 19:45 Urine, Clean Catch Legionella Antigen - Final 06/20/24 19:45 Urine, Clean Catch Streptococcus pneumoniae Antigen (M - Final 06/20/24 13:20 Nasal Secretion MRSA (PCR) - Final 06/20/24 13:20 Mucosa - Nose SARS-CoV-2, Influenza & RSV (PCR) - Final 06/18/24 19:00 Stool Stool Occult Blood ([facility]) - Final Physical Exam Narrative Seen and examined She feels improvement in her shortness of breath. She is sitting in the chair. Had good bowel movement. Patient does not have chest pain today. Physical exam General: Alert, Oriented x3, Cooperative HEENT: Atraumatic, PERRLA, EOMI, Normocephalic Oral: No Gingival or Mucosal Lesions/ Ulcerations Neck: Supple, No JVD, Negative Carotid Bruits Chest wall/Lungs: Air entry diminished in bilateral lung bases. No tachypnea no crepitation/rhonchi Cardiovascular: A-fib, Normal S1, Normal S2, soft murmur at cardiac apex Abdomen: Bowel Sounds Present, Soft, Non Tender, Non-Distended : No dysuria. No renal angle tenderness. No suprapubic tenderness. Extremities: No edema, Capillary Refill Less than 3 Seconds Skin: No rashes, No breakdown Musculoskeletal: Mild deep tenderness on right pubic rami. No Tenderness to Palpation of Joints or Extremities Neurological: Cranial nerves II-XII grossly intact, DTR 2+/4. No acute focal neurological deficit. Psych/Mental Status: Flat affect anxiety Assessment & Plan Assessment/Plan (1) Pelvic fracture: (2) Difficulty in walking: (3) LIA (acute kidney injury): PLAN: Plan 88-year-old female was admitted with right hip/pelvic pain after a fall at home. She has history of bilateral hip replacement and uses 4 point walker for ambulation. 1. Right sided pubic rami fracture secondary to mechanical fall/LIA ? PT/OT ? Continue with pain control ? Will evaluate for the possibility of going home versus SNF 06/22: Pre-CERT pending. Discussed with the outsole caser and social service assistant. LIA: Her admitting creatinine was high 2.17 therefore Lasix was held. ?LIA is resolved It dropped to 0.92 and after starting Lasix started going up today 1.0 2. Atypical chest pain and shortness of breath, exact etiology unclear possible due to bilateral pleural effusion and right basilar pneumonia: Patient had mild dull ache chest pain in the morning from right to left with shortness of breath. She states she could not sleep last night and was little short of breath. CTPA was done which shows moderate-sized bilateral pleural effusion, right more than left but negative for PE and right basilar consolidation. Patient started on IV antibiotic. Pneumonia workup ordered. Patient started on IV ceftriaxone and Zithromax. Serial troponin shows mild delta increase. Twelve-lead EKG shows A-fib with RVR 103 bpm, LAD, LAFB. QTc 466 ms. Discussed with employment representative Dr. Hernandez. 2D echo ordered. Patient on Eliquis 2.5 mg for paroxysmal A-fib, regimen. Lasix also resumed. Patient BP is 117/79 therefore started on 20 mg IV twice daily. Previous EKG showed similar A-fib about 2 years ago 06/21: Patient denies chest pain or shortness of breath today. She gets easily tired. On Lasix and Eliquis. Discussed with the employment representative. Ethylene Plant Operator consult requested. 2D echo pending 06/22: Continue Lasix IV 20 mg twice daily 3 chronic diastolic CHF with pulmonary hypertension/paroxysmal A-fib/essential HTN ? Continue with home blood pressure medications, will hold her Lasix secondary to her LIA, can likely resume Lasix in 24 to 48 hours ? Continue with Eliquis as she is not a surgical candidate at this time ? Echo in 2021 with an EF of 60% and RVSP of 32 mmHg 06/17: Blood pressure and heart rate normal. 06/21: Discussed with employment representative. 06/22: Discussed with the patient's employment representative Dr. Gongora, [facility] employment representative over the phone. Prior to that I called her primary [facility] employment representative to the office and left the message at front end engineer to call me back. She agrees with the current plan of management with Lasix and Eliquis. She also agreed that the Lasix and Eliquis were held up because of LIA, pubic rami fracture and severe anemia and risk of bleeding 3. Chronic iron deficiency anemia ? Continue with her iron supplementation ?Hemoglobin is down to 7.9, continue to hold Eliquis and will obtain a Hemoccult ? 06/17: Patient had IV iron infusion. Will order 1 more. H&H 8.0/24.8%. 06/19: Hemoglobin still 7.5. Stool for occult blood negative. Patient has follow-up with freelance designer Dr. Devonte Mares in July. I think she does not have iron versus anemia as MCV is normal but probably other causes including inflammatory anemia or anemia of chronic disease or ineffective erythropoiesis/MDS 06/20: Hemoglobin 8.2. 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 06/21: Discussed with Dr. Devonte Mares. 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 She had an echo in [facility] and she had mitral and tricuspid valve repair. She also has Hamzah repair. LV function normal, EF 55%. RV normal. Cannot comment on diastolic function due to A-fib. 4. GERD continue with PPI 5. Chronic constipation and intermittent urinary incontinence: Dulcolax 10 mg oral and if unsuccessful then Dulcolax suppository. On MiraLAX 17 g p.o. twice daily and senna S2 tablet twice daily. DVT: SCDs Chest CTA 06/20/24 07:08 IMPRESSION: No demonstrated pulmonary embolism or arterial dissection. 1. Moderate sized bilateral pleural effusions are present with moderate bibasilar atelectasis. 2. Right lower lobe mild pneumonia = Mild patchy consolidation is also present in the hilar and superior segment of the right lower lobe. 3. Diffuse interstitial thickening and edema and mild cystic emphysematous changes 4. Hyperinflated lungs 5. No nodules or masses or spiculated lesions are seen Charges/Coding Visit Charges Inpatient E&M: 00554 Subs Hosp L2
[2024-06-22] MEDS: traZODone 50 MG Tablet PO (22:07)
[2024-06-23] VITALS (8 sets, daily range): BP systolic 96–125; BP diastolic 50–79; PULSE 75–87; RESP 16–18; TEMP 36.6–36.9; O2SAT 94–99
[2024-06-23] MEDS: oxyCODONE 5 MG Tablet PO ×2 (05:45→21:15)
[2024-06-23] MEDS: Acetaminophen 500 MG Tablet 1000 MG PO ×3 (05:45→21:15)
[2024-06-23] MEDS: Azithromycin 250 MG Tablet 500 MG PO (09:01)
[2024-06-23] MEDS: Isosorbide Mononitrate 20 MG Tablet 10 MG PO (09:02)
[2024-06-23] MEDS: Cyanocobalamin 500 MCG Tablet 1000 MCG PO (09:03)
[2024-06-23] MEDS: Furosemide 20 MG/2 ML VIAL IV ×2 (09:03→17:27)
[2024-06-23] MEDS: guaiFENesin 1,200 MG Tablet 1200 MG PO ×2 (09:04→21:15)
[2024-06-23] MEDS: Pantoprazole Sodium 40 MG Tablet PO ×2 (09:04→21:15)
[2024-06-23] MEDS: Montelukast 10 MG Tablet PO (09:04)
[2024-06-23] MEDS: Metoprolol(XL)Succ 25 MG Tablet PO ×2 (09:05→21:14)
[2024-06-23] MEDS: Ceftriaxone 2 GM in 0.9% Normal Saline (50mL MB+) 50 ML IV (09:17)
[2024-06-23] MEDS: APIXABAN 2.5 MG TABLET (WCH) PO ×2 (09:18→21:16)
--- NOTE | 2024-06-23 12:17 | PCM.PN.HOSP ---
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 (06/13/24) Objective Data Objective Data Vital Signs: Vital Signs Temp Pulse Resp BP Pulse Ox O2 Del Method O2 Flow Rate 97.8 F 87 16 106/50 L 94 Nasal Cannula 2 06/23/24 08:55 06/23/24 09:05 06/23/24 08:55 06/23/24 08:55 06/23/24 08:55 06/23/24 10:30 06/23/24 10:30 FiO2 98 06/23/24 02:13 Oxygen Flow Rate (L/min) 2 Oxygen Delivery Method Nasal Cannula Weight: 121 lb 0.011 oz Body Mass Index (BMI) 19.5 Intake & Output: Intake and Output for Last 24 Hours 06/21/24 06/22/24 06/23/24 23:59 23:59 23:59 Intake Total 900 / 900 750 / 750 100 / 100 Output Total 1800 / 1800 Balance -900 / -900 750 / 750 100 / 100 Lab / Micro Data 06/22/24 05:30 06/22/24 05:30 Micro: Microbiology 06/20/24 19:45 Urine, Clean Catch Legionella Antigen - Final 06/20/24 19:45 Urine, Clean Catch Streptococcus pneumoniae Antigen (M - Final 06/20/24 13:20 Nasal Secretion MRSA (PCR) - Final 06/20/24 13:20 Mucosa - Nose SARS-CoV-2, Influenza & RSV (PCR) - Final 06/18/24 19:00 Stool Stool Occult Blood ([facility]) - Final Physical Exam Narrative Seen and examined I talked to the patient's other son and [id number], in person from [facility]. They were visiting her. Overall patient's shortness of breath is better. She is sitting in the chair. Patient does not have chest pain today. Sometimes he gets sometimes short of breath on walking but mostly she is fine. Physical exam General: Alert, Oriented x3, Cooperative HEENT: Atraumatic, PERRLA, EOMI, Normocephalic Oral: No Gingival or Mucosal Lesions/ Ulcerations Neck: Supple, No JVD, Negative Carotid Bruits Chest wall/Lungs: Air entry diminished in bilateral lung bases. No tachypnea no crepitation/rhonchi Cardiovascular: A-fib, Normal S1, Normal S2, soft murmur at cardiac apex Abdomen: Bowel Sounds Present, Soft, Non Tender, Non-Distended : No dysuria. No renal angle tenderness. No suprapubic tenderness. Extremities: No edema, Capillary Refill Less than 3 Seconds Skin: No rashes, No breakdown Musculoskeletal: Mild deep tenderness on right pubic rami. No Tenderness to Palpation of Joints or Extremities Neurological: Cranial nerves II-XII grossly intact, DTR 2+/4. No acute focal neurological deficit. Psych/Mental Status: Flat affect anxiety Assessment & Plan Assessment/Plan (1) Pelvic fracture: (2) Difficulty in walking: (3) LIA (acute kidney injury): PLAN: Plan 88-year-old female was admitted with right hip/pelvic pain after a fall at home. She has history of bilateral hip replacement and uses 4 point walker for ambulation. 1. Right sided pubic rami fracture secondary to mechanical fall/LIA ? PT/OT ? Continue with pain control ? Will evaluate for the possibility of going home versus SNF 06/23: Pre-CERT pending. Discussed with the son and [id number]. Pain is well-controlled LIA: Her admitting creatinine was high 2.17 therefore Lasix was held. ?LIA is resolved It dropped to 0.92 and after starting Lasix started going up today 1.0 2. Atypical chest pain and shortness of breath, exact etiology unclear possible due to bilateral pleural effusion and right basilar pneumonia: Patient had mild dull ache chest pain in the morning from right to left with shortness of breath. She states she could not sleep last night and was little short of breath. CTPA was done which shows moderate-sized bilateral pleural effusion, right more than left but negative for PE and right basilar consolidation. Patient started on IV antibiotic. Pneumonia workup ordered. Patient started on IV ceftriaxone and Zithromax. Serial troponin shows mild delta increase. Twelve-lead EKG shows A-fib with RVR 103 bpm, LAD, LAFB. QTc 466 ms. D[address] with pickle pumper Dr. Hernandez. 2D echo ordered. Patient on Eliquis 2.5 mg for paroxysmal A-fib, regimen. Lasix also resumed. Patient BP is 117/79 therefore started on 20 mg IV twice daily. Previous EKG showed similar A-fib about 2 years ago 06/21: Patient denies chest pain or shortness of breath today. She gets easily tired. On Lasix and Eliquis. Discussed with the pickle pumper. Dinkey Engineer consult requested. 2D echo pending 06/23: Lasix IV 20 mg twice daily last dose in the evening today. Changed to Lasix 40 mg p.o. twice daily equivalent to home dose of torsemide 20 mg twice daily 3 chronic diastolic CHF with pulmonary hypertension/paroxysmal A-fib/essential HTN ? Continue with home blood pressure medications, will hold her Lasix secondary to her LIA, can likely resume Lasix in 24 to 48 hours ? Continue with Eliquis as she is not a surgical candidate at this time ? Echo in 2021 with an EF of 60% and RVSP of 32 mmHg 06/17: Blood pressure and heart rate normal. 06/21: Discussed with pickle pumper. 3. Chronic iron deficiency anemia ? Continue with her iron supplementation ?Hemoglobin is down to 7.9, continue to hold Eliquis and will obtain a Hemoccult ? 06/17: Patient had IV iron infusion. Will order 1 more. H&H 8.0/24.8%. 06/19: Hemoglobin still 7.5. Stool for occult blood negative. Patient has follow-up with research center partner Dr. Devonte Mares in July. I think she does not have iron versus anemia as MCV is normal but probably other causes including inflammatory anemia or anemia of chronic disease or ineffective erythropoiesis/MDS 06/20: Hemoglobin 8.2. 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 06/21: Discussed with Dr. Devonte Mares. 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 She had an echo in [facility] and she had mitral and tricuspid valve repair. She also has Hamzah repair. LV function normal, EF 55%. RV normal. Cannot comment on diastolic function due to A-fib. 4. GERD continue with PPI 5. Chronic constipation and intermittent urinary incontinence: Dulcolax 10 mg oral and if unsuccessful then Dulcolax suppository. On MiraLAX 17 g p.o. twice daily and senna S2 tablet twice daily. DVT: SCDs Chest CTA 06/20/24 07:08 IMPRESSION: No demonstrated pulmonary embolism or arterial dissection. 1. Moderate sized bilateral pleural effusions are present with moderate bibasilar atelectasis. 2. Right lower lobe mild pneumonia = Mild patchy consolidation is also present in the hilar and superior segment of the right lower lobe. 3. Diffuse interstitial thickening and edema and mild cystic emphysematous changes 4. Hyperinflated lungs 5. No nodules or masses or spiculated lesions are seen Charges/Coding Visit Charges Inpatient E&M: 40267 Subs Hosp L2
[2024-06-23 13:07] LABS: Absolute Lymphocyte Count 0.93 X10^3/uL (0.83-4.51); Basophil# 0.04 X10^3/uL; Basophil% 0.6 % (0-1); Eosinophil# 0.27 X10^3/uL; Hematocrit 25.9 % (37-47); Lymphocyte # 0.93 X10^3/ul (0.83-4.51); Lymphocyte % 13.8 % (19-41); Mean Corp Hgb Conc 30.9 g/dL (32-36); Mean Corpuscular Hgb 29.1 pg (27.0-32.0); Mean Corpuscular Volume 94.2 fL (81-99); Mean Platelet Vol. 9.3 fl (6.2-12.0); Monocyte# 0.48 X10^3/uL; Monocyte% 7.1 % (0-10); NRBC Flagged by Analyzer 0 % (0-5); Neutrophil # 4.96 X10^3/uL (2.7-7.7); Neutrophil % 73.9 % (47-70); Platelet Count 415 K/mm3 (150-450); RBC Distribution Width CV 14.3 % (11.6-14.6); RBC Distribution Width SD 48.9 fl (35.1-43.9); Red Blood Count 2.75 M/mm3 (4.2-5.4); White Blood Count 6.7 K/mm3 (4.4-11.0)
[2024-06-23 13:23] LABS: Anion Gap 9 (5-15); BUN 22 mg/dL (7-18); BUN/Creat Ratio 20.6 RATIO (10-20); Calcium,Total 8.6 mg/dL (8.5-10.1); Chloride 108 mmol/L (98-107); Creatinine, Serum 1.07 mg/dL (0.55-1.02); EST Glomerular Filtration Rate 52 mL/min (>60); Est Glom Filt Rate - Afr Amer 62 mL/min (>60); Estimated Creatinine Clearance 32.09 ml/min; Glucose 119 mg/dL (74-106); Potassium 4.1 mmol/L (3.5-5.1); Sodium Level 140 mmol/L (136-145)
[2024-06-23] MEDS: traZODone 50 MG Tablet PO (21:15)
[2024-06-24 03:05] VITALS: BP 122/64; PULSE 74; RESP 18; TEMP 36.4; O2SAT 98
[2024-06-24] MEDS: oxyCODONE 5 MG Tablet PO ×2 (06:13→15:13)
[2024-06-24] MEDS: Acetaminophen 500 MG Tablet 1000 MG PO ×2 (06:13→13:28)
[2024-06-24 06:56] LABS: Absolute Lymphocyte Count 1.12 X10^3/uL (0.83-4.51); Absolute Neutrophil Count 2.9 X10^3/uL (2.0-7.7); Basophil# 0.04 X10^3/uL; Basophil% 0.8 % (0-1); Eosinophil# 0.26 X10^3/uL; Eosinophils% 5.5 % (0-5); Hematocrit 26.5 % (37-47); Hemoglobin 8.3 g/dL (12.0-15.0); Lymphocyte # 1.12 X10^3/ul (0.83-4.51); Lymphocyte % 23.7 % (19-41); Mean Corp Hgb Conc 31.3 g/dL (32-36); Mean Corpuscular Hgb 29.3 pg (27.0-32.0); Mean Corpuscular Volume 93.6 fL (81-99); Mean Platelet Vol. 9.1 fl (6.2-12.0); Monocyte# 0.39 X10^3/uL; Monocyte% 8.3 % (0-10); NRBC Flagged by Analyzer 0 % (0-5); Neutrophil # 2.89 X10^3/uL (2.7-7.7); Neutrophil % 61.3 % (47-70); Platelet Count 396 K/mm3 (150-450); RBC Distribution Width CV 14.1 % (11.6-14.6); RBC Distribution Width SD 48.5 fl (35.1-43.9); Red Blood Count 2.83 M/mm3 (4.2-5.4); White Blood Count 4.7 K/mm3 (4.4-11.0)
[2024-06-24 07:23] LABS: Anion Gap 6 (5-15); BUN 21 mg/dL (7-18); BUN/Creat Ratio 23.5 RATIO (10-20); Calcium,Total 8.7 mg/dL (8.5-10.1); Chloride 110 mmol/L (98-107); Creatinine, Serum 0.89 mg/dL (0.55-1.02); EST Glomerular Filtration Rate 63 mL/min (>60); Est Glom Filt Rate - Afr Amer 77 mL/min (>60); Estimated Creatinine Clearance 38.59 ml/min; Glucose 94 mg/dL (74-106); Potassium 3.9 mmol/L (3.5-5.1); Sodium Level 140 mmol/L (136-145)
[2024-06-24 08:12] VITALS: BP 129/81; PULSE 75; RESP 18; TEMP 36.6; O2SAT 96
[2024-06-24] MEDS: Isosorbide Mononitrate 20 MG Tablet 10 MG PO ×2 (08:24→15:15)
[2024-06-24] MEDS: Ferrous Sulfate 325 MG Tablet PO (08:24)
[2024-06-24] MEDS: Ceftriaxone 2 GM in 0.9% Normal Saline (50mL MB+) 50 ML IV (10:19)
[2024-06-24] MEDS: 0.9% Saline Lock 10 ML Syringe IV (10:21)
[2024-06-24] MEDS: Azithromycin 250 MG Tablet 500 MG PO (10:26)
[2024-06-24] MEDS: Furosemide 40 MG Tablet PO (10:26)
[2024-06-24] MEDS: APIXABAN 2.5 MG TABLET (WCH) PO (10:26)
[2024-06-24 10:27] VITALS: PULSE 76
[2024-06-24] MEDS: Montelukast 10 MG Tablet PO (10:27)
[2024-06-24] MEDS: Pantoprazole Sodium 40 MG Tablet PO (10:27)
[2024-06-24] MEDS: Metoprolol(XL)Succ 25 MG Tablet PO (10:27)
[2024-06-24] MEDS: Cyanocobalamin 500 MCG Tablet 1000 MCG PO (10:27)
[2024-06-24] MEDS: guaiFENesin 1,200 MG Tablet 1200 MG PO (10:27)
--- NOTE | 2024-06-24 13:09 | CASEMGMT ---
Discharge Planning [facility] has obtained auth. Physician and SW updated. Tahira Ralph DC Planning Asst.
--- NOTE | 2024-06-24 13:13 | DS.PCM_ITS ---
Providers Date of Admission: 06/13/24 Date of Discharge: 06/24/24 Primary Care Physician: Dr. Cielo Ribeiro MD Consultations 06/21/24 09:37 Consult: Cardiology Routine Consulting Provider: Harley Hernandez Reason for Consult: CHEST PAIN/SOB, h/O HF, pleural effusion EMERGENT Consult: No MD Notified: Yes Date Notified: 06/20/24 Time Notified: 14:37 Method of Notification: Verbal Reason For Visit: FALL W PELVIC FRACTURE, DIFFICULTY W/ AMBULATION Diagnosis Discharge Diagnosis (1) Pelvic fracture: Status: Acute Code(s): S32.9XXA - Fracture of unspecified parts of lumbosacral spine and pelvis, initial encounter for closed fracture (2) Difficulty in walking: Status: Acute Code(s): R26.2 - Difficulty in walking, not elsewhere classified (3) LIA (acute kidney injury): Status: Acute Code(s): N17.9 - Acute kidney failure, unspecified Medications at Discharge Home Medications albuterol sulfate 90 mcg/actuation aerosol inhaler 2 puff IH 4X/DAY PRN PRN Sob &/Or Wheezing 05/14/13 montelukast 10 mg tablet 10 mg PO DAILY allergies 05/14/13 apixaban 2.5 mg tablet 2.5 mg PO BID blood thinner 08/29/20 beclomethasone dipropionate 80 mcg/actuation HFA breath activated aerosol 2 puff inhalation BID breathing 08/29/20 biotin 10,000 mcg capsule 5,000 mcg PO DAILY supplement 08/29/20 prednisone 1 mg tablet 5 mg PO DAILY inflammation 08/29/20 metoprolol succinate 25 mg tablet,extended release 24 hr 25 mg PO BID AFIB #0 tabs 11/25/21 calcium 600 mg capsule 600 mg PO DAILY 12/09/21 tizanidine 4 mg tablet 4 mg PO PRN PRN Anxiety 12/09/21 vitamin A 2,400 mcg capsule 2,400 mcg PO DAILY ASK PCP 12/09/21 gabapentin 100 mg capsule 100 mg PO BID 12/26/21 pantoprazole 40 mg tablet,delayed release (Protonix) 40 mg PO BID ASK PCP #60 tabs 12/28/21 sucralfate 1 gram tablet (Carafate) 1 g PO .QID #28 tabs 12/28/21 ondansetron 4 mg disintegrating tablet 8 mg (2 x 4 mg) PO Q8H PRN PRN Nausea #14 tabs 11/14/22 ascorbic acid (vitamin C) 1,000 mg capsule 1 g PO DAILY ASK PCP 06/13/24 clobetasol 0.05 % shampoo 1 applic topical DAILY PRN ASK PCP 06/13/24 cyanocobalamin (vitamin B-12) 1,000 mcg tablet 1,000 mcg PO DAILY ASK PCP 06/13/24 ferrous sulfate 325 mg (65 mg iron) tablet 325 mg PO .COMPLEX ASK PCP 06/13/24 fluticasone propionate 115 mcg-salmeterol 21 mcg/actuation HFA inhaler (Advair HFA) 2 inh inhalation BID ASK PCP 06/13/24 ketoconazole 2 % shampoo 1 applic topical .COMPLEX ASK PCP 06/13/24 potassium chloride 10 mEq capsule,extended release 10 meq PO BID ASK PCP 06/13/24 trazodone 50 mg tablet 50 mg PO QHS ASK PCP 06/13/24 acetaminophen 500 mg tablet 1,000 mg (2 x 500 mg) PO Q8 #0 tabs 06/24/24 furosemide 40 mg tablet 40 mg PO BIDLX #0 tabs 06/24/24 isosorbide mononitrate 20 mg tablet 10 mg (1/2 x 20 mg) PO BID@0800,1500 #0 tabs 06/24/24 oxycodone 5 mg tablet 5 mg PO Q4H PRN PRN Pain Score 4-10 1 day #6 tabs 06/24/24 sennosides 8.6 mg-docusate sodium 50 mg tablet (Stimulant Laxative Plus) 2 tab PO BID PRN constipation #0 tabs 06/24/24 Hospital Course Operations None Procedures 2-D Echocardiogram, EKG and - (CT brain/cervical spine CT/femoral x-ray/pelvic x-ray/CTA chest) Summary of Care Provided Minutes Spent on Discharge: 45 Hospital Course: Mrs. Lopez is an 88-year-old white female who presented to emergency department [facility] on 06/05/2024 status post fall with right hip and pelvic pain. Patient has a history of bilateral hip replacements and uses a 4 point cane for ambulation. She had been with family on the day of presentation when she missed a step and fell. Fall was mechanical in nature. She fell onto her right hip and had acute hip/pelvic pain. In the emergency department labs were overall unremarkable and compared to previous and imaging of the hips and pelvis demonstrated acute incomplete fracture of the right superior rami extending to the right upper pubic symphysis as well as being suspicious for an incomplete fracture of the upper surface of the right inferior pubic ramus. Case was discussed with orthopedic surgery no surgical surgical intervention was required and she was recommended to be weightbearing as tolerated. Given ongoing pain issues in the emergency department patient was not felt to be stable at home and was admitted to the hospital. Vital signs on admission showed a temperature 97.6, heart rate 117 with a repeat at 96, respiratory rate was 15, blood pressure was 121/62 and pulse ox was 98% on room air. Patient's hemoglobin was noted to be low but stably low and she had negative guaiac x 2. No further workup was recommended at this time other than monitoring. She did complain of some shortness of breath and chest pain and an echocardiogram and troponin was cycled. Troponin was unremarkable and echocardiogram showed normal EF at 60% with biatrial enlargement that was mild, mean transmitral valve gradient of 8 mmHg, mild tricuspid valve insufficiency and pulmonary artery systolic pressure of 34. Pleural effusion was suggested and a CTA of her chest with performed which was negative for PE but bilateral pleural effusions that were moderate were noted. Cardiology was consulted and evaluated the patient. They recommended continuing supportive care, continue to address her anemia and continue Eliquis, and further addressing her pulmonary status with ongoing diuretics and potential thoracentesis depending on response with outpatient follow-up to her primary glove sewer at [facility]. She does have known history of mitral valve repair with a ring and a tricuspid valve repair performed several years ago at [facility]. She has a known history of atrial fibrillation and status post Maze procedure at the time of her valvular surgery. She was placed on Lasix 40 mg p.o. twice daily and at the time of discharge was on room air however did have intermittent subjective oxygen requirements. We will continue oxygen as needed on an outpatient basis. I highly recommend that we continue her Lasix 40 mg p.o. twice daily which is increased from her home dose and get a follow-up chest x-ray in 1 week. If she has persistent effusions and thoracentesis may need to be pursued to improve pulmonary status overall. Patient was doing quite well with therapy and should progress nicely from an orthopedic standpoint with ongoing therapy services. She was accepted at [facility] and pre-CERT was obtained from insurance [employer] on 06/24/2024. She is to follow-up with her outpatient glove sewer as previously recommended and her primary care physician within 1 week after discharge from the nursing facility. Again, I highly recommend a repeat chest x-ray be performed in 1 week to reevaluate her pleural effusions and if persistent consideration for thoracentesis be given. I do recommend a repeat CBC in 1 week and a repeat BMP in 3 days with ongoing aggressive diuretics. Patient was discharged to SNF in stable condition on 06/24/2024. Discharge diagnoses: Acute right superior pubic ramus fracture/acute incomplete fracture of the right inferior pubic ramus Bilateral pleural effusion A-fib with RVR Intermittent hypoxia Chronic anemia History of mitral valve and tricuspid valve repair History of Maze procedure CKD stage II Serum creatinine elevation-resolved History of PMR Debility/generalized weakness due to acute fracture Essential hypertension GERD History of constipation Urinary incontinence Physical Exam Const alert, oriented x3, no apparent distress and no limitations Constitutional Narrative: Thin, very pleasant, elderly white female, sitting up in bed talking on telephone, appears comfortable, nontoxic General Appearance: cooperative, comfortable, well kempt and well developed HEENT normocephalic, head/scalp atraumatic and moist oral mucous membranes; Negative for hearing grossly normal bilaterally HEENT Narrative: Mild hearing loss, mild temporal wasting Eyes PERRL Eyes Narrative: No scleral icterus Resp normal respiratory effort, no retractions, no use of accessory muscles and clear to auscultation bilaterally Resp Narrative: Slightly diminished at bases bilaterally with no adventitious sounds Auscultation: Negative for rales, rhonchi or wheezes Cardio regular rate, regular rhythm, S1 normal heart sound, S2 normal heart sound, no rub, no gallops and no clicks; Negative for no murmurs Cardio Narrative: 3/6 systolic murmur GI normal to inspection, nondistended, normoactive bowel sounds, soft to palpation and non-tender GI Narrative: Scaphoid abdomen Extremity no clubbing, cyanosis or edema Skin skin turgor normal and no jaundice Skin Narrative: Scattered ecchymotic changes on bilateral upper and lower extremities in various stages of healing ecchymosis in right leg related to pelvic fracture Neuro oriented x3 and no sensory deficits noted Neuro Narrative: No focal deficits but difficulty moving right lower extremity due to pain in the pelvis region related to fracture Speech: speech normal Psych affect normal Psych Narrative: Very pleasant, interacts appropriately Weight / BMI Weight Weight: 54.885 kg Body Mass Index (BMI) 19.5 ABG / Lab / Microbiology Data 06/24/24 06:34 06/24/24 06:34 Laboratory: Laboratory Results - last 24 hr 06/24/24 06:34: WBC 4.7, RBC 2.83 L, Hgb 8.3 L, Hct 26.5 L, MCV 93.6, MCH 29.3, MCHC 31.3 L, RDW Std Deviation 48.5 H, RDW Coeff of Carey 14.1, Plt Count 396, MPV 9.1, Immature Gran % (Auto) 0.400, Neut % (Auto) 61.3, Lymph % (Auto) 23.7, Finney % (Auto) 8.3, Eos % (Auto) 5.5 H, Baso % (Auto) 0.8, Absolute Neuts (auto) 2.9, Absolute Lymphs (auto) 1.12, Nucleated RBC % 0, Sodium 140, Potassium 3.9, C hloride 110 H, Carbon Dioxide 25.0, Anion Gap 6, BUN 21 H, Creatinine 0.89, Estim Creat Clear Calc 38.59, Est GFR (MDRD) Af Amer 77, Est GFR (MDRD) Non-Af 63, BUN/Creatinine Ratio 23.5 H, Glucose 94, Calcium 8.7 Microbiology: Microbiology 06/20/24 19:45 Urine, Clean Catch Legionella Antigen - Final 06/20/24 19:45 Urine, Clean Catch Streptococcus pneumoniae Antigen (M - Final 06/20/24 13:20 Nasal Secretion MRSA (PCR) - Final 06/20/24 13:20 Mucosa - Nose SARS-CoV-2, Influenza & RSV (PCR) - Final 06/18/24 19:00 Stool Stool Occult Blood ([facility]) - Final D/C Instructions Discharge Diet: Low fat / Low cholesterol (Limit sodium to 3 g or less daily/limit fluids to 2 L daily) Discharge Activity: Use Walker (Weightbearing as tolerated) DC O2, CPAP, BIPAP Needs PSN CPAP & BiPAP: BiPAP & CPAP Settings per PSN Fraction of Inspired Oxygen ( 98 06/23/24 02:13 FIO2) Home Oxygen Instructions: Home O2 discharge Instructions Type of respiratory needs? Oxygen 06/24/24 14:14 DC Oxygen Instruction Oxygen frequency Other 06/24/24 14:14 Other oxygen liters per minute 2 06/24/24 14:14 Other oxygen frequency prn 06/24/24 14:14 Additional Home O2 Discharge instructions: Yes Type of respiratory needs?: Oxygen Oxygen frequency: Other Other oxygen liters per minute: 2 Other oxygen frequency: PRN DC home with Oxygen: No Meaningful Use Info Meaningful Use Meaningful Use Diagnoses (Choose all that apply): None applicable Ischemic Stroke Statin Dosing Therapy Reference: STATIN DOSE THERAPY REFERENCE: * Patients > 75 years receive moderate or high dose statin therapy. * Patients 75 years or YOUNGER should receive HIGH intensity statin dose unless contraindicated. You will be required to document reason for non-treatment if statin daily dose does not meet guidelines. HIGH DOSE STATIN THERAPY DAILY Atorvastatin > than or = to 40 mg Rosuvastatin > than or = to 20 mg Amlodipine + Atorvastatin > than or = to 2.5/40 mg Ezetimibe + Simvastatin 10/80 mg Simvastatin 80mg Discharge Plan Admission Admit Date/Time: 06/13/24 21:57 Primary Reason for Your Visit: Pelvic pain status post fall Attending Provider: Lexus Moffett Primary Care Provider: Cielo Ribeiro Consulting Providers: Craig Purdy; Mario Ramirez; Harley Hernandez; Jack Booth Instructions Additional Instructions / Restrictions: 1. He will need follow-up chest x-ray in 2 weeks for fluid buildup on your lungs for reassessment as if this does not improve with water pill may need to consider pulling fluid off via a procedure called a thoracentesis. Discharge Orders/Prescriptions Prescriptions: New furosemide 40 mg Tablet 40 mg PO BIDLX Qty: 0 0RF isosorbide mononitrate 20 mg Tablet 10 mg PO BID@0800,1500 Qty: 0 0RF sennosides-docusate sodium [Stimulant Laxative Plus] 8.6-50 mg Tablet 2 tab PO BID PRN (Reason: constipation) Qty: 0 0RF acetaminophen 500 mg Tablet 1,000 mg PO Q8 Qty: 0 0RF oxycodone 5 mg Tablet 5 mg PO Q4H PRN PRN (Reason: Pain Score 4-10) 1 Days Qty: 6 0RF Continued montelukast 10 MG tablet 10 mg PO DAILY Patient Comments: [employer] albuterol sulfate 6.7 GM HFA aerosol inhaler 2 puff IH 4X/DAY PRN PRN (Reason: Sob &/Or Wheezing) Patient Comments: BREATHING prednisone 1 MG tablet 5 mg PO DAILY biotin 10,000 MCG capsule 5,000 mcg PO DAILY apixaban 2.5 MG tablet 2.5 mg PO BID beclomethasone dipropionate 1 PUFF inhaler 2 puff INHALATION BID metoprolol succinate 25 MG tablet extended release 24 hr 25 mg PO BID Qty: 0 0RF Rx Instructions: Take one 25mg Tablets, twice daily (once in there morning, once in the evening). calcium 600 mg Capsule 600 mg PO DAILY vitamin A 2,400 mcg Capsule 2,400 mcg PO DAILY tizanidine 4 mg tablet 4 mg PO PRN PRN (Reason: Anxiety) gabapentin 100 mg capsule 100 mg PO BID Patient Comments: TAKE 1 CAPSULE BY MOUTH ONCE DAILY AT BEDTIME FOR 30 DAYS sucralfate [Carafate] 1 gram tablet 1 g PO .QID Qty: 28 0RF Rx Instructions: If you are unable to swallow this medication, stop it-make sure you take your pantoprazole pantoprazole [Protonix] 40 mg tablet,delayed release (DR/EC) 40 mg PO BID Qty: 60 0RF ondansetron 4 mg tablet,disintegrating 8 mg PO Q8H PRN PRN (Reason: Nausea) Qty: 14 0RF ascorbic acid (vitamin C) 1,000 mg capsule 1 g PO DAILY clobetasol 0.05 % shampoo 1 applic topical DAILY PRN (Reason: ASK PCP) cyanocobalamin (vitamin B-12) 1,000 mcg tablet 1,000 mcg PO DAILY fluticasone propion-salmeterol [Advair HFA] 115-21 mcg/actuation HFA aerosol inhaler 2 inh inhalation BID ketoconazole 2 % shampoo 1 applic topical .COMPLEX Rx Instructions: 1 applic topically 2-3 TIMES WEEKLY; potassium chloride 10 mEq capsule, extended release 10 meq PO BID trazodone 50 mg tablet 50 mg PO QHS ferrous sulfate 325 mg (65 mg iron) tablet 325 mg PO .COMPLEX Rx Instructions: 325 mg orally EVERY MONDAY, MONDAY, AND MONDAY; Discontinued furosemide 20 MG tablet 20 mg PO DAILY oxycodone 5 mg tablet 5 mg PO BID Patient Comments: TAKE 1 TABLET BY MOUTH TWICE DAILY NEEDED FOR PAIN FOR UP TO 7 DAYS oxycodone-acetaminophen [Percocet] 5-325 mg tablet 1 tab PO Q8H PRN (Reason: pain) 2 Days Qty: 7 0RF cephalexin 500 mg capsule 500 mg PO Q6 Qty: 40 0RF sulfamethoxazole-trimethoprim [Bactrim DS] 800-160 mg tablet 1 tab PO BID Qty: 20 0RF torsemide 20 mg tablet 20 mg PO BID Referrals / Follow Up: Cielo Ribeiro MD [Primary Care Provider] - Within 1 Week Disposition Disposition (needs filled in before D/C Order can be placed): [facility] Charges/Coding Visit Charges Inpatient E&M: 73515 SNF Disch >30 Min
[2024-06-24 13:26] VITALS: BP 107/60; PULSE 84; RESP 18; TEMP 36.6; O2SAT 98
--- NOTE | 2024-06-24 14:10 | PCM.TXEXTCAR ---
Diet Diet Order/Speech Therapy: 06/13/24 23:11 Diet: Regular - General Food consistency:: Regular Liquid Consistency:: Regular/Thin Diet Comments: chocolate fortified pudding tid w/ meals Routine Orders/Code Status Suppository Type: Dulcolax 10mg Suppository Frequency: Daily PRN Routine Lab Work: CBC (1 week) and BMP (3 days to reassess renal function) Code Status: DNRCC-A (no ETT) DC O2, CPAP, BIPAP needs PSN CPAP & BiPAP: BiPAP & CPAP Settings per PSN Fraction of Inspired Oxygen ( 98 06/23/24 02:13 FIO2) Additional Home O2 Discharge instructions: Yes Type of respiratory needs?: Oxygen Oxygen frequency: Other Other oxygen liters per minute: 2 Other oxygen frequency: prn Wound(s) right ibrahim: Wound Type: Abrasion Suggestions for Active Care Change Position every (hours): 2 Hours to sit in a chair: 3 Times a day to sit in chair: 2 Therapies Weight Bearing: Weight bearing as tolerated Extremity Affected:: Bilateral Lower Physical Therapy: Eval and Treat Occupational Therapy: Eval and Treat Problem/Diagnosis (1) Pelvic fracture: Status: Acute Code(s): S32.9XXA - Fracture of unspecified parts of lumbosacral spine and pelvis, initial encounter for closed fracture (2) Difficulty in walking: Status: Acute Code(s): R26.2 - Difficulty in walking, not elsewhere classified (3) LIA (acute kidney injury): Status: Acute Code(s): N17.9 - Acute kidney failure, unspecified Allergies/Procedures Done in Hospital Allergies No Known Allergies Allergy (Verified 11/17/22 08:33) Procedures: 2-D Echocardiogram and - (CT brain/CT cervical spine/femur x-ray/pelvic x-ray/CTA chest) Type of Care/Length of Stay Estimated LOS: Convalescent Care Less Than 30 days Type of Care Needed: Skilled Rehab Potential: Good Prognosis: Fair Additional Orders/Day of Discharge Additional Orders: CXR 1 week to reevaluate plural effusion Day of Discharge: 06/24/24 Dietary and Speech Recommendations Dietitian Recommendations/Changes: Continue regular diet and chocolate fortified pudding TID with meals. Pt refused ONS at this time. Will monitor weight, as available. Reviewed and approved by Ana María Aguirre RDN, JOSS. Discharge Plan Admission Admit Date/Time: 06/13/24 21:57 Primary Reason for Your Visit: Pelvic pain status post fall Attending Provider: Lexus Moffett Primary Care Provider: Cielo Ribeiro Consulting Providers: Craig Purdy; Mario Ramirez; Harley Hernandez; Jack Booth Instructions Additional Instructions / Restrictions: 1. He will need follow-up chest x-ray in 2 weeks for fluid buildup on your lungs for reassessment as if this does not improve with water pill may need to consider pulling fluid off via a procedure called a thoracentesis. Discharge Orders/Prescriptions Prescriptions: New furosemide 40 mg Tablet 40 mg PO BIDLX Qty: 0 0RF isosorbide mononitrate 20 mg Tablet 10 mg PO BID@0800,1500 Qty: 0 0RF sennosides-docusate sodium [Stimulant Laxative Plus] 8.6-50 mg Tablet 2 tab PO BID PRN (Reason: constipation) Qty: 0 0RF acetaminophen 500 mg Tablet 1,000 mg PO Q8 Qty: 0 0RF oxycodone 5 mg Tablet 5 mg PO Q4H PRN PRN (Reason: Pain Score 4-10) 1 Days Qty: 6 0RF Continued montelukast 10 MG tablet 10 mg PO DAILY Patient Comments: SEASONALL ALLERGIES albuterol sulfate 6.7 GM HFA aerosol inhaler 2 puff IH 4X/DAY PRN PRN (Reason: Sob &/Or Wheezing) Patient Comments: BREATHING prednisone 1 MG tablet 5 mg PO DAILY biotin 10,000 MCG capsule 5,000 mcg PO DAILY apixaban 2.5 MG tablet 2.5 mg PO BID beclomethasone dipropionate 1 PUFF inhaler 2 puff INHALATION BID metoprolol succinate 25 MG tablet extended release 24 hr 25 mg PO BID Qty: 0 0RF Rx Instructions: Take one 25mg Tablets, twice daily (once in there morning, once in the evening). calcium 600 mg Capsule 600 mg PO DAILY vitamin A 2,400 mcg Capsule 2,400 mcg PO DAILY tizanidine 4 mg tablet 4 mg PO PRN PRN (Reason: Anxiety) gabapentin 100 mg capsule 100 mg PO BID Patient Comments: TAKE 1 CAPSULE BY MOUTH ONCE DAILY AT BEDTIME FOR 30 DAYS sucralfate [Carafate] 1 gram tablet 1 g PO .QID Qty: 28 0RF Rx Instructions: If you are unable to swallow this medication, stop it-make sure you take your pantoprazole pantoprazole [Protonix] 40 mg tablet,delayed release (DR/EC) 40 mg PO BID Qty: 60 0RF ondansetron 4 mg tablet,disintegrating 8 mg PO Q8H PRN PRN (Reason: Nausea) Qty: 14 0RF ascorbic acid (vitamin C) 1,000 mg capsule 1 g PO DAILY clobetasol 0.05 % shampoo 1 applic topical DAILY PRN (Reason: ASK PCP) cyanocobalamin (vitamin B-12) 1,000 mcg tablet 1,000 mcg PO DAILY fluticasone propion-salmeterol [Advair HFA] 115-21 mcg/actuation HFA aerosol inhaler 2 inh inhalation BID ketoconazole 2 % shampoo 1 applic topical .COMPLEX Rx Instructions: 1 applic topically 2-3 TIMES WEEKLY; potassium chloride 10 mEq capsule, extended release 10 meq PO BID trazodone 50 mg tablet 50 mg PO QHS ferrous sulfate 325 mg (65 mg iron) tablet 325 mg PO .COMPLEX Rx Instructions: 325 mg orally EVERY MONDAY, MONDAY, AND MONDAY; Discontinued furosemide 20 MG tablet 20 mg PO DAILY oxycodone 5 mg tablet 5 mg PO BID Patient Comments: TAKE 1 TABLET BY MOUTH TWICE DAILY NEEDED FOR PAIN FOR UP TO 7 DAYS oxycodone-acetaminophen [Percocet] 5-325 mg tablet 1 tab PO Q8H PRN (Reason: pain) 2 Days Qty: 7 0RF cephalexin 500 mg capsule 500 mg PO Q6 Qty: 40 0RF sulfamethoxazole-trimethoprim [Bactrim DS] 800-160 mg tablet 1 tab PO BID Qty: 20 0RF torsemide 20 mg tablet 20 mg PO BID Referrals / Follow Up: Cielo Ribeiro MD [Primary Care Provider] - Within 1 Week Disposition Disposition (needs filled in before D/C Order can be placed): [facility]
--- NOTE | 2024-06-24 14:30 | PHA.DC.MR.R ---
Pharmacy [facility]con[facility] has performed discharge medication reconciliation for this patient. The patient's discharge medication list was reviewed for discrepancies and discrepancies were resolved. Medications at Discharge Home Medications albuterol sulfate 90 mcg/actuation aerosol inhaler 2 puff IH 4X/DAY PRN PRN Sob &/Or Wheezing 05/14/13 montelukast 10 mg tablet 10 mg PO DAILY allergies 05/14/13 apixaban 2.5 mg tablet 2.5 mg PO BID blood thinner 08/29/20 beclomethasone dipropionate 80 mcg/actuation HFA breath activated aerosol 2 puff inhalation BID breathing 08/29/20 biotin 10,000 mcg capsule 5,000 mcg PO DAILY supplement 08/29/20 prednisone 1 mg tablet 5 mg PO DAILY inflammation 08/29/20 metoprolol succinate 25 mg tablet,extended release 24 hr 25 mg PO BID AFIB #0 tabs 11/25/21 calcium 600 mg capsule 600 mg PO DAILY 12/09/21 tizanidine 4 mg tablet 4 mg PO PRN PRN Anxiety 12/09/21 vitamin A 2,400 mcg capsule 2,400 mcg PO DAILY ASK PCP 12/09/21 gabapentin 100 mg capsule 100 mg PO BID 12/26/21 pantoprazole 40 mg tablet,delayed release (Protonix) 40 mg PO BID ASK PCP #60 tabs 12/28/21 sucralfate 1 gram tablet (Carafate) 1 g PO .QID #28 tabs 12/28/21 ondansetron 4 mg disintegrating tablet 8 mg (2 x 4 mg) PO Q8H PRN PRN Nausea #14 tabs 11/14/22 ascorbic acid (vitamin C) 1,000 mg capsule 1 g PO DAILY ASK PCP 06/13/24 clobetasol 0.05 % shampoo 1 applic topical DAILY PRN ASK PCP 06/13/24 cyanocobalamin (vitamin B-12) 1,000 mcg tablet 1,000 mcg PO DAILY ASK PCP 06/13/24 ferrous sulfate 325 mg (65 mg iron) tablet 325 mg PO .COMPLEX ASK PCP 06/13/24 fluticasone propionate 115 mcg-salmeterol 21 mcg/actuation HFA inhaler (Advair HFA) 2 inh inhalation BID ASK PCP 06/13/24 ketoconazole 2 % shampoo 1 applic topical .COMPLEX ASK PCP 06/13/24 potassium chloride 10 mEq capsule,extended release 10 meq PO BID ASK PCP 06/13/24 trazodone 50 mg tablet 50 mg PO QHS ASK PCP 06/13/24 acetaminophen 500 mg tablet 1,000 mg (2 x 500 mg) PO Q8 #0 tabs 06/24/24 furosemide 40 mg tablet 40 mg PO BIDLX #0 tabs 06/24/24 isosorbide mononitrate 20 mg tablet 10 mg (1/2 x 20 mg) PO BID@0800,1500 #0 tabs 06/24/24 oxycodone 5 mg tablet 5 mg PO Q4H PRN PRN Pain Score 4-10 1 day #6 tabs 06/24/24 sennosides 8.6 mg-docusate sodium 50 mg tablet (Stimulant Laxative Plus) 2 tab PO BID PRN constipation #0 tabs 06/24/24
--- NOTE | 2024-06-24 15:15 | CASEMGMT ---
Discharge Planning Discharge orders, signed med list, and transport time sent to [facility] via [facility]. Physicians will transport patient by wheelchair at 4p. Nursing, SW, patient, and her son (Say) updated. Tahira Ralph DC Planning Asst.
--- NOTE | 2024-06-24 15:15 | CASEMGMT ---
Social Work Precert has been obtained.? Physician updated and pt is ready for discharge today.? [facility] convalescent form completed in [facility]. [facility] notified of discharge. Disposition:[facility], skilled level of care under convalescent stay. SAGAR Edwards
--- NOTE | 2024-06-24 15:28 | NURSING ---
REPORT CALLED TO NURSE OGDEN AT [facility]
[2024-06-24 16:22] VITALS: BP 120/72; PULSE 87; RESP 18; TEMP 36.7; O2SAT 96
--- NOTE | 2024-06-24 16:25 | NURSING ---
REPORT GIVEN TO DEMETRI
== END 2024-06-24 16:27 | disposition skilled nursing facility (03) | DRG 536 ==
LOC: ED 19:13 → MS3 22:25
PROVIDERS: Family Medicine; Internal Medicine; Admitting Provider Hospitalist; Emergency Provider Surgery; PCP Internal Medicine; Referring Provider Surgery; Visit Provider Internal Medicine
DX: S32.511A Fracture of superior rim of right pubis, initial encounter for closed fracture (principal); J90 Pleural effusion, not elsewhere classified; N17.9 Acute kidney failure, unspecified; I48.11 Longstanding persistent atrial fibrillation; I13.0 Hypertensive heart and chronic kidney disease with heart failure and stage 1 through stage 4 chronic kidney disease, or unspecified chronic kidney disease; I50.32 Chronic diastolic (congestive) heart failure; I27.21 Secondary pulmonary arterial hypertension; E86.0 Dehydration; D47.2 Monoclonal gammopathy; Z66 Do not resuscitate; D50.9 Iron deficiency anemia, unspecified; E04.2 Nontoxic multinodular goiter; J45.909 Unspecified asthma, uncomplicated; Z95.2 Presence of prosthetic heart valve; S00.03XA Contusion of scalp, initial encounter; I34.0 Nonrheumatic mitral (valve) insufficiency; M79.7 Fibromyalgia; S80.811A Abrasion, right lower leg, initial encounter; W10.9XXA Fall (on) (from) unspecified stairs and steps, initial encounter; S32.591A Other specified fracture of right pubis, initial encounter for closed fracture; K21.9 Gastro-esophageal reflux disease without esophagitis; R26.2 Difficulty in walking, not elsewhere classified; K59.09 Other constipation; I36.1 Nonrheumatic tricuspid (valve) insufficiency; N18.2 Chronic kidney disease, stage 2 (mild); I44.4 Left anterior fascicular block; R09.02 Hypoxemia; R53.81 Other malaise; R53.1 Weakness; Y92.009 Unspecified place in unspecified non-institutional (private) residence as the place of occurrence of the external cause; R91.8 Other nonspecific abnormal finding of lung field; R32 Unspecified urinary incontinence; G89.29 Other chronic pain; M81.0 Age-related osteoporosis without current pathological fracture; Z79.01 Long term (current) use of anticoagulants; Y93.01 Activity, walking, marching and hiking; Z90.49 Acquired absence of other specified parts of digestive tract; Z96.643 Presence of artificial hip joint, bilateral; Z79.899 Other long term (current) drug therapy; Z98.890 Other specified postprocedural states
CPT/HCPCS: 36415; 70450; 71275; 72125; 72170; 73552; 80048; 80053; 82274; 82607; 82746; 83540; 83550; 83735; 84100; 84484; 85025; 85027; 87449; 87631; 87641; 93005; 93306; 94640; 94668; 97110; 97116; 97162; 97166; 97530; 97535; 97803; 99284; J7030; J7050; Q9967; A4216; J0696; J1940; J2916